=== PATIENT | female | born 1970 | race Caucasian/White ===

== ENCOUNTER 2019-03-02 12:12 | Emergency (ER) | payer MEDICARE, MEDICAID, SELFPAY ==
[2019-03-02 12:33] VITALS: BP 117/71; PULSE 80; RESP 18; TEMP 36.6; O2SAT 97; BMI 34.2
[2019-03-02 14:30] LABS: Basophils # 0.1 10^3/uL (0.0-0.1); Basophils % 0.8 %; Eosinophils # 0.1 10^3/uL (0.0-0.8); Hematocrit 42.7 % (37.0-47.0); Hemoglobin 14.5 g/dL (11.5-15.3); Lymphocytes # 2.1 10^3/uL (0.8-4.8); Lymphocytes % 33.1 %; Mean Corpuscular Hemoglobin 31.4 pg (28.0-34.0); Mean Corpuscular Volume 92.4 fL (81-99); Mean Platelet Volume 9.3 fL (7.4-10.4); Monocytes # 0.4 10^3/uL (0.2-0.9); Monocytes % 6.1 %; Neutrophils # 3.6 10^3/uL (1.8-7.7); Neutrophils % 58.5 %; Nucleated Red Blood Cells % 0 %; Platelet Count 279 10^3/cmm (130-400); Red Blood Count 4.62 10^6/uL (4.1-5.3); Red Cell Distribution Width 14.9 % (12.1-15.1); White Blood Count 6.2 10^3/uL (4.0-10.0)
[2019-03-02 14:48] LABS: Alanine Aminotransferase 29 U/L (0-33); Albumin Level 5.4 g/dL (3.5-5.2); Alkaline Phosphatase 79 IU/L (35-105); Anion Gap 17.9 (5-19); Aspartate Amino Transferase 22 U/L (0-32); Blood Urea Nitrogen 14 mg/dL (6-20); Calcium 10.1 mg/Dl (8.6-10.0); Carbon Dioxide 21 mmol/L (22-29); Chloride 104 mmol/L (98-107); Glomerular Filtration Rate 58.5 mL/min (90-130); Glucose 94 mg/dL (74-109); Lipase 26 U/L (13-60); Potassium 3.9 mmol/L (3.5-5.1); Sodium 139 mmol/L (136-145); Total Bilirubin 0.8 mg/dL (0.15-1.2); Total Protein 7.4 g/dL (6.6-8.7)
--- NOTE | 2019-03-02 18:19 | W.ED.GENADLT ---
HPI - General Adult General: Chief complaint: Abdominal Pain Stated complaint: Thinks has CDiff Time Seen by Provider: 03/02/19 18:08 History of Present Illness: Associated symptoms: Deny chest pain, dyspnea, headache(s), nausea, rash or vomiting Review of Systems Const: Denies: fever, chills or body aches Eyes: Denies: change in vision or blurry vision ENMT: Denies: throat pain or nasal congestion Card: Denies: chest pain or shortness of breath on exertion Resp: Denies: shortness of breath, productive cough or non-productive cough GI: Reports: abdominal pain, change in bowel habits and change in stool character (smells like c diff she has had before with her colostomy); Denies: nausea or vomiting Musc: Reports: neck pain, back pain and extremity pain Skin/Breast: Denies: rash Neuro: Denies: headache Psych: Denies: anxiety or depression Alcon/Lymph: Denies: easy bruising PFSH ED PFSH: Statuses (acute, chronic, etc) shown below reflect problem list status as previously entered and may not be historically accurate Social History Smoking and tobacco status: current every day smoker Physical Exam Const: COMMON NORMALS: no apparent distress, average body habitus and oriented x3 HENMT: COMMON NORMALS: normocephalic HEAD & SCALP: normal to inspection and normocephalic FACE & SINUS: normal facial exam Eye: COMMON NORMALS: conjunctivae normal GENERAL EYE: normal appearance of both eyes CONJUNCTIVA: Yes conjunctivae normal Neck/C-Spine: COMMON NORMALS: no JVD Chest: COMMONS NORMALS: inspection of chest normal Resp: COMMON NORMALS: normal respiratory effort and clear to auscultation bilaterally AUSCULTATION: clear to auscultation bilaterally Cardio: COMMON NORMALS: no JVD, regular rate and regular rhythm RATE: regular rate RHYTHM: regular rhythm GI: COMMON NORMALS: normal to inspection, nondistended, normoactive bowel sounds Back/Pelvis: THORACIC SPINE/UPPER BACK: Yes paraspinal muscle tenderness LUMBAR SPINE/LOWER BACK: Yes paraspinal muscle tenderness PELVIS: Yes tenderness over symphysis pubis Extremity: COMMON NORMALS: normal to inspection and full ROM Neuro: COMMON NORMALS: oriented x3 Course Vital Signs: Vital signs: Vital Signs Temperature 97.9 F 03/02/19 12:33 Pulse Rate 80 03/02/19 12:33 Respiratory Rate 18 03/02/19 12:33 Blood Pressure 117/71 03/02/19 12:33 Pulse Oximetry 97 03/02/19 12:33 [facility] - General Adult Lab Data: Labs: Lab Results 03/02/19 03/02/19 Range/Units 14:22 14:22 WBC 6.2 (4.0-10.0) 10^3/ uL RBC 4.62 (4.1-5.3) 10^6/u L Hgb 14.5 (11.5-15.3) g/dL Hct 42.7 (37.0-47.0) % MCV 92.4 (81-99) fL MCH 31.4 (28.0-34.0) pg MCHC 34.0 (30.0-36.0) g/dL RDW 14.9 (12.1-15.1) % Plt Count 279 (130-400) 10^3/c mm MPV 9.3 (7.4-10.4) fL Neut % (Auto) 58.5 % Lymph % (Auto) 33.1 % Hendricks % (Auto) 6.1 % Eos % (Auto) 1.0 % Baso % (Auto) 0.8 % Neut # (Auto) 3.6 (1.8-7.7) 10^3/u L Lymph # (Auto) 2.1 (0.8-4.8) 10^3/u L Hendricks # (Auto) 0.4 (0.2-0.9) 10^3/u L Eos # (Auto) 0.1 (0.0-0.8) 10^3/u L Baso # (Auto) 0.1 (0.0-0.1) 10^3/u L Nucleated RBC % (a uto) 0 % Nucleated RBCs # 0.0 /100WBC Sodium 139 (136-145) mmol/L Potassium 3.9 (3.5-5.1) mmol/L Chloride 104 (98-107) mmol/L Carbon Dioxide 21 L (22-29) mmol/L Anion Gap 17.9 (5-19) BUN 14 (6-20) mg/dL Creatinine 1.0 H (0.5-0.9) mg/dL GFR Calculation 58.5 L (90-130) mL/min Glucose 94 (74-109) mg/dL Calcium 10.1 H (8.6-10.0) mg/Dl Total Bilirubin 0.8 (0.15-1.2) mg/dL AST 22 (0-32) U/L ALT 29 (0-33) U/L Alkaline Phosphata se 79 (35-105) IU/L Total Protein 7.4 (6.6-8.7) g/dL Albumin 5.4 H (3.5-5.2) g/dL Globulin 2.0 (1.3-4.6) g/dL Lipase 26 (13-60) U/L Discharge Plan Discharge Patient Disposition: Home, Self-Care Clinical Impression: Diarrhea, Chronic back pain Condition: Stable Prescriptions: No Action Pending RF: 0 Referrals: Ayan Jay MD [Primary Care Provider] - Discharge Diet: Advance as tolerated Discharge Activity: Increase activity as tolerated Patient Instructions: Acute Diarrhea (ED) Activity Restrictions/Additional Instructions: follow up with PCP as directed in 1 week, lortab 5/325 #10 1 q 6 hours prn, and flagyl 500mg bid for 10 days Coding Level of Care Code ED Summer Law Associate for Vicente Tobin
[2019-03-02 19:01] VITALS: BP 109/61; PULSE 72; RESP 18; O2SAT 92
== END 2019-03-02 18:45 | disposition home or self-care (01) ==
PROVIDERS: Physician Assistant; Emergency Provider Nurse Practitioner Family; Family Provider Family Medicine; PCP Family Medicine
DX: R19.7 Diarrhea, unspecified (principal); G89.29 Other chronic pain; M54.9 Dorsalgia, unspecified; F17.210 Nicotine dependence, cigarettes, uncomplicated
CPT/HCPCS: 36415; 80053; 83690; 85025; 87493; 99282

== ENCOUNTER 2019-03-11 17:04 | Emergency (ER) | payer MEDICARE, MEDICAID, SELFPAY ==
[2019-03-11] VITALS (9 sets, daily range): BP systolic 104–112; BP diastolic 54–78; PULSE 80–92; RESP 17–22; TEMP 36.4; O2SAT 94–99; BMI 34.2
--- NOTE | 2019-03-11 18:47 | ED_ITS ---
HPI - Abdominal Pain General: Chief Complaint: Abdominal Pain Stated Complaint: puking Time Seen by Provider: 03/11/19 18:06 History of Present Illness: HPI narrative: Patient is a 49-year-old female comes into the ED with nausea, vomiting and diarrhea and abdominal pain starting a week ago. Denies a fever but does have chills. Patient does have a headache and states that her colonoscopy has had more output the last 24 hours then usual. Denies chest pain, shortness of breath, Numbness or tingling to the extremities, weakness to the extremities, upper respiratory symptoms, cough, dysuria, hematuria or blood in ostomy output. Patient was seen for abdominal pain that we go and was put on a prescription of Keflex and still has multiple doses left of Keflex course. Review of Systems General: Reports: 10 or more systems reviewed and unremarkable except in HPI and below PFSH ED PFSH: Statuses (acute, chronic, etc) shown below reflect problem list status as previously entered and may not be historically accurate Social History Smoking and tobacco status: current every day smoker Physical Exam Const: COMMON NORMALS: oriented x3 HENMT: COMMON NORMALS: normocephalic HEAD & SCALP: normocephalic MOUTH: moist mucous membranes abnormal (mild) Details: parched THROAT: posterior oropharynx normal and uvula midline Neck/C-Spine: COMMON NORMALS: supple GENERAL: Yes normal visual inspection Resp: COMMON NORMALS: normal respiratory effort, no retractions, no use of accessory muscles and clear to auscultation bilaterally AUSCULTATION: clear to auscultation bilaterally Cardio: COMMON NORMALS: regular rate, regular rhythm, S1 normal heart sound, S2 normal heart sound, no gallops, no clicks, no murmurs and peripheral pulses 2+ throughout RATE: regular rate RHYTHM: regular rhythm HEART SOUNDS: S1 normal and S2 normal PERIPHERAL PULSES: pulses 2+ throughout GI: COMMON NORMALS: normal to inspection, nondistended, normoactive bowel sounds, soft to palpation, non-tender and no masses INSPECTION: Yes ostomy present AUSCULTATION: Yes normoactive bowel sounds PALPATION: Yes soft and Yes tender (mild generalized throughout abdomen) : COMMON NORMALS: Yes no CVA tenderness BLADDER/KIDNEY EXAM: Yes no CVA tenderness Back/Pelvis: COMMON NORMALS: no CVA tenderness Neuro: COMMON NORMALS: oriented x3 GAIT: Yes normal gait Skin: COMMON NORMALS: no rashes or lesions noted GENERAL SKIN EXAM: no rashes or lesions noted Course ED course: CT scan of the abdomen and pelvis showed mild colitis. Patient's pain and nausea improved with pain meds, IV fluids and Zofran. Vital Signs: Vital signs: Vital Signs Temperature 97.5 F L 03/11/19 17:44 Pulse Rate 80 03/11/19 23:59 Respiratory Rate 17 03/11/19 23:00 Blood Pressure 108/54 03/11/19 23:59 Pulse Oximetry 94 03/11/19 23:59 MDM - Abdominal Pain Lab Data: Labs: Lab Results 03/11/19 03/11/19 Range/Units 19:04 19:04 WBC 10.5 H (4.0-10.0) 10^3/ uL RBC 4.85 (4.1-5.3) 10^6/u L Hgb 15.3 (11.5-15.3) g/dL Hct 44.8 (37.0-47.0) % MCV 92.4 (81-99) fL MCH 31.5 (28.0-34.0) pg MCHC 34.2 (30.0-36.0) g/dL RDW 14.6 (12.1-15.1) % Plt Count 232 (130-400) 10^3/c mm MPV 9.3 (7.4-10.4) fL Neut % (Auto) 89.0 % Lymph % (Auto) 4.4 % Gates % (Auto) 4.5 % Eos % (Auto) 1.2 % Baso % (Auto) 0.3 % Neut # (Auto) 9.3 H (1.8-7.7) 10^3/u L Lymph # (Auto) 0.5 L (0.8-4.8) 10^3/u L Gates # (Auto) 0.5 (0.2-0.9) 10^3/u L Eos # (Auto) 0.1 (0.0-0.8) 10^3/u L Baso # (Auto) 0.0 (0.0-0.1) 10^3/u L Nucleated RBC % (a uto) 0 % Nucleated RBCs # 0.0 /100WBC Sodium 135 L (136-145) mmol/L Potassium 4.3 (3.5-5.1) mmol/L Chloride 98 (98-107) mmol/L Carbon Dioxide 24 (22-29) mmol/L Anion Gap 17.3 (5-19) BUN 13 (6-20) mg/dL Creatinine 1.1 H (0.5-0.9) mg/dL GFR Calculation 52.4 L (90-130) mL/min Glucose 113 H (74-109) mg/dL Calcium 10.4 H (8.6-10.0) mg/Dl Total Bilirubin 0.9 (0.15-1.2) mg/dL AST 34 H (0-32) U/L ALT 37 H (0-33) U/L Alkaline Phosphata se 77 (35-105) IU/L Total Protein 7.5 (6.6-8.7) g/dL Albumin 4.8 (3.5-5.2) g/dL Globulin 2.7 (1.3-4.6) g/dL Discharge Plan Discharge Patient Disposition: Home, Self-Care Clinical Impression: Colitis Condition: Stable Prescriptions: New Zofran 4 mg tablet 4 mg PO DAILY Qty: 14 RF: 0 dicyclomine 20 mg tablet 20 mg PO QID 7 Days Qty: 28 RF: 0 No Action Pending RF: 0 Discharge Orders: Discharge Order (Routine); Ordered 03/11/19 Ordered By: Gustabo Salamanca Referrals: Ayan Jay MD [Primary Care Provider] - Discharge Diet: Advance as tolerated Discharge Activity: Increase activity as tolerated Activity Restrictions/Additional Instructions: Follow-up with her primary care doctor in 5-7 days for reevaluation. Take Tylenol as needed for fevers. Take the Prescribed Zofran as needed for nausea and the dicyclomine for abdominal pain and cramping. Drink plenty of fluids. Return to the ED if symptoms continue to worsen or he is showing signs of dehydration. Continue taking your previously prescribed antibiotic Keflex. Continue all home medications. Discharge Date/Time: 03/12/19 00:00 Coding Level of Care Code ED Promotional Advertising Assistant for Vicente Tobin
[2019-03-11 19:11] LABS: Basophils % 0.3 %; Eosinophils # 0.1 10^3/uL (0.0-0.8); Eosinophils % 1.2 %; Hematocrit 44.8 % (37.0-47.0); Hemoglobin 15.3 g/dL (11.5-15.3); Lymphocytes # 0.5 10^3/uL (0.8-4.8); Lymphocytes % 4.4 %; Mean Corpuscular HGB Conc 34.2 g/dL (30.0-36.0); Mean Corpuscular Hemoglobin 31.5 pg (28.0-34.0); Mean Corpuscular Volume 92.4 fL (81-99); Mean Platelet Volume 9.3 fL (7.4-10.4); Monocytes # 0.5 10^3/uL (0.2-0.9); Monocytes % 4.5 %; Neutrophils # 9.3 10^3/uL (1.8-7.7); Nucleated Red Blood Cells % 0 %; Platelet Count 232 10^3/cmm (130-400); Red Blood Count 4.85 10^6/uL (4.1-5.3); Red Cell Distribution Width 14.6 % (12.1-15.1); White Blood Count 10.5 10^3/uL (4.0-10.0)
[2019-03-11] MEDS: sodium chloride 0.9% 1,000 ML 999 ML IV ×2 (19:12→23:12)
[2019-03-11] MEDS: morphine 4 mg/mL SDV 1 mL IVP ×2 (19:12→19:44)
[2019-03-11] MEDS: ondansetron 2 mg/ML SDV 2 mL 4 MG IVP ×2 (19:12→20:28)
[2019-03-11 19:28] LABS: Alanine Aminotransferase 37 U/L (0-33); Albumin Level 4.8 g/dL (3.5-5.2); Alkaline Phosphatase 77 IU/L (35-105); Anion Gap 17.3 (5-19); Aspartate Amino Transferase 34 U/L (0-32); Blood Urea Nitrogen 13 mg/dL (6-20); Calcium 10.4 mg/Dl (8.6-10.0); Carbon Dioxide 24 mmol/L (22-29); Chloride 98 mmol/L (98-107); Globulin 2.7 g/dL (1.3-4.6); Glomerular Filtration Rate 52.4 mL/min (90-130); Glucose 113 mg/dL (74-109); Potassium 4.3 mmol/L (3.5-5.1); Sodium 135 mmol/L (136-145); Total Bilirubin 0.9 mg/dL (0.15-1.2); Total Protein 7.5 g/dL (6.6-8.7)
--- NOTE | 2019-03-11 20:32 | PC.NURSE ---
pt states'if i breath through my nose it's about am 8, if I breath through my mouth I want to cry.'
--- NOTE | 2019-03-11 20:34 | PC.NURSE ---
pt states she doesn't want anymore morphine.
--- NOTE | 2019-03-11 20:48 | CTR_ITS ---
PROCEDURE INFORMATION: Exam: CT Abdomen And Pelvis With Contrast Exam date and time: 03/11/2019 9:00 PM Age: 49 years old Clinical indication: Nausea and vomiting; Abdominal pain; Acute; Patient HX: HX colon CA; Additional info: Nausea, vomiting, abdominal pain TECHNIQUE: Imaging protocol: Computed tomography of the abdomen and pelvis with intravenous contrast. Total DLP: 1434.87 mGy-cm Radiation optimization: All CT scans at this facility use at least one of these dose optimization techniques: automated exposure control; mA and/or kV adjustment per patient size (includes targeted exams where dose is matched to clinical indication); or iterative reconstruction. Contrast material: VISI 300; Contrast volume: 95 ml; Contrast route: 20G; COMPARISON: CT abdomen pelvis w con* [id number] 11/18/2018 5:43 PM FINDINGS: Liver: Normal. No mass. Gallbladder and bile ducts: Normal. No calcified stones. No ductal dilation. Pancreas: Moderate fatty atrophy of the pancreas. Spleen: Normal. No splenomegaly. Adrenals: Normal. No mass. Kidneys and ureters: Normal. No hydronephrosis. Stomach and bowel: Distal colon resection with left lower quadrant ostomy. There are air-fluid levels in the distal colon suggesting mild nonspecific colitis versus other diarrheal illness. There are postoperative changes in lower midline small bowel loops. Appendix: No evidence of appendicitis. Intraperitoneal space: Unremarkable. No free air. No significant fluid collection. Vasculature: Unremarkable. No abdominal aortic aneurysm. Lymph nodes: Unremarkable. No enlarged lymph nodes. Bladder: Unremarkable as visualized. Reproductive: Unremarkable as visualized. Bones/joints: Unremarkable. No acute fracture. Soft tissues: Unremarkable. CT/CT abdomen pelvis w con* [id number] IMPRESSION: Distal colon resection with left lower quadrant ostomy. There are air-fluid levels in the distal colon suggesting mild nonspecific colitis versus other diarrheal illness. Radiation Dose CTDIVOL = (mGy): DLP = 1434.87 (mGy-cm)
[2019-03-11] MEDS: fentaNYL 50 mcg/mL INJ 2mL 25 MCG IVP (20:50)
[2019-03-11] MEDS: iodixanol 320 mg/mL 100mL Btl IV (21:09)
[2019-03-11] MEDS: acetaminophen 500 mg Tablet PO (23:51)
== END 2019-03-12 | disposition home or self-care (01) ==
PROVIDERS: Emergency Provider Physician Assistant; Family Provider Family Medicine; PCP Family Medicine
DX: K52.9 Noninfective gastroenteritis and colitis, unspecified (principal); F17.210 Nicotine dependence, cigarettes, uncomplicated
CPT/HCPCS: 36415; 74177; 80053; 85025; 96360; 96361; 96374; 96375; 99281; J2270; J2405; J3010; J7030; Q9967

== ENCOUNTER 2019-04-09 15:49 | Emergency (ER) | payer MEDICARE, MEDICAID, SELFPAY ==
[2019-04-09 15:54] VITALS: BP 141/91; PULSE 83; RESP 16; TEMP 36.7; O2SAT 98; BMI 34.2
--- NOTE | 2019-04-09 16:01 | W.ED.GENADLT ---
HPI - General Adult General: Chief complaint: General Medical Stated complaint: poss flu Time Seen by Provider: 04/09/19 16:01 Source: patient Mode of arrival: ambulatory Limitations: no limitations History of Present Illness: HPI narrative: Patient comes in with malaise x2 days with worsening respiratory symptoms starting last night. Patient reports chills but no significant fever. Patient appears mildly unwell. Patient appears in no pain. Associated symptoms: Reports malaise Review of Systems General: Reports: 10 or more systems reviewed and unremarkable except in HPI and below Const: Reports: chills, body aches and malaise PFSH ED PFSH: Statuses (acute, chronic, etc) shown below reflect problem list status as previously entered and may not be historically accurate Medical History (Updated 04/09/19 @ 16:15 by MELODY Villanueva) CKD (chronic kidney disease) (Acute) Immunosuppression (Acute) Osteoarthritis of knees, bilateral (Acute) Psoriasis (Acute) Psoriatic arthritis (Acute) Social History Smoking and tobacco status: current every day smoker Physical Exam Const: COMMON NORMALS: no apparent distress and oriented x3 GENERAL APPEARANCE: cooperative HENMT: COMMON NORMALS: normocephalic, external ears normal, EAC's normal and TM's normal bilaterally HEAD & SCALP: normal to inspection and normocephalic FACE & SINUS: normal facial exam NOSE: mucous membranes and turbinates abnormal erythematous and nasal discharge GENERAL EAR: hearing not grossly impaired EXTERNAL EAR: Yes external ears normal EXTERNAL AUDITORY CANAL: EAC's normal TYMPANIC MEMBRANE: TM's normal bilaterally MOUTH: oral and palatal mucosa normal THROAT: posterior oropharynx abnormal cobblestoning and erythema Eye: COMMON NORMALS: PERRL and EOMs intact bilaterally PUPIL: Yes PERRL Neck/C-Spine: COMMON NORMALS: full ROM and no lymphadenopathy Lymph: LYMPHATIC: no lymphedema noted Chest: COMMONS NORMALS: inspection of chest normal and palpation of chest normal Resp: COMMON NORMALS: normal respiratory effort and clear to auscultation bilaterally AUSCULTATION: clear to auscultation bilaterally Cardio: COMMON NORMALS: regular rate and regular rhythm RATE: regular rate RHYTHM: regular rhythm GI: COMMON NORMALS: normal to inspection, nondistended, normoactive bowel sounds and non-tender : COMMON NORMALS: Yes no CVA tenderness BLADDER/KIDNEY EXAM: Yes no CVA tenderness Back/Pelvis: COMMON NORMALS: no CVA tenderness and thoracic and lumbar spine normal to inspection Extremity: COMMON NORMALS: normal to inspection GENERAL: No edema Neuro: COMMON NORMALS: oriented x3, moves all extremities and no focal motor deficits Psych: COMMON NORMALS: mental status grossly normal and cooperative Skin: COMMON NORMALS: no rashes or lesions noted GENERAL SKIN EXAM: no rashes or lesions noted Course Vital Signs: Vital signs: Vital Signs Temperature 98.1 F 04/09/19 15:54 Pulse Rate 83 04/09/19 15:54 Respiratory Rate 16 04/09/19 15:54 Blood Pressure 141/91 04/09/19 15:54 Pulse Oximetry 98 04/09/19 15:54 MDM - General Adult MDM Narrative: Medical decision making narrative: Patient comes in today with malaise and exposure to the flu. Patient reports granddaughter had the flu around her and 2 days ago she started feeling poorly and last night she felt worse with rate with upper respiratory symptoms. Exam notes nasal drainage and posterior pharynx redness. Respirations are even lungs are clear to auscultation. Vital signs are stable. Differential diagnosis includes influenza, upper respiratory infection, viral syndrome. Reviewed exam with patient recommended treatment for the flu since she has exposure positively identified and is starting symptoms in the last 2448 hrs. Patient reports understanding of care plan and need for follow-up. Discharge Plan Discharge Patient Disposition: Home, Self-Care Clinical Impression: Influenza Condition: Stable Prescriptions: New oseltamivir 75 mg capsule 75 mg PO BID 5 Days Qty: 10 RF: 0 No Action Cosentyx Pen 150 mg/mL pen injector 150 mg SUBCUT .once monthly RF: 0 methotrexate sodium 25 mg/mL solution 25 mg IM .once weekly RF: 0 cyclobenzaprine 5 mg tablet 5 mg PO BID PRNRF: 0 folic acid 1 mg tablet 1 mg PO DAILY RF: 0 prednisone 5 mg tablet See Rx Instructions PO DAILY RF: 0 pregabalin [Lyrica] 200 mg capsule 200 mg PO TID RF: 0 Eliquis 5 mg tablet 5 mg PO BID RF: 0 diltiazem HCl [Cardizem] 30 mg tablet 30 mg PO DAILY RF: 0 sumatriptan succinate [Imitrex] 50 mg tablet 50 mg PO Q2H PRNRF: 0 nitroglycerin 0.3 mg tablet, sublingual 0.3 mg SUBLINGUAL Q5M PRNRF: 0 hydroxyzine HCl 25 mg tablet 25 mg PO DAILY PRNRF: 0 quetiapine [Seroquel] 100 mg tablet See Rx Instructions PO DAILY RF: 0 albuterol sulfate [ProAir HFA] 90 mcg/actuation HFA aerosol inhaler 1 inh INHALATION DAILY RF: 0 ropinirole 1 mg tablet 1 mg PO .at bedtime RF: 0 fluoxetine [Prozac] 40 mg capsule 40 mg PO DAILY RF: 0 Symbicort 160-4.5 mcg/actuation HFA aerosol inhaler 2 puff INHALATION BID RF: 0 (DME) insulin syringe-needle U-100 [TRUEplus Insulin] 1 mL 30 gauge x 5/16 syringe See Rx Instructions .ROUTE .MEDSUPPLY Qty: 10 RF: 0 Zofran 4 mg tablet 4 mg PO DAILY Qty: 14 RF: 0 Pending RF: 0 Discharge Orders: Discharge Order (Routine); Ordered 04/09/19 Ordered By: Bridger Shaver Referrals: Ayan Jay MD [Primary Care Provider] - Discharge Diet: Usual diet Discharge Activity: Increase activity as tolerated Patient Instructions: Influenza (ED) Activity Restrictions/Additional Instructions: Drink plenty of water Warm baths for comfort Medications as directed Follow-up with primary care as needed Return to ER for shortness of breath or uncontrolled fever Coding Level of Care Code ED Associate Professor Of Musicology for Vicente Tobin Exam Problem Focused
[2019-04-09 16:25] VITALS: BP 113/82; PULSE 90; RESP 20; O2SAT 98
== END 2019-04-09 16:22 | disposition home or self-care (01) ==
LOC: ER 17:56
PROVIDERS: Emergency Provider Nurse Practitioner Family; Family Provider Family Medicine; PCP Family Medicine
DX: J11.1 Influenza due to unidentified influenza virus with other respiratory manifestations (principal); Z79.01 Long term (current) use of anticoagulants; Z79.4 Long term (current) use of insulin; F17.210 Nicotine dependence, cigarettes, uncomplicated
CPT/HCPCS: 99281

== ENCOUNTER 2019-05-04 16:43 | Emergency (ER) | payer MEDICARE, MEDICAID, SELFPAY ==
[2019-05-04 16:51] VITALS: BP 105/66; PULSE 101; RESP 20; TEMP 36.9; O2SAT 99; BMI 31.4
--- NOTE | 2019-05-04 16:59 | W.ED.FALL ---
HPI - Fall General: Chief Complaint: Fall Stated Complaint: fall Time Seen by Provider: 05/04/19 16:59 Source: patient Mode of arrival: ambulatory Limitations: no limitations History of Present Illness: HPI Narrative: Patient is a 49-year-old female who presents to ED today with complaints of back pain. Patient states yesterday she was moving a mattress when the mattress somehow slipped causing her to fall backwards and strike her back on a propane heater/wall heater. This occurred yesterday. Patient has been ambulatory without difficulty. MD complaint: fall Onset (ago): day(s) Fall from: standing Fall witnessed: yes, by family Place fall occurred: home Loss of consciousness: None Prolonged down time: no Symptoms prior to fall: none Context: tripped/slipped Location of injury: back Associated symptoms-after fall: Reports neck pain; Denies abdominal pain, chest pain, headache(s) or lightheadedness Review of Systems Const: Denies: fever, chills, body aches, change in appetite, change in weight or fatigue Card: Denies: chest pain, palpitations, irregular heart rhythm, edema, lightheadedness, syncope or pre-syncope Resp: Denies: shortness of breath, productive cough, coughing up blood or chest congestion GI: Denies: abdominal pain, nausea or vomiting : Denies: flank pain, difficulty urinating, painful urination, urinary frequency or urinary urgency Musc: Reports: neck pain and back pain; Denies: extremity pain, extremity swelling, joint pain, joint swelling, redness, joint warmth or joint stiffness Skin/Breast: Denies: rash Neuro: Denies: headache, numbness in extremities, weakness in extremities or changes in sensation PFS ED PFSH: Medical History (Updated 05/04/19 @ 18:32 by GOOD Arevalo) CKD (chronic kidney disease) Immunosuppression Osteoarthritis of knees, bilateral Psoriasis Psoriatic arthritis Social History Smoking and tobacco status: current every day smoker Physical Exam Const: COMMON NORMALS: no apparent distress, average body habitus, oriented x3, no limitations, healthy appearing, alert and well nourished Neck/C-Spine: COMMON NORMALS: full ROM CERVICAL SPINE: Yes cervical spine tenderness C6 and C7 Back/Pelvis: THORACIC SPINE/UPPER BACK: Yes thoracic spinal tenderness T-spine tenderness location: T3, T4 and T5 LUMBAR SPINE/LOWER BACK: Yes normal to inspection, Yes lumbar ROM normal and Yes straight leg raise negative bilaterally PELVIS: Yes buttocks normal SACROILIAC JOINTS: Yes SI joints normal Extremity: COMMON NORMALS: normal to inspection and full ROM Neuro: COMMON NORMALS: oriented x3 SENSORIUM/ORIENTATION: Yes alert Skin: COMMON NORMALS: no rashes or lesions noted GENERAL SKIN EXAM: no rashes or lesions noted Course Vital Signs: Vital signs: Vital Signs Temperature 98.5 F 05/04/19 16:51 Pulse Rate 101 H 05/04/19 16:51 Respiratory Rate 20 H 05/04/19 16:51 Blood Pressure 105/66 05/04/19 16:51 Pulse Oximetry 96 05/04/19 17:09 MDM - Fall MDM Narrative: Medical decision making narrative: Patient's pain seems out of proportion to her examination her mechanism of injury. When asked patient does report a history of fibromyalgia. She nearly jumps off the table with even light palpation of her back and spine however rolls around on the table and changes position from her back to her side without difficulties. Her x-rays here are without any acute abnormalities. Patient was treated with IM Toradol and Norflex. She is already taking several medications including steroids and anti-inflammatories. Will write her for 6 Tylenol #3 and recommend she follows up with primary care. Discharge Plan Discharge Patient Disposition: Home, Self-Care Clinical Impression: Contusion of back Qualifiers: Encounter type: initial encounter Laterality: unspecified laterality Qualified Code(s): S20.229A - Contusion of unspecified back wall of thorax, initial encounter Condition: Stable Prescriptions: New Tylenol-Codeine #3 300-30 mg tablet 1 tab PO Q6H PRN (Reason: pain) Qty: 6 RF: 0 No Action Cosentyx Pen 150 mg/mL pen injector 150 mg SUBCUT .once monthly RF: 0 methotrexate sodium 25 mg/mL solution 25 mg IM .once weekly RF: 0 cyclobenzaprine 5 mg tablet 5 mg PO BID PRNRF: 0 folic acid 1 mg tablet 1 mg PO DAILY RF: 0 prednisone 5 mg tablet See Rx Instructions PO DAILY RF: 0 pregabalin [Lyrica] 200 mg capsule 200 mg PO TID RF: 0 Eliquis 5 mg tablet 5 mg PO BID RF: 0 diltiazem HCl [Cardizem] 30 mg tablet 30 mg PO DAILY RF: 0 sumatriptan succinate [Imitrex] 50 mg tablet 50 mg PO Q2H PRNRF: 0 nitroglycerin 0.3 mg tablet, sublingual 0.3 mg SUBLINGUAL Q5M PRNRF: 0 hydroxyzine HCl 25 mg tablet 25 mg PO DAILY PRNRF: 0 quetiapine [Seroquel] 100 mg tablet See Rx Instructions PO DAILY RF: 0 albuterol sulfate [ProAir HFA] 90 mcg/actuation HFA aerosol inhaler 1 inh INHALATION DAILY RF: 0 ropinirole 1 mg tablet 1 mg PO .at bedtime RF: 0 fluoxetine [Prozac] 40 mg capsule 40 mg PO DAILY RF: 0 Symbicort 160-4.5 mcg/actuation HFA aerosol inhaler 2 puff INHALATION BID RF: 0 (DME) insulin syringe-needle U-100 [TRUEplus Insulin] 1 mL 30 gauge x 5/16 syringe See Rx Instructions .ROUTE .MEDSUPPLY Qty: 10 RF: 0 Zofran 4 mg tablet 4 mg PO DAILY Qty: 14 RF: 0 Pending RF: 0 Discharge Orders: Discharge Order (Routine); Ordered 05/04/19 Ordered By: Steffanie Zhang Referrals: Ayan Jay MD [Primary Care Provider] - Discharge Diet: Usual diet Discharge Activity: Increase activity as tolerated Activity Restrictions/Additional Instructions: Follow up with primary care in one week for continued pain. 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
--- NOTE | 2019-05-04 17:07 | XR_ITS ---
WS: [id number] XR cervical spine 3V* 12572 REASON FOR EXAM: injury/pain FINDINGS: The disc spaces and vertebral bodies are normal. Normal alignment of the cervical spine is seen. The cervicothoracic junction was normal. The lamina, pedicles, spinous processes are all normal. The dominant toward process was normal. XR/XR cervical spine 3V* 15875 IMPRESSION: Normal cervical spine series.
--- NOTE | 2019-05-04 17:07 | XR_ITS ---
WS: [id number] XR thoracic spine 3V* 97625 REASON FOR EXAM: injury/pain FINDINGS: In the lateral projection the disc spaces were all normal. The vertebral bodies show no fractures or dislocation. The lamina, pedicles, spinous processes are all normal. XR/XR thoracic spine 3V* 43510 IMPRESSION: Negative thoracic spine series.
[2019-05-04 17:09] VITALS: O2SAT 96
[2019-05-04] MEDS: ketorolac 60 mg/2 mL INJ IM (17:21)
[2019-05-04] MEDS: orphenadrine 30 mg/mL Inj 2 mL 60 MG IM (17:50)
== END 2019-05-04 18:42 | disposition home or self-care (01) ==
PROVIDERS: Emergency Provider Physician Assistant; Family Provider Family Medicine; PCP Family Medicine
DX: S20.229A Contusion of unspecified back wall of thorax, initial encounter (principal); N18.9 Chronic kidney disease, unspecified; F17.210 Nicotine dependence, cigarettes, uncomplicated; M54.2 Cervicalgia; M17.0 Bilateral primary osteoarthritis of knee; L40.50 Arthropathic psoriasis, unspecified; Z79.899 Other long term (current) drug therapy; W01.198A Fall on same level from slipping, tripping and stumbling with subsequent striking against other object, initial encounter; X50.0XXA Overexertion from strenuous movement or load, initial encounter
CPT/HCPCS: 12345; 72040; 72072; 96372; 99281; 99283; J1885; J2360

== ENCOUNTER 2019-05-10 10:55 | Outpatient (CLI) | payer MEDICARE, MEDICAID, SELFPAY ==
[2019-05-10 12:55] LABS: Basophils # 0.1 10^3/uL (0.0-0.1); Basophils % 0.8 %; Eosinophils # 0.1 10^3/uL (0.0-0.8); Eosinophils % 0.6 %; Hematocrit 38.7 % (37.0-47.0); Hemoglobin 13.4 g/dL (11.5-15.3); Lymphocytes # 1.8 10^3/uL (0.8-4.8); Lymphocytes % 22.4 %; Mean Corpuscular HGB Conc 34.6 g/dL (30.0-36.0); Mean Corpuscular Hemoglobin 30.7 pg (28.0-34.0); Mean Corpuscular Volume 88.6 fL (81-99); Mean Platelet Volume 9.2 fL (7.4-10.4); Monocytes # 0.6 10^3/uL (0.2-0.9); Monocytes % 7.7 %; Neutrophils # 5.4 10^3/uL (1.8-7.7); Neutrophils % 67.9 %; Nucleated Red Blood Cells % 0 %; Platelet Count 326 10^3/cmm (130-400); Red Blood Count 4.37 10^6/uL (4.1-5.3); Red Cell Distribution Width 12.8 % (12.1-15.1); White Blood Count 7.9 10^3/uL (4.0-10.0)
[2019-05-10 13:44] LABS: Thyroid Stimulating Hormone 1.33 uIU/mL (0.27-4.20); Vitamin B12 873 pg/mL (232-1245)
[2019-05-10 13:55] LABS: Alanine Aminotransferase 17 U/L (0-33); Albumin Level 3.7 g/dL (3.5-5.2); Alkaline Phosphatase 68 IU/L (35-105); Anion Gap 19.1 (5-19); Aspartate Amino Transferase 19 U/L (0-32); Blood Urea Nitrogen 9 mg/dL (6-20); Calcium 9.6 mg/dL (8.5-10.5); Carbon Dioxide 21 mmol/L (22-29); Chloride 102 mmol/L (98-107); Globulin 3.9 g/dL (1.3-4.6); Glomerular Filtration Rate 75.6 mL/min (90-130); Glucose 104 mg/dL (65-115); Osmolality Calculated 284 mOsm/kg (285-295); Potassium 3.1 mmol/L (3.5-5.1); Sodium 139 mmol/L (136-145); Total Bilirubin 0.6 mg/dL (0.15-1.2); Total Protein 7.6 g/dL (6.6-8.7)
[2019-05-10 14:12] LABS: Erythrocyte Sedimentation Rate 40 mm/hr (0-15)
--- NOTE | 2019-05-14 11:42 | ONC FU_ITS ---
Dr. Abbasi Patient Follow-Up Note Patient: Maura Hermosillo Unit #: [id number]: [id number] Dicatated By: Tobin Abbasi M.D.Date of Visit:May 10, 2019 Onc Med Follow-up/Prog Note Chief Complaint: Rectal cancer/pulmonary emboli. History of Present Illness: This is a 49 year-old woman with a history of adenocarcinoma of the rectum, stage IIIB (T3, N1, M0). In March 2018 she was diagnosed with pulmonary emboli. Her rectal cancer was initially diagnosed in September of 2008. Her treatment included neoadjuvant chemotherapy followed by low anterior resection with type diverting colostomy in January 2009. She was given additional postoperative adjuvant chemotherapy with modified FOLFOX. She experienced multiple toxicities and after completing 3 biweekly cycles of treatment, and her chemotherapy was then changed to Xeloda. As of August 2009 she had completed 5 cycles of Xeloda. Treatment was stopped at that point when she developed a lower extremity deep vein thrombosis. She ultimately was able to undergo takedown of her colostomy. During followup she had ongoing problems with pain in the rectal/pelvic area and difficulty with bowel function, and ultimately she did opt to have the ostomy replaced. She was last seen her in June 2012. At that point there had been no evidence of recurrence of the rectal cancer. On 03/17/2018 she presented to the emergency room with chest pain and shortness of breath. CT pulmonary angiogram showed nonocclusive thrombus beginning in the right distal main pulmonary artery and extending into the right lobar and segmental branches. Bilateral venous Doppler studies showed no evidence for deep vein thrombosis. She was treated with apixaban, but she stopped after one month, apparently because her prescription was not refilled. On 11/18/2018 she resented to the emergency room again with chest pain and shortness of breath. At that time she also complained of abdominal pain, nausea/vomiting, and black tarry stools. Her symptoms were felt to be GI in origin, though her subsequent EGD showed no abnormal findings. Her repeat CT angiogram of the chest, though, did show a tiny nonocclusive pulmonary embolus in the right lower lobe pulmonary artery. There were no acute findings noted on her CT abdomen/pelvis. She was discharged home on apixaban 10 mg twice a day for 7 days followed by 5 mg twice a day together with aspirin 81 mg daily. A thrombophilia profile drawn prior to discharge was unrevealing. I had seen her for a follow-up visit on 12/26/2018. At that point she appeared stable on apixaban. I had recommended that she have a minimum of 6 months of anticoagulation. Her medical history is also significant for chronic pain, felt to be due to a combination of psoriatic arthritis, osteoarthritis, and fibromyalgia. Her other medical illnesses include hyperlipidemia, COPD, and obstructive sleep apnea. She had suspected mini stroke in 2011. She has a history of Clostridium difficile colitis and she has a history of hepatitis C, though she did not require treatment for it. She has a history of polysubstance abuse. She also has bipolar disorder and PTSD. She has a history of smoking for 45 years, previously as much as 3 to 3 1/2 packs of cigarettes daily. She had cut down to 1 to 1 1/2 packs per day. She is seen for a follow-up visit. She complains that she had an accident last week in which she fell backwards into a wall heater sustaining an injury to her upper left back area. She is still having significant pain from that injury, mainly in the upper back between the shoulder blades. Her other main complaint is that she has been having esophageal spasms. She has been on treatment with diltiazem and nitroglycerin. She also has a lot of acid reflux despite taking Protonix. She is still on anticoagulation with apixaban. She says her energy is crap, but she is doing light work. ECOG score is 1. Her appetite is poor. She has lost weight, and total about 40 pounds. By our scale she is down 27 pounds since her visit in November. She does not have fever. She reports having lots of sweating both during the daytime and at night. She has shortness of breath and she has cough productive of yellow to green mucus. She also has been having some pain in the upper chest. She is still smoking 1 pack of cigarettes daily. Her bowel function has been okay. She has some hesitancy with urination and she sometimes has urgency. She also has chronic lower back pain. Recently she has had headache, and she sometimes has dizziness when she is lying flat. She has numbness in her hands and feet. Medications: Cardizem CD 1 Capsule (of 120 mg) Capsule SR 24 HR Oral daily, Cyclobenzaprine HCl 1 (5 mg) Tablet Oral b.i.d. PRN, Erythromycin 1 Tablet (of 250 mg) Tablet, enteric coated Oral b.i.d., FLUoxetine HCl 1 Tablet (of 40 mg) Capsule Oral daily, Folic Acid 1 Tablet (of 1 mg) Oral daily, hydrOXYzine Pamoate 1 Capsule (of 50 mg) Oral b.i.d., Imitrex 1 Tablet (of 100 mg) Oral daily PRN, Lyrica 1 Capsule (of 100 mg) Oral t.i.d., Methotrexate Sodium (PF) 1 Each (of 1 g/40mL) Injection q on F, Nitroglycerin 1 Tablet (of 0.4 mg) Tablet, sublingual Sublingual daily PRN, Omeprazole 20 mg - Take 1 Capsule Delayed Release Oral daily, Pantoprazole Sodium 1 Tablet (of 40 mg) Tablet, enteric coated Oral b.i.d., PARoxetine HCl 10 mg - Take 1 Tablet Oral daily, QUEtiapine Fumarate 1 Tablet (of 200 ) Oral at bedtime, Requip 1 Tablet (of 4 mg) Oral daily Allergies: Cymbalta and Statins. Review of Systems: Constitutional - Her energy level is low. She takes care of her grandchildren at home. Appetite is poor. She has lost weight. No fever, chills, hot flashes. She has constant sweating during day and night. ECOG score is 1, ENMT - No sinus congestion/drainage. No mouth sores. She has a sore throat today. No difficulty swallowing, Hematologic/Lymphatic - She bruises easily, Respiratory - She is having shortness of breath. She has a cough that is productive of yellow sputum. She is a everyday smoker and she also vapes. No pleuritic pain or hemoptysis, Cardiovascular - She has some generalized chest pain. No palpitations, Gastrointestinal - No nausea or vomiting. She has esopheal spasms, and she has alot of heartburn even with the Protonix. No diarrhea or constipation. No blood in the stool or black stools, Genitourinary (F) - No dysuria or hematuria. No urinary frequency. No urgency or incontinence. She has some hesitancy, Musculoskeletal - Last week she had fallen backwards into a wall heater sustaining an injury to her upper left back. She has pain in the upper back between the shoulder blades and in the upper chest. She has chronic lower back pain, Integumentary - No skin complications, Neurologic - She has some headache. She has some dizziness when he lays down, described as a spinning. She has some numbness in bilateral hands and feet, Psychiatric - She has some anxiety and depression. No insomnia. Vital Signs: Performed on May 10, 2019 11:14 Height - 69.00 in Weight - 206 lbs (LOW) BSA - 2.09 sq.m BMI - 30.42 (HIGH) Temperature - 98.1 F (LOW) Pulse - 93 /min Respiration - 17 /min BP - 115/70 mm(hg) O2 Sat - 98 % Pain - 9 Physical Examination: Constitutional - She does not appear acutely ill, Eyes - Sclerae nonicteric. Conjunctivae clear, ENMT - No lesions noted in the oral cavity, Hematologic/Lymphatic - No cervical, clavicular, or axillary adenopathy, Respiratory - Lungs sound clear with some decrease in air movement bilaterally, Cardiovascular - Heart rhythm is regular. There is no murmur, gallop, or rub noted, Abdomen - Soft. Liver and spleen are not enlarged. There is no abdominal mass or ascites noted and there is no inguinal adenopathy, Extremities - No edema, Integumentary - There is a significant area of ecchymosis in the upper left back area. There is no skin eruption. There are no suspicious skin lesions noted, Neurologic - No focal neurologic deficits noted. Impression: 1. Patient with recurrent thromboembolism including an episode of lower extremity deep vein thrombosis in 2009 and an episode of significant pulmonary emboli in March 2018. She had only short-term anticoagulation for the latter, which I suspect was just due to noncompliance. She had evidence of a tiny pulmonary embolus on a repeat CT angiogram of the chest on 11/18/2018. She had then restarted anticoagulation with apixaban. 2. A thrombophilia profile was obtained during her hospitalization in October was unrevealing. 3. She has been having significant acid reflux symptoms and suspected esophageal spasm, though with no abnormal findings on EGD on 11/20/2018. 4. She has a history of stage IIIB rectal cancer, initially diagnosed in 2008 and treated with neoadjuvant chemoradiation followed by low anterior resection and postoperative adjuvant chemotherapy. She completed treatment in August 2009. Thus far there has been no evidence of recurrence. Her other medical illnesses include: 5. Chronic pain felt to be due to a combination of psoriatic arthritis, osteoarthritis, and fibromyalgia. 6. Hyperlipidemia. 7. COPD. 8. Obstructive sleep apnea. 9. She had suspected mini stroke . 10. She has a history of Clostridium difficile colitis. 11. She has known hepatitis C, for which she has not required treatment. 12. She has a history of polysubstance abuse. 13. Bipolar disorder and PTSD. During follow-up she has remained on anticoagulation with apixaban, thus far with no further thromboembolism, though recently she has reported increased shortness of breath and some pain in the upper chest. She continues to have significant issues with esophageal spasm and acid reflux. She has been losing weight, and she has chronic fatigue and chronic musculoskeletal pain. Plan: She continues anticoagulation with apixaban 5 mg twice daily. She will have repeat laboratory studies today, and as a precaution, she will be scheduled for repeat CT pulmonary angiogram. She will have further evaluation as indicated. Signed By: Tobin Abbasi M.D. <<Signature on File>>
== END 2019-05-10 10:56 | disposition home or self-care (01) ==
PROVIDERS: Family Provider Family Medicine; PCP Family Medicine; Visit Provider Internal Medicine Medical Oncology
DX: Z86.711 Personal history of pulmonary embolism (principal); Z86.718 Personal history of other venous thrombosis and embolism; Z85.048 Personal history of other malignant neoplasm of rectum, rectosigmoid junction, and anus; K21.9 Gastro-esophageal reflux disease without esophagitis; K22.4 Dyskinesia of esophagus; G89.29 Other chronic pain; L40.50 Arthropathic psoriasis, unspecified; M19.90 Unspecified osteoarthritis, unspecified site; R63.4 Abnormal weight loss; R53.82 Chronic fatigue, unspecified; M79.7 Fibromyalgia; E78.5 Hyperlipidemia, unspecified; J44.9 Chronic obstructive pulmonary disease, unspecified; G47.33 Obstructive sleep apnea (adult) (pediatric); B19.20 Unspecified viral hepatitis C without hepatic coma; F31.9 Bipolar disorder, unspecified; F43.10 Post-traumatic stress disorder, unspecified; Z79.01 Long term (current) use of anticoagulants; Z92.3 Personal history of irradiation; Z92.21 Personal history of antineoplastic chemotherapy; Z86.73 Personal history of transient ischemic attack (TIA), and cerebral infarction without residual deficits
CPT/HCPCS: 80053; 82378; 82607; 84443; 85025; 85651; 86141; 99214

== ENCOUNTER 2019-05-23 08:14 | Outpatient (CLI) | payer MEDICARE, MEDICAID, SELFPAY ==
--- NOTE | 2019-05-23 08:21 | CT_ITS ---
WS: [id number] CT CHEST ANGIOGRAPHY WITH REFORMATS HISTORY: SHORTNESS OF BREATH, PULMONARY EMBOLI TECHNIQUE: Contiguous axial images are obtained through the chest during arterial injection of intrav enous contrast. Images are reconstructed to evaluate the pulmonary arteries. MIP imaging also reviewe d. All CT scans at [facility] use at least one of these dose optimization techniques: aut omated exposure control; mA and/or kV adjustment per patient size (includes targeted exams where dose is matched to clinical indication); or iterative reconstruction. CONTRAST: Omnipaque 350; 95 mL IV. DLP: 711.89 mGycm COMPARISON: 11/19/2018 Again noted is the thin linear density in the proximal RIGHT main pulmonary artery extending to the p roximal segmental branches. This has been previously described since 03/17/2018. No new or additional filling defects in the pulmonary arteries. No RIGHT heart strain. Normal thoracic aorta and pulmonary artery size. No pneumonia or pulmonary nodules. There is mild interstitial thickening involving the distal airways which has progressed since 07/02/2010 and 11/19/2018 suggesting there may be acute proces s. No mediastinal or hilar adenopathy. No pericardial or pleural effusions. Hepatomegaly and hepatic steatosis. Liver is incompletely visualized but measures 18.8 cm on the scou t localizer. Incompletely visualized adrenal glands. No osteoblastic or osteolytic bone disease. CT/CT angio chest PE protcl [id number] IMPRESSION: 1. No acute pulmonary embolism. 2. Chronic linear nonocclusive embolic thrombus on the RIGHT similar since 03/01. 3. Mildly progressive distal interstitial thickening throughout both lungs sug gests superimposed mild pneumonitis or endobronchial inflammation. No consolida tion or pneumonia. 4. Hepatomegaly.
[2019-05-23] MEDS: iohexol 350 mg/mL 100 mL Btl IV (08:43)
== END 2019-05-23 08:15 | disposition home or self-care (01) ==
LOC: RADWPI 08:18
PROVIDERS: Family Provider Family Medicine; PCP Family Medicine; Visit Provider Internal Medicine Medical Oncology
DX: I26.99 Other pulmonary embolism without acute cor pulmonale (principal); R06.02 Shortness of breath; R16.0 Hepatomegaly, not elsewhere classified
CPT/HCPCS: 71275; Q9967

== ENCOUNTER → 2019-07-27 07:21 | Outpatient (BNVA) | payer MEDICARE, MEDICAID, SELFPAY | PROVIDERS: Family Provider Family Medicine; PCP Family Medicine; Visit Provider Psychiatry & Neurology Psychiatry | DX: F43.12 Post-traumatic stress disorder, chronic (principal); F33.0 Major depressive disorder, recurrent, mild; G25.81 Restless legs syndrome; F14.21 Cocaine dependence, in remission; F15.21 Other stimulant dependence, in remission; F10.21 Alcohol dependence, in remission; G47.33 Obstructive sleep apnea (adult) (pediatric); F17.200 Nicotine dependence, unspecified, uncomplicated | CPT/HCPCS: 99215 ==

== ENCOUNTER 2019-08-10 20:18 | Emergency (ER) | payer MEDICARE, MEDICAID, SELFPAY ==
[2019-08-10 20:28] VITALS: BP 134/76; PULSE 74; RESP 14; TEMP 37.1; O2SAT 99; BMI 29.2
--- NOTE | 2019-08-10 22:56 | W.ED.ABDPA2 ---
HPI - Abdominal Pain General: Chief Complaint: Abdominal Pain Stated Complaint: UPPER ABD PAIN; ALL THE WAY AROUND Time Seen by Provider: 08/10/19 22:57 History of Present Illness: HPI narrative: Maura is a nice 49-year-old female who comes in complaining of abdominal pain. She states for the past week it is been in the lower abdomen but today after eating some Ramen noodles she developed upper abdominal pain that was severe. Associated Symptoms: Denies chills, coffee ground emesis, constipation, GI cramping, diarrhea, dysuria, fever(s), heartburn, hematochezia, hematuria, hematemesis, melena, nausea, syncope and vomiting Review of Systems Const: Denies: fever(s), chills, body aches, fatigue, malaise or diaphoresis Eyes: Denies: change in vision, blurry vision, blind spots or photophobia ENMT: Denies: throat pain, odynophagia, hoarseness, swelling of lips/tongue, ear or mastoid pain, ear discharge, change in hearing or nasal discharge Card: Denies: chest pain, palpitations, irregular heart rhythm, edema, lightheadedness, syncope, pre-syncope, dyspnea on exertion or orthopnea Resp: Denies: dyspnea, productive cough, non-productive cough, wheezing, hemoptysis or chest congestion GI: Reports: abdominal pain; Denies: nausea, vomiting, hematemesis, coffee ground emesis, heartburn, diarrhea, constipation, GI cramping, hematochezia or melena : Denies: flank pain, dysuria, urinary frequency, urinary urgency or hematuria Musc: Denies: neck pain, back pain, extremity pain, extremity swelling, joint pain, joint swelling, joint redness, joint warmth or joint stiffness Skin/Breast: Denies: rash, pruritus, erythema, skin tenderness or jaundice Neuro: Denies: headache(s), numbness in extremities, weakness in extremities, sensory changes, lack of coordination, difficulty walking, dizziness, vertigo, confusion or Slurred speech present Alcon/Lymph: Denies: easy bruising, easy bleeding, petechiae, purpura or enlarged lymph nodes All/Imm: Denies: urticaria, throat swelling, tongue swelling, facial swelling or acute wheezing PFSH ED PFSH: Medical History (Updated 08/11/19 @ 00:41 by Cony Sampson) Alcohol dependence, in remission Chronic post-traumatic stress disorder CKD (chronic kidney disease) Cocaine dependence, in remission Colostomy in place Immunosuppression Obstructive sleep apnea Osteoarthritis of knees, bilateral Other stimulant dependence, in remission Psoriasis Psoriatic arthritis Restless leg syndrome Surgical History (Updated 05/31/19 @ 12:06 by Jeffrey Santos MD) H/O tubal ligation H/O: hysterectomy Family History Other Cancer Social History Smoking and tobacco status: current every day smoker cigarettes Packs smoked per day: 1 Years cigarettes smoked: 46 Quit status (tobacco): considering quitting Alcohol intake: never Lives independently: Yes Household members: children Current occupational status: disabled History of recent travel: No Current gender identity: Female Physical Exam Const: COMMON NORMALS: no acute distress, patient oriented x3, no limitations, healthy appearing and well nourished GENERAL APPEARANCE: cooperative, well kempt and well developed HENMT: COMMON NORMALS: normocephalic, atraumatic, external ears normal, EAC's normal and Normal external nose present HEAD & SCALP: normal to inspection, normocephalic and atraumatic FACE & SINUS: normal facial exam and face symmetric NOSE: Normal external nose present and Normal nares present EXTERNAL EAR: Yes external ears normal EXTERNAL AUDITORY CANAL: EAC's normal MOUTH: Normal oral and palatal mucosa present, lip normal and tongue normal Eye: COMMON NORMALS: Equal, round and reactive pupils present and conjunctivae normal GENERAL EYE: appearance normal, both eyes and all related structures ALIGNMENT: Yes alignment normal PERIORBITAL: periorbital findings normal EYELID: eyelids normal CONJUNCTIVA: Yes conjunctivae normal SCLERA: sclerae normal PUPIL: Yes Equal, round and reactive pupils present Neck/C-Spine: COMMON NORMALS: full ROM, no lymphadenopathy, supple, no meningeal signs and no JVD GENERAL: Yes normal visual inspection and Yes trachea midline Chest: COMMONS NORMALS: normal inspection of the chest and normal palpation of entire chest wall Resp: COMMON NORMALS: normal respiratory effort, No retractions and No use of accessory muscles EFFORT & INSPECTION: Yes able to speak in complete sentences and Yes symmetric chest movement AUSCULTATION: no crackles, no rales, no rhonchi and no wheezes Cardio: COMMON NORMALS: no JVD, regular rate, regular rhythm, S1 normal heart sound present and S2 normal heart sound present RATE: regular rate RHYTHM: regular rhythm HEART SOUNDS: S1 normal heart sound present, S2 normal heart sound present, no click, no gallops, no murmurs, no rubs and abnormal split S2 GI: COMMON NORMALS: Soft to palpation and No hepatosplenomegaly present PALPATION: Yes Soft to palpation, Yes Tenderness to palpation present (GI) (Upper abdominal area without rebound or guarding.), No Guarding due to palpation present (GI), No Rigid due to palpation, Yes No hepatosplenomegaly present, No Hernia present, No Palpable mass present and No Pulsatile mass present : COMMON NORMALS: Yes no CVA tenderness BLADDER/KIDNEY EXAM: Yes no CVA tenderness EXTERNAL FEMALE EXAM: No Hernia present Back/Pelvis: COMMON NORMALS: no CVA tenderness, thoracic and lumbar spine normal to inspection, no thoracic nor lumbar tenderness and thoraco-lumbar ROM normal Extremity: COMMON NORMALS: normal to inspection, full ROM, capillary refill normal, no joint enlargement, no clubbing, cyanosis or edema and no calf tenderness Neuro: COMMON NORMALS: patient oriented x3, CN's II-XII intact bilaterally, moves all extremities, no focal motor deficits and no sensory deficits noted MENINGEAL SIGNS: Yes no meningeal signs SPEECH: speech normal Psych: COMMON NORMALS: mental status grossly normal, Normal thought process present, cooperative, normal affect, speech normal and activity/motor behavior normal APPEARANCE: Yes well kempt SPEECH: Yes normal speech THOUGHT PROCESS: Normal thought process present Skin: COMMON NORMALS: no rashes or lesions noted, turgor normal, no jaundice, no petechiae and no mottling GENERAL SKIN EXAM: no rashes or lesions noted and turgor normal Course Vital Signs: Vital signs: Vital Signs Temperature 98.7 F 08/10/19 20:28 Pulse Rate 78 08/11/19 01:12 Respiratory Rate 18 08/11/19 01:12 Blood Pressure 98/64 08/11/19 01:12 Pulse Oximetry 96 08/11/19 01:12 MDM - Abdominal Pain MDM Narrative: Medical decision making narrative: Maura was a 49-year-old female who comes in complaining of right-sided abdominal pain primarily in the upper part of her abdomen. She did not have a fever but did have associated nausea and vomiting. Ultrasound of her gallbladder was unremarkable. I was concerned about the possibility of appendicitis and recommended a CT scan abdomen and pelvis but she refused. She instead wanted to go home and return if she got worse. I have informed her about the risks of a missed appendicitis including abdominal infection, abscess need for multiple surgeries risks of adhesions and bowel obstructions even but despite this she declined and wanted to be discharged. She did agree to return if her symptoms change or worsen. Lab Data: Attestation: I reviewed the patient's lab results. Labs: Lab Results 08/10/19 08/10/19 08/10/19 Range/Units 23:10 23:17 23:17 WBC 9.8 (4.0-10.0) 10^3/ uL RBC 4.33 (4.1-5.3) 10^6/u L Hgb 13.7 (11.5-15.3) g/dL Hct 40.0 (37.0-47.0) % MCV 92.4 (81-99) fL MCH 31.6 (28.0-34.0) pg MCHC 34.3 (30.0-36.0) g/dL RDW 13.8 (12.1-15.1) % Plt Count 286 (130-400) 10^3/c mm MPV 10.0 (7.4-10.4) fL Neut % (Auto) 73.3 % Lymph % (Auto) 20.2 % Mcduffie % (Auto) 5.0 % Eos % (Auto) 0.6 % Baso % (Auto) 0.6 % Neut # (Auto) 7.2 (1.8-7.7) 10^3/u L Lymph # (Auto) 2.0 (0.8-4.8) 10^3/u L Mcduffie # (Auto) 0.5 (0.2-0.9) 10^3/u L Eos # (Auto) 0.1 (0.0-0.8) 10^3/u L Baso # (Auto) 0.1 (0.0-0.1) 10^3/u L Nucleated RBC % (a uto) 0 % Nucleated RBCs # 0.0 /100WBC Sodium 142 (136-145) mmol/L Potassium 3.5 (3.5-5.1) mmol/L Chloride 103 (98-107) mmol/L Carbon Dioxide 23 (22-29) mmol/L Anion Gap 19.5 H (5-19) BUN 9 (6-20) mg/dL Creatinine 0.9 (0.5-0.9) mg/dL GFR Calculation 66.0 L (90-130) mL/min Glucose 138 H (65-115) mg/dL Calculated Osmolal ity 292 (285-295) mOsm/k g Calcium 10.0 (8.5-10.5) mg/dL Total Bilirubin 0.5 (0.15-1.2) mg/dL AST 20 (0-32) U/L ALT 15 (0-33) U/L Alkaline Phosphata se 65 (35-105) IU/L Troponin T Baselin e (0-10) ng/L Troponin T 120 Min arik (0-10) ng/L Delta Troponin T (0-10) ABS# Total Protein 7.1 (6.6-8.7) g/dL Albumin 4.7 (3.5-5.2) g/dL Globulin 2.4 (1.3-4.6) g/dL Lipase 17 (13-60) U/L Urine Color Yellow (Yellow) Urine Appearance Clear (CLEAR) Urine pH 6 (5-7) Ur Specific Gravit y 1.010 (1.005-1.030) Urine Protein Neg (Negative) Urine Glucose (UA) Norm (Normal) Urine Ketones Negative (Negative) Urine Blood Neg (Negative) Urine Nitrate Negative (Negative) Urine Bilirubin Neg (NEGATIVE) Urine Urobilinogen Norm (Negative) mg/dL Ur Leukocyte Queta ase Negative (Negative) Urine RBC 0-4 H (0-2) /hpf Urine WBC 0-4 H (0-5) /hpf Ur Squamous Epith Cells 0-4 H (0-5) Urine Bacteria Trace (NONE) 08/10/19 08/11/19 Range/Units 23:17 00:50 WBC (4.0-10.0) 10^3/ uL RBC (4.1-5.3) 10^6/u L Hgb (11.5-15.3) g/dL Hct (37.0-47.0) % MCV (81-99) fL MCH (28.0-34.0) pg MCHC (30.0-36.0) g/dL RDW (12.1-15.1) % Plt Count (130-400) 10^3/c mm MPV (7.4-10.4) fL Neut % (Auto) % Lymph % (Auto) % Mcduffie % (Auto) % Eos % (Auto) % Baso % (Auto) % Neut # (Auto) (1.8-7.7) 10^3/u L Lymph # (Auto) (0.8-4.8) 10^3/u L Mcduffie # (Auto) (0.2-0.9) 10^3/u L Eos # (Auto) (0.0-0.8) 10^3/u L Baso # (Auto) (0.0-0.1) 10^3/u L Nucleated RBC % (a uto) % Nucleated RBCs # /100WBC Sodium (136-145) mmol/L Potassium (3.5-5.1) mmol/L Chloride (98-107) mmol/L Carbon Dioxide (22-29) mmol/L Anion Gap (5-19) BUN (6-20) mg/dL Creatinine (0.5-0.9) mg/dL GFR Calculation (90-130) mL/min Glucose (65-115) mg/dL Calculated Osmolal ity (285-295) mOsm/k g Calcium (8.5-10.5) mg/dL Total Bilirubin (0.15-1.2) mg/dL AST (0-32) U/L ALT (0-33) U/L Alkaline Phosphata se (35-105) IU/L Troponin T Baselin e 6 (0-10) ng/L Troponin T 120 Min arik 7.05 (0-10) ng/L Delta Troponin T 1.05 (0-10) ABS# Total Protein (6.6-8.7) g/dL Albumin (3.5-5.2) g/dL Globulin (1.3-4.6) g/dL Lipase (13-60) U/L Urine Color (Yellow) Urine Appearance (CLEAR) Urine pH (5-7) Ur Specific Gravit y (1.005-1.030) Urine Protein (Negative) Urine Glucose (UA) (Normal) Urine Ketones (Negative) Urine Blood (Negative) Urine Nitrate (Negative) Urine Bilirubin (NEGATIVE) Urine Urobilinogen (Negative) mg/dL Ur Leukocyte Queta ase (Negative) Urine RBC (0-2) /hpf Urine WBC (0-5) /hpf Ur Squamous Epith Cells (0-5) Urine Bacteria (NONE) Imaging Data ^: US: My impression: Tech interpretation, see formal report -no acute findings. Liver and gallbladder normal. Pancreas not seen definitively. Common bile duct normal. Aorta and IVC within normal limits. Spleen normal. Left kidney appears negative. EKG Data ^: EKG 1: Attestation: I personally reviewed and interpreted this EKG as follows: EKG interpretation date: 08/11/19 EKG interpretation time: 00:25 Interpretation: Normal sinus rhythm at 71 beats a minute, incomplete right bundle branch block, nonspecific ST and T wave changes. Discharge Plan Discharge Patient Disposition: Left Against Medical Advice Clinical Impression: Abdominal pain Qualifiers: Abdominal location: generalized Qualified Code(s): R10.84 - Generalized abdominal pain Condition: Stable Prescriptions: No Action methotrexate sodium 25 mg/mL solution 25 mg IM .once weekly RF: 0 folic acid 1 mg tablet 1 mg PO DAILY RF: 0 Eliquis 5 mg tablet 5 mg PO BID RF: 0 diltiazem HCl [Cardizem] 30 mg tablet 30 mg PO DAILY RF: 0 sumatriptan succinate [Imitrex] 50 mg tablet 50 mg PO Q2H PRNRF: 0 nitroglycerin 0.3 mg tablet, sublingual 0.3 mg SUBLINGUAL Q5M PRNRF: 0 hydroxyzine HCl 25 mg tablet 25 mg PO DAILY PRNRF: 0 albuterol sulfate [ProAir HFA] 90 mcg/actuation HFA aerosol inhaler 1 inh INHALATION DAILY RF: 0 Symbicort 160-4.5 mcg/actuation HFA aerosol inhaler 2 puff INHALATION BID RF: 0 ropinirole 4 mg tablet 4 mg PO .qhs Qty: 30 RF: 5 quetiapine [Seroquel] 200 mg tablet 200 mg PO DAILY Qty: 30 RF: 5 fluoxetine 20 mg capsule 60 mg PO DAILY Qty: 90 RF: 5 (DME) insulin syringe-needle U-100 [TRUEplus Insulin] 1 mL 30 gauge x 5/16 syringe See Rx Instructions .ROUTE .MEDSUPPLY Qty: 100 RF: 2 Zofran 4 mg tablet 4 mg PO DAILY Qty: 14 RF: 0 Pending RF: 0 Discharge Orders: Discharge Order (Routine); Ordered 08/11/19 Ordered By: Cony Sampson Referrals: Ayan Jay MD [Primary Care Provider] - 1-3 days Discharge Diet: Advance as tolerated Discharge Activity: Increase activity as tolerated Patient Instructions: Abdominal Pain (ED) Activity Restrictions/Additional Instructions: Please return to the ER immediately for any of the signs or symptoms listed on your discharge instruction sheets, worsening/changing of your symptoms, you are not getting better as quickly as expected, or for ANY other cause or concerns. You have been offered further evaluation and care here including CT scan abdomen pelvis to rule out things such as bowel obstruction, appendicitis and other even life-threatening causes for your pain. You have refused this test and you put yourself at increased risk of severe abdominal infection and even by doing so. If you change your mind, your symptoms worsen, you develop a fever, you began to vomit, your colostomy gets to have decreased output or you simply change your mind you are more than welcome to return at any time for further evaluation and care. Discharge Date/Time: 08/11/19 01:20 Coding Level of Care Code ED Apron Operator for Vicente Fwd Exam Comprehensive
--- NOTE | 2019-08-10 23:09 | US_ITS ---
WS: [id number] Complete ABDOMINAL ULTRASOUND HISTORY: Abdominal Pain COMPARISON: 11/18/2018 Liver: 16.3 cm in length. Liver is top normal size. No mass or bile duct dilatation. Gallbladder: Normally distended with no gallstones, wall thickening or pericholecystic fluid. Gallbladder wall thickness: 0.1 cm. Pancreas: Pancreas is obscured by bowel gas. CBD: 0.5 cm. Right kidney: 10.3 cm x 5.1 cm x 4.3 cm. No mass, cortical thickening or hydronephrosis. Left kidney: 9.9 cm x 6.3 cm x 4.9 cm. No mass, cortical thickening or hydronephrosis. Spleen: Normal size and echogenicity. Abdominal aorta and IVC are within normal limits. No ascites. US/US abdomen complete* [id number] IMPRESSION: 1. Unremarkable complete abdominal ultrasound. 2. Normal gallbladder. 3. Pancreas poorly visualized.
[2019-08-10 23:22] VITALS: BP 98/62; PULSE 72; RESP 16; O2SAT 97
[2019-08-10] MEDS: ondansetron 2 mg/ML SDV 2 mL 4 MG IVP (23:27)
[2019-08-10] MEDS: sodium chloride 0.9% 1,000 ML 100 ML IV (23:27)
[2019-08-10 23:28] VITALS: RESP 18; O2SAT 99
[2019-08-10] MEDS: morphine 4 mg/mL SDV 1 mL IVP (23:28)
[2019-08-10 23:30] LABS: Basophils # 0.1 10^3/uL (0.0-0.1); Basophils % 0.6 %; Eosinophils # 0.1 10^3/uL (0.0-0.8); Eosinophils % 0.6 %; Hemoglobin 13.7 g/dL (11.5-15.3); Lymphocytes % 20.2 %; Mean Corpuscular HGB Conc 34.3 g/dL (30.0-36.0); Mean Corpuscular Hemoglobin 31.6 pg (28.0-34.0); Mean Corpuscular Volume 92.4 fL (81-99); Monocytes # 0.5 10^3/uL (0.2-0.9); Neutrophils # 7.2 10^3/uL (1.8-7.7); Neutrophils % 73.3 %; Nucleated Red Blood Cells % 0 %; Platelet Count 286 10^3/cmm (130-400); Red Blood Count 4.33 10^6/uL (4.1-5.3); Red Cell Distribution Width 13.8 % (12.1-15.1); White Blood Count 9.8 10^3/uL (4.0-10.0)
[2019-08-10 23:31] VITALS: BP 111/65; PULSE 75; RESP 16; O2SAT 96
[2019-08-10 23:36] LABS: Alanine Aminotransferase 15 U/L (0-33); Albumin Level 4.7 g/dL (3.5-5.2); Alkaline Phosphatase 65 IU/L (35-105); Anion Gap 19.5 (5-19); Aspartate Amino Transferase 20 U/L (0-32); Blood Urea Nitrogen 9 mg/dL (6-20); Carbon Dioxide 23 mmol/L (22-29); Chloride 103 mmol/L (98-107); Globulin 2.4 g/dL (1.3-4.6); Glucose 138 mg/dL (65-115); Lipase 17 U/L (13-60); Osmolality Calculated 292 mOsm/kg (285-295); Potassium 3.5 mmol/L (3.5-5.1); Sodium 142 mmol/L (136-145); Total Bilirubin 0.5 mg/dL (0.15-1.2); Total Protein 7.1 g/dL (6.6-8.7)
[2019-08-10 23:38] LABS: Troponin(5th) Baseline 6 ng/L (0-10)
[2019-08-11 00:01] VITALS: BP 122/69; PULSE 71; RESP 16; O2SAT 98
[2019-08-11 00:03] LABS: Urine Appearance Clear (CLEAR); Urine Color Yellow (Yellow); pH Urine 6 (5-7)
[2019-08-11 00:04] LABS: Bacteria Urine TRACE; Bilirubin Urine Neg (NEGATIVE); Blood Urine Neg (Negative); Glucose Urine UA Norm (Normal); Ketones Urine Negative (Negative); Leukocyte Esterase Urine Negative (Negative); Nitrate Urine Negative (Negative); Protein Urine Neg (Negative); RBC Urine 0-4 /hpf (0-2); Squamous Epithelial Cell Urine 0-4 (0-5); Urobilinogen Urine Norm (Negative); WBC Urine 0-4 /hpf (0-5)
[2019-08-11 00:37] VITALS: RESP 18; O2SAT 98
[2019-08-11] MEDS: morphine 4 mg/mL SDV 1 mL IVP (00:37)
[2019-08-11 01:12] VITALS: BP 98/64; PULSE 78; RESP 18; O2SAT 96
[2019-08-11 01:52] LABS: Troponin 5 2HR 7.05 ng/L (0-10); Troponin 5 2HR Delta 1.05 ABS# (0-10)
--- NOTE | 2019-08-11 04:56 | ECG_ITS ---
Measurements Intervals [place] Rate: 71 P: 74 IL: 180 QRS: 68 QRSD: 99 T: 65 QT: 440 QTc: 481 SINUS RHYTHM POSSIBLE RIGHT VENTRICULAR CONDUCTION DELAY [RSR (QR) IN V1/V2] Compared to ECG 11/18/2018 18:16:09 Sinus bradycardia no longer present Electronically Signed On 08-12-2019 15:15:[address] M.D. [email or web address]
== END 2019-08-11 01:20 | disposition left against medical advice (07) ==
PROVIDERS: Emergency Provider Emergency Medicine; Family Provider Family Medicine; PCP Family Medicine
DX: R10.84 Generalized abdominal pain (principal); Z53.21 Procedure and treatment not carried out due to patient leaving prior to being seen by health care provider; Z79.01 Long term (current) use of anticoagulants; F17.210 Nicotine dependence, cigarettes, uncomplicated
CPT/HCPCS: 12345; 36415; 76700; 80053; 81001; 83690; 84484; 85025; 93005; 96361; 96374; 96375; 96376; 99283; 99284; J2270; J2405; J7030

== ENCOUNTER → 2019-08-16 07:24 | Outpatient (BNVA) | payer MEDICARE, MEDICAID, SELFPAY | PROVIDERS: Family Provider Family Medicine; PCP Family Medicine; Visit Provider Psychiatry & Neurology Psychiatry | DX: F33.0 Major depressive disorder, recurrent, mild (principal); F43.12 Post-traumatic stress disorder, chronic; F10.21 Alcohol dependence, in remission; F15.21 Other stimulant dependence, in remission; F14.21 Cocaine dependence, in remission; G47.33 Obstructive sleep apnea (adult) (pediatric); G25.81 Restless legs syndrome | CPT/HCPCS: 99213 ==

== ENCOUNTER 2019-08-26 19:09 | Emergency (ER) | payer MEDICARE, MEDICAID, SELFPAY ==
[2019-08-26 19:19] VITALS: BP 105/62; PULSE 78; RESP 16; TEMP 36.7; O2SAT 97; BMI 29.3
[2019-08-26 21:08] VITALS: BP 114/53; PULSE 77; RESP 18; O2SAT 96
[2019-08-26] MEDS: doxycycline 100 mg Tablet PO (21:54)
[2019-08-26] MEDS: dexamethasone 4 mg Tablet 10 MG PO (21:54)
[2019-08-26 22:00] VITALS: BP 116/65; PULSE 80; RESP 16; O2SAT 98
--- NOTE | 2019-08-27 17:45 | ED_ITS ---
HPI - Skin/Abscess/Foreign Bdy General: Chief complaint: Skin/Abscess/Foreign Body Stated complaint: blisters Time Seen by Provider: 08/26/19 21:11 History of Present Illness: HPI narrative: 49-year-old lady with a history of colostomy. She is noticed pain, redness, and some drainage from the inferior portion of her umbilicus, near the edge of her wafer for her colostomy. It is making the bandage difficult to adhere. It is painful. She has not had fever. It appears to be spreading. MD complaint: rash Tetanus up to date: yes Severity: moderate Quality: burning Pain Consistency: constant Relieving factors: none Exacerbating factors: movement Associated symptoms: Deny fever(s), short of breath or vomiting Review of Systems Const: Denies: fever(s) Card: Denies: chest pain, palpitations or irregular heart rhythm Resp: Denies: dyspnea, productive cough, non-productive cough or wheezing GI: Denies: vomiting : Denies: dysuria or hematuria Musc: Denies: neck pain Skin/Breast: Reports: rash and erythema; Denies: pruritus Neuro: Denies: headache(s), dizziness or vertigo Psych: Denies: anxiety PFSH ED PFSH: Medical History (Updated 08/26/19 @ 21:50 by Cesar Miramontes DO) Alcohol dependence, in remission Chronic post-traumatic stress disorder CKD (chronic kidney disease) Cocaine dependence, in remission Colostomy in place Immunosuppression Obstructive sleep apnea Osteoarthritis of knees, bilateral Other stimulant dependence, in remission Psoriasis Psoriatic arthritis Restless leg syndrome Surgical History (Updated 05/31/19 @ 12:06 by Jeffrey Santos MD) H/O tubal ligation H/O: hysterectomy Family History Other Cancer Social History Smoking and tobacco status: current every day smoker cigarettes Packs smoked per day: 1 Years cigarettes smoked: 46 Quit status (tobacco): considering quitting Alcohol intake: never Lives independently: Yes Household members: children Current occupational status: disabled History of recent travel: No Current gender identity: Female Physical Exam Const: GENERAL APPEARANCE: well developed ORIENTATION/CONSCIOUSNESS: Yes oriented to person, Yes oriented to place and Yes oriented to time HENMT: COMMON NORMALS: normocephalic HEAD & SCALP: normocephalic FACE & SINUS: normal facial exam NOSE: No nasal discharge present MOUTH: tongue normal Eye: COMMON NORMALS: Equal, round and reactive pupils present, EOMs intact bilaterally and conjunctivae normal EYELID: eyelids normal CONJUNCTIVA: Yes conjunctivae normal PUPIL: Yes Equal, round and reactive pupils present Neck/C-Spine: COMMON NORMALS: full ROM GENERAL: No tracheal deviation CERVICAL SPINE: Yes normal cervical lordosis and No Cervical spine tenderness Chest: COMMONS NORMALS: normal inspection of the chest CHEST: No tenderness Resp: COMMON NORMALS: clear to auscultation bilaterally EFFORT & INSPECTION: No tachypneic, No respiratory distress, No retractions, No uses accessory muscles and No tracheal deviation AUSCULTATION: clear to auscultation bilaterally, no rhonchi, no wheezes and lung sounds not diminished Cardio: COMMON NORMALS: regular rate and regular rhythm RATE: regular rate RHYTHM: regular rhythm HEART SOUNDS: no murmurs PERIPHERAL PULSES: radial pulses present GI: INSPECTION: No abdominal distension AUSCULTATION: No Hyperactive bowel sounds present and No Hypoactive bowel sounds present PALPATION: No Guarding due to palpation present (GI) and No Rigid due to palpation PERCUSSION: no dullness to percussion and no tympanic to percussion Neuro: SENSORIUM/ORIENTATION: Yes oriented to person, Yes oriented to place and Yes oriented to time Psych: COMMON NORMALS: mental status grossly normal Skin: COMMON NORMALS: no rashes or lesions noted NARRATIVE SKIN EXAM: Small area of induration with some drainage at the inferior portion of the umbilicus and just inferior to that. There is no fluctuance no palpable drainable abscess. No streaking or lymphangitis signs. GENERAL SKIN EXAM: no rashes or lesions noted Course Vital Signs: Vital signs: Vital Signs Temperature 98.0 F 08/26/19 19:19 Pulse Rate 80 08/26/19 22:00 Respiratory Rate 16 08/26/19 22:00 Blood Pressure 116/65 08/26/19 22:00 Pulse Oximetry 98 08/26/19 22:00 MDM - Skin/Abscess/Foreign Bdy MDM Narrative: Medical decision making narrative: No palpable drainable abscess. She will be placed on antibiotics. She was told to use a paced as a barrier cream around the site where there is drainage to help her wafer seal. Discharge Plan Discharge Patient Disposition: Home, Self-Care Clinical Impression: Cellulitis Qualifiers: Site of cellulitis of trunk: abdominal wall Condition: Stable Prescriptions: New doxycycline hyclate 100 mg capsule 100 mg PO BID 14 Days Qty: 28 RF: 0 No Action methotrexate sodium 25 mg/mL solution 25 mg IM .once weekly RF: 0 folic acid 1 mg tablet 1 mg PO DAILY RF: 0 Eliquis 5 mg tablet 5 mg PO BID RF: 0 diltiazem HCl [Cardizem] 30 mg tablet 30 mg PO DAILY RF: 0 sumatriptan succinate [Imitrex] 50 mg tablet 50 mg PO Q2H PRNRF: 0 nitroglycerin 0.3 mg tablet, sublingual 0.3 mg SUBLINGUAL Q5M PRNRF: 0 hydroxyzine HCl 25 mg tablet 25 mg PO DAILY PRNRF: 0 albuterol sulfate [ProAir HFA] 90 mcg/actuation HFA aerosol inhaler 1 inh INHALATION DAILY RF: 0 Symbicort 160-4.5 mcg/actuation HFA aerosol inhaler 2 puff INHALATION BID RF: 0 ropinirole 4 mg tablet 4 mg PO .qhs Qty: 30 RF: 5 quetiapine [Seroquel] 200 mg tablet 200 mg PO DAILY Qty: 30 RF: 5 fluoxetine 20 mg capsule 60 mg PO DAILY Qty: 90 RF: 5 (DME) insulin syringe-needle U-100 [TRUEplus Insulin] 1 mL 30 gauge x 5/16 syringe See Rx Instructions .ROUTE .MEDSUPPLY Qty: 100 RF: 2 Zofran 4 mg tablet 4 mg PO DAILY Qty: 14 RF: 0 Pending RF: 0 Discharge Orders: Discharge Order (Routine); Ordered 08/26/19 Ordered By: Cesar Miramontes Referrals: Ayan Jay MD [Primary Care Provider] - 4-7 days Discharge Diet: Usual diet Discharge Activity: Resume usual activity Patient Instructions: Cellulitis (ED) Activity Restrictions/Additional Instructions: Return for spreading redness, drainage, tenderness despite 3 doses of antibiotics. Return for fever greater than 100. Paste may work better as a barrier in that area for your colostomy for the time being. We think this would work better than gauze. Discharge Date/Time: 08/26/19 22:01 Coding Level of Care Code ED [employer] Mill Operator for Vicente Tobin
== END 2019-08-26 22:01 | disposition home or self-care (01) ==
PROVIDERS: Emergency Provider Emergency Medicine; PCP Family Medicine
DX: L03.311 Cellulitis of abdominal wall (principal); Z79.01 Long term (current) use of anticoagulants; Z79.4 Long term (current) use of insulin; F17.210 Nicotine dependence, cigarettes, uncomplicated
CPT/HCPCS: 12345; 99281; 99283; J8540

== ENCOUNTER → 2019-09-08 09:34 | Outpatient (BNVA) | payer MEDICARE, MEDICAID, SELFPAY | PROVIDERS: PCP Family Medicine; Visit Provider Psychiatry & Neurology Psychiatry | DX: F43.12 Post-traumatic stress disorder, chronic (principal); F33.0 Major depressive disorder, recurrent, mild | CPT/HCPCS: 99212 ==

== ENCOUNTER 2019-09-14 09:38 | Outpatient (CLI) | payer MEDICARE, MEDICAID, SELFPAY ==
--- NOTE | 2019-09-14 09:53 | CT_ITS ---
WS: [id number] CT scan of the abdomen and pelvis with Oral and IV contrast. Additional two-dimensional coronal and s agittal reconstruction was performed. 09/14/2019 Clinical Data: ACUTE COLITIS Comparison: CT abdomen and pelvis, 03/11/2019. DLP: 1121.[address] scans at [facility] use at least one of these dose optimization techniques: automat ed exposure control; mA and/or kV adjustment per patient size (includes targeted exams where dose is matched to clinical indication); or iterative reconstruction. Findings: The lower lungs show no nodules, masses or effusions. The liver, gallbladder, spleen, adrenal glands and pancreas are normal. The kidneys show equal bilateral contrast excretion with no cyst or masses. The abdominal aorta is normal in size. No appendicitis or diverticulitis is seen. Oral contrast is in the stomach and small bowel and there is no bowel dilatation. No abscess, adenopathy, ascites, mass, obstruction or free air is seen. The p atient has had distal colon resection and there is a left lower quadrant osteotomy. No osteotomy abno rmalities are seen. There is fecal material within the colon. The bladder is unremarkable. No uterus is seen. No inguinal hernia is seen. The bones of the lower thorax, lumbar spine, pelvis, and hips are normal. CT/CT abdomen pelvis w con* [id number] Impression: 1. No change in left lower quadrant osteotomy. 2. Negative for acute intra-abdominal or pelvic abnormalities. 3. Resection of distal colon unchanged.
[2019-09-14] MEDS: iohexol 300 mg/mL 50 mL Btl PO (09:55)
[2019-09-14] MEDS: iohexol 300 mg/mL 100 mL Btl IV (11:25)
== END 2019-09-14 09:39 | disposition home or self-care (01) ==
LOC: RADWPI 09:44
PROVIDERS: Family Provider Family Medicine; PCP Family Medicine; Visit Provider Family Medicine
DX: K52.9 Noninfective gastroenteritis and colitis, unspecified (principal)
CPT/HCPCS: 74177; Q9967

== ENCOUNTER 2019-09-14 20:00 | Outpatient (CLI) | payer MEDICARE, MEDICAID, SELFPAY | END 2019-09-14 20:01 | disposition home or self-care (01) | LOC: SLEEP 09-15 09:52 | PROVIDERS: Family Provider Family Medicine; PCP Family Medicine; Visit Provider Psychiatry & Neurology Psychiatry | DX: G47.33 Obstructive sleep apnea (adult) (pediatric) (principal) | CPT/HCPCS: 95811 ==

== ENCOUNTER 2019-09-18 22:34 | Emergency (ER) | payer MEDICARE, MEDICAID, SELFPAY ==
[2019-09-18 22:39] VITALS: BP 126/53; PULSE 92; RESP 12; O2SAT 94; BMI 29.3
--- NOTE | 2019-09-18 22:42 | USCV_ITS ---
Maura Hermosillo Age: 49 Gender: F : 1970 Exam Date: 09/18/2019 23:04 Ordering Phys: Samuel Monteiro MD Technologist: Amrit Villarreal Exam Location: [facility] – [place] Indication: LT LEG PAIN AND EDEMA HISTORY: Lower extremity pain. PROCEDURES: Venous duplex imaging was performed in only the left lower extremity. The following venous structures were evaluated: common femoral vein, profunda vein, proximal portion of the greater saphenous vein, superficial femoral vein, and the popliteal vein. FINDINGS: Normal 2-D Doppler and augmentation and compressibility throughout the lower extremity venous structures. Additional imaging through the proximal calf veins also reveals no thrombus. Limited evaluation of the greater saphenous vein is patent with no thrombus. CONCLUSIONS No DVT left lower extremity. Dr. Ivette Myers DO (Electronically Signed) Final Date: 19 September 2019 08:03 S
--- NOTE | 2019-09-18 23:03 | ED_ITS ---
HPI - Extremity Problem General: Chief complaint: Extremity Problem,Nontraumatic Stated complaint: LEFT LEG PAIN Time Seen by Provider: 09/18/19 22:39 Source: patient and EMS Mode of arrival: EMS Limitations: no limitations History of Present Illness: HPI Narrative: 49-year-old female who states she noticed a contusion to her left thigh is unsure what it happened. States is qu ite tender to touch and was concerned she may have a blood clot. She denies any chest pain or shortness of breath. She states that her pain is a 2 out of 10. Denies any worsening or improving factors at this time. Complaint: extremity pain Associated symptoms: Deny chest pain, fever(s) or rash Review of Systems Const: Denies: fever(s), chills, body aches or change in appetite Eyes: Denies: blurry vision or eye discomfort ENMT: Denies: throat pain or dental pain Card: Denies: chest pain Resp: Denies: dyspnea GI: Denies: abdominal pain, nausea, vomiting or diarrhea : Denies: dysuria Musc: Denies: neck pain or back pain Skin/Breast: Denies: rash Neuro: Denies: headache(s) Psych: Denies: depression Alcon/Lymph: Denies: easy bruising All/Imm: Denies: urticaria PFSH ED PFSH: Medical History Alcohol dependence, in remission Chronic post-traumatic stress disorder CKD (chronic kidney disease) Cocaine dependence, in remission Colostomy in place Immunosuppression Obstructive sleep apnea Osteoarthritis of knees, bilateral Other stimulant dependence, in remission Psoriasis Psoriatic arthritis Restless leg syndrome Surgical History H/O tubal ligation H/O: hysterectomy Family History Other Cancer Social History Smoking and tobacco status: current every day smoker cigarettes Packs smoked per day: 1 Years cigarettes smoked: 46 Quit status (tobacco): considering quitting Alcohol intake: current Alcohol intake frequency: holidays/special occasions only Lives independently: Yes Household members: none Marital status: Legally Current occupational status: disabled History of recent travel: No Current gender identity: Female Physical Exam Const: COMMON NORMALS: no acute distress, patient oriented x3 and healthy appearing HENMT: COMMON NORMALS: normocephalic and atraumatic HEAD & SCALP: normocephalic and atraumatic Eye: COMMON NORMALS: Equal, round and reactive pupils present and EOMs intact bilaterally PUPIL: Yes Equal, round and reactive pupils present Neck/C-Spine: COMMON NORMALS: full ROM and supple Chest: COMMONS NORMALS: normal inspection of the chest and normal palpation of entire chest wall Resp: COMMON NORMALS: normal respiratory effort, No retractions, No use of accessory muscles and clear to auscultation bilaterally AUSCULTATION: clear to auscultation bilaterally Cardio: COMMON NORMALS: regular rate, regular rhythm and No murmurs present (Cardio) RATE: regular rate RHYTHM: regular rhythm GI: COMMON NORMALS: Normal to inspection, nondistended, normoactive bowel sounds present, Soft to palpation, non-tender and no masses PALPATION: Yes Soft to palpation Extremity: COMMON NORMALS: normal to inspection and full ROM NARRATIVE EXTREMITY EXAM: Contusion to left upper leg with tenderness Neuro: COMMON NORMALS: patient oriented x3, moves all extremities and no focal motor deficits Psych: COMMON NORMALS: mental status grossly normal, Normal thought process present and cooperative THOUGHT PROCESS: Normal thought process present Skin: COMMON NORMALS: no rashes or lesions noted and no wounds GENERAL SKIN EXAM: no rashes or lesions noted Course Vital Signs: Vital signs: Vital Signs Temperature 98.2 F 09/18/19 23:15 Pulse Rate 80 09/18/19 23:15 Respiratory Rate 16 09/18/19 23:15 Blood Pressure 116/70 09/18/19 23:15 Pulse Oximetry 99 09/18/19 23:15 MDM - Extremity (Nontraumatic) MDM Narrative: Medical decision making narrative: Maura presents here with varicose vein to left leg. Patient has no DVT. Patient is stable for discharge as of today warm compresses. She is return if worsening. Imaging Data^: US: Attestation: I personally reviewed and interpreted this imaging study as follows: My impression: no dvt, vericose veins Discharge Plan Discharge Patient Disposition: Home, Self-Care Clinical Impression: Varicose vein of leg Qualifiers: Varicose vein complication: unspecified Laterality: left Qualified Code(s): I83.92 - Asymptomatic varicose veins of left lower extremity Condition: Stable Prescriptions: No Action methotrexate sodium 25 mg/mL solution 25 mg IM .once weekly RF: 0 folic acid 1 mg tablet 1 mg PO DAILY RF: 0 Eliquis 5 mg tablet 5 mg PO BID RF: 0 diltiazem HCl [Cardizem] 30 mg tablet 30 mg PO DAILY RF: 0 sumatriptan succinate [Imitrex] 50 mg tablet 50 mg PO Q2H PRNRF: 0 nitroglycerin 0.3 mg tablet, sublingual 0.3 mg SUBLINGUAL Q5M PRNRF: 0 albuterol sulfate [ProAir HFA] 90 mcg/actuation HFA aerosol inhaler 1 inh INHALATION DAILY RF: 0 Anoro Ellipta 62.5-25 mcg/actuation blister with device 1 inh INHALATION Q24H 30 Days Qty: 60 RF: 3 ropinirole 4 mg tablet 4 mg PO .qhs Qty: 30 RF: 5 quetiapine [Seroquel] 200 mg tablet 200 mg PO DAILY Qty: 30 RF: 5 fluoxetine 20 mg capsule 60 mg PO DAILY Qty: 90 RF: 5 (DME) insulin syringe-needle U-100 [TRUEplus Insulin] 1 mL 30 gauge x 5/16 syringe See Rx Instructions .ROUTE .MEDSUPPLY Qty: 100 RF: 2 hydroxyzine HCl 25 mg tablet 25 mg PO DAILY PRN (Reason: anxiety) Qty: 30 RF: 2 Zofran 4 mg tablet 4 mg PO DAILY Qty: 14 RF: 0 Anoro Ellipta 62.5-25 mcg/actuation Blister With Device 1 inh INHALATION Q24H RF: 0 Discharge Orders: Discharge Order (Routine); Ordered 09/18/19 Ordered By: Samuel Monteiro Referrals: Ayan Jay MD [Primary Care Provider] - 1-3 days Discharge Diet: Advance as tolerated Discharge Activity: Resume usual activity Patient Instructions: Varicose Veins (ED) Coding Level of Care Code ED [employer] Marker for Germang Fwd Exam Comprehensive
[2019-09-18 23:15] VITALS: BP 116/70; PULSE 80; RESP 16; TEMP 36.8; O2SAT 99
== END 2019-09-18 23:26 | disposition home or self-care (01) ==
PROVIDERS: Emergency Provider Emergency Medicine; PCP Family Medicine
DX: I83.92 Asymptomatic varicose veins of left lower extremity (principal); Z79.01 Long term (current) use of anticoagulants; F17.210 Nicotine dependence, cigarettes, uncomplicated
CPT/HCPCS: 12345; 93971; 99281; 99282

== ENCOUNTER → 2019-09-22 09:53 | Outpatient (BNVA) | payer MEDICARE, MEDICAID, SELFPAY | PROVIDERS: Family Provider Family Medicine; PCP Family Medicine; Visit Provider Internal Medicine | DX: L40.50 Arthropathic psoriasis, unspecified (principal); R25.2 Cramp and spasm; F17.210 Nicotine dependence, cigarettes, uncomplicated | CPT/HCPCS: 36415; 80053; 83735; 84100; 84443; 85025; 85651; 86140; 99213 ==

== ENCOUNTER → 2019-10-11 07:47 | Outpatient (BNVA) | payer MEDICARE, MEDICAID, SELFPAY | PROVIDERS: Family Provider Family Medicine; PCP Family Medicine; Referring Provider Family Medicine; Visit Provider Specialist | DX: M79.604 Pain in right leg (principal); M79.605 Pain in left leg; G62.9 Polyneuropathy, unspecified | CPT/HCPCS: 95909 ==

== ENCOUNTER 2019-10-26 07:33 | Outpatient (CLI) | payer MEDICARE, MEDICAID, SELFPAY ==
--- NOTE | 2019-10-26 07:38 | MR_ITS ---
WS: [id number] MRI HEAD WITH CONTRAST TECHNIQUE: Sagittal T1, T2 axial, T2 axial FLAIR, axial susceptibility weighted imaging, axial diffus ion weighted images, and coronal T2 images were obtained. Pre and post-T1 axial and post T1 coronal i mages. ADC and FSPGR images. CLINICAL INFORMATION: MILD COGNITIVE IMPAIRMENT COMPARISON: CT 6 ,018 FINDINGS: No evidence of restricted diffusion to suggest acute ischemia. Ventricular system and basal cisterns are patent. No suspicious intracranial signal abnormalities. Normal maurer-white differentiation. Lisa l posterior fossa. Normal vascular flow voids at the skull base. No extra-axial fluid collections. Pa ranasal sinuses are well aerated. Mastoid air cells well aerated. Incidental slightly low-lying cereb ellar tonsils. Normal fourth ventricle. Temporal lobes and hippocampal formations are normal in appearance. No asymmetric hippocampal atrophy . Incidental right choroidal fissure cyst. No abnormal gadolinium enhancement. Normal optic chiasm an d pituitary infundibulum. Normal dural venous sinuses. Cavernous sinuses and Meckel's cave are normal . MR/MR head wo/w con [id number] IMPRESSION: 1. No evidence of restricted diffusion to suggest acute ischemia. 2. No suspicious intracranial signal abnormalities. 3. No abnormal gadolinium enhancement. 4. Normal optic chiasm and pituitary infundibulum. 5. No hemosiderin on the susceptibility weighted images. 6. Temporal lobes and hippocampal formations are normal in appearance.
== END 2019-10-26 07:34 | disposition home or self-care (01) ==
LOC: RADSHAW 07:37
PROVIDERS: PCP Family Medicine; Visit Provider Physician Assistant
DX: G31.84 Mild cognitive impairment of uncertain or unknown etiology (principal)
CPT/HCPCS: 70553; A9579

== ENCOUNTER → 2019-12-07 11:40 | Outpatient (BNVA) | payer MEDICARE, MEDICAID, SELFPAY | PROVIDERS: PCP Family Medicine; Referring Provider Internal Medicine; Visit Provider Specialist | DX: R25.1 Tremor, unspecified (principal); G62.9 Polyneuropathy, unspecified; L40.50 Arthropathic psoriasis, unspecified; R25.2 Cramp and spasm; Z79.899 Other long term (current) drug therapy; F15.21 Other stimulant dependence, in remission; F10.21 Alcohol dependence, in remission; F17.210 Nicotine dependence, cigarettes, uncomplicated | CPT/HCPCS: 99204 ==

== ENCOUNTER → 2019-12-11 10:43 | Outpatient (BNVA) | payer MEDICARE, MEDICAID, SELFPAY | PROVIDERS: PCP Family Medicine; Visit Provider Internal Medicine | DX: L40.50 Arthropathic psoriasis, unspecified (principal); M70.60 Trochanteric bursitis, unspecified hip; Z23 Encounter for immunization; G62.9 Polyneuropathy, unspecified; L40.8 Other psoriasis; F17.210 Nicotine dependence, cigarettes, uncomplicated; Y93.9 Activity, unspecified | CPT/HCPCS: 20610; 80053; 85025; 90471; 90686; 99214; J3301 ==

== ENCOUNTER → 2019-12-20 07:30 | Outpatient (BNVA) | payer MEDICARE, MEDICAID, SELFPAY | PROVIDERS: PCP Family Medicine; Visit Provider Psychiatry & Neurology Psychiatry | DX: F43.12 Post-traumatic stress disorder, chronic (principal); F33.0 Major depressive disorder, recurrent, mild; G47.33 Obstructive sleep apnea (adult) (pediatric); G25.81 Restless legs syndrome; F14.21 Cocaine dependence, in remission; F15.21 Other stimulant dependence, in remission; F10.21 Alcohol dependence, in remission; F17.200 Nicotine dependence, unspecified, uncomplicated | CPT/HCPCS: 99214 ==

== ENCOUNTER → 2019-12-26 09:22 | Outpatient (BNVA) | payer MEDICARE, MEDICAID, SELFPAY | PROVIDERS: PCP Family Medicine; Referring Provider Specialist; Visit Provider Anesthesiology Pain Medicine | DX: M54.9 Dorsalgia, unspecified (principal); M17.0 Bilateral primary osteoarthritis of knee; G62.9 Polyneuropathy, unspecified; G25.81 Restless legs syndrome; F10.21 Alcohol dependence, in remission; F15.21 Other stimulant dependence, in remission; F14.21 Cocaine dependence, in remission; F33.0 Major depressive disorder, recurrent, mild; F43.12 Post-traumatic stress disorder, chronic; F17.210 Nicotine dependence, cigarettes, uncomplicated; Z79.899 Other long term (current) drug therapy | CPT/HCPCS: 99205 ==

== ENCOUNTER → 2020-01-09 13:49 | Outpatient (BNVA) | payer MEDICARE, MEDICAID, SELFPAY | PROVIDERS: PCP Family Medicine; Visit Provider Internal Medicine | DX: M17.0 Bilateral primary osteoarthritis of knee (principal); Z79.899 Other long term (current) drug therapy; L40.50 Arthropathic psoriasis, unspecified; F17.210 Nicotine dependence, cigarettes, uncomplicated | CPT/HCPCS: 99213; 99214 ==

== ENCOUNTER 2020-01-19 12:38 | Emergency (ER) | payer MEDICARE, MEDICAID, SELFPAY ==
[2020-01-19 12:47] VITALS: BP 124/80; PULSE 85; RESP 18; TEMP 36.3; O2SAT 95; BMI 31.1
[2020-01-19] MEDS: tetanus-dipt-pertussis 0.5 mL SDV IM (14:37)
--- NOTE | 2020-01-19 14:54 | W.ED.WOUNDLC ---
HPI - Wound/Laceration General: Chief Complaint: Wound/Laceration Stated Complaint: L HAND INJURY Time Seen by Provider: 01/19/20 13:11 History of Present Illness: HPI narrative: 49-year-old female patient presents to the emergency room with left index finger laceration. She reports was peeling potatoes at the time the knife cut her finger. She reports a clean knife was used. Reports on Eliquis, lots of bleeding at time of the cut. Bleeding is now controlled. Onset (ago): minute(s) (30) Location: other (left index finger) Place: home Patient tetanus UTD: No Context: accidental Associated symptoms: Reports no associated symptoms; Denies chills, fever(s), nausea or vomiting Treatments prior to arrival: bandage Review of Systems General: Reports: 10 or more systems reviewed and unremarkable except in HPI and below Const: Denies: fever(s), chills or diaphoresis Eyes: Denies: blurry vision or eye redness ENMT: Denies: throat pain, dental pain or disequilibrium Card: Denies: chest pain, palpitations or irregular heart rhythm Resp: Denies: dyspnea, productive cough, non-productive cough or wheezing GI: Denies: abdominal pain, nausea or vomiting : Denies: difficulty voiding or dysuria Musc: Denies: back pain Skin/Breast: Reports: skin tenderness; Denies: rash or pruritus Neuro: Denies: headache(s), weakness in extremities or behavioral changes Psych: Denies: anxiety or depression Alcon/Lymph: Denies: easy bruising PFSH ED PFSH: Medical History Alcohol dependence, in remission Chronic post-traumatic stress disorder CKD (chronic kidney disease) Cocaine dependence, in remission Colostomy in place Immunosuppression Obstructive sleep apnea Osteoarthritis of knees, bilateral Other stimulant dependence, in remission Psoriasis Psoriatic arthritis Restless leg syndrome Spasms of the hands or feet Surgical History H/O tubal ligation H/O: hysterectomy Family History Other Cancer Social History Smoking and tobacco status: current every day smoker cigarettes Years cigarettes smoked: 46 [ Other cigarette details: Hx of 1PPD x 46 Years ] Quit status (tobacco): considering quitting Alcohol intake: current Alcohol intake frequency: holidays/special occasions only Lives independently: Yes Household members: none Marital status: Legally Current occupational status: disabled History of recent travel: No Current gender identity: Female Physical Exam Const: COMMON NORMALS: no acute distress, patient oriented x3, healthy appearing and alert GENERAL APPEARANCE: cooperative, comfortable and well hydrated HENMT: COMMON NORMALS: normocephalic, Normal external nose present and moist oral mucous membranes HEAD & SCALP: normocephalic NOSE: Normal external nose present Eye: COMMON NORMALS: Equal, round and reactive pupils present and EOMs intact bilaterally GENERAL EYE: appearance normal, both eyes and all related structures PUPIL: Yes Equal, round and reactive pupils present Neck/C-Spine: COMMON NORMALS: full ROM and no lymphadenopathy GENERAL: Yes normal visual inspection and Yes trachea midline CERVICAL SPINE: Yes cervical ROM normal Lymph: LYMPHATIC: no lymphadenopathy noted Chest: COMMONS NORMALS: normal inspection of the chest Resp: COMMON NORMALS: normal respiratory effort and clear to auscultation bilaterally AUSCULTATION: clear to auscultation bilaterally Cardio: COMMON NORMALS: regular rhythm, S1 normal heart sound present and S2 normal heart sound present RHYTHM: regular rhythm HEART SOUNDS: S1 normal heart sound present and S2 normal heart sound present GI: COMMON NORMALS: Soft to palpation and non-tender INSPECTION: Yes normal to inspection PALPATION: Yes Soft to palpation : COMMON NORMALS: Yes no CVA tenderness BLADDER/KIDNEY EXAM: Yes no CVA tenderness Back/Pelvis: COMMON NORMALS: no CVA tenderness and thoracic and lumbar spine normal to inspection Extremity: COMMON NORMALS: normal to inspection and capillary refill normal GENERAL: Yes normal exam except as noted LEFT UPPER EXTREMITY: Yes hand & digits (Index finger, radial side with 1 cm laceration, involves the nailbed.) Left hand and digits: Yes ROM (Distally intact, flexion extension) and Yes neurovascular exam (Distally intact) Neuro: COMMON NORMALS: patient oriented x3 and no focal motor deficits SENSORIUM/ORIENTATION: Yes alert Psych: COMMON NORMALS: mental status grossly normal, Normal thought process present and cooperative ACTIVITY/MOTOR BEHAVIOR: Yes appropriate eye contact THOUGHT PROCESS: Normal thought process present Skin: COMMON NORMALS: no rashes or lesions noted and turgor normal GENERAL SKIN EXAM: no rashes or lesions noted and turgor normal Procedures Laceration Laceration 1: Site: upper extremity (left index finger) Side (If applicable): left Size (cm): 1 Depth: simple, single layer Pre-repair: wound explored, irrigated extensively, deep structures intact and extensive debridement Skin layer closed with: nylon Size (cm): 5-0 Number of sutures: 2 Nerve Block Nerve Block 1: Time out performed: Yes Local Anesthetic: lidocaine 1% Amount of anesthesia used (mL): 10 Side: left Nerve Blocks: digital (Index finger) Procedure Successful: Yes Patient Tolerated Procedure: well Complications: none Course Vital Signs: Vital signs: Vital Signs Temperature 97.3 F L 01/19/20 12:47 Pulse Rate 85 01/19/20 12:47 Respiratory Rate 18 01/19/20 12:47 Blood Pressure 124/80 01/19/20 12:47 Pulse Oximetry 95 01/19/20 12:47 Discharge Plan Discharge Patient Disposition: Home Clinical Impression: Laceration, Need for Tdap vaccination, Laceration of nail bed of finger Condition: Stable Prescriptions: No Action Eliquis 5 mg tablet 5 mg PO BID RF: 0 diltiazem HCl [Cardizem] 30 mg tablet 30 mg PO DAILY RF: 0 sumatriptan succinate [Imitrex] 50 mg tablet 50 mg PO Q2H PRNRF: 0 nitroglycerin 0.3 mg tablet, sublingual 0.3 mg SUBLINGUAL Q5M PRNRF: 0 quetiapine [Seroquel] 300 mg tablet 300 mg PO .qhs Qty: 30 RF: 5 ropinirole 4 mg tablet 4 mg PO .qhs Qty: 30 RF: 5 fluoxetine 20 mg capsule 60 mg PO DAILY Qty: 90 RF: 5 (DME) insulin syringe-needle U-100 [TRUEplus Insulin] 1 mL 30 gauge x 5/16 syringe See Rx Instructions .ROUTE .MEDSUPPLY Qty: 100 RF: 2 hydroxyzine HCl 25 mg tablet 25 mg PO DAILY PRN (Reason: anxiety) Qty: 30 RF: 2 methotrexate sodium 25 mg/mL solution 25 mg IM .once weekly Qty: 10 RF: 0 Enbrel 50 mg/mL (1 mL) syringe 50 mg SUBCUT .qweek Qty: 4 RF: 5 (DME) DME: [facility] See Rx Instructions .ROUTE .MEDSUPPLY Qty: 1 RF: 0 folic acid 1 mg tablet 1 mg PO DAILY Qty: 30 RF: 0 umeclidinium-vilanterol [Anoro Ellipta] 62.5-25 mcg/actuation blister with device See Rx Instructions .ROUTE .COMPLEX Qty: 60 RF: 3 Discharge Orders: Discharge Order (Routine); Ordered 01/19/20 Ordered By: Dena Miles Referrals: Ayan Jay MD [Primary Care Provider] - Discharge Diet: Usual diet Discharge Activity: Limit activity as instructed Patient Instructions: Diphtheria/Acellular Pertussis/Tetanus Booster Vaccine (Tdap) (Injection), Suture Care (ED), Laceration (ED) Activity Restrictions/Additional Instructions: Return to the emergency department if you develop increased finger pain, redness, streaking from the site or malodorous drainage Sutures out in 7 days, may go to urgent care or primary care provider Avoid submersion of the finger in water until sutures are removed, may wash with soap and water and pat dry Keep covered for 24 hours then remove, may apply dressing as needed Coding Level of Care Code ED Zone Supervisor Firearms for Chg Fwd Exam Comprehensive
== END 2020-01-19 15:20 | disposition home or self-care (01) ==
PROVIDERS: Emergency Provider Nurse Practitioner Family; PCP Family Medicine
DX: S61.311A Laceration without foreign body of left index finger with damage to nail, initial encounter (principal); Z23 Encounter for immunization; Z79.01 Long term (current) use of anticoagulants; F17.210 Nicotine dependence, cigarettes, uncomplicated; W26.0XXA Contact with knife, initial encounter
CPT/HCPCS: 12001; 12345; 90471; 90715; 99281; 99282

== ENCOUNTER → 2020-01-23 09:52 | Outpatient (BNVA) | payer MEDICARE, MEDICAID, SELFPAY | PROVIDERS: PCP Family Medicine; Visit Provider Internal Medicine | DX: L40.50 Arthropathic psoriasis, unspecified (principal); M17.0 Bilateral primary osteoarthritis of knee; F17.210 Nicotine dependence, cigarettes, uncomplicated | CPT/HCPCS: 20610; 99214; J3301 ==

== ENCOUNTER → 2020-01-26 10:57 | Outpatient (BNVA) | payer MEDICARE, MEDICAID, SELFPAY | PROVIDERS: PCP Family Medicine; Visit Provider Internal Medicine Critical Care Medicine | DX: Z20.828 Contact with and (suspected) exposure to other viral communicable diseases (principal); Z01.812 Encounter for preprocedural laboratory examination | CPT/HCPCS: 87635 ==

== ENCOUNTER 2020-01-31 12:45 | Outpatient (CLI) | payer MEDICARE, MEDICAID, SELFPAY ==
--- NOTE | 2020-01-31 13:20 | PFTS_ITS ---
Date of Study:01/31/20 Date of Dictation: MECHANICS: Forced vital capacity (FVC) is normal. Forced expiratory volume in one second (FEV1) is normal. FEV1/FVC is normal. FLOW VOLUME LOOP: Normal. LUNG VOLUMES: Not measured. The patient could not perform plethysmography. DIFFUSING CAPACITY FOR CARBON MONOXIDE: Normal. INTERPRETATION: The pulmonary function tests are normal. Lung volumes are not measured. Gas exchange (DLCO) is normal. MTDD
== END 2020-01-31 12:46 | disposition home or self-care (01) ==
LOC: RT 12:47
PROVIDERS: PCP Family Medicine; Visit Provider Internal Medicine Critical Care Medicine
DX: J42 Unspecified chronic bronchitis (principal)
CPT/HCPCS: 94010; 94729

== ENCOUNTER → 2020-02-07 07:35 | Outpatient (BNVA) | payer MEDICARE, MEDICAID, SELFPAY | PROVIDERS: PCP Family Medicine; Visit Provider Psychiatry & Neurology Psychiatry | DX: F33.40 Major depressive disorder, recurrent, in remission, unspecified (principal); F43.12 Post-traumatic stress disorder, chronic; G47.33 Obstructive sleep apnea (adult) (pediatric); G25.81 Restless legs syndrome; F14.21 Cocaine dependence, in remission; F15.21 Other stimulant dependence, in remission; F10.21 Alcohol dependence, in remission | CPT/HCPCS: 99214 ==

== ENCOUNTER 2020-02-13 13:48 | Outpatient (CLI) | payer MEDICARE, MEDICAID, SELFPAY ==
--- NOTE | 2020-02-13 13:54 | USCV_ITS ---
Maura Hermosillo Age: 50 Gender: F : 1970 Exam Date: 02/13/2020 14:24 Ordering Phys: Jeffrey Santos MD Technologist: Deepa Delacruz Exam Location: [facility] [place] Indication: PULMONARY HTN BP: 74 / 45 HR: 72 Rhythm: Sinus Technical Quality: Adequate MEASUREMENTS (Male / Female) Normal Values 2D ECHO LV Diastolic Diameter PLAX 2.1 cm 4.2 - 5.9 / 3.9 - 5.3 cm LV Systolic Diameter PLAX 1.6 cm LV Chamber Size 2.4 cm IVS Diastolic Thickness 1.5 cm 0.6 - 1.0 / 0.6 - 0.9 cm IVS Systolic Thickness 1.9 cm LVPW Diastolic Thickness 1.9 cm 0.6 - 1.0 / 0.6 - 0.9 cm LVPW Systolic Thickness 1.9 cm RV Chamber Size 2.8 cm LVOT Diameter 2.0 cm LV Ejection Fraction 2D Teich 51.1 % LV Ejection Fraction MOD 2C 66.6 % LV Ejection Fraction 2C AL 66.3 % LA Diameter 2.7 cm LA Width 3.1 cm LA Height 4.3 cm RA Width 3.1 cm RA Height 4.3 cm Aorta at Sinotubular Diameter 2.3 cm M-MODE LV Diastolic Diameter MM 4.4 cm 4.2 - 5.9 / 3.9 - 5.3 cm LV Systolic Diameter MM 2.7 cm LV Ejection Fraction MM Teich 70.5 % IVS Diastolic Thickness MM 0.9 cm 0.6 - 1.0 / 0.6 - 0.9 cm IVS Systolic Thickness MM 1.3 cm LVPW Diastolic Thickness MM 1.2 cm 0.6 - 1.0 / 0.6 - 0.9 cm LVPW Systolic Thickness MM 1.7 cm Aortic Annulus Diameter 2.9 cm LA Ao Ratio MM 1.1 MV E Point Septal Separation 0.6 cm DOPPLER AV Peak Velocity 165.0 cm/s LVOT Peak Velocity 123.0 cm/s AV Area Cont Eq vti 2.4 cm squared AV Area Cont Eq pk 2.4 cm squared MV Area PHT 3.6 cm squared Mitral E to A Ratio 1.5 MV E' Velocity 75.0 cm/s Mitral E to MV E' Ratio 8.4 Mitral E to LV E' Lateral Ratio 8.5 Mitral E to LV E' Septal Ratio 8.2 TR Peak Velocity 247.5 cm/s TR Peak Gradient 24.5 mmHg TV Peak E Velocity 67.0 cm/s Right Atrial Pressure 3.0 mmHg Pulmonary Artery Systolic Pressu 27.5 mmHg PV Peak Velocity 109.0 cm/s RV Acceleration Time 0.2 s RV Ejection Time 0.4 s RV AcT/ET 0.6 FINDINGS Left Ventricle Normal left ventricular size and systolic function, EF 60 %. No regional wall motion abnormalities. Right Ventricle Normal right ventricular size and systolic function. Right Atrium The right atrium is normal in size. Left Atrium The left atrium is normal in size. Mitral Valve No gross abnormalities noted Aortic Valve No gross abnormalities noted . Tricuspid Valve No gross abnormalities noted . Pulmonic Valve No gross abnormalities noted Pericardium No pericardial effusion. Aorta Normal ascending aorta dimension. CONCLUSIONS Normal left ventricular size and systolic function, EF 60 %. No regional wall motion abnormalities. Normal cardiac chamber sizes. No significant stenotic or regurgitant lesions. Technically difficult study because of poor ultrasonic window Dr Tamar Lane MD FACC (Electronically Signed) Final Date: 13 February 2020 16:20 S
== END 2020-02-13 13:49 | disposition home or self-care (01) ==
LOC: RAD 13:50
PROVIDERS: PCP Family Medicine; Visit Provider Internal Medicine Critical Care Medicine
DX: I27.20 Pulmonary hypertension, unspecified (principal)
CPT/HCPCS: 93306

== ENCOUNTER 2020-02-16 07:14 | Outpatient (CLI) | payer MEDICARE, MEDICAID, SELFPAY ==
--- NOTE | 2020-02-16 07:21 | MM_ITS ---
WS: [id number] Bilateral screening digital mammogram, 02/16/2020 Clinical Data: SCREENING Comparison: 08/22/2013, 02/13/2013, 08/12/2013, 08/03/2012, 01/20/2010, 09/29/2004. Findings: The breast parenchymal pattern shows fibroglandular tissue No spiculated masses or clustered calcific ations are seen. There are no secondary signs of carcinoma. MM/[id number] Impression: 1. Negative bilateral mammogram unchanged. 2. Recommend annual screening mammograms. BIRADS: 1-Negative FOLLOW UP: 1 Year Follow-up The CAD fish checker was used.
== END 2020-02-16 07:15 | disposition home or self-care (01) ==
LOC: RADSHAW 07:17
PROVIDERS: PCP Family Medicine; Visit Provider Family Medicine
DX: Z12.31 Encounter for screening mammogram for malignant neoplasm of breast (principal)
CPT/HCPCS: 77067

== ENCOUNTER → 2020-03-05 09:00 | Outpatient (BNVA) | payer MEDICARE, MEDICAID, SELFPAY | PROVIDERS: PCP Family Medicine; Visit Provider Specialist | DX: G62.9 Polyneuropathy, unspecified (principal); R25.2 Cramp and spasm; F43.12 Post-traumatic stress disorder, chronic; D89.9 Disorder involving the immune mechanism, unspecified; Z85.038 Personal history of other malignant neoplasm of large intestine; Z93.3 Colostomy status; F17.210 Nicotine dependence, cigarettes, uncomplicated | CPT/HCPCS: 99214 ==

== ENCOUNTER → 2020-03-06 08:00 | Outpatient (BNVA) | payer MEDICARE, MEDICAID, SELFPAY | PROVIDERS: PCP Family Medicine; Visit Provider Psychiatry & Neurology Psychiatry | DX: F33.40 Major depressive disorder, recurrent, in remission, unspecified (principal); G47.33 Obstructive sleep apnea (adult) (pediatric); F10.21 Alcohol dependence, in remission; F15.21 Other stimulant dependence, in remission; F14.21 Cocaine dependence, in remission; G25.81 Restless legs syndrome; F43.12 Post-traumatic stress disorder, chronic | CPT/HCPCS: 99214 ==

== ENCOUNTER 2020-03-11 22:31 | Emergency (ER) | payer MEDICARE, MEDICAID, SELFPAY ==
[2020-03-11 22:32] VITALS: BP 125/70; PULSE 70; RESP 20; TEMP 36.4; O2SAT 96; BMI 31.0
--- NOTE | 2020-03-11 22:42 | XRR_ITS ---
PROCEDURE INFORMATION: Exam: XR Chest, 1 View Exam date and time: 03/11/2020 10:55 PM Age: 50 years old Clinical indication: Chest pain; Type not specified; Additional info: Cp TECHNIQUE: Imaging protocol: XR of the chest Views: Frontal portable upright view of the chest. COMPARISON: CR Chest 1 [place] [id number] 11/18/2018 1:18 PM FINDINGS: Tubes, catheters and devices: EKG leads are present overlying the chest. Lungs: The lungs are clear bilaterally. The pulmonary vasculature is normal. Pleural space: No pleural effusion. No pneumothorax. Heart/Mediastinum: The heart is normal in size and contour. Mediastinum: Stable. Vasculature: Moderate aortic arch atherosclerotic calcification without ectasia. Bones/joints: Stable. XR/XR chest 1V portable [id number] IMPRESSION: No acute cardiopulmonary abnormality identified.
--- NOTE | 2020-03-11 22:42 | ECG_ITS ---
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 Measurements Intervals Holly Rate: 66 P: 68 TX: 167 QRS: 54 QRSD: 98 T: 56 QT: 399 QTc: 421 Interpretive Statements SINUS RHYTHM POSSIBLE LEFT ATRIAL ENLARGEMENT [-0.1mV P WAVE IN V1/V2] POSSIBLE RIGHT VENTRICULAR CONDUCTION DELAY [RSR (QR) IN V1/V2] Compared to ECG 08/11/2019 00:25:36 No significant changes Electronically Signed On 03-12-2020 21:33:[address] M.D. [id number]
--- NOTE | 2020-03-11 22:47 | ED_ITS ---
HPI - Chest Pain General: Chief Complaint: Chest Pain Stated Complaint: CP Time Seen by Provider: 03/11/20 22:42 Source: patient and EMS Mode of arrival: EMS Limitations: no limitations History of Present Illness: HPI narrative: 50-year-old female states started having chest pain roughly 1 hour ago. States that sharp pain in the center of her chest is worse with palpation. She denies any shortness of breath or nausea. She denies any fevers. She states she had esophageal spasms and pain like this in the past with chest wall pain. MD complaint: chest pain Associated symptoms: Deny abdominal pain, dyspnea, fever(s), nausea or vomiting Review of Systems Const: Denies: fever(s), chills, body aches or change in appetite Eyes: Denies: blurry vision or eye discomfort ENMT: Denies: throat pain or dental pain Card: Reports: chest pain Resp: Denies: dyspnea GI: Denies: abdominal pain, nausea, vomiting or diarrhea : Denies: dysuria Musc: Denies: neck pain or back pain Skin/Breast: Denies: rash Neuro: Denies: headache(s) Psych: Denies: depression Alcon/Lymph: Denies: easy bruising All/Imm: Denies: urticaria PFSH ED PFSH: Medical History (Updated 03/12/20 @ 01:21 by Samuel Monteiro MD) Alcohol dependence, in remission Chronic post-traumatic stress disorder CKD (chronic kidney disease) Cocaine dependence, in remission Colostomy in place Immunosuppression Lumbar radiculitis Obstructive sleep apnea Osteoarthritis of knees, bilateral Other stimulant dependence, in remission Psoriasis Psoriatic arthritis Restless leg syndrome Spasms of the hands or feet Surgical History H/O tubal ligation H/O: hysterectomy Family History Other Cancer Social History Smoking and tobacco status: current every day smoker cigarettes Years cigarettes smoked: 46 [ Other cigarette details: Hx of 1PPD x 46 Years ] Quit status (tobacco): considering quitting Alcohol intake: current Alcohol intake frequency: holidays/special occasions only Lives independently: Yes Household members: none Marital status: Legally Current occupational status: disabled History of recent travel: No Current gender identity: Female Physical Exam Const: COMMON NORMALS: no acute distress, patient oriented x3 and healthy appearing HENMT: COMMON NORMALS: normocephalic and atraumatic HEAD & SCALP: normocephalic and atraumatic Eye: COMMON NORMALS: Equal, round and reactive pupils present and EOMs intact bilaterally PUPIL: Yes Equal, round and reactive pupils present Neck/C-Spine: COMMON NORMALS: full ROM and supple Chest: COMMONS NORMALS: normal inspection of the chest OTHER: point tender center of chest Resp: COMMON NORMALS: normal respiratory effort, No retractions, No use of accessory muscles and clear to auscultation bilaterally AUSCULTATION: clear to auscultation bilaterally Cardio: COMMON NORMALS: regular rate, regular rhythm and No murmurs present (Cardio) RATE: regular rate RHYTHM: regular rhythm GI: COMMON NORMALS: Normal to inspection, nondistended, normoactive bowel sounds present, Soft to palpation, non-tender and no masses PALPATION: Yes Soft to palpation Extremity: COMMON NORMALS: normal to inspection and full ROM Neuro: COMMON NORMALS: patient oriented x3, moves all extremities and no focal motor deficits Psych: COMMON NORMALS: mental status grossly normal, Normal thought process present and cooperative THOUGHT PROCESS: Normal thought process present Skin: COMMON NORMALS: no rashes or lesions noted and no wounds GENERAL SKIN EXAM: no rashes or lesions noted Course Vital Signs: Vital signs: Vital Signs Temperature 97.6 F 03/11/20 22:32 Pulse Rate 87 03/12/20 01:40 Respiratory Rate 18 03/12/20 01:40 Blood Pressure 145/78 03/12/20 01:40 Pulse Oximetry 99 03/12/20 01:40 MDM - Chest Pain MDM Narrative: Medical decision making narrative: Maura presents with chest pain is likely muscular in nature. She is point tender on exam and reproduces her pain. EKGs and troponins here are negative. She has no signs of acute coronary syndrome. She has no signs of pulmonary embolism. She is stable for discharge will prescribe her Tylenol with Zofran. She is to follow-up with her PCP and return if worsening. Lab Data: Labs: Lab Results 03/11/20 03/11/20 03/11/20 Range/Units 22:40 22:40 22:40 WBC 6.1 (4.0-10.0) 10^3/ uL RBC 4.08 L (4.1-5.3) 10^6/u L Hgb 13.7 (11.5-15.3) g/dL Hct 40.0 (37.0-47.0) % MCV 98.0 (81-99) fL MCH 33.6 (28.0-34.0) pg MCHC 34.3 (30.0-36.0) g/dL RDW 14.3 (12.1-15.1) % Plt Count 266 (130-400) 10^3/c mm MPV 9.7 (7.4-10.4) fL Neut % (Auto) 55.3 % Lymph % (Auto) 35.5 % Carlton % (Auto) 6.6 % Eos % (Auto) 1.5 % Baso % (Auto) 0.8 % Neut # (Auto) 3.34 (1.8-7.7) 10^3/u L Lymph # (Auto) 2.2 (0.8-4.8) 10^3/u L Carlton # (Auto) 0.4 (0.2-0.9) 10^3/u L Eos # (Auto) 0.1 (0.0-0.8) 10^3/u L Baso # (Auto) 0.1 (0.0-0.1) 10^3/u L Nucleated RBC % (a uto) 0 % Nucleated RBCs # 0.0 /100WBC Sodium 138 (136-145) mmol/L Potassium 3.7 (3.5-5.1) mmol/L Chloride 101 (98-107) mmol/L Carbon Dioxide 24 (22-29) mmol/L Anion Gap 16.7 (5-19) BUN 28 H (6-20) mg/dL Creatinine 1.5 H (0.5-0.9) mg/dL GFR Calculation 36.5 L (90-130) mL/min Glucose 108 (65-115) mg/dL Calculated Osmolal ity 292 (285-295) mOsm/k g Calcium 9.1 (8.5-10.5) mg/dL Total Bilirubin 0.7 (0.15-1.2) mg/dL AST 22 (0-32) U/L ALT 24 (0-33) U/L Alkaline Phosphata se 72 (35-105) IU/L Troponin T Baselin e 6 (0-10) ng/L Troponin T 120 Min [place] (0-10) ng/L Delta Troponin T (0-10) ABS# Total Protein 6.6 (6.6-8.7) g/dL Albumin 4.2 (3.5-5.2) g/dL Globulin 2.4 (1.3-4.6) g/dL Lipase 33 (13-60) U/L 03/12/20 Range/Units 00:49 WBC (4.0-10.0) 10^3/ uL RBC (4.1-5.3) 10^6/u L Hgb (11.5-15.3) g/dL Hct (37.0-47.0) % MCV (81-99) fL MCH (28.0-34.0) pg MCHC (30.0-36.0) g/dL RDW (12.1-15.1) % Plt Count (130-400) 10^3/c mm MPV (7.4-10.4) fL Neut % (Auto) % Lymph % (Auto) % Carlton % (Auto) % Eos % (Auto) % Baso % (Auto) % Neut # (Auto) (1.8-7.7) 10^3/u L Lymph # (Auto) (0.8-4.8) 10^3/u L Carlton # (Auto) (0.2-0.9) 10^3/u L Eos # (Auto) (0.0-0.8) 10^3/u L Baso # (Auto) (0.0-0.1) 10^3/u L Nucleated RBC % (a uto) % Nucleated RBCs # /100WBC Sodium (136-145) mmol/L Potassium (3.5-5.1) mmol/L Chloride (98-107) mmol/L Carbon Dioxide (22-29) mmol/L Anion Gap (5-19) BUN (6-20) mg/dL Creatinine (0.5-0.9) mg/dL GFR Calculation (90-130) mL/min Glucose (65-115) mg/dL Calculated Osmolal ity (285-295) mOsm/k g Calcium (8.5-10.5) mg/dL Total Bilirubin (0.15-1.2) mg/dL AST (0-32) U/L ALT (0-33) U/L Alkaline Phosphata se (35-105) IU/L Troponin T Baselin e (0-10) ng/L Troponin T 120 Min [place] 6.00 (0-10) ng/L Delta Troponin T 0 (0-10) ABS# Total Protein (6.6-8.7) g/dL Albumin (3.5-5.2) g/dL Globulin (1.3-4.6) g/dL Lipase (13-60) U/L Imaging Data^: CXR: Attestation: I personally reviewed and interpreted this imaging study as follows: My impression: no acute abnormality EKG Data^: EKG 1: Attestation: I personally reviewed and interpreted this EKG as follows: EKG interpretation date: 03/11/20 EKG interpretation time: 22:44 Interpretation: nsr hr [address] or t wave abnormalities qrs 98 qtc 413 EKG 2: Attestation: I personally reviewed and interpreted this EKG as follows: EKG interpretation date: 03/12/20 EKG interpretation time: 00:49 Interpretation: nsr hr [address] or t wave abnormalities qrs 97 qtc 431 Discharge Plan Discharge Patient Disposition: Home Clinical Impression: Chest wall pain Condition: Stable Prescriptions: New ondansetron 4 mg tablet,disintegrating 4 mg PO Q6H PRN (Reason: nausea and vomiting) Qty: 14 RF: 0 Naprosyn 500 mg tablet 500 mg PO BID PRN (Reason: pain) Qty: 20 RF: 0 No Action Eliquis 5 mg tablet 5 mg PO BID RF: 0 diltiazem HCl [Cardizem] 30 mg tablet 30 mg PO DAILY RF: 0 sumatriptan succinate [Imitrex] 50 mg tablet 50 mg PO Q2H PRNRF: 0 nitroglycerin 0.3 mg tablet, sublingual 0.3 mg SUBLINGUAL Q5M PRNRF: 0 hydroxyzine HCl 25 mg tablet 25 mg PO DAILY PRN (Reason: anxiety) Qty: 30 RF: 2 ropinirole 4 mg tablet 4 mg PO .qhs Qty: 30 RF: 5 quetiapine 400 mg tablet 400 mg PO .qhs Qty: 30 RF: 5 (DME) insulin syringe-needle U-100 [TRUEplus Insulin] 1 mL 30 gauge x 5/16 syringe See Rx Instructions .ROUTE .MEDSUPPLY Qty: 100 RF: 2 methotrexate sodium 25 mg/mL solution 25 mg IM .once weekly Qty: 10 RF: 0 Enbrel 50 mg/mL (1 mL) syringe 50 mg SUBCUT .qweek Qty: 4 RF: 5 (DME) DME: [facility] See Rx Instructions .ROUTE .MEDSUPPLY Qty: 1 RF: 0 folic acid 1 mg tablet 1 mg PO DAILY Qty: 30 RF: 0 umeclidinium-vilanterol [Anoro Ellipta] 62.5-25 mcg/actuation blister with device See Rx Instructions .ROUTE .COMPLEX Qty: 60 RF: 3 fluoxetine 20 mg capsule 60 mg PO DAILY Qty: 90 RF: 5 Discharge Orders: Discharge ED (Routine); Ordered 03/12/20 Ordered By: Samuel Monteiro Referrals: Ayan Jay MD [Primary Care Provider] - 1-3 days Discharge Diet: Advance as tolerated Discharge Activity: Resume usual activity Patient Instructions: Chest Pain (ED) Coding Level of Care Code ED Director Of Distribution for Germang Fwd Exam Comprehensive
[2020-03-11 22:50] LABS: Basophils # 0.1 10^3/uL (0.0-0.1); Basophils % 0.8 %; Eosinophils # 0.1 10^3/uL (0.0-0.8); Eosinophils % 1.5 %; Hemoglobin 13.7 g/dL (11.5-15.3); Lymphocytes # 2.2 10^3/uL (0.8-4.8); Lymphocytes % 35.5 %; Mean Corpuscular HGB Conc 34.3 g/dL (30.0-36.0); Mean Corpuscular Hemoglobin 33.6 pg (28.0-34.0); Mean Platelet Volume 9.7 fL (7.4-10.4); Monocytes # 0.4 10^3/uL (0.2-0.9); Monocytes % 6.6 %; Neutrophils # 3.34 10^3/uL (1.8-7.7); Neutrophils % 55.3 %; Nucleated Red Blood Cells % 0 %; Platelet Count 266 10^3/cmm (130-400); Red Blood Count 4.08 10^6/uL (4.1-5.3); Red Cell Distribution Width 14.3 % (12.1-15.1); White Blood Count 6.1 10^3/uL (4.0-10.0)
[2020-03-11] MEDS: ondansetron 2 mg/ML SDV 2 mL 4 MG IVP (22:52)
[2020-03-11] MEDS: morphine 4 mg/mL SDV 1 mL IVP (22:52)
[2020-03-11 23:12] LABS: Alanine Aminotransferase 24 U/L (0-33); Albumin Level 4.2 g/dL (3.5-5.2); Alkaline Phosphatase 72 IU/L (35-105); Anion Gap 16.7 (5-19); Aspartate Amino Transferase 22 U/L (0-32); Blood Urea Nitrogen 28 mg/dL (6-20); Calcium 9.1 mg/dL (8.5-10.5); Carbon Dioxide 24 mmol/L (22-29); Chloride 101 mmol/L (98-107); Globulin 2.4 g/dL (1.3-4.6); Glomerular Filtration Rate 36.5 mL/min (90-130); Glucose 108 mg/dL (65-115); Lipase 33 U/L (13-60); Osmolality Calculated 292 mOsm/kg (285-295); Potassium 3.7 mmol/L (3.5-5.1); Sodium 138 mmol/L (136-145); Total Bilirubin 0.7 mg/dL (0.15-1.2); Total Protein 6.6 g/dL (6.6-8.7)
[2020-03-11 23:15] LABS: Troponin(5th) Baseline 6 ng/L (0-10)
[2020-03-12] MEDS: diphenhydrAMINE 50 mg/mL SDV 1mL IVP (00:09)
[2020-03-12] MEDS: metoclopramide 5 mg/mL SDV 2 mL 10 MG IVP (00:09)
--- NOTE | 2020-03-12 00:42 | ECG_ITS ---
[facility] Test Date: 2020-03-12 Pat Name: Maura Hermosillo Department: Room: Gender: Female [employer]vey[employer]ger: : 1970 Requested By: Samuel Monteiro Order Number: [id number] Tres MD: Tamar Lane M.D. Measurements Intervals [place] Rate: 66 P: 68 [place]: 174 QRS: 49 QRSD: 97 T: 57 QT: 418 QTc: 438 Interpretive Statements SINUS RHYTHM POSSIBLE RIGHT VENTRICULAR CONDUCTION DELAY [RSR (QR) IN V1/V2] Compared to ECG 03/11/2020 22:44:12 No significant changes Electronically Signed On 03-12-2020 21:42:32 STORE CASHIER [address] Tamar Lane M.D. [id number]
[2020-03-12 01:15] LABS: Troponin 5 2HR Delta 0 ABS# (0-10)
[2020-03-12 01:40] VITALS: BP 145/78; PULSE 87; RESP 18; O2SAT 99
== END 2020-03-12 01:42 | disposition home or self-care (01) ==
PROVIDERS: Emergency Provider Emergency Medicine; PCP Family Medicine
DX: R07.89 Other chest pain (principal); Z79.01 Long term (current) use of anticoagulants; F17.210 Nicotine dependence, cigarettes, uncomplicated
CPT/HCPCS: 12345; 71045; 80053; 83690; 84484; 85025; 93005; 96374; 96375; 99282; 99284; J1200; J2270; J2405; J2765

== ENCOUNTER 2020-04-02 07:34 | Outpatient (CLI) | payer MEDICARE, MEDICAID, SELFPAY ==
--- NOTE | 2020-04-02 08:00 | MR_ITS ---
WS: [id number] MRI LUMBAR SPINE NONCONTRAST HISTORY: G62.9 - Polyneuropathy, unspecified COMPARISON: 03/10/2012 TECHNIQUE: Sagittal and axial multisequence imaging is submitted. Mild LEFT curvature lumbar spine. Posterior alignment is normal. No fractures or marrow edema. Very mild disc desiccation without loss of height. Conus terminates normally at L1. L1-L2: Normal. L2-L3: Normal. L3-L4: Normal. L4-L5: Very minimal disc bulging with mild ligamentum flavum hypertrophy. No stenosis or protrusions. L5-S1: Moderate asymmetric osteophytic ridging and annular disc bulging. Disc extends greatest into t he LEFT foramen and extraforaminal. Similar to the prior examination. Mild narrowing of the subarticu lar recess and LEFT foramen. Annular fissures are noted within the LEFT foramen. Similar appearance t o the prior examination without progression of stenosis or disc protrusion. Small RIGHT extrarenal pelvis. MR/MR lumbar spine wo con* [id number] IMPRESSION: 1. Mild LEFT subarticular recess and LEFT foraminal stenosis at L5-S1. Associa gab annular fissures in the LEFT foramen but no significant progression of dise ase. Similar to the prior study of 03/10/2012. 2. No additional disc protrusions or significant stenosis.
--- NOTE | 2020-04-02 08:45 | MR_ITS ---
WS: [id number] MRI THORACIC SPINE noncontrast. HISTORY: G62.9 - Polyneuropathy, unspecified COMPARISON: None available. TECHNIQUE: Multiplanar sequences are performed in sagittal and axial planes. Normal thoracic alignment. Very minimal disc desiccation throughout the thoracic spine. No fractures. No marrow edema or retropulsion of vertebral bodies. Signal within the cord is normal. There is no c ord atrophy or enlargement. No syrinx. Conus tapers near L1. T1-2: Normal. T2-3: Normal. T3-4: Normal. T4-5: Normal. T5-6: Normal. T6-7: Normal. T7-8: Normal. T8-9: Normal. T9-10: Normal. T10-11: Normal. T11-12: Normal. MR/MR thoracic spin wo con* [id number] IMPRESSION: 1. Very minimal degenerative spondylitic changes in the thoracic spine. 2. No disc protrusions or stenosis. Normal appearance of the thoracic cord.
== END 2020-04-02 07:35 | disposition home or self-care (01) ==
LOC: RADSHAW 07:35
PROVIDERS: PCP Family Medicine; Visit Provider Specialist
DX: G62.9 Polyneuropathy, unspecified (principal); M48.07 Spinal stenosis, lumbosacral region
CPT/HCPCS: 72146; 72148

== ENCOUNTER → 2020-04-11 07:24 | Outpatient (BNVA) | payer MEDICARE, MEDICAID, SELFPAY | PROVIDERS: PCP Family Medicine; Visit Provider Psychiatry & Neurology Psychiatry | DX: F33.40 Major depressive disorder, recurrent, in remission, unspecified (principal); G47.33 Obstructive sleep apnea (adult) (pediatric); G25.81 Restless legs syndrome; F43.12 Post-traumatic stress disorder, chronic; F10.21 Alcohol dependence, in remission; F15.21 Other stimulant dependence, in remission; F14.21 Cocaine dependence, in remission | CPT/HCPCS: 99214 ==

== ENCOUNTER 2020-05-21 18:34 | Inpatient (IN) | payer MEDICARE, MEDICAID, SELFPAY ==
[2020-05-21] VITALS (7 sets, daily range): BP systolic 112–152; BP diastolic 57–93; PULSE 72–83; RESP 16–23; TEMP 36.7–37; O2SAT 91–97; BMI 34.7
[2020-05-21 19:02] LABS: Basophils # 0.1 10^3/uL (0.0-0.1); Basophils % 1.1 %; Eosinophils # 0.1 10^3/uL (0.0-0.8); Eosinophils % 1.2 %; Hematocrit 48.7 % (37.0-47.0); Hemoglobin 16.2 g/dL (11.5-15.3); Lymphocytes # 2.4 10^3/uL (0.8-4.8); Lymphocytes % 23.3 %; Mean Corpuscular HGB Conc 33.3 g/dL (30.0-36.0); Mean Corpuscular Hemoglobin 33.1 pg (28.0-34.0); Mean Corpuscular Volume 99.4 fL (81-99); Monocytes # 0.8 10^3/uL (0.2-0.9); Monocytes % 7.5 %; Neutrophils % 66.2 %; Nucleated Red Blood Cells % 0 %; Platelet Count 292 10^3/cmm (130-400); Red Cell Distribution Width 13.5 % (12.1-15.1); White Blood Count 10.4 10^3/uL (4.0-10.0)
[2020-05-21] MEDS: ondansetron 2 mg/ML SDV 2 mL 4 MG IVP ×2 (19:14→23:36)
[2020-05-21] MEDS: morphine 4 mg/mL SDV 1 mL 2 MG IVP ×2 (19:16→22:47)
[2020-05-21] MEDS: sodium chloride 0.9% 1,000 ML 999 ML IV (19:16)
--- NOTE | 2020-05-21 19:24 | PC.PHAR ---
pt states she has a nurse who sets up her medications but states she knows what she takes-pt state her nurse had set up her eliquis for tid this week but pt states she knew it was wrong so she has only been taking bid-pt states she takes enbrel on wed last filled on 04/30/20 and methotrexate injection on fridays last ext med shows filled on 03/19/20-pt states she hasnt taken them this week states she was told not to take for 2 weeks after finishing her antibiotics-pt states she is still using the anoro inhaler ext med history shows last filled on 02/29/20-pt states she is still taking folic acid ext med history shows last filled on 02/28/21
[2020-05-21 19:48] LABS: Add Urine Microscopic? NO
[2020-05-21 19:53] LABS: Bilirubin Urine Neg (Negative); Blood Urine Neg (Negative); Glucose Urine UA Norm (Normal); Ketones Urine Negative (Negative); Leukocyte Esterase Urine Negative (Negative); Nitrate Urine Negative (Negative); Protein Urine Neg (Negative); Urine Appearance Clear (CLEAR); Urine Color Yellow (Yellow); Urobilinogen Urine Norm (Negative); pH Urine 6.5 (5-7)
--- NOTE | 2020-05-21 20:15 | CTR_ITS ---
PROCEDURE INFORMATION: Exam: CT Abdomen And Pelvis With Contrast Exam date and time: 05/21/2020 8:19 PM Age: 50 years old Clinical indication: Abdominal pain; Localized; Prior surgery; Surgery type: Csection. Colostomy. ; Patient HX: Right sided abd pain with nausea. ; Additional info: Right abd pain TECHNIQUE: Imaging protocol: Computed tomography of the abdomen and pelvis with contrast. Sagittal and coronal reformatted images were created and reviewed. Radiation optimization: All CT scans at this facility use at least one of these dose optimization techniques: automated exposure control; mA and/or kV adjustment per patient size (includes targeted exams where dose is matched to clinical indication); or iterative reconstruction. Contrast material: OMNI 300; Contrast volume: 95 ml; Contrast route: INTRAVENOUS (IV); COMPARISON: CT abdomen pelvis w con* [id number] 09/14/2019 11:23 AM RADIATION DOSE METRICS: Total DLP (mGy-cm): 1768.14 FINDINGS: Lungs: Dependent atelectasis in the left lung. Pleural spaces: No pleural effusion. Heart: Visualized portions of the heart are unremarkable. Liver: The liver is unremarkable. Gallbladder and bile ducts: The gallbladder is unremarkable. No biliary ductal dilatation. Pancreas: Stable mild atrophy of the pancreatic parenchyma. No pancreatic ductal dilatation. Spleen: The spleen is unremarkable. Adrenal glands: The right and left adrenal glands are unremarkable. Kidneys and ureters: Interval development of moderate right hydronephrosis and proximal hydroureter. The right ureter is compressed between the iliac vessels and a dilated bowel loop at the level of the pelvic inlet. The left kidney is unremarkable. The left ureter is unremarkable. Stomach and bowel: Stable changes consistent with a previous sigmoidectomy and colostomy in the left mid abdomen. Stable postsurgical changes in the small bowel in the central abdomen. Mildly dilated small bowel loops with air-fluid levels in the right lower quadrant. Small bowel loops measure up to 3.9 cm in diameter (series 2, image 64). No bowel wall thickening. No pneumatosis. Ingested contents in the stomach. Appendix: Appendix not definitely visualized. No inflammatory changes in the pericecal region however. Intraperitoneal space: No free intraperitoneal air. No ascites. No loculated fluid collections to suggest an abscess. Vasculature: Mild atherosclerotic changes in the visualized arteries. No evidence for aortic aneurysm or aortic dissection. Lymph nodes: No lymphadenopathy. Urinary bladder: Unremarkable as visualized. Reproductive: Stable changes consistent with a previous hysterectomy. The ovaries are not definitely visualized, patient may have had a prior bilateral oophorectomy. No adnexal masses. Bones/joints: Mild degenerative changes at both the right and left hips. Multilevel degenerative changes of varying severity in the visualized spine. Bone island in the S1 segment of the sacrum is unchanged. Soft tissues: No acute abnormality in the extra-abdominal soft tissues. CT/CT abdomen pelvis w con* [id number] IMPRESSION: 1. Mildly dilated loops of small bowel in the right lower quadrant suspicious for a focal small bowel adynamic ileus versus partial obstruction. 2. Interval development of moderate right hydronephrosis and proximal hydroureter. The right ureter is compressed between the iliac vessels and a dilated bowel loop at the level of the pelvic inlet. 3. Stable changes consistent with a previous hysterectomy. 4. The ovaries are not definitely visualized, patient may have had a prior bilateral oophorectomy. No adnexal masses. Recommend clinical correlation. 5. Incidental/nonacute findings are listed in the report. Radiation Dose CTDIVOL = (mGy): DLP = 1768.14 (mGy-cm)
--- NOTE | 2020-05-21 20:17 | ED_ITS ---
HPI - Abdominal Pain General: Chief Complaint: Abdominal Pain Stated Complaint: ABD PAIN SEVERE UPPER/LOWER R QUAD Time Seen by Provider: 05/21/20 18:37 History of Present Illness: HPI narrative: The patient is a 50-year-old female who comes to the ER complaining of right-sided abdominal pain which has gotten worse throughout the day. Also nausea and vomiting at home. Denies diarrhea MD elicited complaint: abdominal pain Location: RUQ and RLQ Severity: moderate Quality: sharp Migration to: no migration Exacerbating factors: nothing Relieving factors: nothing Associated Symptoms: Reports nausea and vomiting Review of Systems General: Reports: 10 or more systems reviewed and unremarkable except in HPI and below Const: Denies: fatigue Eyes: Denies: change in vision, blurry vision or eye redness ENMT: Denies: throat pain, swelling of lips/tongue, ear or mastoid pain or nasal congestion Card: Denies: chest pain, palpitations, irregular heart rhythm, edema, dyspnea on exertion or orthopnea Resp: Denies: dyspnea, productive cough or non-productive cough GI: Reports: abdominal pain, nausea and vomiting : Denies: flank pain, difficulty voiding, urinary frequency or urinary urgency Musc: Denies: neck pain, back pain, extremity pain, joint pain, joint redness, limited range of motion or muscle weakness Skin/Breast: Denies: rash, pruritus, erythema, skin pain or skin tenderness Neuro: Denies: headache(s), numbness in extremities, weakness in extremities, sensory changes, difficulty walking, dizziness, confusion or Slurred speech present Psych: Denies: anxiety or depression Endo: Denies: polyuria All/Imm: Denies: urticaria, throat swelling or tongue swelling PFSH ED PFSH: Medical History Alcohol dependence, in remission Chronic post-traumatic stress disorder CKD (chronic kidney disease) Cocaine dependence, in remission Colostomy in place Immunosuppression Lumbar radiculitis Obstructive sleep apnea Osteoarthritis of knees, bilateral Other stimulant dependence, in remission Psoriasis Psoriatic arthritis Restless leg syndrome Spasms of the hands or feet Surgical History H/O tubal ligation H/O: hysterectomy Family History Other Cancer Social History Smoking and tobacco status: current every day smoker cigarettes Years cigarettes smoked: 46 [ Other cigarette details: Hx of 1PPD x 46 Years ] Quit status (tobacco): considering quitting Smoking risk assessment/counseling performed?: Yes Alcohol intake: current Alcohol intake frequency: holidays/special occasions only Counseling given: No Counseling given: No Lives independently: Yes Household members: none Marital status: Legally Current occupational status: disabled History of recent travel: No Current gender identity: Female Physical Exam Const: COMMON NORMALS: no acute distress, average body habitus, patient oriented x3, no limitations, healthy appearing, alert and well nourished GENERAL APPEARANCE: cooperative, comfortable, well kempt and well developed ORIENTATION/CONSCIOUSNESS: Yes awake, Yes oriented to person, Yes oriented to place and Yes oriented to time HENMT: COMMON NORMALS: normocephalic, external ears normal and Normal external nose present HEAD & SCALP: normal to inspection and normocephalic NOSE: Normal external nose present EXTERNAL EAR: Yes external ears normal MOUTH: Normal oral and palatal mucosa present THROAT: posterior oropharynx normal Eye: COMMON NORMALS: Equal, round and reactive pupils present and EOMs intact bilaterally GENERAL EYE: appearance normal, both eyes and all related structures PUPIL: Yes Equal, round and reactive pupils present Neck/C-Spine: COMMON NORMALS: full ROM, no lymphadenopathy, no meningeal signs and no JVD GENERAL: Yes normal visual inspection Lymph: LYMPHATIC: no lymphadenopathy noted Chest: COMMONS NORMALS: normal inspection of the chest and normal palpation of entire chest wall Resp: COMMON NORMALS: normal respiratory effort, No retractions, No use of accessory muscles, clear to auscultation bilaterally and percussion normal EFFORT & INSPECTION: Yes able to speak in complete sentences AUSCULTATION: clear to auscultation bilaterally PERCUSSION: percussion normal Cardio: COMMON NORMALS: no JVD, regular rate, regular rhythm, S1 normal heart sound present, S2 normal heart sound present and Peripheral pulses 2+ throughout RATE: regular rate RHYTHM: regular rhythm HEART SOUNDS: S1 normal heart sound present and S2 normal heart sound present PERIPHERAL PULSES: Peripheral pulses 2+ throughout GI: COMMON NORMALS: Normal to inspection, nondistended, normoactive bowel sounds present, Soft to palpation and no masses INSPECTION: Yes normal to inspection PALPATION: Yes Soft to palpation and Yes Tenderness to palpation present (GI) (Epigastric pain as well) Details: RLQ and RUQ : COMMON NORMALS: Yes no CVA tenderness BLADDER/KIDNEY EXAM: Yes no CVA tenderness Back/Pelvis: COMMON NORMALS: no CVA tenderness, thoracic and lumbar spine normal to inspection, no thoracic nor lumbar tenderness and thoraco-lumbar ROM normal Extremity: COMMON NORMALS: normal to inspection, full ROM, capillary refill normal, no joint enlargement and no pedal edema GENERAL: Yes normal exam except as noted Neuro: COMMON NORMALS: patient oriented x3, CN's II-XII intact bilaterally, moves all extremities, no focal motor deficits, no sensory deficits noted and gait normal SENSORIUM/ORIENTATION: Yes alert, Yes oriented to person, Yes oriented to place and Yes oriented to time MENINGEAL SIGNS: Yes no meningeal signs Psych: COMMON NORMALS: mental status grossly normal, Normal thought process present, cooperative, normal affect and speech normal APPEARANCE: Yes well kempt ATTITUDE: Yes calm SPEECH: Yes normal speech THOUGHT PROCESS: Normal thought process present Skin: COMMON NORMALS: no rashes or lesions noted GENERAL SKIN EXAM: no rashes or lesions noted Course Vital Signs: Vital signs: Vital Signs Temperature 98.1 F 05/21/20 18:37 Pulse Rate 73 05/21/20 20:56 Respiratory Rate 19 H 05/21/20 20:56 Blood Pressure 114/57 05/21/20 20:56 Pulse Oximetry 96 05/21/20 20:56 MDM - Abdominal Pain MDM Narrative: Medical decision making narrative: Patient came in with moderate to severe right-sided belly pain which is atypical for her. CT shows a focal adynamic ileus versus partial small bowel obstruction. Also it shows right hydronephrosis and hydroureter blocked at the pelvic brim by a dilated bowel loop in the iliac vessels. Made her n.p.o. She has not vomited here. She was given Zofran and pain control. She has a mildly elevated lactate at 2.8 and a mild leukocytosis as well. Discussed with Dr. Flores who accepts for a dmission. Lab Data: Labs: Lab Results 05/21/20 05/21/20 05/21/20 Range/Units 18:20 18:20 18:20 WBC 10.4 H (4.0-10.0) 10^3/ uL RBC 4.90 (4.1-5.3) 10^6/u L Hgb 16.2 H (11.5-15.3) g/dL Hct 48.7 H (37.0-47.0) % MCV 99.4 H (81-99) fL MCH 33.1 (28.0-34.0) pg MCHC 33.3 (30.0-36.0) g/dL RDW 13.5 (12.1-15.1) % Plt Count 292 (130-400) 10^3/c mm MPV 10.0 (7.4-10.4) fL Neut % (Auto) 66.2 % Lymph % (Auto) 23.3 % [place] % (Auto) 7.5 % Eos % (Auto) 1.2 % Baso % (Auto) 1.1 % Neut # (Auto) 6.90 (1.8-7.7) 10^3/u L Lymph # (Auto) 2.4 (0.8-4.8) 10^3/u L [place] # (Auto) 0.8 (0.2-0.9) 10^3/u L Eos # (Auto) 0.1 (0.0-0.8) 10^3/u L Baso # (Auto) 0.1 (0.0-0.1) 10^3/u L Nucleated RBC % (a uto) 0 % Nucleated RBCs # 0.0 /100WBC Sodium 138 (136-145) mmol/L Potassium 4.5 (3.5-5.1) mmol/L Chloride 98 (98-107) mmol/L Carbon Dioxide 23 (22-29) mmol/L Anion Gap 21.5 H (5-19) BUN 18 (6-20) mg/dL Creatinine 1.0 H (0.5-0.9) mg/dL GFR Calculation 58.2 L (90-130) mL/min Glucose 88 (65-115) mg/dL Calculated Osmolal ity 287 (285-295) mOsm/k g Lactate (0.5-2.2) mmol/L Calcium 10.0 (8.5-10.5) mg/dL Total Bilirubin 0.5 (0.15-1.2) mg/dL AST 42 H (0-32) U/L ALT 52 H (0-33) U/L Alkaline Phosphata se 81 (35-105) IU/L Total Protein 8.0 (6.6-8.7) g/dL Albumin 4.6 (3.5-5.2) g/dL Globulin 3.4 (1.3-4.6) g/dL Lipase 28 (13-60) U/L Urine Color (Yellow) Urine Appearance (CLEAR) Urine pH (5-7) Ur Specific Gravit y (1.005-1.030) Urine Protein (Negative) Urine Glucose (UA) (Normal) Urine Ketones (Negative) Urine Blood (Negative) Urine Nitrate (Negative) Urine Bilirubin (Negative) Urine Urobilinogen (Negative) mg/dL Ur Leukocyte Queta ase (Negative) Ethyl Alcohol < 10 (0-10) mg/dL 05/21/20 05/21/20 Range/Units 19:38 19:38 WBC (4.0-10.0) 10^3/ uL RBC (4.1-5.3) 10^6/u L Hgb (11.5-15.3) g/dL Hct (37.0-47.0) % MCV (81-99) fL MCH (28.0-34.0) pg MCHC (30.0-36.0) g/dL RDW (12.1-15.1) % Plt Count (130-400) 10^3/c mm MPV (7.4-10.4) fL Neut % (Auto) % Lymph % (Auto) % [place] % (Auto) % Eos % (Auto) % Baso % (Auto) % Neut # (Auto) (1.8-7.7) 10^3/u L Lymph # (Auto) (0.8-4.8) 10^3/u L [place] # (Auto) (0.2-0.9) 10^3/u L Eos # (Auto) (0.0-0.8) 10^3/u L Baso # (Auto) (0.0-0.1) 10^3/u L Nucleated RBC % (a uto) % Nucleated RBCs # /100WBC Sodium (136-145) mmol/L Potassium (3.5-5.1) mmol/L Chloride (98-107) mmol/L Carbon Dioxide (22-29) mmol/L Anion Gap (5-19) BUN (6-20) mg/dL Creatinine (0.5-0.9) mg/dL GFR Calculation (90-130) mL/min Glucose (65-115) mg/dL Calculated Osmolal ity (285-295) mOsm/k g Lactate 2.8 H (0.5-2.2) mmol/L Calcium (8.5-10.5) mg/dL Total Bilirubin (0.15-1.2) mg/dL AST (0-32) U/L ALT (0-33) U/L Alkaline Phosphata se (35-105) IU/L Total Protein (6.6-8.7) g/dL Albumin (3.5-5.2) g/dL Globulin (1.3-4.6) g/dL Lipase (13-60) U/L Urine Color Yellow (Yellow) Urine Appearance Clear (CLEAR) Urine pH 6.5 (5-7) Ur Specific Gravit y 1.010 (1.005-1.030) Urine Protein Neg (Negative) Urine Glucose (UA) Norm (Normal) Urine Ketones Negative (Negative) Urine Blood Neg (Negative) Urine Nitrate Negative (Negative) Urine Bilirubin Neg (Negative) Urine Urobilinogen Norm (Negative) mg/dL Ur Leukocyte Queta ase Negative (Negative) Ethyl Alcohol (0-10) mg/dL Discharge Plan Discharge Patient Disposition: Placed in Observation Clinical Impression: Abdominal pain Coding Level of Care Code ED Electric Melt Operator for Vicente Fwd Exam Comprehensive
[2020-05-21 20:27] LABS: Lactate (Lactic Acid level) 2.8 mmol/L (0.5-2.2)
[2020-05-21 21:16] LABS: Anion Gap 21.5 (5-19); Blood Urea Nitrogen 18 mg/dL (6-20); Carbon Dioxide 23 mmol/L (22-29); Chloride 98 mmol/L (98-107); Glomerular Filtration Rate 58.2 mL/min (90-130); Potassium 4.5 mmol/L (3.5-5.1); Sodium 138 mmol/L (136-145)
[2020-05-21 21:17] LABS: Alanine Aminotransferase 52 U/L (0-33); Albumin Level 4.6 g/dL (3.5-5.2); Alkaline Phosphatase 81 IU/L (35-105); Aspartate Amino Transferase 42 U/L (0-32); Globulin 3.4 g/dL (1.3-4.6); Glucose 88 mg/dL (65-115); Lipase 28 U/L (13-60); Osmolality Calculated 287 mOsm/kg (285-295); Total Bilirubin 0.5 mg/dL (0.15-1.2)
[2020-05-21] MEDS: iohexol 300 mg/mL 100 mL Btl IV (21:28)
[2020-05-21 21:33] LABS: Alcohol Level < 10 mg/dL (0-10)
[2020-05-21] MEDS: HYDROmorphone 1 mg/mL INJ 1 mL 0.5 MG IVP (22:48)
[2020-05-22] VITALS (11 sets, daily range): BP systolic 98–152; BP diastolic 56–93; PULSE 59–85; RESP 16–20; TEMP 36.1–36.6; O2SAT 18–95
--- NOTE | 2020-05-22 00:18 | P.HP_ITS ---
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 This has been progressively worsening for the past few days. Associated with nausea, vomiting and poor appetite. She stated she has been having bowel movement frequently throughout the day. Denied fever, chills, chest pain or shortness of breath. Upon arrival to ER her initial laboratory work up showed a WBC of 10.4, hemoglobin 16.2, hematocrit of 40.7 and platelet count 292. Sodium 138, potassium 4.5, chloride 98, bicarb 20, BUN 18 and creatinine 1.0. AST of 42, ALT of 52 and lactic acid of 2.8. Patient's initial vital signs showed a blood pressure 143/73, heart rate 79, respiratory rate 23 and a temperature of 98.1?. Imaging studies included a CT abd/pelvis which showed mildly dilated loops of small bowel in the right lower quadrant suspicious for a focal small bowel adynamic ileus vs partial small bowel obstruction. Additionally noted to have moderate right hydronephrosis and proximal right hydrometer which appeared to be compressed b/w iliac vessels and dilated loops of bowel at the level of the pelvic inlet. While in ER a NG tube was placed to LIS and patient was given multiple dose of IV pain medications. Review of Systems General: Reports: 10 or more systems reviewed and unremarkable except in HPI and below Medications/Allergies Home Medications Medication Instructions Recorded Confirmed Last Taken Type apixaban 5 mg tablet 5 mg PO BID 04/04/19 05/21/20 05/21/20 13:00 History took both doses toda sumatriptan succinate 50 mg tablet 50 mg PO PRN 04/04/19 05/21/20 Unknown History insulin syringe-needle U-100 1 mL #100 each 08/10/19 05/21/20 Unknown Rx 30 gauge x 5/16 walker #1 each 12/14/19 05/21/20 Unknown Rx folic acid 1 mg tablet 1 mg PO DAILY #30 tab 12/28/19 05/21/20 Unknown Rx umeclidinium 62.5 mcg-vilanterol See Rx Instructions .ROUTE 01/01/20 05/21/20 Unknown Rx 25 mcg/actuation powdr for .COMPLEX #60 each inhalation hydroxyzine HCl 25 mg tablet 25 mg PO DAILY PRN #30 tab 04/11/20 05/21/20 05/21/20 Rx amoxicillin 875 mg-potassium 1 tab PO BID 5 Days #10 tab 05/14/20 05/21/20 05/19/20 Rx clavulanate 125 mg tablet pt states finished Vitamin B-12 1 tab PO DAILY 05/21/20 05/21/20 Unknown History etanercept [Enbrel] 50 mg SUBCUT Q7D 05/21/20 05/21/20 Unknown History fluoxetine See Rx Instructions .ROUTE .COMPLEX 05/21/20 05/21/20 05/21/20 13:00 History methotrexate sodium 25 mg IM Q7D 05/21/20 05/21/20 Unknown History nitroglycerin 0.4 mg SUBLINGUAL Q5M PRN 05/21/20 05/21/20 Unknown History pantoprazole [Protonix] 40 mg PO BID 05/21/20 05/21/20 05/21/20 07:00 History pregabalin [Lyrica] 100 mg PO TID 05/21/20 05/21/20 05/21/20 13:00 History quetiapine 400 mg PO BEDTIME 05/21/20 05/21/20 Unknown History ropinirole 4 mg PO BEDTIME 05/21/20 05/21/20 Unknown History Allergies Allergy/AdvReac Type Severity Reaction Status Date / Time coconut oil Allergy Severe anaphylaxis Verified 05/21/20 18:44 mushroom Allergy Severe trouble Verified 05/21/20 18:44 breathing duloxetine [From Cymbalta] Allergy dizziness,v Verified 05/21/20 18:44 omiting atorvastatin AdvReac does not Verified 05/21/20 18:44 want to take it PFSH Acute PFSH: Medical History Alcohol dependence, in remission Chronic post-traumatic stress disorder CKD (chronic kidney disease) Cocaine dependence, in remission Colostomy in place Immunosuppression Lumbar radiculitis Obstructive sleep apnea Osteoarthritis of knees, bilateral Other stimulant dependence, in remission Psoriasis Psoriatic arthritis Restless leg syndrome Spasms of the hands or feet Surgical History H/O tubal ligation H/O: hysterectomy Family History Other Cancer Social History Smoking and tobacco status: current every day smoker cigarettes Years cigarettes smoked: 46 [ Other cigarette details: Hx of 1PPD x 46 Years ] Quit status (tobacco): considering quitting Smoking risk assessment/counseling performed?: Yes Alcohol intake: current Alcohol intake frequency: holidays/special occasions only Counseling given: No Counseling given: No Lives independently: Yes Household members: none Marital status: Legally Current occupational status: disabled History of recent travel: No Current gender identity: Female Vitals/I&O/Wt Last Vital Signs Temp 98.1 F 05/21/20 18:37 Pulse 83 05/21/20 23:34 Resp 19 H 05/21/20 23:34 BP 152/93 05/21/20 23:34 Pulse Ox 91 05/21/20 23:34 05/21/20 05/21/20 05/22/20 14:59 22:59 06:59 Intake Total 1000 / 1000 Balance 1000 / 1000 Weight last 48 hrs Weight 103.419 kg Physical Exam Narrative: EXAM NARRATIVE: General : Alert, awake oriented x 3, mild distress due to abd pain HEENT: EOMI, grossly unremarkable Chest : Non-labored respiration CVS : NSR ABD: Tenderness to palpation on right side - colostomy in place Ext: No edema Data : 05/21/20 18:20 05/21/20 18:20 A&P Assessment and plan (1) Abdominal pain: Status: Acute (2) Peripheral neuropathy: Status: Acute (3) Obstructive sleep apnea: Status: Acute (4) Restless leg syndrome: Status: Acute (5) Psoriatic arthritis: Status: Acute (6) Immunosuppression: Status: Acute (7) Pulmonary embolism: Status: Acute (8) Chronic post-traumatic stress disorder: Status: Acute Abdominal Pain due to suspected Partial SBO - CT abd/pelvis - Mildly dilated SB loops in RLQ - S/p NG placement in ER - to LIS - NPO - NS at 75 cc/hr - Consult surgery in am - Pain control Right moderate hydrouretronephrosis due to above - Can consider renal US once above resolved - Can also consider urology consult - Monitor u/o Hx of Colon Cancer s/p colectomy/colostomy - In remission - hx of stage 3 - GS consulted Hx of Recurrent Pulmonary embolism - On Eliquis prior to arrival - Given possible need for surgical intervention - Started on Heparin got - If no surgical intervention planned can resume eliquis Obstructive sleep apnea - On CPAP QHS Psoriatic arthritis on immunosuppression - On Enbrel / Mtx Polyneuropathy w/ demyelinating features GI prophylaxis - Pepcid 20 mg IV BID DVT prophylaxis - Heparin drip Additional Medical Problems - Alcoholism / Hx of Cocaine dependence - Chronic kidney disease stage 2-3 - Restless leg syndrome Attestations Medical Necessity Statement*: Will require over 2 midnight stay in hospital for eval and treatment for possible sbo Time Spent in Patient Care: Greater than 35 minutes (>than 50% of time spent in counselling and/or direct pt care on unit) . Coding Level of Care Code Acute Centrifugal Separator for Chg Fwd Diagnoses Abdominal pain R10.9 Peripheral neuropathy G62.9 Obstructive sleep apnea G47.33 Restless leg syndrome G25.81 Psoriatic arthritis L40.50 Immunosuppression D89.9 Pulmonary embolism I26.99 Chronic post-traumatic stress disorder F43.12
[2020-05-22] MEDS: famotidine 20 mg/2 mL INJ IVP ×2 (00:54→11:55)
[2020-05-22] MEDS: sodium chloride 0.9% 500 ML 75 ML IV ×2 (00:54→07:32)
[2020-05-22] MEDS: morphine 4 mg/mL SDV 1 mL 2 MG IVP ×5 (03:33→20:42)
[2020-05-22] MEDS: phenol oral Spray 177 mL 3 SPRAY MUCOUS MEM ×3 (03:39→16:08)
[2020-05-22] MEDS: heparin 5,000 unit/mL INJ 1 mL IV (04:44)
[2020-05-22 05:47] LABS: Basophils # 0.1 10^3/uL (0.0-0.1); Basophils % 1.1 %; Eosinophils # 0.1 10^3/uL (0.0-0.8); Eosinophils % 1.2 %; Hematocrit 39.7 % (37.0-47.0); Hemoglobin 13.1 g/dL (11.5-15.3); Lymphocytes # 2.5 10^3/uL (0.8-4.8); Lymphocytes % 38.9 %; Mean Corpuscular Hemoglobin 32.8 pg (28.0-34.0); Mean Corpuscular Volume 99.5 fL (81-99); Mean Platelet Volume 10.3 fL (7.4-10.4); Monocytes # 0.8 10^3/uL (0.2-0.9); Monocytes % 11.6 %; Neutrophils # 3.01 10^3/uL (1.8-7.7); Neutrophils % 46.7 %; Nucleated Red Blood Cells % 0 %; Platelet Count 246 10^3/cmm (130-400); Red Blood Count 3.99 10^6/uL (4.1-5.3); Red Cell Distribution Width 13.6 % (12.1-15.1); White Blood Count 6.5 10^3/uL (4.0-10.0)
[2020-05-22 06:04] LABS: Alanine Aminotransferase 34 U/L (0-33); Albumin Level 3.7 g/dL (3.5-5.2); Alkaline Phosphatase 61 IU/L (35-105); Anion Gap 14.1 (5-19); Aspartate Amino Transferase 28 U/L (0-32); Blood Urea Nitrogen 17 mg/dL (6-20); Calcium 8.6 mg/dL (8.5-10.5); Carbon Dioxide 26 mmol/L (22-29); Chloride 106 mmol/L (98-107); Globulin 2.7 g/dL (1.3-4.6); Glomerular Filtration Rate 75.3 mL/min (90-130); Glucose 96 mg/dL (65-115); Osmolality Calculated 295 mOsm/kg (285-295); Potassium 4.1 mmol/L (3.5-5.1); Sodium 142 mmol/L (136-145); Total Bilirubin 0.3 mg/dL (0.15-1.2); Total Protein 6.4 g/dL (6.6-8.7)
[2020-05-22 06:04] LABS: Lactic Sepsis W/Reflex 1.8 mmol/L (0.5-2.2)
[2020-05-22 06:56] LABS: Slide Review Slide Review Perform
--- NOTE | 2020-05-22 07:45 | PC.NURSE ---
Patient is refusing SCD's because she has restless leg syndrome and states that the squeezing will just make it worse.
--- NOTE | 2020-05-22 07:51 | XR_ITS ---
WS: [id number] Exam: XR chest 1V portable [id number] Date/Time of Exam: 05/22/2020 7:51 AM Reason For Exam: NG tube placement Comparison 03/11/2020. The NG tube is been placed. The tip ends just above the GE junction. The tube should be advanced anot her 8 to 10 cm for optimal position. The lungs are clear and fully expanded. Normal cardiomediastinal structures and regional bony elements. XR/XR chest 1V portable [id number] IMPRESSION: 1. NG tube in place ending just above the expected region of the gastroesophage al junction. The tube should be advanced another 8 to 10 cm for optimal positio n. 2. The chest is otherwise normal.
--- NOTE | 2020-05-22 10:17 | PC.NURSE ---
Addendum entered by SN El 05/22/20 10:32: Taped securely to nose w/ 2 strips of clear tape. Original Note: 1000- Per HANS Keller request to advance NG tube 8-10cm, removed tape and advanced pts. NG tube 8cm and observed return. Placement noted with red marker. Pt. tolerated fair, experienced pain w/ manipulation of NG tube/removal of tape. Frequent encouragement for relaxation given during advancement. Stayed w/ pt 5 min post advancement, pt. appeared calm. Informed HANS Keller process was completed. [employer] instructor at bedside during advancement.
[2020-05-22 12:09] LABS: Partial Thromboplastin Time 203.1 SECONDS (23.9-36.7)
--- NOTE | 2020-05-22 12:11 | PC.NURSE ---
Dr. Fitzgerald notified of critical ptt of 203.1, he gave verbal orders to stop heparin gtt for 2 hours and recheck ptt in 2 hours. Then call him with the results.
--- NOTE | 2020-05-22 12:16 | PC.NURSE ---
Heparin drip was stopped at this time because PTT was 203.1. Doctor ordered to stop it and then redraw in 2 hours. Patient is A&Ox3. Resting comfortably in bed at this time.
--- NOTE | 2020-05-22 13:58 | PM.PN ---
Subjective Subjective: Interval history: Patient reports abdominal pain, distention. Currently denies vomiting. No fever or chills. Denies chest pain, shortness of breath, cough, palpitations Medications: Reviewed: Yes Medication Review Details: Generic Name Dose Route Start Last Admin Trade Name Freq PRN Reason Stop Dose Admin Famotidine 20 mg 05/21/20 23:45 05/22/20 11:55 Famotidine 20 Mg /2 Ml Inj IVP 20 mg Q12H YAHIR Administration Heparin Sodium (Be ef Lung) 0 unit 05/22/20 03:01 05/22/20 04:44 Heparin 5,000 Un it/Ml Inj 1 Ml IV 5,500 unit PRN PRN Administration Heparin weight-ba se protocol Protocol Sodium Chloride 500 mls @ 75 mls/ hr 05/22/20 00:15 05/22/20 07:32 Sodium Chloride 0.9% IV 75 mls/hr .Q6H40M YAHIR Administration Morphine Sulfate 2 mg 05/21/20 23:57 05/22/20 11:54 Morphine 4 Mg/Ml Sdv 1 Ml IVP 2 mg Q4H PRN Administration SEVERE PAIN Phenol 3 spray 05/22/20 02:53 05/22/20 07:39 Phenol Oral Spra y 177 Ml MUCOUS MEM 3 spray Q2H PRN Administration SORE THROAT Vitals/I&O/Wt Last Vital Signs Temp 97.0 F L 05/22/20 10:35 Pulse 65 05/22/20 10:35 Resp 16 05/22/20 11:54 BP 105/61 05/22/20 10:35 Pulse Ox 95 05/22/20 11:54 05/21/20 05/22/20 05/22/20 22:59 06:59 14:59 Intake Total 1000 / 1000 497.5 / 497.5 Balance 1000 / 1000 497.5 / 497.5 Weight last 48 hrs Weight 103.419 kg Physical Exam Narrative: EXAM NARRATIVE: Awake alert oriented. No acute distress. Mood and affect are appropriate. Responses are adequate. Skin is warm and dry. Moist mucous membranes. Neck supple. No JVD Eyes PERRL, extraocular muscles are intact Lungs are clear to auscultation bilaterally. No wheezes or crackles. No respiratory distress Heart S1, S2, regular Abdomen is distended, tender to touch, bowel sounds are present. No rebound or guarding. NG tube. No significant output currently. Left lower quadrant colostomy bag. Extremities no calf tenderness or peripheral cyanosis. Data : 05/22/20 05:30 05/22/20 05:30 A&P Assessment and plan (1) Abdominal pain: Status: Acute (2) Peripheral neuropathy: Status: Acute (3) Obstructive sleep apnea: Status: Acute (4) Restless leg syndrome: Status: Acute (5) Psoriatic arthritis: Status: Acute (6) Immunosuppression: Status: Acute (7) Pulmonary embolism: Status: Acute (8) Chronic post-traumatic stress disorder: Status: Acute Abdominal Pain due to suspected Partial SBO - CT abd/pelvis - Mildly dilated SB loops in RLQ - S/p NG placement in ER - to LIS - NPO - NS at 75 cc/hr - Consult surgery in am - Pain control Right moderate hydrouretronephrosis due to above - Can consider renal US once above resolved - Can also consider urology consult - Monitor u/o Hx of Colon Cancer s/p colectomy/colostomy - In remission - hx of stage 3 - GS consulted Hx of Recurrent Pulmonary embolism - On Eliquis prior to arrival - Given possible need for surgical intervention - Started on Heparin got - If no surgical intervention planned can resume eliquis Obstructive sleep apnea - On CPAP QHS Psoriatic arthritis on immunosuppression - On Enbrel / Mtx Polyneuropathy w/ demyelinating features GI prophylaxis - Pepcid 20 mg IV BID DVT prophylaxis - Heparin drip Additional Medical Problems - Alcoholism / Hx of Cocaine dependence - Chronic kidney disease stage 2-3 - Restless leg syndrome [place] Small bowel obstruction versus ileus. Has history of colon cancer and colon resection. NPO. IV fluids. NG tube. Pain management as needed. Surgical consult. Appreciate Dr. Connelly's input. Hydronephrosis and hydroureter probably due to #1. Associated acute kidney injury. Currently improved renal function. Continue monitoring. Acute kidney injury on top of chronic kidney disease stage II-III probably secondary to obstructive uropathy and dehydration secondary to #1. Improved renal function with IV fluids. Continue monitoring. Avoid nephrotoxic medications. History of PE. Home Eliquis is on hold. Currently on heparin drip. Remote history of EtOH. No evidence of withdrawals. The plan of care was discussed with the patient. She verbalized understanding and agreement. Attestations Medical Necessity Statement*: Patient has small bowel obstruction. Requires IV fluids and close monitoring. Coding Level of Care Code Acute Check Services Clerk for Chg Fwd Diagnoses Abdominal pain R10.9 Peripheral neuropathy G62.9 Obstructive sleep apnea G47.33 Restless leg syndrome G25.81 Psoriatic arthritis L40.50 Immunosuppression D89.9 Pulmonary embolism I26.99 Chronic post-traumatic stress disorder F43.12
[2020-05-22] MEDS: sodium chloride 0.9% 1,000 ML 75 ML IV (14:16)
[2020-05-22 15:33] LABS: Partial Thromboplastin Time 57.8 SECONDS (23.9-36.7)
[2020-05-22] MEDS: Fleet Enema 133 mL Enema XX (15:52)
--- NOTE | 2020-05-22 15:55 | PC.NURSE ---
Fleets enema given per Dr's orders. A small amount of formed round brown stool flushed from stoma. Patient tolerated well.
--- NOTE | 2020-05-22 16:21 | PC.NURSE ---
PTT was drawn at 1419 and the result still says pending. Lab called spoke to Roma who states she will check on it.
--- NOTE | 2020-05-22 16:31 | PC.NURSE ---
Per verbal order from Dr. Fitzgerald restart Heparin dosing at 20 mls an hour and then recheck PTT in 6 hours and use the results to adjust the protocol from that PTT and continue with the protocol.
[2020-05-22] MEDS: heparin drip 25,000 UNIT/500 ML PREMIX 20 UNIT IV (16:48)
--- NOTE | 2020-05-22 19:16 | PC.NURSE ---
Report to Natalya MAXWELL at this time.
--- NOTE | 2020-05-22 19:26 | PC.NURSE ---
Dr. Connelly at bedside at this time.
--- NOTE | 2020-05-22 19:44 | PM.CONSULT ---
Providers/Reason For Consult Consulting Physican/Specialty*: Maurilio Fitzgerald Reason for Consult*: Small bowel obstruction Attending Physician: Maurilio Fitzgerald Primary Care Provider: Ayan Jay MD History of Present Illness History of Present Illness Maura Hermosillo is a 50 year old female who had undergone APR for rectal cancer 12 years ago. Patient significant history of alcohol and drug abuse in the past. Patient states that she developed generalized abdominal pain mainly localized to the right side. Patient also had nausea, vomiting and states that her ostomy has been functioning. She was admitted to the hospital early this morning after CT scan had shown findings suggestive of ileus versus partial bowel obstruction. Since admission patient has an NG tube in place, still continues to have right lower quadrant pain. No significant output from the ostomy. Patient says that she has never had hospitalization for bowel obstruction in the past. Review of Systems General: Reports: 10 or more systems reviewed and unremarkable except in HPI and below Meds/Allergies Home Medications and Allergies Home Medications Medication Instructions Recorded Confirmed Last Taken Type apixaban 5 mg tablet 5 mg PO BID 04/04/19 05/21/20 05/21/20 13:00 History took both doses toda sumatriptan succinate 50 mg tablet 50 mg PO PRN 04/04/19 05/21/20 Unknown History insulin syringe-needle U-100 1 mL #100 each 08/10/19 05/21/20 Unknown Rx 30 gauge x 5/16 walker #1 each 12/14/19 05/21/20 Unknown Rx folic acid 1 mg tablet 1 mg PO DAILY #30 tab 12/28/19 05/21/20 Unknown Rx umeclidinium 62.5 mcg-vilanterol See Rx Instructions .ROUTE 01/01/20 05/21/20 Unknown Rx 25 mcg/actuation powdr for .COMPLEX #60 each inhalation hydroxyzine HCl 25 mg tablet 25 mg PO DAILY PRN #30 tab 04/11/20 05/21/20 05/21/20 Rx amoxicillin 875 mg-potassium 1 tab PO BID 5 Days #10 tab 05/14/20 05/21/20 05/19/20 Rx clavulanate 125 mg tablet pt states finished Vitamin B-12 1 tab PO DAILY 05/21/20 05/21/20 Unknown History etanercept [Enbrel] 50 mg SUBCUT Q7D 05/21/20 05/21/20 Unknown History fluoxetine See Rx Instructions .ROUTE .COMPLEX 05/21/20 05/21/20 05/21/20 13:00 History methotrexate sodium 25 mg IM Q7D 05/21/20 05/21/20 Unknown History nitroglycerin 0.4 mg SUBLINGUAL Q5M PRN 05/21/20 05/21/20 Unknown History pantoprazole [Protonix] 40 mg PO BID 05/21/20 05/21/20 05/21/20 07:00 History pregabalin [Lyrica] 100 mg PO TID 05/21/20 05/21/20 05/21/20 13:00 History quetiapine 400 mg PO BEDTIME 05/21/20 05/21/20 Unknown History ropinirole 4 mg PO BEDTIME 05/21/20 05/21/20 Unknown History Allergies Allergy/AdvReac Type Severity Reaction Status Date / Time coconut oil Allergy Severe anaphylaxis Verified 05/21/20 18:44 mushroom Allergy Severe trouble Verified 05/21/20 18:44 breathing duloxetine [From Cymbalta] Allergy dizziness,v Verified 05/21/20 18:44 omiting atorvastatin AdvReac does not Verified 05/21/20 18:44 want to take it Current Medications Current Medications Generic Name Dose Route Start Last Admin Trade Name Freq PRN Reason Stop Dose Admin Famotidine 20 mg 05/21/20 23:45 05/22/20 11:55 Famotidine 20 Mg/2 Ml Inj IVP 20 mg Q12H YAHIR Administration Heparin Sodium (Beef Lung) 0 unit 05/22/20 03:01 05/22/20 04:44 Heparin 5,000 Unit/Ml Inj 1 Ml IV 5,500 unit PRN PRN Administration Heparin weight-base protocol Protocol Heparin Sodium/Sodium Chloride 25,000 unit in 500 mls @ 0 mls/hr 05/22/20 03:15 05/22/20 16:48 Heparin Drip IV 9.67 unit/kg/hr .Q0M YAHIR 20 mls/hr Administration Protocol Per Protocol Sodium Chloride 1,000 mls @ 75 mls/hr 05/22/20 14:15 05/22/20 14:16 Sodium Chloride 0.9% IV 75 mls/hr .[id number] YAHIR Administration Morphine Sulfate 2 mg 05/21/20 23:57 05/22/20 16:05 Morphine 4 Mg/Ml Sdv 1 Ml IVP 2 mg Q4H PRN Administration SEVERE PAIN Phenol 3 spray 05/22/20 02:53 05/22/20 16:08 Phenol Oral Bailey 177 Ml MUCOUS MEM 3 spray Q2H PRN Administration SORE THROAT PFSH Acute PFSH: Medical History Alcohol dependence, in remission Chronic post-traumatic stress disorder CKD (chronic kidney disease) Cocaine dependence, in remission Lumbar radiculitis Obstructive sleep apnea Osteoarthritis of knees, bilateral Other stimulant dependence, in remission Psoriasis Psoriatic arthritis Rectal cancer Restless leg syndrome Surgical History Colostomy in place H/O tubal ligation H/O: hysterectomy History of resection of rectum Family History Other Cancer Social History Smoking and tobacco status: current every day smoker cigarettes Years cigarettes smoked: 46 [ Other cigarette details: Hx of 1PPD x 46 Years ] Quit status (tobacco): considering quitting Smoking risk assessment/counseling performed?: Yes Alcohol intake: current Alcohol intake frequency: holidays/special occasions only Counseling given: No Counseling given: No Lives independently: Yes Household members: none Marital status: Legally Current occupational status: disabled History of recent travel: No Current gender identity: Female Vitals/I&O/Wt Last Vital Signs Temp 98 F 05/22/20 19:42 Pulse 59 L 05/22/20 19:42 Resp 18 05/22/20 19:42 BP 98/58 05/22/20 19:42 Pulse Ox 90 05/22/20 19:42 05/22/20 05/22/20 05/22/20 06:59 14:59 22:59 Intake Total 997.5 / 997.5 0 / 997.5 Balance 997.5 / 997.5 0 / 997.5 Weight last 48 hrs Weight 228 lb Physical Exam Narrative: EXAM NARRATIVE: HEENT: Normocephalic Eye: Sclera /conjunctiva normal Abdomen: Soft to palpation, mildly tender right lower quadrant, ostomy left lower quadrant no significant flatus Neurological: Oriented to place person and time Skin: Intact, no lesions appreciated on gross exam A&P Assessment and plan (1) Abdominal pain: 50-year-old female status post abdominal resection for rectal cancer with colostomy who now presents with abdominal pain, nausea and vomiting with CT scan findings consistent with partial small bowel obstruction/ileus. I reviewed the CT abdomen pelvis performed yesterday which showed dilated small bowel loops measuring up to 3.9 cm. Patient also with a large amount of feces within the colon. Continue NG tube to 100 suction Abdomen series in the morning Fleets enema and soapsuds enema today Depending on abdominal x-ray tomorrow we will try some magnesium citrate if possible. Discussed with the patient that her bowel obstruction is most likely secondary to constipation/adhesions which are usually managed conservatively with bowel rest and NG tube. If there is no improvement in the next 72 to 96 hours then we will need to repeat the CT scan and consider surgical options. 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
[2020-05-22 23:13] LABS: Partial Thromboplastin Time 55.7 SECONDS (23.9-36.7)
[2020-05-23] VITALS (8 sets, daily range): BP systolic 100–113; BP diastolic 65–74; PULSE 54–63; RESP 16–30; TEMP 36.1–37.1; O2SAT 90–96
[2020-05-23] MEDS: famotidine 20 mg/2 mL INJ IVP ×2 (00:11→13:52)
--- NOTE | 2020-05-23 00:39 | PC.NURSE ---
21:30 Soap suds enema administered, approximately 400 ml in with approximately 200 ml retained. Patient tolerated procedure well.
[2020-05-23] MEDS: morphine 4 mg/mL SDV 1 mL 2 MG IVP ×2 (00:58→06:36)
--- NOTE | 2020-05-23 06:00 | XR_ITS ---
WS: [id number] Exam: XR abdomen min 2V [id number] Date/Time of Exam: 05/23/2020 6:00 AM Reason For Exam: sbo No bowel obstruction or free air. Numerous surgical clips in the left abdomen. A colostomy stoma and bag superimpose the left lower quadrant of the abdomen and left pelvis. Visualized organ margins are intact. Bony structures appear normal. XR/XR abdomen min 2V [id number] IMPRESSION: 1. No acute abdominal process. 2. Postoperative changes in the left lower abdomen with the colostomy.
[2020-05-23 06:15] LABS: Basophils # 0.1 10^3/uL (0.0-0.1); Basophils % 0.9 %; Eosinophils # 0.2 10^3/uL (0.0-0.8); Eosinophils % 2.3 %; Hematocrit 39.9 % (37.0-47.0); Hemoglobin 13.2 g/dL (11.5-15.3); Lymphocytes # 1.9 10^3/uL (0.8-4.8); Lymphocytes % 29.1 %; Mean Corpuscular HGB Conc 33.1 g/dL (30.0-36.0); Mean Corpuscular Hemoglobin 32.8 pg (28.0-34.0); Mean Corpuscular Volume 99.3 fL (81-99); Mean Platelet Volume 10.1 fL (7.4-10.4); Monocytes # 0.5 10^3/uL (0.2-0.9); Monocytes % 7.2 %; Neutrophils # 3.87 10^3/uL (1.8-7.7); Neutrophils % 60.2 %; Nucleated Red Blood Cells % 0 %; Platelet Count 209 10^3/cmm (130-400); Red Blood Count 4.02 10^6/uL (4.1-5.3); Red Cell Distribution Width 13.2 % (12.1-15.1); White Blood Count 6.4 10^3/uL (4.0-10.0)
[2020-05-23 06:29] LABS: Partial Thromboplastin Time 59.4 SECONDS (23.9-36.7)
[2020-05-23] MEDS: heparin drip 25,000 UNIT/500 ML PREMIX 20 UNIT IV (06:30)
[2020-05-23 06:38] LABS: Albumin Level 3.6 g/dL (3.5-5.2); Anion Gap 12.9 (5-19); Blood Urea Nitrogen 11 mg/dL (6-20); Calcium 8.1 mg/dL (8.5-10.5); Carbon Dioxide 26 mmol/L (22-29); Chloride 105 mmol/L (98-107); Glomerular Filtration Rate 87.9 mL/min (90-130); Glucose 85 mg/dL (65-115); Phosphorus 3.6 mg/dL (2.5-4.5); Potassium 3.9 mmol/L (3.5-5.1); Sodium 140 mmol/L (136-145)
[2020-05-23] MEDS: sodium chloride 0.9% 1,000 ML 75 ML IV (06:41)
--- NOTE | 2020-05-23 09:00 | PC.NURSE ---
Patient pulled her NG tube out this morning around 6:[address] Connelly round at this time and states that it is oaky to leave her NG tube out at this time. Patient to be started on a clear liquid diet.
--- NOTE | 2020-05-23 10:34 | P.PN_ITS ---
Subjective Subjective: Interval history: Patient has been doing well, pulled the NG tube, no significant output from the ostomy, no nausea or vomiting, still has mild right lower quadrant pain Vitals/I&O/Wt Last Vital Signs Temp 97.8 F 05/23/20 07:48 Pulse 59 L 05/23/20 07:48 Resp 16 05/23/20 07:48 BP 109/65 05/23/20 07:48 Pulse Ox 93 05/23/20 07:48 05/22/20 05/23/20 05/23/20 22:59 06:59 14:59 Intake Total 0 / 2271.5 1274 / 2271.5 Balance 0 / 2271.5 1274 / 2271.5 Weight last 48 hrs Weight 228 lb Physical Exam Narrative: EXAM NARRATIVE: Abdomen: Soft, nondistended, tender right lower quadrant, no guarding or rigidity Data : 05/23/20 05:51 05/23/20 05:51 A&P Assessment and plan (1) Abdominal pain: 50-year-old female admitted with abdominal pain and findings concerning for small bowel obstruction. Abdominal series today shows resolution of the dilated air-fluid levels. Patient appears to have large amount of stool throughout the colon. No evidence of peritonitis. 2 bottles of magnesium citrate Milk of molasses enema through the ostomy Start clear liquid diet Lactulose 15 cc p.o. twice daily Ambulate ad william. 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
--- NOTE | 2020-05-23 11:00 | PC.CHAP ---
Pastoral Care Encounter/Spiritual Assessment Type of Contact [] Declined student affairs vice president visit [] Patient/Family/Request visit [] Outpatient visit [] Follow-up visit [] Physician referral [] Code/Alert [x] Routine visit [] Staff referral [] Actively dying [] Patient sleeping [] Family support [] [] Out of room [] Palliative care [] [x] Receiving care in room [] Pre-surgical visit [] Trauma [] Long length of stay [] ICU visit [] Other: short term Relational/Emotional Strength [x] Patient feels connected with others/family/visitors/staff [] Distress [] Loneliness/isolation [] Abandonment Spirituality of Patient [x] Person of Jaqueline [] Attends Temple of their Jaqueline [x] Believes in Prayer [] Reads Bible or Sikh materials [] There are Spiritual issues to be addressed Stain Sprayer Interventions [x] Prayer [x] Active listening [x] Non-anxious presence [x] Spiritual/emotional support [] Crisis/trauma care [x] Spiritual counseling [] Bereavement support [] Provided bereavement packet [] Provided Bible/devotional materials [] Provided toy/stuffed animal, coloring book to patient or family member [] Provided Communion [] Anointing/[place] [] Salvation [x] Completed spiritual assessment [] Other: Impact on Illness or Injury [] Angry [x] Fearful [] Anxious [] Often cries [] Exhaustion [] Unable to work [] Unable to attend episcopalian [] Unable to walk/stand [] Unable to read [] Unable to drive [] Unable to eat/drink [] Unable to sleep [] Unable to be with family [] Patient intubated [] Other: Summary serve pain no bowl movement, going home to family Time spent with patient 10 mins
[2020-05-23] MEDS: lactulose oral liq 20 gm/30 mL UDC PO (11:16)
[2020-05-23] MEDS: magnesium citrate Btl 296 mL PO (11:16)
[2020-05-23] MEDS: ondansetron 2 mg/ML SDV 2 mL 4 MG IVP (11:26)
--- NOTE | 2020-05-23 11:55 | P.PN_ITS ---
Subjective Subjective: Interval history: Patient has been doing well, pulled the NG tube, no significant output from the ostomy, no nausea or vomiting, still has mild right lower quadrant pain. Denies fever or chills. No nausea or vomiting. No chest pain, shortness of breath, cough, palpitations. Medications: Reviewed: Yes Medication Review Details: Generic Name Dose Route Start Last Admin Trade Name Freq PRN Reason Stop Dose Admin Famotidine 20 mg 05/21/20 23:45 05/23/20 00:11 Famotidine 20 Mg /2 Ml Inj IVP 20 mg Q12H YAHIR Administration Heparin Sodium (Be ef Lung) 0 unit 05/22/20 03:01 05/22/20 04:44 Heparin 5,000 Un it/Ml Inj 1 Ml IV 5,500 unit PRN PRN Administration Heparin weight-ba se protocol Protocol Heparin Sodium/Sod ium Chloride 25,000 unit in 50 0 mls @ 0 mls/hr 05/22/20 03:15 05/23/20 06:30 Heparin Drip IV 9.67 unit/kg/hr .Q0M YAHIR 20 mls/hr Administration Protocol Per Protocol Sodium Chloride 1,000 mls @ 75 ml s/hr 05/22/20 14:15 05/23/20 06:41 Sodium Chloride 0.9% IV 75 mls/hr .[id number] YAHIR Administration Lactulose 20 gm 05/23/20 10:45 05/23/20 11:16 Lactulose Oral L iq 20 Gm/30 Ml Udc PO 20 gm Q12H YAHIR Administration Morphine Sulfate 2 mg 05/21/20 23:57 05/23/20 06:36 Morphine 4 Mg/Ml Sdv 1 Ml IVP 2 mg Q4H PRN Administration SEVERE PAIN Ondansetron HCl 4 mg 05/21/20 23:57 05/23/20 11:26 Ondansetron 2 Mg /Ml Sdv 2 Ml IVP 4 mg Q8H PRN Administration vomiting, or N/V if npo Phenol 3 spray 05/22/20 02:53 05/22/20 16:08 Phenol Oral Spra y 177 Ml MUCOUS MEM 3 spray Q2H PRN Administration SORE THROAT Vitals/I&O/Wt Last Vital Signs Temp 97.2 F L 05/23/20 11:12 Pulse 54 L 05/23/20 11:12 Resp 17 05/23/20 11:12 BP 112/74 05/23/20 11:12 Pulse Ox 95 05/23/20 11:12 05/22/20 05/23/20 05/23/20 22:59 06:59 14:59 Intake Total 0 / 997.5 1274 / 2271.5 Balance 0 / 997.5 1274 / 2271.5 Weight last 48 hrs Weight 103.419 kg Physical Exam Narrative: EXAM NARRATIVE: Awake alert oriented. No acute distress. Mood and affect are appropriate. Responses are adequate. Skin is warm and dry. Moist mucous membranes. Neck supple. No JVD Eyes PERRL, extraocular muscles are intact Lungs are clear to auscultation bilaterally. No wheezes or crackles. No respiratory distress Heart S1, S2, regular Abdomen is distended, tender to touch, bowel sounds are present. No rebound or guarding. Extremities no calf tenderness or peripheral cyanosis. Data : 05/23/20 05:51 05/23/20 05:51 A&P Assessment and plan (1) Abdominal pain: Status: Acute (2) Peripheral neuropathy: Status: Acute (3) Obstructive sleep apnea: Status: Acute (4) Restless leg syndrome: Status: Acute (5) Psoriatic arthritis: Status: Acute (6) Immunosuppression: Status: Acute (7) Pulmonary embolism: Status: Acute (8) Chronic post-traumatic stress disorder: Status: Acute Abdominal Pain due to suspected Partial SBO - CT abd/pelvis - Mildly dilated SB loops in RLQ - S/p NG placement in ER - to LIS - NPO - NS at 75 cc/hr - Consult surgery in am - Pain control Right moderate hydrouretronephrosis due to above - Can consider renal US once above resolved - Can also consider urology consult - Monitor u/o Hx of Colon Cancer s/p colectomy/colostomy - In remission - hx of stage 3 - GS consulted Hx of Recurrent Pulmonary embolism - On Eliquis prior to arrival - Given possible need for surgical intervention - Started on Heparin got - If no surgical intervention planned can resume eliquis Obstructive sleep apnea - On CPAP QHS Psoriatic arthritis on immunosuppression - On Enbrel / Mtx Polyneuropathy w/ demyelinating features GI prophylaxis - Pepcid 20 mg IV BID DVT prophylaxis - Heparin drip Additional Medical Problems - Alcoholism / Hx of Cocaine dependence - Chronic kidney disease stage 2-3 - Restless leg syndrome [place] Small bowel obstruction/Ileus. Associated constipation. Has history of colon cancer and colon resection. Pain management as needed. NG tube is discontinued, starting p.o. intake per Dr. Connelly. Will receive an MRI. Ambulation is encouraged. Appreciate Dr. Connelly's input. Hydronephrosis and hydroureter probably due to #1. Associated acute kidney injury. Currently improved renal function. Continue monitoring. Outpatient eval. Fluoroscopy will be provided. Acute kidney injury on top of chronic kidney disease stage II-III probably secondary to obstructive uropathy and dehydration secondary to #1. Improved renal function with IV fluids. Continue monitoring. Avoid nephrotoxic medicati ons. History of PE. We will resume her home Eliquis this evening. We will stop heparin drip prior to that. Remote history of EtOH. No evidence of withdrawals. The plan of care was discussed with the patient. She verbalized understanding and agreement. Discussed with multidisciplinary team. Discussed with Dr. Connelly. 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
--- NOTE | 2020-05-23 12:35 | PC.NURSE ---
Dr. Edward Fitzgerald gave a verbal order to stop Heparin drip at 7:00 pm then give Eliquis at 2100.
[2020-05-23 12:39] LABS: Partial Thromboplastin Time 50.3 SECONDS (23.9-36.7)
--- NOTE | 2020-05-23 13:25 | PC.NURSE ---
DR. mahan from Edward Fitzgerald do not bolus patient with Heparin just increase rate.
--- NOTE | 2020-05-23 13:30 | PC.NURSE ---
Patient had a large amount of stool out at this time. 500 mls of liquid stool and about 100 mls of formed stool. Patient states at this time that the pain is gone and she is ready to go home. Patient refused Milk and Molasses enema and refused second dose of Mag Citrate stating, It was the coffee I drank. If you guys would have just given me coffee I would have went on my own it does it every time. He is going to let me go home now right? Explained to patient that I am not sure if she will be able to go home today or tomorrow. Patient states, I should get to go home today. ?I do not have any more pain so it is all gone. Updated patient that we will have to wait for Dr. Connelly to decide.
--- NOTE | 2020-05-23 15:30 | PC.NURSE ---
Patient requesting leave at this time. Dr. Connelly and Dr. Fitzgerald both notified.
--- NOTE | 2020-05-23 15:30 | PC.NURSE ---
Dr. Connelly requests that patient stay and do another bottle of Mag Citrate and discharge in the morning. Patient still wants to go home and states, I will go home against medical advice if I need to and I will not hold any of you guys responsible. Encouraged patient to stay be she insists on going home. Dr. Connelly stated it is up to Dr. Fitzgerald as he is the primary. Dr. Fitzgerald notified again that patient is wanting to leave.
--- NOTE | 2020-05-23 15:45 | PC.NURSE ---
Dr. Fitzgerald at bedside to speak with patient. Dr. Fitzgerald encouraged patient to stay until tomorrow morning. Patient insists on going home. Dr. Fitzgerald states he will release patient but that she need to start her Eliquis tonight and she needs to follow up with Dr. Shi regarding some swelling of her kidneys. Patient verbalized understanding and states that she will.
--- NOTE | 2020-05-23 16:03 | PM.DCS ---
Discharge Providers Date of Admission: 05/22/20 06:23 Date of Discharge: May 23, 2020 Attending Provider at Admission: Rosario Flores Attending Provider at Discharge: Maurilio Fitzgerald Primary Care Provider: Ayan Jay MD Diagnoses at Discharge Discharge Diagnosis (1) Abdominal pain: Status: Acute (2) Peripheral neuropathy: Status: Acute (3) Obstructive sleep apnea: Status: Acute (4) Restless leg syndrome: Status: Acute (5) Psoriatic arthritis: Status: Acute (6) Immunosuppression: Status: Acute (7) Pulmonary embolism: Status: Acute (8) Chronic post-traumatic stress disorder: Status: Acute Reason for Visit Reason for Visit: ABD PAIN SEVERE UPPER/LOWER R QUAD Hospital Course Hospital Course The patient was admitted for small bowel obstruction/Ileus. Associated constipation. Has history of colon cancer and colon resection. Currently resolved. The patient is adamant to go home. Does not want to remain in the hospital for 1 more day of observation. Denies any active complaints. Appreciate Dr. Connelly's input. Hydronephrosis and hydroureter probably due to #1. Associated acute kidney injury. Renal function normalized. Outpatient eval. referral is provided to see Dr. James. I also gave her a copy of the CT report for her records and to remind her. She promised to follow-up with Dr. James. Acute kidney injury on top of chronic kidney disease stage II-III probably secondary to obstructive uropathy and dehydration secondary to #1. Resolved. Avoid nephrotoxic medications. History of PE. She will resume Eliquis tonight. Her discontinuing heparin drip. Remote history of EtOH. No evidence of withdrawals. The plan of care was discussed with the patient. She verbalized understanding and agreement. Discharge Data Data Completed and Pending: Completed Studies During Hospitalization Category Date Time Status CT abdomen pelvis w con* [id number] Stat Cat Scan 05/21/20 20:15 Completed XR abdomen min 2V [id number] Routine Exams 05/23/20 06:00 Completed XR chest 1V deana ble [id number] Routine Exams 05/22/20 07:51 Completed Pending at discharge Category Date Time Status Magnesium AM LABS Lab 05/24/20 04:00 Ordered Platelet Count Q2 D Lab 05/24/20 04:00 Ordered Platelet Count Q2 D Lab 05/26/20 04:00 Ordered Renal Function Pa nelly AM LABS Lab 05/24/20 04:00 Ordered Labs from last 24 hours 05/23/20 05/23/20 05/23/20 12:09 05:51 05:51 WBC RBC Hgb Hct MCV MCH MCHC RDW Plt Count MPV Neut % (Auto) Lymph % (Auto) [place] % (Auto) Eos % (Auto) Baso % (Auto) Neut # (Auto) Lymph # (Auto) [place] # (Auto) Eos # (Auto) Baso # (Auto) Nucleated RBC % (a uto) Nucleated RBCs # APTT 50.3 H 59.4 H Sodium 140 Potassium 3.9 Chloride 105 Carbon Dioxide 26 Anion Gap 12.9 BUN 11 Creatinine 0.7 GFR Calculation 87.9 L Glucose 85 Calcium 8.1 L Phosphorus 3.6 Magnesium Albumin 3.6 05/23/20 05/23/20 05/22/20 05:51 05:51 22:55 WBC 6.4 RBC 4.02 L Hgb 13.2 Hct 39.9 MCV 99.3 H MCH 32.8 MCHC 33.1 RDW 13.2 Plt Count 209 MPV 10.1 Neut % (Auto) 60.2 Lymph % (Auto) 29.1 [place] % (Auto) 7.2 Eos % (Auto) 2.3 Baso % (Auto) 0.9 Neut # (Auto) 3.87 Lymph # (Auto) 1.9 [place] # (Auto) 0.5 Eos # (Auto) 0.2 Baso # (Auto) 0.1 Nucleated RBC % (a uto) 0 Nucleated RBCs # 0.0 APTT 55.7 H Sodium Potassium Chloride Carbon Dioxide Anion Gap BUN Creatinine GFR Calculation Glucose Calcium Phosphorus Magnesium 2.0 Albumin 05/22/20 14:19 WBC RBC Hgb Hct MCV MCH MCHC RDW Plt Count MPV Neut % (Auto) Lymph % (Auto) [place] % (Auto) Eos % (Auto) Baso % (Auto) Neut # (Auto) Lymph # (Auto) [place] # (Auto) Eos # (Auto) Baso # (Auto) Nucleated RBC % (a uto) Nucleated RBCs # APTT 57.8 H D Sodium Potassium Chloride Carbon Dioxide Anion Gap BUN Creatinine GFR Calculation Glucose Calcium Phosphorus Magnesium Albumin Vitals: Last Vital Signs Temp 97.0 F L 05/23/20 15:16 Pulse 63 05/23/20 15:16 Resp 17 05/23/20 15:16 BP 104/70 05/23/20 15:16 Pulse Ox 96 05/23/20 15:16 Discharge Plan Discharge Patient Disposition: Home Condition: Stable Prescriptions: New lactulose 20 gram/30 mL Solution 20 g PO Q12H 10 Days Qty: 600 RF: 0 Continued amoxicillin-pot clavulanate [Augmentin] 875-125 mg tablet 1 tab PO BID 5 Days Qty: 10 RF: 0 Eliquis 5 mg tablet 5 mg PO BID RF: 0 sumatriptan succinate [Imitrex] 50 mg tablet 50 mg PO PRN RF: 0 hydroxyzine HCl 25 mg tablet 25 mg PO DAILY PRN (Reason: anxiety) Qty: 30 RF: 2 (DME) insulin syringe-needle U-100 [TRUEplus Insulin] 1 mL 30 gauge x 5/16 syringe See Rx Instructions .ROUTE .MEDSUPPLY Qty: 100 RF: 2 (DME) DME: Walker Unit See Rx Instructions .ROUTE .MEDSUPPLY Qty: 1 RF: 0 folic acid 1 mg tablet 1 mg PO DAILY Qty: 30 RF: 0 umeclidinium-vilanterol [Anoro Ellipta] 62.5-25 mcg/actuation blister with device See Rx Instructions .ROUTE .COMPLEX Qty: 60 RF: 3 Protonix 40 mg Tablet,Delayed Release (Dr/Ec) 40 mg PO BID RF: 0 nitroglycerin 0.4 mg Tablet, Sublingual 0.4 mg SUBLINGUAL Q5M PRN (Reason: Chest Pain) RF: 0 Lyrica 100 mg Capsule 100 mg PO TID RF: 0 Vitamin B-12 1 tab PO DAILY RF: 0 methotrexate sodium 25 mg/mL solution 25 mg IM Q7D RF: 0 fluoxetine 20 mg capsule See Rx Instructions .ROUTE .COMPLEX RF: 0 ropinirole 4 mg tablet 4 mg PO BEDTIME RF: 0 Enbrel 50 mg/mL (1 mL) syringe 50 mg SUBCUT Q7D RF: 0 quetiapine 400 mg tablet 400 mg PO BEDTIME RF: 0 Discharge Orders: Discharge Order (Routine); Ordered 05/23/20 Ordered By: Maurilio Fitzgerald Other Ambulatory Orders: Basic Metabolic Panel (Routine) Timeframe: 1 Week Facility: [facility] - Location: Lab - Main Lab Ordered By: Maurilio Fitzgerald Referrals: Andrey James MD [Physician] - (he hydronephrosis) Ayan Jay MD [Primary Care Provider] - 7-10 days Discharge Diet: Usual diet Discharge Activity: Resume usual activity Patient Instructions: Hydronephrosis (DC), Bowel Obstruction (DC) Activity Restrictions/Additional Instructions: Please come back to emergency room if you develop any new abdominal pain, constipation, blood in the stool, nausea or vomiting, fever or chills, problems with urination or back pain, fever or chills or any other new complaints. Please follow-up with kidney specialist. Referral is provided. Discharge Attestations Time Spent in Discharge Care*: greater than 30 min Quality Metrics Clinical Quality Measures During this hospital stay, did patient experience: None Coding Level of Care Code Acute Chg FW DC note Diagnoses Abdominal pain R10.9 Peripheral neuropathy G62.9 Obstructive sleep apnea G47.33 Restless leg syndrome G25.81 Psoriatic arthritis L40.50 Immunosuppression D89.9 Pulmonary embolism I26.99 Chronic post-traumatic stress disorder F43.12
--- NOTE | 2020-05-23 16:31 | PC.NURSE ---
Patient IV's removed and patient tolerated well. Reviewed patient discharge with patient at this time. Patient verbalized understanding of calling Dr. James's office and to follow up with her primary care Dr. Jay in 7 to 10 days. Patient verbalized understanding of prescriptions at [facility] to apple picker to continue with eliminating her bowels. Patient is A&Ox3. Respirations even and non-labored on room air. Patient wheel chaired to private car.
== END 2020-05-23 16:30 | disposition home or self-care (01) | DRG 389 ==
LOC: ER 22:31 → MEDSURG 22:59
PROVIDERS: Admitting Provider Hospitalist; Emergency Provider Family Medicine; PCP Family Medicine; Visit Provider Internal Medicine
DX: K56.600 Partial intestinal obstruction, unspecified as to cause (principal); N13.1 Hydronephrosis with ureteral stricture, not elsewhere classified; N17.9 Acute kidney failure, unspecified; K56.7 Ileus, unspecified; F10.21 Alcohol dependence, in remission; F14.11 Cocaine abuse, in remission; G25.81 Restless legs syndrome; N18.30 Chronic kidney disease, stage 3 unspecified; Z86.711 Personal history of pulmonary embolism; Z79.01 Long term (current) use of anticoagulants; G47.33 Obstructive sleep apnea (adult) (pediatric); L40.50 Arthropathic psoriasis, unspecified; Z79.899 Other long term (current) drug therapy; Z85.038 Personal history of other malignant neoplasm of large intestine; Z93.3 Colostomy status; F43.12 Post-traumatic stress disorder, chronic; M17.0 Bilateral primary osteoarthritis of knee; F17.210 Nicotine dependence, cigarettes, uncomplicated; K59.00 Constipation, unspecified; E86.0 Dehydration
CPT/HCPCS: 36415; 71045; 74019; 74177; 80053; 80069; 80307; 81003; 83605; 83690; 83735; 85025; 85730; 99291; G0378; J1170; J1644; J2270; J2405; J3490; J7030; J7040; Q9967

== ENCOUNTER → 2020-06-03 08:21 | Outpatient (BNVA) | payer MEDICARE, MEDICAID, SELFPAY | PROVIDERS: PCP Family Medicine; Visit Provider Urology | DX: N13.30 Unspecified hydronephrosis (principal); N17.9 Acute kidney failure, unspecified | CPT/HCPCS: 81003 ==

== ENCOUNTER 2020-06-06 09:50 | Outpatient (CLI) | payer MEDICARE, MEDICAID, SELFPAY ==
--- NOTE | 2020-06-06 09:58 | US_ITS ---
WS: [id number] ULTRASOUND RENAL TECHNIQUE: Ultrasound examination of both kidneys. CLINICAL INFORMATION: ACUTE KIDNEY INJURY COMPARISON: None. FINDINGS: RIGHT: Right kidney is normal in size and appearance. Echogenicity: Normal. Cortical thickness: 1.7 cm; Normal. Hydronephrosis: None. Perinephric fluid: None. Right kidney measures: 11.3 cm x 5.6 cm x 4.2 cm. LEFT: Left kidney is normal in size and appearance. Echogenicity: Normal. Cortical thickness: 1.1 cm; Normal. Hydronephrosis: None. Perinephric fluid: None. Left kidney measures: 10.2 cm x 5.1 cm x 4.2 cm. Normal visualized aorta. Normal bladder. US/US renal BI* [id number] IMPRESSION: 1. No hydronephrosis in either kidney. 2. Normal bladder
== END 2020-06-06 09:51 | disposition home or self-care (01) ==
PROVIDERS: PCP Family Medicine; Visit Provider Urology
DX: N17.9 Acute kidney failure, unspecified (principal)
CPT/HCPCS: 76770; 81003

== ENCOUNTER → 2020-06-14 07:54 | Outpatient (BNVA) | payer MEDICARE, MEDICAID, SELFPAY | PROVIDERS: PCP Family Medicine; Visit Provider Psychiatry & Neurology Psychiatry | DX: F33.40 Major depressive disorder, recurrent, in remission, unspecified (principal); F41.9 Anxiety disorder, unspecified; F14.21 Cocaine dependence, in remission; F10.21 Alcohol dependence, in remission; F15.21 Other stimulant dependence, in remission; G25.81 Restless legs syndrome | CPT/HCPCS: 99214 ==

== ENCOUNTER → 2020-07-05 07:27 | Outpatient (BNVA) | payer MEDICARE, MEDICAID, SELFPAY | PROVIDERS: PCP Family Medicine; Visit Provider Psychiatry & Neurology Psychiatry | DX: F33.40 Major depressive disorder, recurrent, in remission, unspecified (principal); F10.21 Alcohol dependence, in remission; F15.21 Other stimulant dependence, in remission; F14.21 Cocaine dependence, in remission; F17.200 Nicotine dependence, unspecified, uncomplicated; F41.9 Anxiety disorder, unspecified; G25.81 Restless legs syndrome; G47.33 Obstructive sleep apnea (adult) (pediatric) | CPT/HCPCS: 99214 ==

== ENCOUNTER → 2020-07-18 14:25 | Outpatient (BNVA) | payer MEDICARE, MEDICAID, SELFPAY | PROVIDERS: PCP Family Medicine; Visit Provider Internal Medicine | DX: L40.9 Psoriasis, unspecified (principal); M79.673 Pain in unspecified foot; N17.9 Acute kidney failure, unspecified; Z79.899 Other long term (current) drug therapy; F17.210 Nicotine dependence, cigarettes, uncomplicated | CPT/HCPCS: 99214 ==

== ENCOUNTER 2020-07-18 15:27 | Outpatient (CLI) | payer MEDICARE, MEDICAID, SELFPAY ==
--- NOTE | 2020-07-18 15:38 | XR_ITS ---
WS: [id number] Right ankle, 2 views, 07/18/2020 Clinical Data: N17.9 - Acute kidney failure, unspecified Comparison: None. Findings: No fractures or dislocations are seen. The ankle mortise is normal. The talus and calcaneus are unrem arkable. No soft tissue swelling over the medial or lateral malleolus is seen. There is an Achilles spur and a plantar spur. XR/XR ankle RT 2V [id number] Impression: Negative right ankle.
--- NOTE | 2020-07-18 15:38 | XR_ITS ---
WS: [id number] Right foot, 2 views, 07/18/2020 Clinical Data: M25.50 - Pain in unspecified joint Comparison: Right foot, 12/21/2017. Findings: No fractures or dislocations are seen. No bone destruction or erosion is noted. The joint spaces and soft tissues are normal. No periarticular demineralization or calcifications are seen. XR/XR foot RT 2V [id number] Impression: Negative right foot.
== END 2020-07-18 15:28 | disposition home or self-care (01) ==
PROVIDERS: PCP Family Medicine; Visit Provider Internal Medicine
DX: M25.50 Pain in unspecified joint (principal); N17.9 Acute kidney failure, unspecified
CPT/HCPCS: 73600; 73620; 99213

== ENCOUNTER → 2020-07-26 08:01 | Outpatient (BNVA) | payer MEDICARE, MEDICAID, SELFPAY | PROVIDERS: PCP Family Medicine; Visit Provider Psychiatry & Neurology Psychiatry | DX: F33.0 Major depressive disorder, recurrent, mild (principal); G47.33 Obstructive sleep apnea (adult) (pediatric); G25.81 Restless legs syndrome; F14.21 Cocaine dependence, in remission; F15.21 Other stimulant dependence, in remission; F10.21 Alcohol dependence, in remission | CPT/HCPCS: 99214 ==

== ENCOUNTER 2020-07-30 08:14 | Emergency (ER) | payer MEDICARE, MEDICAID, SELFPAY ==
[2020-07-30 08:15] VITALS: BP 138/73; PULSE 74; RESP 19; O2SAT 96; BMI 34.9
--- NOTE | 2020-07-30 08:30 | ED_ITS ---
Documented by User: GOOD Choudhury 07/31/20 13:25 HPI - Abdominal Pain General: Chief Complaint: Abdominal Pain Stated Complaint: ABD PAIN Time Seen by Provider: 07/30/20 08:16 History of Present Illness: HPI narrative: Patient is a 50-year-old female comes to the ED with abdominal pain. Patient has a past medical history of colon cancer and has a colostomy bag. Patient says she is also had a total hysterectomy. Patient says abdominal pain started yesterday morning. Last night pain got worse and she also had nausea and vomiting as well. she had multiple episodes of emesis last night. abdominal pain is in the right lower quadrant and she describes the pain as a dull ache with episodes of sharp pain that is a 10 out of 10. Colostomy has had normal output and no acute change. Denies any fever or chills. Associated Symptoms: Reports nausea and vomiting; Denies chills, constipation, diarrhea, dysuria, fever(s), hematochezia and he maturia Review of Systems Const: Denies: fever(s), chills or fatigue Eyes: Denies: change in vision or eye discomfort ENMT: Denies: throat pain, odynophagia, nasal discharge or nasal congestion Card: Denies: chest pain, palpitations, edema, swelling of feet/ankles, dyspnea on exertion or orthopnea Resp: Denies: dyspnea, productive cough or non-productive cough GI: Reports: abdominal pain, nausea and vomiting; Denies: diarrhea, constipation or hematochezia : Denies: flank pain, dysuria or hematuria Musc: Denies: neck pain, back pain or extremity swelling Skin/Breast: Denies: rash or new lesions Neuro: Denies: headache(s), numbness in extremities or weakness in extremities PFSH ED PFSH: Medical History Alcohol dependence, in remission Chronic post-traumatic stress disorder CKD (chronic kidney disease) Cocaine dependence, in remission Hydronephrosis of right kidney Immunosuppression Lumbar radiculitis Obstructive sleep apnea Osteoarthritis of knees, bilateral Other stimulant dependence, in remission Peripheral neuropathy Psoriasis Psoriatic arthritis Pulmonary embolism Rectal cancer Restless leg syndrome Surgical History Colostomy in place H/O tubal ligation H/O: hysterectomy History of resection of rectum Family History Other Cancer Social History Smoking and tobacco status: current every day smoker cigarettes Years cigarettes smoked: 46 [ Other cigarette details: Hx of 1PPD x 46 Years ] Quit status (tobacco): considering quitting Smoking risk assessment/counseling performed?: Yes Alcohol intake: current Alcohol intake frequency: holidays/special occasions only Counseling given: No Counseling given: No Lives independently: Yes Household members: none Marital status: Legally Current occupational status: disabled History of recent travel: No Current gender identity: Female Physical Exam Const: COMMON NORMALS: patient oriented x3 and alert GENERAL APPEARANCE: cooperative; not comfortable (Uncomfortable due to pain) NUTRITIONAL APPEARANCE: overweight HENMT: COMMON NORMALS: normocephalic HEAD & SCALP: normocephalic MOUTH: Normal oral and palatal mucosa present THROAT: posterior oropharynx normal and uvula midline Neck/C-Spine: COMMON NORMALS: supple GENERAL: Yes normal visual inspection Resp: COMMON NORMALS: normal respiratory effort, No retractions, No use of accessory muscles and clear to auscultation bilaterally AUSCULTATION: clear to auscultation bilaterally Cardio: COMMON NORMALS: regular rate, regular rhythm, S1 normal heart sound present, S2 normal heart sound present, No gallops present (Cardio), No clicks present (Cardio), No murmurs present (Cardio) and Peripheral pulses 2+ throughout RATE: regular rate RHYTHM: regular rhythm HEART SOUNDS: S1 normal heart sound present and S2 normal heart sound present PERIPHERAL PULSES: Peripheral pulses 2+ throughout GI: COMMON NORMALS: Normal to inspection, nondistended, normoactive bowel sounds present, Soft to palpation and no masses INSPECTION: Yes GI ostomy present (Colostomy present.) PALPATION: Yes Soft to palpation and Yes Tenderness to palpation present (GI) Details: RLQ (Positive McBurney's point) : COMMON NORMALS: Yes no CVA tenderness BLADDER/KIDNEY EXAM: Yes no CVA tenderness Back/Pelvis: COMMON NORMALS: no CVA tenderness Extremity: GENERAL: Yes normal exam except as noted Neuro: COMMON NORMALS: patient oriented x3 SENSORIUM/ORIENTATION: Yes alert GAIT: Yes Normal gait present Skin: GENERAL SKIN EXAM: dry skin Course Reevaluation(s): Reevaluation #1: Patient's symptoms were controlled with IV fluids, Reglan and morphine. Vital Signs: Vital signs: Vital Signs Pulse Rate 84 07/30/20 12:34 Respiratory Rate 20 H 07/30/20 12:34 Blood Pressure 109/54 07/30/20 12:34 Pulse Oximetry 97 07/30/20 12:34 MDM - Abdominal Pain MDM Narrative: Medical decision making narrative: Patient is a 50-year-old female comes to the ED with abdominal pain, nausea vomiting. Patient has a past medical history of colon cancer and has a colostomy bag. Patient says her colostomy bag has been having normal output. In the ED patient appears to be in no acute distress but does have some mild abdominal pain. She had some tenderness to the right lower quadrant of her abdomen. Patient's vitals are stable. White blood cell count 12.1 but the rest of CBC, UA and CMP were unremarkable. Lipase normal. CT of abdomen pelvis showed no real acute change from her last CT back in May 21, 2020. Findings were suspicious for adynamic ileus. Patient was given about 2 L of IV fluids, Zofran and morphine and her symptoms were controlled. I spoke with Dr. Aguilar about patient case and he recommended patient be discharged with close follow-up with PCP. Patient was diagnosed with an adynamic ileus and discharged home with a written prescription for hydrocodone 5/325 8 tablets and some Reglan. Patient was told to do clear liquid diet then slowly advance as tolerated. Follow-up with PCP in 5 days for reevaluation. Return to ED precautions given. Patient understood agree with plan. Lab Data: Attestation: I reviewed the patient's lab results. Labs: Lab Results 07/30/20 07/30/20 07/30/20 Range/Units 08:39 08:39 10:55 WBC Cancelled 12.1 H Corrected WBC Cancelled RBC Cancelled 4.15 Hgb Cancelled 13.4 Hct Cancelled 40.6 MCV Cancelled 97.8 MCH Cancelled 32.3 MCHC Cancelled 33.0 RDW Cancelled 14.0 Plt Count Cancelled 251 MPV Cancelled 10.1 Gran % Cancelled Neut % (Auto) Cancelled 79.5 Lymph % (Auto) Cancelled 14.4 [place] % (Auto) Cancelled 4.7 Eos % (Auto) Cancelled 0.2 Baso % (Auto) Cancelled 0.5 Neut # (Auto) Cancelled 9.64 H Lymph # (Auto) Cancelled 1.8 [place] # (Auto) Cancelled 0.6 Eos # (Auto) Cancelled 0.0 Baso # (Auto) Cancelled 0.1 Absolute Gran (aut o) Cancelled Nucleated RBC % (a uto) Cancelled 0 Nucleated RBCs # Cancelled 0.0 Sodium 140 (136-145) mmol/L Potassium 4.3 (3.5-5.1) mmol/L Chloride 100 (98-107) mmol/L Carbon Dioxide 21 L (22-29) mmol/L Anion Gap 23.3 H (5-19) BUN 15 (6-20) mg/dL Creatinine 0.8 (0.5-0.9) mg/dL GFR Calculation 75.3 L (90-130) mL/min Glucose 107 (65-115) mg/dL Calculated Osmolal ity 291 (285-295) mOsm/k g Calcium 9.3 (8.5-10.5) mg/dL Total Bilirubin 0.7 (0.15-1.2) mg/dL AST 31 (0-32) U/L ALT 60 H (0-33) U/L Alkaline Phosphata se 82 (35-105) IU/L Total Protein 6.7 (6.6-8.7) g/dL Albumin 4.3 (3.5-5.2) g/dL Globulin 2.4 (1.3-4.6) g/dL Lipase 13 (13-60) U/L Urine Color (Yellow) Urine Appearance (CLEAR) Urine pH (5-7) Ur Specific Gravit y (1.005-1.030) Urine Protein (Negative) Urine Glucose (UA) (Normal) Urine Ketones (Negative) Urine Blood (Negative) Urine Nitrate (Negative) Urine Bilirubin (Negative) Urine Urobilinogen (Negative) mg/dL Ur Leukocyte Queta ase (Negative) Urine RBC (0-2) /hpf Urine WBC (0-5) /hpf Ur Squamous Epith Cells (0-5) /hpf Amorphous Sediment Urine Bacteria (NONE) /hpf 07/30/20 Range/Units 11:07 WBC Corrected WBC RBC Hgb Hct MCV MCH MCHC RDW Plt Count MPV Gran % Neut % (Auto) Lymph % (Auto) [place] % (Auto) Eos % (Auto) Baso % (Auto) Neut # (Auto) Lymph # (Auto) [place] # (Auto) Eos # (Auto) Baso # (Auto) Absolute Gran (aut o) Nucleated RBC % (a uto) Nucleated RBCs # Sodium (136-145) mmol/L Potassium (3.5-5.1) mmol/L Chloride (98-107) mmol/L Carbon Dioxide (22-29) mmol/L Anion Gap (5-19) BUN (6-20) mg/dL Creatinine (0.5-0.9) mg/dL GFR Calculation (90-130) mL/min Glucose (65-115) mg/dL Calculated Osmolal ity (285-295) mOsm/k g Calcium (8.5-10.5) mg/dL Total Bilirubin (0.15-1.2) mg/dL AST (0-32) U/L ALT (0-33) U/L Alkaline Phosphata se (35-105) IU/L Total Protein (6.6-8.7) g/dL Albumin (3.5-5.2) g/dL Globulin (1.3-4.6) g/dL Lipase (13-60) U/L Urine Color Yellow (Yellow) Urine Appearance Clear (CLEAR) Urine pH 5 (5-7) Ur Specific Gravit y 1.015 (1.005-1.030) Urine Protein Neg (Negative) Urine Glucose (UA) Norm (Normal) Urine Ketones Negative (Negative) Urine Blood Neg (Negative) Urine Nitrate Negative (Negative) Urine Bilirubin Neg (Negative) Urine Urobilinogen Norm (Negative) mg/dL Ur Leukocyte Queta ase Negative (Negative) Urine RBC None (0-2) /hpf Urine WBC None (0-5) /hpf Ur Squamous Epith Cells 0-4 H (0-5) /hpf Amorphous Sediment Not Reportable Urine Bacteria Trace (NONE) /hpf Imaging Data ^: CT Abd/Pel: Attestation: I personally reviewed and interpreted this imaging study as follows: Radiologist's impression: [address] [address] [address] Scan Report Signed Patient: Maura Hermosillo Unit #: [id number] : 1970 ct#:[id number] Age/Sex: 50 / F ADM Date: 07/30/20 Loc: ER Room/Bed: Attending Dr: Ordering Provider/Ordering MD: Gustabo Salamanca Date of Service: 07/30/20 Procedure(s): CT abdomen pelvis w con* [id number] Accession Number(s): [id number] Report Number: [id number] WS: [id number] CT ABDOMEN PELVIS TECHNIQUE: Contrast-enhanced CT of the abdomen and pelvis with coronal and sagittal reformatted images. CLINICAL INFORMATION: RLQ tenderness with n/v COMPARISON: May 21, 2020 and September 14, 2019 DLP: 1996.[address] scans at [facility] use at least one of these dose optimization techniques: automated exposure control; mA and/or kV adjustment per patient size (includes targeted exams where dose is matched to clinical indication); or iterative reconstruction. FINDINGS: Prior postoperative changes distal colon resection with anastomosis. Left lower quadrant colostomy is unchanged. Dilated loops of fluid-filled small bowel similar in appearance to May 21, 2020. Fluid-filled small bowel is most prominent in the right abdomen right lower quadrant and pelvis. Postoperative changes hysterectomy. Urine distended bladder. Diffuse fatty infiltration liver. Portal vein and splenic vein are patent. Normal gallbladder. Normal GE junction. Normal spleen. Adrenal glands are normal. Normal renal parenchymal enhancement. Fatty atrophy of the pancreas. Moderate right hydronephrosis unchanged from previous. Normal renal parenchymal enhancement. Normal caliber abdominal aorta. CT/CT abdomen pelvis w con* [id number] IMPRESSION: 1. Slightly dilated loops of fluid-filled small bowel unchanged since May 22, 2019. Dilated loops more prominent in the right lower quadrant and pelvis. 2. Findings Suspicious for adynamic ileus versus partial obstruction. 3. Prior postoperative changes distal colon resection with anastomosis. Stable Left lower quadrant ostomy. No obstruction at the ostomy site. 4. Moderate right hydronephrosis is unchanged. 5. Diffuse fatty infiltration of the liver. 6. Urine distended bladder. 7. Previous hysterectomy. 8. No other change from previous. Dictated By: Jose Barlow MD Signed By: Jose Barlow MD Signed Date/Time: 07/30/20 1006 DD/ 0954 Discharge Plan Discharge Patient Disposition: Home Clinical Impression: Adynamic ileus Condition: Stable Prescriptions: New Reglan 10 mg tablet 10 mg PO Q6H PRN (Reason: nausea and vomiting) Qty: 20 RF: 0 No Action diclofenac sodium [Voltaren] 1 % gel 2 g topical QID Qty: 100 RF: 0 Enbrel 50 mg/mL (1 mL) syringe 50 mg SUBCUT Q7D 30 Days Qty: 5 RF: 5 Eliquis 5 mg tablet 5 mg PO BID RF: 0 sumatriptan succinate [Imitrex] 50 mg tablet 50 mg PO PRN RF: 0 fluoxetine 40 mg capsule 80 mg PO QAM Qty: 60 RF: 5 ropinirole 4 mg tablet 4 mg PO BEDTIME Qty: 30 RF: 5 quetiapine 200 mg tablet 200 mg PO DAILY Qty: 30 RF: 5 buspirone 15 mg tablet 15 mg PO BID Qty: 60 RF: 0 (DME) insulin syringe-needle U-100 [TRUEplus Insulin] 1 mL 30 gauge x 5/16 syringe See Rx Instructions .ROUTE .MEDSUPPLY Qty: 100 RF: 2 umeclidinium-vilanterol [Anoro Ellipta] 62.5-25 mcg/actuation blister with device See Rx Instructions .ROUTE .COMPLEX Qty: 60 RF: 3 folic acid 1 mg tablet 1 mg PO DAILY Qty: 30 RF: 1 pantoprazole [Protonix] 40 mg Tablet,Delayed Release (Dr/Ec) 40 mg PO BID RF: 0 nitroglycerin 0.4 mg Tablet, Sublingual 0.4 mg SUBLINGUAL Q5M PRN (Reason: Chest Pain) RF: 0 pregabalin [Lyrica] 100 mg Capsule 100 mg PO TID RF: 0 Vitamin B-12 1 tab PO DAILY RF: 0 methotrexate sodium 25 mg/mL solution 25 mg IM Q7D RF: 0 cyanocobalamin (vitamin B-12) 1,000 mcg/mL solution 1,000 mcg IM Q30D RF: 0 quetiapine 300 mg tablet 300 mg PO BEDTIME RF: 0 Discharge Orders: Discharge ED (Routine); Ordered 07/30/20 Ordered By: Gustabo Salamanca Referrals: Ayan Jay MD [Primary Care Provider] - Discharge Diet: Advance as tolerated and Clear Liquid Patient Instructions: Ileus (ED), Opioid Safety Activity Restrictions/Additional Instructions: Follow-up with your PCP in 5 days for reevaluation. Start with clear liquid diet for the next 24 to 48 hours then slowly advance as tolerated. Take medications as prescribed. Return to the ER or your medical provider if condition worsens. Please read and understand discharge instructions. Thank you for choosing [facility] for your healthcare needs today. Please realize this is an emergency room and that we are providing you with a medical screening exam and this may not be complete and all inclusive of all the testing and or work up that you may need to determine your ailment or severity of your illness. It is very important that you follow up as instructed or that you return to the Emergency Department should you have concerns or if your condition changes or worsens in any way. Coding Level of Care Code ED Elevator Troubleshooter for Chg Fwd Exam Comprehensive Documented by User: Marv Aguilar DO 07/31/20 14:05 HPI - Abdominal Pain General: Chief Complaint: Abdominal Pain Stated Complaint: ABD PAIN Time Seen by Provider: 07/30/20 08:16 [facility] ED PFSH: Medical History Alcohol dependence, in remission Chronic post-traumatic stress disorder CKD (chronic kidney disease) Cocaine dependence, in remission Hydronephrosis of right kidney Immunosuppression Lumbar radiculitis Obstructive sleep apnea Osteoarthritis of knees, bilateral Other stimulant dependence, in remission Peripheral neuropathy Psoriasis Psoriatic arthritis Pulmonary embolism Rectal cancer Restless leg syndrome Surgical History Colostomy in place H/O tubal ligation H/O: hysterectomy History of resection of rectum Family History Other Cancer Social History Smoking and tobacco status: current every day smoker cigarettes Years ci garettes smoked: 46 [ Other cigarette details: Hx of 1PPD x 46 Years ] Quit status (tobacco): considering quitting Smoking risk assessment/counseling performed?: Yes Alcohol intake: current Alcohol intake frequency: holidays/special occasions only Counseling given: No Counseling given: No Lives independently: Yes Household members: none Marital status: Legally Current occupational status: disabled History of recent travel: No Current gender identity: Female Course Vital Signs: Vital signs: Vital Signs Pulse Rate 84 07/30/20 12:34 Respiratory Rate 20 H 07/30/20 12:34 Blood Pressure 109/54 07/30/20 12:34 Pulse Oximetry 97 07/30/20 12:34 MDM - Abdominal Pain MDM Narrative: Medical decision making narrative: Case reviewed with GOOD Choudhury agree with assessment and plan Lab Data: Labs: Lab Results 07/30/20 07/30/20 07/30/20 Range/Units 08:39 08:39 10:55 WBC Cancelled 12.1 H Corrected WBC Cancelled RBC Cancelled 4.15 Hgb Cancelled 13.4 Hct Cancelled 40.6 MCV Cancelled 97.8 MCH Cancelled 32.3 MCHC Cancelled 33.0 RDW Cancelled 14.0 Plt Count Cancelled 251 MPV Cancelled 10.1 Gran % Cancelled Neut % (Auto) Cancelled 79.5 Lymph % (Auto) Cancelled 14.4 [place] % (Auto) Cancelled 4.7 Eos % (Auto) Cancelled 0.2 Baso % (Auto) Cancelled 0.5 Neut # (Auto) Cancelled 9.64 H Lymph # (Auto) Cancelled 1.8 [place] # (Auto) Cancelled 0.6 Eos # (Auto) Cancelled 0.0 Baso # (Auto) Cancelled 0.1 Absolute Gran (aut o) Cancelled Nucleated RBC % (a uto) Cancelled 0 Nucleated RBCs # Cancelled 0.0 Sodium 140 (136-145) mmol/L Potassium 4.3 (3.5-5.1) mmol/L Chloride 100 (98-107) mmol/L Carbon Dioxide 21 L (22-29) mmol/L Anion Gap 23.3 H (5-19) BUN 15 (6-20) mg/dL Creatinine 0.8 (0.5-0.9) mg/dL GFR Calculation 75.3 L (90-130) mL/min Glucose 107 (65-115) mg/dL Calculated Osmolal ity 291 (285-295) mOsm/k g Calcium 9.3 (8.5-10.5) mg/dL Total Bilirubin 0.7 (0.15-1.2) mg/dL AST 31 (0-32) U/L ALT 60 H (0-33) U/L Alkaline Phosphata se 82 (35-105) IU/L Total Protein 6.7 (6.6-8.7) g/dL Albumin 4.3 (3.5-5.2) g/dL Globulin 2.4 (1.3-4.6) g/dL Lipase 13 (13-60) U/L Urine Color (Yellow) Urine Appearance (CLEAR) Urine pH (5-7) Ur Specific Gravit y (1.005-1.030) Urine Protein (Negative) Urine Glucose (UA) (Normal) Urine Ketones (Negative) Urine Blood (Negative) Urine Nitrate (Negative) Urine Bilirubin (Negative) Urine Urobilinogen (Negative) mg/dL Ur Leukocyte Queta ase (Negative) Urine RBC (0-2) /hpf Urine WBC (0-5) /hpf Ur Squamous Epith Cells (0-5) /hpf Amorphous Sediment Urine Bacteria (NONE) /hpf 07/30/20 Range/Units 11:07 WBC Corrected WBC RBC Hgb Hct MCV MCH MCHC RDW Plt Count MPV Gran % Neut % (Auto) Lymph % (Auto) [place] % (Auto) Eos % (Auto) Baso % (Auto) Neut # (Auto) Lymph # (Auto) [place] # (Auto) Eos # (Auto) Baso # (Auto) Absolute Gran (aut o) Nucleated RBC % (a uto) Nucleated RBCs # Sodium (136-145) mmol/L Potassium (3.5-5.1) mmol/L Chloride (98-107) mmol/L Carbon Dioxide (22-29) mmol/L Anion Gap (5-19) BUN (6-20) mg/dL Creatinine (0.5-0.9) mg/dL GFR Calculation (90-130) mL/min Glucose (65-115) mg/dL Calculated Osmolal ity (285-295) mOsm/k g Calcium (8.5-10.5) mg/dL Total Bilirubin (0.15-1.2) mg/dL AST (0-32) U/L ALT (0-33) U/L Alkaline Phosphata se (35-105) IU/L Total Protein (6.6-8.7) g/dL Albumin (3.5-5.2) g/dL Globulin (1.3-4.6) g/dL Lipase (13-60) U/L Urine Color Yellow (Yellow) Urine Appearance Clear (CLEAR) Urine pH 5 (5-7) Ur Specific Gravit y 1.015 (1.005-1.030) Urine Protein Neg (Negative) Urine Glucose (UA) Norm (Normal) Urine Ketones Negative (Negative) Urine Blood Neg (Negative) Urine Nitrate Negative (Negative) Urine Bilirubin Neg (Negative) Urine Urobilinogen Norm (Negative) mg/dL Ur Leukocyte Queta ase Negative (Negative) Urine RBC None (0-2) /hpf Urine WBC None (0-5) /hpf Ur Squamous Epith Cells 0-4 H (0-5) /hpf Amorphous Sediment Not Reportable Urine Bacteria Trace (NONE) /hpf Discharge Plan Discharge Patient Disposition: Home Clinical Impression: Adynamic ileus Condition: Stable Prescriptions: New Reglan 10 mg tablet 10 mg PO Q6H PRN (Reason: nausea and vomiting) Qty: 20 RF: 0 No Action diclofenac sodium [Voltaren] 1 % gel 2 g topical QID Qty: 100 RF: 0 Enbrel 50 mg/mL (1 mL) syringe 50 mg SUBCUT Q7D 30 Days Qty: 5 RF: 5 Eliquis 5 mg tablet 5 mg PO BID RF: 0 sumatriptan succinate [Imitrex] 50 mg tablet 50 mg PO PRN RF: 0 fluoxetine 40 mg capsule 80 mg PO QAM Qty: 60 RF: 5 ropinirole 4 mg tablet 4 mg PO BEDTIME Qty: 30 RF: 5 quetiapine 200 mg tablet 200 mg PO DAILY Qty: 30 RF: 5 buspirone 15 mg tablet 15 mg PO BID Qty: 60 RF: 0 (DME) insulin syringe-needle U-100 [TRUEplus Insulin] 1 mL 30 gauge x 5/16 syringe See Rx Instructions .ROUTE .MEDSUPPLY Qty: 100 RF: 2 umeclidinium-vilanterol [Anoro Ellipta] 62.5-25 mcg/actuation blister with device See Rx Instructions .ROUTE .COMPLEX Qty: 60 RF: 3 folic acid 1 mg tablet 1 mg PO DAILY Qty: 30 RF: 1 pantoprazole [Protonix] 40 mg Tablet,Delayed Release (Dr/Ec) 40 mg PO BID RF: 0 nitroglycerin 0.4 mg Tablet, Sublingual 0.4 mg SUBLINGUAL Q5M PRN (Reason: Chest Pain) RF: 0 pregabalin [Lyrica] 100 mg Capsule 100 mg PO TID RF: 0 Vitamin B-12 1 tab PO DAILY RF: 0 methotrexate sodium 25 mg/mL solution 25 mg IM Q7D RF: 0 cyanocobalamin (vitamin B-12) 1,000 mcg/mL solution 1,000 mcg IM Q30D RF: 0 quetiapine 300 mg tablet 300 mg PO BEDTIME RF: 0 Discharge Orders: Discharge ED (Routine); Ordered 07/30/20 Ordered By: Gustabo Salamanca Referrals: Ayan Jay MD [Primary Care Provider] - Discharge Diet: Advance as tolerated and Clear Liquid Patient Instructions: Ileus (ED), Opioid Safety Activity Restrictions/Additional Instructions: Follow-up with your PCP in 5 days for reevaluation. Start with clear liquid diet for the next 24 to 48 hours then slowly advance as tolerated. Take medications as prescribed. Return to the ER or your medical provider if condition worsens. Please read and understand discharge instructions. Thank you for choosing [facility] for your healthcare needs today. Please realize this is an emergency room and that we are providing you with a medical screening exam and this may not be complete and all inclusive of all the testing and or work up that you may need to determine your ailment or severity of your illness. It is very important that you follow up as instructed or that you return to the Emergency Department should you have concerns or if your condition changes or worsens in any way. Coding Level of Care Code ED Elevator Troubleshooter for Vicente Fwd Exam Comprehensive
--- NOTE | 2020-07-30 08:36 | CT_ITS ---
WS: [id number] CT ABDOMEN PELVIS TECHNIQUE: Contrast-enhanced CT of the abdomen and pelvis with coronal and sagittal reformatted image s. CLINICAL INFORMATION: RLQ tenderness with n/v COMPARISON: May 21, 2020 and September 14, 2019 DLP: 1996.[address] scans at [facility] use at least one of these dose optimization techniques: automat ed exposure control; mA and/or kV adjustment per patient size (includes targeted exams where dose is matched to clinical indication); or iterative reconstruction. FINDINGS: Prior postoperative changes distal colon resection with anastomosis. Left lower quadrant colostomy is unchanged. Dilated loops of fluid-filled small bowel similar in appearance to May 21, 2020. Fluid- filled small bowel is most prominent in the right abdomen right lower quadrant and pelvis. Postoperat esther changes hysterectomy. Urine distended bladder. Diffuse fatty infiltration liver. Portal vein and splenic vein are patent. Normal gallbladder. Normal GE junction. Normal spleen. Adrenal glands are normal. Normal renal parenchymal enhancement. Fatty a trophy of the pancreas. Moderate right hydronephrosis unchanged from previous. Normal renal parenchym al enhancement. Normal caliber abdominal aorta. CT/CT abdomen pelvis w con* [id number] IMPRESSION: 1. Slightly dilated loops of fluid-filled small bowel unchanged since April. Dilated loops more prominent in the right lower quadrant and pelvis. 2. Findings Suspicious for adynamic ileus versus partial obstruction. 3. Prior postoperative changes distal colon resection with anastomosis. Stable Left lower quadrant ostomy. No obstruction at the ostomy site. 4. Moderate right hydronephrosis is unchanged. 5. Diffuse fatty infiltration of the liver. 6. Urine distended bladder. 7. Previous hysterectomy. 8. No other change from previous.
[2020-07-30 08:43] VITALS: RESP 22; O2SAT 96
[2020-07-30] MEDS: morphine 4 mg/mL SDV 1 mL IVP (08:43)
[2020-07-30] MEDS: ondansetron 2 mg/ML SDV 2 mL 4 MG IVP (08:43)
[2020-07-30] MEDS: sodium chloride 0.9% 1,000 ML 999 ML IV ×2 (08:45→11:34)
[2020-07-30 09:10] VITALS: RESP 22
[2020-07-30] MEDS: morphine 4 mg/mL SDV 1 mL 2 MG IVP (09:10)
[2020-07-30 09:22] LABS: Alanine Aminotransferase 60 U/L (0-33); Albumin Level 4.3 g/dL (3.5-5.2); Alkaline Phosphatase 82 IU/L (35-105); Aspartate Amino Transferase 31 U/L (0-32); Blood Urea Nitrogen 15 mg/dL (6-20); Calcium 9.3 mg/dL (8.5-10.5); Carbon Dioxide 21 mmol/L (22-29); Chloride 100 mmol/L (98-107); Globulin 2.4 g/dL (1.3-4.6); Glomerular Filtration Rate 75.3 mL/min (90-130); Glucose 107 mg/dL (65-115); Lipase 13 U/L (13-60); Osmolality Calculated 291 mOsm/kg (285-295); Sodium 140 mmol/L (136-145); Total Bilirubin 0.7 mg/dL (0.15-1.2); Total Protein 6.7 g/dL (6.6-8.7)
[2020-07-30] MEDS: iohexol 350 mg/mL 100 mL Btl IV (09:22)
[2020-07-30 09:23] LABS: Anion Gap 23.3 (5-19); Potassium 4.3 mmol/L (3.5-5.1)
[2020-07-30] MEDS: metoclopramide 5 mg/mL SDV 2 mL 10 MG IVP (09:42)
[2020-07-30 09:44] VITALS: BP 117/81; PULSE 82; RESP 20; O2SAT 95
[2020-07-30 11:12] LABS: Basophils # 0.1 10^3/uL (0.0-0.1); Basophils % 0.5 %; Eosinophils % 0.2 %; Hematocrit 40.6 % (37.0-47.0); Hemoglobin 13.4 g/dL (11.5-15.3); Lymphocytes # 1.8 10^3/uL (0.8-4.8); Lymphocytes % 14.4 %; Mean Corpuscular Hemoglobin 32.3 pg (28.0-34.0); Mean Corpuscular Volume 97.8 fL (81-99); Mean Platelet Volume 10.1 fL (7.4-10.4); Monocytes # 0.6 10^3/uL (0.2-0.9); Monocytes % 4.7 %; Neutrophils # 9.64 10^3/uL (1.8-7.7); Neutrophils % 79.5 %; Nucleated Red Blood Cells % 0 %; Platelet Count 251 10^3/cmm (130-400); Red Blood Count 4.15 10^6/uL (4.1-5.3); White Blood Count 12.1 10^3/uL (4.0-10.0)
[2020-07-30 11:31] LABS: Bilirubin Urine Neg (Negative); Blood Urine Neg (Negative); Glucose Urine UA Norm (Normal); Ketones Urine Negative (Negative); Leukocyte Esterase Urine Negative (Negative); Nitrate Urine Negative (Negative); Protein Urine Neg (Negative); Specific Gravity, Urine 1.015 (1.005-1.030); Urine Appearance Clear (CLEAR); Urine Color Yellow (Yellow); Urobilinogen Urine Norm (Negative); pH Urine 5 (5-7)
[2020-07-30 11:34] VITALS: RESP 18
[2020-07-30] MEDS: HYDROmorphone 1 mg/mL INJ 1 mL IVP (11:34)
[2020-07-30 11:36] LABS: Bacteria Urine TRACE /hpf; Squamous Epithelial Cell Urine 0-4 /hpf (0-5)
[2020-07-30 11:37] LABS: Add Urine Culture? No
[2020-07-30 12:34] VITALS: BP 109/54; PULSE 84; RESP 20; O2SAT 97
== END 2020-07-30 12:35 | disposition home or self-care (01) ==
PROVIDERS: Emergency Provider Physician Assistant; PCP Family Medicine
DX: K56.0 Paralytic ileus (principal); Z79.01 Long term (current) use of anticoagulants; Z79.4 Long term (current) use of insulin; Z85.048 Personal history of other malignant neoplasm of rectum, rectosigmoid junction, and anus; F17.210 Nicotine dependence, cigarettes, uncomplicated
CPT/HCPCS: 36415; 74177; 80053; 81001; 83690; 85025; 96361; 96374; 96375; 99284; J1170; J2270; J2405; J2765; J7030; Q9967

== ENCOUNTER 2020-08-05 12:10 | Emergency (ER) | payer MEDICARE, MEDICAID, SELFPAY ==
[2020-08-05 12:24] VITALS: BP 124/64; PULSE 77; RESP 18; TEMP 36.4; O2SAT 95; BMI 34.2
--- NOTE | 2020-08-05 14:00 | CT_ITS ---
WS: [id number] CT ABDOMEN AND PELVIS WITH CONTRAST HISTORY: Abdominal pain, possible obstruction. TECHNIQUE: Imaging performed of the abdomen and pelvis with IV contrast. Single phase imaging of the abdomen. Coronal and sagittal reformats are submitted. All CT scans at [facility] use at least one of these dose optimization techniques: automated exposure control; mA and/or kV adjustment per patient size (includes targeted exams where dose is matched to clinical indication); or iterativ e reconstruction. IV CONTRAST: Omnipaque 300; 95 mL IV. Oral contrast: No DLP: 1805.23 mGy.cm COMPARISON: 07/30/2020 Lower thorax: Mild scattered groundglass attenuation in the periphery of the lower lung hdz. Probably due to pneumonitis. Heart is normal size. No hiatal hernia. Liver/biliary system: Mild enlarged liver with steatosis. No bile duct dilatation. Gallbladder: Normal. No gallstones or wall thickening. No pericholecystic fluid. Pancreas: Normal size pancreas and pancreatic duct. No adjacent inflammation. Spleen: Normal size spleen. No mass or infarct. Adrenal glands: Normal. Right kidney: Normal. Left kidney: Normal. Aorta: Mild atherosclerosis with no aneurysm. Lymphadenopathy: None. Free fluid: None. GI tract: Presacral soft tissue thickening at the site of the prior surgery and stable over several p rior examinations. Surgical anastomosis in the distal colon is unchanged. LEFT lower quadrant ileosto my site. A distal anastomotic site in the mid small bowel. No obstruction. There is less fluid disten tion of the small bowel as compared to the prior examinations. Abdominal wall: LEFT lower quadrant ostomy site. Pelvis: Sacral soft tissue thickening with dystrophic calcifications and surgical clips. Unchanged ov er multiple prior examinations. Urinary bladder is not distended. Prior hysterectomy. Bones: Unremarkable. CT/CT abdomen pelvis w con* [id number] IMPRESSION: 1. No acute abdominal or pelvic abnormalities. 2. Previously described mild ileus has resolved. 3. LEFT lower quadrant ileostomy site in the presacral soft tissue thickening and surgical anastomotic sites are stable. 4. No ascites or adenopathy.
[2020-08-05] MEDS: morphine 4 mg/mL SDV 1 mL IVP ×2 (14:08→16:18)
[2020-08-05] MEDS: sodium chloride 0.9% 1,000 ML 999 ML IV (14:08)
[2020-08-05] MEDS: ondansetron 2 mg/ML SDV 2 mL 4 MG IVP (14:08)
[2020-08-05 14:19] LABS: Add Urine Microscopic? YES; Bilirubin Urine 1+ (Negative); Blood Urine Neg (Negative); Glucose Urine UA Norm (Normal); Ketones Urine Negative (Negative); Leukocyte Esterase Urine Negative (Negative); Nitrate Urine Negative (Negative); Protein Urine Neg (Negative); Urine Appearance Hazy (CLEAR); Urine Color Orange (Yellow); Urobilinogen Urine 1 mg/dL (Negative); pH Urine 5 (5-7)
[2020-08-05] MEDS: iohexol 300 mg/mL 100 mL Btl IV (14:23)
[2020-08-05 14:28] LABS: Add Urine Culture? No; Bacteria Urine TRACE /hpf; Mucus Urine 3+ /hpf; RBC Urine 0-4 /hpf (0-2); Squamous Epithelial Cell Urine 0-4 /hpf (0-5); Transitional Epi Cells Urine 0-4 /hpf
--- NOTE | 2020-08-05 14:34 | ED_ITS ---
HPI - Abdominal Pain General: Chief Complaint: Abdominal Pain Stated Complaint: sent by Dr.Mills emmanuel blockage Time Seen by Provider: 08/05/20 14:00 History of Present Illness: HPI narrative: 50-year-old female presents to the emergency room with complaint of abdominal pain. She states she was here last week a day and had abdominal pain CT showed an adynamic ileus but no acute obstruction. She was discharged home said since then she has not had any vomit ing she has had 1 bowel movement and not able to eat because of abdominal discomfort. She denies any dysuria urgency or frequency denies any chest pain or shortness of breath no fever. She is on apixaban has had small amounts of streaked blood in her colostomy bag she still is getting good gas output from her colostomy bag its inflated at the time of the exam. She is not had any large amounts of bleeding from the colostomy. MD elicited complaint: abdominal pain Onset (ago): week(s) Pain Consistency: constant Location: Diffuse Severity: moderate Quality: cramping Radiation: none Migration to: no migration Exacerbating factors: eating Relieving factors: rest Associated Symptoms: Reports anorexia, bloating, change in bowel habits and GI cramping; Denies belching, change in stool character, chills, coffee ground emesis, constipation, diarrhea, dyspepsia, dysuria, excessive flatus, fever(s), heartburn, hematochezia, hematuria, hematemesis, fecal incontinence, loose stools, melena, nausea, poor appetite, syncope and vomiting Review of Systems Const: Denies: fever(s) or chills ENMT: Denies: throat pain, ear or mastoid pain, nasal discharge or nasal congestion Card: Denies: syncope Resp: Denies: dyspnea, productive cough or non-productive cough GI: Reports: bloating, GI cramping and change in bowel habits; Denies: nausea, vomiting, hematemesis, coffee ground emesis, heartburn, diarrhea, constipation, belching, excessive flatus, fecal incontinence, change in stool character, hematochezia or melena : Denies: dysuria or hematuria Skin/Breast: Denies: rash or pruritus PFSH ED PFSH: Medical History Alcohol dependence, in remission Chronic post-traumatic stress disorder CKD (chronic kidney disease) Cocaine dependence, in remission Hydronephrosis of right kidney Immunosuppression Lumbar radiculitis Obstructive sleep apnea Osteoarthritis of knees, bilateral Other stimulant dependence, in remission Peripheral neuropathy Psoriasis Psoriatic arthritis Pulmonary embolism Rectal cancer Restless leg syndrome Surgical History Colostomy in place H/O tubal ligation H/O: hysterectomy History of resection of rectum Family History Other Cancer Social History Smoking and tobacco status: current every day smoker cigarettes Years cigarettes smoked: 46 [ Other cigarette details: Hx of 1PPD x 46 Years ] Quit status (tobacco): considering quitting Smoking risk assessment/counseling performed?: Yes Alcohol intake: current Alcohol intake frequency: holidays/special occasions only Counseling given: No Counseling given: No Lives independently: Yes Household members: none Marital status: Legally Current occupational status: disabled History of recent travel: No Current gender identity: Female Physical Exam Const: COMMON NORMALS: no acute distress GENERAL APPEARANCE: cooperative and comfortable ORIENTATION/CONSCIOUSNESS: Yes awake, Yes oriented to person, Yes oriented to place and Yes oriented to time HENMT: COMMON NORMALS: normocephalic, atraumatic, hearing grossly normal bilaterally and external ears normal HEAD & SCALP: normocephalic and atraumatic EXTERNAL EAR: Yes external ears normal Neck/C-Spine: COMMON NORMALS: no JVD Resp: COMMON NORMALS: normal respiratory effort, No retractions, No use of accessory muscles and clear to auscultation bilaterally AUSCULTATION: clear to auscultation bilaterally Cardio: COMMON NORMALS: no JVD, regular rate, regular rhythm and No murmurs present (Cardio) RATE: regular rate RHYTHM: regular rhythm GI: COMMON NORMALS: Soft to palpation and No hepatosplenomegaly present AUSCULTATION: Yes normoactive bowel sounds PALPATION: Yes Soft to palpation, No Tenderness to palpation present (GI), No Guarding due to palpation present (GI) and Yes No hepatosplenomegaly present Extremity: COMMON NORMALS: normal to inspection, capillary refill normal, no clubbing, cyanosis or edema, no calf tenderness and no pedal edema Neuro: SENSORIUM/ORIENTATION: Yes oriented to person, Yes oriented to place and Yes oriented to time Skin: COMMON NORMALS: no rashes or lesions noted GENERAL SKIN EXAM: no rashes or lesions noted Course Vital Signs: Vital signs: Vital Signs Temperature 97.6 F 08/05/20 16:27 Pulse Rate 77 08/05/20 12:24 Respiratory Rate 18 08/05/20 16:27 Blood Pressure 124/64 08/05/20 12:24 Pulse Oximetry 95 08/05/20 16:27 MDM - Abdominal Pain MDM Narrative: Medical decision making narrative: CT is negative. Will d ischarge home I called and discussed with Dr. Jay he will manage from this point. Reviewed the CT with him as well. Will supplement potassium here. Magnesium ordered Dr. Jay will manage magnesium and potassium and calcium replacements as needed through his office. Encourage patient to follow-up with him. Lab Data: Labs: Lab Results 08/05/20 08/05/20 08/05/20 Range/Units 14:05 14:20 14:20 WBC 6.0 (4.0-10.0) 10^3/ uL RBC 4.17 (4.1-5.3) 10^6/u L Hgb 13.6 (11.5-15.3) g/dL Hct 39.6 (37.0-47.0) % MCV 95.0 (81-99) fL MCH 32.6 (28.0-34.0) pg MCHC 34.3 (30.0-36.0) g/dL RDW 14.9 (12.1-15.1) % Plt Count 337 (130-400) 10^3/c mm MPV 10.2 (7.4-10.4) fL Neut % (Auto) 53.6 % Lymph % (Auto) 32.6 % [place] % (Auto) 9.7 % Eos % (Auto) 2.8 % Baso % (Auto) 1.0 % Neut # (Auto) 3.21 (1.8-7.7) 10^3/u L Lymph # (Auto) 2.0 (0.8-4.8) 10^3/u L [place] # (Auto) 0.6 (0.2-0.9) 10^3/u L Eos # (Auto) 0.2 (0.0-0.8) 10^3/u L Baso # (Auto) 0.1 (0.0-0.1) 10^3/u L Nucleated RBC % (a uto) 0 % Nucleated RBCs # 0.0 /100WBC Sodium (136-145) mmol/L Potassium (3.5-5.1) mmol/L Chloride (98-107) mmol/L Carbon Dioxide (22-29) mmol/L Anion Gap (5-19) BUN (6-20) mg/dL Creatinine (0.5-0.9) mg/dL GFR Calculation (90-130) mL/min Glucose (65-115) mg/dL Calculated Osmolal ity (285-295) mOsm/k g Lactic Acid 1.4 (0.5-2.2) mmol/L Calcium (8.5-10.5) mg/dL Magnesium (1.7-2.3) mg/dL Total Bilirubin (0.15-1.2) mg/dL AST (0-32) U/L ALT (0-33) U/L Alkaline Phosphata se (35-105) IU/L Total Protein (6.6-8.7) g/dL Albumin (3.5-5.2) g/dL Globulin (1.3-4.6) g/dL Lipase (13-60) U/L Urine Color [facility] (Yellow) Urine Appearance Hazy A (CLEAR) Urine pH 5 (5-7) Ur Specific Gravit y 1.020 (1.005-1.030) Urine Protein Neg (Negative) Urine Glucose (UA) Norm (Normal) Urine Ketones Negative (Negative) Urine Blood Neg (Negative) Urine Nitrate Negative (Negative) Urine Bilirubin 1+ H (Negative) Urine Urobilinogen 1 H (Negative) mg/dL Ur Leukocyte Queta ase Negative (Negative) Urine RBC 0-4 H (0-2) /hpf Urine WBC None (0-5) /hpf Ur Squamous Epith Cells 0-4 H (0-5) /hpf Ur Transition Epit h Cell 0-4 /hpf Amorphous Sediment Not Reportable Urine Bacteria Trace (NONE) /hpf Urine Mucus 3+ /hpf 08/05/20 08/05/20 Range/Units 14:20 14:20 WBC (4.0-10.0) 10^3/ uL RBC (4.1-5.3) 10^6/u L Hgb (11.5-15.3) g/dL Hct (37.0-47.0) % MCV (81-99) fL MCH (28.0-34.0) pg MCHC (30.0-36.0) g/dL RDW (12.1-15.1) % Plt Count (130-400) 10^3/c mm MPV (7.4-10.4) fL Neut % (Auto) % Lymph % (Auto) % [place] % (Auto) % Eos % (Auto) % Baso % (Auto) % Neut # (Auto) (1.8-7.7) 10^3/u L Lymph # (Auto) (0.8-4.8) 10^3/u L [place] # (Auto) (0.2-0.9) 10^3/u L Eos # (Auto) (0.0-0.8) 10^3/u L Baso # (Auto) (0.0-0.1) 10^3/u L Nucleated RBC % (a uto) % Nucleated RBCs # /100WBC Sodium 143 (136-145) mmol/L Potassium 3.3 L (3.5-5.1) mmol/L Chloride 105 (98-107) mmol/L Carbon Dioxide 26 (22-29) mmol/L Anion Gap 15.3 (5-19) BUN 9 (6-20) mg/dL Creatinine 0.8 (0.5-0.9) mg/dL GFR Calculation 75.3 L (90-130) mL/min Glucose 91 (65-115) mg/dL Calculated Osmolal ity 294 (285-295) mOsm/k g Lactic Acid (0.5-2.2) mmol/L Calcium 8.0 L (8.5-10.5) mg/dL Magnesium 1.9 (1.7-2.3) mg/dL Total Bilirubin 0.5 (0.15-1.2) mg/dL AST 45 H (0-32) U/L ALT 40 H (0-33) U/L Alkaline Phosphata se 73 (35-105) IU/L Total Protein 7.1 (6.6-8.7) g/dL Albumin 4.1 (3.5-5.2) g/dL Globulin 3.0 (1.3-4.6) g/dL Lipase 18 (13-60) U/L Urine Color (Yellow) Urine Appearance (CLEAR) Urine pH (5-7) Ur Specific Gravit y (1.005-1.030) Urine Protein (Negative) Urine Glucose (UA) (Normal) Urine Ketones (Negative) Urine Blood (Negative) Urine Nitrate (Negative) Urine Bilirubin (Negative) Urine Urobilinogen (Negative) mg/dL Ur Leukocyte Queta ase (Negative) Urine RBC (0-2) /hpf Urine WBC (0-5) /hpf Ur Squamous Epith Cells (0-5) /hpf Ur Transition Epit h Cell /hpf Amorphous Sediment Urine Bacteria (NONE) /hpf Urine Mucus /hpf Discharge Plan Discharge Patient Disposition: Home Clinical Impression: Abdominal pain Condition: Stable Prescriptions: No Action diclofenac sodium [Voltaren] 1 % gel 2 g topical QID Qty: 100 RF: 0 Enbrel 50 mg/mL (1 mL) syringe 50 mg SUBCUT Q7D 30 Days Qty: 5 RF: 5 Eliquis 5 mg tablet 5 mg PO BID@799,1999 RF: 0 sumatriptan succinate [Imitrex] 50 mg tablet 50 mg PO PRN RF: 0 ropinirole 4 mg tablet 4 mg PO BEDTIME Qty: 30 RF: 5 quetiapine 200 mg tablet 200 mg PO DAILY Qty: 30 RF: 5 (DME) insulin syringe-needle U-100 [TRUEplus Insulin] 1 mL 30 gauge x 5/16 syringe See Rx Instructions .ROUTE .MEDSUPPLY Qty: 100 RF: 2 umeclidinium-vilanterol [Anoro Ellipta] 62.5-25 mcg/actuation blister with device See Rx Instructions .ROUTE .COMPLEX Qty: 60 RF: 3 pantoprazole [Protonix] 40 mg Tablet,Delayed Release (Dr/Ec) 40 mg PO BID@799,1999 RF: 0 nitroglycerin 0.4 mg Tablet, Sublingual 0.4 mg SUBLINGUAL Q5M PRN (Reason: Chest Pain) RF: 0 pregabalin [Lyrica] 100 mg Capsule 100 mg PO TID@08,12,20 RF: 0 Vitamin B-12 1 tab PO DAILY@0800 RF: 0 methotrexate sodium 25 mg/mL solution 25 mg IM Q7D RF: 0 cyanocobalamin (vitamin B-12) 1,000 mcg/mL solution 1,000 mcg IM Q30D RF: 0 quetiapine 300 mg tablet 300 mg PO BEDTIME RF: 0 metoclopramide HCl [Reglan] 10 mg tablet 10 mg PO Q6H PRN (Reason: nausea and vomiting) Qty: 20 RF: 0 fluoxetine 20 mg capsule 60 mg PO DAILY@0800 RF: 0 quetiapine 400 mg tablet 400 mg PO BEDTIME@1999 RF: 0 folic acid 1 mg tablet 1 mg PO DAILY@0800 RF: 0 buspirone 15 mg tablet 15 mg PO BID@00,1999 RF: 0 Discharge Orders: Discharge ED (Routine); Ordered 08/05/20 Ordered By: Marv Aguilar Referrals: Ayan Jay MD [Primary Care Provider] - Discharge Diet: Usual diet Discharge Activity: Increase activity as tolerated Patient Instructions: Opioid Safety Coding Level of Care Code ED Supervisor [place] for Vicente Fwd Exam Comprehensive
[2020-08-05 15:00] LABS: Alanine Aminotransferase 40 U/L (0-33); Albumin Level 4.1 g/dL (3.5-5.2); Alkaline Phosphatase 73 IU/L (35-105); Anion Gap 15.3 (5-19); Aspartate Amino Transferase 45 U/L (0-32); Blood Urea Nitrogen 9 mg/dL (6-20); Carbon Dioxide 26 mmol/L (22-29); Chloride 105 mmol/L (98-107); Glomerular Filtration Rate 75.3 mL/min (90-130); Glucose 91 mg/dL (65-115); Lactic Sepsis W/Reflex 1.4 mmol/L (0.5-2.2); Lipase 18 U/L (13-60); Osmolality Calculated 294 mOsm/kg (285-295); Potassium 3.3 mmol/L (3.5-5.1); Sodium 143 mmol/L (136-145); Total Bilirubin 0.5 mg/dL (0.15-1.2); Total Protein 7.1 g/dL (6.6-8.7)
[2020-08-05 15:20] LABS: Basophils # 0.1 10^3/uL (0.0-0.1); Eosinophils # 0.2 10^3/uL (0.0-0.8); Eosinophils % 2.8 %; Hematocrit 39.6 % (37.0-47.0); Hemoglobin 13.6 g/dL (11.5-15.3); Lymphocytes % 32.6 %; Mean Corpuscular HGB Conc 34.3 g/dL (30.0-36.0); Mean Corpuscular Hemoglobin 32.6 pg (28.0-34.0); Mean Platelet Volume 10.2 fL (7.4-10.4); Monocytes # 0.6 10^3/uL (0.2-0.9); Monocytes % 9.7 %; Neutrophils # 3.21 10^3/uL (1.8-7.7); Neutrophils % 53.6 %; Nucleated Red Blood Cells % 0 %; Platelet Count 337 10^3/cmm (130-400); Red Blood Count 4.17 10^6/uL (4.1-5.3); Red Cell Distribution Width 14.9 % (12.1-15.1)
[2020-08-05] MEDS: potassium chloride oral liq 20 mEq/15 mL UDC 40 MEQ PO (16:18)
[2020-08-05 16:27] VITALS: RESP 18; TEMP 36.4; O2SAT 95
[2020-08-05 16:44] LABS: Magnesium 1.9 mg/dL (1.7-2.3)
== END 2020-08-05 16:27 | disposition home or self-care (01) ==
PROVIDERS: Emergency Provider Family Medicine; PCP Family Medicine
DX: R10.9 Unspecified abdominal pain (principal); Z79.01 Long term (current) use of anticoagulants; Z79.4 Long term (current) use of insulin; Z85.048 Personal history of other malignant neoplasm of rectum, rectosigmoid junction, and anus; F17.210 Nicotine dependence, cigarettes, uncomplicated
CPT/HCPCS: 74177; 80053; 81001; 83605; 83690; 83735; 85025; 96361; 96374; 96375; 96376; 99284; J2270; J2405; J7030; Q9967

== ENCOUNTER → 2020-08-23 07:26 | Outpatient (BNVA) | payer MEDICARE, MEDICAID, SELFPAY | PROVIDERS: PCP Family Medicine; Visit Provider Psychiatry & Neurology Psychiatry | DX: F33.42 Major depressive disorder, recurrent, in full remission (principal); G47.33 Obstructive sleep apnea (adult) (pediatric); G25.81 Restless legs syndrome; F10.21 Alcohol dependence, in remission; F15.21 Other stimulant dependence, in remission; F14.21 Cocaine dependence, in remission; F17.200 Nicotine dependence, unspecified, uncomplicated | CPT/HCPCS: 99214 ==

== ENCOUNTER 2020-09-28 15:03 | Emergency (ER) | payer MEDICARE, MEDICAID, SELFPAY ==
[2020-09-28 15:31] VITALS: BP 151/86; PULSE 96; RESP 19; TEMP 36.8; O2SAT 95; BMI 35.7
--- NOTE | 2020-09-28 16:03 | XRR_ITS ---
PROCEDURE INFORMATION: Exam: XR Left Ankle Exam date and time: 09/28/2020 4:03 PM Age: 50 years old Clinical indication: Pain; Ankle; Left; Additional info: Injury/pain TECHNIQUE: Imaging protocol: XR Left ankle. Views: 3 or more views. COMPARISON: No relevant prior studies available. FINDINGS: Bones/joints: Normal. Soft tissues: Normal. XR/XR ankle LT min 3V* [id number] IMPRESSION: No acute findings.
--- NOTE | 2020-09-28 16:03 | XRR_ITS ---
PROCEDURE INFORMATION: Exam: XR Left Foot Exam date and time: 09/28/2020 4:03 PM Age: 50 years old Clinical indication: Pain; Foot; Left; Additional info: Pain/injury TECHNIQUE: Imaging protocol: XR Left foot. Views: 3 or more views. COMPARISON: No relevant prior studies available. FINDINGS: Bones/joints: Normal. Soft tissues: Normal. XR/XR foot LT min 3V* [id number] IMPRESSION: No acute findings.
--- NOTE | 2020-09-28 16:04 | ED_ITS ---
HPI - Extremity Problem General: Chief complaint: Extremity Injury, Lower Stated complaint: L ankle pain Time Seen by Provider: 09/28/20 15:52 Source: patient Mode of arrival: ambulatory Limitations: no limitations History of Present Illness: HPI Narrative: Patient is a 50-year-old female who presents to ED today for evaluation of her left ankle and foot pain and bruising that she noticed yesterday. She has not had any known injury or trauma but states that is painful with weightbearing. She has not noticed significant swelling. She has no calf pain. No redness, warmth, or signs of infection. MD Complaint: extremity pain and joint pain Onset (ago): day(s) Pain Consistency: constant Location: left and lower extremity Radiation: none Relieving factors: nothing Exacerbating factors: range of motion, weight bearing, walking and palpation Associated symptoms: Reports no associated symptoms; Deny chest pain or fever(s) Review of Systems Const: Denies: fever(s), chills, body aches, fatigue or malaise Card: Denies: chest pain Resp: Denies: dyspnea GI: Denies: abdominal pain Musc: Reports: extremity pain (L foot) and joint pain (L ankle) Neuro: Denies: numbness in extremities or sensory changes PFSH ED PFSH: Medical History Alcohol dependence, in remission Chronic post-traumatic stress disorder CKD (chronic kidney disease) Cocaine dependence, in remission Hydronephrosis of right kidney Immunosuppression Lumbar radiculitis Obstructive sleep apnea Osteoarthritis of knees, bilateral Other stimulant dependence, in remission Peripheral neuropathy Psoriasis Psoriatic arthritis Pulmonary embolism Rectal cancer Restless leg syndrome Surgical History Colostomy in place H/O tubal ligation H/O: hysterectomy History of resection of rectum Family History Other Cancer Social History (Updated 09/09/20 @ 14:15 by Candice Cha LPN) Smoking and tobacco status: former smoker Quit status (tobacco): has quit using tobacco Year quit tobacco: 2020 Former quit date comment: Hx of 1PPD x 46 Years Smoking risk assessment/counseling performed?: No Alcohol intake: current Alcohol intake frequency: holidays/special occasions only Counseling given: No Counseling given: No Lives independently: Yes Household members: none Marital status: Legally Current occupational status: disabled History of recent travel: No Current gender identity: Female Physical Exam 2 Const: COMMON NORMALS: no acute distress, patient oriented x3, no limitations and alert Extremity: GENERAL: Yes normal exam except as noted OTHER: mild ecchymosis to L anterior ankle joint and medial foot; no swelling; NV intact; no calf pain or swelling; no redness/warmth/infection present; TTP with palpation and ROM Neuro: COMMON NORMALS: patient oriented x3, moves all extremities, no focal motor deficits, no sensory deficits noted and gait normal SENSORIUM/ORIENTATION: Yes alert Skin: NARRATIVE SKIN EXAM: see extremity assessment for pertinent skin findings Course Vital Signs: Vital signs: Vital Signs Temperature 98.2 F 09/28/20 15:31 Pulse Rate 96 09/28/20 15:31 Respiratory Rate 19 H 09/28/20 15:31 Blood Pressure 151/86 09/28/20 15:31 Pulse Oximetry 95 09/28/20 15:31 Discharge Plan Discharge Patient Disposition: Home Clinical Impression: Left ankle sprain Qualifiers: Encounter type: initial encounter Involved ligament of ankle: unspecified ligament Qualified Code(s): S93.402A - Sprain of unspecified ligament of left ankle, initial encounter Condition: Stable Prescriptions: No Action diclofenac sodium [Voltaren] 1 % gel 2 g topical QID Qty: 100 RF: 0 Enbrel 50 mg/mL (1 mL) syringe 50 mg SUBCUT Q7D 30 Days Qty: 5 RF: 5 Eliquis 5 mg tablet 5 mg PO BID@0800,2000 RF: 0 sumatriptan succinate [Imitrex] 50 mg tablet 50 mg PO PRN RF: 0 quetiapine 200 mg tablet 200 mg PO DAILY Qty: 30 RF: 5 buspirone 15 mg tablet 15 mg PO BID Qty: 60 RF: 5 ropinirole 4 mg tablet 4 mg PO BEDTIME Qty: 30 RF: 5 (DME) insulin syringe-needle U-100 [TRUEplus Insulin] 1 mL 30 gauge x 5/16 syringe See Rx Instructions .ROUTE .MEDSUPPLY Qty: 100 RF: 2 umeclidinium-vilanterol [Anoro Ellipta] 62.5-25 mcg/actuation blister with device See Rx Instructions .ROUTE .COMPLEX Qty: 60 RF: 3 methotrexate sodium 25 mg/mL solution 25 mg IM DAILY 5 Days Qty: 10 RF: 2 methotrexate sodium 25 mg/mL solution 25 mg SUBCUT Q7D RF: 0 potassium chloride [Klor-Con M20] 20 mEq tablet,ER particles/crystals 20 meq PO DAILY Qty: 7 RF: 0 folic acid 1 mg tablet 1 mg PO DAILY@0800 Qty: 30 RF: 5 fluoxetine 40 mg capsule 80 mg PO DAILY Qty: 60 RF: 5 pantoprazole [Protonix] 40 mg Tablet,Delayed Release (Dr/Ec) 40 mg PO BID@0800,2000 RF: 0 nitroglycerin 0.4 mg Tablet, Sublingual 0.4 mg SUBLINGUAL Q5M PRN (Reason: Chest Pain) RF: 0 pregabalin [Lyrica] 100 mg Capsule 100 mg PO TID@08,12,20 RF: 0 Vitamin B-12 1 tab PO DAILY@0800 RF: 0 cyanocobalamin (vitamin B-12) 1,000 mcg/mL solution 1,000 mcg IM Q30D RF: 0 quetiapine 300 mg tablet 300 mg PO BEDTIME RF: 0 metoclopramide HCl [Reglan] 10 mg tablet 10 mg PO Q6H PRN (Reason: nausea and vomiting) Qty: 20 RF: 0 Discharge Orders: Discharge ED (Routine); Ordered 09/28/20 Ordered By: Steffanie Zhang Referrals: Ayan Jay MD [Primary Care Provider] - Patient Instructions: Ankle Sprain (ED) Coding Level of Care Code ED Traffic Chief for Chg Fwd Exam Expanded Problem Focused
[2020-09-28 16:53] VITALS: RESP 19; TEMP 36.8; O2SAT 95
== END 2020-09-28 16:53 | disposition home or self-care (01) ==
PROVIDERS: Emergency Provider Physician Assistant; PCP Family Medicine
DX: S93.402A Sprain of unspecified ligament of left ankle, initial encounter (principal); N18.9 Chronic kidney disease, unspecified; Z87.891 Personal history of nicotine dependence; X58.XXXA Exposure to other specified factors, initial encounter
CPT/HCPCS: 73610; 73630; 99282

== ENCOUNTER → 2020-10-09 12:45 | Outpatient (BNVA) | payer MEDICARE, MEDICAID, SELFPAY | PROVIDERS: PCP Family Medicine; Visit Provider Internal Medicine | DX: L40.9 Psoriasis, unspecified (principal); M17.0 Bilateral primary osteoarthritis of knee; Z51.81 Encounter for therapeutic drug level monitoring; Z79.899 Other long term (current) drug therapy | CPT/HCPCS: 36415; 80053; 85025; 85651; 86140 ==

== ENCOUNTER → 2020-10-17 09:37 | Outpatient (BNVA) | payer MEDICARE, MEDICAID, SELFPAY | PROVIDERS: PCP Family Medicine; Visit Provider Internal Medicine | DX: L40.9 Psoriasis, unspecified (principal); M48.00 Spinal stenosis, site unspecified; Z79.899 Other long term (current) drug therapy; M79.672 Pain in left foot; Z87.891 Personal history of nicotine dependence | CPT/HCPCS: 99214 ==

== ENCOUNTER → 2020-10-24 07:24 | Outpatient (BNVA) | payer MEDICARE, MEDICAID, SELFPAY | PROVIDERS: PCP Family Medicine; Visit Provider Psychiatry & Neurology Psychiatry | DX: F33.42 Major depressive disorder, recurrent, in full remission (principal); G25.81 Restless legs syndrome; G47.33 Obstructive sleep apnea (adult) (pediatric) | CPT/HCPCS: 99214 ==

== ENCOUNTER → 2020-10-31 09:19 | Outpatient (BNVA) | payer MEDICARE, MEDICAID, SELFPAY | PROVIDERS: PCP Family Medicine; Visit Provider Psychiatry & Neurology Psychiatry | DX: F33.42 Major depressive disorder, recurrent, in full remission (principal); F17.200 Nicotine dependence, unspecified, uncomplicated; G47.33 Obstructive sleep apnea (adult) (pediatric); F14.21 Cocaine dependence, in remission; G25.81 Restless legs syndrome; E89.41 Symptomatic postprocedural ovarian failure; F15.21 Other stimulant dependence, in remission; F10.21 Alcohol dependence, in remission; R25.2 Cramp and spasm | CPT/HCPCS: 99214 ==

== ENCOUNTER → 2020-11-05 13:25 | Outpatient (BNVA) | payer MEDICARE, MEDICAID, SELFPAY | PROVIDERS: PCP Family Medicine; Referring Provider Internal Medicine; Visit Provider Orthopaedic Surgery | DX: M48.00 Spinal stenosis, site unspecified (principal) | CPT/HCPCS: 72072; 72110 ==

== ENCOUNTER → 2020-11-26 07:14 | Outpatient (BNVA) | payer MEDICARE, MEDICAID, OTHER, SELFPAY | PROVIDERS: PCP Family Medicine; Visit Provider Psychiatry & Neurology Psychiatry | DX: F33.42 Major depressive disorder, recurrent, in full remission (principal); E89.41 Symptomatic postprocedural ovarian failure; G47.33 Obstructive sleep apnea (adult) (pediatric); G25.81 Restless legs syndrome; F14.21 Cocaine dependence, in remission; F17.200 Nicotine dependence, unspecified, uncomplicated; F10.21 Alcohol dependence, in remission; F15.21 Other stimulant dependence, in remission | CPT/HCPCS: 99214 ==

== ENCOUNTER 2021-01-15 12:03 | Outpatient (CLI) | payer MEDICARE, SELFPAY ==
[2021-01-15 12:45] LABS: Basophils % 0.6 %; Eosinophils % 0.6 %; Hematocrit 42.3 % (37.0-47.0); Hemoglobin 14.1 g/dL (11.5-15.3); Lymphocytes # 1.4 10^3/uL (0.8-4.8); Lymphocytes % 43.6 %; Mean Corpuscular HGB Conc 33.3 g/dL (30.0-36.0); Mean Corpuscular Hemoglobin 31.5 pg (28.0-34.0); Mean Corpuscular Volume 94.4 fl (81-99); Mean Platelet Volume 10.4 fL (7.4-10.4); Monocytes # 0.2 10^3/uL (0.2-0.9); Monocytes % 6.4 %; Neutrophils % 48.8 %; Nucleated Red Blood Cells % 0 %; Platelet Count 198 10^3/cmm (130-400); Red Blood Count 4.48 10^6/uL (4.1-5.3); Red Cell Distribution Width 13.3 % (12.1-15.1); White Blood Count 3.3 10^3/uL (4.0-10.0)
[2021-01-15 13:29] LABS: Alanine Aminotransferase 29 U/L (0-33); Albumin Level 4.2 g/dL (3.5-5.2); Alkaline Phosphatase 67 IU/L (35-105); Anion Gap 16.5 (5-19); Aspartate Amino Transferase 32 U/L (0-32); Blood Urea Nitrogen 12 mg/dL (6-20); C Reactive Protein 8.4 mg/L (0.0-4.9); Calcium 8.3 mg/dL (8.5-10.5); Carbon Dioxide 25 mmol/L (22-29); Chloride 101 mmol/L (98-107); Globulin 2.7 g/dL (1.3-4.6); Glomerular Filtration Rate 75.3 mL/min (90-130); Glucose 131 mg/dL (65-115); Osmolality Calculated 290 mOsm/kg (285-295); Potassium 3.5 mmol/L (3.5-5.1); Sodium 139 mmol/L (136-145); Total Bilirubin 0.4 mg/dL (0.15-1.2); Total Protein 6.9 g/dL (6.6-8.7)
[2021-01-17 14:03] LABS: Erythrocyte Sedimentation Rate 19 mm/hr (0-15)
== END 2021-01-15 12:04 | disposition home or self-care (01) ==
LOC: LAB 12:07
PROVIDERS: PCP Family Medicine; Visit Provider Internal Medicine
DX: L40.9 Psoriasis, unspecified (principal); M17.0 Bilateral primary osteoarthritis of knee; Z51.81 Encounter for therapeutic drug level monitoring; Z79.899 Other long term (current) drug therapy
CPT/HCPCS: 36415; 80053; 85025; 85651; 86140

== ENCOUNTER → 2021-01-16 09:26 | Outpatient (BNVA) | payer MEDICARE, SELFPAY | PROVIDERS: PCP Family Medicine; Visit Provider Internal Medicine | DX: L40.9 Psoriasis, unspecified (principal); M79.673 Pain in unspecified foot; M54.50 Low back pain, unspecified; D72.819 Decreased white blood cell count, unspecified; Z79.899 Other long term (current) drug therapy; F17.200 Nicotine dependence, unspecified, uncomplicated | CPT/HCPCS: 99214 ==

== ENCOUNTER 2021-01-17 10:19 | Outpatient (CLI) | payer MEDICARE, MEDICAID, SELFPAY ==
--- NOTE | 2021-01-17 10:33 | XR_ITS ---
WS: [id number] Exam: XR ankle RT 2V [id number] Date/Time of Exam: 01/17/2021 10:37 AM Reason For Exam: M54.50 - Low back pain, unspecified Findings: Multiple views of the ankle reveal no fracture or displacements of bone. No soft tissue swelling is present. There are no periosteal reactions noted. The talus and calcaneus are in adequate position. The joint space is smooth and equidistant. XR/XR ankle RT 2V [id number] IMPRESSION: Negative right ankle.
--- NOTE | 2021-01-17 10:33 | XR_ITS ---
WS: [id number] Exam: XR knee RT 1-2V [id number] Date/Time of Exam: 01/17/2021 10:37 AM Reason For Exam: M54.50 - Low back pain, unspecified Comparison 01/12/2020. No fracture or dislocation noted. Articular relationships are intact. No joint effusion. XR/XR knee RT 1-2V [id number] Impression: Normal right knee Kellgren-Raad Classification: 0
--- NOTE | 2021-01-17 10:33 | XR_ITS ---
WS: [id number] Exam: XR ankle LT 2V [id number] Date/Time of Exam: 01/17/2021 10:37 AM Reason For Exam: M54.50 - Low back pain, unspecified Findings: Multiple views of the ankle reveal no fracture or displacements of bone. No soft tissue swelling is present. There are no periosteal reactions noted. The talus and calcaneus are in adequate position. The joint space is smooth and equidistant. XR/XR ankle LT 2V [id number] IMPRESSION: Negative left ankle.
--- NOTE | 2021-01-17 10:33 | XR_ITS ---
WS: [id number] Exam: XR knee LT 1-2V [id number] Date/Time of Exam: 01/17/2021 10:37 AM Reason For Exam: M54.50 - Low back pain, unspecified Comparison 01/12/2020. No fracture or dislocation noted. Articular relationships are intact. No joint effusion. XR/XR knee LT 1-2V [id number] Impression: Normal left knee Kellgren-Raad Classification: 0
== END 2021-01-17 10:20 | disposition home or self-care (01) ==
LOC: RAD 10:25
PROVIDERS: PCP Family Medicine; Visit Provider Internal Medicine
DX: M54.50 Low back pain, unspecified (principal); M79.673 Pain in unspecified foot; R25.2 Cramp and spasm; Z79.899 Other long term (current) drug therapy; Z01.812 Encounter for preprocedural laboratory examination; Z20.822 Contact with and (suspected) exposure to COVID-19
CPT/HCPCS: 73560; 73600; 87635

== ENCOUNTER 2021-01-22 15:42 | Emergency (ER) | payer MEDICARE, MEDICAID, SELFPAY ==
[2021-01-22 15:50] VITALS: BP 131/57; PULSE 85; RESP 19; O2SAT 95; BMI 36.5
--- NOTE | 2021-01-22 19:02 | XRR_ITS ---
PROCEDURE INFORMATION: Exam: XR Left Knee Exam date and time: 01/22/2021 7:02 PM Age: 50 years old Clinical indication: Pain; Knee; Left; Additional info: Knee pain TECHNIQUE: Imaging protocol: XR Left knee. Views: 1 or 2 views. COMPARISON: No relevant prior studies available. FINDINGS: Bones/joints: Normal. Soft tissues: Normal. XR/XR knee LT 1-2V [id number] IMPRESSION: No acute findings. Radiation Dose CTDIVOL = (mGy): DLP = (mGy-cm)
--- NOTE | 2021-01-22 19:02 | XRR_ITS ---
PROCEDURE INFORMATION: Exam: XR Right Knee Exam date and time: 01/22/2021 7:02 PM Age: 50 years old Clinical indication: Pain; Knee; Right; Additional info: Knee pain TECHNIQUE: Imaging protocol: XR Right knee. Views: 1 or 2 views. COMPARISON: No relevant prior studies available. FINDINGS: Bones/joints: Normal. Soft tissues: Normal. XR/XR knee RT 1-2V [id number] IMPRESSION: No acute findings. Radiation Dose CTDIVOL = (mGy): DLP = (mGy-cm)
--- NOTE | 2021-01-22 19:02 | CTR_ITS ---
PROCEDURE INFORMATION: Exam: CT Lumbar Spine With Contrast Exam date and time: 01/22/2021 7:02 PM Age: 50 years old Clinical indication: Patient HX: Low back pain with radiation down both legs. ; Additional info: Eval for infection TECHNIQUE: Imaging protocol: Computed tomography images of the lumbar spine with intravenous contrast. Radiation optimization: All CT scans at this facility use at least one of these dose optimization techniques: automated exposure control; mA and/or kV adjustment per patient size (includes targeted exams where dose is matched to clinical indication); or iterative reconstruction. Contrast material: OMNI 350; Contrast volume: 95 ml; Contrast route: INTRAVENOUS (IV); COMPARISON: MR lumbar spine wo con* [id number] 04/02/2020 8:38 AM RADIATION DOSE METRICS: Total DLP (mGy-cm): 2437.22 FINDINGS: Vertebrae: S1 vertebral body sclerotic nonaggressive bony lesion. L1-L2: No significant disc protrusion. No severe spinal canal stenosis. No significant neural foraminal narrowing. L2-L3: No significant disc protrusion. No severe spinal canal stenosis. No significant neural foraminal narrowing. L3-L4: No significant disc protrusion. No severe spinal canal stenosis. No significant neural foraminal narrowing. L4-L5: No significant disc protrusion. No severe spinal canal stenosis. No significant neural foraminal narrowing. L5-S1: L5/S1 broad-based disc bulge with mild spinal canal and bilateral foraminal narrowing. Soft tissues: Unremarkable. CT/CT lumbar spine w con [id number] IMPRESSION: L5/S1 broad-based disc bulge with mild spinal canal and bilateral foraminal narrowing. Radiation Dose CTDIVOL = (mGy): DLP = 2437.22 (mGy-cm)
[2021-01-22 19:20] VITALS: RESP 18
[2021-01-22] MEDS: morphine 4 mg/mL SDV 1 mL IVP (19:20)
[2021-01-22 19:50] LABS: Basophils % 0.3 %; Hematocrit 41.3 % (37.0-47.0); Hemoglobin 14.2 g/dL (11.5-15.3); Lymphocytes # 1.4 10^3/uL (0.8-4.8); Lymphocytes % 36.8 %; Mean Corpuscular HGB Conc 34.4 g/dL (30.0-36.0); Mean Corpuscular Hemoglobin 31.6 pg (28.0-34.0); Mean Platelet Volume 10.6 fL (7.4-10.4); Monocytes # 0.3 10^3/uL (0.2-0.9); Monocytes % 8.2 %; Neutrophils # 2.05 10^3/uL (1.8-7.7); Neutrophils % 53.9 %; Nucleated Red Blood Cells % 0 %; Platelet Count 138 10^3/cmm (130-400); Red Blood Count 4.49 10^6/uL (4.1-5.3); Red Cell Distribution Width 13.8 % (12.1-15.1); White Blood Count 3.8 10^3/uL (4.0-10.0)
[2021-01-22 20:06] LABS: Lactate (Lactic Acid level) 0.9 mmol/L (0.5-2.2)
[2021-01-22 20:13] VITALS: RESP 16
[2021-01-22] MEDS: iohexol 300 mg/mL 100 mL Btl IV (20:47)
[2021-01-22 21:10] LABS: Alanine Aminotransferase 33 U/L (0-33); Albumin Level 3.8 g/dL (3.5-5.2); Alkaline Phosphatase 90 IU/L (35-105); Anion Gap 19.7 (5-19); Aspartate Amino Transferase 39 U/L (0-32); Blood Urea Nitrogen 7 mg/dL (6-20); Carbon Dioxide 17 mmol/L (22-29); Chloride 101 mmol/L (98-107); Globulin 2.8 g/dL (1.3-4.6); Glomerular Filtration Rate 87.9 mL/min (90-130); Glucose 90 mg/dL (65-115); Lipase 43 U/L (13-60); Osmolality Calculated 276 mOsm/kg (285-295); Potassium 3.7 mmol/L (3.5-5.1); Sodium 134 mmol/L (136-145); Total Bilirubin 0.5 mg/dL (0.15-1.2); Total Protein 6.6 g/dL (6.6-8.7)
--- NOTE | 2021-01-22 21:24 | ED_ITS ---
HPI - General Adult General: Chief complaint: Back Pain/Injury Stated complaint: COVID +/ BACK AND LEG PAIN Time Seen by Provider: 01/22/21 15:45 History of Present Illness: HPI narrative: Patient is a 50-year-old female with a history of spinal stenosis with neurogenic claudication presenting to the emergency room with acute worsening of lower back pain. Patient has been diagnosed with Covid 5 days ago and is due for back surgery however, because of Covid Covid status, patient is not a candidate at the present time for elective outpatient surgery. Patient presents emergency room for worsening back pain. Patient says any trauma, focal weakness in the lower extremity, bladder or bowel problem, saddle anesthesia. Patient was asleep when this pain is gotten worse. Patient denies any rolling or trauma. Patient also reports bilateral knee pain. Denies any history of IV drug use, immunocompromise, diabetes, other issues. Onset: earlier today Duration: ongoing Location:home Severity:moderate Review of Systems Narrative: Constitutional: No fever, no chills. HEENT: No vision changes CV: No chest pain, no palpitations PULM: no cough, no dyspnea. GI: No abdominal pain, no N/V/D. : No dysuria MSKEL: No muscle pain SKIN: No new rashes, no lesions. NEURO: No headache, no focal weakness. HEME: No visible bruises PSYCH: Normal mood BACK: +back pain lumbar midline PFSH ED PFSH: Medical History (Updated 01/22/21 @ 22:13 by Jayden Shipman MD) Alcohol dependence, in remission Chronic post-traumatic stress disorder CKD (chronic kidney disease) Hydronephrosis of right kidney Immunosuppression Lumbar radiculitis Lumbar spondylosis Obstructive sleep apnea Osteoarthritis of knees, bilateral Other stimulant dependence, in remission Peripheral neuropathy Psoriasis Psoriatic arthritis Psychiatric care Psychiatric care Pulmonary embolism Rectal cancer Restless leg syndrome Surgical History Colostomy in place H/O tubal ligation H/O: hysterectomy History of resection of rectum Family History Other Cancer Social History Smoking and tobacco status: current every day smoker Quit status (tobacco): has quit using tobacco Year quit tobacco: 2020 Former quit date comment: Hx of 1PPD x 46 Years Smoking risk assessment/counseling performed?: No Alcohol intake: current Alcohol intake frequency: holidays/special occasions only Counseling given: No Counseling given: No Lives independently: Yes Household members: none Marital status: Legally Current occupational status: disabled History of recent travel: No Current gender identity: Female Physical Exam Narrative: EXAM NARRATIVE: Head: Atraumatic Eyes: PERRL, conjunctiva without injection ENT: Mucous membrane moist NECK: Supple, ROM intact LUNGS: LCTAB, no crackles/rhonchi CV: RRR ABDOMEN: Soft, nontender in all quadrants EXTREMITY: Normal ROM extremity, strength 5 out of 5 in all extremity, sensation intact in the lower extremity. SKIN: No rash or erythema NEURO: Awake and alert, no focal motor deficits PSYCH: Normal mood and affect BACK: + moderate midline upper lumbar tenderness to palpation any obvious step- off, deformity, or erythema/induration/fluctuance. : No saddle numbness Course Vital Signs: Vital signs: Vital Signs Pulse Rate 85 01/22/21 15:50 Respiratory Rate 16 01/22/21 22:17 Blood Pressure 131/57 01/22/21 15:50 Pulse Oximetry 98 01/22/21 22:17 MDM - General Adult MDM Narrative: Medical decision making narrative: Patient is a 50-year-old female with a history of spinal stenosis presented to emergency room with acute worsening of lower back pain. On exam, patient has mild tenderness to palpation at the level of L1/L2. Patient is not immunocompromise. At the present time, does not exhibit any signs of spinal cord compression as patient has perfect strength sensation of the lower extremity. Work-up today showed white count of 3.8. CT of the lumbar spine showed L5-S1 disc bulge. Initially patient has postvoid residual 190. Then, patient was able to successfully void again. Postvoid residual after the first void was 18. At the present time, I do not have any suspicion for epidural abscess or acute cord compression given no new neuro findings and normal post void. Bilateral knee x- rays negative for any acute findings. Patient has been able to ambulate without any difficulty. Rx tylenol, menthol, lidocaine patch PRN pain Patient is aware that she needs to follow-up with an orthopedic provider for further evaluation of her back pain. I have given patient strict return precaution for any signs of bladder or bowel incontinence of weakness in the lower extremity, change in sensation, saddle anesthesia, or any signs of cord compression. Lab Data: Labs: Lab Results 01/22/21 01/22/21 01/22/21 19:25 19:25 19:25 WBC 3.8 10^3/uL L 10^ 3/uL (4.0-10.0) RBC 4.49 10^6/uL 10^6 /uL (4.1-5.3) Hgb 14.2 g/dL g/dL (11.5-15.3) Hct 41.3 % % (37.0-47.0) MCV 92.0 fl fl (81-99) MCH 31.6 pg pg (28.0-34.0) MCHC 34.4 g/dL g/dL (30.0-36.0) RDW 13.8 % % (12.1-15.1) Plt Count 138 10^3/cmm 10^3 /cmm (130-400) MPV 10.6 fL H fL (7.4-10.4) Neut % (Auto) 53.9 % % Lymph % (Auto) 36.8 % % [place] % (Auto) 8.2 % % Eos % (Auto) 0.0 % % Baso % (Auto) 0.3 % % Neut # (Auto) 2.05 10^3/uL 10^3 /uL (1.8-7.7) Lymph # (Auto) 1.4 10^3/uL 10^3/ uL (0.8-4.8) [place] # (Auto) 0.3 10^3/uL 10^3/ uL (0.2-0.9) Eos # (Auto) 0.0 10^3/uL 10^3/ uL (0.0-0.8) Baso # (Auto) 0.0 10^3/uL 10^3/ uL (0.0-0.1) Nucleated RBC % (a uto) 0 % % Nucleated RBCs # 0.0 /100WBC /100W BC Sodium Cancelled Potassium Cancelled Chloride Cancelled Carbon Dioxide Cancelled Anion Gap Cancelled BUN Cancelled Creatinine Cancelled GFR Calculation Cancelled Glucose Cancelled Calculated Osmolal ity Cancelled Lactate 0.9 mmol/L mmol/L (0.5-2.2) Calcium Cancelled Total Bilirubin Cancelled AST Cancelled ALT Cancelled Alkaline Phosphata se Cancelled Total Protein Cancelled Albumin Cancelled Globulin Cancelled Lipase Cancelled Urine Color Urine Appearance Urine pH Ur Specific Gravit y Urine Protein Urine Glucose (UA) Urine Ketones Urine Blood Urine Nitrate Urine Bilirubin Urine Urobilinogen Ur Leukocyte Queta ase 01/22/21 01/22/21 20:24 21:26 WBC RBC Hgb Hct MCV MCH MCHC RDW Plt Count MPV Neut % (Auto) Lymph % (Auto) [place] % (Auto) Eos % (Auto) Baso % (Auto) Neut # (Auto) Lymph # (Auto) [place] # (Auto) Eos # (Auto) Baso # (Auto) Nucleated RBC % (a uto) Nucleated RBCs # Sodium 134 mmol/L L mmol /L (136-145) Potassium 3.7 mmol/L mmol/L (3.5-5.1) Chloride 101 mmol/L mmol/L (98-107) Carbon Dioxide 17 mmol/L L mmol/ L (22-29) Anion Gap 19.7 H (5-19) BUN 7 mg/dL mg/dL (6-20) Creatinine 0.7 mg/dL mg/dL (0.5-0.9) GFR Calculation 87.9 mL/min L mL/ min (90-130) Glucose 90 mg/dL mg/dL (65-115) Calculated Osmolal ity 276 mOsm/kg L mOs m/kg (285-295) Lactate Calcium 8.0 mg/dL L mg/dL (8.5-10.5) Total Bilirubin 0.5 mg/dL mg/dL (0.15-1.2) AST 39 U/L H U/L (0-32) ALT 33 U/L U/L (0-33) Alkaline Phosphata se 90 IU/L IU/L (35-105) Total Protein 6.6 g/dL g/dL (6.6-8.7) Albumin 3.8 g/dL g/dL (3.5-5.2) Globulin 2.8 g/dL g/dL (1.3-4.6) Lipase 43 U/L U/L (13-60) Urine Color Yellow (Yellow) Urine Appearance Clear (CLEAR) Urine pH 5 (5-7) Ur Specific Gravit y 1.010 (1.005-1.030) Urine Protein Neg (Negative) Urine Glucose (UA) Norm (Normal) Urine Ketones Negative (Negative) Urine Blood Neg (Negative) Urine Nitrate Negative (Negative) Urine Bilirubin Neg (Negative) Urine Urobilinogen Norm mg/dL mg/dL (Negative) Ur Leukocyte Queta ase Negative (Negative) Imaging Data^: Other Imaging: Radiologist's impression: [facility] [id number] Scan ReportSigned Patient: Maura Hermosillo #: [id number]: [id number]#:[id number]/Sex: 50 / FADM Date: 01/22/21Loc: ERRoom/Bed:Attending Dr: Ordering Provider/Ordering MD: Jayden Shipman MD Date of Service: 01/22/21 Procedure(s): CT lumbar spine w con [id number] Accession Number(s): [id number] Report Number: [id number] PROCEDURE INFORMATION: Exam: CT Lumbar Spine With Contrast Exam date and time: 01/22/2021 7:02 PM Age: 50 years old Clinical indication: Patient HX: Low back pain with radiation down both legs. ; Additional info: Eval for infection TECHNIQUE: Imaging protocol: Computed tomography images of the lumbar spine with intravenous contrast. Radiation optimization: All CT scans at this facility use at least one of these dose optimization techniques: automated exposure control; mA and/or kV adjustment per patient size (includes targeted exams where dose is matched to clinical indication); or iterative reconstruction. Contrast material: OMNI 350; Contrast volume: 95 ml; Contrast route: INTRAVENOUS (IV); COMPARISON: MR lumbar spine wo con* [id number] 04/02/2020 8:38 AM RADIATION DOSE METRICS: Total DLP (mGy-cm): 2437.22 FINDINGS: Vertebrae: S1 vertebral body sclerotic nonaggressive bony lesion. L1-L2: No significant disc protrusion. No severe spinal canal stenosis. No significant neural foraminal narrowing. L2-L3: No significant disc protrusion. No severe spinal canal stenosis. No significant neural foraminal narrowing. L3-L4: No significant disc protrusion. No severe spinal canal stenosis. No significant neural foraminal narrowing. L4-L5: No significant disc protrusion. No severe spinal canal stenosis. No significant neural foraminal narrowing. L5-S1: L5/S1 broad-based disc bulge with mild spinal canal and bilateral foraminal narrowing. Soft tissues: Unremarkable. CT/CT lumbar spine w con [id number] IMPRESSION: L5/S1 broad-based disc bulge with mild spinal canal and bilateral foraminal narrowing. Radiation Dose CTDIVOL = (mGy): DLP = 2437.22 (mGy-cm) Dictated By:Michael Eisenberg MDSigned By:Michael Eisenberg MDSigned Date/Time:01/22/21D/ 01 Discharge Plan Discharge Patient Disposition: Home Clinical Impression: Herniated disc, Back pain Condition: Stable Prescriptions: New acetaminophen 500 mg tablet 500 mg PO Q6H PRN (Reason: pain) 5 Days Qty: 20 RF: 0 orphenadrine citrate 100 mg tablet extended release 100 mg PO BID PRN (Reason: pain) 10 Days Qty: 20 RF: 0 Biofreeze (menthol) 5 % gel 1 ea topical BID PRN (Reason: pain) 10 Days Qty: 1 RF: 0 lidocaine 5 % adhesive patch,medicated 1 patch topical DAILY PRN (Reason: pain) 10 Days Qty: 10 RF: 0 No Action diclofenac sodium 1 % gel 2 g topical QID Qty: 100 RF: 2 Orencia 125 mg/mL syringe 125 mg SUBCUT .qweek Qty: 4 RF: 3 paroxetine HCl [Paxil] 20 mg tablet 20 mg PO DAILY Qty: 30 RF: 5 quetiapine 200 mg tablet 200 mg PO DAILY Qty: 30 RF: 5 quetiapine 300 mg tablet 300 mg PO BEDTIME Qty: 30 RF: 5 triamcinolone acetonide 0.1 % cream 1 applic topical DAILY Qty: 80 RF: 0 Eliquis 5 mg tablet 5 mg PO BID@0800,2000 RF: 0 buspirone 15 mg tablet 15 mg PO BID Qty: 60 RF: 5 ropinirole 4 mg tablet 4 mg PO BEDTIME Qty: 30 RF: 5 methotrexate sodium 25 mg/mL solution 25 mg SUBCUT Q7D RF: 0 folic acid 1 mg tablet 1 mg PO DAILY@0800 Qty: 30 RF: 5 albuterol sulfate 90 mcg/actuation HFA aerosol inhaler 1 inh inhalation QID PRN (Reason: shortness of breath or wheezing) Qty: 8.5 RF: 3 Anoro Ellipta 62.5-25 mcg/actuation blister with device See Rx Instructions .ROUTE .COMPLEX Qty: 60 RF: 3 (DME) insulin syringe-needle U-100 [TRUEplus Insulin] 1 mL 30 gauge x 5/16 syringe See Rx Instructions .ROUTE .MEDSUPPLY Qty: 100 RF: 2 pantoprazole [Protonix] 40 mg Tablet,Delayed Release (Dr/Ec) 40 mg PO BID@0800,2000 RF: 0 nitroglycerin 0.4 mg Tablet, Sublingual 0.4 mg SUBLINGUAL Q5M PRN (Reason: Chest Pain) RF: 0 pregabalin [Lyrica] 100 mg Capsule 100 mg PO TID@08,12,20 RF: 0 cyanocobalamin (vitamin B-12) 1,000 mcg/mL solution 1,000 mcg IM Q30D RF: 0 metoclopramide HCl [Reglan] 10 mg tablet 10 mg PO Q6H PRN (Reason: nausea and vomiting) Qty: 20 RF: 0 Discharge Orders: Discharge ED (Routine); Ordered 01/22/21 Ordered By: Jayden Shipman Referrals: Ayan Jay MD [Primary Care Provider] - Discharge Diet: Advance as tolerated Discharge Activity: Resume usual activity Patient Instructions: Back Pain (ED) Activity Restrictions/Additional Instructions: Please come back to the emergency room you have worsening back pain, fever/chills, difficulty moving her legs, changes in sensation in the lower extremity, inability control your bladder or bowel, or any new concerning complaints. 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
[2021-01-22 21:38] LABS: Add Urine Microscopic? NO; Charge for UA Resulting for Rev
[2021-01-22 21:48] LABS: Bilirubin Urine Neg (Negative); Blood Urine Neg (Negative); Glucose Urine UA Norm (Normal); Ketones Urine Negative (Negative); Leukocyte Esterase Urine Negative (Negative); Nitrate Urine Negative (Negative); Protein Urine Neg (Negative); Urine Appearance Clear (CLEAR); Urine Color Yellow (Yellow); Urobilinogen Urine Norm (Negative); pH Urine 5 (5-7)
--- NOTE | 2021-01-22 22:10 | PC.NURSE ---
Pt revoided after previous scan and left with residual of 19mL
[2021-01-22 22:17] VITALS: RESP 16; O2SAT 98
[2021-01-22] MEDS: morphine 4 mg/mL SDV 1 mL 2 MG IVP (22:17)
[2021-01-22 22:25] VITALS: BP 106/76; PULSE 82; RESP 14; O2SAT 94
== END 2021-01-22 22:23 | disposition home or self-care (01) ==
PROVIDERS: Emergency Provider Emergency Medicine; PCP Family Medicine
DX: M51.27 Other intervertebral disc displacement, lumbosacral region (principal); F17.210 Nicotine dependence, cigarettes, uncomplicated; Z79.01 Long term (current) use of anticoagulants; Z79.4 Long term (current) use of insulin
CPT/HCPCS: 51798; 72132; 73560; 80053; 81003; 83605; 83690; 85025; 96374; 96376; 99284; J2270; Q9967

== ENCOUNTER → 2021-02-04 08:16 | Outpatient (BNVA) | payer MEDICARE, MEDICAID, SELFPAY | PROVIDERS: PCP Family Medicine; Visit Provider Psychiatry & Neurology Psychiatry | DX: F33.42 Major depressive disorder, recurrent, in full remission (principal); E89.41 Symptomatic postprocedural ovarian failure; G47.33 Obstructive sleep apnea (adult) (pediatric); G25.81 Restless legs syndrome; F14.21 Cocaine dependence, in remission; F17.200 Nicotine dependence, unspecified, uncomplicated; F10.21 Alcohol dependence, in remission; F15.21 Other stimulant dependence, in remission | CPT/HCPCS: 99213 ==

== ENCOUNTER 2021-02-10 05:33 | Day surgery (SDC) | payer MEDICARE, MEDICAID, SELFPAY ==
[2021-01-15 10:14] VITALS: BMI 35.6
--- NOTE | 2021-01-15 15:48 | P.ANESASSM_ITS ---
Pre-Anesthetic Assessment Pre-Anesthetic Assessment: Height/Weight: Height 1.75 m Weight 108.862 kg Proposed Procedure: Operation Date: 01/22/21 12:10 Proposed Procedures p Lumbar Spine Decompression L4/5 06457 M48.062(Not Applicable) - Daniel Kaur DO Was Beta Bernadette taken within 24 hours: N/A Was Clonidine taken within 24 hours: N/A Social: Social History: Tobacco and No alcohol Comment: History of multisu bstance abuse Exam: Pre-Anes Outpt Exam: alert, oriented x 3 and regular rate & rhythm Airway: Submandibular: WNL Cervical ROM: WNL MP: 2 Pulmonary: Pulmonary: COPD and Sleep apnea CV/HEM: CV/HEM: DVT (PE anticoagulated) : : Chronic renal Insufficiency GI: GI: GERD Metabolic: Metabolic: Morbid obesity Musc/skel: Musc/skel: Lower Back Pain, OA/DJD and RA Neuropsych: Neuropsych: Anxiety, Depression and Neuropathy Anesthetic Plan: ASA status: 3 Anesthesia: General Risk of > 500 ml blood loss (7ml/kg in children): No PFSH Anesthesia PFSH: Medical History (Updated 11/26/20 @ 09:16 by Bandar Munoz DO) Alcohol dependence, in remission Chronic post-traumatic stress disorder CKD (chronic kidney disease) Hydronephrosis of right kidney Immunosuppression Lumbar radiculitis Lumbar spondylosis Obstructive sleep apnea Osteoarthritis of knees, bilateral Other stimulant dependence, in remission Peripheral neuropathy Psoriasis Psoriatic arthritis Psychiatric care Psychiatric care Pulmonary embolism Rectal cancer Restless leg syndrome Surgical History Colostomy in place H/O tubal ligation H/O: hysterectomy History of resection of rectum Family History Other Cancer Social History Smoking and tobacco status: former smoker Quit status (tobacco): has quit using tobacco Year quit tobacco: 2020 Former quit date comment: Hx of 1PPD x 46 Years Smoking risk assessment/counseling performed?: No Alcohol intake: current Alcohol intake frequency: holidays/special occasions only Counseling given: No Counseling given: No Lives independently: Yes Household members: none Marital status: Legally Current occupational status: disabled History of recent travel: No Current gender identity: Female Data Anesthesia Cardiac Studies: No Data to Display
[2021-02-10] VITALS (10 sets, daily range): BP systolic 94–125; BP diastolic 52–75; PULSE 79–90; RESP 15–20; TEMP 36.3–36.4; O2SAT 93–98
--- NOTE | 2021-02-10 | XR_ITS ---
WS: [id number] INTRAOPERATIVE TECHNIQUE: 4 Spot fluoroscopic images for intraoperative purposes. FLUOROSCOPY TIME: 13.0 seconds CLINICAL INFORMATION: spinal stenosis COMPARISON: None. FINDINGS: Localization marker projected over the L5 vertebral body dorsally XR/XR lumbar spine 2-3V* [id number] IMPRESSION: Images obtained for intraoperative purposes.
--- NOTE | 2021-02-10 | SCC_ITS ---
Procedure Done: 1. bilateral L5/S1 laminectomy with partial facetectomies 15.4 seconds of fluoroscopic guidance, for a cumulative dose of 8.32 mGy, was provided to Dr. Kaur by the radiology department. C-arm images of the lumbar spine were saved for the patient's permanent record. [facility]
[2021-02-10] MEDS: sodium chloride 0.9% 1,000 ML 30 ML IV (06:16)
--- NOTE | 2021-02-10 06:52 | P.ANESUD_ITS ---
Pre-Anesthetic Update Pre-Anesthetic Assessment: Date of Surgery/Procedure: 02/10/21 Preop Ambreen gnosis: Lumbar radiculopathy Proposed Procedure: Operation Date: 02/10/21 07:00 Proposed Procedures p Lumbar Spine Decompression L4/5 S1 27761 M48.062(Not Applicable) - Daniel Kaur, DO Any changes to Pre-Anesthetic Assessment?: No Last Intake: Intake Last Liquid Date 02/09/21 Last Liquid Time 19:00 Last Solid Date 02/09/21 Last Solid Time 19:00 Vitals: Temperature 97.4 F L 02/10/21 05:56 Temperature Source Temporal Artery S can 02/10/21 05:56 Pulse Rate 86 02/10/21 05:56 Pulse Rhythm 02/10/21 05:56 Pulse Strength 3+ Normal 02/10/21 05:56 Respiratory Rate 18 02/10/21 05:56 Blood Pressure 125/71 02/10/21 05:56 Blood Pressure Diane n 89 02/10/21 05:56 Pulse Oximetry 94 02/10/21 05:56 Oxygen Delivery Me thod 02/10/21 05:56 Exam: Pre-Anes Outpt Exam: alert, oriented x 3, clear to auscultation bilaterally and regular rate & rhythm Cardiac Studies: No Data to Display
--- NOTE | 2021-02-10 06:54 | PM.HP ---
Providers/Chief Complaint Primary Care Provider: Ayan Jay MD Chief Complaint: Spinal stenosis History of Present Illness Maura Hermosillo is a 51 year old female evaluation of back pain with no known injury. 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 She describes low back pain with everything from the waist down being numb. She has tried epidural injections with no relief. She does not feel physical therapy would be beneficial due to the amount of pain she is in. Chief Complaint: low back pain Onset: 40 years - worse over the last 7 years Duration: years Characteristics: ache,numbness, tingling, Severity: 11/08 Location: low back Radiating symptoms: numbness to bilat lower extremities Aggravating factors: everything Alleviating factors: heat with minimal relief Neuro deficits: denies weakness, incontinence of bowel/bladder, saddle anesthesia. Prior tx: Dr. Perry- epidural steroid injection with relief lasting less than one day. She does not think she could do physical therapy due to pain. Review of Systems Narrative: General ROS: negative for weight changes, fever ENT ROS: negative for nasal congestion, drainage or bleeding, sore throat, dysphagia or ear pain Eyes: PERRL Hematological and Lymphatic ROS: negative for swollen glands or abnormal bleeding Endocrine ROS: negative for polyuria/polydpsia or new changes in weight Respiratory ROS: negative for cough, shortness of breath, or wheezing Cardiovascular ROS: negative for chest pain or dyspnea on exertion Gastrointestinal ROS: negative for reflux, abdominal pain, change in bowel habits, or black or bloody stools Musculoskeletal ROS: negative for back pain, neck pain, or joint pain or swelling except for current problem Neurological ROS: negative for TIA or stoke symptoms Skin: no rashes Medications/Allergies Home Medications Medication Instructions Recorded Confirmed Last Taken Type apixaban 5 mg tablet 5 mg PO BID@0800,199904/04/19 02/10/21 02/07/21 History nitroglycerin 0.4 mg SUBLINGUAL Q5M PRN 05/21/20 02/03/21 Unknown History pantoprazole [Protonix] 40 mg PO BID@0800,199905/21/20 02/10/21 02/10/21 History pregabalin [Lyrica] 100 mg PO TID@,05/21/20 02/10/2121 History cyanocobalamin (vitamin B-12) 1,000 mcg IM Q30D 07/30/20 02/10/21 02/09/21 History metoclopramide HCl [Reglan] 10 mg PO Q6H PRN #20 tab 07/30/20 02/10/21 02/09/21 Rx folic acid 1 mg tablet 1 mg PO DAILY@0800 #30 tab 08/13/20 02/10/21 02/09/21 Rx methotrexate sodium 25 mg/mL 25 mg SUBCUT Q7D 08/13/20 02/10/21 Unknown History injection solution albuterol sulfate 90 mcg/actuation 1 inh INHALATION QID PRN #8.5 g 10/10/20 02/10/21 Unknown Rx aerosol inhaler umeclidinium 62.5 mcg-vilanterol See Rx Instructions .ROUTE 10/10/20 02/10/21 02/10/21 Rx 25 mcg/actuation powdr for .COMPLEX #60 ea inhalation abatacept 125 mg/mL subcutaneous 125 mg SUBCUT .qweek #4 ml 10/17/20 02/03/21 Unknown Rx syringe diclofenac sodium 1 % topical gel 2 g TOPICAL QID #100 g 10/17/20 02/10/21 02/09/21 Rx insulin syringe-needle U-100 1 mL #100 each 01/14/21 02/03/21 Unknown Rx 30 gauge x 07/14 triamcinolone acetonide 0.1 % 1 applic TOPICAL DAILY #80 g 01/16/21 02/10/21 02/09/21 Rx topical cream buspirone 15 mg tablet 15 mg PO BID #60 tab 02/04/21 02/10/21 02/09/21 Rx paroxetine HCl 20 mg tablet 20 mg PO DAILY #30 tab 02/04/21 02/10/21 02/09/21 Rx quetiapine 200 mg tablet 200 mg PO DAILY #30 tab 02/04/21 02/10/21 02/09/21 Rx quetiapine 300 mg tablet 300 mg PO BEDTIME #30 tab 02/04/21 02/10/21 02/09/21 Rx ropinirole 4 mg tablet 4 mg PO BEDTIME #30 tab 02/04/21 02/10/21 02/09/21 Rx Allergies Allergy/AdvReac Type Severity Reaction Status Date / Time coconut oil Allergy Severe anaphylaxis Verified 02/03/21 15:09 mushroom Allergy Severe trouble Verified 02/03/21 15:09 breathing duloxetine [From Cymbalta] Allergy Intermediate dizziness,v Verified 02/03/21 15:09 omiting atorvastatin AdvReac Intermediate does not Verified 02/03/21 15:09 want to take it PFSH Acute PFSH: Medical History (Updated 02/10/21 @ 06:59 by Daniel Kaur DO) Alcohol dependence, in remission Chronic post-traumatic stress disorder CKD (chronic kidney disease) Hydronephrosis of right kidney Immunosuppression Lumbar radiculitis Lumbar spondylosis Obstructive sleep apnea Osteoarthritis of knees, bilateral Other stimulant dependence, in remission Peripheral neuropathy Psoriasis Psoriatic arthritis Psychiatric care Psychiatric care Pulmonary embolism Rectal cancer Restless leg syndrome Surgical History Colostomy in place H/O tubal ligation H/O: hysterectomy History of resection of rectum Family History Other Cancer Social History Smoking and tobacco status: current every day smoker Quit status (tobacco): has quit using tobacco Year quit tobacco: 2020 Former quit date comment: Hx of 1PPD x 46 Years Smoking risk assessment/counseling performed?: No Alcohol intake: current Alcohol intake frequency: holidays/special occasions only Counseling given: No Counseling given: No Lives independently: Yes Household members: none Marital status: Legally Current occupational status: disabled History of recent travel: No Current gender identity: Female Vitals/I&O/Wt Last Vital Signs Temp 97.4 F L 02/10/21 05:56 Pulse 86 02/10/21 05:56 Resp 18 02/10/21 05:56 BP 125/71 02/10/21 05:56 Pulse Ox 94 02/10/21 05:56 Physical Exam Narrative: EXAM NARRATIVE: CONSTITUTIONAL: The patient is a normal appearing [] in no apparent distress. GENERAL: Patient in no acute distress. CARDIAC: Regular rate and rhythm. CHEST: Normal inspiratory effort, normal respiratory rate. ABDOMEN: Soft and nontender. SKIN: Clear, warm and intact. NEURO?PSYCH: The patient is alert and oriented to person, place and time. Sensorv /SILT Motor StrengthShoulder abduction C5 5/5Wrist extension C6 5/5Elbow extension C7 5/5Hand Subpoena Server C8 5/5Finger abduction T15/5 Radial/ Ulnar/ Median n intact LowerSensory (SILT)Motor StrengthHin flexion L2/3Ant/inner thigh 5/5Hip adduction L2/3 5/5Knee extension L4 Lat thigh, 5/5Toe dorsiflexion L5 5/5Ankle dorsiflexion L5/ H63Iwrmfxk flexion S1 5/5 DTRBleeps 2+Triceps 2+Brachioradialis 2+Patellar 2+Achilles 2+ MUSCULOSKELETAL: [] UPPEREXTREMITIES: The patient had full active ROM in fingers, wrist, elbow, and shoulder. The patient demonstrated ability to fully flex/extend/abduct/adduct fingers, make ok sign, cross 2nd/3rd digits, extend 1st digit fully.. Radial pulse 2+, CR<2 seconds. LOWER EXTREMITIES: Pt has full, active ROM of toes, ankle, knee, and hip. Dorsalis pedis/posterior tibialis pulses 2+, CR<2 seconds. SPINE: Skin warm, dry, intact. 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
--- NOTE | 2021-02-10 07:49 | PM.OP ---
Operative Report Date of procedure: February 10, 2021 Pre-op Diagnosis: lumbar stenosis with neurogenic claudication Post-op diagnosis: same Procedure Done: 1. bilateral L5/S1 laminectomy with partial facetectomies Surgeon: Daniel Kaur Operator Receptionist: Rubin Salcedo Operator Receptionist: The surgical first assistant, Rubin Salcedo, SMITH was needed for his expertise under the microscope. He was important and necessary throughout the procedure to complete in a safe and timely manner. He assisted with patient positioning prepping and draping tissue retraction suctioning of the operative field protection of the dural sac and tissue closure Anesthesia: General Estimated blood loss (mL): 10 Condition: stable Disposition: PACU Procedure: 1. bilateral L5/S1 laminectomy with partial facetectomies Patient is brought to the operative suite. After undergoing anesthesia they are placed in the prone position. All areas of impingement are well padded. Patient is then prepped and draped in the normal sterile fashion. A skin incision is made over the L5/S1 level. This is confirmed under c-arm guidance. A series of dilators are passed and the tubular retractor is docked on the L5 lamina. A bovie is used to clear the soft tissue off the lamina and the L 5/S1 facet joint. A high speed donna is then used to perform the laminectomy and take down the medial aspect of the L 5/S1 facet joint. A kerrison rongeure was then used to take down the remaining lamina and smooth the edged of the laminectomy up to the point where the ligamentum flavum attaches. Attention was then brought to the medial aspect of the facet joint. The remaining medial aspect of the superior and inferior aspect of the facet joint were taken down with the kerrison from the pedicle of L5 to S1. The facet joint had significant hypertrophy. Attention was then brought to the Ligamentum Flavum. The ligament was taken down from the lamina of L5 to S1 and out medially to the remaining facet joint. The ligament was thick. The dura was then exposed. The dura was in good repair. The L5 nerve was then traced with a curette out the L5/S1 foramen and found to be adequately decompressed. The S1 nerve was traced with a curette around the S1 pedicle. The lateral recess was opened with a kerrison helping to further decompress the S1 nerve. The tubular retractor was then tilted to the contralateral side. The bovie was used to take down the soft tissue on the spinous process. The high speed donna was used to take down the spinous process and then the contralateral lamina of L5. The kerrison rongeur was used to take down the remaining lamina to the point where the ligamentum flavum attached and the ligamentum flavum was taken down from L5 to S1. The kerrison rongeur was then used to reach across and take down the medial aspect of the contralateral L5/S1 facet joint.The currete was used to trace the contralateral L5 nerve out the L5/S1 foramen to make sure it was decompressed adequatesly and the S1 was traced around the S1 pedicle. The lateral recess was opened further with the kerrison to ensure the S1 is adequately decompressed. Wound is then irrigated copiously with saline and surgiflo is used to stop any bleeding. The tubular retractor is removed and the wound is closed with vicryl and monocryl suture. Glue is then used to protect the wound. A sterile dressing is then placed. Patient was then placed in the supine position and transferred to the PACU in stable condition.
[2021-02-10] MEDS: vancomycin 1,000 MG SDV 1000 MG XX (07:50)
[2021-02-10] MEDS: HYDROmorphone 1 mg/mL INJ 1 mL 0.5 MG IVP (09:03)
[2021-02-10] MEDS: HYDROcodone-acetaminophen 5-325 mg Tablet 1 TAB PO (09:21)
--- NOTE | 2021-02-10 14:56 | ANE.PACU2 ---
Inpatient post-anesthesia follow up: Airway intact: Yes Vital signs: Temperature 97.6 F Pulse Rate 80 Respiratory Rate 18 Blood Pressure 94/55 Pulse Oximetry 93 Oxygen Delivery Me thod Room Air Oxygen Flow Rate 6 Fraction of Inspir ed Oxygen Hydration adequate: Yes Nausea and vomiting: No Pain level: 3 Mental status: Baseline
== END 2021-02-10 09:55 | disposition home or self-care (01) ==
PROVIDERS: PCP Family Medicine; Visit Provider Orthopaedic Surgery
PROC: (CPT 63005; principal; 2021-02-10 07:00)
DX: M48.062 Spinal stenosis, lumbar region with neurogenic claudication (principal); N18.9 Chronic kidney disease, unspecified; G47.33 Obstructive sleep apnea (adult) (pediatric); M17.0 Bilateral primary osteoarthritis of knee; F17.210 Nicotine dependence, cigarettes, uncomplicated; J44.9 Chronic obstructive pulmonary disease, unspecified; Z86.718 Personal history of other venous thrombosis and embolism; Z86.711 Personal history of pulmonary embolism
CPT/HCPCS: 63047; 72100; 76000; 96374; J0690; J1100; J1170; J1200; J2250; J2370; J2405; J2704; J2710; J3010; J3370; J3490; J7030

== ENCOUNTER → 2021-02-13 07:19 | Outpatient (BNVA) | payer MEDICARE, MEDICAID, SELFPAY | PROVIDERS: PCP Family Medicine; Visit Provider Psychiatry & Neurology Psychiatry | DX: F33.42 Major depressive disorder, recurrent, in full remission (principal); G47.33 Obstructive sleep apnea (adult) (pediatric); G25.81 Restless legs syndrome; E89.41 Symptomatic postprocedural ovarian failure; F14.21 Cocaine dependence, in remission; F17.200 Nicotine dependence, unspecified, uncomplicated; F10.21 Alcohol dependence, in remission; F15.21 Other stimulant dependence, in remission | CPT/HCPCS: 99214 ==

== ENCOUNTER 2021-02-28 10:34 | Outpatient (CLI) | payer MEDICARE, MEDICAID, SELFPAY ==
--- NOTE | 2021-02-28 | USCV_ITS ---
Maura Hermosillo Age: 51 Gender: F : 1970 Exam Date: 02/28/2021 11:01 Ordering Phys: Ayan Jay MD Technologist: Celine Ramirez Exam Location: [facility] [place] Indication: PAIN WHEN FLEXES RT FOOT. HISTORY: Pain in Rt leg when rt foot flexed PROCEDURES: Venous duplex imaging was performed in only the right lower extremity. The following venous structures were evaluated: common femoral vein, profunda vein, proximal portion of the greater saphenous vein, superficial femoral vein, and the popliteal vein and Rt. SSV. In addition, the posterior tibial and peroneal trunk were evaluated. Serial compression, augmentation maneuvers, and spectral Doppler flow evaluation were performed. FINDINGS: Normal 2-D Doppler and augmentation and compressibility throughout the lower extremity venous structures. Additional imaging through the proximal calf veins also reveals no thrombus. Limited evaluation of the greater saphenous vein is patent with no thrombus.. CONCLUSIONS No evidence of right lower extremity DVT. Enlarged lymph node right groin likely reactive Jose Barlow MD (Electronically Signed) Final Date: 28 February 2021 11:45 S
--- NOTE | 2021-02-28 10:52 | XR_ITS ---
WS: [id number] HIP WITH PELVIS LEFT TECHNIQUE: 3 views of the left hip with pelvis CLINICAL INFORMATION: R LEG PAIN/LOW BACK PAIN COMPARISON: None. FINDINGS: Moderate arthritis left hip. Normal femoral head and neck. No acute fractures. Visualized left pubic rami appear intact. Surgical changes in the pelvis partially visualized. XR/XR hip LT 2-3V wo/w pel* [id number] IMPRESSION: No acute left hip fractures. Tonnis classification:
--- NOTE | 2021-02-28 10:52 | XR_ITS ---
WS: [id number] LUMBAR SPINE TECHNIQUE: 3 views of the lumbar spine CLINICAL INFORMATION: R LEG PAIN/LOW BACK PAIN COMPARISON: None. FINDINGS: Five [id number] lumbar vertebral bodies. Mild lumbar curve convex left. Surgical clips in the le ft midabdomen and left lower quadrant. Disc space narrowing worse L4-5 and L5-S1. Mild facet arthropa thy L5-S1. Pelvic phleboliths. XR/XR lumbar spine 2-3V* [id number] IMPRESSION: 1. Mild lumbar curve convex left. Mild spondylitic changes. 2. Disc space narrowing worse L4-L5 and L5-S1. 3. Mild facet arthropathy L5-S1.
--- NOTE | 2021-02-28 10:52 | XR_ITS ---
WS: [id number] SACRUM TECHNIQUE: 3 views of the sacrum and coccyx CLINICAL INFORMATION: R LEG PAIN/LOW BACK PAIN COMPARISON: None. FINDINGS: Osteopenia. Pelvic phleboliths. Sutures within the pelvis. Osteopenia. Coccyx and sacrococcygeal junc tion appear normal. Degenerative arthritis sacroiliac joints lower lumbar spine. Pelvic phleboliths. Normal visualized pubic rami. XR/XR sacrum coccyx min 2V [id number] IMPRESSION: 1. Osteopenia. 2. Coccyx and sacrococcygeal junction appear normal. No acute fractures.
== END 2021-02-28 10:35 | disposition home or self-care (01) ==
LOC: RAD 10:39
PROVIDERS: PCP Family Medicine; Visit Provider Family Medicine
DX: M25.552 Pain in left hip (principal); M79.604 Pain in right leg; M54.50 Low back pain, unspecified; M85.88 Other specified disorders of bone density and structure, other site; M47.817 Spondylosis without myelopathy or radiculopathy, lumbosacral region
CPT/HCPCS: 72100; 72220; 73502; 93971

== ENCOUNTER 2021-07-07 18:12 | Emergency (ER) | payer MEDICARE, MEDICAID, SELFPAY ==
[2021-07-07 18:30] VITALS: BP 140/87; PULSE 86; RESP 16; TEMP 36.7; O2SAT 96; BMI 33.4
[2021-07-07 18:36] VITALS: BP 137/93; PULSE 83; RESP 28; TEMP 36.6; O2SAT 96
--- NOTE | 2021-07-07 18:45 | CTR_ITS ---
PROCEDURE INFORMATION: Exam: CT Chest With Contrast; Diagnostic Exam date and time: 07/07/2021 8:28 PM Age: 51 years old Clinical indication: Pain; Left-sided; Patient HX: Anterior upper chest palpable mass per patient TECHNIQUE: Imaging protocol: Diagnostic computed tomography of the chest with contrast. Radiation optimization: All CT scans at this facility use at least one of these dose optimization techniques: automated exposure control; mA and/or kV adjustment per patient size (includes targeted exams where dose is matched to clinical indication); or iterative reconstruction. Contrast material: OMNI 300; Contrast volume: 50 ml; Contrast route: INTRAVENOUS (IV); COMPARISON: 1. CT angio chest PE protcl [id number] 05/23/2019 8:36 AM 2. CR XR chest 1V portable [id number] 05/22/2020 8:15 AM RADIATION DOSE METRICS: Total DLP (mGy-cm): 849.48 FINDINGS: Lungs: There is an area of consolidation right middle lobe new compared with 05/22/2020 worrisome for pneumonia. There are some areas of linear platelike atelectasis in the lingula and right lower lobe and left lower lobe. Pleural spaces: Unremarkable. No pneumothorax. No pleural effusion. Heart: Unremarkable. No cardiomegaly. No pericardial effusion. Lymph nodes: There are small paratracheal lymph nodes but no adenopathy in the chest. Vasculature: There is no thoracic aortic aneurysm or dissection. Bones/joints: Unremarkable. No acute fracture. Soft tissues: There is some abnormal soft tissue density upper-outer quadrant right breast new compared with the previous study. This is not fully imaged on this examination. Please correlate with physical examination findings. Further imaging or valuation suggested as indicated by the patient's clinical history and physical examination findings. CT/CT chest w con* [id number] IMPRESSION: 1. Right middle lobe consolidation worrisome for pneumonia. 2. Soft tissue abnormality in the right breast. Please correlate with clinical and physical exam findings.
--- NOTE | 2021-07-07 18:45 | ECG_ITS ---
[facility] Test Date: 2021-07-07 Pat Name: Maura Hermosillo Department: Room: Gender: Female Credit Charge Authorizer: : 1970 Requested By: Samuel Monteiro Order Number: [id number] Tres MD: Tamar Lane M.D. Measurements Intervals [place] Rate: 82 P: 67 IA: 162 QRS: 59 QRSD: 98 T: 61 QT: 369 QTc: 431 Interpretive Statements SINUS RHYTHM POSSIBLE RIGHT VENTRICULAR CONDUCTION DELAY [RSR (QR) IN V1/V2] NONSPECIFIC T-WAVE ABNORMALITY Compared to ECG 03/12/2020 00:49:19 T-wave abnormality now present Electronically Signed On 07-07-2021 21:38:[address] M.D. [email or web address] [facility] mature adult care [email or web address], LLCakron children[facility].[email or web address]/OM/[id number]
--- NOTE | 2021-07-07 18:50 | W.ED.NECK ---
HPI - Neck Pain/Injury General: Chief Complaint: Neck Pain/Injury Stated Complaint: Swollen Under Neck Time Seen by Provider: 07/07/21 18:39 Source: patient Mode of arrival: ambulatory Limitations: no limitations History of Present Illness: 51-year-old female has history of chronic neck pain states that she has been having some swelling actually to her anterior upper chest she does have she states a mass that she can palpate that is been there for the last 4 to 5 days and is very tender to touch she does have some shooting pain to her left arm denies any difficulty swallowing or breathing denies any shortness of breath Associated symptoms: Denies headache(s) or nausea Review of Systems Const: Denies: fever(s), chills, body aches or change in appetite Eyes: Denies: blurry vision or eye discomfort ENMT: Denies: throat pain or dental pain Card: Reports: chest pain Resp: Denies: dyspnea GI: Denies: abdominal pain, nausea, vomiting or diarrhea : Denies: dysuria Musc: Denies: neck pain or back pain Skin/Breast: Denies: rash Neuro: Denies: headache(s) Psych: Denies: depression Alcon/Lymph: Denies: easy bruising All/Imm: Denies: urticaria PFSH ED PFSH: Medical History Alcohol dependence, in remission Chronic post-traumatic stress disorder CKD (chronic kidney disease) Hydronephrosis of right kidney Immunosuppression Lumbar radiculitis Lumbar spondylosis Obstructive sleep apnea Osteoarthritis of knees, bilateral Other stimulant dependence, in remission Peripheral neuropathy Psoriasis Psoriatic arthritis Psychiatric care Psychiatric care Pulmonary embolism Rectal cancer Restless leg syndrome Surgical History Colostomy in place H/O tubal ligation H/O: hysterectomy History of resection of rectum Family History Other Cancer Social History Smoking and tobacco status: current every day smoker Quit status (tobacco): has quit using tobacco Year quit tobacco: 2020 Former quit date comment: Hx of 1PPD x 46 Years Smoking risk assessment/counseling performed?: No Alcohol intake: current Alcohol intake frequency: holidays/special occasions only Counseling given: No Counseling given: No Lives independently: Yes Household members: none Marital status: Legally Current occupational status: disabled History of recent travel: No Current gender identity: Female Physical Exam Const: COMMON NORMALS: no acute distress, patient oriented x3 and healthy appearing HENMT: COMMON NORMALS: normocephalic and atraumatic HEAD & SCALP: normocephalic and atraumatic Eye: COMMON NORMALS: Equal, round and reactive pupils present and EOMs intact bilaterally PUPIL: Yes Equal, round and reactive pupils present Neck/C-Spine: COMMON NORMALS: full ROM and supple Chest: COMMONS NORMALS: normal inspection of the chest OTHER: Tenderness to upper chest right in her sternal notch she does have some swelling there as well and tenderness Resp: COMMON NORMALS: normal respiratory effort, No retractions, No use of accessory muscles and clear to auscultation bilaterally AUSCULTATION: clear to auscultation bilaterally Cardio: COMMON NORMALS: regular rate, regular rhythm and No murmurs present (Cardio) RATE: regular rate RHYTHM: regular rhythm GI: COMMON NORMALS: Normal to inspection, nondistended, normoactive bowel sounds present, Soft to palpation, non-tender and no masses PALPATION: Yes Soft to palpation Extremity: COMMON NORMALS: normal to inspection and full ROM Neuro: COMMON NORMALS: patient oriented x3, moves all extremities and no focal motor deficits Psych: COMMON NORMALS: mental status grossly normal, Normal thought process present and cooperative THOUGHT PROCESS: Normal thought process present Skin: COMMON NORMALS: no rashes or lesions noted and no wounds GENERAL SKIN EXAM: no rashes or lesions noted Course Vital Signs: Vital signs: Vital Signs Temperature 98 F 07/07/21 22:11 Pulse Rate 87 07/07/21 22:11 Respiratory Rate 22 H 07/07/21 22:11 Blood Pressure 117/86 07/07/21 22:11 Pulse Oximetry 92 07/07/21 22:11 MDM - Neck Pain/Injury Medical Decision Making Patient presents here with chest pain likely from a pneumonia. Patient states she feels improved here and would like to go home we will treat the pneumonia initially at home with doxycycline she is to follow-up with PCP in 4 days for repeat x-ray I informed her if her symptoms worsen at all she is to return to the ER she understands agrees to plan she has no signs of acute coronary syndrome her pain is likely from her pneumonia or also chest wall pain and she was point tender on exam no abscess is noted Lab Data : 07/07/21 19:34 07/07/21 19:[address] 07/07/21 18:45 IMPRESSION: 1. Right middle lobe consolidation worrisome for pneumonia. 2. Soft tissue abnormality in the right breast. Please correlate with clinical and physical exam findings. Laboratory Results WBC 12.5 10^3/uL (4.0-10.0) H 07/07/21 19:34 RBC 3.43 10^6/uL (4.1-5.3) L 07/07/21 19:34 Hgb 10.7 g/dL (11.5-15.3) L 07/07/21 19:34 Hct 31.3 % (37.0-47.0) L 07/07/21 19:34 MCV 91.3 fl (81-99) 07/07/21 19:34 MCH 31.2 pg (28.0-34.0) 07/07/21 19:34 MCHC 34.2 g/dL (30.0-36.0) 07/07/21 19:34 RDW 13.6 % (12.1-15.1) 07/07/21 19:34 Plt Count 400 10^3/cmm (130-400) 07/07/21 19:34 MPV 9.6 fL (7.4-10.4) 07/07/21 19:34 Neut % (Auto) 80.0 % 07/07/21 19:34 Lymph % (Auto) 12.7 % 07/07/21 19:34 Sampson % (Auto) 5.5 % 07/07/21 19:34 Eos % (Auto) 0.3 % 07/07/21 19:34 Baso % (Auto) 0.2 % 07/07/21 19:34 Neut # (Auto) 9.99 10^3/uL (1.8-7.7) H 07/07/21 19:34 Lymph # (Auto) 1.6 10^3/uL (0.8-4.8) 07/07/21 19:34 Sampson # (Auto) 0.7 10^3/uL (0.2-0.9) 07/07/21 19:34 Eos # (Auto) 0.0 10^3/uL (0.0-0.8) 07/07/21 19:34 Baso # (Auto) 0.0 10^3/uL (0.0-0.1) 07/07/21 19:34 Nucleated RBC % (auto) 0 % 07/07/21 19:34 Nucleated RBCs # 0.0 /100WBC 07/07/21 19:34 Sodium 134 mmol/L (136-145) L 07/07/21 19:34 Potassium 3.0 mmol/L (3.5-5.1) L 07/07/21 19:34 Chloride 94 mmol/L (98-107) L 07/07/21 19:34 Carbon Dioxide 27 mmol/L (22-29) 07/07/21 19:34 Anion Gap 16.0 (5-19) 07/07/21 19:34 BUN 6 mg/dL (6-20) 07/07/21 19:34 Creatinine 0.6 mg/dL (0.5-0.9) 07/07/21 19:34 GFR Calculation 104.6 mL/min (90-130) 07/07/21 19:34 Glucose 99 mg/dL (65-115) 07/07/21 19:34 Calculated Osmolality 276 mOsm/kg (285-295) L 07/07/21 19:34 Calcium 9.0 mg/dL (8.5-10.5) 07/07/21 19:34 Total Bilirubin 0.6 mg/dL (0.15-1.2) 07/07/21 19:34 AST 36 U/L (0-32) H 07/07/21 19:34 ALT 47 U/L (0-33) H 07/07/21 19:34 Alkaline Phosphatase 139 IU/L (35-105) H 07/07/21 19:34 Total Protein 7.5 g/dL (6.6-8.7) 07/07/21 19:34 Albumin 3.0 g/dL (3.5-5.2) L 07/07/21 19:34 Globulin 4.5 g/dL (1.3-4.6) 07/07/21 19:34 EKG Data EKG 1: I personally reviewed and interpreted this EKG as follows: EKG interpretation date: 07/07/21 EKG interpretation time: 19:50 Interpretation: nsr hr [address] or t wave abnormalities qrs 98 qtc 407 Discharge Plan Discharge Patient Disposition: Home Clinical Impression: Pneumonia Qualifiers: Aspiration pneumonia type: unspecified Laterality: right Lung location: middle lobe of lung Condition: Stable Prescriptions: New hydrocodone-acetaminophen 5-325 mg tablet 1 tab PO Q6H PRN (Reason: pain) Qty: 14 0RF doxycycline hyclate 100 mg tablet 100 mg PO BID 10 Days Qty: 20 0RF No Action Orencia 125 mg/mL syringe 125 mg SUBCUT .qweek Qty: 4 3RF Eliquis 5 mg tablet 5 mg PO BID@0800,2000 0RF buspirone 15 mg tablet 15 mg PO BID Qty: 60 5RF paroxetine HCl [Paxil] 20 mg tablet 20 mg PO DAILY Qty: 30 5RF quetiapine 300 mg tablet 300 mg PO BEDTIME Qty: 30 5RF Rx Instructions: Take with 200mg dose for total dose of 500mg. quetiapine 200 mg tablet 200 mg PO DAILY Qty: 30 5RF Rx Instructions: Take with 300mg dose for total daily dose of 500mg. ropinirole 4 mg tablet 4 mg PO BEDTIME Qty: 30 5RF Rx Instructions: take 2 hours before bed methotrexate sodium 25 mg/mL solution 25 mg SUBCUT Q7D 0RF Rx Instructions: on fridays albuterol sulfate 90 mcg/actuation HFA aerosol inhaler 1 inh inhalation QID PRN (Reason: shortness of breath or wheezing) Qty: 8.5 3RF Anoro Ellipta 62.5-25 mcg/actuation blister with device See Rx Instructions .ROUTE .COMPLEX Qty: 60 3RF Dose Instruction: INHALE 1 PUFF BY MOUTH EVERY 24 HOURS Rx Instructions: INHALE 1 PUFF BY MOUTH EVERY 24 HOURS (DME) insulin syringe-needle U-100 [TRUEplus Insulin] 1 mL 30 gauge x 5/16 syringe See Rx Instructions .ROUTE .MEDSUPPLY Qty: 100 2RF Rx Instructions: As directed diclofenac sodium 1 % gel 2 g topical QID Qty: 100 2RF Rx Instructions: apply to single elbow, wrist or hand; for hand includes palm/fingers/back of hand pantoprazole [Protonix] 40 mg Tablet,Delayed Release (Dr/Ec) 40 mg PO BID@0800,2000 0RF nitroglycerin 0.4 mg Tablet, Sublingual 0.4 mg SUBLINGUAL Q5M PRN (Reason: Chest Pain) 0RF pregabalin [Lyrica] 100 mg Capsule 100 mg PO TID@08,12,20 0RF Discharge Orders: Discharge ED (Routine); Ordered 07/07/21 Ordered By: Samuel Monteiro Referrals: Ayan Jay MD [Primary Care Provider] - Discharge Diet: Advance as tolerated Discharge Activity: Resume usual activity Patient Instructions: Pneumonia (ED) Coding Level of Care Code ED Community Support Specialist for Chg Fwd Exam Comprehensive
[2021-07-07 19:40] LABS: Basophils % 0.2 %; Eosinophils % 0.3 %; Hematocrit 31.3 % (37.0-47.0); Hemoglobin 10.7 g/dL (11.5-15.3); Lymphocytes # 1.6 10^3/uL (0.8-4.8); Lymphocytes % 12.7 %; Mean Corpuscular HGB Conc 34.2 g/dL (30.0-36.0); Mean Corpuscular Hemoglobin 31.2 pg (28.0-34.0); Mean Corpuscular Volume 91.3 fl (81-99); Mean Platelet Volume 9.6 fL (7.4-10.4); Monocytes # 0.7 10^3/uL (0.2-0.9); Monocytes % 5.5 %; Neutrophils # 9.99 10^3/uL (1.8-7.7); Nucleated Red Blood Cells % 0 %; Platelet Count 400 10^3/cmm (130-400); Red Blood Count 3.43 10^6/uL (4.1-5.3); Red Cell Distribution Width 13.6 % (12.1-15.1); White Blood Count 12.5 10^3/uL (4.0-10.0)
[2021-07-07] MEDS: HYDROmorphone 1 mg/mL INJ 1 mL IVP ×2 (19:42→21:11)
[2021-07-07] MEDS: ondansetron 2 mg/ML SDV 2 mL 4 MG IVP (19:43)
[2021-07-07 20:08] LABS: Alanine Aminotransferase 47 U/L (0-33); Alkaline Phosphatase 139 IU/L (35-105); Aspartate Amino Transferase 36 U/L (0-32); Blood Urea Nitrogen 6 mg/dL (6-20); Carbon Dioxide 27 mmol/L (22-29); Chloride 94 mmol/L (98-107); Globulin 4.5 g/dL (1.3-4.6); Glomerular Filtration Rate 104.6 mL/min (90-130); Glucose 99 mg/dL (65-115); Osmolality Calculated 276 mOsm/kg (285-295); Sodium 134 mmol/L (136-145); Total Bilirubin 0.6 mg/dL (0.15-1.2); Total Protein 7.5 g/dL (6.6-8.7)
[2021-07-07] MEDS: iohexol 300 mg/mL 100 mL Btl IV (20:27)
[2021-07-07 20:36] VITALS: BP 127/51; PULSE 88; RESP 20; O2SAT 92
[2021-07-07 21:11] VITALS: RESP 22; O2SAT 94
[2021-07-07] MEDS: doxycycline 100 mg Tablet PO (21:56)
[2021-07-07] MEDS: HYDROcodone-acetaminophen 5-325 mg Tablet 1 TAB PO (21:56)
[2021-07-07 22:00] VITALS: BP 117/86; PULSE 87; RESP 22; O2SAT 92
[2021-07-07 22:11] VITALS: BP 117/86; PULSE 87; RESP 22; TEMP 36.6; O2SAT 92
== END 2021-07-07 22:12 | disposition home or self-care (01) ==
PROVIDERS: Emergency Provider Emergency Medicine; PCP Family Medicine
DX: J18.9 Pneumonia, unspecified organism (principal); F17.210 Nicotine dependence, cigarettes, uncomplicated; Z79.01 Long term (current) use of anticoagulants; Z79.51 Long term (current) use of inhaled steroids; Z79.4 Long term (current) use of insulin
CPT/HCPCS: 71260; 80053; 85025; 93005; 96374; 96375; 96376; 99284; J1170; J2405; Q9967

== ENCOUNTER 2021-07-10 15:03 | Emergency (ER) | payer MEDICARE, MEDICAID, SELFPAY ==
--- NOTE | 2021-07-10 15:48 | XRR_ITS ---
PROCEDURE INFORMATION: Exam: XR Chest Exam date and time: 07/10/2021 4:51 PM Age: 51 years old Clinical indication: Chest wall pain; Additional info: Chest pain TECHNIQUE: Imaging protocol: XR of the chest. Views: 1 view. COMPARISON: CT chest w con* [id number] 07/07/2021 8:28 PM FINDINGS: Lungs: Right mid lung subsegmental airspace opacification, decreased compared to prior CT scan may reflect a resolving pneumonia, continued follow-up to ensure resolution advised. Pleural spaces: Unremarkable. No pleural effusion. No pneumothorax. Heart/Mediastinum: Unremarkable. No cardiomegaly. Bones/joints: Unremarkable. XR/XR chest 1V portable [id number] IMPRESSION: Right mid lung subsegmental airspace opacification, decreased compared to prior CT scan may reflect a resolving pneumonia, continued follow-up to ensure resolution advised.
[2021-07-10 16:14] LABS: Basophils % 0.6 %; Eosinophils # 0.1 10^3/uL (0.0-0.8); Eosinophils % 1.1 %; Hematocrit 34.8 % (37.0-47.0); Hemoglobin 11.8 g/dL (11.5-15.3); Lymphocytes # 1.4 10^3/uL (0.8-4.8); Lymphocytes % 20.1 %; Mean Corpuscular HGB Conc 33.9 g/dL (30.0-36.0); Mean Corpuscular Hemoglobin 31.1 pg (28.0-34.0); Mean Corpuscular Volume 91.8 fl (81-99); Mean Platelet Volume 9.2 fL (7.4-10.4); Monocytes # 0.3 10^3/uL (0.2-0.9); Monocytes % 4.7 %; Neutrophils # 5.05 10^3/uL (1.8-7.7); Neutrophils % 72.6 %; Nucleated Red Blood Cells % 0 %; Platelet Count 422 10^3/cmm (130-400); Red Blood Count 3.79 10^6/uL (4.1-5.3); Red Cell Distribution Width 14.1 % (12.1-15.1)
[2021-07-10 16:32] VITALS: BP 116/74; PULSE 90; RESP 20; TEMP 37.9; O2SAT 95; BMI 33.4
[2021-07-10 16:51] LABS: Alanine Aminotransferase 32 U/L (0-33); Albumin Level 2.9 g/dL (3.5-5.2); Alkaline Phosphatase 123 IU/L (35-105); Anion Gap 15.4 (5-19); Aspartate Amino Transferase 25 U/L (0-32); Blood Urea Nitrogen 9 mg/dL (6-20); Calcium 9.3 mg/dL (8.5-10.5); Carbon Dioxide 26 mmol/L (22-29); Chloride 97 mmol/L (98-107); Globulin 4.7 g/dL (1.3-4.6); Glomerular Filtration Rate 104.6 mL/min (90-130); Glucose 91 mg/dL (65-115); Osmolality Calculated 278 mOsm/kg (285-295); Potassium 3.4 mmol/L (3.5-5.1); Sodium 135 mmol/L (136-145); Total Bilirubin 0.4 mg/dL (0.15-1.2); Total Protein 7.6 g/dL (6.6-8.7)
[2021-07-10 16:58] LABS: Procalcitonin 0.14 ng/mL (0-0.5)
[2021-07-10 18:49] VITALS: BP 127/72; PULSE 84; RESP 15; TEMP 37.6; O2SAT 92
--- NOTE | 2021-07-10 19:42 | W.ED.GENADLT ---
HPI - General Adult General: Chief complaint: General Medical Stated complaint: Says her Pneumonia isnt getting any better Time Seen by Provider: 07/10/21 18:20 Source: patient Mode of arrival: ambulatory Limitations: no limitations History of Present Illness: This patient returns because she is having left-sided chest pain. She was here 3 days ago because of chest pain and was determined to be low risk for ACS at that time. She was treated empirically for what appeared to be pneumonia. She states that she still having left-sided chest pain. She states she feels swollen in that left side of her chest as well. She states it is worse with palpation movement or deep breaths. She denies any history of coronary artery disease, thromboembolic disease, trauma falls lifting injury etc. States has been taking her doxycycline previously prescribed. No one else is ill at home. Location: chest Severity: moderate Quality: sharp Pain Consistency: intermittent Associated symptoms: Reports chest pain and rash (Chronic plaque psoriasis); Deny dyspnea, headache(s), nausea, palpitations, syncope or vomiting Review of Systems Const: Denies: chills, body aches or change in appetite Eyes: Denies: change in vision ENMT: Denies: throat pain, odynophagia, change in hearing or nasal discharge Card: Reports: chest pain; Denies: palpitations, irregular heart rhythm, edema, swelling of feet/ankles, lightheadedness, syncope or pre-syncope Resp: Reports: non-productive cough; Denies: dyspnea, wheezing or stridor GI: Denies: abdominal pain, nausea or vomiting : Denies: flank pain, difficulty voiding, dysuria or urinary frequency Musc: Denies: neck pain, back pain, extremity pain or extremity swelling Skin/Breast: Reports: rash (Chronic plaque psoriasis) Neuro: Denies: headache(s), numbness in extremities, weakness in extremities, sensory changes or lack of coordination Psych: Reports: anxiety; Denies: mood swings Endo: Denies: polyuria, polydipsia or tired all the time Alcon/Lymph: Reports: easy bruising; Denies: easy bleeding PFS ED PFSH: Medical History Alcohol dependence, in remission Chronic post-traumatic stress disorder CKD (chronic kidney disease) Hydronephrosis of right kidney Immunosuppression Lumbar radiculitis Lumbar spondylosis Obstructive sleep apnea Osteoarthritis of knees, bilateral Other stimulant dependence, in remission Peripheral neuropathy Psoriasis Psoriatic arthritis Psychiatric care Psychiatric care Pulmonary embolism Rectal cancer Restless leg syndrome Surgical History Colostomy in place H/O tubal ligation H/O: hysterectomy History of resection of rectum Family History Other Cancer Social History Smoking and tobacco status: current every day smoker Quit status (tobacco): has quit using tobacco Year quit tobacco: 2020 Former quit date comment: Hx of 1PPD x 46 Years Smoking risk assessment/counseling performed?: No Alcohol intake: current Alcohol intake frequency: holidays/special occasions only Counseling given: No Counseling given: No Lives independently: Yes Household members: none Marital status: Legally Current occupational status: disabled History of recent travel: No Current gender identity: Female Physical Exam Narrative: EXAM NARRATIVE: She makes good eye contact. She appears to be uncomfortable. Const: COMMON NORMALS: patient oriented x3, no limitations and alert NUTRITIONAL APPEARANCE: overweight HENMT: COMMON NORMALS: normocephalic, atraumatic, Normal nasal mucous membranes and turbinates present and moist oral mucous membranes HEAD & SCALP: normocephalic and atraumatic NOSE: Normal nasal mucous membranes and turbinates present Eye: COMMON NORMALS: Equal, round and reactive pupils present, EOMs intact bilaterally, conjunctivae normal and no scleral icterus CONJUNCTIVA: Yes conjunctivae normal PUPIL: Yes Equal, round and reactive pupils present Neck/C-Spine: COMMON NORMALS: full ROM, no lymphadenopathy, no JVD and No carotid bruits Lymph: LYMPHATIC: no lymphadenopathy noted Chest: OTHER: Inspection of the chest reveals no rash ecchymosis erythema etc. Palpation reveals tenderness in the soft tissue of the left anterior chest. She also has tenderness extends into the left upper chest. Abduction of the left arm increases her symptoms. There is no axillary lymphadenopathy noted. Resp: COMMON NORMALS: normal respiratory effort, No retractions, No use of accessory muscles and clear to auscultation bilaterally AUSCULTATION: clear to auscultation bilaterally Cardio: COMMON NORMALS: no JVD, regular rate, regular rhythm, No murmurs present (Cardio) and Peripheral pulses 2+ throughout RATE: regular rate RHYTHM: regular rhythm PERIPHERAL PULSES: Peripheral pulses 2+ throughout GI: COMMON NORMALS: Normal to inspection, nondistended, normoactive bowel sounds present and Soft to palpation INSPECTION: Yes central obesity PALPATION: Yes Soft to palpation : COMMON NORMALS: Yes no CVA tenderness BLADDER/KIDNEY EXAM: Yes no CVA tenderness Back/Pelvis: COMMON NORMALS: no CVA tenderness, thoracic and lumbar spine normal to inspection, no thoracic nor lumbar tenderness and thoraco-lumbar ROM normal Extremity: COMMON NORMALS: normal to inspection, full ROM, capillary refill normal, no joint enlargement, no calf tenderness and no pedal edema Neuro: COMMON NORMALS: patient oriented x3, moves all extremities, no focal motor deficits and no sensory deficits noted SENSORIUM/ORIENTATION: Yes alert SPEECH: speech normal Psych: COMMON NORMALS: mental status grossly normal, Normal thought process present and cooperative THOUGHT PROCESS: Normal thought process present Skin: COMMON NORMALS: turgor normal NARRATIVE SKIN EXAM: She has multiple areas of salmon-colored plaques and a pasted on appearance to the skin of her extensor surfaces of her hands as well as scattered and smaller collections on her extensor surfaces of her elbows as well as her knees. GENERAL SKIN EXAM: turgor normal Course Reevaluation(s): Reevaluation #1: Patient is subjectively improved. Her vital signs are all in the normal range. She is afebrile, not hypoxic, not tachycardic etc. Normal blood pressure. No other new or focal findings on reexamination. Time: 21:44 Vital Signs: Vital signs: Vital Signs Temperature 98.7 F 07/10/21 20:26 Pulse Rate 77 07/10/21 20:26 Respiratory Rate 16 07/10/21 20:26 Blood Pressure 125/66 07/10/21 20:26 Pulse Oximetry 91 07/10/21 20:26 [facility] - General Adult Medical Decision Making Patient clinically stable and improved. She had return to the emergency department because she felt like she was getting worse however her chest x-ray is improving, her white count is remaining in the normal range and the rest of her laboratories are reassuring. She did have a slightly elevated temperature but still below normal febrile range on upon arrival. She has now clinically improved. I think at this point I have no indication or reason to change her therapy she has been on doxycycline now for 3 days and I think we should continue that and follow her course. I will add a 5-day course of prednisone to help with some of her musculoskeletal symptoms and inflammation. We also discussed return precautions such as increasing fever, increasing cough or other concerns at any time. The patient's past history may or may not be playing a component in her poor tolerance of what likely represents pleuritic pain from her infection. Her clinical exam reproduces her symptoms with palpation of the left anterior chest wall as well. She is currently on her DOAC and other medications making her risk of other issues such as a thromboembolic event etc. extremely unlikely. Medical Records I reviewed the patient's medical records. Lab Data I reviewed the patient's lab results. : 07/10/21 16:07 07/10/21 16:07 Radiology Impressions Chest X-Ray 07/10/21 15:48 IMPRESSION: Right mid lung subsegmental airspace opacification, decreased compared to prior CT scan may reflect a resolving pneumonia, continued follow-up to ensure resolution advised. Laboratory Results WBC 7.0 10^3/uL (4.0-10.0) 07/10/21 16:07 RBC 3.79 10^6/uL (4.1-5.3) L 07/10/21 16:07 Hgb 11.8 g/dL (11.5-15.3) 07/10/21 16:07 Hct 34.8 % (37.0-47.0) L 07/10/21 16:07 MCV 91.8 fl (81-99) 07/10/21 16:07 MCH 31.1 pg (28.0-34.0) 07/10/21 16:07 MCHC 33.9 g/dL (30.0-36.0) 07/10/21 16:07 RDW 14.1 % (12.1-15.1) 07/10/21 16:07 Plt Count 422 10^3/cmm (130-400) H 07/10/21 16:07 MPV 9.2 fL (7.4-10.4) 07/10/21 16:07 Neut % (Auto) 72.6 % 07/10/21 16:07 Lymph % (Auto) 20.1 % 07/10/21 16:07 Nicholas % (Auto) 4.7 % 07/10/21 16:07 Eos % (Auto) 1.1 % 07/10/21 16:07 Baso % (Auto) 0.6 % 07/10/21 16:07 Neut # (Auto) 5.05 10^3/uL (1.8-7.7) 07/10/21 16:07 Lymph # (Auto) 1.4 10^3/uL (0.8-4.8) 07/10/21 16:07 Nicholas # (Auto) 0.3 10^3/uL (0.2-0.9) 07/10/21 16:07 Eos # (Auto) 0.1 10^3/uL (0.0-0.8) 07/10/21 16:07 Baso # (Auto) 0.0 10^3/uL (0.0-0.1) 07/10/21 16:07 Nucleated RBC % (auto) 0 % 07/10/21 16:07 Nucleated RBCs # 0.0 /100WBC 07/10/21 16:07 Sodium 135 mmol/L (136-145) L 07/10/21 16:07 Potassium 3.4 mmol/L (3.5-5.1) L 07/10/21 16:07 Chloride 97 mmol/L (98-107) L 07/10/21 16:07 Carbon Dioxide 26 mmol/L (22-29) 07/10/21 16:07 Anion Gap 15.4 (5-19) 07/10/21 16:07 BUN 9 mg/dL (6-20) 07/10/21 16:07 Creatinine 0.6 mg/dL (0.5-0.9) 07/10/21 16:07 GFR Calculation 104.6 mL/min (90-130) 07/10/21 16:07 Glucose 91 mg/dL (65-115) 07/10/21 16:07 Calculated Osmolality 278 mOsm/kg (285-295) L 07/10/21 16:07 Calcium 9.3 mg/dL (8.5-10.5) 07/10/21 16:07 Total Bilirubin 0.4 mg/dL (0.15-1.2) 07/10/21 16:07 AST 25 U/L (0-32) 07/10/21 16:07 ALT 32 U/L (0-33) 07/10/21 16:07 Alkaline Phosphatase 123 IU/L (35-105) H 07/10/21 16:07 Total Protein 7.6 g/dL (6.6-8.7) 07/10/21 16:07 Albumin 2.9 g/dL (3.5-5.2) L 07/10/21 16:07 Globulin 4.7 g/dL (1.3-4.6) H 07/10/21 16:07 Procalcitonin 0.14 ng/mL (0-0.5) 07/10/21 16:07 EKG Data EKG 1: I personally reviewed and interpreted this EKG as follows: EKG interpretation time: 20:12 Interpretation: Contemporaneous EKG interpretation reveals a ventricular rate of 85 bpm. In sinus rhythm. She has evidence of possible left atrial enlargement and precordial lead II. She does have normal ME interval QTc interval as well as QRS duration. No acute ST-T wave changes noted. Normal axis. Computer generated interpretation: Chest X-Ray 07/10/21 15:48 IMPRESSION: Right mid lung subsegmental airspace opacification, decreased compared to prior CT scan may reflect a resolving pneumonia, continued follow-up to ensure resolution advised. Discharge Plan Discharge Patient Disposition: Home Clinical Impression: Pneumonia, Chest wall pain Condition: Stable Prescriptions: New prednisone 20 mg tablet 20 mg PO BID 5 Days Qty: 10 0RF No Action Orencia 125 mg/mL syringe 125 mg SUBCUT .qweek Qty: 4 3RF Eliquis 5 mg tablet 5 mg PO BID@0800,2000 0RF buspirone 15 mg tablet 15 mg PO BID Qty: 60 5RF paroxetine HCl [Paxil] 20 mg tablet 20 mg PO DAILY Qty: 30 5RF quetiapine 300 mg tablet 300 mg PO BEDTIME Qty: 30 5RF Rx Instructions: Take with 200mg dose for total dose of 500mg. quetiapine 200 mg tablet 200 mg PO DAILY Qty: 30 5RF Rx Instructions: Take with 300mg dose for total daily dose of 500mg. ropinirole 4 mg tablet 4 mg PO BEDTIME Qty: 30 5RF Rx Instructions: take 2 hours before bed methotrexate sodium 25 mg/mL solution 25 mg SUBCUT Q7D 0RF Rx Instructions: on fridays albuterol sulfate 90 mcg/actuation HFA aerosol inhaler 1 inh inhalation QID PRN (Reason: shortness of breath or wheezing) Qty: 8.5 3RF Anoro Ellipta 62.5-25 mcg/actuation blister with device See Rx Instructions .ROUTE .COMPLEX Qty: 60 3RF Dose Instruction: INHALE 1 PUFF BY MOUTH EVERY 24 HOURS Rx Instructions: INHALE 1 PUFF BY MOUTH EVERY 24 HOURS (DME) insulin syringe-needle U-100 [TRUEplus Insulin] 1 mL 30 gauge x 5/16 syringe See Rx Instructions .ROUTE .MEDSUPPLY Qty: 100 2RF Rx Instructions: As directed diclofenac sodium 1 % gel 2 g topical QID Qty: 100 2RF Rx Instructions: apply to single elbow, wrist or hand; for hand includes palm/fingers/back of hand pantoprazole [Protonix] 40 mg Tablet,Delayed Release (Dr/Ec) 40 mg PO BID@0800,2000 0RF nitroglycerin 0.4 mg Tablet, Sublingual 0.4 mg SUBLINGUAL Q5M PRN (Reason: Chest Pain) 0RF pregabalin [Lyrica] 100 mg Capsule 100 mg PO TID@08,12,20 0RF hydrocodone-acetaminophen 5-325 mg tablet 1 tab PO Q6H PRN (Reason: pain) Qty: 14 0RF doxycycline hyclate 100 mg tablet 100 mg PO BID 10 Days Qty: 20 0RF Discharge Orders: Discharge ED (Routine); Ordered 07/10/21 Ordered By: Yony Hernandez Referrals: Ayan Jay MD [Primary Care Provider] - Discharge Diet: Usual diet Discharge Activity: Resume usual activity Patient Instructions: Opioid Safety Activity Restrictions/Additional Instructions: Continue the doxycycline previously prescribed until that medication is completely gone. Take the prednisone for the next 5 days. You may continue to use acetaminophen to help with any additional pain. If you develop worsening pain, fevers, or other concerns that you are not improving return to this or the nearest emergency department. Coding Level of Care Code ED Structural Steel Worker for Vicente Tobin Exam Comprehensive
--- NOTE | 2021-07-10 19:49 | ECG_ITS ---
[facility] Test Date: 2021-07-10 Pat Name: Maura Hermosillo Department: Room: Gender: Female Reheater: : 1970 Requested By: Yony Hernandez Order Number: [id number] Joshua MD: Tamar Lane M.D. Measurements Intervals [place] Rate: 85 P: 70 SC: 166 QRS: 52 QRSD: 98 T: 60 QT: 391 QTc: 466 Interpretive Statements SINUS RHYTHM POSSIBLE LEFT ATRIAL ENLARGEMENT [-0.1mV P-WAVE IN V1/V2] POSSIBLE RIGHT VENTRICULAR CONDUCTION DELAY [RSR (QR) IN V1/V2] Compared to ECG 07/07/2021 19:50:06 T-wave abnormality no longer present Electronically Signed On 07-11-2021 0:23:[address] M.D. [id number]
[2021-07-10] MEDS: ketorolac 30 mg/mL INJ 15 MG IVP (20:19)
[2021-07-10 20:26] VITALS: BP 125/66; PULSE 77; RESP 16; TEMP 37.1; O2SAT 91
[2021-07-10 22:06] LABS: Troponin T (5th) Once 6 ng/L (0-10)
[2021-07-10 22:08] VITALS: BP 101/57; PULSE 79; RESP 17; TEMP 37.2; O2SAT 98
== END 2021-07-10 22:09 | disposition home or self-care (01) ==
PROVIDERS: Physician Assistant; Emergency Provider Emergency Medicine; PCP Family Medicine
DX: J18.9 Pneumonia, unspecified organism (principal); R07.89 Other chest pain; F17.200 Nicotine dependence, unspecified, uncomplicated; Z86.711 Personal history of pulmonary embolism; Z79.01 Long term (current) use of anticoagulants
CPT/HCPCS: 36415; 71045; 80053; 84145; 84484; 85025; 93005; 96374; 99284; J1885

== ENCOUNTER → 2021-08-27 13:58 | Outpatient (BNVA) | payer MEDICARE, MEDICAID, SELFPAY | PROVIDERS: PCP Family Medicine; Visit Provider Internal Medicine | DX: L40.9 Psoriasis, unspecified (principal); Z79.899 Other long term (current) drug therapy | CPT/HCPCS: 80053; 85025; 99214 ==

== ENCOUNTER 2021-11-26 13:05 | Emergency (ER) | payer MEDICARE, MEDICAID, SELFPAY ==
[2021-11-26 13:37] VITALS: BP 102/71; PULSE 97; RESP 16; TEMP 36.8; O2SAT 98; BMI 27.3
--- NOTE | 2021-11-26 13:53 | ED_ITS ---
HPI - General Adult General: Chief complaint: General Medical Stated complaint: throat/mouth pain Time Seen by Provider: 11/26/21 13:48 History of Present Illness: 51-year-old female comes in today with sores to the mouth. Patient has a history of psoriasis, substance use disorder, chronic pain due to osteoarthritis. Patient reports that she started having sores in her mouth over the last 2 to 3 days. Review of the history patient does take medication for her psoriasis including injections and also uses inhalers. Associated symptoms: Deny chest pain, dyspnea or rash Review of Systems General: Reports: 10 or more systems reviewed and unremarkable except in HPI and below Const: Denies: fever(s) ENMT: Reports: mouth pain and oral sores Card: Denies: chest pain Resp: Denies: dyspnea GI: Denies: abdominal pain Musc: Denies: neck pain Skin/Breast: Denies: rash PFSH ED PFSH: Medical History Alcohol dependence, in remission Chronic post-traumatic stress disorder CKD (chronic kidney disease) Hydronephrosis of right kidney Immunosuppression Lumbar radiculitis Lumbar spondylosis Obstructive sleep apnea Osteoarthritis of knees, bilateral Other stimulant dependence, in remission Peripheral neuropathy Psoriasis Psoriatic arthritis Psychiatric care Psychiatric care Pulmonary embolism Rectal cancer Restless leg syndrome Surgical History Colostomy in place H/O tubal ligation H/O: hysterectomy History of resection of rectum Family History Other Cancer Social History Smoking and tobacco status: current every day smoker Quit status (tobacco): has quit using tobacco Year quit tobacco: 2020 Former quit date comment: Hx of 1PPD x 46 Years Smoking risk assessment/counseling performed?: No Alcohol intake: current Alcohol intake frequency: holidays/special occasions only Counseling given: No Counseling given: No Lives independently: Yes Household members: none Marital status: Legally Current occupational status: disabled History of recent travel: No Current gender identity: Female Physical Exam Const: COMMON NORMALS: alert HENMT: HEAD & SCALP: normal to inspection MOUTH: moist mucous membranes abnormal (Patchy white areas of the buccal cavity and pharynx) Details: cracked Neck/C-Spine: COMMON NORMALS: full ROM Resp: COMMON NORMALS: normal respiratory effort and clear to auscultation bilaterally AUSCULTATION: clear to auscultation bilaterally Cardio: COMMON NORMALS: regular rate and regular rhythm RATE: regular rate RHYTHM: regular rhythm GI: COMMON NORMALS: non-tender Extremity: COMMON NORMALS: normal to inspection Neuro: SENSORIUM/ORIENTATION: Yes alert Skin: COMMON NORMALS: turgor normal GENERAL SKIN EXAM: turgor normal Course Vital Signs: Vital signs: Vital Signs Temperature 98.2 F 11/26/21 13:37 Pulse Rate 97 11/26/21 13:37 Respiratory Rate 16 11/26/21 13:37 Blood Pressure 102/71 11/26/21 13:37 Pulse Oximetry 98 11/26/21 13:37 Oxygen Delivery Me thod 11/26/21 13:37 MDM - General Adult Medical Decision Making Patient comes in today with mouth soreness. On exam patient has patchy areas of white exudate to the buccal mucosa, upper palate, posterior thumb, and pharynx. Differential diagnosis includes aphthous stomatitis, candidiasis, adverse drug reaction. Exam points to candidiasis. We will treat with nystatin and viscous lidocaine. Encourage patient to drink plenty of fluids and avoid spicy and acidic foods. Discharge Plan Discharge Patient Disposition: Home Clinical Impression: Candidiasis of mouth Condition: Stable Prescriptions: New nystatin 100,000 unit/mL suspension 4 ml PO 5XD 7 Days Qty: 140 0RF Rx Instructions: swish and spit Lidocaine Viscous 2 % solution 5 ml mucous membrane Q3H PRN (Reason: pain) Qty: 100 0RF No Action Eliquis 5 mg tablet 5 mg PO BID@0800,2000 buspirone 15 mg tablet 15 mg PO BID Qty: 60 5RF paroxetine HCl [Paxil] 20 mg tablet 20 mg PO DAILY Qty: 30 5RF quetiapine 300 mg tablet 300 mg PO BEDTIME Qty: 30 5RF Rx Instructions: Take with 200mg dose for total dose of 500mg. quetiapine 200 mg tablet 200 mg PO DAILY Qty: 30 5RF Rx Instructions: Take with 300mg dose for total daily dose of 500mg. ropinirole 4 mg tablet 4 mg PO BEDTIME Qty: 30 5RF Rx Instructions: take 2 hours before bed hydrocodone-acetaminophen 5-325 mg tablet 1 tab PO Q4H PRN (Reason: pain) 7 Days Qty: 28 0RF valacyclovir 500 mg tablet 500 mg PO BID 5 Days Qty: 10 0RF ibuprofen 600 mg tablet 600 mg PO Q8H PRN (Reason: pain) Qty: 30 0RF methotrexate sodium 25 mg/mL solution 25 mg SUBCUT Q7D Qty: 10 2RF Rx Instructions: on fridays folic acid 1 mg tablet 1 mg PO DAILY Qty: 90 2RF Orencia 125 mg/mL syringe 125 mg SUBCUT .qweek Qty: 4 3RF prednisone 5 mg tablet See Rx Instructions PO DAILY Qty: 60 0RF Rx Instructions: 20mg po qday x 5 days, then 15mg po qday x 5 days, then 10mg po qday x 5 days, then 5mg po qday PO daily; hydroxyzine HCl 25 mg tablet 25 mg PO TID PRN (Reason: itching) Qty: 60 0RF albuterol sulfate 90 mcg/actuation HFA aerosol inhaler 1 inh inhalation QID PRN (Reason: shortness of breath or wheezing) Qty: 8.5 3RF Anoro Ellipta 62.5-25 mcg/actuation blister with device See Rx Instructions .ROUTE .COMPLEX Qty: 60 3RF Dose Instruction: INHALE 1 PUFF BY MOUTH EVERY 24 HOURS Rx Instructions: INHALE 1 PUFF BY MOUTH EVERY 24 HOURS diclofenac sodium 1 % gel 2 g topical QID Qty: 100 2RF Rx Instructions: apply to single elbow, wrist or hand; for hand includes palm/fingers/back of hand (DME) insulin syringe-needle U-100 [TRUEplus Insulin] 1 mL 30 gauge x 5/16 syringe See Rx Instructions .ROUTE .MEDSUPPLY Qty: 100 2RF Rx Instructions: As directed pantoprazole [Protonix] 40 mg Tablet,Delayed Release (Dr/Ec) 40 mg PO BID@0800,2000 nitroglycerin 0.4 mg Tablet, Sublingual 0.4 mg SUBLINGUAL Q5M PRN (Reason: Chest Pain) pregabalin [Lyrica] 100 mg Capsule 100 mg PO TID@08,12,20 hydrocodone-acetaminophen 5-325 mg tablet 1 tab PO Q6H PRN (Reason: pain) Qty: 14 0RF Discharge Orders: Discharge ED (Routine); Ordered 11/26/21 Ordered By: Bridger Shaver Referrals: Ayan Jay MD [Primary Care Provider] - Discharge Diet: Advance as tolerated Patient Instructions: Oral Candidiasis (ED) Activity Restrictions/Additional Instructions: Use medication as directed. It is important to use nystatin swish and cover the whole entire part of your mouth before swallowing. Use lidocaine every 3 hours as needed for discomfort of the mouth. Make sure you rinse your mouth thoroughly after the use of inhalers. Drink plenty of water. For the next 2 to 3 days eat a soft diet avoiding spicy foods, acidic foods, or crunchy foods. Follow-up with primary care. Return to ER for new concerns. Coding Level of Care Code ED Mixing Tank Operator for Vicente Tobin
[2021-11-26] MEDS: lidocaine 2% viscous 15 mL UDC MUCOUS MEM (14:06)
[2021-11-26] MEDS: ketorolac 30 mg/mL INJ IM (14:06)
[2021-11-26] MEDS: nystatin 100,000 unit/mL UDC 5 mL 400000 UNIT PO (14:30)
== END 2021-11-26 14:34 | disposition home or self-care (01) ==
PROVIDERS: Emergency Provider Nurse Practitioner Family; PCP Family Medicine
DX: B37.0 Candidal stomatitis (principal); Z79.01 Long term (current) use of anticoagulants; Z79.4 Long term (current) use of insulin; F17.210 Nicotine dependence, cigarettes, uncomplicated; Z85.048 Personal history of other malignant neoplasm of rectum, rectosigmoid junction, and anus
CPT/HCPCS: 96372; 99284; J1885

== ENCOUNTER 2022-05-11 12:10 | Outpatient (CLI) | payer MEDICARE, MEDICAID, SELFPAY ==
--- NOTE | 2022-05-11 12:31 | CT_ITS ---
WS: [id number] LDCT LUNG CANCER SCREENING TECHNIQUE: Noncontrast CT of the chest with coronal and sagittal reformatted images. CLINICAL INFORMATION: NICOTINE DEPENDENCE, CIGARETTES COMPARISON: CT chest July 07, 2021 DLP: 78.91 mGy.cm DIvol: Mean CTDIvol: 1.60 (mGy) All CT scans at [facility] use at least one of these dose optimization techniques: automat ed exposure control; mA and/or kV adjustment per patient size (includes targeted exams where dose is matched to clinical indication); or iterative reconstruction. FINDINGS: Previously described RIGHT middle lobe pneumonia has resolved. Improved aeration of the RIGHT middle lobe today. Subsegmental atelectasis RIGHT lower lobe. Normal caliber thoracic aorta. Aortic calcific ation. No mediastinal or hilar lymphadenopathy. No axillary lymphadenopathy. Adrenal glands are normal. Normal GE junction. CT/CT lung screening [id number] IMPRESSION: LUNG-RADS: 1-Negative FOLLOW UP: 12 Month: Continue annual screening with LDCT
== END 2022-05-11 12:11 | disposition home or self-care (01) ==
LOC: RAD 12:13
PROVIDERS: PCP Family Medicine; Visit Provider Family Medicine
DX: Z12.2 Encounter for screening for malignant neoplasm of respiratory organs (principal); F17.210 Nicotine dependence, cigarettes, uncomplicated
CPT/HCPCS: 71271

== ENCOUNTER 2022-05-26 15:38 | Outpatient (CLI) | payer MEDICARE, MEDICAID, SELFPAY ==
--- NOTE | 2022-05-26 16:17 | XRR_ITS ---
PROCEDURE INFORMATION: Exam: XR Right Hand Exam date and time: 05/26/2022 4:18 PM Age: 52 years old Clinical indication: Pain; Hand; Right; Additional info: Right cmc pain TECHNIQUE: Imaging protocol: Radiologic exam of the right hand. Views: 1 or 2 views. COMPARISON: No relevant prior studies available. FINDINGS: Bones/joints: Mild degenerative changes 1st carpometacarpal joint. Remaining joint surfaces are preserved. Alignment is maintained. No fracture or underlying osseous lesion. Soft tissues: Unremarkable. XR/XR hand RT 2V [id number] IMPRESSION: Mild degenerative changes 1st CMC joint otherwise negative study.
--- NOTE | 2022-05-26 16:17 | XRR_ITS ---
PROCEDURE INFORMATION: Exam: XR Right Wrist Exam date and time: 05/26/2022 4:18 PM Age: 52 years old Clinical indication: Wrist; Right; Patient HX: RT hand and lower arm pain, no known trauma; Additional info: Right wrist pain TECHNIQUE: Imaging protocol: Radiologic exam of the right wrist. Views: 1 or 2 views. COMPARISON: No relevant prior studies available. FINDINGS: Bones/joints: There are mild degenerative changes 1st CMC joint with mild joint space narrowing and subchondral sclerosis. Remaining joint surfaces are preserved. There are a few scattered small carpal bone cysts along the proximal distal carpal role often either degenerative or developmental in nature. No fracture or malalignment. Soft tissues: Unremarkable. XR/XR wrist RT 2V [id number] IMPRESSION: Mild degenerative changes otherwise unremarkable exam.
--- NOTE | 2022-05-26 16:17 | XRR_ITS ---
PROCEDURE INFORMATION: Exam: XR Right Forearm Exam date and time: 05/26/2022 4:18 PM Age: 52 years old Clinical indication: Pain; Lower or forearm; Right; Patient HX: HX of colon cancer; Additional info: Right forearm pain, no known injury TECHNIQUE: Imaging protocol: Radiologic exam of the right forearm. Views: 2 views. COMPARISON: No relevant prior studies available. FINDINGS: Bones/joints: Normal. No fracture, deformity or underlying osseous lesion detected. Soft tissues: Normal. XR/XR forearm RT 2V [id number] IMPRESSION: Normal right forearm.
== END 2022-05-26 15:39 | disposition home or self-care (01) ==
LOC: RAD 15:44
PROVIDERS: PCP Family Medicine; Visit Provider Family Medicine
DX: M25.531 Pain in right wrist (principal)
CPT/HCPCS: 73090; 73100; 73120

== ENCOUNTER → 2022-06-04 07:48 | Outpatient (BNVA) | payer MEDICARE, MEDICAID, SELFPAY | PROVIDERS: PCP Family Medicine; Visit Provider Orthopaedic Surgery | DX: M48.062 Spinal stenosis, lumbar region with neurogenic claudication (principal); M47.816 Spondylosis without myelopathy or radiculopathy, lumbar region | CPT/HCPCS: 72110; 99214 ==

== ENCOUNTER → 2022-06-09 11:02 | Outpatient (BNVA) | payer MEDICARE, MEDICAID, SELFPAY | PROVIDERS: PCP Family Medicine; Visit Provider Internal Medicine | DX: L40.9 Psoriasis, unspecified (principal); Z51.81 Encounter for therapeutic drug level monitoring; Z79.899 Other long term (current) drug therapy | CPT/HCPCS: 80053; 85025; 85651; 86140; 99213 ==

== ENCOUNTER → 2022-06-12 08:28 | Outpatient (BNVA) | payer MEDICARE, MEDICAID, SELFPAY | PROVIDERS: PCP Family Medicine; Visit Provider Internal Medicine | DX: M25.50 Pain in unspecified joint (principal); L40.9 Psoriasis, unspecified | CPT/HCPCS: 20600; 99213; J1030 ==

== ENCOUNTER 2022-06-19 18:37 | Emergency (ER) | payer MEDICARE, MEDICAID, SELFPAY ==
[2022-06-19 18:38] VITALS: BP 114/76; PULSE 82; RESP 14; TEMP 36.5; O2SAT 95
--- NOTE | 2022-06-19 20:05 | XRR_ITS ---
PROCEDURE INFORMATION: Exam: XR Right Hand Exam date and time: 06/19/2022 8:19 PM Age: 52 years old Clinical indication: Pain; Hand; Right; Additional info: Injury TECHNIQUE: Imaging protocol: Radiologic exam of the right hand. Views: 3 or more views. COMPARISON: CR XR hand RT 2V [id number] 05/26/2022 4:18 PM FINDINGS: Bones/joints: No radiographic evidence of acute fracture or dislocation. Alignment anatomic. Mild degenerative changes. Soft tissues: Grossly unremarkable. XR/XR hand RT min 3V* [id number] IMPRESSION: No acute radiographic findings.
--- NOTE | 2022-06-19 20:52 | W.ED.EXTPRO ---
HPI - Extremity Problem General: Chief complaint: Extremity Injury, Upper Stated complaint: Right hand injury Time Seen by Provider: 06/19/22 19:27 Source: patient Mode of arrival: ambulatory Limitations: no limitations History of Present Illness: Patient presents to the emergency department today for evaluation treatment of right lateral wrist pain. Patient reports that today she was attempting to spanish moss picker her cat. She states when she was scooting it across the floor the cat jumped up which startled her causing her to throw her arms up into the ear. She states that when she did, she believes she may have overstretched her wrist and has been having lateral wrist pain ever since. She exhibits significant pain and discomfort with any movement of the wrist and thumb. Incidentally, patient does see her light truck driver who gives her injections in this area with her most recent injection on 06/12. She had no issues with pain after the injection until today's injury. Review of Systems General: Reports: 10 or more systems reviewed and unremarkable except in HPI and below PFSH ED PFSH: Medical History Chronic post-traumatic stress disorder CKD (chronic kidney disease) Hydronephrosis of right kidney Immunosuppression Lumbar radiculitis Lumbar spondylosis Obstructive sleep apnea Osteoarthritis of knees, bilateral Peripheral neuropathy Psoriasis Psoriatic arthritis Psychiatric care Psychiatric care Pulmonary embolism Rectal cancer Cancer free for 14 years. Restless leg syndrome Surgical History Colostomy in place H/O tubal ligation H/O: hysterectomy Due to fibroids. History of resection of rectum Family History Other Cancer Social History Smoking and tobacco status: current every day smoker Quit status (tobacco): has quit using tobacco Year quit tobacco: 2020 Former quit date comment: Hx of 1PPD x 46 Years Smoking risk assessment/counseling performed?: No Alcohol intake: current Alcohol intake frequency: holidays/special occasions only Counseling given: No Substance/Drug Use: never Counseling given: No Lives independently: Yes Household members: none Marital status: Legally Current occupational status: disabled Do you think of yourself as: Straight/Heterosexual Current gender identity: Female Physical Exam Const: COMMON NORMALS: no acute distress, patient oriented x3 and alert HENMT: COMMON NORMALS: normocephalic, atraumatic and hearing grossly normal bilaterally HEAD & SCALP: normocephalic and atraumatic Eye: COMMON NORMALS: Equal, round and reactive pupils present, EOMs intact bilaterally and conjunctivae normal CONJUNCTIVA: Yes conjunctivae normal PUPIL: Yes Equal, round and reactive pupils present Neck/C-Spine: COMMON NORMALS: full ROM and no JVD Lymph: LYMPHATIC: no lymphadenopathy noted Resp: COMMON NORMALS: normal respiratory effort, No retractions and No use of accessory muscles Cardio: COMMON NORMALS: no JVD and regular rate RATE: regular rate Extremity: NARRATIVE EXTREMITY EXAM: Patient is nontender to palpation in her muscles of the forearm. Nontender at the elbow. Patient nontender along the medial portion of the wrist but profusely tender to any palpation of the lateral side of the wrist and, patient is unable to perform Alis test at all due to her discomfort with any mobility of stretching the lateral side of the wrist or, moving her thumb. Patient's thumb with good cap refill, pink tip, and warmth to touch. No signs of acute swelling or erythema at the injection site. Neuro: COMMON NORMALS: patient oriented x3 SENSORIUM/ORIENTATION: Yes alert Psych: COMMON NORMALS: mental status grossly normal, Normal thought process present, cooperative and normal affect THOUGHT PROCESS: Normal thought process present Skin: COMMON NORMALS: no rashes or lesions noted and turgor normal GENERAL SKIN EXAM: no rashes or lesions noted and turgor normal Course Vital Signs: Vital signs: Vital Signs Temperature 97.7 F 06/19/22 18:38 Pulse Rate 82 06/19/22 18:38 Respiratory Rate 14 06/19/22 18:38 Blood Pressure 114/76 06/19/22 18:38 Pulse Oximetry 95 06/19/22 18:38 Oxygen Delivery Me thod Room Air 06/19/22 18:38 MDM - Extremity (Nontraumatic) Medical Decision Making Patient presents today for sudden and acute tenderness along the lateral side of her wrist. It is somewhat traumatic though she did not impacted on anything, may have hyper extended it. Patient is failing her de Quervain tests and would expect she has injured or overstretched her de Quervain's tendon. Discussed this with the patient immobilization of this area for comfort. Also recommended some anti-inflammatory medications but, patient is currently anticoagulated and will have to avoid oral NSAID. I have prescribed topical Voltaren gel and a short course of some steroids. I also recommend a follow-up appointment with orthopedics/hands to continue evaluation of this injury to assure she returns back to baseline. Differential Diagnosis Likely cellulitis (Injection site infection, joint infection, tendinitis, arthritis) Lab Data Radiology Impressions Hand X-Ray 06/19/22 20:05 IMPRESSION: No acute radiographic findings. Discharge Plan Discharge Patient Disposition: Home Clinical Impression: De Quervain's tenosynovitis Condition: Stable Prescriptions: New Voltaren Arthritis Pain 1 % gel 2 g topical QID Qty: 100 0RF Rx Instructions: apply to single elbow, wrist or hand; for hand includes palm/fingers/back of hand prednisone 20 mg tablet 20 mg PO DAILY 5 Days Qty: 5 0RF No Action Eliquis 5 mg tablet 5 mg PO BID@0800,1999 ibuprofen 600 mg tablet 600 mg PO Q8H PRN (Reason: pain) Qty: 30 0RF gabapentin 600 mg tablet 600 mg PO DAILY Qty: 30 5RF ropinirole 4 mg tablet 4 mg PO BEDTIME Qty: 30 5RF Rx Instructions: take 2 hours before bed quetiapine 200 mg tablet 200 mg PO DAILY Qty: 30 5RF paroxetine HCl [Paxil] 30 mg tablet 30 mg PO DAILY Qty: 30 5RF buspirone 15 mg tablet 15 mg PO BID Qty: 60 5RF methotrexate sodium 25 mg/mL solution 25 mg SUBCUT Q7D Qty: 10 2RF Rx Instructions: on fridays folic acid 1 mg tablet 1 mg PO DAILY Qty: 90 2RF Orencia 125 mg/mL syringe 125 mg SUBCUT .qweek Qty: 4 3RF diclofenac sodium 1 % gel 2 g topical QID Qty: 100 2RF Rx Instructions: apply to single elbow, wrist or hand; for hand includes palm/fingers/back of hand pantoprazole [Protonix] 40 mg tablet,delayed release (DR/EC) 40 mg PO BID@0800,2000 Qty: 60 1RF prednisone 20 mg tablet 20 mg PO DAILY Qty: 10 0RF Rx Instructions: Take in the AM with food albuterol sulfate 90 mcg/actuation HFA aerosol inhaler 1 inh inhalation QID PRN (Reason: shortness of breath or wheezing) Qty: 8.5 0RF Anoro Ellipta 62.5-25 mcg/actuation blister with device See Rx Instructions .ROUTE .COMPLEX Qty: 60 0RF Dose Instruction: INHALE 1 PUFF BY MOUTH EVERY 24 HOURS Rx Instructions: INHALE 1 PUFF BY MOUTH EVERY 24 HOURS (DME) insulin syringe-needle U-100 [TRUEplus Insulin] 1 mL 30 gauge x 5/16 syringe See Rx Instructions .ROUTE .MEDSUPPLY Qty: 100 2RF Rx Instructions: As directed nitroglycerin 0.4 mg Tablet, Sublingual 0.4 mg SUBLINGUAL Q5M PRN (Reason: Chest Pain) Lidocaine Viscous 2 % solution 5 ml mucous membrane Q3H PRN (Reason: pain) Qty: 100 0RF Discharge Orders: Discharge ED (Routine); Ordered 06/19/22 Ordered By: Alisha Roque Referrals: Svitlana Bustamante DO [Primary Care Provider] - Discharge Diet: Usual diet Discharge Activity: Limit activity as instructed Patient Instructions: De Quervain Disease (ED) Activity Restrictions/Additional Instructions: X-ray today shows no signs of any air or fluid in the joint where you received your injection. I do not think we have to worry about concerns for infection or involvement from your joint injection. However, given the mechanism of injury and the location of your pain I do think you have overstretched your de Quervain's tendon. As we discussed, this is the connective tissue from your thumb up in your forearm which runs along the side of your wrist. This can become inflamed and extremely tender and sore with movement. We are putting you into a special brace which I would like you to wear at all times-except for bathing, for the next few days. I am also giving you some medication to both apply and take orally to help with inflammation. You can apply ice to the area of tenderness for 15 to 20 minutes, multiple times throughout the day to help with discomfort as well. We have requested a follow-up appointment with orthopedics to make sure your symptoms are improving. Coding Level of Care Code ED Marketing Database Consultant for Vicente Tobin
[2022-06-19] MEDS: predniSONE 20 mg Tablet 40 MG PO (21:05)
--- NOTE | 2022-06-22 07:48 | PC.OT ---
PATIENT D/C BEFORE EVALUATION COULD BE COMPLETED.
--- NOTE | 2022-06-22 09:35 | DCPLANNER ---
Addendum entered by Mariam Jaime 07/14/22 14:45: Patient had an appointment scheduled with ortho - patient did attend appointment. Addendum entered by Mariam Jaime 06/26/22 10:06: Patient has a follow up appointment scheduled for Thursday, July 07, 2022 at 9:[address] Jasmine at ortho. Addendum entered by Mariam Jaime 06/22/22 14:57: regional property manager received the following message from the ortho clinic regarding follow up appointment: attempt made to contact patient - left vm and mailed letter to call our clinic to schedule w/ dr jasmine Original Note: regional property manager had message to schedule a follow up appointment for patient with ortho. regional property manager sent patients information to the front office staff at ortho. Patients information will be printed and reviewed. Clinic will call patient with appointment information.
== END 2022-06-19 21:21 | disposition home or self-care (01) ==
PROVIDERS: Emergency Provider Physician Assistant; PCP Family Medicine
DX: M65.4 Radial styloid tenosynovitis [de Quervain] (principal); Z79.01 Long term (current) use of anticoagulants; Z79.4 Long term (current) use of insulin; F17.210 Nicotine dependence, cigarettes, uncomplicated; N18.9 Chronic kidney disease, unspecified; Z85.048 Personal history of other malignant neoplasm of rectum, rectosigmoid junction, and anus
CPT/HCPCS: 73130; 99283; J7512

== ENCOUNTER → 2022-07-02 14:29 | Outpatient (BNVA) | payer MEDICARE, MEDICAID, SELFPAY | PROVIDERS: PCP Family Medicine; Visit Provider Physician Assistant | DX: M54.50 Low back pain, unspecified (principal); M48.062 Spinal stenosis, lumbar region with neurogenic claudication | CPT/HCPCS: 99213 ==

== ENCOUNTER → 2022-07-07 09:08 | Outpatient (BNVA) | payer MEDICARE, MEDICAID, SELFPAY | PROVIDERS: PCP Family Medicine; Visit Provider Orthopaedic Surgery | DX: M65.4 Radial styloid tenosynovitis [de Quervain] (principal) | CPT/HCPCS: 99203 ==

== ENCOUNTER 2022-07-10 09:15 | Outpatient (CLI) | payer MEDICARE, MEDICAID, SELFPAY ==
--- NOTE | 2022-07-10 11:00 | MR_ITS ---
WS: [id number] MRI LUMBAR SPINE NONCONTRAST HISTORY: pain, right-sided leg pain and back pain. COMPARISON: 04/02/2020 TECHNIQUE: Sagittal and axial multisequence imaging is submitted. Normal lumbar alignment with no compression fractures or marrow edema. Minimal disc desiccation and narrowing at L5-S1. Conus terminates normally at L1. L1-L2: Normal. L2-L3: Very mild annular disc bulging. L3-L4: Very mild annular disc bulging and ligamentum flavum hypertrophy. No stenosis. L4-L5: Diffuse annular disc bulging with mild ligamentum flavum and facet arthritis. Mild progression of disc bulging since the prior study. Shallow central protrusion. No nerve root encroachment or con tact. L5-S1: Asymmetric disc bulging has progressed since the prior study. Disc is asymmetric bulging to th e LEFT. There is mild encroachment into the LEFT subarticular recess. Moderate LEFT foraminal stenosi s. Stenosis has slightly progressed since the prior study. There is also a very small annular fissure in the RIGHT foramen. Paravertebral soft tissues are normal. MR/MR lumbar spine wo con* [id number] IMPRESSION: 1. Asymmetric disc bulging at L5-S1 encroaching into the LEFT subarticular rec ess and foramina. Moderate LEFT foraminal stenosis. Mild progression since the prior study. 2. Mild annular disc bulging and facet arthritis at L4-5. Mild progression of the disc bulging since 04/02/2020. No significant stenosis.
== END 2022-07-10 09:16 | disposition home or self-care (01) ==
LOC: RAD 09:19
PROVIDERS: PCP Family Medicine; Visit Provider Physician Assistant
DX: M48.062 Spinal stenosis, lumbar region with neurogenic claudication (principal); M79.604 Pain in right leg; M51.27 Other intervertebral disc displacement, lumbosacral region; M47.816 Spondylosis without myelopathy or radiculopathy, lumbar region
CPT/HCPCS: 72148; 99213

== ENCOUNTER 2022-07-16 06:42 | Day surgery (SDC) | payer MEDICARE, MEDICAID, SELFPAY ==
[2022-07-16] VITALS (12 sets, daily range): BP systolic 100–125; BP diastolic 59–78; PULSE 75–95; RESP 10–20; TEMP 36.1–37.2; O2SAT 90–99
--- NOTE | 2022-07-16 07:30 | P.ANESASSM_ITS ---
Pre-Anesthetic Assessment Height/Weight: Height 1.75 m Weight 82.554 kg Temp Pulse Resp BP Pulse Ox O2 Del Method 98.9 F 95 20 H 100/69 96 Room Air 07/16/22 07:02 07/16/22 07:02 07/16/22 07:02 07/16/22 07:02 07/16/22 07:02 07/16/22 07:05 Preop Diagnosis: De Quervain's tenosynovitis right wrist Operation Date: 07/16/22 08:15 Proposed Procedures p right de quervain's release/ 59576,M65.4(Right) - Dong Yang MD Familial anesthetic complications: None Was Beta Bernadette taken within 24 hours: N/A Was Clonidine taken within 24 hours: N/A Last intake: Intake Last Liquid Date 07/15/22 Last Liquid Time 18:00 Last Solid Date 07/15/22 Last Solid Time 19:30 Social Tobacco history of ETOH and methamphetamine use - denies any recent use Exam alert, oriented x 3, clear to auscultation bilaterally and regular rate & rhythm Airway Mallampati: Class II Dentition: other (very poor dentition) Pulmonary Chronic Obstructive Pulmonary Disease and Sleep Apnea hx PE Anesthetic Plan ASA status: 3 Anesthesia: MAC Risk of > 500 ml blood loss (7ml/kg in children): No Medications/Allergies Home Medications Medication Instructions Recorded Confirmed Last Taken Type apixaban 5 mg tablet (Eliquis) 5 mg PO BID@0800,199904/04/19 07/15/22 07/01/22 History diclofenac sodium 1 % topical gel 2 g topical QID #100 grams 06/23/21 07/15/22 07/15/22 Rx abatacept 125 mg/mL subcutaneous 125 mg SUBCUT .qweek #4 mL 08/27/21 07/15/22 07/01/22 Rx syringe (Orencia) folic acid 1 mg tablet 1 mg PO DAILY #90 tabs 08/27/21 07/15/22 07/15/22 Rx methotrexate sodium 25 mg/mL 25 mg SUBCUT Q7D #10 mL 08/27/21 07/15/22 07/10/22 Rx injection solution buspirone 15 mg tablet 15 mg PO BID #60 tabs 03/18/22 07/15/22 07/15/22 Rx gabapentin 600 mg tablet 600 mg PO DAILY #30 tabs 03/18/22 07/15/22 07/15/22 Rx paroxetine HCl 30 mg tablet (Paxil) 30 mg PO DAILY #30 tabs 03/18/22 07/15/22 07/15/22 Rx quetiapine 200 mg tablet 200 mg PO DAILY #30 tabs 03/18/22 07/15/22 07/14/22 Rx ropinirole 4 mg tablet 4 mg PO BEDTIME #30 tabs 03/18/22 07/15/22 07/14/22 Rx insulin syringe-needle U-100 1 mL #100 ea 06/15/22 07/14/22 Unknown Rx 30 gauge x 07/14 (TRUEplus Insulin) pantoprazole 40 mg tablet,delayed See Rx Instructions .Route 07/13/22 07/15/22 07/15/22 Rx release .COMPLEX #60 tabs albuterol sulfate 90 mcg/actuation 1 inh inhalation QID PRN shortness 07/14/22 07/15/22 07/15/22 Rx aerosol inhaler of breath or wheezing #8.5 grams umeclidinium 62.5 mcg-vilanterol See Rx Instructions .Route 07/14/22 07/15/22 07/15/22 Rx 25 mcg/actuation powdr for .COMPLEX #60 ea inhalation (Anoro Ellipta) Allergies Allergy/AdvReac Type Severity Reaction Status Date / Time coconut oil Allergy Severe anaphylaxis Verified 07/15/22 15:57 mushroom Allergy Severe trouble Verified 07/15/22 15:57 breathing duloxetine [From Cymbalta] Allergy Intermediate dizziness,v Verified 07/15/22 15:57 omiting atorvastatin AdvReac Intermediate does not Verified 07/15/22 15:57 want to take it [facility] Anesthesia Medical History Chronic post-traumatic stress disorder CKD (chronic kidney disease) Hydronephrosis of right kidney Immunosuppression Lumbar radiculitis Lumbar spondylosis Obstructive sleep apnea Osteoarthritis of knees, bilateral Peripheral neuropathy Psoriasis Psoriatic arthritis Psychiatric care Psychiatric care Pulmonary embolism Rectal cancer Cancer free for 14 years. Restless leg syndrome Surgical History Colostomy in place H/O tubal ligation H/O: hysterectomy Due to fibroids. History of resection of rectum Family History Other Cancer Social History Smoking and tobacco status: current every day smoker Quit status (tobacco): has quit using tobacco Year quit tobacco: 2020 Former quit date comment: Hx of 1PPD x 46 Years Smoking risk assessment/counseling performed?: No Alcohol intake: current Alcohol intake frequency: holidays/special occasions only Counseling given: No Substance/Drug Use: never Counseling given: No Lives independently: Yes Household members: none Marital status: Legally Current occupational status: disabled Do you think of yourself as: Straight/Heterosexual Current gender identity: Female Data Anesthesia Cardiac Studies: Echocardiogram Ultrasound 02/13/20
[2022-07-16] MEDS: sodium chloride 0.9% 1,000 ML 30 ML IV (07:38)
[2022-07-16] MEDS: fentaNYL 50 mcg/mL INJ 2mL IVP ×2 (07:47→09:53)
[2022-07-16 07:56] LABS: Anion Gap 17.6 (5-19); Blood Urea Nitrogen 13 mg/dL (6-20); Calcium 8.9 mg/dL (8.5-10.5); Carbon Dioxide 23 mmol/L (22-29); Chloride 101 mmol/L (98-107); Glomerular Filtration Rate 74.7 mL/min (90-130); Glucose 104 mg/dL (65-115); Osmolality Calculated 286 mOsm/kg (285-295); Potassium 3.6 mmol/L (3.5-5.1); Sodium 138 mmol/L (136-145)
--- NOTE | 2022-07-16 08:31 | W.PM.OPSUD ---
Surgery/Procedure H&P Update DATE OF PROCEDURE: July 16, 2022 DATE H&P PERFORMED: 07/07/22 H&P UPDATE INFORMATION: I have reviewed H&P completed within last 30 days PREOP DIAGNOSIS: De Quervain's tenosynovitis right wrist PLANNED PROCEDURE: Operation Date: 07/16/22 08:15 Proposed Procedures p right de quervain's release/ 29169,M65.4(Right) - Dong Yang MD
[2022-07-16] MEDS: ceFAZolin 2,000 MG in sodium chloride 0.9% (plus) 50 ML 100 MG IV (08:47)
--- NOTE | 2022-07-16 09:48 | PM.OP ---
Operative Report Date of procedure: July 16, 2022 Pre-op diagnosis: Preop Diagnosis De Quervain's tenosynovitis right wrist Post-op diagnosis: same Procedure done: Release first extensor compartment right wrist Pathology: none sent Surgeon: Dong Yang Anesthesia: General Estimated blood loss (mL): 2 Complications: None Findings: The patient had 2 branches of the extensor pollicis brevis in a separate compartment from the larger abductor pollicis longus at the first extensor compartment of the wrist. No masses or space-occupying lesions were identified. No visible tendon degeneration or tearing was identified. Condition: stable Brief History: 52-year-old female with progressive right wrist pain for the past 6 weeks. She failed conservative measures including injections and bracing and is here for first extensor compartment release Procedure: The patient was taken to the operating room and a Fady block was provided by anesthesia. They were prepped and draped in the usual fashion a timeout was performed. Her skin was tested to ensure adequacy of the block. A centimeter and half in the transverse incision was made radially over the tip of the radial styloid. Dissection was carried down bluntly through the deep tissues revealing the first extensor compartment of the wrist. A large well-developed abductor pollicis longus tendon were identified distally. Dissection was then accomplished along the extensor sheath proximally with scissors over a distance of approximately 10 mm until the tendons were freed of any constrictions. Tendons were retracted with a blunt retractor revealing a small second additional compartments containing 2 small extensor pollicis brevis tendon. This tendon was a similarly freed from its sheath with blunt scissors. The wound was irrigated with saline. Bulky compressive dressing was applied about the thumb using 4 x 4 fluffs, cast padding, and a 2 inch Thai wrap. The patient was taken to recovery room in stable condition.
[2022-07-16] MEDS: HYDROcodone-acetaminophen 5-325 mg Tablet 1 TAB PO (10:26)
--- NOTE | 2022-07-16 17:24 | ANE.PACU2 ---
Inpatient post-anesthesia follow up: Airway intact: Yes Vital signs: Temperature 97.2 F Pulse Rate 92 Respiratory Rate 20 Blood Pressure 108/72 Pulse Oximetry 95 Oxygen Delivery Me thod Room Air Oxygen Flow Rate 6 Fraction of Inspir ed Oxygen Hydration adequate: Yes Nausea and vomiting: No Pain level: 1 Mental status: Baseline
== END 2022-07-16 10:55 | disposition home or self-care (01) ==
PROVIDERS: Anesthesiology; PCP Family Medicine; Visit Provider Orthopaedic Surgery
PROC: (CPT 25000; principal; 2022-07-16 08:15)
DX: M65.4 Radial styloid tenosynovitis [de Quervain] (principal); J44.9 Chronic obstructive pulmonary disease, unspecified; G47.30 Sleep apnea, unspecified; Z79.01 Long term (current) use of anticoagulants; Z87.891 Personal history of nicotine dependence
CPT/HCPCS: 25000 ×2; 80048; J0690; J1100; J2250; J2370; J2405; J2704; J3010; J3490; J7030

== ENCOUNTER 2022-07-23 21:52 | Emergency (ER) | payer MEDICARE, MEDICAID, SELFPAY ==
[2022-07-23 21:56] VITALS: BP 126/76; PULSE 101; RESP 16; TEMP 36.4; O2SAT 99
--- NOTE | 2022-07-23 22:39 | ED_ITS ---
HPI - Wound/Laceration General: Chief Complaint: Wound/Laceration Stated Complaint: Surgery Incision Burning Time Seen by Provider: 07/23/22 21:59 Source: patient Mode of arrival: ambulatory Limitations: no limitations History of Present Illness: 52-year-old female who had a de Quervain's wean release 2 weeks ago states she been having pain over the site she is ran out of her hydrocodone states pain sharp in nature rates it a 6 out of 10 worse with palpation movement denies any fever denies any redness denies any drainage. Associated symptoms: Denies chills, fever(s), nausea or vomiting Review of Systems Const: Denies: fever(s), chills, body aches or change in appetite ENMT: Denies: throat pain or dental pain Card: Denies: chest pain Resp: Denies: dyspnea GI: Denies: abdominal pain, nausea, vomiting or diarrhea Musc: Reports: extremity pain; Denies: neck pain or back pain Neuro: Denies: headache(s) PFSH ED PFSH: Medical History Chronic post-traumatic stress disorder CKD (chronic kidney disease) Hydronephrosis of right kidney Immunosuppression Lumbar radiculitis Lumbar spondylosis Obstructive sleep apnea Osteoarthritis of knees, bilateral Peripheral neuropathy Psoriasis Psoriatic arthritis Psychiatric care Psychiatric care Pulmonary embolism Rectal cancer Cancer free for 14 years. Restless leg syndrome Surgical History Colostomy in place H/O tubal ligation H/O: hysterectomy Due to fibroids. History of resection of rectum Family History Other Cancer Social History Smoking and tobacco status: current every day smoker Quit status (tobacco): has quit using tobacco Year quit tobacco: 2020 Former quit date comment: Hx of 1PPD x 46 Years Smoking risk assessment/counseling performed?: No Alcohol intake: current Alcohol intake frequency: holidays/special occasions only Counseling given: No Substance/Drug Use: never Counseling given: No Lives independently: Yes Household members: none Marital status: Legally Current occupational status: disabled Do you think of yourself as: Straight/Heterosexual Current gender identity: Female Physical Exam Const: COMMON NORMALS: no acute distress, patient oriented x3 and healthy appearing HENMT: COMMON NORMALS: normocephalic and atraumatic HEAD & SCALP: normocephalic and atraumatic Eye: COMMON NORMALS: conjunctivae normal CONJUNCTIVA: Yes conjunctivae normal Neck/C-Spine: COMMON NORMALS: full ROM and supple Chest: COMMONS NORMALS: normal inspection of the chest Resp: COMMON NORMALS: normal respiratory effort Cardio: COMMON NORMALS: regular rate, regular rhythm and No murmurs present (Cardio) RATE: regular rate RHYTHM: regular rhythm GI: INSPECTION: Yes normal to inspection Extremity: NARRATIVE EXTREMITY EXAM: Sutures in place from her decor vein surgery on her wrist wound is clean dry and intact no erythema no drainage distal pulses sensation intact she does have some tenderness over the wound Neuro: COMMON NORMALS: patient oriented x3, moves all extremities and no focal motor deficits Psych: COMMON NORMALS: mental status grossly normal, Normal thought process present and cooperative THOUGHT PROCESS: Normal thought process present Skin: COMMON NORMALS: no rashes or lesions noted and no wounds GENERAL SKIN EXAM: no rashes or lesions noted Course Vital Signs: Vital signs: Vital Signs Temperature 97.6 F 07/23/22 21:56 Pulse Rate 101 H 07/23/22 21:56 Respiratory Rate 18 07/23/22 22:46 Blood Pressure 126/76 07/23/22 21:56 Pulse Oximetry 98 07/23/22 22:46 Oxygen Delivery Me thod Room Air 07/23/22 21:56 MDM - Wound/Laceration Medical Decision Making Patient presents here with right wrist pain is postop from her decor vein surgery her incisions well clean dry intact no signs of cellulitis distal pulses intact sensations intact her pain here is improved with morphine she is ran out of her hydrocodone and I told her I can give her 1 prescription for hydrocodone but she is to follow-up with her surgeon. Medical Records I reviewed the patient's medical records. Discharge Plan Discharge Patient Disposition: Home Clinical Impression: Post-op pain Condition: Stable Prescriptions: New hydrocodone-acetaminophen 5-325 mg tablet 1 tab PO Q6H PRN (Reason: pain) Qty: 14 0RF No Action Eliquis 5 mg tablet 5 mg PO BID@0800,2000 gabapentin 600 mg tablet 600 mg PO DAILY Qty: 30 5RF ropinirole 4 mg tablet 4 mg PO BEDTIME Qty: 30 5RF Rx Instructions: take 2 hours before bed quetiapine 200 mg tablet 200 mg PO DAILY Qty: 30 5RF paroxetine HCl [Paxil] 30 mg tablet 30 mg PO DAILY Qty: 30 5RF buspirone 15 mg tablet 15 mg PO BID Qty: 60 5RF albuterol sulfate 90 mcg/actuation HFA aerosol inhaler 1 inh inhalation QID PRN (Reason: shortness of breath or wheezing) Qty: 8.5 5RF Anoro Ellipta 62.5-25 mcg/actuation blister with device See Rx Instructions .ROUTE .COMPLEX Qty: 60 5RF Dose Instruction: INHALE 1 PUFF BY MOUTH EVERY 24 HOURS Rx Instructions: INHALE 1 PUFF BY MOUTH EVERY 24 HOURS methotrexate sodium 25 mg/mL solution 25 mg SUBCUT Q7D Qty: 10 2RF Rx Instructions: on fridays folic acid 1 mg tablet 1 mg PO DAILY Qty: 90 2RF Orencia 125 mg/mL syringe 125 mg SUBCUT .qweek Qty: 4 3RF diclofenac sodium 1 % gel 2 g topical QID Qty: 100 2RF Rx Instructions: apply to single elbow, wrist or hand; for hand includes palm/fingers/back of hand (DME) insulin syringe-needle U-100 [TRUEplus Insulin] 1 mL 30 gauge x 5/16 syringe See Rx Instructions .ROUTE .MEDSUPPLY Qty: 100 2RF Rx Instructions: As directed pantoprazole 40 mg tablet,delayed release (DR/EC) See Rx Instructions .ROUTE .COMPLEX Qty: 60 1RF Dose Instruction: TAKE ONE TABLET BY MOUTH TWICE DAILY * 8am and 8pm * Rx Instructions: TAKE ONE TABLET BY MOUTH TWICE DAILY * 8am and 8pm * hydrocodone-acetaminophen 5-325 mg tablet 1 tab PO Q4H Qty: 30 0RF Discharge Orders: Discharge ED (Routine); Ordered 07/23/22 Ordered By: Samuel Monteiro Referrals: Svitlana Bustamante DO [Primary Care Provider] - Dong Yang MD [Physician] - 1-3 days Discharge Diet: Advance as tolerated Discharge Activity: Resume usual activity Patient Instructions: Opioid Safety, Post Operative Pain Coding Level of Care Code ED Security Intelligence Analyst for Chg Mahad
[2022-07-23 22:46] VITALS: RESP 18; O2SAT 98
[2022-07-23] MEDS: morphine 4 mg/mL SDV 1 mL IM (22:46)
[2022-07-23] MEDS: ondansetron 2 mg/ML SDV 2 mL 4 MG IM (22:47)
== END 2022-07-23 23:22 | disposition home or self-care (01) ==
PROVIDERS: Emergency Provider Emergency Medicine; PCP Family Medicine
DX: G89.18 Other acute postprocedural pain (principal); Z79.01 Long term (current) use of anticoagulants; Z79.4 Long term (current) use of insulin; F17.210 Nicotine dependence, cigarettes, uncomplicated; N18.9 Chronic kidney disease, unspecified; Z85.048 Personal history of other malignant neoplasm of rectum, rectosigmoid junction, and anus
CPT/HCPCS: 96372; 99284; J2270; J2405

== ENCOUNTER → 2022-07-30 09:45 | Outpatient (BNVA) | payer MEDICARE, MEDICAID, SELFPAY | PROVIDERS: PCP Family Medicine; Visit Provider Nurse Practitioner Family | DX: Z98.890 Other specified postprocedural states (principal) | CPT/HCPCS: 99024 ==

== ENCOUNTER → 2022-08-06 10:15 | Outpatient (BNVA) | payer MEDICARE, MEDICAID, SELFPAY | PROVIDERS: PCP Family Medicine; Visit Provider Physician Assistant | DX: M54.17 Radiculopathy, lumbosacral region (principal) | CPT/HCPCS: 99213 ==

== ENCOUNTER 2022-08-07 15:06 | Emergency (ER) | payer MEDICARE, MEDICAID, SELFPAY ==
[2022-08-07 15:12] VITALS: BP 97/74; PULSE 97; RESP 18; TEMP 36.6; O2SAT 99; BMI 27.3
--- NOTE | 2022-08-07 15:34 | ED_ITS ---
HPI - Anxiety General: Chief Complaint: Anxiety Stated Complaint: MHE Time Seen by Provider: 08/07/22 15:20 History of Present Illness: Patient is a 52-year-old female comes to the ED with SI and anxiety. Patient says over the past week she has been having increased anxiety and stress. Patient says her daughter is called under increased stress because she is not letting her see her grandkids. Patient endorses having suicidal thoughts and says she would like to go to sleep and not wake up. Denies any plan. She has been having trouble sleeping at night. She endorses having some auditory and visual hallucinations when she is lying in bed at night and cannot fall asleep. Denies any current alcohol or drug abuse. Associated symptoms: Deny chest pain, chills, fever(s), headache(s), nausea, palpitations or vomiting Review of Systems Const: Denies: fever(s), chills or fatigue Eyes: Denies: change in vision or eye discomfort ENMT: Denies: throat pain, odynophagia, nasal discharge or nasal congestion Card: Denies: chest pain, palpitations, edema, swelling of feet/ankles, dyspnea on exertion or orthopnea Resp: Denies: dyspnea, productive cough or non-productive cough GI: Denies: abdominal pain, nausea, vomiting, diarrhea, constipation or hematochezia : Denies: flank pain, dysuria or hematuria Musc: Denies: neck pain, back pain or extremity swelling Skin/Breast: Denies: rash or new lesions Neuro: Denies: headache(s), numbness in extremities or weakness in extremities Psych: Reports: anxiety, sleeping less, visual hallucinations, auditory hallucinations and suicidal ideation; Denies: homicidal ideation [facility] ED PFSH: Medical History (Updated 08/07/22 @ 20:26 by GOOD Choudhury) Chronic post-traumatic stress disorder CKD (chronic kidney disease) DDD (degenerative disc disease), lumbar Hydronephrosis of right kidney Immunosuppression Lumbar radiculitis Lumbar spondylosis Obstructive sleep apnea Osteoarthritis of knees, bilateral Peripheral neuropathy Psoriasis Psoriatic arthritis Psychiatric care Psychiatric care Pulmonary embolism Rectal cancer Cancer free for 14 years. Restless leg syndrome Surgical History Colostomy in place H/O tubal ligation H/O: hysterectomy Due to fibroids. History of resection of rectum Family History Other Cancer Social History Smoking and tobacco status: current every day smoker Quit status (tobacco): has quit using tobacco Year quit tobacco: 2020 Former quit date comment: Hx of 1PPD x 46 Years Smoking risk assessment/counseling performed?: No Alcohol intake: current Alcohol intake frequency: holidays/special occasions only Counseling given: No Substance/Drug Use: never Counseling given: No Lives independently: Yes Household members: none Marital status: Legally Current occupational status: disabled Do you think of yourself as: Straight/Heterosexual Current gender identity: Female Physical Exam Const: COMMON NORMALS: patient oriented x3 HENMT: COMMON NORMALS: normocephalic HEAD & SCALP: normocephalic MOUTH: Normal oral and palatal mucosa present THROAT: posterior oropharynx normal and uvula midline Neck/C-Spine: COMMON NORMALS: supple GENERAL: Yes normal visual inspection Resp: COMMON NORMALS: normal respiratory effort, No retractions, No use of accessory muscles and clear to auscultation bilaterally AUSCULTATION: clear to auscultation bilaterally Cardio: COMMON NORMALS: regular rate, regular rhythm, S1 normal heart sound present, S2 normal heart sound present, No gallops present (Cardio), No clicks present (Cardio), No murmurs present (Cardio) and Peripheral pulses 2+ throughout RATE: regular rate RHYTHM: regular rhythm HEART SOUNDS: S1 normal heart sound present and S2 normal heart sound present PERIPHERAL PULSES: Peripheral pulses 2+ throughout GI: COMMON NORMALS: Normal to inspection, nondistended, normoactive bowel sounds present, Soft to palpation, non-tender and no masses PALPATION: Yes Soft to palpation : COMMON NORMALS: Yes no CVA tenderness BLADDER/KIDNEY EXAM: Yes no CVA tenderness Back/Pelvis: COMMON NORMALS: no CVA tenderness Extremity: COMMON NORMALS: normal to inspection Neuro: COMMON NORMALS: patient oriented x3 GAIT: Yes Normal gait present Psych: COMMON NORMALS: mental status grossly normal, Normal thought process present and speech normal APPEARANCE: Yes grossly normal ATTITUDE: Yes calm ACTIVITY/MOTOR BEHAVIOR: Yes appropriate eye contact SPEECH: Yes normal speech MOOD & AFFECT: Yes sad and Yes tearful THOUGHT PROCESS: Normal thought process present THOUGHT CONTENT: Yes Suicidality present Skin: GENERAL SKIN EXAM: dry skin Course ED course: I contacted Tobin who is a friend that she is currently living at his house. I spoke with him in regards to patient's mental health, to see how she has been doing for the past week. Tobin said that patient has not made any suicidal comments to him. He states that she had some ups and downs in her mood over the past couple weeks due to recent family issues. He does not have any concerns for her being suicidal at this time and he states that he can keep a close eye on patient if she does discharge home. Vital Signs: Vital signs: Vital Signs Temperature 98 F 08/07/22 15:12 Pulse Rate 82 08/07/22 17:14 Respiratory Rate 18 08/07/22 17:14 Blood Pressure 116/67 08/07/22 17:14 Pulse Oximetry 100 08/07/22 17:14 Oxygen Delivery Me thod Room Air 08/07/22 15:12 MDM - Anxiety Medical Decision Making Patient is a 52-year-old female comes to the ED with SI and anxiety. Patient made a comment that she would like to go to sleep and not wake up. Denies any current plan for suicide. I contacted Dr. Muller until about patient case and he said the stress unit is currently full and she will need to be transferred. I talked with patient about transferring and she was very emotional and upset and did not want to be transferred and states that she is not really suicidal and was just coming here because she has been very stressed and was hoping to get help before she gets any worse. She was adamant about not wanting to be transferred. I contacted Dr. Borden and told about patient case and he wanted me to contact people she is living with to get a feel for how she has been doing and then give him a call back and he will then do a televisit on patient. I contacted Tobin who is a friend that she is currently living at his house. I spoke with him in regards to patient's mental health, to see how she has been doing for the past week. Tobin said that patient has not made any suicidal comments to him. He states that she had some ups and downs in her mood over the past couple weeks due to recent family issues. He does not have any concerns for her being suicidal at this time and he states that he can keep a close eye on patient if she does discharge home. Dr. Borden performed a televisit on patient and he recommended patient is safe for discharge home. Patient diagnosed with stress at home and anxiety and was discharged. Told to follow-up with PCP in the next week for reevaluation. Return to ED precautions given. Patient understood and agreed with plan. Lab Data I reviewed the patient's lab results. 08/07/22 17:00 08/07/22 17:00 Laboratory Results WBC 7.6 10^3/uL (4.0-10.0) 08/07/22 17:00 RBC 4.10 10^6/uL (4.1-5.3) 08/07/22 17:00 Hgb 13.0 g/dL (11.5-15.3) 08/07/22 17:00 Hct 39.4 % (37.0-47.0) 08/07/22 17:00 MCV 96.1 fl (81-99) 08/07/22 17:00 MCH 31.7 pg (28.0-34.0) 08/07/22 17:00 MCHC 33.0 g/dL (30.0-36.0) 08/07/22 17:00 RDW 12.6 % (12.1-15.1) 08/07/22 17:00 Plt Count 191 10^3/cmm (130-400) 08/07/22 17:00 MPV 9.1 fL (7.4-10.4) 08/07/22 17:00 Neut % (Auto) 81.0 % 08/07/22 17:00 Lymph % (Auto) 12.2 % 08/07/22 17:00 [place] % (Auto) 4.8 % 08/07/22 17:00 Eos % (Auto) 1.0 % 08/07/22 17:00 Baso % (Auto) 0.5 % 08/07/22 17:00 Neut # (Auto) 6.17 10^3/uL (1.8-7.7) 08/07/22 17:00 Lymph # (Auto) 0.9 10^3/uL (0.8-4.8) 08/07/22 17:00 [place] # (Auto) 0.4 10^3/uL (0.2-0.9) 08/07/22 17:00 Eos # (Auto) 0.1 10^3/uL (0.0-0.8) 08/07/22 17:00 Baso # (Auto) 0.0 10^3/uL (0.0-0.1) 08/07/22 17:00 Nucleated RBC % (auto) 0 % 08/07/22 17:00 Nucleated RBCs # 0.0 /100WBC 08/07/22 17:00 Sodium 136 mmol/L (136-145) 08/07/22 17:00 Potassium 4.2 mmol/L (3.5-5.1) 08/07/22 17:00 Chloride 100 mmol/L (98-107) 08/07/22 17:00 Carbon Dioxide 24 mmol/L (22-29) 08/07/22 17:00 Anion Gap 16.2 (5-19) 08/07/22 17:00 BUN 18 mg/dL (6-20) 08/07/22 17:00 Creatinine 0.7 mg/dL (0.5-0.9) 08/07/22 17:00 GFR Calculation 87.2 mL/min (90-130) L 08/07/22 17:00 Glucose 91 mg/dL (65-115) 08/07/22 17:00 Calculated Osmolality 283 mOsm/kg (285-295) L 08/07/22 17:00 Calcium 9.0 mg/dL (8.5-10.5) 08/07/22 17:00 Total Bilirubin 0.4 mg/dL (0.15-1.2) 08/07/22 17:00 AST 15 U/L (0-32) 08/07/22 17:00 ALT 14 U/L (0-33) 08/07/22 17:00 Alkaline Phosphatase 76 U/L (35-105) 08/07/22 17:00 Total Protein 6.4 g/dL (6.6-8.7) L 08/07/22 17:00 Albumin 3.7 g/dL (3.5-5.2) 08/07/22 17:00 Globulin 2.7 g/dL (1.3-4.6) 08/07/22 17:00 Urine Color Yellow (Yellow) 08/07/22 17:33 Urine Appearance Clear (CLEAR) 08/07/22 17:33 Urine pH 6 (5-7) 08/07/22 17:33 Ur Specific [place] 1.010 (1.005-1.030) 08/07/22 17:33 Urine Protein Neg (Negative) 08/07/22 17:33 Urine Glucose (UA) Norm (Normal) 08/07/22 17:33 Urine Ketones Negative (Negative) 08/07/22 17:33 Urine Blood Neg (Negative) 08/07/22 17:33 Urine Nitrate Negative (Negative) 08/07/22 17:33 Urine Bilirubin Neg (Negative) 08/07/22 17:33 Urine Urobilinogen Norm mg/dL (Negative) 08/07/22 17:33 Ur Leukocyte Esterase Trace (Negative) H 08/07/22 17:33 Urine RBC 0-4 /hpf (0-2) H 08/07/22 17:33 Urine WBC 0-4 /hpf (0-5) H 08/07/22 17:33 Ur Squamous Epith Cells 0-4 /hpf (0-5) H 08/07/22 17:33 Amorphous Sediment Not Reportable 08/07/22 17:33 Urine Bacteria Trace /hpf (NONE) 08/07/22 17:33 Salicylates 1.6 mg/dL (3-10) L 08/07/22 17:00 Urine Opiates Screen Negative ng/mL (Negative) 08/07/22 17:33 Acetaminophen < 5.0 ug/mL (10-30) L 08/07/22 17:00 Ur Barbiturates Screen Negative ng/mL (Negative) 08/07/22 17:33 Ur Phencyclidine Scrn Negative ng/mL (Negative) 08/07/22 17:33 Ur Amphetamines Screen Positive ng/mL (Negative) H 08/07/22 17:33 U Benzodiazepines Scrn Negative ng/mL (Negative) 08/07/22 17:33 Urine Cocaine Screen Negative ng/mL (Negative) 08/07/22 17:33 U Marijuana (THC) Screen Negative ng/mL (Negative) 08/07/22 17:33 Ethyl Alcohol < 10 mg/dL (0-10) 08/07/22 17:00 Discharge Plan Discharge Patient Disposition: Home Clinical Impression: Stress at home, Anxiety Condition: Stable Prescriptions: No Action Eliquis 5 mg tablet 5 mg PO BID Rx Instructions: pt states medication on hold- pt states not had in a month-[facility] states last filled 01/13/22 30d/s rx expried mar 2022 ropinirole 4 mg tablet 4 mg PO BEDTIME Qty: 30 5RF Rx Instructions: take two hours before bed paroxetine HCl [Paxil] 30 mg tablet 30 mg PO DAILY Qty: 30 5RF buspirone 15 mg tablet 15 mg PO BID Qty: 60 5RF albuterol sulfate 90 mcg/actuation HFA aerosol inhaler 1 inh inhalation QID PRN (Reason: shortness of breath or wheezing) Qty: 8.5 5RF methotrexate sodium 25 mg/mL solution 25 mg SUBCUT Q7D Qty: 10 2RF Rx Instructions: on fridays folic acid 1 mg tablet 1 mg PO DAILY Qty: 90 2RF (DME) insulin syringe-needle U-100 [TRUEplus Insulin] 1 mL 30 gauge x 5/16 syringe See Rx Instructions .ROUTE .MEDSUPPLY Qty: 100 2RF Rx Instructions: As directed hydrocodone-acetaminophen 5-325 mg tablet 1 tab PO Q6H PRN (Reason: pain) Qty: 14 0RF quetiapine 300 mg tablet 300 mg PO BEDTIME Rx Instructions: take with 200mg gabapentin 600 mg tablet 600 mg PO BEDTIME quetiapine 200 mg tablet 200 mg PO BEDTIME Rx Instructions: take with 300mg pantoprazole 40 mg tablet,delayed release (DR/EC) 40 mg PO BID diclofenac sodium 1 % gel 2 g topical QID PRN (Reason: Pain) Rx Instructions: apply to single elbow, wrist or hand; for hand includes palm/fingers/back of hand Anoro Ellipta 62.5-25 mcg/actuation blister with device 1 inh inhalation DAILY Orencia 125 mg/mL syringe 125 mg SUBCUT Q7D Rx Instructions: on wednesday Discharge Orders: Discharge ED (Routine); Ordered 08/07/22 Ordered By: Gustabo Salamanca Referrals: Svitlana Bustamante DO [Primary Care Provider] - Discharge Diet: Regular Discharge Activity: Increase activity as tolerated Activity Restrictions/Additional Instructions: Follow-up with medical provider as directed in the next 5 to 7 days for reevaluation. Continue taking all home medications as previously prescribed. Return to the ER or your medical provider if condition worsens. Please read and understand discharge instructions. Thank you for choosing [facility] for your healthcare needs today. Please realize this is an emergency room and that we are providing you with a medical screening exam and this may not be complete and all inclusive of all the testing and or work up that you may need to determine your ailment or severity of your illness. It is very important that you follow up as instructed or that you return to the Emergency Department should you have concerns or if your condition changes or worsens in any way. Coding Level of Care Code ED Quick Technician for Vicente Tobin
--- NOTE | 2022-08-07 16:51 | PC.PHAR ---
pt states she takes care of her own medications-pt states she leonardo had her eliquis 5mg bid in a month pt states it was put on hold [facility] states last filled 01/13/22 30d/s states rx mar 2022 no refills-pt states she leonardo had her buspar 15mg bid filled 06/09/22 30d/s,folic acid 1mg daily filled 08/27/21 90d/s,pantoprazole 40mg bid filled 06/22/22 30d/s,paxil 30mg daily filled 06/22/22 30d/s,or ropinirole 4mg hs filled 06/09/22 30d/s states not had for 2 weeks-pt states not had her orencia 125mg q7d for a month rx last filled 04/22/22 28d/s and methotrexate 25mg q7d for about 3 weeks rx filled 04/22/22-pt states she took her last norco 5/325mg on 08/07/22 ext shows last filled 07/24/22 4d/s-
[2022-08-07 17:14] VITALS: BP 116/67; PULSE 82; RESP 18; O2SAT 100
[2022-08-07 17:17] LABS: Basophils % 0.5 %; Eosinophils # 0.1 10^3/uL (0.0-0.8); Hematocrit 39.4 % (37.0-47.0); Lymphocytes # 0.9 10^3/uL (0.8-4.8); Lymphocytes % 12.2 %; Mean Corpuscular Hemoglobin 31.7 pg (28.0-34.0); Mean Corpuscular Volume 96.1 fl (81-99); Mean Platelet Volume 9.1 fL (7.4-10.4); Monocytes # 0.4 10^3/uL (0.2-0.9); Monocytes % 4.8 %; Neutrophils # 6.17 10^3/uL (1.8-7.7); Nucleated Red Blood Cells % 0 %; Platelet Count 191 10^3/cmm (130-400); Red Cell Distribution Width 12.6 % (12.1-15.1); White Blood Count 7.6 10^3/uL (4.0-10.0)
[2022-08-07 17:37] LABS: Alanine Aminotransferase 14 U/L (0-33); Albumin Level 3.7 g/dL (3.5-5.2); Alkaline Phosphatase 76 U/L (35-105); Anion Gap 16.2 (5-19); Aspartate Amino Transferase 15 U/L (0-32); Blood Urea Nitrogen 18 mg/dL (6-20); Carbon Dioxide 24 mmol/L (22-29); Chloride 100 mmol/L (98-107); Creatinine Clr Calc Pharmacy 102.9764; Globulin 2.7 g/dL (1.3-4.6); Glomerular Filtration Rate 87.2 mL/min (90-130); Glucose 91 mg/dL (65-115); Osmolality Calculated 283 mOsm/kg (285-295); Potassium 4.2 mmol/L (3.5-5.1); Salicylate 1.6 mg/dL (3-10); Sodium 136 mmol/L (136-145); Total Bilirubin 0.4 mg/dL (0.15-1.2); Total Protein 6.4 g/dL (6.6-8.7)
[2022-08-07 17:43] LABS: Acetaminophen < 5.0 ug/mL (10-30); Alcohol Level < 10 mg/dL (0-10)
[2022-08-07 17:59] LABS: Amphetamines Screen Urine Positive (Negative); Barbiturates Screen Urine Negative (Negative); Benzodiazepines Screen Urine Negative (Negative); Cocaine Screen Urine Negative (Negative); Opiate Screen Urine Negative (Negative); PCP Screen Urine Negative (Negative); THC Screen Urine Negative (Negative)
[2022-08-07 18:34] LABS: Add Urine Microscopic? YES; Bilirubin Urine Neg (Negative); Blood Urine Neg (Negative); Glucose Urine UA Norm (Normal); Ketones Urine Negative (Negative); Leukocyte Esterase Urine Trace (Negative); Nitrate Urine Negative (Negative); Protein Urine Neg (Negative); Urine Appearance Clear (CLEAR); Urine Color Yellow (Yellow); Urobilinogen Urine Norm (Negative); pH Urine 6 (5-7)
[2022-08-07 18:35] LABS: Bacteria Urine TRACE /hpf; RBC Urine 0-4 /hpf (0-2); Squamous Epithelial Cell Urine 0-4 /hpf (0-5); WBC Urine 0-4 /hpf (0-5)
== END 2022-08-07 20:31 | disposition home or self-care (01) ==
PROVIDERS: Emergency Provider Physician Assistant; PCP Family Medicine
DX: F41.9 Anxiety disorder, unspecified (principal); F43.9 Reaction to severe stress, unspecified; Z79.4 Long term (current) use of insulin; F17.210 Nicotine dependence, cigarettes, uncomplicated; N18.9 Chronic kidney disease, unspecified; Z85.048 Personal history of other malignant neoplasm of rectum, rectosigmoid junction, and anus
CPT/HCPCS: 36415; 80053; 80306; 80307; 81001; 85025; 99283

== ENCOUNTER → 2022-08-14 11:34 | Outpatient (BNVA) | payer MEDICARE, OTHER, SELFPAY | PROVIDERS: PCP Family Medicine; Visit Provider Psychiatry & Neurology Psychiatry | DX: F33.1 Major depressive disorder, recurrent, moderate (principal); G25.81 Restless legs syndrome; G47.33 Obstructive sleep apnea (adult) (pediatric); F10.91 Alcohol use, unspecified, in remission; F15.21 Other stimulant dependence, in remission; F14.21 Cocaine dependence, in remission; F17.200 Nicotine dependence, unspecified, uncomplicated; Z79.899 Other long term (current) drug therapy | CPT/HCPCS: 80061; 83036 ==

== ENCOUNTER → 2022-08-25 13:54 | Outpatient (BNVA) | payer MEDICARE, MEDICAID, SELFPAY | PROVIDERS: PCP Family Medicine; Visit Provider Internal Medicine Pulmonary Disease | DX: J41.1 Mucopurulent chronic bronchitis (principal); F17.200 Nicotine dependence, unspecified, uncomplicated; G47.33 Obstructive sleep apnea (adult) (pediatric); Z86.711 Personal history of pulmonary embolism; Z79.01 Long term (current) use of anticoagulants | CPT/HCPCS: 99214 ==

== ENCOUNTER → 2022-09-03 08:41 | Outpatient (BNVA) | payer MEDICARE, MEDICAID, SELFPAY | PROVIDERS: PCP Family Medicine; Visit Provider Physician Assistant | DX: M47.818 Spondylosis without myelopathy or radiculopathy, sacral and sacrococcygeal region (principal); M47.816 Spondylosis without myelopathy or radiculopathy, lumbar region; M51.37 Other intervertebral disc degeneration, lumbosacral region | CPT/HCPCS: 99213 ==

== ENCOUNTER 2022-09-08 14:17 | Outpatient (CLI) | payer MEDICARE, MEDICAID, SELFPAY ==
[2022-09-11 12:04] LABS: Quantiferon Mitogen >10.00 IU/mL; Quantiferon Nil 0.04 IU/mL; Quantiferon Plus TB1 0.02 IU/mL; Quantiferon Plus TB2 0.02 IU/mL; Quantiferon TB Gold NEGATIVE (NEGATIVE)
== END 2022-09-08 14:18 | disposition home or self-care (01) ==
LOC: LAB 14:21
PROVIDERS: PCP Family Medicine; Visit Provider Internal Medicine
DX: M47.818 Spondylosis without myelopathy or radiculopathy, sacral and sacrococcygeal region (principal)
CPT/HCPCS: 36415; 86480

== ENCOUNTER → 2022-09-17 13:45 | Outpatient (BNVA) | payer MEDICARE, MEDICAID, SELFPAY | PROVIDERS: PCP Family Medicine; Visit Provider Internal Medicine Pulmonary Disease | DX: G47.33 Obstructive sleep apnea (adult) (pediatric) (principal); J41.1 Mucopurulent chronic bronchitis; F17.210 Nicotine dependence, cigarettes, uncomplicated; Z86.711 Personal history of pulmonary embolism; Z79.01 Long term (current) use of anticoagulants | CPT/HCPCS: 99214 ==

== ENCOUNTER 2022-09-30 17:10 | Emergency (ER) | payer MEDICARE, MEDICAID, SELFPAY ==
[2022-09-30 17:13] VITALS: BP 110/66; PULSE 81; RESP 16; TEMP 36.6; O2SAT 100
--- NOTE | 2022-09-30 17:47 | XRR_ITS ---
PROCEDURE INFORMATION: Exam: XR Chest Exam date and time: 09/30/2022 5:55 PM Age: 52 years old Clinical indication: Pain; Chest pressure; Prior surgery; Surgery date: 6+ months; Surgery type: Breast reduction; Additional info: Cp TECHNIQUE: Imaging protocol: Radiologic exam of the chest. Views: 1 view. COMPARISON: CT lung screening [id number] 05/11/2022 and prior chest x-rays 07/10/2021 and 05/22/2020 FINDINGS: Lungs: There is a tiny nodule in the right lateral lung base which is indeterminate. It was not apparent on the prior CT or chest x-rays. No consolidation. Pleural spaces: Unremarkable. No pleural effusion. No pneumothorax. Heart/Mediastinum: Unremarkable. No cardiomegaly. Bones/joints: Unremarkable. XR/XR chest 1V portable [id number] IMPRESSION: There is a tiny nodule in the right lateral lung base which is indeterminate. It was not apparent on the prior CT or chest x-rays. Otherwise unremarkable chest x-ray.
[2022-09-30 18:38] LABS: Basophils # 0.1 10^3/uL (0.0-0.1); Basophils % 0.7 %; Eosinophils # 0.1 10^3/uL (0.0-0.8); Eosinophils % 1.5 %; Hematocrit 40.3 % (37.0-47.0); Hemoglobin 13.8 g/dL (11.5-15.3); Lymphocytes # 2.7 10^3/uL (0.8-4.8); Lymphocytes % 39.7 %; Mean Corpuscular HGB Conc 34.2 g/dL (30.0-36.0); Mean Corpuscular Hemoglobin 32.4 pg (28.0-34.0); Mean Corpuscular Volume 94.6 fl (81-99); Mean Platelet Volume 8.9 fL (7.4-10.4); Monocytes # 0.3 10^3/uL (0.2-0.9); Monocytes % 4.8 %; Neutrophils # 3.56 10^3/uL (1.8-7.7); Nucleated Red Blood Cells % 0 %; Platelet Count 266 10^3/cmm (130-400); Red Blood Count 4.26 10^6/uL (4.1-5.3); Red Cell Distribution Width 13.2 % (12.1-15.1); White Blood Count 6.7 10^3/uL (4.0-10.0)
[2022-09-30 18:50] LABS: INR 0.91 (0.8-1.2)
[2022-09-30 19:03] LABS: Troponin(5th) Baseline 6 ng/L (0-10)
[2022-09-30 19:09] LABS: Alanine Aminotransferase 17 U/L (0-33); Albumin Level 4.2 g/dL (3.5-5.2); Alkaline Phosphatase 70 U/L (35-105); Anion Gap 17.3 (5-19); Aspartate Amino Transferase 16 U/L (0-32); Blood Urea Nitrogen 17 mg/dL (6-20); Calcium 9.8 mg/dL (8.5-10.5); Carbon Dioxide 24 mmol/L (22-29); Chloride 102 mmol/L (98-107); Globulin 2.5 g/dL (1.3-4.6); Glomerular Filtration Rate 87.2 mL/min (90-130); Glucose 111 mg/dL (65-115); NT Pro B Type Natriuretic Pept 36 pg/mL (0-125); Osmolality Calculated 290 mOsm/kg (285-295); Potassium 4.3 mmol/L (3.5-5.1); Sodium 139 mmol/L (136-145); Total Bilirubin 0.3 mg/dL (0.15-1.2); Total Protein 6.7 g/dL (6.6-8.7)
[2022-09-30 19:17] VITALS: BP 112/61; PULSE 85; RESP 18; O2SAT 100
--- NOTE | 2022-09-30 19:19 | ECG_ITS ---
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 Measurements Intervals [place] Rate: 87 P: 82 [place]: 156 QRS: 66 QRSD: 86 T: 70 QT: 361 QTc: 436 Interpretive Statements SINUS RHYTHM POSSIBLE LEFT ATRIAL ENLARGEMENT [-0.1mV P-WAVE IN V1/V2] POSSIBLE RIGHT VENTRICULAR CONDUCTION DELAY [RSR (QR) IN V1/V2] INTERPRETATION BASED ON A DEFAULT AGE OF 40 YEARS Compared to ECG 07/10/2021 20:00:55 No significant changes Electronically Signed On 09-30-2022 23:27:[address] M.D. [email or web address]
--- NOTE | 2022-09-30 19:19 | ECG_ITS ---
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 Measurements Intervals [place] Rate: 87 P: 82 DC: 156 QRS: 66 QRSD: 86 T: 70 QT: 361 QTc: 436 Interpretive Statements SINUS RHYTHM POSSIBLE LEFT ATRIAL ENLARGEMENT [-0.1mV P-WAVE IN V1/V2] POSSIBLE RIGHT VENTRICULAR CONDUCTION DELAY [RSR (QR) IN V1/V2] INTERPRETATION BASED ON A DEFAULT AGE OF 40 YEARS Compared to ECG 07/10/2021 20:00:55 No significant changes Electronically Signed On 09-30-2022 23:37:[address] M.D. [email or web address]
[2022-09-30 21:16] LABS: Troponin 5 2HR Delta 0 ABS# (0-10)
[2022-09-30 21:42] VITALS: BP 91/60; PULSE 83; RESP 18; TEMP 36.6; O2SAT 99
--- NOTE | 2022-09-30 22:25 | CTR_ITS ---
PROCEDURE INFORMATION: Exam: CTA Chest With Contrast Exam date and time: 09/30/2022 11:27 PM Age: 52 years old Clinical indication: Angina and shortness of breath; Patient HX: HX of pe; Additional info: SOB, cp, HX of pe TECHNIQUE: Imaging protocol: Computed tomographic angiography of the chest with contrast. Exam focused on the arteries. 3D rendering (Not supervised by radiologist): MIP and/or 3D reconstructed images were created by the technologist. Radiation optimization: All CT scans at this facility use at least one of these dose optimization techniques: automated exposure control; mA and/or kV adjustment per patient size (includes targeted exams where dose is matched to clinical indication); or iterative reconstruction. Contrast material: OMNI 350; Contrast volume: 100 ml; Contrast route: INTRAVENOUS (IV); REPORTING DATA: Count of CT and Cardiac NM exams in prior 12 months: This patient has received [address] and 0 known cardiac nuclear medicine studies in the 12 months prior to the current study. COMPARISON: 1. CT angio chest PE protcl [id number] 05/23/2019 8:36 AM 2. CTA thoracic/abdomen/pelvis aorta 11/19/2018 118 AM RADIATION DOSE METRICS: Total DLP (mGy-cm): 401.09 FINDINGS: Limitations: Streak and motion artifacts limit evaluation. Pulmonary arteries: No filling defects in the pulmonary arteries to suggest acute pulmonary emboli. Chronic linear nonocclusive embolic thrombus of the right branch pulmonary artery and right lower lobe pulmonary artery, similar to prior examinations dating back to 2019. Aorta: There is no thoracic aortic aneurysm. Lungs: There are mild bilateral dependent atelectatic changes of the lower lobes. Central peribronchial thickening as seen in bronchitis/pneumonitis (series 7, images 27 - 29; series 8, image 40). Pleural spaces: Unremarkable. No pneumothorax. No pleural effusion. Heart: The heart is normal in size. There are no pericardial fluid collections. Lymph nodes: No enlarged mediastinal or hilar lymph nodes are seen. Bones/joints: No acute fracture is seen. Soft tissues: Unremarkable. Other findings: No acute findings in the upper abdomen. CT/CT angio chest PE protcl [id number] IMPRESSION: 1. No evidence of acute pulmonary embolus. There is chronic string like nonocclusive embolic thrombus of the right branch pulmonary artery and right lower lobe pulmonary artery similar to the comparison examinations. 2. Central peribronchial thickening as seen in bronchitis/pneumonitis (series 7, images 27 - 29; series 8, image 40). 3. Dependent atelectatic changes of bilateral lower lobes.
[2022-09-30 22:26] VITALS: BP 113/78; PULSE 86; RESP 16; O2SAT 96
--- NOTE | 2022-09-30 22:30 | ED_ITS ---
HPI - SOB/Dyspnea General: Chief Complaint: Shortness of Breath/Dyspnea Stated Complaint: sore throat cheast pain sob Time Seen by Provider: 09/30/22 22:11 History of Present Illness: HPI Narrative: Patient is a 52-year-old female who comes to the ED with chest pain and shortness of breath. Patient has a history of PE and CKD. Patient is on Eliquis. 3 days ago she started having shortness of breath. When she takes a deep breath she has sharp pain in her chest. Today patient stated she started developing chest pain at rest. She rates the chest pain currently a 9 out of 10. Chest pain is located in the middle of her chest and radiates to her back. Endorses fatigue. Denies any fevers, vomiting, abdominal pain, cough, sore throat, bladder or bowel symptoms. Associated symptoms: Reports chest pain; Deny abdominal pain, fever(s), nausea, orthopnea, palpitations or vomiting Review of Systems Const: Reports: fatigue; Denies: fever(s) or chills Eyes: Denies: change in vision or eye discomfort ENMT: Denies: throat pain, odynophagia, nasal discharge or nasal congestion Card: Reports: chest pain; Denies: palpitations, edema, swelling of feet/ankles, dyspnea on exertion or orthopnea Resp: Reports: dyspnea, non-productive cough (Chronic cough) and pain on inspiration; Denies: productive cough GI: Denies: abdominal pain, nausea, vomiting, diarrhea, constipation or hematochezia : Denies: flank pain, dysuria or hematuria Musc: Denies: neck pain, back pain or extremity swelling Skin/Breast: Denies: rash or new lesions Neuro: Denies: headache(s), numbness in extremities or weakness in extremities PFS ED PFSH: Medical History Chronic post-traumatic stress disorder CKD (chronic kidney disease) DDD (degenerative disc disease), lumbar Hydronephrosis of right kidney Immunosuppression Lumbar radiculitis Lumbar spondylosis Obstructive sleep apnea Osteoarthritis of knees, bilateral Peripheral neuropathy Psoriasis Psoriatic arthritis Psychiatric care Psychiatric care Pulmonary embolism Rectal cancer Cancer free for 14 years. Restless leg syndrome Surgical History Colostomy in place H/O tubal ligation H/O: hysterectomy Due to fibroids. History of resection of rectum Family History Other Cancer Social History Smoking and tobacco status: current every day smoker cigarettes Packs smoked per day: 3 Years cigarettes smoked: 41 [ Other cigarette details: Pt reports smoking at age 3] Smoking risk assessment/counseling performed?: No Alcohol intake: current Alcohol intake frequency: holidays/special occasions only Counseling given: No Substance/Drug Use: never Counseling given: No Lives independently: Yes Household members: none Marital status: Legally Current occupational status: disabled Do you think of yourself as: Straight/Heterosexual Current gender identity: Female Physical Exam Const: COMMON NORMALS: patient oriented x3 and alert HENMT: COMMON NORMALS: normocephalic HEAD & SCALP: normocephalic MOUTH: Normal oral and palatal mucosa present THROAT: posterior oropharynx normal and uvula midline Neck/C-Spine: COMMON NORMALS: supple GENERAL: Yes normal visual inspection Resp: COMMON NORMALS: normal respiratory effort, No retractions, No use of accessory muscles and clear to auscultation bilaterally AUSCULTATION: clear to auscultation bilaterally Cardio: COMMON NORMALS: regular rate, regular rhythm, S1 normal heart sound present, S2 normal heart sound present, No gallops present (Cardio), No clicks present (Cardio), No murmurs present (Cardio) and Peripheral pulses 2+ throughout RATE: regular rate RHYTHM: regular rhythm HEART SOUNDS: S1 normal heart sound present and S2 normal heart sound present PERIPHERAL PULSES: Peripheral pulses 2+ throughout GI: COMMON NORMALS: Normal to inspection, nondistended, normoactive bowel sounds present, Soft to palpation, non-tender and no masses PALPATION: Yes Soft to palpation : COMMON NORMALS: Yes no CVA tenderness BLADDER/KIDNEY EXAM: Yes no CVA tenderness Back/Pelvis: COMMON NORMALS: no CVA tenderness Extremity: COMMON NORMALS: normal to inspection Neuro: COMMON NORMALS: patient oriented x3 SENSORIUM/ORIENTATION: Yes alert GAIT: Yes Normal gait present Skin: GENERAL SKIN EXAM: dry skin Course Vital Signs: Vital signs: Vital Signs Temperature 97.9 F 09/30/22 21:42 Pulse Rate 67 08/03/23 00:23 Respiratory Rate 18 10/01/22 00:23 Blood Pressure 102/64 10/01/22 00:00 Pulse Oximetry 98 10/01/22 00:23 Oxygen Delivery Me thod Room Air 10/01/22 00:23 MDM - SOB/Dyspnea Medical Decision Making Patient is a 52-year-old female who comes to the ED with chest pain and shortness of breath. Patient has a history of PE and CKD. Patient is on Eliquis. 3 days ago she started having shortness of breath. When she takes a deep breath she has sharp pain in her chest. Today patient stated she started developing chest pain at rest. She rates the chest pain currently a 9 out of 10. Chest pain is located in the middle of her chest and radiates to her back. Endorses fatigue. Denies any fevers, vomiting, abdominal pain, cough, sore throat, bladder or bowel symptoms. Vitals are stable. Patient appears nontoxic in no acute distress or pain. Rest of exam is benign. CBC and CMP are unremarkable. Baseline troponin 6 and 2-hour troponin is 6 as well with a 0 delta. EKG shows a normal sinus rhythm with no ST segment elevation or depression seen in a rate of 67 bpm. Chest x-ray shows tiny nodule right lateral lung base which is indeterminate but otherwise unremarkable chest x-ray. CTA of chest was performed given patient's history of PEs and symptoms. CTA of chest shows no evidence of acute PE but does note some central peribronchial thickening which is suggestive of bronchitis. Influenza and COVID were both negative. Patient was given DuoNeb breathing treatment here in the ED and morphine for pain. She was stable for discharge home and diagnosed with bronchitis and atypical chest pain. given a dose of doxycycline and Solu- Medrol here in the ED. She was sent home with a prescription for Medrol Dosepak and doxycycline. Follow-up with PCP within the next week for reevaluation. Return to ED precautions given. Patient understood and agreed with plan. Lab Data I reviewed the patient's lab results. 09/30/22 18:28 09/30/22 18:28 Labs/Radiology: Radiology Impressions Chest X-Ray 09/30/22 17:47 IMPRESSION: There is a tiny nodule in the right lateral lung base which is indeterminate. It was not apparent on the prior CT or chest x-rays. Otherwise unremarkable chest x-ray. Chest CTA 09/30/22 22:25 IMPRESSION: 1. No evidence of acute pulmonary embolus. There is chronic string like nonocclusive embolic thrombus of the right branch pulmonary artery and right lower lobe pulmonary artery similar to the comparison examinations. 2. Central peribronchial thickening as seen in bronchitis/pneumonitis (series 7, images 27 - 29; series 8, image 40). 3. Dependent atelectatic changes of bilateral lower lobes. Laboratory Results WBC 6.7 10^3/uL (4.0-10.0) 09/30/22 18: RBC 4.26 10^6/uL (4.1-5.3) 09/30/22 18: Hgb 13.8 g/dL (11.5-15.3) 09/30/22 18: Hct 40.3 % (37.0-47.0) 09/30/22 18: MCV 94.6 fl (81-99) 09/30/22 18: MCH 32.4 pg (28.0-34.0) 09/30/22 18: MCHC 34.2 g/dL (30.0-36.0) 09/30/22 18: RDW 13.2 % (12.1-15.1) 09/30/22 18: Plt Count 266 10^3/cmm (130-400) 09/30/22 18: MPV 8.9 fL (7.4-10.4) 09/30/22 18: Neut % (Auto) 53.0 % 09/30/22 18: Lymph % (Auto) 39.7 % 09/30/22 18: Mcminn % (Auto) 4.8 % 09/30/22 18: Eos % (Auto) 1.5 % 09/30/22 18: Baso % (Auto) 0.7 % 09/30/22 18: Neut # (Auto) 3.56 10^3/uL (1.8-7.7) 09/30/22 18: Lymph # (Auto) 2.7 10^3/uL (0.8-4.8) 09/30/22 18: Mcminn # (Auto) 0.3 10^3/uL (0.2-0.9) 09/30/22 18:28 Eos # (Auto) 0.1 10^3/uL (0.0-0.8) 09/30/22 18: Baso # (Auto) 0.1 10^3/uL (0.0-0.1) 09/30/22 18: Nucleated RBC % (auto) 0 % 09/30/22 18: Nucleated RBCs # 0.0 /100WBC 09/30/22 18: PT 12.50 SECONDS (12.1-14.9) 09/30/22 18: INR 0.91 (0.8-1.2) 09/30/22 18: Sodium 139 mmol/L (136-145) 09/30/22 18: Potassium 4.3 mmol/L (3.5-5.1) 09/30/22 18: Chloride 102 mmol/L (98-107) 09/30/22 18: Carbon Dioxide 24 mmol/L (22-29) 09/30/22 18: Anion Gap 17.3 (5-19) 09/30/22 18: BUN 17 mg/dL (6-20) 09/30/22 18: Creatinine 0.7 mg/dL (0.5-0.9) 09/30/22 18: GFR Calculation 87.2 mL/min (90-130) L 09/30/22 18: Glucose 111 mg/dL (65-115) 09/30/22 18: Calculated Osmolality 290 mOsm/kg (285-295) 09/30/22 18: Calcium 9.8 mg/dL (8.5-10.5) 09/30/22 18: Total Bilirubin 0.3 mg/dL (0.15-1.2) 09/30/22 18: AST 16 U/L (0-32) 09/30/22 18: ALT 17 U/L (0-33) 09/30/22 18: Alkaline Phosphatase 70 U/L (35-105) 09/30/22 18:28 Troponin T Baseline 6 ng/L (0-10) 09/30/22 18: Troponin T 120 Minute 6.00 ng/L (0-10) 09/30/22 20:29 Delta Troponin T 0 ABS# (0-10) 09/30/22 20:29 Troponin T Hi Sens 6Hr 6.00 ng/L (0-10) 10/01/22 00:05 Troponin T Hi Sens 6Hr Delta 0 ng/L (0-12) 10/01/22 00:05 NT-Pro-B Natriuret Pep 36 pg/mL (0-125) 09/30/22 18:28 Total Protein 6.7 g/dL (6.6-8.7) 09/30/22 18:28 Albumin 4.2 g/dL (3.5-5.2) 09/30/22 18:28 Globulin 2.5 g/dL (1.3-4.6) 09/30/22 18:28 Influenza Type A Ag negative (Negative) 09/30/22 22:40 Influenza Type B Ag negative (Negative) 09/30/22 22:40 SARS-CoV-2 Ag (Rapid) negative (Negative) 09/30/22 22:40 EKG Data EKG 1: EKG Interpretation Date: 09/30/22 Interpretation: Sinus rhythm, no ST segment elevation or depression seen. 67 bpm. Discharge Plan Discharge Patient Disposition: Home Clinical Impression: Bronchitis, Atypical chest pain Condition: Stable Prescriptions: New doxycycline hyclate 100 mg capsule 100 mg PO BID 10 Days Qty: 20 0RF methylprednisolone 4 mg tablets,dose pack See Rx Instructions .ROUTE .COMPLEX Qty: 21 0RF Rx Instructions: orally per package directions No Action albuterol sulfate 90 mcg/actuation HFA aerosol inhaler 1 inh inhalation QID PRN (Reason: shortness of breath or wheezing) Qty: 8.5 5RF methotrexate sodium 25 mg/mL solution 25 mg SUBCUT Q7D Qty: 10 2RF Rx Instructions: on fridays folic acid 1 mg tablet 1 mg PO DAILY Qty: 90 2RF buspirone 15 mg tablet 15 mg PO BID Qty: 60 5RF quetiapine 300 mg tablet 300 mg PO BEDTIME Qty: 30 5RF Rx Instructions: take with 200mg ropinirole 4 mg tablet 4 mg PO BEDTIME Qty: 30 5RF Rx Instructions: take two hours before bed gabapentin 600 mg tablet 600 mg PO BEDTIME Qty: 30 5RF paroxetine HCl [Paxil] 40 mg tablet 40 mg PO DAILY Qty: 30 4RF tramadol 100 mg tablet 100 mg PO BID PRN (Reason: pain) Qty: 60 0RF Rx Instructions: Must last 30 days (DME) insulin syringe-needle U-100 [TRUEplus Insulin] 1 mL 30 gauge x 5/16 syringe See Rx Instructions .ROUTE .MEDSUPPLY Qty: 100 2RF Rx Instructions: As directed Orencia 125 mg/mL syringe 125 mg SUBCUT Q7D Qty: 4 3RF Rx Instructions: on wednesday Eliquis 5 mg tablet 5 mg PO BID Qty: 180 0RF quetiapine 200 mg tablet See Rx Instructions .ROUTE .COMPLEX Qty: 30 5RF Dose Instruction: TAKE ONE TABLET BY MOUTH DAILY Rx Instructions: TAKE ONE TABLET BY MOUTH DAILY pantoprazole 40 mg tablet,delayed release (DR/EC) 40 mg PO BID diclofenac sodium 1 % gel 2 g topical QID PRN (Reason: Pain) Rx Instructions: apply to single elbow, wrist or hand; for hand includes palm/fingers/back of hand Anoro Ellipta 62.5-25 mcg/actuation blister with device 1 inh inhalation DAILY Discharge Orders: Discharge ED (Routine); Ordered 10/01/22 Ordered By: Gustabo Salamanca Referrals: Svitlana Bustamante DO [Primary Care Provider] - Discharge Diet: Regular Discharge Activity: Increase activity as tolerated Patient Instructions: Bronchitis (Acute) - Adult Activity Restrictions/Additional Instructions: 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 Take medications as prescribed. Return to the ER or your medical provider if condition worsens. Please read and understand discharge instructions. Thank you for choosing [facility] for your healthcare needs today. Please realize this is an emergency room and that we are providing you with a medical screening exam and this may not be complete and all inclusive of all the testing and or work up that you may need to determine your ailment or severity of your illness. It is very important that you follow up as instructed or that you return to the Emergency Department should you have concerns or if your condition changes or worsens in any way. Coding Level of Care Code ED Offline Cutter for Vicente Tobin
[2022-09-30] MEDS: ondansetron 2 mg/ML SDV 2 mL 4 MG IVP (22:37)
[2022-09-30] MEDS: morphine 4 mg/mL SDV 1 mL IVP (22:38)
[2022-09-30 22:41] VITALS: BP 104/76; PULSE 73; RESP 16; O2SAT 97
[2022-09-30 23:08] LABS: Influenza A by IFA negative (Negative); Influenza B by IFA negative (Negative)
[2022-09-30 23:09] LABS: SARS Covid-2 Antigen negative (Negative)
[2022-09-30] MEDS: iohexol 350 mg/mL 500 mL Btl (per mL) IV (23:40)
--- NOTE | 2022-09-30 23:47 | ECG_ITS ---
[facility] Test Date: 2022-09-30 Pat Name: Maura Hermosillo Department: Room: Gender: Female Bone Drier: : 1970 Requested By: Samuel Monteiro Order Number: [id number] Tres MD: Tamar Lane M.D. Measurements Intervals [place] Rate: 67 P: 57 MA: 146 QRS: 61 QRSD: 88 T: 65 QT: 404 QTc: 429 Interpretive Statements SINUS RHYTHM Compared to ECG 09/30/2022 19:19:37 No significant changes Electronically Signed On 09-30-2022 23:38:[address] M.D. [id number]
[2022-10-01] VITALS: BP 102/64; PULSE 69; RESP 16; O2SAT 100
[2022-10-01] MEDS: ipratropium-albuterol 3 mL Neb 6 ML INHALATION (00:21)
[2022-10-01 00:22] VITALS: PULSE 69; RESP 18; O2SAT 98
[2022-10-01 00:23] VITALS: PULSE 67; RESP 18; O2SAT 98
[2022-10-01 00:55] LABS: Troponin 5 6HR Delta 0 ng/L (0-12)
[2022-10-01] MEDS: doxycycline 100 mg Tablet PO (01:46)
== END 2022-10-01 01:56 | disposition home or self-care (01) ==
PROVIDERS: Emergency Medicine; Emergency Provider Physician Assistant; PCP Family Medicine
DX: J40 Bronchitis, not specified as acute or chronic (principal); R07.89 Other chest pain; N18.9 Chronic kidney disease, unspecified; F17.210 Nicotine dependence, cigarettes, uncomplicated; Z79.01 Long term (current) use of anticoagulants; Z79.899 Other long term (current) drug therapy; Z86.711 Personal history of pulmonary embolism
CPT/HCPCS: 36415; 71045; 71275; 80053; 83880; 84484; 85025; 85610; 87426; 87804; 93005; 94640; 96374; 96375; 99285; J2270; J2405; J2930; Q9967

== ENCOUNTER 2022-11-13 19:42 | Emergency (ER) | payer MEDICARE, MEDICAID, SELFPAY ==
[2022-11-13 19:47] VITALS: BP 124/61; PULSE 86; RESP 18; TEMP 36.6; O2SAT 92; BMI 29.2
--- NOTE | 2022-11-13 20:50 | CTR_ITS ---
PROCEDURE INFORMATION: Exam: CT Abdomen And Pelvis Without Contrast Exam date and time: 11/13/2022 9:30 PM Age: 52 years old Clinical indication: Abdominal pain; Prior surgery; Surgery date: 6+ months; Surgery type: Colostomy. Rectal resection. Hysterectomy. Patient HX: C/O left flank pain. History of rectal cancer. ; Additional info: Left flank/abd pain TECHNIQUE: Imaging protocol: Computed tomography of the abdomen and pelvis without contrast. Radiation optimization: All CT scans at this facility use at least one of these dose optimization techniques: automated exposure control; mA and/or kV adjustment per patient size (includes targeted exams where dose is matched to clinical indication); or iterative reconstruction. REPORTING DATA: Count of CT and Cardiac NM exams in prior 12 months: This patient has received 2 known CTs and 0 known cardiac nuclear medicine studies in the 12 months prior to the current study. COMPARISON: CT abdomen pelvis w con* [id number] 08/05/2020 2:18 PM RADIATION DOSE METRICS: Total DLP (mGy-cm): 735.43 FINDINGS: Liver: Normal. No mass. Gallbladder and bile ducts: Normal. No calcified stones. No ductal dilation. Pancreas: Normal. No ductal dilation. Spleen: Normal. No splenomegaly. Adrenal glands: Normal. No mass. Kidneys and ureters: Normal. No hydronephrosis. Stomach and bowel: Left-sided ostomy. Appendix: No evidence of appendicitis. Intraperitoneal space: Unremarkable. No free air. No significant fluid collection. Vasculature: Unremarkable. No abdominal aortic aneurysm. Lymph nodes: Unremarkable. No enlarged lymph nodes. Urinary bladder: Unremarkable as visualized. Reproductive: Unremarkable as visualized. Bones/joints: Unremarkable. No acute fracture. Soft tissues: Unremarkable. CT/CT kidney stone [id number] IMPRESSION: Left-sided ostomy.
--- NOTE | 2022-11-13 20:52 | W.ED.FEMALGU ---
HPI - Female Genitourinary General: Chief complaint: Urogenital-Female Stated complaint: Left lower abdomen into left flank burning type pain with nausea and difficulty urinate Time Seen by Provider: 11/13/22 19:54 Source: patient Mode of arrival: ambulatory Limitations: no limitations History of Present Illness: Patient is a 52-year-old female with history of colostomy presents with 2-day onset of a burning, very sensitive type pain to touch in her left lower abdomen that radiates around to her left lower back. It only stays on the left side. She has had some nausea with no vomiting. She has a colostomy with no bloody stool output. She states she has had some difficulty urinating without dysuria or hematuria, states difficulty starting her stream she is not noticed any rash or lesions that are new to the area. Does have some skin breakdown around her colostomy. She states she did have shingles in the left lower back at one time. No fall or traumatic injury. Nothing seems to make the pain better, touching and movement makes the pain worse. Associated symptoms: Reports abdominal pain and nausea; Deny headache(s) Review of Systems Const: Denies: fever(s) or chills Card: Denies: chest pain Resp: Denies: dyspnea or productive cough GI: Reports: abdominal pain and nausea; Denies: vomiting or change in stool character : Reports: flank pain, difficulty voiding and urinary hesitancy; Denies: dysuria or urinary incontinence Skin/Breast: Denies: rash (Chronic psoriasis unchanged) Neuro: Denies: headache(s), numbness in extremities or weakness in extremities [facility] PFSH: Medical History Chronic post-traumatic stress disorder CKD (chronic kidney disease) DDD (degenerative disc disease), lumbar Hydronephrosis of right kidney Immunosuppression Lumbar radiculitis Lumbar spondylosis Obstructive sleep apnea Osteoarthritis of knees, bilateral Peripheral neuropathy Psoriasis Psoriatic arthritis Psychiatric care Psychiatric care Pulmonary embolism Rectal cancer Cancer free for 14 years. Restless leg syndrome Surgical History Colostomy in place H/O tubal ligation H/O: hysterectomy Due to fibroids. History of resection of rectum Family History Other Cancer Social History Smoking and tobacco status: current every day smoker cigarettes Packs smoked per day: 3 Years cigarettes smoked: 41 [ Other cigarette details: Pt reports smoking at age 3] Smoking risk assessment/counseling performed?: No Alcohol intake: current Alcohol intake frequency: holidays/special occasions only Counseling given: No Substance/Drug Use: never Counseling given: No Lives independently: Yes Household members: none Marital status: Legally Current occupational status: disabled Do you think of yourself as: Straight/Heterosexual Current gender identity: Female Physical Exam Const: COMMON NORMALS: patient oriented x3 and alert GENERAL APPEARANCE: cooperative; not comfortable and not ill appearing Neck/C-Spine: COMMON NORMALS: no meningeal signs Resp: COMMON NORMALS: normal respiratory effort and clear to auscultation bilaterally AUSCULTATION: clear to auscultation bilaterally Cardio: COMMON NORMALS: regular rate and regular rhythm RATE: regular rate RHYTHM: regular rhythm GI: COMMON NORMALS: Soft to palpation and No hepatosplenomegaly present PALPATION: Yes Soft to palpation, Yes Tenderness to palpation present (GI) Details: LLQ, Yes No hepatosplenomegaly present and Yes Other GI palpation findings present (Colostomy bag left lower abdomen) Back/Pelvis: LUMBAR SPINE/LOWER BACK: Yes normal to inspection, Yes lumbar ROM normal and No lumbar spinal tenderness Extremity: COMMON NORMALS: normal to inspection and full ROM Neuro: COMMON NORMALS: patient oriented x3 SENSORIUM/ORIENTATION: Yes alert MENINGEAL SIGNS: Yes no meningeal signs Skin: RASHES: rashes noted (Scattered psoriasis rash, no shingles) Procedures Stool Hemoccult Procedural Steps Taken: stool placed in appropriate test area, developer placed on stool and control areas and controls appropriately positive and negative Hemoccult result: negative Course Vital Signs: Vital signs: Vital Signs Temperature 97.8 F 11/13/22 19:47 Pulse Rate 68 11/13/22 22:36 Respiratory Rate 16 11/13/22 22:36 Blood Pressure 111/60 11/13/22 22:36 Pulse Oximetry 99 11/13/22 22:36 Oxygen Delivery Me thod Room Air 11/13/22 19:47 MDM - Female Medical Decision Making Patient with 2-day onset of tenderness to the skin of her left lower abdomen and left lower back without notable rash at this time. Pain is reproducible to very light touch and she describes as burning. We will proceed with labs, CT scan and urinalysis. Advised patient if tests are unremarkable then could be developing shingles rash which would be more consistent with her history and exam. Patient was treated for her pain with 2 doses of IV morphine and given IV Zofran. CBC, CMP, lipase, urinalysis and CT of the abdomen pelvis are all unremarkable. At this time advised will go ahead and give her prescription for acyclovir to begin if she develops a shingles rash and will give her a short course of pain medicine and return precautions given. She verbalized understanding agrees with plan of care. She is stable for discharge home do not feel she would benefit from further emergent treatment or hospitalization Differential Diagnosis Likely abdominal pain, calculus of kidney, diverticulitis and gastroenteritis Medical Records I reviewed the patient's medical records. Lab Data I reviewed the patient's lab results. 11/13/22 21:03 11/13/22 21:03 Radiology Impressions Abdomen/Pelvis CT 11/13/22 20:50 IMPRESSION: Left-sided ostomy. Laboratory Results WBC 5.99 10^3/uL (3.29-11.43) 11/13/22 21: RBC 3.96 10^6/uL (3.85-5.65) 11/13/22 21:03 Hgb 12.70 g/dL (11.27-16.99) 11/13/22 21:03 Hct 36.8 % (36-47) 11/13/22 21:03 MCV 92.9 fl (85-98) 11/13/22 21:03 MCH 32.1 pg (27-33) 11/13/22 21: MCHC 34.5 g/dL (30-55) 11/13/22 21:03 RDW 12.9 % (12.1-15.1) 11/13/22 21:03 Plt Count 273 10^3/cmm (157-399) 11/13/22 21:03 MPV 9.8 fL (7.4-10.4) 11/13/22 21:03 Neut % (Auto) 55.8 % 11/13/22 21:03 Lymph % (Auto) 35.9 % 11/13/22 21:03 [place] % (Auto) 6.3 % 11/13/22 21:03 Eos % (Auto) 1.3 % 11/13/22 21:03 Baso % (Auto) 0.5 % 11/13/22 21:03 Neut # (Auto) 3.34 10^3/uL (1.8-7.7) 11/13/22 21:03 Lymph # (Auto) 2.2 10^3/uL (0.8-4.8) 11/13/22 21:03 [place] # (Auto) 0.4 10^3/uL (0.2-0.9) 11/13/22 21:03 Eos # (Auto) 0.1 10^3/uL (0.0-0.8) 11/13/22 21:03 Baso # (Auto) 0.0 10^3/uL (0.0-0.1) 11/13/22 21:03 Nucleated RBC % (auto) 0 % 11/13/22 21:03 Nucleated RBCs # 0.0 /100WBC 11/13/22 21:03 Sodium 139 mmol/L (136-145) 11/13/22 21:03 Potassium 4.7 mmol/L (3.5-5.1) 11/13/22 21:03 Chloride 103 mmol/L (98-107) 11/13/22 21:03 Carbon Dioxide 27 mmol/L (22-29) 11/13/22 21:03 Anion Gap 13.7 (5-19) 11/13/22 21:03 BUN 10 mg/dL (6-20) 11/13/22 21:03 Creatinine 0.7 mg/dL (0.5-0.9) 11/13/22 21:03 GFR Calculation 87.2 mL/min (90-130) L 11/13/22 21:03 Glucose 86 mg/dL (65-115) 11/13/22 21:03 Calculated Osmolality 286 mOsm/kg (285-295) 11/13/22 21:03 Calcium 9.6 mg/dL (8.5-10.5) 11/13/22 21:03 Total Bilirubin 0.4 mg/dL (0.15-1.2) 11/13/22 21:03 AST 21 U/L (0-32) 11/13/22 21:03 ALT 13 U/L (0-33) 11/13/22 21:03 Alkaline Phosphatase 65 U/L (35-105) 11/13/22 21:03 Total Protein 6.9 g/dL (6.6-8.7) 11/13/22 21:03 Albumin 4.2 g/dL (3.5-5.2) 11/13/22 21:03 Globulin 2.7 g/dL (1.3-4.6) 11/13/22 21:03 Lipase 23 U/L (13-60) 11/13/22 21:03 Urine Color Yellow (Yellow) 11/13/22 21:03 Urine Appearance Clear (CLEAR) 11/13/22 21:03 Urine pH 5 (5-7) 11/13/22 21:03 Ur Specific Runge 1.015 (1.005-1.030) 11/13/22 21:03 Urine Protein Neg (Negative) 11/13/22 21:03 Urine Glucose (UA) Norm (Normal) 11/13/22 21:03 Urine Ketones Negative (Negative) 11/13/22 21:03 Urine Blood Neg (Negative) 11/13/22 21:03 Urine Nitrate Negative (Negative) 11/13/22 21:03 Urine Bilirubin Neg (Negative) 11/13/22 21:03 Urine Urobilinogen Neg mg/dL (Negative) 11/13/22 21:03 Ur Leukocyte Esterase Negative (Negative) 11/13/22 21:03 Urine RBC 0-4 /hpf (0-2) H 11/13/22 21:03 Urine WBC Rare /hpf (0-5) 11/13/22 21:03 Ur Squamous Epith Cells Rare /hpf (0-5) 11/13/22 21:03 Amorphous Sediment Not Reportable 11/13/22 21:03 Urine Bacteria None /hpf (NONE) 11/13/22 21:03 All radiology interpretation(s) finalized by discharge Discharge Plan Discharge Patient Disposition: Home Clinical Impression: Left-sided abdominal pain of unknown etiology Condition: Stable Prescriptions: New hydrocodone-acetaminophen 5-325 mg tablet 1 - 2 tab PO Q6H PRN (Reason: pain) Qty: 20 0RF acyclovir 800 mg tablet 800 mg PO TID 7 Days Qty: 21 0RF No Action albuterol sulfate 90 mcg/actuation HFA aerosol inhaler 1 inh inhalation QID PRN (Reason: shortness of breath or wheezing) Qty: 8.5 5RF methotrexate sodium 25 mg/mL solution 25 mg SUBCUT Q7D Qty: 10 2RF Rx Instructions: on fridays folic acid 1 mg tablet 1 mg PO DAILY Qty: 90 2RF buspirone 15 mg tablet 15 mg PO BID Qty: 60 5RF quetiapine 300 mg tablet 300 mg PO BEDTIME Qty: 30 5RF Rx Instructions: take with 200mg ropinirole 4 mg tablet 4 mg PO BEDTIME Qty: 30 5RF Rx Instructions: take two hours before bed gabapentin 600 mg tablet 600 mg PO BEDTIME Qty: 30 5RF paroxetine HCl [Paxil] 40 mg tablet 40 mg PO DAILY Qty: 30 4RF (DME) insulin syringe-needle U-100 [TRUEplus Insulin] 1 mL 30 gauge x 5/16 syringe See Rx Instructions .ROUTE .MEDSUPPLY Qty: 100 2RF Rx Instructions: As directed Orencia 125 mg/mL syringe 125 mg SUBCUT Q7D Qty: 4 3RF Rx Instructions: on wednesday Eliquis 5 mg tablet 5 mg PO BID Qty: 180 0RF quetiapine 200 mg tablet See Rx Instructions .ROUTE .COMPLEX Qty: 30 5RF Dose Instruction: TAKE ONE TABLET BY MOUTH DAILY Rx Instructions: TAKE ONE TABLET BY MOUTH DAILY (DME) Colostomy appliances and supplies See Rx Instructions .Route .MEDSUPPLY Qty: 100 0RF Rx Instructions: As directed methylprednisolone 4 mg tablets,dose pack See Rx Instructions .ROUTE .COMPLEX Qty: 21 0RF Rx Instructions: orally per package directions pantoprazole 40 mg tablet,delayed release (DR/EC) 40 mg PO BID diclofenac sodium 1 % gel 2 g topical QID PRN (Reason: Pain) Rx Instructions: apply to single elbow, wrist or hand; for hand includes palm/fingers/back of hand Anoro Ellipta 62.5-25 mcg/actuation blister with device 1 inh inhalation DAILY Discharge Orders: Discharge ED (Routine); Ordered 11/13/22 Ordered By: Vero Hernandez Referrals: Svitlana Bustamante DO [Primary Care Provider] - 11/16/22 Discharge Diet: Regular Discharge Activity: Resume usual activity Patient Instructions: Shingles (ED), Abdominal Pain (ED), Opioid Safety, Pain Management Activity Restrictions/Additional Instructions: Take prescribed pain medicine as needed If you develop a rash to the painful area,begin the Acyclovir 3x/day for 1 week Get rechecked for new or worsening symptoms Print Language: Yoruba Coding Level of Care Code ED Meal Grinder Tender for Vicente Tobin
[2022-11-13] MEDS: ondansetron 2 mg/ML SDV 2 mL 4 MG IVP (21:12)
[2022-11-13] MEDS: morphine 4 mg/mL SDV 1 mL IVP ×2 (21:14→22:20)
[2022-11-13] MEDS: ketorolac 30 mg/mL INJ IVP (21:17)
[2022-11-13 21:27] LABS: Basophils % 0.5 %; Eosinophils # 0.1 10^3/uL (0.0-0.8); Eosinophils % 1.3 %; Hematocrit 36.8 % (36-47); Lymphocytes # 2.2 10^3/uL (0.8-4.8); Lymphocytes % 35.9 %; Mean Corpuscular HGB Conc 34.5 g/dL (30-55); Mean Corpuscular Hemoglobin 32.1 pg (27-33); Mean Corpuscular Volume 92.9 fl (85-98); Mean Platelet Volume 9.8 fL (7.4-10.4); Monocytes # 0.4 10^3/uL (0.2-0.9); Monocytes % 6.3 %; Neutrophils # 3.34 10^3/uL (1.8-7.7); Neutrophils % 55.8 %; Nucleated Red Blood Cells % 0 %; Platelet Count 273 10^3/cmm (157-399); Red Blood Count 3.96 10^6/uL (3.85-5.65); Red Cell Distribution Width 12.9 % (12.1-15.1); White Blood Count 5.99 10^3/uL (3.29-11.43)
[2022-11-13 21:36] LABS: Bilirubin Urine Neg (Negative); Blood Urine Neg (Negative); Glucose Urine UA Norm (Normal); Ketones Urine Negative (Negative); Leukocyte Esterase Urine Negative (Negative); Nitrate Urine Negative (Negative); Protein Urine Neg (Negative); Specific Gravity, Urine 1.015 (1.005-1.030); Urine Appearance Clear (CLEAR); Urine Color Yellow (Yellow); Urobilinogen Urine Neg (Negative); pH Urine 5 (5-7)
[2022-11-13 21:43] LABS: Add Urine Culture? No; RBC Urine 0-4 /hpf (0-2); Squamous Epithelial Cell Urine RARE /hpf (0-5); WBC Urine RARE /hpf (0-5)
[2022-11-13 21:47] LABS: Albumin Level 4.2 g/dL (3.5-5.2); Alkaline Phosphatase 65 U/L (35-105); Blood Urea Nitrogen 10 mg/dL (6-20); Calcium 9.6 mg/dL (8.5-10.5); Carbon Dioxide 27 mmol/L (22-29); Chloride 103 mmol/L (98-107); Globulin 2.7 g/dL (1.3-4.6); Glomerular Filtration Rate 87.2 mL/min (90-130); Glucose 86 mg/dL (65-115); Lipase 23 U/L (13-60); Osmolality Calculated 286 mOsm/kg (285-295); Sodium 139 mmol/L (136-145); Total Bilirubin 0.4 mg/dL (0.15-1.2); Total Protein 6.9 g/dL (6.6-8.7)
[2022-11-13 21:48] LABS: Anion Gap 13.7 (5-19); Potassium 4.7 mmol/L (3.5-5.1)
[2022-11-13 21:49] LABS: Alanine Aminotransferase 13 U/L (0-33); Aspartate Amino Transferase 21 U/L (0-32)
[2022-11-13 22:36] VITALS: BP 111/60; PULSE 68; RESP 16; O2SAT 99
== END 2022-11-13 22:34 | disposition home or self-care (01) ==
PROVIDERS: Emergency Provider Nurse Practitioner Family; PCP Family Medicine
DX: R10.9 Unspecified abdominal pain (principal); Z79.01 Long term (current) use of anticoagulants; Z79.4 Long term (current) use of insulin; F17.210 Nicotine dependence, cigarettes, uncomplicated; N18.9 Chronic kidney disease, unspecified; Z85.048 Personal history of other malignant neoplasm of rectum, rectosigmoid junction, and anus; Z93.3 Colostomy status
CPT/HCPCS: 74176; 80053; 81001; 83690; 85025; 96374; 96375; 96376; 99285; J1885; J2270; J2405

== ENCOUNTER 2022-11-17 09:00 | Outpatient (CLI) | payer MEDICARE, MEDICAID, SELFPAY ==
--- NOTE | 2022-11-17 09:05 | MM_ITS ---
WS: [id number] BILATERAL 3D TOMOSYNTHESIS DIGITAL SCREENING MAMMOGRAPHY WITH CAD CLINICAL INFORMATION: Z00.00 - Encounter for general adult medical examination ... HISTORY: Screening mammogram. No current complaints. COMPARISON: 2020 TECHNIQUE: Bilateral CC and MLO views. FINDINGS: Scattered fibroglandular densities bilaterally. Ovoid asymmetric density anterior RIGHT breast best s een on the MLO view. Recommend spot compression views and ultrasound if persistent. LEFT breast is un remarkable. Punctate calcification RIGHT breast. IMPRESSION: MM/[place] [id number] BI-RADS: 0-Incomplete: Need additional imaging evaluation FOLLOW UP: Need Additional Imaging Recommend RIGHT breast diagnostic mammography and ultrasound if persistent.
== END 2022-11-17 09:01 | disposition home or self-care (01) ==
LOC: MOBLMAM 09:05
PROVIDERS: PCP Family Medicine; Visit Provider Family Medicine
DX: Z12.31 Encounter for screening mammogram for malignant neoplasm of breast (principal); Z00.00 Encounter for general adult medical examination without abnormal findings
CPT/HCPCS: 77063; 77067

== ENCOUNTER → 2022-12-03 08:40 | Outpatient (BNVA) | payer MEDICARE, MEDICAID, SELFPAY | PROVIDERS: PCP Family Medicine; Visit Provider Physician Assistant | DX: M47.816 Spondylosis without myelopathy or radiculopathy, lumbar region (principal); M47.818 Spondylosis without myelopathy or radiculopathy, sacral and sacrococcygeal region | CPT/HCPCS: 99213 ==

== ENCOUNTER 2022-12-07 07:41 | Outpatient (CLI) | payer MEDICARE, MEDICAID, SELFPAY ==
[2022-12-07 07:55] VITALS: BMI 28.0
--- NOTE | 2022-12-07 08:22 | ECG_ITS ---
[facility] Test Date: 2022-12-07 Pat Name: Mauar Hermosillo Department: Room: Gender: Female Congressional Assistant: Daphnie Mcgraw : 1970 Requested By: Svitlana Bustamante Order Number: [id number] Tres MD: Ruslan Cool M.D. Interpretive Statements NAME OF STUDY: LEXISCAN SESTAMIBI STRESS TEST INDICATION: [Atypical CP, ] Procedure: At the baseline, the blood pressure was 118/84 mmHg with a heart rate of 69 bpm. The electrocardiogram showed normal sinus rhythm, normal axis with normal ST and T's. The Lexiscan was infused over a period of 20 seconds. A total of 0.4 mg of Lexiscan was infused. The stress phase was continued for a total of 5 minutes. Heart rate was at the end of stress phase was 86 bpm and a blood pressure of 103/66 mmHg. The EKG at the peak infusion revealed normal sinus rhythm with no significant ST-T wave changes. Sestamibi was injected 20 seconds after the Lexiscan infusion. Blood pressure at the end of recovery phase was 116/66 mmHg with a heart rate of 82 bpm. Conclusion: 1. Normal EKG response to Lexiscan infusion 2. No Lexiscan induced chest pain or cardiac arrhythmia. 3. Normal blood pressure and heart rate response. 4. Sestamibi/sestamibi perfusion scan pending; see separate report. Electronically Signed On 12-15-2022 11:14:28 CDT by Ruslan Cool M.D. [id number]
--- NOTE | 2022-12-07 08:23 | NMCV_ITS ---
NM momo perf SPECT r/s* [id number] Maura Hermosillo Age: 52 Gender: F : 1970 Exam Date: 12/07/2022 08:23 Ordering Phys: Svitlana Bustamante DO Technologist: LORE Brandon Exam Location: [facility] Indications: CHEST PAIN STRESS TEST Please see separate stress test report in [facility] for full findings IMAGE PROTOCOL Rest/Stress 1 Lexiscan Day Radiopharmaceutical Dose (mCi) Administration Site Administered by Rest: Tc-99m 11.0 IV LORE Mclaughlin Sestamibi Stress:Tc-99m 32.7 IV LORE Mclaughlin Sestamibi Rest: 07-Dec-2022 60 Discovery 630 Stress: 07-Dec-2022 30 Discovery 630 0.4mg Lexiscan. Images obtained in supine and prone position. SPECT RESULTS Technical Quality: Excellent Raw Data Analysis: Normal Image Corrections: No attenuation or motion correction applied Summed Stress Score: 0 Summed Rest Score: 0 Summed Difference Score: 0 PERFUSION FINDINGS SPECT images demonstrate homogeneous tracer distribution throughout the myocardium. FUNCTIONAL RESULTS (calculated via Gated SPECT) Stress Image LV EF (%): 87 Stress EDV (mL):61 TID: 0.86 Stress ESV (mL):8 FUNCTIONAL FINDINGS: There is normal left ventricular systolic function. IMPRESSIONS 1. Normal myocardial perfusion imaging with no evidence of ischemia 2. LV systolic function is normal Ruslan Cool MD (Electronically Signed) Final Date: 07 December 2022 11:25 S
[2022-12-07] MEDS: regadenoson 0.4 Mg/5 ml Syringe IVP (09:57)
[2022-12-07 10:09] VITALS: BP 116/79; PULSE 82
== END 2022-12-07 07:42 | disposition home or self-care (01) ==
LOC: CDL 07:41
PROVIDERS: PCP Family Medicine; Visit Provider Family Medicine
DX: R07.89 Other chest pain (principal)
CPT/HCPCS: 36415; 78452; 93017; 96374; A9500; J2785

== ENCOUNTER 2022-12-17 12:48 | Outpatient (CLI) | payer MEDICARE, MEDICAID, SELFPAY ==
--- NOTE | 2022-12-17 13:21 | MM_ITS ---
WS: [id number] RIGHT 3D TOMOSYNTHESIS DIGITAL MAMMOGRAPHY WITH CAD CLINICAL INFORMATION: abnormal mammogram HISTORY: Additional views COMPARISON: 11/17/2022 TECHNIQUE: 3 views of the right breast were obtained. FINDINGS: Scattered fibroglandular densities of the right breast. Previously described ovoid density anterior R IGHT breast resolves on the spot compression views. No other suspicious abnormalities. Recommend retu rn to annual screening mammography. IMPRESSION: MM/[place] [id number] BI-RADS: 2-Benign FOLLOW UP: 1 Year Follow-up Recommend return to annual screening mammography.
== END 2022-12-17 12:49 | disposition home or self-care (01) ==
LOC: RAD 12:49
PROVIDERS: PCP Family Medicine; Visit Provider Family Medicine
DX: R92.8 Other abnormal and inconclusive findings on diagnostic imaging of breast (principal)
CPT/HCPCS: 77061; G0279

== ENCOUNTER → 2023-03-18 09:24 | Outpatient (BNVA) | payer MEDICARE, MEDICAID, SELFPAY | PROVIDERS: PCP Family Medicine; Referring Provider Physician Assistant; Visit Provider Anesthesiology Pain Medicine | DX: M48.062 Spinal stenosis, lumbar region with neurogenic claudication (principal); M54.17 Radiculopathy, lumbosacral region; F10.91 Alcohol use, unspecified, in remission; M51.37 Other intervertebral disc degeneration, lumbosacral region; M47.816 Spondylosis without myelopathy or radiculopathy, lumbar region; F15.21 Other stimulant dependence, in remission; F14.21 Cocaine dependence, in remission | CPT/HCPCS: 99204 ==

== ENCOUNTER → 2023-04-28 13:25 | Outpatient (BNVA) | payer MEDICARE, MEDICAID, SELFPAY | PROVIDERS: PCP Family Medicine; Visit Provider Anesthesiology Pain Medicine | DX: M54.16 Radiculopathy, lumbar region (principal); M48.062 Spinal stenosis, lumbar region with neurogenic claudication | CPT/HCPCS: 64483; 64484; J1100; J3490 ==

== ENCOUNTER → 2023-05-17 13:09 | Outpatient (BNVA) | payer MEDICARE, MEDICAID, SELFPAY | PROVIDERS: PCP Family Medicine; Visit Provider Anesthesiology Pain Medicine | DX: M54.16 Radiculopathy, lumbar region (principal); M48.062 Spinal stenosis, lumbar region with neurogenic claudication | CPT/HCPCS: 64483; 64484; J1100; J3490 ==

== ENCOUNTER 2023-05-30 17:29 | Emergency (ER) | payer MEDICARE, MEDICAID, SELFPAY ==
[2023-05-30 17:31] VITALS: BP 124/87; PULSE 92; TEMP 36.8; O2SAT 91; BMI 28.0
--- NOTE | 2023-05-30 17:48 | CTR_ITS ---
PROCEDURE INFORMATION: Exam: CT Chest With Contrast; Diagnostic Exam date and time: 05/30/2023 6:23 PM Age: 53 years old Clinical indication: Abdominal pain; Generalized; Chest pressure; Prior surgery; Surgery date: 6+ months; Surgery type: Hyster, colostomy, colon resection; Patient HX: Rectal cancer; Additional info: Hypoxia, abd pain TECHNIQUE: Imaging protocol: Diagnostic computed tomography of the chest with contrast. Radiation optimization: All CT scans at this facility use at least one of these dose optimization techniques: automated exposure control; mA and/or kV adjustment per patient size (includes targeted exams where dose is matched to clinical indication); or iterative reconstruction. Contrast material: OMNI 350; Contrast volume: 100 ml; Contrast route: INTRAVENOUS (IV); COMPARISON: CT angio chest PE protcl [id number] 09/30/2022 11:27 PM RADIATION DOSE METRICS: Total DLP (mGy-cm): 1118.24 FINDINGS: Lungs: Patchy consolidations and ground-glass opacities throughout the left upper lobe and to a lesser extent the left lower lobe. Findings can be seen the setting multifocal multi lobar pneumonia. There is a new 13 mm pulmonary nodule in the left upper lobe (series 4, image 30). Pleural spaces: Unremarkable. No pneumothorax. No pleural effusion. Heart: Unremarkable. No cardiomegaly. No pericardial effusion. Lymph nodes: Unremarkable. No enlarged lymph nodes. Vasculature: Unremarkable. No aortic aneurysm. Bones/joints: Unremarkable. No acute fracture. Soft tissues: Unremarkable. then CT Chest at 18-24 months. (Reference: Vish) References: Edwardoholeobardo H, et al. Guidelines for Management of Incidental Pulmonary Nodules Detected on CT Images: From the Fleischner Society 2017. Radiology. 2017;284(1):228-243. PROCEDURE INFORMATION: Exam: CT Abdomen And Pelvis With Contrast Exam date and time: 05/30/2023 6:23 PM Age: 53 years old Clinical indication: Abdominal pain; Generalized; Chest pressure; Prior surgery; Surgery date: 6+ months; Surgery type: Hyster, colostomy, colon resection; Patient HX: Rectal cancer; Additional info: Hypoxia, abd pain TECHNIQUE: Imaging protocol: Computed tomography of the abdomen and pelvis with contrast. Radiation optimization: All CT scans at this facility use at least one of these dose optimization techniques: automated exposure control; mA and/or kV adjustment per patient size (includes targeted exams where dose is matched to clinical indication); or iterative reconstruction. Contrast material: OMNI 350; Contrast volume: 100 ml; Contrast route: INTRAVENOUS (IV); COMPARISON: CT kidney stone [id number] 11/13/2022 9:30 PM RADIATION DOSE METRICS: Total DLP (mGy-cm): 1118.24 FINDINGS: Liver: Normal. No mass. Gallbladder and bile ducts: Normal. No calcified stones. No ductal dilation. Pancreas: Normal. No ductal dilation. Spleen: Normal. No splenomegaly. Adrenal glands: Normal. No mass. Kidneys and ureters: See Urinary bladder finding. Stomach and bowel: Unremarkable. No obstruction. No mucosal thickening. Appendix: No evidence of appendicitis. Intraperitoneal space: Unremarkable. No free air. No significant fluid collection. Vasculature: Unremarkable. No abdominal aortic aneurysm. Lymph nodes: Unremarkable. No enlarged lymph nodes. Urinary bladder: The bladder is markedly distended measuring to 22.4 x 10.8 x 16.6 cm in size. There is bilateral severe hydroureter and hydronephrosis. Findings are concerning for bladder outlet obstruction. Reproductive: Unremarkable as visualized. Bones/joints: Unremarkable. No acute fracture. Soft tissues: Unremarkable. CT/CT chest abdpel w/*[id number] IMPRESSION: 1. Patchy consolidations and ground-glass opacities throughout the left upper lobe and to a lesser extent the left lower lobe. Findings can be seen the setting multifocal multi lobar pneumonia. 2. There is a new 13 mm pulmonary nodule in the left upper lobe (series 4, image 30). For patients at low risk (minimal or absent history of smoking and of other known risk factors), recommend CT Chest at 3-6 months, then consider CT Chest at 18-24 months. For patients at high risk (history of smoking or of other known risk factors), recommend CT Chest at 3-6 months, IMPRESSION: The bladder is markedly distended measuring to 22.4 x 10.8 x 16.6 cm in size. There is bilateral severe hydroureter and hydronephrosis. Findings are concerning for bladder outlet obstruction. The patient may benefit from placement of a Quevedo catheter.
--- NOTE | 2023-05-30 17:57 | ED_ITS ---
HPI - Abdominal Pain 2 General: Chief Complaint: Abdominal Pain Stated Complaint: ABD PAIN Time Seen by Provider: 05/30/23 17:37 History of Present Illness: Patient presents to the ER by EMS with complaints of lower abdominal pain and hypoxia requiring oxygen. Patient states that her lower abdomen has been having pain since at least last night has been getting worse. Patient has a colostomy she says her output is regular. Patient is very restless and tearful at this time. Patient does not normally wear oxygen but she does have a history of COPD and EMS arrived at her house they said that her oxygen was in the 80s. Review of Systems 2 General: Reports: 10 or more systems reviewed and unremarkable except in HPI and below PFSH ED 2 PFSH: Medical History DDD (degenerative disc disease), lumbar Psychiatric care Psychiatric care Lumbar spondylosis Hydronephrosis of right kidney Rectal cancer Cancer free for 14 years. Lumbar radiculitis Peripheral neuropathy Obstructive sleep apnea Restless leg syndrome Chronic post-traumatic stress disorder Pulmonary embolism CKD (chronic kidney disease) Osteoarthritis of knees, bilateral Immunosuppression Psoriasis Psoriatic arthritis Surgical History History of resection of rectum H/O: hysterectomy Due to fibroids. H/O tubal ligation Colostomy in place Family History Other Cancer Social History Smoking and tobacco/nicotine status: current every day tobacco/nicotine user cigarettes Packs smoked per day: 3 Years cigarettes smoked: 41 [ Other cigarette details: Pt reports smoking at age 3] Alcohol intake: current Alcohol intake frequency: holidays/special occasions only Substance/Drug Use: never Lives independently: Yes Household members: none Marital status: Legally Current occupational status: disabled Do you think of yourself as: Straight/Heterosexual Current gender identity: Female Physical Exam 2 Const: COMMON NORMALS: no acute distress, average body habitus, patient oriented x3, no limitations, healthy appearing, alert and well nourished HENMT: COMMON NORMALS: normocephalic, atraumatic, hearing grossly normal bilaterally, external ears normal, Normal external nose present and moist oral mucous membranes HEAD & SCALP: normocephalic and atraumatic NOSE: Normal external nose present EXTERNAL EAR: Yes external ears normal Neck/C-Spine: COMMON NORMALS: no JVD Chest: COMMONS NORMALS: normal inspection of the chest and normal palpation of entire chest wall Resp: COMMON NORMALS: normal respiratory effort, No retractions, No use of accessory muscles and clear to auscultation bilaterally AUSCULTATION: clear to auscultation bilaterally Cardio: COMMON NORMALS: no JVD, regular rate, regular rhythm, S1 normal heart sound present, S2 normal heart sound present, No gallops present (Cardio), No clicks present (Cardio), No murmurs present (Cardio) and No rub (Cardio) R ATE: regular rate RHYTHM: regular rhythm HEART SOUNDS: S1 normal heart sound present and S2 normal heart sound present GI: COMMON NORMALS: Normal to inspection, nondistended, normoactive bowel sounds present, Soft to palpation, No hepatosplenomegaly present and no masses; negative for non-tender (Mildly tender to palpate bilateral lower quadrants) PALPATION: Yes Soft to palpation and Yes No hepatosplenomegaly present Neuro: COMMON NORMALS: patient oriented x3 SENSORIUM/ORIENTATION: Yes alert Course 2 Vital Signs: Vital signs: Vital Signs Temperature 98.2 F 05/30/23 17:31 Pulse Rate 92 05/30/23 21:19 Respiratory Rate 18 05/30/23 21:19 Blood Pressure 139/88 05/30/23 21:19 Pulse Oximetry 100 05/30/23 21:19 Oxygen Delivery Me thod Room Air 05/30/23 21:19 Oxygen Flow Rate 4 05/30/23 19:33 MDM - Abdominal Pain Medical Decision Making Quevedo placed and clamped off after 2600 mL and then later it was released and another 1200 mL came out for a total of 3800 mL. Lab work was obtained which revealed a white count of 19, BUN/creatinine of 43 and 1.9, lactic acid 2.4, AST and ALT of 86 and 48, CRP of 322 procalcitonin 47, CT of the abdomen chest and pelvis showed patchy multifocal multilobar pneumonia, and a markedly distended bladder measuring 22.4 x 10.8 x 16.6 cm and severe hydroureter and hydronephrosis concerning for bladder outlet obstruction. Patient was influenza and COVID-negative, urine drug screen negative, patient was given Zosyn, Toradol, Itmann for pain, patient be transferred to Dr. Raciel Gonzalez, ED. Differential Diagnosis Likely abdominal pain; Unlikely acute appendicitis, calculus of kidney, constipation, diverticulitis, endometriosis, gastroenteritis, pancreatitis or small bowel obstruction Medical Records I reviewed the patient's medical records. Lab Data I reviewed the patient's lab results. 05/30/23 18:00 05/30/23 18:00 Labs/Radiology: Radiology Impressions Chest/Abdomen/Pelvis CT 05/30/23 17:48 IMPRESSION: 1. Patchy consolidations and ground-glass opacities throughout the left upper lobe and to a lesser extent the left lower lobe. Findings can be seen the setting multifocal multi lobar pneumonia. 2. There is a new 13 mm pulmonary nodule in the left upper lobe (series 4, image 30). For patients at low risk (minimal or absent history of smoking and of other known risk factors), recommend CT Chest at 3-6 months, then consider CT Chest at 18-24 months. For patients at high risk (history of smoking or of other known risk factors), recommend CT Chest at 3-6 months, IMPRESSION: The bladder is markedly distended measuring to 22.4 x 10.8 x 16.6 cm in size. There is bilateral severe hydroureter and hydronephrosis. Findings are concerning for bladder outlet obstruction. The patient may benefit from placement of a Quevedo catheter. Laboratory Results WBC 19.84 10^3/uL (3.29-11.43) H 05/30/23 18:00 RBC 4.21 10^6/uL (3.85-5.65) 05/30/23 18:00 Hgb 13.30 g/dL (11.27-16.99) 05/30/23 18:00 Hct 38.7 % (36-47) 05/30/23 18:00 MCV 91.9 fl (85-98) 05/30/23 18:00 MCH 31.6 pg (27-33) 05/30/23 18:00 MCHC 34.4 g/dL (30-55) 05/30/23 18:00 RDW 13.7 % (12.1-15.1) 05/30/23 18:00 Plt Count 179 10^3/cmm (157-399) 05/30/23 18:00 MPV 9.2 fL (7.4-10.4) 05/30/23 18:00 Neut % (Auto) 89.8 % 05/30/23 18:00 Lymph % (Auto) 4.1 % 05/30/23 18:00 [place] % (Auto) 2.9 % 05/30/23 18:00 Eos % (Auto) 0.6 % 05/30/23 18:00 Baso % (Auto) 0.3 % 05/30/23 18:00 Neut # (Auto) 17.84 10^3/uL (1.8-7.7) H 05/30/23 18:00 Lymph # (Auto) 0.8 10^3/uL (0.8-4.8) 05/30/23 18:00 [place] # (Auto) 0.6 10^3/uL (0.2-0.9) 05/30/23 18:00 Eos # (Auto) 0.1 10^3/uL (0.0-0.8) 05/30/23 18:00 Baso # (Auto) 0.1 10^3/uL (0.0-0.1) 05/30/23 18:00 Nucleated RBC % (auto) 0 % 05/30/23 18:00 Nucleated RBCs # 0.0 /100WBC 05/30/23 18:00 PT 13.80 SECONDS (12.1-14.9) 05/30/23 18:00 INR 1.02 (0.8-1.2) 05/30/23 18:00 Sodium 136 mmol/L (136-145) 05/30/23 18:00 Potassium 4.9 mmol/L (3.5-5.1) 05/30/23 18:00 Chloride 96 mmol/L (98-107) L 05/30/23 18:00 Carbon Dioxide 25 mmol/L (22-29) 05/30/23 18:00 Anion Gap 19.9 (5-19) H 05/30/23 18:00 BUN 43 mg/dL (6-20) H 05/30/23 18:00 Creatinine 1.9 mg/dL (0.5-0.9) H 05/30/23 18:00 GFR Calculation 27.4 mL/min (90-130) L 05/30/23 18:00 Glucose 136 mg/dL (65-115) H 05/30/23 18:00 Calculated Osmolality 295 mOsm/kg (285-295) 05/30/23 18:00 Lactic Acid 2.4 mmol/L (0.5-2.2) H 05/30/23 20:09 Calcium 9.2 mg/dL (8.5-10.5) 05/30/23 18:00 Magnesium 2.2 mg/dL (1.7-2.3) 05/30/23 18:00 Total Bilirubin 1.1 mg/dL (0.15-1.2) 05/30/23 18:00 AST 86 U/L (0-32) H 05/30/23 18:00 ALT 48 U/L (0-33) H 05/30/23 18:00 Alkaline Phosphatase 88 U/L (35-105) 05/30/23 18:00 C-Reactive Protein 322.1 mg/L (0.0-4.9) H 05/30/23 18:00 Total Protein 7.5 g/dL (6.6-8.7) 05/30/23 18:00 Albumin 4.0 g/dL (3.5-5.2) 05/30/23 18:00 Globulin 3.5 g/dL (1.3-4.6) 05/30/23 18:00 Lipase 11 U/L (13-60) L 05/30/23 18:00 Procalcitonin 47.06 ng/mL (0-0.5) H 05/30/23 20:09 Urine Color Yellow (Yellow) 05/30/23 19:21 Urine Appearance Hazy (CLEAR) A 05/30/23 19:21 Urine pH 6 (5-7) 05/30/23 19:21 Ur Specific [place] 1.025 (1.005-1.030) 05/30/23 19:21 Urine Protein Neg (Negative) 05/30/23 19:21 Urine Glucose (UA) Norm (Normal) 05/30/23 19:21 Urine Ketones Negative (Negative) 05/30/23 19:21 Urine Blood 3+ (Negative) H 05/30/23 19:21 Urine Nitrate Negative (Negative) 05/30/23 19:21 Urine Bilirubin Neg (Negative) 05/30/23 19:21 Urine Urobilinogen Neg mg/dL (Negative) 05/30/23 19:21 Ur Leukocyte Esterase Negative (Negative) 05/30/23 19:21 Urine RBC 15-25 /hpf (0-2) H 05/30/23 19:21 Urine WBC 0-4 /hpf (0-5) H 05/30/23 19:21 Ur Squamous Epith Cells 0-4 /hpf (0-5) H 05/30/23 19:21 Amorphous Sediment Trace /hpf 05/30/23 19:21 Urine Bacteria 1+ /hpf (NONE) H 05/30/23 19:21 Hyaline Casts 5-10 /lpf H 05/30/23 19:21 Coarse Granular Casts 0-4 /lpf H 05/30/23 19:21 Urine Mucus Trace /hpf 05/30/23 19:21 Urine Opiates Screen Negative ng/mL (Negative) 05/30/23 19:21 Ur Barbiturates Screen Negative ng/mL (Negative) 05/30/23 19:21 Ur Phencyclidine Scrn Negative ng/mL (Negative) 05/30/23 19:21 Ur Amphetamines Screen Negative ng/mL (Negative) 05/30/23 19:21 U Benzodiazepines Scrn Negative ng/mL (Negative) 05/30/23 19:21 Urine Cocaine Screen Negative ng/mL (Negative) 05/30/23 19:21 U Marijuana (THC) Screen Negative ng/mL (Negative) 05/30/23 19:21 Influenza Type A Ag negative (Negative) 05/30/23 20:22 Influenza Type B Ag negative (Negative) 05/30/23 20:22 SARS-CoV-2 Ag (Rapid) negative (Negative) 05/30/23 20:22 All radiology interpretation(s) finalized by discharge Discharge Plan Discharge Patient Disposition: Xfer Short-Term Hosp Clinical Impression: Acute urinary retention, Acute kidney injury, Multifocal pneumonia Condition: Stable Prescriptions: No Action albuterol sulfate 90 mcg/actuation HFA aerosol inhaler 1 inh inhalation QID PRN (Reason: shortness of breath or wheezing) Qty: 8.5 5RF folic acid 1 mg tablet 1 mg PO DAILY Qty: 90 2RF buspirone 15 mg tablet 15 mg PO BID Qty: 60 5RF quetiapine 300 mg tablet 300 mg PO BEDTIME Qty: 30 5RF Rx Instructions: take with 200mg ropinirole 4 mg tablet 4 mg PO BEDTIME Qty: 30 5RF Rx Instructions: take two hours before bed gabapentin 600 mg tablet 600 mg PO BEDTIME Qty: 30 5RF paroxetine HCl [Paxil] 40 mg tablet 40 mg PO DAILY Qty: 30 4RF (DME) insulin syringe-needle U-100 [TRUEplus Insulin] 1 mL 30 gauge x 5/16 syringe See Rx Instructions .ROUTE .MEDSUPPLY Qty: 100 2RF Rx Instructions: As directed Eliquis 5 mg tablet 5 mg PO BID Qty: 180 0RF quetiapine 200 mg tablet See Rx Instructions .ROUTE .COMPLEX Qty: 30 5RF Dose Instruction: TAKE ONE TABLET BY MOUTH DAILY Rx Instructions: TAKE ONE TABLET BY MOUTH DAILY (DME) Colostomy appliances and supplies See Rx Instructions .Route .MEDSUPPLY Qty: 100 0RF Rx Instructions: As directed methotrexate sodium 25 mg/mL solution 25 mg SUBCUT Q7D Qty: 10 2RF Rx Instructions: on fridays Orencia 125 mg/mL syringe 125 mg SUBCUT Q7D Qty: 4 3RF Rx Instructions: on wednesday pantoprazole 40 mg tablet,delayed release (DR/EC) 40 mg PO BID Coding Level of Care Code ED Relief Operator for Vicente Tobin
[2023-05-30] MEDS: ketorolac 30 mg/mL INJ IVP (18:04)
[2023-05-30 18:07] LABS: Basophils # 0.1 10^3/uL (0.0-0.1); Basophils % 0.3 %; Eosinophils # 0.1 10^3/uL (0.0-0.8); Eosinophils % 0.6 %; Hematocrit 38.7 % (36-47); Lymphocytes # 0.8 10^3/uL (0.8-4.8); Lymphocytes % 4.1 %; Mean Corpuscular HGB Conc 34.4 g/dL (30-55); Mean Corpuscular Hemoglobin 31.6 pg (27-33); Mean Corpuscular Volume 91.9 fl (85-98); Mean Platelet Volume 9.2 fL (7.4-10.4); Monocytes # 0.6 10^3/uL (0.2-0.9); Monocytes % 2.9 %; Neutrophils # 17.84 10^3/uL (1.8-7.7); Neutrophils % 89.8 %; Nucleated Red Blood Cells % 0 %; Platelet Count 179 10^3/cmm (157-399); Red Blood Count 4.21 10^6/uL (3.85-5.65); Red Cell Distribution Width 13.7 % (12.1-15.1); White Blood Count 19.84 10^3/uL (3.29-11.43)
[2023-05-30 18:19] LABS: INR 1.02 (0.8-1.2)
[2023-05-30 18:24] LABS: Alanine Aminotransferase 48 U/L (0-33); Alkaline Phosphatase 88 U/L (35-105); Anion Gap 19.9 (5-19); Aspartate Amino Transferase 86 U/L (0-32); Blood Urea Nitrogen 43 mg/dL (6-20); C Reactive Protein 322.1 mg/L (0.0-4.9); Calcium 9.2 mg/dL (8.5-10.5); Carbon Dioxide 25 mmol/L (22-29); Chloride 96 mmol/L (98-107); Creatinine Clr Calc Pharmacy 39.1846; Globulin 3.5 g/dL (1.3-4.6); Glomerular Filtration Rate 27.4 mL/min (90-130); Glucose 136 mg/dL (65-115); Lipase 11 U/L (13-60); Magnesium 2.2 mg/dL (1.7-2.3); Osmolality Calculated 295 mOsm/kg (285-295); Potassium 4.9 mmol/L (3.5-5.1); Sodium 136 mmol/L (136-145); Total Bilirubin 1.1 mg/dL (0.15-1.2); Total Protein 7.5 g/dL (6.6-8.7)
[2023-05-30] MEDS: iohexol 350 mg/mL 500 mL Btl (per mL) IV (18:27)
[2023-05-30] MEDS: sodium chloride 0.9% 1,000 ML 999 ML IV (18:46)
[2023-05-30 19:33] VITALS: BP 117/86; PULSE 93; RESP 22; O2SAT 95
[2023-05-30 19:41] LABS: Amphetamines Screen Urine Negative (Negative); Barbiturates Screen Urine Negative (Negative); Benzodiazepines Screen Urine Negative (Negative); Cocaine Screen Urine Negative (Negative); Opiate Screen Urine Negative (Negative); PCP Screen Urine Negative (Negative); THC Screen Urine Negative (Negative)
[2023-05-30 19:43] LABS: Add Urine Microscopic? YES; Bilirubin Urine Neg (Negative); Blood Urine 3+ (Negative); Glucose Urine UA Norm (Normal); Ketones Urine Negative (Negative); Leukocyte Esterase Urine Negative (Negative); Nitrate Urine Negative (Negative); Protein Urine Neg (Negative); Specific Gravity, Urine 1.025 (1.005-1.030); Urine Appearance Hazy (CLEAR); Urine Color Yellow (Yellow); Urobilinogen Urine Neg (Negative); pH Urine 6 (5-7)
[2023-05-30 19:44] LABS: Add Urine Culture? Yes; Amorphous Sediment Urine TRACE /hpf; Bacteria Urine 1+ /hpf; Coarse Granular Casts Urine 0-4 /lpf; Mucus Urine TRACE /hpf; RBC Urine 15-25 /hpf (0-2); Squamous Epithelial Cell Urine 0-4 /hpf (0-5); WBC Urine 0-4 /hpf (0-5)
[2023-05-30] MEDS: piperacillin-tazobactam 3.375 GM in sodium chloride 0.9% (plus) 50 ML IV (20:19)
[2023-05-30 20:37] LABS: Lactic Sepsis W/Reflex 2.4 mmol/L (0.5-2.2)
[2023-05-30] MEDS: HYDROcodone-acetaminophen 5-325 mg Tablet 1 TAB PO (20:41)
[2023-05-30 20:44] LABS: Procalcitonin 47.06 ng/mL (0-0.5)
[2023-05-30 20:50] LABS: Influenza A by IFA negative (Negative); Influenza B by IFA negative (Negative); SARS Covid-2 Antigen negative (Negative)
[2023-05-30 21:19] VITALS: BP 139/88; PULSE 92; RESP 18; O2SAT 100
[2023-05-30 22:02] LABS: Reflex Lactate Order REFLEX LACTIC ORDERD
[2023-05-30 22:39] VITALS: BP 124/82; PULSE 98; RESP 20; O2SAT 99
[2023-05-30 22:54] LABS: Lactic Acid level (Lactate) 1.9 mmol/L (0.5-2.2)
[2023-05-30] MEDS: oxyCODONE-APAP 5-325 mg Tablet 2 TAB PO (23:02)
== END 2023-05-31 00:09 | disposition short-term general hospital (02) ==
PROVIDERS: Emergency Provider Emergency Medicine
DX: R33.9 Retention of urine, unspecified (principal); N17.9 Acute kidney failure, unspecified; J18.8 Other pneumonia, unspecified organism; Z79.01 Long term (current) use of anticoagulants; Z11.52 Encounter for screening for COVID-19; F17.210 Nicotine dependence, cigarettes, uncomplicated; Z85.048 Personal history of other malignant neoplasm of rectum, rectosigmoid junction, and anus; N18.9 Chronic kidney disease, unspecified
CPT/HCPCS: 36415; 51702; 71260; 74177; 80053; 80306; 81001; 83605; 83690; 83735; 84145; 85025; 85610; 86140; 87040; 87086; 87426; 87804; 96365; 96366; 96375; 99285; J1885; J2543; J7030; Q9967

== ENCOUNTER 2023-06-03 13:45 | Emergency (ER) | payer MEDICARE, MEDICAID, SELFPAY ==
[2023-06-03 14:14] VITALS: BP 115/74; PULSE 95; RESP 16; TEMP 36.7; O2SAT 95; BMI 28.0
[2023-06-03 14:17] VITALS: BP 150/93; PULSE 73; O2SAT 94
--- NOTE | 2023-06-03 14:34 | ED_ITS ---
HPI - Female Genitourinary 2 General: Chief complaint: Urogenital-Female Stated complaint: cath problems Time Seen by Provider: 06/03/23 14:21 Source: patient Mode of arrival: ambulatory History of Present Illness: 53-year-old female who presents to the e mergency room with complaints of irritation from the catheter. Patient was seen on 05/30/2023 and transferred to [facility] for a bladder outlet obstruction. Patient has a colostomy due to rectal resection. She was discharged home from [facility] with the catheter in place. She is uncomfortable and is asking to have it removed. She was uncertain as to why the catheter was left in place. She has a follow-up appointment on June 10 with urology. She denies any fever sweats chills or flank pain. Reviewing the previous ER record it appears she had a bladder outlet obstruction has a very enlarged bladder and an acute kidney injury and was transferred to [facility] for urology. MD elicited complaint: dysuria Onset (ago): hour(s) Associated symptoms: Deny abdominal pain Review of Systems 2 Const: Denies: fever(s) or chills Card: Denies: chest pain Resp: Denies: dyspnea GI: Denies: abdominal pain : Denies: dysuria, urinary frequency or urinary urgency Musc: Denies: neck pain or back pain Skin/Breast: Denies: rash PFSH ED 2 PFSH: Medical History DDD (degenerative disc disease), lumbar Psychiatric care Psychiatric care Lumbar spondylosis Hydronephrosis of right kidney Rectal cancer Cancer free for 14 years. Lumbar radiculitis Peripheral neuropathy Obstructive sleep apnea Restless leg syndrome Chronic post-traumatic stress disorder Pulmonary embolism CKD (chronic kidney disease) Osteoarthritis of knees, bilateral Immunosuppression Psoriasis Psoriatic arthritis Surgical History History of resection of rectum H/O: hysterectomy Due to fibroids. H/O tubal ligation Colostomy in place Family History Other Cancer Social History Smoking and tobacco/nicotine status: current every day tobacco/nicotine user cigarettes Packs smoked per day: 3 Years cigarettes smoked: 41 [ Other cigarette details: Pt reports smoking at age 3] Alcohol intake: current Alcohol intake frequency: holidays/special occasions only Substance/Drug Use: never Lives independently: Yes Household members: none Marital status: Legally Current occupational status: disabled Do you think of yourself as: Straight/Heterosexual Current gender identity: Female Physical Exam 2 Const: COMMON NORMALS: no acute distress GENERAL APPEARANCE: cooperative and comfortable ORIENTATION/CONSCIOUSNESS: Yes awake, Yes oriented to person, Yes oriented to place and Yes oriented to time HENMT: COMMON NORMALS: normocephalic, atraumatic and hearing grossly normal bilaterally HEAD & SCALP: normocephalic and atraumatic Resp: COMMON NORMALS: normal respiratory effort, No retractions, No use of accessory muscles and clear to auscultation bilaterally AUSCULTATION: clear to auscultation bilaterally Cardio: COMMON NORMALS: regular rate, regular rhythm and No murmurs present (Cardio) RATE: regular rate RHYTHM: regular rhythm GI: COMMON NORMALS: Soft to palpation and No hepatosplenomegaly present A USCULTATION: Yes normoactive bowel sounds PALPATION: Yes Soft to palpation, No Tenderness to palpation present (GI), No Guarding due to palpation present (GI) and Yes No hepatosplenomegaly present Extremity: COMMON NORMALS: normal to inspection, capillary refill normal, no clubbing, cyanosis or edema, no calf tenderness and no pedal edema Neuro: SENSORIUM/ORIENTATION: Yes oriented to person, Yes oriented to place and Yes oriented to time Skin: COMMON NORMALS: no rashes or lesions noted GENERAL SKIN EXAM: no rashes or lesions noted Course 2 Vital Signs: Vital signs: Vital Signs Temperature 98.1 F 06/03/23 14:14 Pulse Rate 84 06/03/23 15:31 Respiratory Rate 16 06/03/23 14:14 Blood Pressure 130/80 06/03/23 15:31 Pulse Oximetry 92 06/03/23 15:31 Oxygen Delivery Me thod Room Air 06/03/23 15:00 MDM - Female Medical Decision Making Old records reviewed from [facility]. The Quevedo was left in place because of a bladder outlet obstruction. She had an acute kidney injury at the time. Her renal function has normalized now. Suspect she may be having some bladder spasm. Additionally she has a regular Quevedo bag in place. Will replace it with a leg bag. Will also give her Pyridium to use as needed to see if that helps cut down on the discomfort recommend she follow-up with urology as previously scheduled. Medical Records I reviewed the patient's medical records. Lab Data I reviewed the patient's lab results. 06/03/23 14:35 06/03/23 14:35 Laboratory Results WBC 7.01 10^3/uL (3.29-11.43) 06/03/23 14:35 RBC 4.22 10^6/uL (3.85-5.65) 06/03/23 14:35 Hgb 13.10 g/dL (11.27-16.99) 06/03/23 14:35 Hct 37.7 % (36-47) 06/03/23 14:35 MCV 89.3 fl (85-98) 06/03/23 14:35 MCH 31.0 pg (27-33) 06/03/23 14:35 MCHC 34.7 g/dL (30-55) 06/03/23 14:35 RDW 12.7 % (12.1-15.1) 06/03/23 14:35 Plt Count 251 10^3/cmm (157-399) 06/03/23 14:35 MPV 9.1 fL (7.4-10.4) 06/03/23 14:35 Neut % (Auto) 63.1 % 06/03/23 14:35 Lymph % (Auto) 21.8 % 06/03/23 14:35 [place] % (Auto) 8.0 % 06/03/23 14:35 Eos % (Auto) 2.9 % 06/03/23 14:35 Baso % (Auto) 0.9 % 06/03/23 14:35 Neut # (Auto) 4.43 10^3/uL (1.8-7.7) 06/03/23 14:35 Lymph # (Auto) 1.5 10^3/uL (0.8-4.8) 06/03/23 14:35 [place] # (Auto) 0.6 10^3/uL (0.2-0.9) 06/03/23 14:35 Eos # (Auto) 0.2 10^3/uL (0.0-0.8) 06/03/23 14:35 Baso # (Auto) 0.1 10^3/uL (0.0-0.1) 06/03/23 14:35 Nucleated RBC % (auto) 0 % 06/03/23 14:35 Nucleated RBCs # 0.0 /100WBC 06/03/23 14:35 Sodium 138 mmol/L (136-145) 06/03/23 14:35 Potassium 3.7 mmol/L (3.5-5.1) 06/03/23 14:35 Chloride 101 mmol/L (98-107) 06/03/23 14:35 Carbon Dioxide 20 mmol/L (22-29) L 06/03/23 14:35 Anion Gap 20.7 (5-19) H 06/03/23 14:35 BUN 15 mg/dL (6-20) 06/03/23 14:35 Creatinine 0.8 mg/dL (0.5-0.9) 06/03/23 14:35 GFR Calculation 74.5 mL/min (90-130) L 06/03/23 14:35 Glucose 143 mg/dL (65-115) H 06/03/23 14:35 Calculated Osmolality 289 mOsm/kg (285-295) 06/03/23 14:35 Calcium 9.4 mg/dL (8.5-10.5) 06/03/23 14:35 Total Bilirubin 0.7 mg/dL (0.15-1.2) 06/03/23 14:35 AST 19 U/L (0-32) 06/03/23 14:35 ALT 23 U/L (0-33) 06/03/23 14:35 Alkaline Phosphatase 108 U/L (35-105) H 06/03/23 14:35 Total Protein 8.0 g/dL (6.6-8.7) 06/03/23 14:35 Albumin 3.9 g/dL (3.5-5.2) 06/03/23 14:35 Globulin 4.1 g/dL (1.3-4.6) 06/03/23 14:35 Urine Color Dark yellow (Yellow) 06/03/23 14:43 Urine Appearance Sl hazy (CLEAR) A 06/03/23 14:43 Urine pH 5 (5-7) 06/03/23 14:43 Ur Specific [place] 1.025 (1.005-1.030) 06/03/23 14:43 Urine Protein 3+ (Negative) H 06/03/23 14:43 Urine Glucose (UA) Norm (Normal) 06/03/23 14:43 Urine Ketones 1+ (Negative) H 06/03/23 14:43 Urine Blood 2+ (Negative) H 06/03/23 14:43 Urine Nitrate Negative (Negative) 06/03/23 14:43 Urine Bilirubin 1+ (Negative) H 06/03/23 14:43 Urine Urobilinogen Norm mg/dL (Negative) 06/03/23 14:43 Ur Leukocyte Esterase Trace (Negative) H 06/03/23 14:43 Urine RBC 5-10 /hpf (0-2) H 06/03/23 14:43 Urine WBC 0-4 /hpf (0-5) H 06/03/23 14:43 Ur Squamous Epith Cells 0-4 /hpf (0-5) H 06/03/23 14:43 Ur Transition Epith Cell 0-4 /hpf 06/03/23 14:43 Amorphous Sediment Not Reportable 06/03/23 14:43 Urine Bacteria 1+ /hpf (NONE) H 06/03/23 14:43 Hyaline Casts 0-4 /lpf H 06/03/23 14:43 Urine Mucus 2+ /hpf 06/03/23 14:43 No radiology studies performed this visit Discharge Plan Discharge Patient Disposition: Home Clinical Impression: Bladder outlet obstruction Condition: Stable Prescriptions: New Pyridium 200 mg tablet 200 mg PO TID PRN (Reason: pain) Qty: 20 0RF No Action albuterol sulfate 90 mcg/actuation HFA aerosol inhaler 1 inh inhalation QID PRN (Reason: shortness of breath or wheezing) Qty: 8.5 5RF folic acid 1 mg tablet 1 mg PO DAILY Qty: 90 2RF buspirone 15 mg tablet 15 mg PO BID Qty: 60 5RF quetiapine 300 mg tablet 300 mg PO BEDTIME Qty: 30 5RF Rx Instructions: take with 200mg ropinirole 4 mg tablet 4 mg PO BEDTIME Qty: 30 5RF Rx Instructions: take two hours before bed gabapentin 600 mg tablet 600 mg PO BEDTIME Qty: 30 5RF paroxetine HCl [Paxil] 40 mg tablet 40 mg PO DAILY Qty: 30 4RF (DME) insulin syringe-needle U-100 [TRUEplus Insulin] 1 mL 30 gauge x 5/16 syringe See Rx Instructions .ROUTE .MEDSUPPLY Qty: 100 2RF Rx Instructions: As directed Eliquis 5 mg tablet 5 mg PO BID Qty: 180 0RF quetiapine 200 mg tablet See Rx Instructions .ROUTE .COMPLEX Qty: 30 5RF Dose Instruction: TAKE ONE TABLET BY MOUTH DAILY Rx Instructions: TAKE ONE TABLET BY MOUTH DAILY (DME) Colostomy appliances and supplies See Rx Instructions .Route .MEDSUPPLY Qty: 100 0RF Rx Instructions: As directed methotrexate sodium 25 mg/mL solution 25 mg SUBCUT Q7D Qty: 10 2RF Rx Instructions: on fridays Orencia 125 mg/mL syringe See Rx Instructions .ROUTE .COMPLEX Qty: 4 1RF Dose Instruction: inject 125mg SUBCUTANEOUSLY ONCE a week Rx Instructions: inject 125mg SUBCUTANEOUSLY ONCE a week pantoprazole 40 mg tablet,delayed release (DR/EC) 40 mg PO BID Discharge Orders: Discharge ED (Routine); Ordered 06/03/23 Ordered By: Marv Aguilar Patient Instructions: Opioid Safety, Pain Management Activity Restrictions/Additional Instructions: Thank you for choosing [facility] for your healthcare needs today. Please realize this is an emergency room and that we are providing you with a medical screening exam and this may not be complete and all inclusive of all the testing and or work up that you may need to determine your ailment or severity of your illness. It is very important that you follow up as instructed or that you return to the Emergency Department should you have concerns or if your condition changes or worsens in any way. Reviewed your records from [facility]. Recommend you leave the Quevedo in place until you see the urologist. You had a bladder outlet obstruction at the time recommend that you keep this in place until you see urology. Coding Level of Care Code ED Software Developer Consultant for Vicente Tobin
[2023-06-03 14:42] LABS: Basophils # 0.1 10^3/uL (0.0-0.1); Basophils % 0.9 %; Eosinophils # 0.2 10^3/uL (0.0-0.8); Eosinophils % 2.9 %; Hematocrit 37.7 % (36-47); Lymphocytes # 1.5 10^3/uL (0.8-4.8); Lymphocytes % 21.8 %; Mean Corpuscular HGB Conc 34.7 g/dL (30-55); Mean Corpuscular Volume 89.3 fl (85-98); Mean Platelet Volume 9.1 fL (7.4-10.4); Monocytes # 0.6 10^3/uL (0.2-0.9); Neutrophils # 4.43 10^3/uL (1.8-7.7); Neutrophils % 63.1 %; Nucleated Red Blood Cells % 0 %; Platelet Count 251 10^3/cmm (157-399); Red Blood Count 4.22 10^6/uL (3.85-5.65); Red Cell Distribution Width 12.7 % (12.1-15.1); White Blood Count 7.01 10^3/uL (3.29-11.43)
[2023-06-03 15:00] VITALS: BP 110/67; O2SAT 94
[2023-06-03 15:03] LABS: Bilirubin Urine 1+ (Negative); Blood Urine 2+ (Negative); Glucose Urine UA Norm (Normal); Ketones Urine 1+ (Negative); Nitrate Urine Negative (Negative); Protein Urine 3+ (Negative); Specific Gravity, Urine 1.025 (1.005-1.030); Urine Appearance SL Hazy (CLEAR); Urine Color Dark Yellow (Yellow); Urobilinogen Urine Norm (Negative); pH Urine 5 (5-7)
[2023-06-03 15:04] LABS: Add Urine Microscopic? YES; Leukocyte Esterase Urine Trace (Negative)
[2023-06-03 15:05] LABS: Alanine Aminotransferase 23 U/L (0-33); Albumin Level 3.9 g/dL (3.5-5.2); Alkaline Phosphatase 108 U/L (35-105); Anion Gap 20.7 (5-19); Aspartate Amino Transferase 19 U/L (0-32); Blood Urea Nitrogen 15 mg/dL (6-20); Calcium 9.4 mg/dL (8.5-10.5); Carbon Dioxide 20 mmol/L (22-29); Chloride 101 mmol/L (98-107); Creatinine Clr Calc Pharmacy 93.0635; Globulin 4.1 g/dL (1.3-4.6); Glomerular Filtration Rate 74.5 mL/min (90-130); Glucose 143 mg/dL (65-115); Osmolality Calculated 289 mOsm/kg (285-295); Potassium 3.7 mmol/L (3.5-5.1); Sodium 138 mmol/L (136-145); Total Bilirubin 0.7 mg/dL (0.15-1.2)
[2023-06-03 15:08] LABS: Bacteria Urine 1+ /hpf; Mucus Urine 2+ /hpf; Squamous Epithelial Cell Urine 0-4 /hpf (0-5); Transitional Epi Cells Urine 0-4 /hpf; WBC Urine 0-4 /hpf (0-5)
[2023-06-03 15:09] LABS: Add Urine Culture? No; Hyaline Casts Urine 0-4 /lpf
[2023-06-03 15:31] VITALS: BP 130/80; PULSE 84; O2SAT 92
== END 2023-06-03 15:33 | disposition home or self-care (01) ==
PROVIDERS: Emergency Provider Family Medicine
DX: N32.0 Bladder-neck obstruction (principal); Z79.01 Long term (current) use of anticoagulants; F17.210 Nicotine dependence, cigarettes, uncomplicated; Z85.048 Personal history of other malignant neoplasm of rectum, rectosigmoid junction, and anus; N18.9 Chronic kidney disease, unspecified; Z93.3 Colostomy status
CPT/HCPCS: 36415; 80053; 81001; 85025; 99283

== ENCOUNTER 2023-06-08 00:25 | Emergency (ER) | payer MEDICARE, MEDICAID, SELFPAY ==
[2023-06-08 00:27] VITALS: BP 118/90; PULSE 104; RESP 20; TEMP 36.7; O2SAT 93; BMI 28.8
--- NOTE | 2023-06-08 00:32 | ED_ITS ---
HPI - Abdominal Pain 2 General: Chief Complaint: Urogenital-Female Stated Complaint: ABD PAIN Time Seen by Provider: 06/08/23 00:31 History of Present Illness: 53-year-old female presents emergency de partment via EMS personnel with complaints of catheter issues. The patient has been recently seen in the emergency department and also at [facility] and had a urinary catheter placed. She states she accidentally tripped on her urinary catheter causing her to have significant pain. The patient does appear to be very hyper reactive and hyper motile upon arrival. EMS personnel state they did provide her 75 mcg of fentanyl as well as 4 mg of Zofran prior to arrival here in the emergency department. Patient states she has noted blood in her urinary catheter and drainage bag since placement of her catheter. She does complain of 3 out of 10 lower abdominal pain that she states is a dull cramping type pain. PFSH ED 2 PFSH: Medical History DDD (degenerative disc disease), lumbar Psychiatric care Psychiatric care Lumbar spondylosis Hydronephrosis of right kidney Rectal cancer Cancer free for 14 years. Lumbar radiculitis Peripheral neuropathy Obstructive sleep apnea Restless leg syndrome Chronic post-traumatic stress disorder Pulmonary embolism CKD (chronic kidney disease) Osteoarthritis of knees, bilateral Immunosuppression Psoriasis Psoriatic arthritis Surgical History History of resection of rectum H/O: hysterectomy Due to fibroids. H/O tubal ligation Colostomy in place Family History Other Cancer Social History Smoking and tobacco/nicotine status: current every day tobacco/nicotine user cigarettes Packs smoked per day: 0.5 Years cigarettes smoked: 41 [ Other cigarette details: Pt reports smoking at age 3] Alcohol intake: current Alcohol intake frequency: holidays/special occasions only Substance/Drug Use: never Lives independently: Yes Household members: none Marital status: Legally Current occupational status: disabled Do you think of yourself as: Straight/Heterosexual Current gender identity: Female Course 2 Vital Signs: Vital signs: Vital Signs Temperature 98.1 F 06/08/23 00:27 Pulse Rate 91 06/08/23 05:10 Respiratory Rate 16 06/08/23 05:10 Blood Pressure 118/90 06/08/23 05:10 Pulse Oximetry 99 06/08/23 05:10 Oxygen Delivery Me thod Room Air 06/08/23 03:30 MDM - Abdominal Pain Lab Data I reviewed the patient's lab results. 06/08/23 00:31 06/08/23 00:31 Labs/Radiology: Radiology Impressions Abdomen/Pelvis CT 06/08/23 02:21 IMPRESSION: 1. Mild bladder wall thickening. 2. Unremarkable kidneys. Laboratory Results WBC 10.10 10^3/uL (3.29-11.43) 06/08/23 00:31 RBC 4.24 10^6/uL (3.85-5.65) 06/08/23 00:31 Hgb 13.20 g/dL (11.27-16.99) 06/08/23 00:31 Hct 37.2 % (36-47) 06/08/23 00:31 MCV 87.7 fl (85-98) 06/08/23 00:31 MCH 31.1 pg (27-33) 06/08/23 00:31 MCHC 35.5 g/dL (30-55) 06/08/23 00:31 RDW 12.5 % (12.1-15.1) 06/08/23 00:31 Plt Count 409 10^3/cmm (157-399) H 06/08/23 00:31 MPV 8.8 fL (7.4-10.4) 06/08/23 00:31 Neut % (Auto) 70.7 % 06/08/23 00:31 Lymph % (Auto) 20.0 % 06/08/23 00:31 Walsh % (Auto) 5.7 % 06/08/23 00:31 Eos % (Auto) 1.0 % 06/08/23 00:31 Baso % (Auto) 1.2 % 06/08/23 00:31 Neut # (Auto) 7.14 10^3/uL (1.8-7.7) 06/08/23 00:31 Lymph # (Auto) 2.0 10^3/uL (0.8-4.8) 06/08/23 00:31 Walsh # (Auto) 0.6 10^3/uL (0.2-0.9) 06/08/23 00:31 Eos # (Auto) 0.1 10^3/uL (0.0-0.8) 06/08/23 00:31 Baso # (Auto) 0.1 10^3/uL (0.0-0.1) 06/08/23 00:31 Nucleated RBC % (auto) 0 % 06/08/23 00: Nucleated RBCs # 0.0 /100WBC 06/08/23 00:31 Sodium 135 mmol/L (136-145) L 06/08/23 00:31 Potassium 3.8 mmol/L (3.5-5.1) 06/08/23 00:31 Chloride 100 mmol/L (98-107) 06/08/23 00:31 Carbon Dioxide 16 mmol/L (22-29) L 06/08/23 00:31 Anion Gap 22.8 (5-19) H 06/08/23 00:31 BUN 17 mg/dL (6-20) 06/08/23 00:31 Creatinine 1.3 mg/dL (0.5-0.9) H 06/08/23 00:31 GFR Calculation 42.5 mL/min (90-130) L 06/08/23 00:31 Glucose 98 mg/dL (65-115) 06/08/23 00:31 Calculated Osmolality 282 mOsm/kg (285-295) L 06/08/23 00:31 Calcium 9.5 mg/dL (8.5-10.5) 06/08/23 00:31 Total Bilirubin 0.9 mg/dL (0.15-1.2) 06/08/23 00:31 AST 18 U/L (0-32) 06/08/23 00:31 ALT 15 U/L (0-33) 06/08/23 00:31 Alkaline Phosphatase 83 U/L (35-105) 06/08/23 00:31 Total Protein 7.7 g/dL (6.6-8.7) 06/08/23 00:31 Albumin 4.1 g/dL (3.5-5.2) 06/08/23 00:31 Globulin 3.6 g/dL (1.3-4.6) 06/08/23 00: Lipase 19 U/L (13-60) 06/08/23 00:31 HCG, Qual Negative (Negative) 06/08/23 01:12 Urine Color Red (Yellow) A 06/08/23 01:19 Urine Appearance Cloudy (CLEAR) A 06/08/23 01:19 Urine pH 5 (5-7) 06/08/23 01:19 Ur Specific [place] 1.025 (1.005-1.030) 06/08/23 01:19 Urine Protein 3+ (Negative) H 06/08/23 01:19 Urine Glucose (UA) Norm (Normal) 06/08/23 01:19 Urine Ketones 1+ (Negative) H 06/08/23 01:19 Urine Blood 3+ (Negative) H 06/08/23 01:19 Urine Nitrate Negative (Negative) 06/08/23 01:19 Urine Bilirubin Neg (Negative) 06/08/23 01:19 Urine Urobilinogen Neg mg/dL (Negative) 06/08/23 01:19 Ur Leukocyte Esterase Trace (Negative) H 06/08/23 01:19 Urine RBC 80-100 /hpf (0-2) H 06/08/23 01:19 Urine WBC 10-15 /hpf (0-5) H 06/08/23 01:19 Ur Squamous Epith Cells None /hpf (0-5) 06/08/23 01:19 Amorphous Sediment 1+ /hpf 06/08/23 01:19 Urine Bacteria 1+ /hpf (NONE) H 06/08/23 01:19 Urine Mucus 2+ /hpf 06/08/23 01:19 Urine Opiates Screen Negative ng/mL (Negative) 06/08/23 01:19 Ur Barbiturates Screen Negative ng/mL (Negative) 06/08/23 01:19 Ur Phencyclidine Scrn Negative ng/mL (Negative) 06/08/23 01:19 Ur Amphetamines Screen Positive ng/mL (Negative) H 06/08/23 01:19 U Benzodiazepines Scrn Negative ng/mL (Negative) 06/08/23 01:19 Urine Cocaine Screen Negative ng/mL (Negative) 06/08/23 01:19 U Marijuana (THC) Screen Negative ng/mL (Negative) 06/08/23 01:19 Discharge Plan Discharge Patient Disposition: Home Clinical Impression: Hematuria, Abdominal pain Condition: Stable Prescriptions: No Action albuterol sulfate 90 mcg/actuation HFA aerosol inhaler 1 inh inhalation QID PRN (Reason: shortness of breath or wheezing) Qty: 8.5 5RF Trelegy Ellipta 100-62.5-25 mcg blister with device 1 inh inhalation DAILY Qty: 60 3RF folic acid 1 mg tablet 1 mg PO DAILY Qty: 90 2RF buspirone 15 mg tablet 15 mg PO BID Qty: 60 5RF quetiapine 300 mg tablet 300 mg PO BEDTIME Qty: 30 5RF Rx Instructions: take with 200mg ropinirole 4 mg tablet 4 mg PO BEDTIME Qty: 30 5RF Rx Instructions: take two hours before bed gabapentin 600 mg tablet 600 mg PO BEDTIME Qty: 30 5RF paroxetine HCl [Paxil] 40 mg tablet 40 mg PO DAILY Qty: 30 4RF (DME) insulin syringe-needle U-100 [TRUEplus Insulin] 1 mL 30 gauge x 5/16 syringe See Rx Instructions .ROUTE .MEDSUPPLY Qty: 100 2RF Rx Instructions: As directed Eliquis 5 mg tablet 5 mg PO BID Qty: 180 0RF quetiapine 200 mg tablet See Rx Instructions .ROUTE .COMPLEX Qty: 30 5RF Dose Instruction: TAKE ONE TABLET BY MOUTH DAILY Rx Instructions: TAKE ONE TABLET BY MOUTH DAILY (DME) Colostomy appliances and supplies See Rx Instructions .Route .MEDSUPPLY Qty: 100 0RF Rx Instructions: As directed methotrexate sodium 25 mg/mL solution 25 mg SUBCUT Q7D Qty: 10 2RF Rx Instructions: on fridays Orencia 125 mg/mL syringe See Rx Instructions .ROUTE .COMPLEX Qty: 4 1RF Dose Instruction: inject 125mg SUBCUTANEOUSLY ONCE a week Rx Instructions: inject 125mg SUBCUTANEOUSLY ONCE a week pantoprazole 40 mg tablet,delayed release (DR/EC) 40 mg PO BID Pyridium 200 mg tablet 200 mg PO TID PRN (Reason: pain) Qty: 20 0RF Discharge Orders: Discharge ED (Routine); Ordered 06/08/23 Ordered By: Musa Wagner Discharge Diet: Usual diet Discharge Activity: Resume usual activity Patient Instructions: Abdominal Pain (ED), Opioid Safety, Pain Management Activity Restrictions/Additional Instructions: Activity Restrictions/Additional Instructions: Thank you for choosing [facility] for your healthcare needs today. Please realize that you were seen in the Emergency Department and that we are providing you with an emergency medical screening exam and this may not be a complete and all inclusive of all the testing and or medical work-up that you may need to determine your ailment or severity of your illness. It is very important that you follow-up as instructed with your Primary care provider or Specialist for additional evaluation and to discuss your medical treatment plan. Coding Level of Care Code ED Personal Service Workers for Vicente Tobin
[2023-06-08 00:38] LABS: Basophils # 0.1 10^3/uL (0.0-0.1); Basophils % 1.2 %; Eosinophils # 0.1 10^3/uL (0.0-0.8); Hematocrit 37.2 % (36-47); Mean Corpuscular HGB Conc 35.5 g/dL (30-55); Mean Corpuscular Hemoglobin 31.1 pg (27-33); Mean Corpuscular Volume 87.7 fl (85-98); Mean Platelet Volume 8.8 fL (7.4-10.4); Monocytes # 0.6 10^3/uL (0.2-0.9); Monocytes % 5.7 %; Neutrophils # 7.14 10^3/uL (1.8-7.7); Neutrophils % 70.7 %; Nucleated Red Blood Cells % 0 %; Platelet Count 409 10^3/cmm (157-399); Red Blood Count 4.24 10^6/uL (3.85-5.65); Red Cell Distribution Width 12.5 % (12.1-15.1)
[2023-06-08 00:58] LABS: Alanine Aminotransferase 15 U/L (0-33); Albumin Level 4.1 g/dL (3.5-5.2); Alkaline Phosphatase 83 U/L (35-105); Anion Gap 22.8 (5-19); Aspartate Amino Transferase 18 U/L (0-32); Blood Urea Nitrogen 17 mg/dL (6-20); Calcium 9.5 mg/dL (8.5-10.5); Carbon Dioxide 16 mmol/L (22-29); Chloride 100 mmol/L (98-107); Creatinine Clr Calc Pharmacy 56.2046; Globulin 3.6 g/dL (1.3-4.6); Glomerular Filtration Rate 42.5 mL/min (90-130); Glucose 98 mg/dL (65-115); Lipase 19 U/L (13-60); Osmolality Calculated 282 mOsm/kg (285-295); Potassium 3.8 mmol/L (3.5-5.1); Sodium 135 mmol/L (136-145); Total Bilirubin 0.9 mg/dL (0.15-1.2); Total Protein 7.7 g/dL (6.6-8.7)
[2023-06-08 01:29] LABS: HCG Qualitative Urine. Negative (Negative)
[2023-06-08 01:38] LABS: Add Urine Microscopic? YES; Bilirubin Urine Neg (Negative); Blood Urine 3+ (Negative); Glucose Urine UA Norm (Normal); Ketones Urine 1+ (Negative); Leukocyte Esterase Urine Trace (Negative); Nitrate Urine Negative (Negative); Protein Urine 3+ (Negative); RBC Urine 80-100 /hpf (0-2); Specific Gravity, Urine 1.025 (1.005-1.030); Urine Appearance Cloudy (CLEAR); Urine Color Red (Yellow); Urobilinogen Urine Neg (Negative); pH Urine 5 (5-7)
[2023-06-08 01:39] LABS: Add Urine Culture? Yes; Amorphous Sediment Urine 1+ /hpf; Bacteria Urine 1+ /hpf; Mucus Urine 2+ /hpf
[2023-06-08 01:40] LABS: Amphetamines Screen Urine Positive (Negative); Barbiturates Screen Urine Negative (Negative); Benzodiazepines Screen Urine Negative (Negative); Cocaine Screen Urine Negative (Negative); Opiate Screen Urine Negative (Negative); PCP Screen Urine Negative (Negative); THC Screen Urine Negative (Negative)
[2023-06-08] MEDS: sodium chloride 0.9% 1,000 ML 999 ML IV (02:02)
--- NOTE | 2023-06-08 02:03 | W.ED.FEMALGU ---
Documented by User: GOOD Garcia 06/08/23 03:03 HPI - Female Genitourinary General: Chief complaint: Urogenital-Female Stated complaint: ABD PAIN Time Seen by Provider: 06/08/23 00:31 Source: patient and EMS Mode of arrival: EMS Limitations: no limitations History of Present Illness: Patient presents emergency department today brought by EMS for evaluation treatment of complaints of catheter issues. Patient reports irritation with her indwelling Quevedo catheter and comes in because she saw blood in her Quevedo bag. Patient has been seen and evaluated several different times both here and at [place] regarding issues with bladder outlet obstruction for which she currently has the indwelling catheter. She has an appointment with urology on 06/10. Patient also has colostomy. She reports she has had stool output yesterday in the colostomy-very minimal today as she states she has not eaten anything. Patient reports good output in her Quevedo as well however, is now complaining of suprapubic pain from her Quevedo catheter. Patient received 4 of Zofran and 75 of fentanyl from EMS on the way in. Review of Systems General: Reports: 10 or more systems reviewed and unremarkable except in HPI and below PFSH ED PFSH: Medical History DDD (degenerative disc disease), lumbar Psychiatric care Psychiatric care Lumbar spondylosis Hydronephrosis of right kidney Rectal cancer Cancer free for 14 years. Lumbar radiculitis Peripheral neuropathy Obstructive sleep apnea Restless leg syndrome Chronic post-traumatic stress disorder Pulmonary embolism CKD (chronic kidney disease) Osteoarthritis of knees, bilateral Immunosuppression Psoriasis Psoriatic arthritis Surgical History History of resection of rectum H/O: hysterectomy Due to fibroids. H/O tubal ligation Colostomy in place Family History Other Cancer Social History Smoking and tobacco/nicotine status: current every day tobacco/nicotine user cigarettes Packs smoked per day: 3 Years cigarettes smoked: 41 [ Other cigarette details: Pt reports smoking at age 3] Alcohol intake: current Alcohol intake frequency: holidays/special occasions only Substance/Drug Use: never Lives independently: Yes Household members: none Marital status: Legally Current occupational status: disabled Do you think of yourself as: Straight/Heterosexual Current gender identity: Female Physical Exam Const: COMMON NORMALS: patient oriented x3 and alert OTHER: Patient is extremely agitated-constantly moving around in the bed HENMT: COMMON NORMALS: hearing grossly normal bilaterally and moist oral mucous membranes Neck/C-Spine: COMMON NORMALS: full ROM Lymph: LYMPHATIC: no lymphadenopathy noted Resp: COMMON NORMALS: normal respiratory effort, No retractions and No use of accessory muscles Cardio: RATE: tachycardic GI: OTHER: Difficult to auscultate bowel sounds due to patient movement. Patient has an empty colostomy bag just below the umbilical region. abdomen is soft on palpation. There are well healed surgical incision sites noted. : OTHER: Brief visualization of the vulvovaginal region revealed no signs of any obvious abnormalities Extremity: COMMON NORMALS: normal to inspection, full ROM and capillary refill normal NARRATIVE EXTREMITY EXAM: Patient is constantly kicking and moving around in the bed. Neuro: COMMON NORMALS: patient oriented x3 SENSORIUM/ORIENTATION: Yes alert Psych: COMMON NORMALS: mental status grossly normal, cooperative, normal affect, speech normal and activity/motor behavior normal SPEECH: Yes normal speech Skin: OTHER: Patient with significant psoriasis rash noted on her extremities. Course Vital Signs: Vital signs: Vital Signs Temperature 98.1 F 06/08/23 00:27 Pulse Rate 91 06/08/23 05:10 Respiratory Rate 16 06/08/23 05:10 Blood Pressure 118/90 06/08/23 05:10 Pulse Oximetry 99 06/08/23 05:10 Oxygen Delivery Me thod Room Air 06/08/23 03:30 MDM - Female Medical Decision Making Patient presented via EMS for complaints of suprapubic/catheter pain and hematuria. Chart review shows patient had an issue with bladder outlet obstruction which is why she received a Quevedo in the first place. It is also believes she has already seen urology at [place] though it appears she has another follow-up appointment with urology on the 12th of this month. Patient was extremely agitated upon her arrival here to the emergency department. She had received 75 of fentanyl but was asking for more pain medication. Nursing was able to obtain a urine specimen from a clean Quevedo bag and patient tested positive for methamphetamines. Patient was provided IV Tylenol in addition to the fentanyl she has already received for her pain. Urinalysis shows 1+ bacteria, trace leukocytes, 10-15 white blood cells and no nitrites. She does have a decrease in her GFR and fluids have been administered. I spoke with Dr. Wagner who agrees, we will hold off on any further narcotic pain medications for this patient but would recommend a CT scan to evaluate for potential Pyelo at this time. Transfer of care to Dr Wagner at 0300. Differential Diagnosis Likely abdominal pain; Unlikely acute appendicitis, calculus of kidney, diverticulitis or small bowel obstruction Lab Data 06/08/23 00:31 06/08/23 00:31 Radiology Impressions Abdomen/Pelvis CT 06/08/23 02:21 IMPRESSION: 1. Mild bladder wall thickening. 2. Unremarkable kidneys. Laboratory Results WBC 10.10 10^3/uL (3.29-11.43) 06/08/23 00:31 RBC 4.24 10^6/uL (3.85-5.65) 06/08/23 00:31 Hgb 13.20 g/dL (11.27-16.99) 06/08/23 00:31 Hct 37.2 % (36-47) 06/08/23 00:31 MCV 87.7 fl (85-98) 06/08/23 00:31 MCH 31.1 pg (27-33) 06/08/23 00:31 MCHC 35.5 g/dL (30-55) 06/08/23 00:31 RDW 12.5 % (12.1-15.1) 06/08/23 00:31 Plt Count 409 10^3/cmm (157-399) H 06/08/23 00:31 MPV 8.8 fL (7.4-10.4) 06/08/23 00:31 Neut % (Auto) 70.7 % 06/08/23 00:31 Lymph % (Auto) 20.0 % 06/08/23 00:31 [place] % (Auto) 5.7 % 06/08/23 00:31 Eos % (Auto) 1.0 % 06/08/23 00:31 Baso % (Auto) 1.2 % 06/08/23 00:31 Neut # (Auto) 7.14 10^3/uL (1.8-7.7) 06/08/23 00:31 Lymph # (Auto) 2.0 10^3/uL (0.8-4.8) 06/08/23 00:31 [place] # (Auto) 0.6 10^3/uL (0.2-0.9) 06/08/23 00:31 Eos # (Auto) 0.1 10^3/uL (0.0-0.8) 06/08/23 00:31 Baso # (Auto) 0.1 10^3/uL (0.0-0.1) 06/08/23 00:31 Nucleated RBC % (auto) 0 % 06/08/23 00: Nucleated RBCs # 0.0 /100WBC 06/08/23 00:31 Sodium 135 mmol/L (136-145) L 06/08/23 00:31 Potassium 3.8 mmol/L (3.5-5.1) 06/08/23 00: Chloride 100 mmol/L (98-107) 06/08/23 00:31 Carbon Dioxide 16 mmol/L (22-29) L 06/08/23 00:31 Anion Gap 22.8 (5-19) H 06/08/23 00:31 BUN 17 mg/dL (6-20) 06/08/23 00:31 Creatinine 1.3 mg/dL (0.5-0.9) H 06/08/23 00:31 GFR Calculation 42.5 mL/min (90-130) L 06/08/23 00:31 Glucose 98 mg/dL (65-115) 06/08/23 00:31 Calculated Osmolality 282 mOsm/kg (285-295) L 06/08/23 00:31 Calcium 9.5 mg/dL (8.5-10.5) 06/08/23 00:31 Total Bilirubin 0.9 mg/dL (0.15-1.2) 06/08/23 00:31 AST 18 U/L (0-32) 06/08/23 00:31 ALT 15 U/L (0-33) 06/08/23 00:31 Alkaline Phosphatase 83 U/L (35-105) 06/08/23 00:31 Total Protein 7.7 g/dL (6.6-8.7) 06/08/23 00:31 Albumin 4.1 g/dL (3.5-5.2) 06/08/23 00:31 Globulin 3.6 g/dL (1.3-4.6) 06/08/23 00:31 Lipase 19 U/L (13-60) 06/08/23 00:31 HCG, Qual Negative (Negative) 06/08/23 01:12 Urine Color Red (Yellow) A 06/08/23 01:19 Urine Appearance Cloudy (CLEAR) A 06/08/23 01:19 Urine pH 5 (5-7) 06/08/23 01:19 Ur Specific Bo[place]us 1.025 (1.005-1.030) 06/08/23 01:19 Urine Protein 3+ (Negative) H 06/08/23 01:19 Urine Glucose (UA) Norm (Normal) 06/08/23 01:19 Urine Ketones 1+ (Negative) H 06/08/23 01:19 Urine Blood 3+ (Negative) H 06/08/23 01:19 Urine Nitrate Negative (Negative) 06/08/23 01:19 Urine Bilirubin Neg (Negative) 06/08/23 01:19 Urine Urobilinogen Neg mg/dL (Negative) 06/08/23 01:19 Ur Leukocyte Esterase Trace (Negative) H 06/08/23 01:19 Urine RBC 80-100 /hpf (0-2) H 06/08/23 01:19 Urine WBC 10-15 /hpf (0-5) H 06/08/23 01:19 Ur Squamous Epith Cells None /hpf (0-5) 06/08/23 01:19 Amorphous Sediment 1+ /hpf 06/08/23 01:19 Urine Bacteria 1+ /hpf (NONE) H 06/08/23 01:19 Urine Mucus 2+ /hpf 06/08/23 01:19 Urine Opiates Screen Negative ng/mL (Negative) 06/08/23 01:19 Ur Barbiturates Screen Negative ng/mL (Negative) 06/08/23 01:19 Ur Phencyclidine Scrn Negative ng/mL (Negative) 06/08/23 01:19 Ur Amphetamines Screen Positive ng/mL (Negative) H 06/08/23 01:19 U Benzodiazepines Scrn Negative ng/mL (Negative) 06/08/23 01:19 Urine Cocaine Screen Negative ng/mL (Negative) 06/08/23 01:19 U Marijuana (THC) Screen Negative ng/mL (Negative) 06/08/23 01:19 All radiology interpretation(s) finalized by discharge Discharge Plan Discharge Patient Disposition: Home Clinical Impression: Hematuria Qualifiers: Hematuria type: gross Qualified Code(s): R31.0 - Gross hematuria Abdominal pain Qualifiers: Abdominal location: generalized Qualified Code(s): R10.84 - Generalized abdominal pain Condition: Stable Prescriptions: No Action albuterol sulfate 90 mcg/actuation HFA aerosol inhaler 1 inh inhalation QID PRN (Reason: shortness of breath or wheezing) Qty: 8.5 5RF folic acid 1 mg tablet 1 mg PO DAILY Qty: 90 2RF buspirone 15 mg tablet 15 mg PO BID Qty: 60 5RF quetiapine 300 mg tablet 300 mg PO BEDTIME Qty: 30 5RF Rx Instructions: take with 200mg ropinirole 4 mg tablet 4 mg PO BEDTIME Qty: 30 5RF Rx Instructions: take two hours before bed gabapentin 600 mg tablet 600 mg PO BEDTIME Qty: 30 5RF paroxetine HCl [Paxil] 40 mg tablet 40 mg PO DAILY Qty: 30 4RF (DME) insulin syringe-needle U-100 [TRUEplus Insulin] 1 mL 30 gauge x 5/16 syringe See Rx Instructions .ROUTE .MEDSUPPLY Qty: 100 2RF Rx Instructions: As directed Eliquis 5 mg tablet 5 mg PO BID Qty: 180 0RF quetiapine 200 mg tablet See Rx Instructions .ROUTE .COMPLEX Qty: 30 5RF Dose Instruction: TAKE ONE TABLET BY MOUTH DAILY Rx Instructions: TAKE ONE TABLET BY MOUTH DAILY (DME) Colostomy appliances and supplies See Rx Instructions .Route .MEDSUPPLY Qty: 100 0RF Rx Instructions: As directed methotrexate sodium 25 mg/mL solution 25 mg SUBCUT Q7D Qty: 10 2RF Rx Instructions: on fridays Orencia 125 mg/mL syringe See Rx Instructions .ROUTE .COMPLEX Qty: 4 1RF Dose Instruction: inject 125mg SUBCUTANEOUSLY ONCE a week Rx Instructions: inject 125mg SUBCUTANEOUSLY ONCE a week pantoprazole 40 mg tablet,delayed release (DR/EC) 40 mg PO BID Pyridium 200 mg tablet 200 mg PO TID PRN (Reason: pain) Qty: 20 0RF Discharge Orders: Discharge ED (Routine); Ordered 06/08/23 Ordered By: Musa Wagner Discharge Diet: Usual diet Discharge Activity: Resume usual activity Patient Instructions: Abdominal Pain (ED), Opioid Safety, Pain Management Activity Restrictions/Additional Instructions: Activity Restrictions/Additional Instructions: Thank you for choosing [facility] for your healthcare needs today. Please realize that you were seen in the Emergency Department and that we are providing you with an emergency medical screening exam and this may not be a complete and all inclusive of all the testing and or medical work-up that you may need to determine your ailment or severity of your illness. It is very important that you follow-up as instructed with your Primary care provider or Specialist for additional evaluation and to discuss your medical treatment plan. Coding Level of Care Code ED Finisher [employer] for Chg Fwd Documented by User: Musa Wagner MD 06/09/23 18:43 HPI - Female Genitourinary General: Chief complaint: Urogenital-Female Stated complaint: ABD PAIN Time Seen by Provider: 06/08/23 00:31 Review of Systems : Reports: flank pain, hematuria and other (Indwelling Quevedo catheter in place) [facility] ED PFSH: Medical History DDD (degenerative disc disease), lumbar Psychiatric care Psychiatric care Lumbar spondylosis Hydronephrosis of right kidney Rectal cancer Cancer free for 14 years. Lumbar radiculitis Peripheral neuropathy Obstructive sleep apnea Restless leg syndrome Chronic post-traumatic stress disorder Pulmonary embolism CKD (chronic kidney disease) Osteoarthritis of knees, bilateral Immunosuppression Psoriasis Psoriatic arthritis Surgical History History of resection of rectum H/O: hysterectomy Due to fibroids. H/O tubal ligation Colostomy in place Family History Other Cancer Social History (Reviewed 06/08/23 @ 02:05 by ORTEGA Garcia Smoking and tobacco/nicotine status: current every day tobacco/nicotine user cigarettes Packs smoked per day: 3 Years cigarettes smoked: 41 [ Other cigarette details: Pt reports smoking at age 3] Alcohol intake: current Alcohol intake frequency: holidays/special occasions only Substance/Drug Use: never Lives independently: Yes Household members: none Marital status: Legally Current occupational status: disabled Do you think of yourself as: Straight/Heterosexual Current gender identity: Female Course Vital Signs: Vital signs: Vital Signs Temperature 98.1 F 06/08/23 00:27 Pulse Rate 91 06/08/23 05:10 Respiratory Rate 16 06/08/23 05:10 Blood Pressure 118/90 06/08/23 05:10 Pulse Oximetry 99 06/08/23 05:10 Oxygen Delivery Me thod Room Air 06/08/23 03:30 MDM - Female Medical Decision Making Patient presented via EMS for complaints of suprapubic/catheter pain and hematuria. Chart review shows patient had an issue with bladder outlet obstruction which is why she received a Quevedo in the first place. It is also believes she has already seen urology at [place] though it appears she has another follow-up appointment with urology on the 12th of this month. Patient was extremely agitated upon her arrival here to the emergency department. She had received 75 of fentanyl but was asking for more pain medication. Nursing was able to obtain a urine specimen from a clean Quevedo bag and patient tested positive for methamphetamines. Patient was provided IV Tylenol in addition to the fentanyl she has already received for her pain. Urinalysis shows 1+ bacteria, trace leukocytes, 10-15 white blood cells and no nitrites. She does have a decrease in her GFR and fluids have been administered. I spoke with Dr. Wagner who agrees, we will hold off on any further narcotic pain medications for this patient but would recommend a CT scan to evaluate for potential Pyelo at this time. Transfer of care to Dr Wagner at 0300. Attending physician attestation I assumed care of the patient from the midlevel provider and we discussed the patient's history of present illness, physical exam findings, pertinent labs, pertinent radiographic exams and plan of care with the midlevel provider. I did personally have a [id number] evaluation and discussion with the patient regarding the plan of care and the need for further evaluation as previously advised. Medical Records I reviewed the patient's medical records. Lab Data I reviewed the patient's lab results. 06/08/23 00:31 06/08/23 00:31 Radiology Impressions Abdomen/Pelvis CT 06/08/23 02:21 IMPRESSION: 1. Mild bladder wall thickening. 2. Unremarkable kidneys. Laboratory Results WBC 10.10 10^3/uL (3.29-11.43) 06/08/23 00:31 RBC 4.24 10^6/uL (3.85-5.65) 06/08/23 00:31 Hgb 13.20 g/dL (11.27-16.99) 06/08/23 00:31 Hct 37.2 % (36-47) 06/08/23 00: MCV 87.7 fl (85-98) 06/08/23 00: MCH 31.1 pg (27-33) 06/08/23 00: MCHC 35.5 g/dL (30-55) 06/08/23 00: RDW 12.5 % (12.1-15.1) 06/08/23 00:31 Plt Count 409 10^3/cmm (157-399) H 06/08/23 00:31 MPV 8.8 fL (7.4-10.4) 06/08/23 00:31 Neut % (Auto) 70.7 % 06/08/23 00: Lymph % (Auto) 20.0 % 06/08/23 00:31 [place] % (Auto) 5.7 % 06/08/23 00:31 Eos % (Auto) 1.0 % 06/08/23 00:31 Baso % (Auto) 1.2 % 06/08/23 00:31 Neut # (Auto) 7.14 10^3/uL (1.8-7.7) 06/08/23 00:31 Lymph # (Auto) 2.0 10^3/uL (0.8-4.8) 06/08/23 00:31 [place] # (Auto) 0.6 10^3/uL (0.2-0.9) 06/08/23 00:31 Eos # (Auto) 0.1 10^3/uL (0.0-0.8) 06/08/23 00:31 Baso # (Auto) 0.1 10^3/uL (0.0-0.1) 06/08/23 00:31 Nucleated RBC % (auto) 0 % 06/08/23 00:31 Nucleated RBCs # 0.0 /100WBC 06/08/23 00:31 Sodium 135 mmol/L (136-145) L 06/08/23 00:31 Potassium 3.8 mmol/L (3.5-5.1) 06/08/23 00:31 Chloride 100 mmol/L (98-107) 06/08/23 00:31 Carbon Dioxide 16 mmol/L (22-29) L 06/08/23 00:31 Anion Gap 22.8 (5-19) H 06/08/23 00:31 BUN 17 mg/dL (6-20) 06/08/23 00:31 Creatinine 1.3 mg/dL (0.5-0.9) H 06/08/23 00:31 GFR Calculation 42.5 mL/min (90-130) L 06/08/23 00:31 Glucose 98 mg/dL (65-115) 06/08/23 00:31 Calculated Osmolality 282 mOsm/kg (285-295) L 06/08/23 00:31 Calcium 9.5 mg/dL (8.5-10.5) 06/08/23 00:31 Total Bilirubin 0.9 mg/dL (0.15-1.2) 06/08/23 00:31 AST 18 U/L (0-32) 06/08/23 00:31 ALT 15 U/L (0-33) 06/08/23 00:31 Alkaline Phosphatase 83 U/L (35-105) 06/08/23 00:31 Total Protein 7.7 g/dL (6.6-8.7) 06/08/23 00:31 Albumin 4.1 g/dL (3.5-5.2) 06/08/23 00:31 Globulin 3.6 g/dL (1.3-4.6) 06/08/23 00:31 Lipase 19 U/L (13-60) 06/08/23 00:31 HCG, Qual Negative (Negative) 06/08/23 01:12 Urine Color Red (Yellow) A 06/08/23 01:19 Urine Appearance Cloudy (CLEAR) A 06/08/23 01:19 Urine pH 5 (5-7) 06/08/23 01:19 Ur Specific [place] 1.025 (1.005-1.030) 06/08/23 01:19 Urine Protein 3+ (Negative) H 06/08/23 01:19 Urine Glucose (UA) Norm (Normal) 06/08/23 01:19 Urine Ketones 1+ (Negative) H 06/08/23 01:19 Urine Blood 3+ (Negative) H 06/08/23 01:19 Urine Nitrate Negative (Negative) 06/08/23 01:19 Urine Bilirubin Neg (Negative) 06/08/23 01:19 Urine Urobilinogen Neg mg/dL (Negative) 06/08/23 01:19 Ur Leukocyte Esterase Trace (Negative) H 06/08/23 01:19 Urine RBC 80-100 /hpf (0-2) H 06/08/23 01:19 Urine WBC 10-15 /hpf (0-5) H 06/08/23 01:19 Ur Squamous Epith Cells None /hpf (0-5) 06/08/23 01:19 Amorphous Sediment 1+ /hpf 06/08/23 01:19 Urine Bacteria 1+ /hpf (NONE) H 06/08/23 01:19 Urine Mucus 2+ /hpf 06/08/23 01:19 Urine Opiates Screen Negative ng/mL (Negative) 06/08/23 01:19 Ur Barbiturates Screen Negative ng/mL (Negative) 06/08/23 01:19 Ur Phencyclidine Scrn Negative ng/mL (Negative) 06/08/23 01:19 Ur Amphetamines Screen Positive ng/mL (Negative) H 06/08/23 01:19 U Benzodiazepines Scrn Negative ng/mL (Negative) 06/08/23 01:19 Urine Cocaine Screen Negative ng/mL (Negative) 06/08/23 01:19 U Marijuana (THC) Screen Negative ng/mL (Negative) 06/08/23 01:19 Discharge Plan Discharge Patient Disposition: Home Clinical Impression: Hematuria Qualifiers: Hematuria type: gross Qualified Code(s): R31.0 - Gross hematuria Abdominal pain Qualifiers: Abdominal location: generalized Qualified Code(s): R10.84 - Generalized abdominal pain Condition: Stable Prescriptions: No Action albuterol sulfate 90 mcg/actuation HFA aerosol inhaler 1 inh inhalation QID PRN (Reason: shortness of breath or wheezing) Qty: 8.5 5RF folic acid 1 mg tablet 1 mg PO DAILY Qty: 90 2RF buspirone 15 mg tablet 15 mg PO BID Qty: 60 5RF quetiapine 300 mg tablet 300 mg PO BEDTIME Qty: 30 5RF Rx Instructions: take with 200mg ropinirole 4 mg tablet 4 mg PO BEDTIME Qty: 30 5RF Rx Instructions: take two hours before bed gabapentin 600 mg tablet 600 mg PO BEDTIME Qty: 30 5RF paroxetine HCl [Paxil] 40 mg tablet 40 mg PO DAILY Qty: 30 4RF (DME) insulin syringe-needle U-100 [TRUEplus Insulin] 1 mL 30 gauge x 5/16 syringe See Rx Instructions .ROUTE .MEDSUPPLY Qty: 100 2RF Rx Instructions: As directed Eliquis 5 mg tablet 5 mg PO BID Qty: 180 0RF quetiapine 200 mg tablet See Rx Instructions .ROUTE .COMPLEX Qty: 30 5RF Dose Instruction: TAKE ONE TABLET BY MOUTH DAILY Rx Instructions: TAKE ONE TABLET BY MOUTH DAILY (DME) Colostomy appliances and supplies See Rx Instructions .Route .MEDSUPPLY Qty: 100 0RF Rx Instructions: As directed methotrexate sodium 25 mg/mL solution 25 mg SUBCUT Q7D Qty: 10 2RF Rx Instructions: on fridays Orencia 125 mg/mL syringe See Rx Instructions .ROUTE .COMPLEX Qty: 4 1RF Dose Instruction: inject 125mg SUBCUTANEOUSLY ONCE a week Rx Instructions: inject 125mg SUBCUTANEOUSLY ONCE a week pantoprazole 40 mg tablet,delayed release (DR/EC) 40 mg PO BID Pyridium 200 mg tablet 200 mg PO TID PRN (Reason: pain) Qty: 20 0RF Discharge Orders: Discharge ED (Routine); Ordered 06/08/23 Ordered By: Musa Wagner Discharge Diet: Usual diet Discharge Activity: Resume usual activity Patient Instructions: Abdominal Pain (ED), Opioid Safety, Pain Management Activity Restrictions/Additional Instructions: Activity Restrictions/Additional Instructions: Thank you for choosing [facility] for your healthcare needs today. Please realize that you were seen in the Emergency Department and that we are providing you with an emergency medical screening exam and this may not be a complete and all inclusive of all the testing and or medical work-up that you may need to determine your ailment or severity of your illness. It is very important that you follow-up as instructed with your Primary care provider or Specialist for additional evaluation and to discuss your medical treatment plan. Coding Level of Care Code ED Finisher [employer] for Vicente Tobin
[2023-06-08] MEDS: acetaminophen 1,000 MG/100 ML PIGGYBACK 400 MG IV (02:17)
--- NOTE | 2023-06-08 02:21 | CTR_ITS ---
PROCEDURE INFORMATION: Exam: CT Abdomen And Pelvis With Contrast Exam date and time: 06/08/2023 2:41 AM Age: 53 years old Clinical indication: Abdominal pain; Localized; Prior surgery; Surgery date: 6+ months; Surgery type: Colostomy. Rectal resection. Hysterectomy. Tubal. Patient HX: C/O lower abd and pelvic pain. Hematuria. History of rectal cancer. Amato in place. ; Additional info: Eval pyelo, indwelling amato, mild UTI on ua but abd pain TECHNIQUE: Imaging protocol: Computed tomography of the abdomen and pelvis with contrast. Radiation optimization: All CT scans at this facility use at least one of these dose optimization techniques: automated exposure control; mA and/or kV adjustment per patient size (includes targeted exams where dose is matched to clinical indication); or iterative reconstruction. Contrast material: OMNI 350; Contrast volume: 100 ml; Contrast route: INTRAVENOUS (IV); COMPARISON: CT chest abdpel w/*[id number] 05/30/2023 6:23 PM RADIATION DOSE METRICS: Total DLP (mGy-cm): 633.43 FINDINGS: Liver: Normal. No mass. Gallbladder and bile ducts: Normal. No calcified stones. No ductal dilation. Pancreas: Normal. No ductal dilation. Spleen: Normal. No splenomegaly. Adrenal glands: Normal. No mass. Kidneys and ureters: Normal. No hydronephrosis. Stomach and bowel: Rectosigmoid colon surgical resection changes are noted. Left lower quadrant colostomy is unremarkable appearance. Negative for inflammatory bowel thickening. Negative for bowel obstruction. Negative for bowel perforation. Negative for pneumatosis intestinalis. Appendix: No evidence of appendicitis. Intraperitoneal space: Unremarkable. No free air. No significant fluid collection. Vasculature: Unremarkable. No abdominal aortic aneurysm. Lymph nodes: Unremarkable. No enlarged lymph nodes. Urinary bladder: Amato catheter in the bladder. Bladder decompressed. Question bladder wall thickening but this is difficult to assess given the nondistention. Reproductive: Unremarkable as visualized. Bones/joints: Unremarkable. No acute fracture. Soft tissues: Unremarkable. CT/CT abdomen pelvis w con* [id number] IMPRESSION: 1. Mild bladder wall thickening. 2. Unremarkable kidneys.
[2023-06-08 02:33] VITALS: PULSE 91; RESP 18; O2SAT 93
[2023-06-08] MEDS: iohexol 350 mg/mL 500 mL Btl (per mL) IV (02:51)
[2023-06-08 03:03] VITALS: PULSE 88; RESP 16; O2SAT 96
[2023-06-08 03:30] VITALS: RESP 15; O2SAT 92
[2023-06-08 05:10] VITALS: BP 118/90; PULSE 91; RESP 16; O2SAT 99
== END 2023-06-08 05:14 | disposition home or self-care (01) ==
PROVIDERS: Emergency Provider Internal Medicine
DX: R10.84 Generalized abdominal pain (principal); R31.0 Gross hematuria; F17.210 Nicotine dependence, cigarettes, uncomplicated; Z85.048 Personal history of other malignant neoplasm of rectum, rectosigmoid junction, and anus; N18.9 Chronic kidney disease, unspecified; Z93.3 Colostomy status
CPT/HCPCS: 51798; 74177; 80053; 80306; 81001; 81025; 83690; 85025; 87086; 96365; 99285; J0131; J7030; Q9967

== ENCOUNTER 2023-06-25 09:56 | Outpatient (CLI) | payer OTHER, MEDICAID, SELFPAY ==
--- NOTE | 2023-06-25 10:06 | US_ITS ---
WS: [id number] RENAL ULTRASOUND HISTORY: HYDRONEPHROSIS COMPARISON: CT 06/08/2023, prior ultrasound 06/06/2020 TECHNIQUE: 2-D and color Doppler imaging of the kidney submitted. Right kidney: 9.5 cm x 4.7 cm x 4.2 cm. Cortex: 1.0 cm Normal size kidney. There is mild hydronephrosis. Mild dilatation of the renal pelvis and calyces. Hy dronephrosis was not present on 06/06/2020. Left kidney: 9.8 cm x 4.9 cm x 3.6 cm. Cortex: 1.2 cm Normal echogenicity with no hydronephrosis or mass. Aorta: Normal. Urinary Bladder: Normal distention. IMPRESSION: 1. Mild RIGHT hydronephrosis. Hydronephrosis has significantly improved since the CT of 05/30/2023. M ild dilatation of the renal pelvis was also present on the study of 06/08/2023. 2. Negative LEFT kidney.
== END 2023-06-25 09:57 | disposition home or self-care (01) ==
LOC: RAD 09:56
PROVIDERS: PCP Family Medicine; Visit Provider Nurse Practitioner Family
DX: N13.30 Unspecified hydronephrosis (principal)
CPT/HCPCS: 76770

== ENCOUNTER 2023-07-09 07:34 | Outpatient (CLI) | payer MEDICARE, MEDICAID, SELFPAY ==
--- NOTE | 2023-07-09 08:00 | CT_ITS ---
WS: [id number] CT chest w con* [id number] HISTORY: new pulm nodule TECHNIQUE: Axial imaging performed through the thorax. Coronal and sagittal reformats are submitted. All CT scans at [facility] use at least one of these dose optimization techniques: automated exposure control; mA and/or kV adjustment per patient size (includes targeted exams where dose is mat ched to clinical indication); or iterative reconstruction. CONTRAST: Omnipaque 350; 100 mL IV. DLP: 391.65 mGy.cm COMPARISON: Chest CT 05/30/2023 Lungs and central airway: Hyperexpanded lungs from emphysema. Significant interval improvement in the recently described LEFT upper lobe consolidations and groundglass attenuation. The opacifications in cluding the nodules have nearly completely resolved. The there is mild persistent groundglass attenua tion. No pneumonia, no mass. No endobronchial lesions. Pleura: Normal. No pleural effusion. Heart and pericardium: Normal size heart with no pericardial effusion. Mediastinum and john: No mediastinum or hilar adenopathy. Vessels: Normal size aortic and pulmonary artery. No coronary artery calcifications. Chest wall and lower neck: No soft tissue masses. Upper abdomen: Small hiatal hernia. Mild hepatic steatosis. No adrenal mass. Osseous structures: No destructive process. CT/CT chest w con* [id number] IMPRESSION: 1. Near complete resolution of the previously described pulmonary opacificatio ns and nodules in the LEFT upper lobe since 05/30/2023. Minimal residual groundg lass attenuation. 2. No adenopathy. 3. No pleural effusions. 4. Mild emphysema.
[2023-07-09] MEDS: iohexol 300 mg/mL 100 mL Btl IV (08:30)
== END 2023-07-09 07:35 | disposition home or self-care (01) ==
LOC: RAD 07:37
PROVIDERS: PCP Family Medicine; Visit Provider Family Medicine
DX: R91.1 Solitary pulmonary nodule (principal); J43.9 Emphysema, unspecified
CPT/HCPCS: 71260; Q9967

== ENCOUNTER 2023-09-05 19:46 | Inpatient (IN) | payer MEDICARE, MEDICAID, SELFPAY ==
[2023-09-05 19:48] VITALS: BP 119/85; PULSE 63; RESP 16; TEMP 36.8; O2SAT 97; BMI 27.2
[2023-09-05 19:53] VITALS: BP 119/85; PULSE 65; RESP 17; O2SAT 95
--- NOTE | 2023-09-05 20:10 | CTR_ITS ---
PROCEDURE INFORMATION: Exam: CT Abdomen And Pelvis Without Contrast Exam date and time: 09/05/2023 8:34 PM Age: 53 years old Clinical indication: Abdominal pain; Right; Prior surgery; Surgery date: 6+ months; Surgery type: Colostomy. Bowel anastamosis. Patient HX: C/O RT flank pain. History of colon cancer. ; Additional info: R sided abd flank pain TECHNIQUE: Imaging protocol: Computed tomography of the abdomen and pelvis without contrast. Radiation optimization: All CT scans at this facility use at least one of these dose optimization techniques: automated exposure control; mA and/or kV adjustment per patient size (includes targeted exams where dose is matched to clinical indication); or iterative reconstruction. COMPARISON: CT abdomen pelvis w con* [id number] 06/08/2023 2:41 AM RADIATION DOSE METRICS: Total DLP (mGy-cm): 625.07 FINDINGS: Lungs: Clear basilar lung parenchyma. Pleural spaces: No pleural fluid. Heart: Normal heart size. Liver: Normal configuration. Homogeneous parenchyma. Gallbladder and biliary ducts: No regional inflammation. No calcified stones. No ductal dilation. Pancreas: Normal. No ductal dilation. Spleen: Normal. No splenomegaly. Adrenal glands: Normal configuration. Kidneys and ureters: No evidence of renal obstruction. No significant renal contour deformity. Stomach and bowel: Stomach is distended with fluid and ingested material. Mild dilation of proximal small bowel with increasing diameter distally. Distal small bowel feces. Transition point appears to be in the right lower quadrant with relative decompression the distal small bowel. Patent small bowel suture lines. Contrast noted in Mervin's pouch. Left lateral end colostomy. The retained rectum demonstrates mural thickening with heterogeneous perirectal edema. Appendix: Appendix is not visualized as a discrete structure but there is no inflammation at the cecal base. Intraperitoneal space: Trace free fluid in the peritoneal cavity. No free air. Vasculature: Normal caliber arterial structures. Lymph nodes: No enlarged lymph nodes. Urinary bladder: Unremarkable as visualized. Reproductive: Prior hysterectomy. No evidence of vaginal cuff or adnexal mass. Bones/joints: Sacrum is demineralized. Mild lumbar levoscoliosis. Adequate spinal canal. No destructive bony lesions are seen. Soft tissues: Unremarkable. CT/CT kidney stone [id number] IMPRESSION: 1. Exam demonstrates features of distal small bowel obstruction with transition point in the right lower quadrant, likely relating to adhesions. There is low volume free fluid in the peritoneal cavity but no free air. No bowel wall pneumatosis or portal venous gas. 2. There is segmental demineralization of the sacrum and perirectal soft tissue thickening which may reflect prior radiotherapy. 3. No evidence of urolithiasis.
[2023-09-05 20:12] LABS: Basophils # 0.1 10^3/uL (0.0-0.1); Basophils % 0.7 %; Eosinophils % 0.4 %; Hematocrit 41.8 % (36-47); Lymphocytes # 1.5 10^3/uL (0.8-4.8); Lymphocytes % 15.8 %; Mean Corpuscular HGB Conc 34.7 g/dL (30-55); Mean Corpuscular Volume 89.5 fl (85-98); Mean Platelet Volume 9.3 fL (7.4-10.4); Monocytes # 0.4 10^3/uL (0.2-0.9); Monocytes % 4.1 %; Neutrophils # 7.45 10^3/uL (1.8-7.7); Neutrophils % 78.8 %; Nucleated Red Blood Cells % 0 %; Platelet Count 320 10^3/cmm (157-399); Red Blood Count 4.67 10^6/uL (3.85-5.65); Red Cell Distribution Width 12.8 % (12.1-15.1); White Blood Count 9.46 10^3/uL (3.29-11.43)
[2023-09-05] MEDS: ketorolac 30 mg/mL INJ IVP (20:26)
[2023-09-05] MEDS: ondansetron 2 mg/ML SDV 2 mL 4 MG IVP ×2 (20:27→23:11)
[2023-09-05 20:29] VITALS: PULSE 55; RESP 18; O2SAT 99
[2023-09-05] MEDS: morphine 4 mg/mL SDV 1 mL IVP ×2 (20:29→23:13)
[2023-09-05 20:35] LABS: Alanine Aminotransferase 11 U/L (0-33); Albumin Level 4.1 g/dL (3.5-5.2); Alkaline Phosphatase 69 U/L (35-105); Aspartate Amino Transferase 15 U/L (0-32); Blood Urea Nitrogen 10 mg/dL (6-20); Calcium 9.2 mg/dL (8.5-10.5); Carbon Dioxide 22 mmol/L (22-29); Chloride 100 mmol/L (98-107); Creatinine Clr Calc Pharmacy 101.5187; Glomerular Filtration Rate 86.9 mL/min (90-130); Glucose 113 mg/dL (65-115); Lipase 13 U/L (13-60); Osmolality Calculated 282 mOsm/kg (285-295); Sodium 136 mmol/L (136-145); Total Bilirubin 0.6 mg/dL (0.15-1.2); Total Protein 7.1 g/dL (6.6-8.7)
[2023-09-05 21:25] LABS: Add Urine Microscopic? NO; Charge for UA Resulting for Rev
[2023-09-05 21:27] LABS: Bilirubin Urine Neg (Negative); Blood Urine Neg (Negative); Glucose Urine UA Norm (Normal); Ketones Urine Negative (Negative); Leukocyte Esterase Urine Negative (Negative); Nitrate Urine Negative (Negative); Protein Urine Neg (Negative); Specific Gravity, Urine 1.015 (1.005-1.030); Urine Appearance Clear (CLEAR); Urine Color Yellow (Yellow); Urobilinogen Urine Neg (Negative); pH Urine 6 (5-7)
--- NOTE | 2023-09-05 22:22 | ED_ITS ---
HPI - Abdominal Pain 2 General: Chief Complaint: Abdominal Pain Stated Complaint: ABD PAIN Time Seen by Provider: 09/05/23 19:49 History of Present Illness: 53-year-old female with a history of rec tosigmoid colon cancer with colostomy. She presents with right-sided abdominal pain starting earlier today with several episodes of vomiting. No fever. No chills. No diarrhea. No blood in the stool. PFSH ED 2 PFSH: Medical History Loss of hair DDD (degenerative disc disease), lumbar Psychiatric care Psychiatric care Lumbar spondylosis Hydronephrosis of right kidney Rectal cancer Cancer free for 14 years. Lumbar radiculitis Peripheral neuropathy Obstructive sleep apnea Restless leg syndrome Chronic post-traumatic stress disorder Pulmonary embolism CKD (chronic kidney disease) Osteoarthritis of knees, bilateral Immunosuppression Psoriasis Psoriatic arthritis Surgical History History of resection of rectum H/O: hysterectomy Due to fibroids. H/O tubal ligation Colostomy in place Family History Other Cancer Social History Smoking and tobacco/nicotine status: current every day tobacco/nicotine user cigarettes Packs smoked per day: 0.5 Years cigarettes smoked: 41 [ Other cigarette details: Pt reports smoking at age 3] Alcohol intake: current Alcohol intake frequency: holidays/special occasions only Substance/Drug Use: never Lives independently: Yes Household members: none Marital status: Legally Current occupational status: disabled Do you think of yourself as: Straight/Heterosexual Current gender identity: Female Physical Exam 2 Const: GENERAL APPEARANCE: cooperative and ill appearing; not frail appearing HENMT: COMMON NORMALS: normocephalic, atraumatic and Normal external nose present HEAD & SCALP: normocephalic and atraumatic FACE & SINUS: normal facial exam and face symmetric NOSE: Normal external nose present Eye: COMMON NORMALS: Equal, round and reactive pupils present and EOMs intact bilaterally PUPIL: Yes Equal, round and reactive pupils present Neck/C-Spine: GENERAL: Yes trachea midline Chest: CHEST: Yes Symmetrical chest wall rise Resp: COMMON NORMALS: normal respiratory effort, No retractions, No use of accessory muscles and clear to auscultation bilaterally AUSCULTATION: clear to auscultation bilaterally Cardio: COMMON NORMALS: regular rate and regular rhythm RATE: regular rate RHYTHM: regular rhythm GI: COMMON NORMALS: Normal to inspection, nondistended, normoactive bowel sounds present PALPATION: Yes Tenderness to palpation present (GI) Details: RLQ and Yes Guarding due to palpation present (GI) Extremity: COMMON NORMALS: no pedal edema Neuro: THERON COMA SCALE: document GCS findings [place] coma scale eye opening: Spontaneous [place] coma scale verbal response: Orientated [place] coma scale motor response: Obey commands Theron coma scale total score: 15 S ENSORY EXAM: Yes extremities (intact) Psych: COMMON NORMALS: speech normal SPEECH: Yes normal speech Skin: COMMON NORMALS: no rashes or lesions noted GENERAL SKIN EXAM: no rashes or lesions noted Course 2 Vital Signs: Vital signs: Vital Signs Temperature 97.9 F 09/06/23 00:00 Pulse Rate 56 L 09/06/23 00:00 Respiratory Rate 16 09/06/23 00:00 Blood Pressure 135/71 09/06/23 00:00 Pulse Oximetry 96 09/06/23 00:00 Oxygen Delivery Me thod Room Air 09/06/23 00:00 MDM - Abdominal Pain Medical Decision Making CBC is normal. BMP is normal. She is afebrile. Vitals are stable. She has features of a distal small bowel obstruction likely related to adhesions with a transition point in the right lower quadrant on CT scan. Consulted with surgery. He is willing to consult. She will be admitted to medicine. Recommendations are for NG tube and fluid with n.p.o. status. These have been completed. Lab Data 09/05/23 20:05 09/05/23 20:05 Labs/Radiology: Radiology Impressions Abdomen/Pelvis CT 09/05/23 20:10 IMPRESSION: 1. Exam demonstrates features of distal small bowel obstruction with transition point in the right lower quadrant, likely relating to adhesions. There is low volume free fluid in the peritoneal cavity but no free air. No bowel wall pneumatosis or portal venous gas. 2. There is segmental demineralization of the sacrum and perirectal soft tissue thickening which may reflect prior radiotherapy. 3. No evidence of urolithiasis. ADDENDUM: 09/05/23 [id number] THIS REPORT CONTAINS FINDINGS THAT MAY BE CRITICAL TO PATIENT CARE. The findings were verbally communicated via telephone conference with AFRICA DELANEY at 9:54 PM CDT on 09/05/2023. The findings were acknowledged and understood. Chest X-Ray 09/05/23 23:07 IMPRESSION: No acute cardiopulmonary abnormality. Enteral tube is in satisfactory post Laboratory Results WBC 9.46 10^3/uL (3.29-11.43) 09/05/23 20:05 RBC 4.67 10^6/uL (3.85-5.65) 09/05/23 20:05 Hgb 14.50 g/dL (11.27-16.99) 09/05/23 20:05 Hct 41.8 % (36-47) 09/05/23 20:05 MCV 89.5 fl (85-98) 09/05/23 20:05 MCH 31.0 pg (27-33) 09/05/23 20:05 MCHC 34.7 g/dL (30-55) 09/05/23 20:05 RDW 12.8 % (12.1-15.1) 09/05/23 20:05 Plt Count 320 10^3/cmm (157-399) 09/05/23 20:05 MPV 9.3 fL (7.4-10.4) 09/05/23 20:05 Neut % (Auto) 78.8 % 09/05/23 20:05 Lymph % (Auto) 15.8 % 09/05/23 20:05 [place] % (Auto) 4.1 % 09/05/23 20:05 Eos % (Auto) 0.4 % 09/05/23 20:05 Baso % (Auto) 0.7 % 09/05/23 20:05 Neut # (Auto) 7.45 10^3/uL (1.8-7.7) 09/05/23 20:05 Lymph # (Auto) 1.5 10^3/uL (0.8-4.8) 09/05/23 20:05 [place] # (Auto) 0.4 10^3/uL (0.2-0.9) 09/05/23 20:05 Eos # (Auto) 0.0 10^3/uL (0.0-0.8) 09/05/23 20:05 Baso # (Auto) 0.1 10^3/uL (0.0-0.1) 09/05/23 20:05 Nucleated RBC % (auto) 0 % 09/05/23 20:05 Nucleated RBCs # 0.0 /100WBC 09/05/23 20:05 Sodium 136 mmol/L (136-145) 09/05/23 20:05 Potassium 4.0 mmol/L (3.5-5.1) 09/05/23 20:05 Chloride 100 mmol/L (98-107) 09/05/23 20:05 Carbon Dioxide 22 mmol/L (22-29) 09/05/23 20:05 Anion Gap 18.0 (5-19) 09/05/23 20:05 BUN 10 mg/dL (6-20) 09/05/23 20:05 Creatinine 0.7 mg/dL (0.5-0.9) 09/05/23 20:05 GFR Calculation 86.9 mL/min (90-130) L 09/05/23 20:05 Glucose 113 mg/dL (65-115) 09/05/23 20:05 Calculated Osmolality 282 mOsm/kg (285-295) L 09/05/23 20:05 Calcium 9.2 mg/dL (8.5-10.5) 09/05/23 20:05 Total Bilirubin 0.6 mg/dL (0.15-1.2) 09/05/23 20:05 AST 15 U/L (0-32) 09/05/23 20:05 ALT 11 U/L (0-33) 09/05/23 20:05 Alkaline Phosphatase 69 U/L (35-105) 09/05/23 20:05 C-Reactive Protein 3.0 mg/L (0.0-4.9) 09/05/23 20:05 Total Protein 7.1 g/dL (6.6-8.7) 09/05/23 20:05 Albumin 4.1 g/dL (3.5-5.2) 09/05/23 20:05 Globulin 3.0 g/dL (1.3-4.6) 09/05/23 20:05 Lipase 13 U/L (13-60) 09/05/23 20:05 Urine Color Yellow (Yellow) 09/05/23 21:13 Urine Appearance Clear (CLEAR) 09/05/23 21:13 Urine pH 6 (5-7) 09/05/23 21:13 Ur Specific [place] 1.015 (1.005-1.030) 09/05/23 21:13 Urine Protein Neg (Negative) 09/05/23 21:13 Urine Glucose (UA) Norm (Normal) 09/05/23 21:13 Urine Ketones Negative (Negative) 09/05/23 21:13 Urine Blood Neg (Negative) 09/05/23 21:13 Urine Nitrate Negative (Negative) 09/05/23 21:13 Urine Bilirubin Neg (Negative) 09/05/23 21:13 Urine Urobilinogen Neg mg/dL (Negative) 09/05/23 21:13 Ur Leukocyte Esterase Negative (Negative) 09/05/23 21:13 All radiology interpretation(s) finalized by discharge Discharge Plan Discharge Patient Disposition: Admitted As Inpatient Admit Provider: Matilda Chawla Clinical Impression: Small bowel obstruction Condition: Stable Coding Level of Care Code ED It Audit Manager for Vicente Tobin
--- NOTE | 2023-09-05 22:22 | P.CONIM_ITS ---
Providers/Reason For Consult 2 Consulting Physician/Specialty*: General surgery Reason for Consult*: Small bowel obstruction Primary Care Provider: Brii Borden NP History of Present Illness History of Present Illness Maura Hermosillo is a 53 year old female with history of distal colon resection with end colostomy for rectal cancer about 7 to 10 years ago. She presents to the emergency department with right lower quadrant abdominal pain, nausea and vomit for the last 24 hours. Ostomy has been productive of gas and stool today. She has a previous history of a small bowel obstruction that was treated with conservative measures about [address] scan done in the emergency department show evidence of small bowel obstruction likely due to adhesions located in the right lower quadrant. No concerning features, no free air or perforation noted. Review of Systems 2 General: Reports: 10 or more systems reviewed and unremarkable except in HPI and below Medications/Allergies Home Medications Medication Instructions Recorded Confirmed Last Taken Type folic acid 1 mg tablet 1 mg PO DAILY #90 tabs 08/27/21 08/30/23 2 Weeks Ago Rx ~07/24/22 insulin syringe-needle U-100 1 mL #100 ea 06/15/22 08/30/23 Unknown Rx 30 gauge x 5/16 (TRUEplus Insulin) pantoprazole 40 mg tablet,delayed 40 mg PO BID 08/07/22 08/30/23 2 Weeks Ago History release ~07/24/22 buspirone 15 mg tablet 15 mg PO BID #60 tabs 08/14/22 08/30/23 Unknown Rx gabapentin 600 mg tablet 600 mg PO BEDTIME #30 tabs 08/14/22 08/30/23 Unknown Rx quetiapine 300 mg tablet 300 mg PO BEDTIME #30 tabs 08/14/22 08/30/23 Unknown Rx ropinirole 4 mg tablet 4 mg PO BEDTIME #30 tabs 08/14/22 08/30/23 Unknown Rx apixaban 5 mg tablet (Eliquis) 5 mg PO BID #180 tabs 08/21/22 08/30/23 Unknown Rx paroxetine HCl 40 mg tablet (Paxil) 40 mg PO DAILY #30 tabs 08/26/22 08/30/23 Unknown Rx quetiapine 200 mg tablet See Rx Instructions .Route 09/12/22 08/30/23 Unknown Rx .COMPLEX #30 tabs Colostomy appliances and supplies #100 ea 11/12/22 08/30/23 Unknown Rx albuterol sulfate 90 mcg/actuation 1 inh inhalation QID PRN shortness 01/12/23 08/30/23 Unknown Rx aerosol inhaler of breath or wheezing #8.5 grams methotrexate sodium 25 mg/mL 25 mg SUBCUT Q7D #10 mL 03/17/23 08/30/23 Unknown Rx injection solution abatacept 125 mg/mL subcutaneous See Rx Instructions .Route 06/02/23 08/30/23 Unknown Rx syringe (Orencia) .COMPLEX #4 mL phenazopyridine 200 mg tablet 200 mg PO TID PRN pain #20 tabs 06/03/23 08/30/23 Unknown Rx (Pyridium) fluticasone fur. 100 mcg-umeclid 1 inh inhalation DAILY #60 ea 06/15/23 08/30/23 Unknown Rx 62.5 mcg-vilant 25 mcg inhalat.powder (Trelegy Ellipta) syringe with needle 1 mL 25 gauge #50 ea 07/01/23 08/30/23 Unknown Rx x 5/8 (Monoject TB Safety Syringe) Allergies Allergy/AdvReac Type Severity Reaction Status Date / Time coconut oil Allergy Severe anaphylaxis Verified 09/05/23 19:51 mushroom Allergy Severe trouble Verified 09/05/23 19:51 breathing duloxetine [From Cymbalta] Allergy Intermediate dizziness,v Verified 09/05/23 19:51 omiting atorvastatin AdvReac Intermediate does not Verified 09/05/23 19:51 want to take it PFSH Acute 2 PFSH: Medical History Loss of hair DDD (degenerative disc disease), lumbar Psychiatric care Psychiatric care Lumbar spondylosis Hydronephrosis of right kidney Rectal cancer Cancer free for 14 years. Lumbar radiculitis Peripheral neuropathy Obstructive sleep apnea Restless leg syndrome Chronic post-traumatic stress disorder Pulmonary embolism CKD (chronic kidney disease) Osteoarthritis of knees, bilateral Immunosuppression Psoriasis Psoriatic arthritis Surgical History History of resection of rectum H/O: hysterectomy Due to fibroids. H/O tubal ligation Colostomy in place Family History Other Cancer Social History Smoking and tobacco/nicotine status: current every day tobacco/nicotine user cigarettes Packs smoked per day: 0.5 Years cigarettes smoked: 41 [ Other cigarette details: Pt reports smoking at age 3] Alcohol intake: current Alcohol intake frequency: holidays/special occasions only Substance/Drug Use: never Lives independently: Yes Household members: none Marital status: Legally Current occupational status: disabled Do you think of yourself as: Straight/Heterosexual Current gender identity: Female Vitals/I&O/Wt Last Vital Signs Temp 98.2 F 09/05/23 19:48 Pulse 55 L 09/05/23 20:29 Resp 18 09/05/23 20:29 BP 119/85 09/05/23 19:53 Pulse Ox 99 09/05/23 20:29 O2 Del Method Room Air 09/05/23 20:29 Weight last 48 hrs Weight 179 lb Physical Exam 2 Narrative: General : Patient is well developed , no acute distress, oriented x3 Head : Normal cephalic, a-traumatic. Nose : Mucous membranes are without erythema. Lungs : Equal chest rise bilaterally, no use of accessory muscles, trachea is midline. CV : Rate and rhythm are normal. Abdomen : Soft, minimally distended, minimally tender in the right lower quadrant, ostomy bag with stool noticed. Extremities : No edema. Upper extremities are normal bilaterally. Back : non-tender to palpation, no CVA tenderness. Data 09/05/23 20:05 09/05/23 20:05 A&P Assessment and plan (1) Colostomy in place: (2) Small bowel obstruction: Plan After a complete history physical examination and review of all available clinical data the following is my assessment. This is a patient with complex surgical history who presents with small bowel obstruction likely due to adhesions. Clinical presentation has no concerning features at the moment, no elevation in the white count, normal CRP, no concerning imaging features and abdominal exam that is pretty benign. With this findings I consider that it would be prudent to proceed with conservative management of her small bowel obstruction as a DC of small bowel obstruction often resolves with nonoperative management. We will proceed with NG tube decompression for the next 24 to 48 hours, after this we will proceed with a Gastrografin trial, if Gastrografin trial is negative we might to decide on surgical intervention. I discussed with the patient and Informed her that in the case of need for surgical intervention she is a very high risk for surgical complications and even mortality due to history of complex surgery. She shows understanding and is agreeable with our proposed treatment. Patient will be admitted to the hospitalist team and will follow-up as a corporate health consultant. -N.p.o. - insert NG tube in place to low intermittent wall suction -IV fluids -After 48 hours of decompression we will proceed with a contrast study. Coding Level of Care Code [address] Z93.3 Small bowel obstruction K56.609
[2023-09-05 22:44] VITALS: BP 115/57; PULSE 66; RESP 15; O2SAT 95
--- NOTE | 2023-09-05 22:50 | P.HP_ITS ---
Providers/Chief Complaint 2 Primary Care Provider: Brii Borden NP Chief Complaint: ABD PAIN History of Present Illness Maura Hermosillo is a 53 year old female With past medical history of rectal cancer, PE, restless leg syndrome, EDGARD, psoriatic arthritis, degenerative disc disease, resection of rectum with diverting colostomy presented to the hospital today for complaint of severe nausea vomiting for the last 2 days and interval development of abdominal pain since this morning. She is also been experiencing diarrhea which is watery. She states she has been having loose stools daily 2-3 times a day however today has only emptied her colostomy bag once. She is unable to tell me for sure if this amount of stool burden is normal for her or not. She says she is having abdominal pain as we speak and is uncomfortable. NG tube draining oral secretions and water which she had earlier in the ER. NG tube was to low intermittent suction at this time. She says she had rectal cancer 15 years ago and thereafter had a resection done. As per her she is cancer free at this time. She has never had a bowel obstruction before she states. ER course on arrival vital stable labs normal. CT abdomen pelvis done which shows features of distal small bowel obstruction with transition point in right lower quadrant likely related to adhesions. There is low volume free fluid in the peritoneal cavity but no free air no bowel wall pneumatosis or portal venous gas. There is segmental demineralization of the sacrum and perirectal soft tissue thickening which may reflect prior radiotherapy. No evidence of urolithiasis. General surgery was consulted who would like to manage conservatively at this time. NG tube placement recommended for next 24 to 48 hours thereafter will proceed with Gastrografin trial. If there is negative further management regarding surgical intervention will be decided upon Medications/Allergies Home Medications Medication Instructions Recorded Confirmed Last Taken Type folic acid 1 mg tablet 1 mg PO DAILY #90 tabs 08/27/21 09/05/23 2 Weeks Ago Rx ~07/24/22 insulin syringe-needle U-100 1 mL #100 ea 06/15/22 09/05/23 Unknown Rx 30 gauge x 07/14 (TRUEplus Insulin) buspirone 15 mg tablet 15 mg PO BID #60 tabs 08/14/22 09/05/23 Unknown Rx gabapentin 600 mg tablet 600 mg PO BEDTIME #30 tabs 08/14/22 09/05/23 Unknown Rx quetiapine 300 mg tablet 300 mg PO BEDTIME #30 tabs 08/14/22 09/05/23 Unknown Rx ropinirole 4 mg tablet 4 mg PO BEDTIME #30 tabs 08/14/22 09/05/23 Unknown Rx paroxetine HCl 40 mg tablet (Paxil) 40 mg PO DAILY #30 tabs 08/26/22 09/05/23 Unknown Rx quetiapine 200 mg tablet See Rx Instructions .Route 09/12/22 09/05/23 Unknown Rx .COMPLEX #30 tabs Colostomy appliances and supplies #100 ea 11/12/22 09/05/23 Unknown Rx albuterol sulfate 90 mcg/actuation 1 inh inhalation QID PRN shortness 01/12/23 09/05/23 Unknown Rx aerosol inhaler of breath or wheezing #8.5 grams methotrexate sodium 25 mg/mL 25 mg SUBCUT Q7D #10 mL 03/17/23 09/05/23 Unknown Rx injection solution abatacept 125 mg/mL subcutaneous See Rx Instructions .Route 06/02/23 09/05/23 Unknown Rx syringe (Orencia) .COMPLEX #4 mL fluticasone fur. 100 mcg-umeclid 1 inh inhalation DAILY #60 ea 06/15/23 09/05/23 Unknown Rx 62.5 mcg-vilant 25 mcg inhalat.powder (Trelegy Ellipta) syringe with needle 1 mL 25 gauge #50 ea 07/01/23 09/05/23 Unknown Rx x 5/8 (Monoject TB Safety Syringe) Allergies Allergy/AdvReac Type Severity Reaction Status Date / Time coconut oil Allergy Severe anaphylaxis Verified 09/05/23 19:51 mushroom Allergy Severe trouble Verified 09/05/23 19:51 breathing duloxetine [From Cymbalta] Allergy Intermediate dizziness,v Verified 09/05/23 19:51 omiting atorvastatin AdvReac Intermediate does not Verified 09/05/23 19:51 want to take it PFSH Acute 2 PFSH: Medical History Loss of hair DDD (degenerative disc disease), lumbar Psychiatric care Psychiatric care Lumbar spondylosis Hydronephrosis of right kidney Rectal cancer Cancer free for 14 years. Lumbar radiculitis Peripheral neuropathy Obstructive sleep apnea Restless leg syndrome Chronic post-traumatic stress disorder Pulmonary embolism CKD (chronic kidney disease) Osteoarthritis of knees, bilateral Immunosuppression Psoriasis Psoriatic arthritis Surgical History History of resection of rectum H/O: hysterectomy Due to fibroids. H/O tubal ligation Colostomy in place Family History Other Cancer Social History Smoking and tobacco/nicotine status: current every day tobacco/nicotine user cigarettes Packs smoked per day: 0.5 Years cigarettes smoked: 41 [ Other cigarette details: Pt reports smoking at age 3] Alcohol intake: current Alcohol intake frequency: holidays/special occasions only Substance/Drug Use: never Lives independently: Yes Household members: none Marital status: Legally Current occupational status: disabled Do you think of yourself as: Straight/Heterosexual Current gender identity: Female Vitals/I&O/Wt Last Vital Signs Temp 98.2 F 09/05/23 19:48 Pulse 66 09/05/23 22:44 Resp 15 09/05/23 22:44 BP 115/57 09/05/23 22:44 Pulse Ox 95 09/05/23 22:44 O2 Del Method Room Air 09/05/23 22:44 Weight last 48 hrs Weight 81.193 kg Physical Exam 2 Narrative: General: Alert oriented x3, patient seen laying in bed in mild to moderate distress secondary to abdominal pain. She says she is exhausted as has been sick for the last 2 days. HEENT: Normocephalic, atraumatic, EOMI, breathing room air, NG tube in place. Cardio: Regular rate rhythm, normal S1-S2 Respiratory: Good bilateral air entry, no wheezes no rhonchi appreciated GI: Abdomen soft, mild distention present, mild tenderness in right lower quadrant. Stool in ostomy bag, gas also present. Bowel sounds + Extremities: Within normal limits. Data 09/05/23 20:05 09/05/23 20:05 A&P Assessment and plan (1) High risk medication use: (2) Colostomy in place: (3) Small bowel obstruction: (4) Obstructive sleep apnea: (5) Nausea & vomiting: Plan #Small bowel obstruction #History of colon cancer status post rectal resection and colostomy #History of psoriatic arthritis #Obstructive sleep apnea #History of CKD, PE, immunosuppression ? Conservative management at this time. ? Continue NGT placement continue low intermittent wall suction ? Placed on normal saline 125 cc/h ? Morphine IV for pain. Will give one-time Dilaudid at this time. If uncontrolled may switch to Dilaudid, morphine. ? General surgery consulted. Plan to get Gastrografin study in 24 to 48 hours. ? Decision for surgery will be made at that point. ? Check input output every 4 hours ?? Check PT/INR, CBC, BMP, mag in AM. ? Check lactic acid ? Will need to to confirm home medications. Full code DVT prophylaxis: Heparin SQ twice daily Attestations 2 Medical Necessity Statement*: Greater than 2 midnight stay for management of small bowel obstruction. Diagnoses High risk medication use Z79.[address] Z93.3 Small bowel obstruction K56.609 Obstructive sleep apnea G47.33 Nausea & vomiting R11.2
[2023-09-05] MEDS: cetacaine Spray 5 gm Can 5 SPRAY (23:03)
--- NOTE | 2023-09-05 23:07 | XRR_ITS ---
PROCEDURE INFORMATION: Exam: XR Chest Exam date and time: 09/05/2023 11:14 PM Age: 53 years old Clinical indication: Device placement; Ng tube; Prior surgery; Surgery date: 6+ months; Surgery type: Colostomy; Patient HX: Check S/P ng placement; Additional info: Ng tube placement TECHNIQUE: Imaging protocol: Radiologic exam of the chest. Views: 1 view. COMPARISON: CT chest w con* [id number] 07/09/2023 8:28 AM FINDINGS: Tubes, catheters and devices: Enteral tube has been inserted in satisfactory. Lungs: Clear, symmetrically inflated lungs. Pleural spaces: No pleural effusion. No pneumothorax. Heart/Mediastinum: Cardiac silhouette is normal in size for technique. Bones/joints: Age appropriate. XR/XR chest 1V portable [id number] IMPRESSION: No acute cardiopulmonary abnormality. Enteral tube is in satisfactory post
[2023-09-05 23:13] VITALS: RESP 20; O2SAT 93
[2023-09-06] VITALS (11 sets, daily range): BP systolic 103–135; BP diastolic 53–77; PULSE 56–73; RESP 16–24; TEMP 36.4–37.1; O2SAT 94–98
[2023-09-06] MEDS: sodium chloride 0.9% 1,000 ML 100 ML IV (00:27)
[2023-09-06] MEDS: HYDROmorphone 1 mg/mL INJ 1 mL 0.25 MG IVP (00:37)
[2023-09-06] MEDS: sodium chloride 0.9% 1,000 ML 125 ML IV ×3 (02:13→20:48)
[2023-09-06] MEDS: morphine 4 mg/mL SDV 1 mL 2 MG IVP ×4 (02:50→23:47)
[2023-09-06 03:19] LABS: Lactic Sepsis W/Reflex 1.4 mmol/L (0.5-2.2)
[2023-09-06 03:24] LABS: Magnesium 2.1 mg/dL (1.7-2.3); Procalcitonin 0.06 ng/mL (0-0.5)
[2023-09-06] MEDS: pantoprazole 40 mg SDV IVP (05:31)
[2023-09-06] MEDS: phenol oral Spray 177 mL 3 SPRAY MUCOUS MEM (05:37)
--- NOTE | 2023-09-06 07:22 | P.PN_ITS ---
Subjective 2 Subjective: Patient evaluated at the bedside this morning. There has been minimal output from the NG tube. Continues to complain of some abdominal pain in the right lower quadrant, ostomy is productive of gas and stool. Vitals/I&O/Wt Last Vital Signs Temp 98.2 F 09/06/23 04:00 Pulse 60 09/06/23 04:00 Resp 16 09/06/23 04:00 BP 118/71 09/06/23 04:00 Pulse Ox 95 09/06/23 04:00 O2 Del Method Room Air 09/06/23 04:00 Weight last 48 hrs Weight 183 lb 8 oz Weight 185 lb 7 oz Weight 179 lb Physical Exam 2 GI: OTHER: Abdomen is soft, nondistended, there is chest localized tenderness in the right lower quadrant, ostomy productive of gas and stool. Data 09/05/23 20:05 09/05/23 20:05 A&P Assessment and plan (1) Colostomy in place: (2) Small bowel obstruction: Plan I have evaluated the patient this morning, NG tube output has been minimal, her abdominal examination is pretty benign other than some pain in the right lower quadrant. Ostomy has gas and stool in it. This indicates is likely a partial small bowel obstruction. I consider that he is important to continue with decompression at least for 24 hours and then I can think about proceeding with a Gastrografin trial. I will start the patient on some antibiotics to prevent bacterial translocation from low intestinal transit. At the moment there is no indication for immediate surgical intervention. I will continue to follow-up with the patient on a twice daily basis. Patient should be ambulating is much as possible to stimulate intestinal transit. Attestations 2 Medical Necessity Statement*: Per medical team Coding Level of Care Code Acute Code for Chg Fwd Diagnoses Colostomy in place Z93.3 Small bowel obstruction K56.609
[2023-09-06] MEDS: piperacillin-tazobactam 3.375 GM in sodium chloride 0.9% (plus) 50 ML IV ×3 (07:35→22:24)
[2023-09-06] MEDS: ondansetron 2 mg/ML SDV 2 mL 4 MG IVP (07:41)
[2023-09-06] MEDS: heparin 5,000 unit/mL INJ 1 mL 5000 UNIT SUBCUT ×2 (11:06→22:24)
[2023-09-06 13:27] LABS: Basophils # 0.1 10^3/uL (0.0-0.1); Basophils % 0.6 %; Eosinophils # 0.1 10^3/uL (0.0-0.8); Eosinophils % 1.2 %; Hematocrit 40.2 % (36-47); Lymphocytes # 2.5 10^3/uL (0.8-4.8); Lymphocytes % 29.1 %; Mean Corpuscular HGB Conc 32.8 g/dL (30-55); Mean Corpuscular Hemoglobin 30.9 pg (27-33); Mean Corpuscular Volume 94.1 fl (85-98); Monocytes # 0.5 10^3/uL (0.2-0.9); Monocytes % 5.8 %; Neutrophils % 63.1 %; Nucleated Red Blood Cells % 0 %; Platelet Count 302 10^3/cmm (157-399); Red Blood Count 4.27 10^6/uL (3.85-5.65); Red Cell Distribution Width 13.1 % (12.1-15.1); White Blood Count 8.41 10^3/uL (3.29-11.43)
[2023-09-06 13:39] LABS: Procalcitonin 0.06 ng/mL (0-0.5); Thyroid Stimulating Hormone 2.05 uIU/mL (0.27-4.20)
[2023-09-06 13:54] LABS: Estmated Average Glucose 100; Hemoglobin A1C 5.1 % (4.0-6.0)
--- NOTE | 2023-09-06 14:08 | XR_ITS ---
WS: [id number] Portable AP upright chest, 09/06/2023 Clinical Data: NG tube placement Comparison: Portable chest, 09/05/2023 Findings: The nasogastric tube was placed into the esophagus and ends in the body of the stomach. XR/XR chest 1V portable [id number] Impression: Satisfactory insertion of nasogastric tube.
--- NOTE | 2023-09-06 14:39 | P.PN_ITS ---
Subjective 2 Subjective: Admitted overnight. On examination laying comfortably in bed, NG tube in place. Patient complaining of mild soreness at the back of the throat. States nausea is improving. No episodes of vomiting. Later in the day patient patient did have dislodged G-tube which was replaced Vitals/I&O/Wt Last Vital Signs Temp 97.5 F L 09/06/23 08:00 Pulse 72 09/06/23 08:00 Resp 20 H 09/06/23 11:10 BP 105/53 09/06/23 08:00 Pulse Ox 98 09/06/23 08:00 O2 Del Method Room Air 09/06/23 08:00 09/05/23 09/06/23 09/06/23 22:59 06:59 14:59 Intake Total 1050 / 1050 Balance 1050 / 1050 Weight last 48 hrs Weight 83.234 kg Weight 84.113 kg Weight 81.193 kg Physical Exam 2 Narrative: General: Alert oriented x3, anxious, emotional, NG tube in place HEENT: Normocephalic, atraumatic, EOMI, breathing room air,. Cardio: Regular rate rhythm, normal S1-S2 Respiratory: Good bilateral air entry, no wheezes no rhonchi appreciated GI: Abdomen soft, mild distention present, mild tenderness in right lower quadrant. Stool in ostomy bag, gas also present. Bowel sounds + Extremities: Within normal limits. Data 09/06/23 02:48 09/05/23 20:05 A&P Assessment and plan (1) Small bowel obstruction: (2) Nausea & vomiting: (3) Colostomy in place: (4) Obstructive sleep apnea: (5) High risk medication use: (6) Psychiatric care: (7) Nicotine dependence, cigarettes, with unspecified nicotine-induced disorders: (8) Psoriasis: Plan #Small bowel obstruction #History of colon cancer status post rectal resection and colostomy #History of psoriatic arthritis on immunosuppressive therapy #Obstructive sleep apnea Appreciate surgical recommendations. Plan for conservative treatment for now. NG tube management as per surgical team. IV fluids with normal saline at 75 cc/h. Zofran as needed, Protonix daily. Patient does have history of being on immunosuppressive therapy for psoriasis. Continue with Zosyn to prevent translocation of GI bacteria. For now no concerns for infection. History of psychiatric care: On multiple medication as an outpatient including paroxetine, Seroquel, BuSpar. Currently on hold because of n.p.o. status. Monitor electrolytes. Out of bed. Early ambulation. N.p.o. Heparin 5000 every 12 hourly for DVT prophylaxis Protonix OPD prophylaxis : Heparin SQ twice daily Attestations 2 Medical Necessity Statement*: Requires further hospitalization for management of small bowel obstruction in a patient with history of colon cancer s/p rectal resection and colostomy in place Diagnoses Small bowel obstruction K56.609 Nausea & vomiting R11.[address] Z93[address]3 Obstructive sleep apnea G47.33 High risk medication use Z79.899 Psychiatric care Nicotine dependence, cigarettes, with unspecified nicotine-induced disorders F17.219 Psoriasis L40.9
[2023-09-06] MEDS: LORazepam 2 mg/mL INJ 1 mL 0.5 MG IVP (15:09)
--- NOTE | 2023-09-06 15:09 | PC.SOCIAL ---
IMM updated IMM initialed and dated, copy given to patient and placed in chart.
[2023-09-06 16:44] LABS: Alanine Aminotransferase 9 U/L (0-33); Albumin Level 3.5 g/dL (3.5-5.2); Alkaline Phosphatase 60 U/L (35-105); Anion Gap 13.8 (5-19); Aspartate Amino Transferase 12 U/L (0-32); Blood Urea Nitrogen 11 mg/dL (6-20); Calcium 8.4 mg/dL (8.5-10.5); Carbon Dioxide 24 mmol/L (22-29); Chloride 106 mmol/L (98-107); Globulin 2.5 g/dL (1.3-4.6); Glomerular Filtration Rate 86.9 mL/min (90-130); Glucose 92 mg/dL (65-115); Iron 54 ug/dL (37-145); Osmolality Calculated 289 mOsm/kg (285-295); Percent Saturation 19.7 % (20-50); Potassium 3.8 mmol/L (3.5-5.1); Sodium 140 mmol/L (136-145); Total Bilirubin 0.5 mg/dL (0.15-1.2); Total Iron Binding Capacity 274 mcg/dl; Unsaturated Iron Binding 220 ug/dL (112-347)
[2023-09-06 16:49] LABS: Vitamin B12 166 pg/mL (232-1245)
[2023-09-06] MEDS: cyanocobalamin 1,000 mcg/mL SDV 1000 MCG IM (19:08)
[2023-09-07] VITALS (8 sets, daily range): BP systolic 101–133; BP diastolic 62–82; PULSE 57–65; RESP 15–20; TEMP 36.4–36.8; O2SAT 91–98; BMI 28.7
[2023-09-07 05:43] LABS: Basophils % 0.7 %; Eosinophils # 0.2 10^3/uL (0.0-0.8); Hematocrit 35.4 % (36-47); Lymphocytes # 1.7 10^3/uL (0.8-4.8); Mean Corpuscular HGB Conc 33.6 g/dL (30-55); Mean Corpuscular Volume 92.2 fl (85-98); Mean Platelet Volume 9.7 fL (7.4-10.4); Monocytes # 0.4 10^3/uL (0.2-0.9); Monocytes % 6.2 %; Neutrophils # 3.65 10^3/uL (1.8-7.7); Neutrophils % 60.8 %; Nucleated Red Blood Cells % 0 %; Platelet Count 223 10^3/cmm (157-399); Red Blood Count 3.84 10^6/uL (3.85-5.65); Red Cell Distribution Width 12.8 % (12.1-15.1)
[2023-09-07] MEDS: pantoprazole 40 mg SDV IVP (05:52)
[2023-09-07 06:01] LABS: Alanine Aminotransferase 7 U/L (0-33); Albumin Level 3.3 g/dL (3.5-5.2); Alkaline Phosphatase 63 U/L (35-105); Anion Gap 14.5 (5-19); Aspartate Amino Transferase 11 U/L (0-32); Blood Urea Nitrogen 9 mg/dL (6-20); Calcium 8.2 mg/dL (8.5-10.5); Carbon Dioxide 24 mmol/L (22-29); Chloride 105 mmol/L (98-107); Creatinine Clr Calc Pharmacy 104.1358; Globulin 2.5 g/dL (1.3-4.6); Glomerular Filtration Rate 86.9 mL/min (90-130); Glucose 83 mg/dL (65-115); Magnesium 1.9 mg/dL (1.7-2.3); Osmolality Calculated 288 mOsm/kg (285-295); Potassium 3.5 mmol/L (3.5-5.1); Sodium 140 mmol/L (136-145); Total Bilirubin 0.5 mg/dL (0.15-1.2); Total Protein 5.8 g/dL (6.6-8.7)
[2023-09-07 06:04] LABS: Chol HDL Ratio 3.96 mg/dL (0.0-4.40); Cholesterol 190 mg/dL (0-200); HDL Cholesterol 48 mg/dL (60-100); LDL Cholesterol Calculated 101 mg/dL (50-129); Lactate (Lactic Acid level) 0.9 mmol/L (0.5-2.2); Triglycerides 207 mg/dL (0-150); VLDL Cholestrol Calculation 41 mg/dL (0-30)
[2023-09-07] MEDS: piperacillin-tazobactam 3.375 GM in sodium chloride 0.9% (plus) 50 ML IV ×2 (06:19→16:58)
[2023-09-07 06:29] LABS: Folate Level 18.8 ng/mL (4.8-37.3)
[2023-09-07] MEDS: morphine 4 mg/mL SDV 1 mL 2 MG IVP ×2 (08:43→13:12)
[2023-09-07] MEDS: heparin 5,000 unit/mL INJ 1 mL 5000 UNIT SUBCUT ×2 (08:48→20:17)
[2023-09-07] MEDS: cyanocobalamin 1,000 mcg/mL SDV 1000 MCG IM (08:48)
[2023-09-07] MEDS: sodium chloride 0.9% 1,000 ML 125 ML IV (10:54)
--- NOTE | 2023-09-07 11:35 | P.PN_ITS ---
Subjective 2 Subjective: Patient is hospital day 2 with SBO, has a history of ostomy after low anterior resection for colon cancer She is doing better still complains some pain in the right lower quadrant, NG output has been minimal and ostomy is quite productive of gas she has been repaired multiple times during the day. Vitals/I&O/Wt Last Vital Signs Temp 97.5 F L 09/07/23 07:44 Pulse 63 09/07/23 07:44 Resp 16 09/07/23 08:43 BP 115/67 09/07/23 07:44 Pulse Ox 95 09/07/23 07:44 O2 Del Method Room Air 09/07/23 07:44 09/06/23 09/07/23 09/07/23 22:59 06:59 14:59 Intake Total 1050 / 2100 1050 / 3150 50 / 50 Output Total 100 / 100 Balance 1050 / 2100 950 / 3050 50 / 50 Weight last 48 hrs Weight 189 lb 1 oz Weight 183 lb 8 oz Weight 185 lb 7 oz Weight 179 lb Physical Exam 2 GI: OTHER: Abdominal exam is overall benign, abdomen soft nontender except on the right lower quadrant and ostomy is productive of gas in the stool. Data 09/07/23 04:47 09/07/23 04:47 Micro: Microbiology 09/05/23 21:13 Bacterial Antigens - Final Urine Kidney A&P Assessment and plan (1) Colostomy in place: (2) Small bowel obstruction: Plan Patient appears to have a partial small bowel obstruction as her clinical picture shows evidence of good passage of gas through the area of obstruction as evidenced by constant production of gas in the ostomy, lactate level has been normal white count is normal and there is no other concerning features for the possibility of bowel ischemia. At this point I will proceed with a Gastrografin trial, 120 mL of Gastrografin diluted in 66 mL of water were administered through the NG tube at 11 AM. We will obtain an abdomen x-ray at 4 PM and another 1 tomorrow morning. Depending on the results of these studies we will decide on the need for additional intervention. I have instructed patient to ambulate as much as possible to stimulate GI motility. She agrees. Attestations 2 Medical Necessity Statement*: Per medical team Coding Level of Care Code Acute Code for Chg Fwd Diagnoses Colostomy in place Z93.3 Small bowel obstruction K56.609
--- NOTE | 2023-09-07 12:31 | P.PN_ITS ---
Subjective 2 Subjective: No acute events overnight. Today morning patient seen with NG tube in place. Patient is significantly emotional and complaining of pain in the back of her throat and her abdomen. Complaining of nausea but no more vomiting. Ostomy containing gas but no bowel movement. Vitals/I&O/Wt Last Vital Signs Temp 97.9 F 09/07/23 11:15 Pulse 57 L 09/07/23 11:15 Resp 17 09/07/23 11:15 BP 117/74 09/07/23 11:15 Pulse Ox 96 09/07/23 11:15 O2 Del Method Room Air 09/07/23 11:15 09/06/23 09/07/23 09/07/23 22:59 06:59 14:59 Intake Total 1050 / 2100 1050 / 3150 50 / 50 Output Total 100 / 100 Balance 1050 / 2100 950 / 3050 50 / 50 Weight last 48 hrs Weight 85.757 kg Weight 83.234 kg Weight 84.113 kg Weight 81.193 kg Physical Exam 2 Narrative: General: Alert oriented x3, anxious, emotional, NG tube in place HEENT: Normocephalic, atraumatic, EOMI, breathing room air. Cardio: Regular rate rhythm, normal S1-S2 Respiratory: Good bilateral air entry, no wheezes no rhonchi appreciated GI: Abdomen soft, mild distention present, mild tenderness in right lower quadrant. gas in ostomy. Bowel sounds + Extremities: Within normal limits. Data 09/07/23 04:47 09/07/23 04:47 Micro: Microbiology 09/05/23 21:13 Bacterial Antigens - Final Urine Kidney A&P Assessment and plan (1) Small bowel obstruction: (2) Nausea & vomiting: (3) Colostomy in place: (4) Obstructive sleep apnea: (5) High risk medication use: (6) Psychiatric care: (7) Nicotine dependence, cigarettes, with unspecified nicotine-induced disorders: (8) Psoriasis: Plan #Small bowel obstruction #History of colon cancer status post rectal resection and colostomy #History of psoriatic arthritis on immunosuppressive therapy #Obstructive sleep apnea Appreciate surgical recommendations. Plan for conservative treatment for now. NG tube management as per surgical team. Gastrografin study today. IV fluids with normal saline at 75 cc/h. Zofran as needed, Protonix daily. Patient does have history of being on immunosuppressive therapy for psoriasis. Continue with Zosyn to prevent translocation of GI bacteria. For now no concerns for infection. History of psychiatric care: On multiple medication as an outpatient including paroxetine, Seroquel, BuSpar. Currently on hold because of n.p.o. status. Continue with Ativan 0.5 IV every 8 hours as needed. Monitor electrolytes. Out of bed. Early ambulation. Vitamin B12 deficiency: Continue with daily vitamin B12 IM shots. Will Transition to oral vitamin B12 supplementation on discharge. N.p.o. Heparin 5000 every 12 hourly for DVT prophylaxis Protonix OPD prophylaxis Attestations 2 Medical Necessity Statement*: Requires further hospitalization for management of persistent small bowel obstruction in a patient with history of colon cancer post rectal resection and colostomy Diagnoses Small bowel obstruction K56.609 Nausea & vomiting R11.[address] Z93[address]3 Obstructive sleep apnea G47.33 High risk medication use Z79.899 Psychiatric care Nicotine dependence, cigarettes, with unspecified nicotine-induced disorders F17.219 Psoriasis L40.9
[2023-09-07] MEDS: LORazepam 2 mg/mL INJ 1 mL 0.5 MG IVP (15:25)
--- NOTE | 2023-09-07 16:30 | XRR_ITS ---
PROCEDURE INFORMATION: Exam: XR Abdomen Exam date and time: 09/07/2023 4:09 PM Age: 53 years old Clinical indication: Condition or disease; Other: Small bowel gastrografin trial; Prior surgery; Surgery date: 1-6 months; Surgery type: Colostomy, bowel anastamosis TECHNIQUE: Imaging protocol: Radiologic exam of the abdomen. Views: Frontal supine view of the abdomen. 1 View. COMPARISON: CT kidney stone [id number] 09/05/2023 8:34 PM FINDINGS: Tubes, catheters and devices: Nasogastric tube extends to the mid stomach. Gastrointestinal tract: Residual contrast material is present in the colon. No dilated bowel evident. Left lower quadrant colostomy. No organomegaly or significant pathologic calcification. Vasculature: Pelvic calcifications most likely represent phleboliths. Bones/joints: Unremarkable. XR/XR abdomen 1V* [id number] IMPRESSION: No acute pathology. NG tube in place.
--- NOTE | 2023-09-07 17:02 | PM.MISC ---
Miscellaneous Note Purpose of Documentation: Update on patient care Note: Gastrografin trial was done today, after this patient had had very good output from the ostomy. In addition x-ray of the abdomen was done this afternoon, is not read per the radiologist yet but my personal interpretation of the imaging is that the contrast is now in the colon and there is no evidence of bowel dilation. If this interpretation is verifyed by final radiologic GI report we will proceed with NG removal and advancement of diet to clear liquid diet. Patient will also require schedule MiraLAX in order to prevent further episodes of bowel obstruction and she will be slowly advanced to GI soft diet, she should be discharged from the hospital on low residue diet.
--- NOTE | 2023-09-07 19:28 | PC.NURSE ---
at approx. 1315 pt requested pain medication, pt received her ordered dose. she also stated her colostomy was getting full and she needed to go into the bathroom to empty it. her roommate was using the bathroom at this time. she asked for the bedside commode, this nurse moved it to her bedside. this nurse asked if she needed assistance with it and she refused. she did request colostomy supplies as her supplies were at home. this nurse returned with supplies and again asked pt if she needed any assistance, pt refused. at approx. 1415 this nurse went back into the room to check on pt after told she was having problems with her colostomy bag. this nurse enters room and pt is upset that no one in her family was answering her calls for them to bring her colostomy supplies to her. she the stated her friend was going to bring them to her. i asked her what she would like to cover her stoma with until they arrived with her supplies. pt stated her bag was still on her stoma. this nurse offered chucks to her in case it started to leak, pt accepted. this nurse also offered her prn ativan, pt declined at this time. she also declined a new gown until after her colostomy bag had been changed.
--- NOTE | 2023-09-07 19:35 | PC.NURSE ---
NG tube removed per physician orders.
[2023-09-07] MEDS: quetiapine 300 mg Tablet DOBHOFF (20:17)
[2023-09-07] MEDS: gabapentin 300 mg Capsule 600 MG PO (20:17)
[2023-09-07] MEDS: ropinirole 2 mg Tablet 4 MG PO (20:17)
[2023-09-08] VITALS: BP 101/61; PULSE 70; RESP 18; TEMP 36.9; O2SAT 93
[2023-09-08] MEDS: sodium chloride 0.9% 1,000 ML 125 ML IV ×2 (00:20→08:23)
[2023-09-08] MEDS: piperacillin-tazobactam 3.375 GM in sodium chloride 0.9% (plus) 50 ML IV ×2 (00:25→08:22)
[2023-09-08 04:00] VITALS: BP 100/60; PULSE 71; RESP 18; TEMP 36.6; O2SAT 94
[2023-09-08 04:40] VITALS: BMI 28.7
[2023-09-08 05:02] LABS: Eosinophils # 0.2 10^3/uL (0.0-0.8); Eosinophils % 4.5 %; Hematocrit 34.3 % (36-47); Lymphocytes # 1.6 10^3/uL (0.8-4.8); Lymphocytes % 38.8 %; Mean Corpuscular HGB Conc 34.7 g/dL (30-55); Mean Corpuscular Hemoglobin 31.2 pg (27-33); Mean Platelet Volume 9.7 fL (7.4-10.4); Monocytes # 0.2 10^3/uL (0.2-0.9); Neutrophils # 1.97 10^3/uL (1.8-7.7); Neutrophils % 49.4 %; Nucleated Red Blood Cells % 0 %; Platelet Count 211 10^3/cmm (157-399); Red Blood Count 3.81 10^6/uL (3.85-5.65); Red Cell Distribution Width 12.4 % (12.1-15.1); White Blood Count 3.99 10^3/uL (3.29-11.43)
[2023-09-08] MEDS: pantoprazole 40 mg SDV IVP (05:09)
[2023-09-08 05:24] LABS: Alanine Aminotransferase < 5 U/L (0-33); Albumin Level 3.4 g/dL (3.5-5.2); Alkaline Phosphatase 59 U/L (35-105); Anion Gap 15.6 (5-19); Aspartate Amino Transferase 11 U/L (0-32); Blood Urea Nitrogen 5 mg/dL (6-20); Calcium 8.3 mg/dL (8.5-10.5); Carbon Dioxide 23 mmol/L (22-29); Chloride 106 mmol/L (98-107); Creatinine Clr Calc Pharmacy 104.1358; Globulin 2.5 g/dL (1.3-4.6); Glomerular Filtration Rate 86.9 mL/min (90-130); Glucose 101 mg/dL (65-115); Osmolality Calculated 289 mOsm/kg (285-295); Potassium 3.6 mmol/L (3.5-5.1); Sodium 141 mmol/L (136-145); Total Bilirubin 0.4 mg/dL (0.15-1.2); Total Protein 5.9 g/dL (6.6-8.7)
[2023-09-08 05:29] LABS: Magnesium 1.9 mg/dL (1.7-2.3)
--- NOTE | 2023-09-08 07:56 | P.PN_ITS ---
Subjective 2 Subjective: Is a 53-year-old female who is in follow-up for small bowel obstruction in the setting of possible additions from previous intra-abdominal surgery. Gastrografin trial was done yesterday, Gastrografin trial results were positive stool was noted in the back and contrast at 4 hours was completely in the colon. No evidence of SBO on follow-up imaging. Patient doing okay abdominal pain has significantly improved no nausea no vomit. Vitals/I&O/Wt Last Vital Signs Temp 97.9 F 09/08/23 04:00 Pulse 71 09/08/23 04:00 Resp 18 09/08/23 04:00 BP 100/60 09/08/23 04:00 Pulse Ox 94 09/08/23 04:00 O2 Del Method Room Air 09/08/23 04:00 09/07/23 09/08/23 09/08/23 22:59 06:59 14:59 Intake Total 1290 / 1340 170 / 1510 1000 / 1000 Output Total 1200 / 1200 Balance 90 / 140 170 / 310 1000 / 1000 Weight last 48 hrs Weight 189 lb 1 oz Weight 189 lb 1 oz Physical Exam 2 Narrative: General : Patient is well developed , no acute distress, oriented x3 Head : Normal cephalic, a-traumatic. Nose : Mucous membranes are without erythema. Lungs : Equal chest rise bilaterally, no use of accessory muscles, trachea is midline. CV : Rate and rhythm are normal. Abdomen : Soft, ND, NT, no g/r/m, ostomy productive of gas and stool Extremities : No edema. Upper extremities are normal bilaterally. Back : non-tender to palpation, no CVA tenderness. Data 09/08/23 04:24 09/08/23 04:24 Micro: Microbiology 09/05/23 21:13 Bacterial Antigens - Final Urine Kidney A&P Assessment and plan (1) Colostomy in place: (2) Small bowel obstruction: Plan Patient is small bowel obstruction has resolved, as evidenced by patient clinical progression and imaging findings. Vital signs are normal, laboratory workup is normal. Patient is cleared from the general surgery standpoint to be advanced to low residue diet, once tolerated she can be discharged to continue low residue diet at home and she should receive once a day MiraLAX 17 g in the long-term to prevent further episodes of SBO. Patient shows understanding agrees with this assessment. Attestations 2 Medical Necessity Statement*: Per medical team Coding Level of Care Code Acute Code for Chg Fwd Diagnoses Colostomy in place Z93.3 Small bowel obstruction K56.609
[2023-09-08 08:00] VITALS: BP 115/75; PULSE 64; RESP 18; TEMP 36.5; O2SAT 96
[2023-09-08] MEDS: BuSPIRONE 10 mg Tablet 15 MG PO (08:21)
[2023-09-08] MEDS: PARoxetine 20 mg Tablet 40 MG PO (08:21)
[2023-09-08] MEDS: heparin 5,000 unit/mL INJ 1 mL 5000 UNIT SUBCUT (08:21)
[2023-09-08] MEDS: polyethylene glycol 3350 Pkt 17 gm PO (08:22)
[2023-09-08] MEDS: cyanocobalamin 1,000 mcg/mL SDV 1000 MCG IM (08:22)
[2023-09-08 11:47] VITALS: BP 126/81; PULSE 64; RESP 18; TEMP 36.4; O2SAT 95
--- NOTE | 2023-09-08 14:19 | PM.DCS ---
Discharge Providers Date of Admission: 09/05/23 22:23 Date of Discharge: September 08, 2023 Attending Provider at Admission: Matilda Chawla MD Attending Provider at Discharge: Shekhar Packer MD Consults: Surgery: Dr. Genao Primary Care Provider: Brii Borden NP Diagnoses at Discharge Discharge Diagnosis (1) Colostomy in place: Status: Acute (2) Small bowel obstruction: Status: Acute Reason for Visit Reason for Visit: ABD PAIN Brief History: History as per HPI: Maura Hermosillo is a 53 year old female With past medical history of rectal cancer, PE, restless leg syndrome, EDGARD, psoriatic arthritis, degenerative disc disease, resection of rectum with diverting colostomy presented to the hospital today for complaint of severe nausea vomiting for the last 2 days and interval development of abdominal pain since this morning. She is also been experiencing diarrhea which is watery. She states she has been having loose stools daily 2-3 times a day however today has only emptied her colostomy bag once. She is unable to tell me for sure if this amount of stool burden is normal for her or not. She says she is having abdominal pain as we speak and is uncomfortable. NG tube draining oral secretions and water which she had earlier in the ER. NG tube was to low intermittent suction at this time. She says she had rectal cancer 15 years ago and thereafter had a resection done. As per her she is cancer free at this time. She has never had a bowel obstruction before she states. Hospital Course Hospital Course Patient was admitted to the hospital further evaluation and management. Surgery was consulted from the ER. She underwent CT abdomen pelvis on admission which ruled out any perforation bowel consistent with small bowel obstruction. She was treated conservatively with NG tube placement, IV hydration. Eventually patient started to have flatus in the ostomy bag. She underwent Gastrografin study on 09/06 which showed resolution of small bowel obstruction. She was treated with laxative. Patient has tolerated mechanical soft diet well and has been discharged in hemodynamically stable condition on daily laxative, multiple small meals. She is advised to continue taking mechanical soft diet for next few days and then advance gradually to regular diet. During hospitalization she was also found to be deficient for vitamin B12 for which she will continue to take oral vitamin B12 daily. Physical Exam Narrative: General: Alert oriented x3, no acute distress HEENT: Normocephalic, atraumatic, EOMI, breathing room air. Cardio: Regular rate rhythm, normal S1-S2 Respiratory: Good bilateral air entry, no wheezes no rhonchi appreciated GI: Abdomen soft, nontender, gas in ostomy. Bowel sounds + Extremities: Within normal limits. Discharge Data Studies Completed and Pending Completed Studies During Hospitalization Category Date Time Status CT kidney stone [id number] Stat Cat Scan 09/05/23 20:10 Completed CXRP [XR chest 1V portable [id number]] Stat Exams 09/05/23 23:07 Completed CXRP [XR chest 1V portable [id number]] Stat Exams 09/06/23 14:08 Completed XR abdomen 1V* [id number] Routine Exams 09/07/23 16:30 Completed Pending at discharge Category Date Time Status MAG [Magnesium] AM LABS Lab 09/09/23 04:00 Ordered Radiology Impressions Abdomen/Pelvis CT 09/05/23 20:10 IMPRESSION: 1. Exam demonstrates features of distal small bowel obstruction with transition point in the right lower quadrant, likely relating to adhesions. There is low volume free fluid in the peritoneal cavity but no free air. No bowel wall pneumatosis or portal venous gas. 2. There is segmental demineralization of the sacrum and perirectal soft tissue thickening which may reflect prior radiotherapy. 3. No evidence of urolithiasis. ADDENDUM: 09/05/23 [id number] THIS REPORT CONTAINS FINDINGS THAT MAY BE CRITICAL TO PATIENT CARE. The findings were verbally communicated via telephone conference with AFRICA DELANEY at 9:54 PM CDT on 09/05/2023. The findings were acknowledged and understood. Chest X-Ray 09/06/23 14:08 Impression: Satisfactory insertion of nasogastric tube. Abdomen X-Ray 09/07/23 16:30 IMPRESSION: No acute pathology. NG tube in place. Laboratory Results WBC 3.99 10^3/uL (3.29-11.43) 09/08/23 04:24 RBC 3.81 10^6/uL (3.85-5.65) L 09/08/23 04:24 Hgb 11.90 g/dL (11.27-16.99) 09/08/23 04:24 Hct 34.3 % (36-47) L 09/08/23 04:24 MCV 90.0 fl (85-98) 09/08/23 04:24 MCH 31.2 pg (27-33) 09/08/23 04:24 MCHC 34.7 g/dL (30-55) 09/08/23 04:24 RDW 12.4 % (12.1-15.1) 09/08/23 04:24 Plt Count 211 10^3/cmm (157-399) 09/08/23 04:24 MPV 9.7 fL (7.4-10.4) 09/08/23 04:24 Neut % (Auto) 49.4 % 09/08/23 04:24 Lymph % (Auto) 38.8 % 09/08/23 04:24 [place] % (Auto) 6.0 % 09/08/23 04:24 Eos % (Auto) 4.5 % 09/08/23 04:24 Baso % (Auto) 1.0 % 09/08/23 04:24 Neut # (Auto) 1.97 10^3/uL (1.8-7.7) 09/08/23 04:24 Lymph # (Auto) 1.6 10^3/uL (0.8-4.8) 09/08/23 04:24 [place] # (Auto) 0.2 10^3/uL (0.2-0.9) 09/08/23 04:24 Eos # (Auto) 0.2 10^3/uL (0.0-0.8) 09/08/23 04:24 Baso # (Auto) 0.0 10^3/uL (0.0-0.1) 09/08/23 04:24 Nucleated RBC % (auto) 0 % 09/08/23 04:24 Nucleated RBCs # 0.0 /100WBC 09/08/23 04:24 Sodium 141 mmol/L (136-145) 09/08/23 04:24 Potassium 3.6 mmol/L (3.5-5.1) 09/08/23 04:24 Chloride 106 mmol/L (98-107) 09/08/23 04:24 Carbon Dioxide 23 mmol/L (22-29) 09/08/23 04:24 Anion Gap 15.6 (5-19) 09/08/23 04:24 BUN 5 mg/dL (6-20) L 09/08/23 04:24 Creatinine 0.7 mg/dL (0.5-0.9) 09/08/23 04:24 GFR Calculation 86.9 mL/min (90-130) L 09/08/23 04:24 Glucose 101 mg/dL (65-115) 09/08/23 04:24 Estimat Average Glucose 100 09/06/23 02:48 Hemoglobin A1c 5.1 % (4.0-6.0) 09/06/23 02:48 Calculated Osmolality 289 mOsm/kg (285-295) 09/08/23 04:24 Lactic Acid 1.4 mmol/L (0.5-2.2) 09/06/23 02:49 Lactate 0.9 mmol/L (0.5-2.2) 09/07/23 04:47 Calcium 8.3 mg/dL (8.5-10.5) L 09/08/23 04:24 Magnesium 1.9 mg/dL (1.7-2.3) 09/08/23 04:24 Iron 54 ug/dL (37-145) 09/06/23 15:28 TIBC 274 mcg/dl 09/06/23 15:28 % Saturation 19.7 % (20-50) L 09/06/23 15:28 Unsat Iron Binding 220 ug/dL (112-347) 09/06/23 15:28 Total Bilirubin 0.4 mg/dL (0.15-1.2) 09/08/23 04:24 AST 11 U/L (0-32) 09/08/23 04:24 ALT < 5 U/L (0-33) 09/08/23 04:24 Alkaline Phosphatase 59 U/L (35-105) 09/08/23 04:24 C-Reactive Protein 3.0 mg/L (0.0-4.9) 09/05/23 20:05 Total Protein 5.9 g/dL (6.6-8.7) L 09/08/23 04:24 Albumin 3.4 g/dL (3.5-5.2) L 09/08/23 04:24 Globulin 2.5 g/dL (1.3-4.6) 09/08/23 04:24 Triglycerides 207 mg/dL (0-150) H 09/07/23 04:47 Cholesterol 190 mg/dL (0-200) 09/07/23 04:47 LDL Cholesterol, Calc 101 mg/dL (50-129) 09/07/23 04:47 Total VLDL Cholesterol 41 mg/dL (0-30) H 09/07/23 04:47 HDL Cholesterol 48 mg/dL (60-100) L 09/07/23 04:47 Cholesterol/HDL Ratio 3.96 mg/dL (0.0-4.40) 09/07/23 04:47 Lipase 13 U/L (13-60) 09/05/23 20:05 Vitamin B12 166 pg/mL (232-1245) L 09/06/23 15:28 Folate 18.8 ng/mL (4.8-37.3) 09/07/23 04:47 Procalcitonin 0.06 ng/mL (0-0.5) 09/06/23 02:49 TSH 2.05 uIU/mL (0.27-4.20) 09/06/23 02:48 Urine Color Yellow (Yellow) 09/05/23 21:13 Urine Appearance Clear (CLEAR) 09/05/23 21:13 Urine pH 6 (5-7) 09/05/23 21:13 Ur Specific [place] 1.015 (1.005-1.030) 09/05/23 21:13 Urine Protein Neg (Negative) 09/05/23 21:13 Urine Glucose (UA) Norm (Normal) 09/05/23 21:13 Urine Ketones Negative (Negative) 09/05/23 21:13 Urine Blood Neg (Negative) 09/05/23 21:13 Urine Nitrate Negative (Negative) 09/05/23 21:13 Urine Bilirubin Neg (Negative) 09/05/23 21:13 Urine Urobilinogen Neg mg/dL (Negative) 09/05/23 21:13 Ur Leukocyte Esterase Negative (Negative) 09/05/23 21:13 Vitals Last Vital Signs Temp 97.6 F 09/08/23 11:47 Pulse 64 09/08/23 11:47 Resp 18 09/08/23 11:47 BP 126/81 09/08/23 11:47 Pulse Ox 95 09/08/23 11:47 O2 Del Method Room Air 09/08/23 11:47 Discharge Plan Discharge Patient Disposition: Home Condition: Stable Prescriptions: New polyethylene glycol 3350 17 gram Powder In Packet 17 g PO DAILY Qty: 100 0RF cyanocobalamin (vitamin B-12) 5,000 mcg capsule 5,000 mcg PO DAILY Qty: 30 0RF Continued albuterol sulfate 90 mcg/actuation HFA aerosol inhaler 1 inh inhalation QID PRN (Reason: shortness of breath or wheezing) Qty: 8.5 5RF Trelegy Ellipta 100-62.5-25 mcg blister with device 1 inh inhalation DAILY Qty: 60 3RF folic acid 1 mg tablet 1 mg PO DAILY Qty: 90 2RF buspirone 15 mg tablet 15 mg PO BID Qty: 60 5RF quetiapine 300 mg tablet 300 mg PO BEDTIME Qty: 30 5RF Rx Instructions: take with 200mg ropinirole 4 mg tablet 4 mg PO BEDTIME Qty: 30 5RF Rx Instructions: take two hours before bed gabapentin 600 mg tablet 600 mg PO BEDTIME Qty: 30 5RF paroxetine HCl [Paxil] 40 mg tablet 40 mg PO DAILY Qty: 30 4RF (DME) insulin syringe-needle U-100 [TRUEplus Insulin] 1 mL 30 gauge x 5/16 syringe See Rx Instructions .ROUTE .MEDSUPPLY Qty: 100 2RF Rx Instructions: As directed quetiapine 200 mg tablet See Rx Instructions .ROUTE .COMPLEX Qty: 30 5RF Dose Instruction: TAKE ONE TABLET BY MOUTH DAILY Rx Instructions: TAKE ONE TABLET BY MOUTH DAILY (DME) Colostomy appliances and supplies See Rx Instructions .Route .MEDSUPPLY Qty: 100 0RF Rx Instructions: As directed methotrexate sodium 25 mg/mL solution 25 mg SUBCUT Q7D Qty: 10 2RF Rx Instructions: on fridays Orencia 125 mg/mL syringe See Rx Instructions .ROUTE .COMPLEX Qty: 4 1RF Dose Instruction: inject 125mg SUBCUTANEOUSLY ONCE a week Rx Instructions: inject 125mg SUBCUTANEOUSLY ONCE a week (DME) Monoject TB Safety Syringe 1 mL 25 gauge x 5/8 syringe See Rx Instructions .ROUTE .MEDSUPPLY Qty: 50 1RF Rx Instructions: As directed Discharge Orders: Discharge Order (Routine); Ordered 09/08/23 Ordered By: Shekhar Packer Referrals: Brii Borden NP [Primary Care Provider] - 09/13/23 10:00 am Discharge Diet: Advance as tolerated and Soft Mechanical Discharge Activity: Resume usual activity and Increase activity as tolerated Patient Instructions: Opioid Safety Activity Restrictions/Additional Instructions: Continue mechanical soft diet for the next few days and then advance to regular diet. Take MiraLAX daily. Discharge Attestations Time Spent in Discharge Care*: greater than 30 min Specific Discharge Activities: educating patient, discussing with pcp/other providers, discussing with geriatric case manager/social workers/dc planners, documenting/other paperwork and evaluating patient/reviewing data Status at Discharge: Cognitive status at discharge: cognitively intact, Behavioral status at discharge: can be uncooperative, Functional status at discharge: uses cane/walker, Overall status at discharge: patient is progressing back to baseline Quality Metrics Clinical Quality Measures [ No reported AMI, CVA or VTE this stay] Coding Level of Care Code 99438 Total time (in minutes) for Discharge: [address] Z93.3 Small bowel obstruction K56.609
--- NOTE | 2023-09-08 15:15 | PC.SOCIAL ---
IMM updated IMM dated and initialed, copy given to patient and copy placed in chart.
== END 2023-09-08 15:34 | disposition home or self-care (01) | DRG 389 ==
LOC: ER 22:33 → MEDSURG 23:16
PROVIDERS: Surgery; Admitting Provider Internal Medicine; Emergency Provider Emergency Medicine; Visit Provider Student in an Organized Health Care Education/Training Program
DX: K56.50 Intestinal adhesions [bands], unspecified as to partial versus complete obstruction (principal); D84.821 Immunodeficiency due to drugs; Z93.3 Colostomy status; Z79.01 Long term (current) use of anticoagulants; F17.210 Nicotine dependence, cigarettes, uncomplicated; E53.8 Deficiency of other specified B group vitamins; Z85.048 Personal history of other malignant neoplasm of rectum, rectosigmoid junction, and anus; Z86.711 Personal history of pulmonary embolism; L40.50 Arthropathic psoriasis, unspecified; Z79.631 Long term (current) use of antimetabolite agent; G25.81 Restless legs syndrome; M51.16 Intervertebral disc disorders with radiculopathy, lumbar region; G62.9 Polyneuropathy, unspecified; F43.12 Post-traumatic stress disorder, chronic; N18.9 Chronic kidney disease, unspecified
CPT/HCPCS: 36415; 71045; 74018; 74176; 80053; 80061; 81003; 82607; 82746; 83036; 83540; 83550; 83605; 83690; 83735; 84145; 84443; 85025; 86140; 86403; 96372; 96374; 96375; 96376; 99285; C9113; J1170; J1644; J1885; J2060; J2270; J2405; J2543; J3420; J7030

== ENCOUNTER 2023-09-27 16:03 | Inpatient (IN) | payer MEDICARE, MEDICAID, SELFPAY ==
[2023-09-27] VITALS (11 sets, daily range): BP systolic 112–138; BP diastolic 66–82; PULSE 65–73; RESP 16–20; TEMP 36.6–36.7; O2SAT 91–98; BMI 27.5; BMI 31.5
--- NOTE | 2023-09-27 16:07 | CTR_ITS ---
PROCEDURE INFORMATION: Exam: CT Abdomen And Pelvis With Contrast Exam date and time: 09/27/2023 4:33 PM Age: 53 years old Clinical indication: Abdominal pain; Prior surgery; Surgery date: 6+ months; Surgery type: Colostomy, hyst, rectum; Additional info: Abd pain TECHNIQUE: Imaging protocol: Computed tomography of the abdomen and pelvis with contrast. Radiation optimization: All CT scans at this facility use at least one of these dose optimization techniques: automated exposure control; mA and/or kV adjustment per patient size (includes targeted exams where dose is matched to clinical indication); or iterative reconstruction. Contrast material: OMNI 350; Contrast volume: 100 ml; Contrast route: INTRAVENOUS (IV); COMPARISON: 1. CT kidney stone [id number] 09/05/2023 8:[address] abdomen pelvis w con* [id number] 06/08/2023 2:41 AM RADIATION DOSE METRICS: Total DLP (mGy-cm): 791 FINDINGS: Lungs: Lung bases are clear. Liver: There is no focal abnormality within the liver. Gallbladder and biliary ducts: The gallbladder is normal. There is no common bile duct dilation. Pancreas: The pancreas is normal. Spleen: The spleen is normal. Adrenal glands: The adrenal glands are normal. Kidneys and ureters: The left kidney is normal. There is moderate right hydronephrosis. There is dilatation of the right ureter down to the level of the right mid pelvis where it is crossed by some dilated small bowel loops. There is no evidence of renal or ureteral calcifications. Stomach and bowel: Resection rectosigmoid colon again identified. There is no evidence of colitis/diverticulitis. There is colostomy in the left lower quadrant of the abdomen unchanged. There are moderately dilated fluid-filled bowel loops in the mid abdomen. Distal ileum is nondilated. These findings are consistent with small bowel obstruction. There is a moderate fluid-filled distension of the stomach. Appendix: Not identified Intraperitoneal space: Unremarkable. No free air. No significant fluid collection. Vasculature: Unremarkable. No abdominal aortic aneurysm. Lymph nodes: Unremarkable. No enlarged lymph nodes. Urinary bladder: Unremarkable as visualized. Reproductive: There has been a hysterectomy. Bones/joints: There is scoliosis of the lumbar spine concave to the right. The lumbar spine demonstrates moderate degenerative changes at multiple levels. There is no evidence of acute fracture. Soft tissues: Unremarkable. CT/CT abdomen pelvis w con* [id number] IMPRESSION: 1. Small bowel obstruction 2. Right hydronephrosis and hydroureter of uncertain etiology.
--- NOTE | 2023-09-27 16:08 | ED_ITS ---
HPI - Abdominal Pain 2 General: Chief Complaint: Abdominal Pain Stated Complaint: abd pain n/v Time Seen by Provider: 09/27/23 16:05 Source: patient and EMS Mode of arrival: EMS Limitations: no limitations History of Present Illness: 53-year-old female states she been havin g abdominal pain and vomiting throughout the day. States she had a history of small bowel obstructions and this feels the same. States she has not had a bowel movement or passing gas states her pain is diffuse in nature rates it an 8 out of 10. She denies any worse improved factors Associated Symptoms: Reports nausea and vomiting; Denies chills, diarrhea and fever(s) Review of Systems 2 Const: Denies: fever(s), chills, body aches or change in appetite ENMT: Denies: throat pain or dental pain Card: Denies: chest pain Resp: Denies: dyspnea GI: Reports: abdominal pain, nausea and vomiting; Denies: diarrhea Musc: Denies: neck pain or back pain Skin/Breast: Denies: rash Neuro: Denies: headache(s) PFSH ED 2 PFSH: Medical History (Updated 09/27/23 @ 17:43 by Samuel Rojas MD) B12 deficiency Cocaine use disorder, severe, in sustained remission Acute kidney injury Loss of hair DDD (degenerative disc disease), lumbar Lumbar spondylosis Hydronephrosis of right kidney Rectal cancer Cancer free for 14 years. Lumbar radiculitis Peripheral neuropathy Obstructive sleep apnea Restless leg syndrome Chronic post-traumatic stress disorder Pulmonary embolism CKD (chronic kidney disease) Osteoarthritis of knees, bilateral Immunosuppression Psoriasis Psoriatic arthritis Surgical History History of resection of rectum H/O: hysterectomy Due to fibroids. H/O tubal ligation Colostomy in place Family History Other Cancer Social History Smoking and tobacco/nicotine status: current every day tobacco/nicotine user cigarettes Packs smoked per day: 0.5 Years cigarettes smoked: 41 [ Other cigarette details: Pt reports smoking at age 3] Alcohol intake: current Alcohol intake frequency: holidays/special occasions only Substance/Drug Use: never Lives independently: Yes Household members: none Marital status: Legally Current occupational status: disabled Do you think of yourself as: Straight/Heterosexual Current gender identity: Female Physical Exam 2 Const: COMMON NORMALS: no acute distress, patient oriented x3 and healthy appearing HENMT: COMMON NORMALS: normocephalic and atraumatic HEAD & SCALP: n ormocephalic and atraumatic Neck/C-Spine: COMMON NORMALS: full ROM and supple Chest: COMMONS NORMALS: normal inspection of the chest and normal palpation of entire chest wall Resp: COMMON NORMALS: normal respiratory effort, No retractions, No use of accessory muscles and clear to auscultation bilaterally AUSCULTATION: clear to auscultation bilaterally Cardio: COMMON NORMALS: regular rate, regular rhythm and No murmurs present (Cardio) RATE: regular rate RHYTHM: regular rhythm GI: OTHER: Diffuse tenderness with distention Extremity: COMMON NORMALS: normal to inspection and full ROM Neuro: COMMON NORMALS: patient oriented x3, moves all extremities and no focal motor deficits Psych: COMMON NORMALS: mental status grossly normal, Normal thought process present and cooperative THOUGHT PROCESS: Normal thought process present Skin: COMMON NORMALS: no rashes or lesions noted and no wounds GENERAL SKIN EXAM: no rashes or lesions noted Course 2 Vital Signs: Vital signs: Vital Signs Temperature 98.0 F 09/27/23 16:07 Pulse Rate 65 09/27/23 16:26 Respiratory Rate 18 09/27/23 17:30 Blood Pressure 132/79 09/27/23 16:26 Pulse Oximetry 97 09/27/23 16:26 Oxygen Delivery Me thod Room Air 09/27/23 16:26 MDM - Abdominal Pain Medical Decision Making Patient presents here with small bowel obstruction we will place an NG tube here in the ER did speak to hospitalist, surgery will admit at this time. Medical Records I reviewed the patient's medical records. Lab Data I reviewed the patient's lab results. 09/27/23 16:15 09/27/23 16:15 Labs/Radiology: Radiology Impressions Abdomen/Pelvis CT 09/27/23 16:07 IMPRESSION: 1. Small bowel obstruction 2. Right hydronephrosis and hydroureter of uncertain etiology. ADDENDUM: 09/27/23 0666 Addendum: THIS REPORT CONTAINS FINDINGS THAT MAY BE CRITICAL TO PATIENT CARE. The findings were verbally communicated via telephone conference with SAMUEL ROJAS at 5:17 PM CDT on 09/27/2023. The findings were acknowledged and understood. Laboratory Results WBC 9.67 10^3/uL (3.29-11.43) 09/27/23 16:15 RBC 4.72 10^6/uL (3.85-5.65) 09/27/23 16:15 Hgb 14.80 g/dL (11.27-16.99) 09/27/23 16:15 Hct 42.2 % (36-47) 09/27/23 16:15 MCV 89.4 fl (85-98) 09/27/23 16:15 MCH 31.4 pg (27-33) 09/27/23 16:15 MCHC 35.1 g/dL (30-55) 09/27/23 16:15 RDW 12.8 % (12.1-15.1) 09/27/23 16:15 Plt Count 342 10^3/cmm (157-399) 09/27/23 16:15 MPV 9.1 fL (7.4-10.4) 09/27/23 16:15 Neut % (Auto) 66.5 % 09/27/23 16:15 Lymph % (Auto) 26.7 % 09/27/23 16:15 [place] % (Auto) 4.7 % 09/27/23 16:15 Eos % (Auto) 1.3 % 09/27/23 16:15 Baso % (Auto) 0.4 % 09/27/23 16:15 Neut # (Auto) 6.43 10^3/uL (1.8-7.7) 09/27/23 16:15 Lymph # (Auto) 2.6 10^3/uL (0.8-4.8) 09/27/23 16:15 [place] # (Auto) 0.5 10^3/uL (0.2-0.9) 09/27/23 16:15 Eos # (Auto) 0.1 10^3/uL (0.0-0.8) 09/27/23 16:15 Baso # (Auto) 0.0 10^3/uL (0.0-0.1) 09/27/23 16:15 Nucleated RBC % (auto) 0 % 09/27/23 16:15 Nucleated RBCs # 0.0 /100WBC 09/27/23 16:15 Sodium 139 mmol/L (136-145) 09/27/23 16:15 Potassium 4.3 mmol/L (3.5-5.1) 09/27/23 16:15 Chloride 101 mmol/L (98-107) 09/27/23 16:15 Carbon Dioxide 23 mmol/L (22-29) 09/27/23 16:15 Anion Gap 19.3 (5-19) H 09/27/23 16:15 BUN 13 mg/dL (6-20) 09/27/23 16:15 Creatinine 0.8 mg/dL (0.5-0.9) 09/27/23 16:15 GFR Calculation 74.5 mL/min (90-130) L 09/27/23 16:15 Glucose 98 mg/dL (65-115) 09/27/23 16:15 Calculated Osmolality 288 mOsm/kg (285-295) 09/27/23 16:15 Lactic Acid 2.3 mmol/L (0.5-2.2) H 09/27/23 16:15 Calcium 9.5 mg/dL (8.5-10.5) 09/27/23 16:15 Total Bilirubin 0.8 mg/dL (0.15-1.2) 09/27/23 16:15 AST 18 U/L (0-32) 09/27/23 16:15 ALT 13 U/L (0-33) 09/27/23 16:15 Alkaline Phosphatase 72 U/L (35-105) 09/27/23 16:15 Total Protein 8.1 g/dL (6.6-8.7) 09/27/23 16:15 Albumin 4.6 g/dL (3.5-5.2) 09/27/23 16:15 Globulin 3.5 g/dL (1.3-4.6) 09/27/23 16:15 Lipase 151 U/L (13-60) H 09/27/23 16:15 All radiology interpretation(s) finalized by discharge Discharge Plan Discharge Patient Disposition: Admitted As Inpatient Clinical Impression: Small bowel obstruction Condition: Stable Prescriptions: No Action albuterol sulfate 90 mcg/actuation HFA aerosol inhaler 1 inh inhalation QID PRN (Reason: shortness of breath or wheezing) Qty: 8.5 5RF Trelegy Ellipta 100-62.5-25 mcg blister with device 1 inh inhalation DAILY Qty: 60 3RF folic acid 1 mg tablet 1 mg PO DAILY Qty: 90 2RF buspirone 15 mg tablet 15 mg PO BID Qty: 60 5RF quetiapine 300 mg tablet 300 mg PO BEDTIME Qty: 30 5RF Rx Instructions: take with 200mg ropinirole 4 mg tablet 4 mg PO BEDTIME Qty: 30 5RF Rx Instructions: take two hours before bed gabapentin 600 mg tablet 600 mg PO BEDTIME Qty: 30 5RF paroxetine HCl [Paxil] 40 mg tablet 40 mg PO DAILY Qty: 30 4RF (DME) insulin syringe-needle U-100 [TRUEplus Insulin] 1 mL 30 gauge x 5/16 syringe See Rx Instructions .ROUTE .MEDSUPPLY Qty: 100 2RF Rx Instructions: As directed quetiapine 200 mg tablet See Rx Instructions .ROUTE .COMPLEX Qty: 30 5RF Dose Instruction: TAKE ONE TABLET BY MOUTH DAILY Rx Instructions: TAKE ONE TABLET BY MOUTH DAILY ([facility] [place]) Colostomy appliances and supplies See Rx Instructions .Route .MEDSUPPLY Qty: 100 0RF Rx Instructions: As directed methotrexate sodium 25 mg/mL solution 25 mg SUBCUT Q7D Qty: 10 2RF Rx Instructions: on fridays Orencia 125 mg/mL syringe See Rx Instructions .ROUTE .COMPLEX Qty: 4 1RF Dose Instruction: inject 125mg SUBCUTANEOUSLY ONCE a week Rx Instructions: inject 125mg SUBCUTANEOUSLY ONCE a week (DME) Monoject TB Safety Syringe 1 mL 25 gauge x 5/8 syringe See Rx Instructions .ROUTE .MEDSUPPLY Qty: 50 1RF Rx Instructions: As directed polyethylene glycol 3350 17 gram Powder In Packet 17 g PO DAILY Qty: 100 0RF cyanocobalamin (vitamin B-12) 5,000 mcg capsule 5,000 mcg PO DAILY Qty: 30 0RF Referrals: Brii Borden NP [Primary Care Provider] - Coding Level of Care Code ED Paedodontist for Germang Mahad
[2023-09-27] MEDS: ondansetron 2 mg/ML SDV 2 mL 4 MG IVP ×2 (16:20→21:53)
[2023-09-27] MEDS: metoclopramide 5 mg/mL SDV 2 mL 10 MG IVP (16:21)
[2023-09-27] MEDS: diphenhydrAMINE 50 mg/mL SDV 1mL IVP (16:22)
[2023-09-27] MEDS: sodium chloride 0.9% 1,000 ML 999 ML IV ×3 (16:24→20:59)
[2023-09-27 16:27] LABS: Basophils % 0.4 %; Eosinophils # 0.1 10^3/uL (0.0-0.8); Eosinophils % 1.3 %; Hematocrit 42.2 % (36-47); Lymphocytes # 2.6 10^3/uL (0.8-4.8); Lymphocytes % 26.7 %; Mean Corpuscular HGB Conc 35.1 g/dL (30-55); Mean Corpuscular Hemoglobin 31.4 pg (27-33); Mean Corpuscular Volume 89.4 fl (85-98); Mean Platelet Volume 9.1 fL (7.4-10.4); Monocytes # 0.5 10^3/uL (0.2-0.9); Monocytes % 4.7 %; Neutrophils # 6.43 10^3/uL (1.8-7.7); Neutrophils % 66.5 %; Nucleated Red Blood Cells % 0 %; Platelet Count 342 10^3/cmm (157-399); Red Blood Count 4.72 10^6/uL (3.85-5.65); Red Cell Distribution Width 12.8 % (12.1-15.1); White Blood Count 9.67 10^3/uL (3.29-11.43)
[2023-09-27] MEDS: iohexol 350 mg/mL 500 mL Btl (per mL) IV (16:40)
[2023-09-27 16:47] LABS: Lactic Sepsis W/Reflex 2.3 mmol/L (0.5-2.2)
[2023-09-27 16:48] LABS: Alanine Aminotransferase 13 U/L (0-33); Albumin Level 4.6 g/dL (3.5-5.2); Alkaline Phosphatase 72 U/L (35-105); Anion Gap 19.3 (5-19); Aspartate Amino Transferase 18 U/L (0-32); Blood Urea Nitrogen 13 mg/dL (6-20); Calcium 9.5 mg/dL (8.5-10.5); Carbon Dioxide 23 mmol/L (22-29); Chloride 101 mmol/L (98-107); Creatinine Clr Calc Pharmacy 89.2839; Globulin 3.5 g/dL (1.3-4.6); Glomerular Filtration Rate 74.5 mL/min (90-130); Glucose 98 mg/dL (65-115); Lipase 151 U/L (13-60); Osmolality Calculated 288 mOsm/kg (285-295); Potassium 4.3 mmol/L (3.5-5.1); Sodium 139 mmol/L (136-145); Total Bilirubin 0.8 mg/dL (0.15-1.2); Total Protein 8.1 g/dL (6.6-8.7)
[2023-09-27] MEDS: morphine 4 mg/mL SDV 1 mL IVP (17:30)
[2023-09-27] MEDS: LORazepam 2 mg/mL INJ 1 mL 1 MG IVP (17:32)
--- NOTE | 2023-09-27 18:10 | XRR_ITS ---
PROCEDURE INFORMATION: Exam: XR Chest Exam date and time: 09/27/2023 6:13 PM Age: 53 years old Clinical indication: Device placement; Ng tube TECHNIQUE: Imaging protocol: Radiologic exam of the chest. Views: 1 view. COMPARISON: CR XR chest 1V portable [id number] 09/06/2023 2:27 PM FINDINGS: Tubes, catheters and devices: There is a nasogastric tube in place with its tip in the stomach. NG tube tip is in the stomach. Lungs: Visualized portions of the lungs are clear. Pleural spaces: Unremarkable. No pleural effusion. No pneumothorax. Heart/Mediastinum: Heart is within normal limits of size. Bones/joints: Unremarkable. XR/XR chest 1V portable [id number] IMPRESSION: No acute infiltrate
[2023-09-27 18:12] LABS: Reflex Lactate Order REFLEX LACTIC ORDERD
--- NOTE | 2023-09-27 18:52 | P.HP_ITS ---
Providers/Chief Complaint 2 Primary Care Provider: Brii Borden NP Chief Complaint: abd pain n/v History of Present Illness Maura Hermosillo is a 53 year old female With past medical history of rectal cancer, PE, restless leg syndrome, EDGARD, psoriatic arthritis, degenerative disc disease, resection of rectum with diverting colostomy presented to the hospital today for complaint of recurrent nausea vomiting. Patient is stating that she normally empties her colostomy bag 3-4 times a day, today she has only emptied once, she ate her breakfast then started experiencing nausea with vomiting she has had 5 episodes in total, no fever. In the ER she has been diagnosed with SBO with constipation. Lactic acid was hide related to dehydration. There is chronic hydronephrosis as well creatinine is normal no leukocytosis or fever. Patient lives alone. Patient recently had similar presentation when she was discharged home after conservative management. She was given stool softeners as well for her constipation Review of Systems 2 Const: Denies: fever(s) Eyes: Denies: change in vision ENMT: Denies: throat pain Card: Denies: chest pain Resp: Denies: dyspnea GI: Reports: abdominal pain, nausea and vomiting : Denies: flank pain Musc: Denies: neck pain Medications/Allergies Home Medications Medication Instructions Recorded Confirmed Last Taken Type folic acid 1 mg tablet 1 mg PO DAILY #90 tabs 08/27/21 09/13/23 2 Weeks Ago Rx ~07/24/22 insulin syringe-needle U-100 1 mL #100 ea 06/15/22 09/13/23 Unknown Rx 30 gauge x 5/16 (TRUEplus Insulin) buspirone 15 mg tablet 15 mg PO BID #60 tabs 08/14/22 09/13/23 Unknown Rx gabapentin 600 mg tablet 600 mg PO BEDTIME #30 tabs 08/14/22 09/13/23 Unknown Rx quetiapine 300 mg tablet 300 mg PO BEDTIME #30 tabs 08/14/22 09/13/23 Unknown Rx ropinirole 4 mg tablet 4 mg PO BEDTIME #30 tabs 08/14/22 09/13/23 Unknown Rx paroxetine HCl 40 mg tablet (Paxil) 40 mg PO DAILY #30 tabs 08/26/22 09/13/23 Unknown Rx quetiapine 200 mg tablet See Rx Instructions .Route 09/12/22 09/13/23 Unknown Rx .COMPLEX #30 tabs Colostomy appliances and supplies #100 ea 11/12/22 09/13/23 Unknown Rx albuterol sulfate 90 mcg/actuation 1 inh inhalation QID PRN shortness 01/12/23 09/13/23 Unknown Rx aerosol inhaler of breath or wheezing #8.5 grams methotrexate sodium 25 mg/mL 25 mg SUBCUT Q7D #10 mL 03/17/23 09/13/23 Unknown Rx injection solution abatacept 125 mg/mL subcutaneous See Rx Instructions .Route 06/02/23 09/13/23 Unknown Rx syringe (Orencia) .COMPLEX #4 mL fluticasone fur. 100 mcg-umeclid 1 inh inhalation DAILY #60 ea 06/15/23 09/13/23 Unknown Rx 62.5 mcg-vilant 25 mcg inhalat.powder (Trelegy Ellipta) syringe with needle 1 mL 25 gauge #50 ea 07/01/23 09/13/23 Unknown Rx x 5/8 (Monoject TB Safety Syringe) cyanocobalamin (vitamin B-12) 5,000 mcg PO DAILY #30 caps 09/08/23 09/13/23 Unknown Rx 5,000 mcg capsule polyethylene glycol 3350 17 gram 17 g PO DAILY #100 ea 09/08/23 09/13/23 Unknown Rx oral powder packet Allergies Allergy/AdvReac Type Severity Reaction Status Date / Time coconut oil Allergy Severe anaphylaxis Verified 09/13/23 09:40 mushroom Allergy Severe trouble Verified 09/13/23 09:40 breathing duloxetine [From Cymbalta] Allergy Intermediate dizziness,v Verified 09/13/23 09:40 omiting atorvastatin AdvReac Intermediate does not Verified 09/13/23 09:40 want to take it PFSH Acute 2 PFSH: Medical History B12 deficiency Cocaine use disorder, severe, in sustained remission Acute kidney injury Loss of hair DDD (degenerative disc disease), lumbar Lumbar spondylosis Hydronephrosis of right kidney Rectal cancer Cancer free for 14 years. Lumbar radiculitis Peripheral neuropathy Obstructive sleep apnea Restless leg syndrome Chronic post-traumatic stress disorder Pulmonary embolism CKD (chronic kidney disease) Osteoarthritis of knees, bilateral Immunosuppression Psoriasis Psoriatic arthritis Surgical History History of resection of rectum H/O: hysterectomy Due to fibroids. H/O tubal ligation Colostomy in place Family History Other Cancer Social History Smoking and tobacco/nicotine status: current every day tobacco/nicotine user cigarettes Packs smoked per day: 0.5 Years cigarettes smoked: 41 [ Other cigarette details: Pt reports smoking at age 3] Alcohol intake: current Alcohol intake frequency: holidays/special occasions only Substance/Drug Use: never Lives independently: Yes Household members: none Marital status: Legally Current occupational status: disabled Do you think of yourself as: Straight/Heterosexual Current gender identity: Female Vitals/I&O/Wt Last Vital Signs Temp 98.0 F 09/27/23 16:07 Pulse 73 09/27/23 18:31 Resp 18 09/27/23 17:30 BP 118/73 09/27/23 18:31 Pulse Ox 96 09/27/23 18:31 O2 Del Method Room Air 09/27/23 18:31 09/27/23 09/27/23 09/27/23 06:59 14:59 22:59 Intake Total 1000 / 1000 Balance 1000 / 1000 Weight last 48 hrs Weight 82.1 kg Physical Exam 2 Narrative: Clinically patient is dehydrated Distended nontender abdomen Colostomy bag in place which is empty Lower extremity has chronic ulcers no acute exacerbation No signs of edema Clinically patient is dehydrated Dry mucous membrane NG tube in place S1, S2 Hemodynamically stable on room air Data 09/27/23 16:15 09/27/23 16:15 A&P Assessment and plan (1) Small bowel obstruction: (2) Nausea & vomiting: (3) Colostomy in place: (4) Hydronephrosis of right kidney: (5) Obstructive sleep apnea: (6) Psoriasis: Plan Recurrent SBO Conservative management NG tube placed NG to low intermittent suction Start IV fluids Opioids along IV fluids N.p.o. Dr. Sheppard consulted Hold off on methotrexate which patient takes for psoriasis Hold all p.o. medications Clinically patient extremely dehydrated we will start PPN in the morning Will consult dietitian Full code N.p.o. DVT prophylaxis: Lovenox Chronic right-sided hydronephrosis no fever, creatinine normal, monitor for now Attestations 2 Medical Necessity Statement*: Anticipating more than 2 midnights Diagnoses Small bowel obstruction K56.609 Nausea & vomiting R11.[address] Z93.3 Hydronephrosis of right kidney N13.30 Obstructive sleep apnea G47.33 Psoriasis L40.9
[2023-09-27 19:36] LABS: Add Urine Microscopic? NO; Charge for UA Resulting for Rev
[2023-09-27 19:38] LABS: Bilirubin Urine Neg (Negative); Blood Urine Neg (Negative); Glucose Urine UA Norm (Normal); Ketones Urine Negative (Negative); Leukocyte Esterase Urine Negative (Negative); Nitrate Urine Negative (Negative); Protein Urine Neg (Negative); Specific Gravity, Urine 1.005 (1.005-1.030); Urine Appearance Clear (CLEAR); Urine Color Yellow (Yellow); Urobilinogen Urine Norm (Negative); pH Urine 5 (5-7)
[2023-09-27] MEDS: HYDROmorphone 1 mg/mL INJ 1 mL IVP (19:40)
[2023-09-27 20:31] LABS: Amphetamines Screen Urine Negative (Negative); Barbiturates Screen Urine Negative (Negative); Benzodiazepines Screen Urine Negative (Negative); Cocaine Screen Urine Negative (Negative); Opiate Screen Urine Positive (Negative); PCP Screen Urine Negative (Negative); THC Screen Urine Negative (Negative)
[2023-09-27] MEDS: enoxaparin 40 mg/0.4 mL Syringe SUBCUT (20:56)
[2023-09-27] MEDS: HYDROmorphone 1 mg/mL INJ 1 mL 0.4 MG IVP (20:58)
[2023-09-27] MEDS: dextrose 5%-sod chloride 0.9% 1,000 ML 75 ML IV (22:17)
[2023-09-28 04:00] VITALS: BP 122/74; PULSE 68; RESP 17; TEMP 36.8; O2SAT 94
[2023-09-28 04:13] VITALS: RESP 18
[2023-09-28] MEDS: HYDROmorphone 1 mg/mL INJ 1 mL 0.4 MG IVP ×2 (04:13→09:45)
[2023-09-28 04:57] LABS: Basophils % 0.4 %; Eosinophils % 0.1 %; Hematocrit 36.8 % (36-47); Lymphocytes # 1.2 10^3/uL (0.8-4.8); Lymphocytes % 13.6 %; Mean Corpuscular HGB Conc 33.7 g/dL (30-55); Mean Corpuscular Hemoglobin 31.3 pg (27-33); Mean Corpuscular Volume 92.9 fl (85-98); Mean Platelet Volume 9.3 fL (7.4-10.4); Monocytes # 0.3 10^3/uL (0.2-0.9); Monocytes % 2.9 %; Neutrophils # 7.05 10^3/uL (1.8-7.7); Neutrophils % 82.5 %; Nucleated Red Blood Cells % 0 %; Platelet Count 269 10^3/cmm (157-399); Red Blood Count 3.96 10^6/uL (3.85-5.65); White Blood Count 8.54 10^3/uL (3.29-11.43)
[2023-09-28 05:15] LABS: Anion Gap 18.4 (5-19); Blood Urea Nitrogen 11 mg/dL (6-20); Carbon Dioxide 18 mmol/L (22-29); Chloride 111 mmol/L (98-107); Creatinine Clr Calc Pharmacy 102.0388; Glomerular Filtration Rate 86.9 mL/min (90-130); Glucose 126 mg/dL (65-115); Magnesium 2.1 mg/dL (1.7-2.3); Osmolality Calculated 297 mOsm/kg (285-295); Potassium 4.4 mmol/L (3.5-5.1); Sodium 143 mmol/L (136-145)
[2023-09-28 07:14] VITALS: BP 101/65; PULSE 64; RESP 16; TEMP 36.2; O2SAT 91
[2023-09-28 07:15] VITALS: PULSE 64; RESP 16; O2SAT 91
[2023-09-28] MEDS: pantoprazole 40 mg SDV IVP (08:35)
--- NOTE | 2023-09-28 09:15 | PC.CHAP ---
Pastoral Care Encounter/Spiritual Assessment Type of Contact [] Declined laboratory helper visit [] Patient/Family/Request visit [] Outpatient visit [] Follow-up visit [] Physician referral [] Code/Alert [x] Routine visit [] Staff referral [] Actively dying [] Patient sleeping [] Family support [] [] Out of room [] Palliative care [] [] Receiving care in room [] Pre-surgical visit [] Trauma [] Long length of stay [] ICU visit [] Other: Relational/Emotional Strength [x] Patient feels connected with others/family/visitors/staff [] Distress [] Loneliness/isolation [] Abandonment Spirituality of Patient [x] Person of Jaqueline [] Attends [employer] of their Jaqueline [x] Believes in Prayer [] Reads Bible or Alevism materials [] There are Spiritual issues to be addressed Supervisor [employer] Interventions [x] Prayer [x] Active listening [] Non-anxious presence [x] Spiritual/emotional support [] Crisis/trauma care [] Spiritual counseling [] Bereavement support [] Provided bereavement packet [] Provided Bible/devotional materials [] Provided toy/stuffed animal, coloring book to patient or family member [] Provided Communion [] Anointing/[place] [] Salvation [x] Completed spiritual assessment [] Other: Impact on Illness or Injury [] Angry [] Fearful [] Anxious [] Often cries [] Exhaustion [] Unable to work [] Unable to attend anglican [] Unable to walk/stand [] Unable to read [] Unable to drive [] Unable to eat/drink [] Unable to sleep [] Unable to be with family [] Patient intubated [] Other: Summary Time spent with patient 5 min
[2023-09-28 09:45] VITALS: RESP 18
--- NOTE | 2023-09-28 11:10 | P.PN_ITS ---
Subjective 2 Subjective: Patient currently not complaining excruciating pain No passage of flatus or bowel movement through colostomy bag NG to low intermittent suction noted 400 mL brown-colored fluid Dr. Sheppard to see the patient today, patient is hemodynamically stable with normal CBC and BMP other than mild acidosis Starting PPN today Vitals/I&O/Wt Last Vital Signs Temp 97.1 F L 09/28/23 07:14 Pulse 64 09/28/23 07:15 Resp 18 09/28/23 09:45 BP 101/65 09/28/23 07:14 Pulse Ox 91 09/28/23 07:15 O2 Del Method Room Air 09/28/23 07:15 09/27/23 09/28/23 09/28/23 22:59 06:59 14:59 Intake Total 3100 / 3100 Output Total 1075 / 1075 Balance 3100 / 3100 -1075 / 2024 Weight last 48 hrs Weight 82.1 kg Weight 94.007 kg Weight 82.1 kg Physical Exam 2 Narrative: Awake and alert Signs of dehydration present NG to low intermittent suction Pleasant cooperative Abdomen soft Bowel sounds sluggish Empty colostomy bag Pleasant cooperative Hemodynamic stable Data 09/28/23 04:23 09/28/23 04:23 A&P Assessment and plan (1) B12 deficiency: (2) Nausea & vomiting: (3) Small bowel obstruction: (4) Hydronephrosis of right kidney: (5) Psoriasis: (6) Obstructive sleep apnea: Plan SBO Conservative management 400 mL content in the NG container Low intermittent suction with NG tube Continue IV fluids CBC BMP unremarkable Hemodynamically stable Bowel sounds sluggish Patient has not eaten well in last 2 weeks, I will start PPN Full code N.p.o. DVT prophylaxis: SCDs Will follow-up with Dr. Sheppard to see if there is any indication for surgical intervention at this point considering second admission for SBO Attestations 2 Medical Necessity Statement*: Continue medical management Diagnoses B12 deficiency E53.8 Nausea & vomiting R11.2 Small bowel obstruction K56.609 Hydronephrosis of right kidney N13.30 Psoriasis L40.9 Obstructive sleep apnea G47.33
[2023-09-28] MEDS: dextrose 5%-sod chloride 0.9% 1,000 ML 75 ML IV (11:37)
[2023-09-28 11:56] VITALS: BP 108/66; PULSE 66; RESP 16; TEMP 36.3; O2SAT 92
[2023-09-28] MEDS: acetaminophen 500 mg Tablet PO (15:05)
--- NOTE | 2023-09-28 16:39 | PC.NURSE ---
pt leaving [facility]. educ on all risks of leaving [facility], up to and including . educ pt on benefits of remaining ip and continuing treatment for her sm bowel obstruction. pt still insisted on leaving. removed ng tube and iv. pt signed ama release. dr. granda notified and aware of pts decision.
--- NOTE | 2023-09-28 20:23 | PM.DCS ---
Discharge Providers Date of Admission: 09/27/23 19:53 Date of Discharge: September 28, 2023 Attending Provider at Admission: Isaias Pierce MD Attending Provider at Discharge: Isaias Pierce MD Primary Care Provider: Brii Borden NP Diagnoses at Discharge Discharge Diagnosis (1) B12 deficiency: Status: Acute (2) Nausea & vomiting: Status: Acute (3) Small bowel obstruction: Status: Acute (4) Hydronephrosis of right kidney: Status: Resolved (5) Psoriasis: Status: Acute (6) Obstructive sleep apnea: Status: Acute Reason for Visit Reason for Visit: abd pain n/v Hospital Course Hospital Course Patient was getting treated conservatively for small bowel obstruction with NG tube to low intermittent suction, she was doing well hemodynamically stable with positive bowel sounds, patient decided to leave AMA she was well aware that she carries risk of worsening of bowel obstruction including perforation, septic shock and , she has a capacity to make decision, Discharge Data Studies Completed and Pending Completed Studies During Hospitalization Category Date Time Status CT abdomen pelvis w con* [id number] Stat Cat Scan 09/27/23 16:07 Completed XR chest 1V portable [id number] Stat Exams 09/27/23 18:10 Completed Radiology Impressions Abdomen/Pelvis CT 09/27/23 16:07 IMPRESSION: 1. Small bowel obstruction 2. Right hydronephrosis and hydroureter of uncertain etiology. ADDENDUM: 09/27/23 1719 Addendum: THIS REPORT CONTAINS FINDINGS THAT MAY BE CRITICAL TO PATIENT CARE. The findings were verbally communicated via telephone conference with KARLOS ROJAS at 5:17 PM CDT on 09/27/2023. The findings were acknowledged and understood. Chest X-Ray 09/27/23 18:10 IMPRESSION: No acute infiltrate Laboratory Results WBC 8.54 10^3/uL (3.29-11.43) 09/28/23 04:23 RBC 3.96 10^6/uL (3.85-5.65) 09/28/23 04:23 Hgb 12.40 g/dL (11.27-16.99) 09/28/23 04:23 Hct 36.8 % (36-47) 09/28/23 04:23 MCV 92.9 fl (85-98) 09/28/23 04:23 MCH 31.3 pg (27-33) 09/28/23 04:23 MCHC 33.7 g/dL (30-55) 09/28/23 04:23 RDW 13.0 % (12.1-15.1) 09/28/23 04:23 Plt Count 269 10^3/cmm (157-399) 09/28/23 04:23 MPV 9.3 fL (7.4-10.4) 09/28/23 04:23 Neut % (Auto) 82.5 % 09/28/23 04:23 Lymph % (Auto) 13.6 % 09/28/23 04:23 [place] % (Auto) 2.9 % 09/28/23 04:23 Eos % (Auto) 0.1 % 09/28/23 04:23 Baso % (Auto) 0.4 % 09/28/23 04:23 Neut # (Auto) 7.05 10^3/uL (1.8-7.7) 09/28/23 04:23 Lymph # (Auto) 1.2 10^3/uL (0.8-4.8) 09/28/23 04:23 [place] # (Auto) 0.3 10^3/uL (0.2-0.9) 09/28/23 04:23 Eos # (Auto) 0.0 10^3/uL (0.0-0.8) 09/28/23 04:23 Baso # (Auto) 0.0 10^3/uL (0.0-0.1) 09/28/23 04:23 Nucleated RBC % (auto) 0 % 09/28/23 04:23 Nucleated RBCs # 0.0 /100WBC 09/28/23 04:23 Sodium 143 mmol/L (136-145) 09/28/23 04:23 Potassium 4.4 mmol/L (3.5-5.1) 09/28/23 04:23 Chloride 111 mmol/L (98-107) H 09/28/23 04:23 Carbon Dioxide 18 mmol/L (22-29) L 09/28/23 04:23 Anion Gap 18.4 (5-19) 09/28/23 04:23 BUN 11 mg/dL (6-20) 09/28/23 04:23 Creatinine 0.7 mg/dL (0.5-0.9) 09/28/23 04:23 GFR Calculation 86.9 mL/min (90-130) L 09/28/23 04:23 Glucose 126 mg/dL (65-115) H 09/28/23 04:23 Calculated Osmolality 297 mOsm/kg (285-295) H 09/28/23 04:23 Lactic Acid 2.3 mmol/L (0.5-2.2) H 09/27/23 16:15 Lactic Acid (Sepsis) 4.0 mmol/L (0.5-2.2) H 09/27/23 19:07 Calcium 8.0 mg/dL (8.5-10.5) L 09/28/23 04:23 Magnesium 2.1 mg/dL (1.7-2.3) 09/28/23 04:23 Total Bilirubin 0.8 mg/dL (0.15-1.2) 09/27/23 16:15 AST 18 U/L (0-32) 09/27/23 16:15 ALT 13 U/L (0-33) 09/27/23 16:15 Alkaline Phosphatase 72 U/L (35-105) 09/27/23 16:15 Total Protein 8.1 g/dL (6.6-8.7) 09/27/23 16:15 Albumin 4.6 g/dL (3.5-5.2) 09/27/23 16:15 Globulin 3.5 g/dL (1.3-4.6) 09/27/23 16:15 Lipase 151 U/L (13-60) H 09/27/23 16:15 Urine Color Yellow (Yellow) 09/27/23 19:27 Urine Appearance Clear (CLEAR) 09/27/23 19:27 Urine pH 5 (5-7) 09/27/23 19:27 Ur Specific Casey 1.005 (1.005-1.030) 09/27/23 19:27 Urine Protein Neg (Negative) 09/27/23 19:27 Urine Glucose (UA) Norm (Normal) 09/27/23 19:27 Urine Ketones Negative (Negative) 09/27/23 19:27 Urine Blood Neg (Negative) 09/27/23 19:27 Urine Nitrate Negative (Negative) 09/27/23 19:27 Urine Bilirubin Neg (Negative) 09/27/23 19:27 Urine Urobilinogen Norm mg/dL (Negative) 09/27/23 19:27 Ur Leukocyte Esterase Negative (Negative) 09/27/23 19:27 Urine Opiates Screen Positive ng/mL (Negative) H 09/27/23 19:27 Ur Barbiturates Screen Negative ng/mL (Negative) 09/27/23 19:27 Ur Phencyclidine Scrn Negative ng/mL (Negative) 09/27/23 19:27 Ur Amphetamines Screen Negative ng/mL (Negative) 09/27/23 19:27 U Benzodiazepines Scrn Negative ng/mL (Negative) 09/27/23 19:27 Urine Cocaine Screen Negative ng/mL (Negative) 09/27/23 19:27 U Marijuana (THC) Screen Negative ng/mL (Negative) 09/27/23 19:27 Vitals Last Vital Signs Temp 97.3 F L 09/28/23 11:56 Pulse 66 09/28/23 11:56 Resp 16 09/28/23 11:56 BP 108/66 09/28/23 11:56 Pulse Ox 92 09/28/23 11:56 O2 Del Method Room Air 09/28/23 11:56 Discharge Plan Discharge Patient Disposition: Left Against Medical Advice Condition: Stable Prescriptions: No Action albuterol sulfate 90 mcg/actuation HFA aerosol inhaler 1 inh inhalation QID PRN (Reason: shortness of breath or wheezing) Qty: 8.5 5RF Trelegy Ellipta 100-62.5-25 mcg blister with device 1 inh inhalation DAILY Qty: 60 3RF folic acid 1 mg tablet 1 mg PO DAILY Qty: 90 2RF Patient Comments: pt states she is not taking this at the moment buspirone 15 mg tablet 15 mg PO BID Qty: 60 5RF quetiapine 300 mg tablet 300 mg PO BEDTIME Qty: 30 5RF Rx Instructions: take with 200mg ropinirole 4 mg tablet 4 mg PO BEDTIME Qty: 30 5RF Rx Instructions: take two hours before bed gabapentin 600 mg tablet 600 mg PO BEDTIME Qty: 30 5RF paroxetine HCl [Paxil] 40 mg tablet 40 mg PO DAILY Qty: 30 4RF (DME) insulin syringe-needle U-100 [TRUEplus Insulin] 1 mL 30 gauge x 5/16 syringe See Rx Instructions .ROUTE .MEDSUPPLY Qty: 100 2RF Rx Instructions: As directed quetiapine 200 mg tablet See Rx Instructions .ROUTE .COMPLEX Qty: 30 5RF Dose Instruction: TAKE ONE TABLET BY MOUTH DAILY Rx Instructions: TAKE ONE TABLET BY MOUTH DAILY (DME) Colostomy appliances and supplies See Rx Instructions .Route .MEDSUPPLY Qty: 100 0RF Rx Instructions: As directed methotrexate sodium 25 mg/mL solution 25 mg SUBCUT Q7D Qty: 10 2RF Patient Comments: pt states she is not currently taking this medication Rx Instructions: on fridays Orencia 125 mg/mL syringe See Rx Instructions .ROUTE .COMPLEX Qty: 4 1RF Dose Instruction: inject 125mg SUBCUTANEOUSLY ONCE a week Rx Instructions: inject 125mg SUBCUTANEOUSLY ONCE a week (DME) Monoject TB Safety Syringe 1 mL 25 gauge x 5/8 syringe See Rx Instructions .ROUTE .MEDSUPPLY Qty: 50 1RF Rx Instructions: As directed polyethylene glycol 3350 17 gram Powder In Packet 17 g PO DAILY Qty: 100 0RF cyanocobalamin (vitamin B-12) 5,000 mcg capsule 5,000 mcg PO DAILY Qty: 30 0RF Referrals: Brii Borden, LEATHER TANNER [Primary Care Provider] - Discharge Attestations Time Spent in Discharge Care*: other Status at Discharge: Cognitive status at discharge: cognitively intact, Behavioral status at discharge: can be uncooperative, Quality Metrics Clinical Quality Measures [ No reported AMI, CVA or VTE this stay] Coding Level of Care Code Acute Code for Chg Fwd Diagnoses B12 deficiency E53.8 Nausea & vomiting R11.2 Small bowel obstruction K56.609 Hydronephrosis of right kidney N13.30 Psoriasis L40.9 Obstructive sleep apnea G47.33
== END 2023-09-28 16:25 | disposition left against medical advice (07) | DRG 389 ==
LOC: ER 19:44 → MEDSURG 19:53
PROVIDERS: Admitting Provider Internal Medicine; Emergency Provider Emergency Medicine; Visit Provider Internal Medicine
DX: K56.609 Unspecified intestinal obstruction, unspecified as to partial versus complete obstruction (principal); N13.30 Unspecified hydronephrosis; Z93.3 Colostomy status; Z85.048 Personal history of other malignant neoplasm of rectum, rectosigmoid junction, and anus; E86.0 Dehydration; E53.8 Deficiency of other specified B group vitamins; N18.9 Chronic kidney disease, unspecified; M51.36 Other intervertebral disc degeneration, lumbar region; L40.50 Arthropathic psoriasis, unspecified; Z79.631 Long term (current) use of antimetabolite agent; F17.210 Nicotine dependence, cigarettes, uncomplicated; Z86.711 Personal history of pulmonary embolism
CPT/HCPCS: 36415; 71045; 74177; 80048; 80053; 80306; 81003; 83605; 83690; 83735; 85025; 96372; 96374; 96375; 99285; C9113; J1170; J1200; J1650; J2060; J2270; J2405; J2765; J7030; J7042; Q9967

== ENCOUNTER 2023-09-30 10:51 | Emergency (ER) | payer MEDICARE, MEDICAID, SELFPAY ==
[2023-09-30 11:15] VITALS: BP 130/81; PULSE 74; RESP 18; TEMP 36.7; O2SAT 96; BMI 27.5
[2023-09-30 11:25] LABS: Basophils % 0.8 %; Eosinophils # 0.1 10^3/uL (0.0-0.8); Eosinophils % 1.5 %; Hematocrit 44.4 % (36-47); Lymphocytes # 2.1 10^3/uL (0.8-4.8); Lymphocytes % 40.4 %; Mean Corpuscular HGB Conc 31.8 g/dL (30-55); Mean Corpuscular Hemoglobin 31.5 pg (27-33); Mean Corpuscular Volume 99.1 fl (85-98); Mean Platelet Volume 10.1 fL (7.4-10.4); Monocytes # 0.3 10^3/uL (0.2-0.9); Monocytes % 5.7 %; Neutrophils # 2.66 10^3/uL (1.8-7.7); Nucleated Red Blood Cells % 0 %; Platelet Count 284 10^3/cmm (157-399); Red Blood Count 4.48 10^6/uL (3.85-5.65); Red Cell Distribution Width 12.9 % (12.1-15.1); White Blood Count 5.22 10^3/uL (3.29-11.43)
--- NOTE | 2023-09-30 11:32 | CT_ITS ---
WS: [id number] CT ABDOMEN PELVIS TECHNIQUE: Contrast-enhanced CT of the abdomen and pelvis with coronal and sagittal reformatted image s. CLINICAL INFORMATION: abd pain COMPARISON: CT 09/27/2023 DLP: 642.[address] scans at [facility] use at least one of these dose optimization techniques: automated e xposure control; mA and/or kV adjustment per patient size (includes targeted exams where dose is matc hed to clinical indication); or iterative reconstruction. FINDINGS: Previously described small bowel obstruction has improved. Decompression of the dilated fluid-filled small bowel loops. Prior postoperative changes rectosigmoid resection. Colostomy LEFT lower quadrant which is patent. Prior hysterectomy. Lumbar scoliosis. Urine distended bladder. Mild bladder wall thickening. Diffuse fatty infiltration of the liver. Lisa l gallbladder. Normal spleen. Normal GE junction. Lung bases are well aerated. Fatty atrophy of the p ancreas. Celiac and SMA are patent. Adrenal glands are normal. Normal renal parenchymal enhancement. Moderate RIGHT hydronephrosis with hydroureter has improved slightly compared to previous CT/CT abdomen pelvis w con* [id number] IMPRESSION: 1. Improved previously described small bowel obstruction with decompression of the small bowel loops today. 2. Colostomy LEFT lower quadrant appears patent. 3. Moderate RIGHT hydronephrosis and hydroureter slightly improved compared to previous but persistent. No visualized obstructing calculi. 4. Diffuse bladder wall thickening with enhancement. Recommend correlation for cystitis. 5. Prior postoperative changes rectosigmoid. 6. Mild hepatomegaly.
--- NOTE | 2023-09-30 11:33 | ED_ITS ---
HPI - Abdominal Pain 2 General: Chief Complaint: Abdominal Pain Stated Complaint: abd pain Time Seen by Provider: 09/30/23 11:30 Source: patient Mode of arrival: ambulatory Limitations: no limitations History of Present Illness: 53-year-old female who is here on Wednesday was admitted with a small bowel obstruction she left Wednesday AGAINST MEDICAL ADVICE she states since then she had some continued abdominal pain not much output out of her ostomy and is concerned she still has a bowel obstruction she rates her pain a 5 out of 10 denies any vomiting. Associated Symptoms: Denies chills, diarrhea, fever(s), nausea and vomiting Review of Systems 2 Const: Denies: fever(s), chills, body aches or change in appetite ENMT: Denies: throat pain or dental pain Card: Denies: chest pain Resp: Denies: dyspnea GI: Reports: abdominal pain; Denies: nausea, vomiting or diarrhea Musc: Denies: neck pain or back pain Skin/Breast: Denies: rash Neuro: Denies: headache(s) PFSH ED 2 PFSH: Medical History Small bowel obstruction Nausea & vomiting Small bowel obstruction Obstructive sleep apnea B12 deficiency Cocaine use disorder, severe, in sustained remission Acute kidney injury Loss of hair DDD (degenerative disc disease), lumbar Lumbar spondylosis Hydronephrosis of right kidney Rectal cancer Cancer free for 14 years. Lumbar radiculitis Peripheral neuropathy Obstructive sleep apnea Restless leg syndrome Chronic post-traumatic stress disorder Pulmonary embolism CKD (chronic kidney disease) Osteoarthritis of knees, bilateral Immunosuppression Psoriasis Psoriatic arthritis Surgical History History of resection of rectum H/O: hysterectomy Due to fibroids. H/O tubal ligation Colostomy in place Family History Other Cancer Social History Smoking and tobacco/nicotine status: current every day tobacco/nicotine user cigarettes Packs smoked per day: 0.5 Years cigarettes smoked: 41 [ Other cigarette details: Pt reports smoking at age 3] Alcohol intake: current Alcohol intake frequency: holidays/special occasions only Substance/Drug Use: never Lives independently: Yes Household members: none Marital status: Legally Current occupational status: disabled Do you think of yourself as: Straight/Heterosexual Current gender identity: Female Physical Exam 2 Const: COMMON NORMALS: no acute distress, patient oriented x3 and healthy appearing HENMT: COMMON NORMALS: normocephalic and atraumatic HEAD & SCALP: n ormocephalic and atraumatic Eye: COMMON NORMALS: Equal, round and reactive pupils present and EOMs intact bilaterally PUPIL: Yes Equal, round and reactive pupils present Neck/C-Spine: COMMON NORMALS: full ROM and supple Chest: COMMONS NORMALS: normal inspection of the chest Resp: COMMON NORMALS: normal respiratory effort Cardio: COMMON NORMALS: regular rate, regular rhythm and No murmurs present (Cardio) RATE: regular rate RHYTHM: regular rhythm GI: COMMON NORMALS: Normal to inspection, nondistended, normoactive bowel sounds present, Soft to palpation, non-tender and no masses PALPATION: Yes Soft to palpation Extremity: COMMON NORMALS: normal to inspection and full ROM Neuro: COMMON NORMALS: patient oriented x3, moves all extremities and no focal motor deficits Psych: COMMON NORMALS: mental status grossly normal, Normal thought process present and cooperative THOUGHT PROCESS: Normal thought process present Skin: COMMON NORMALS: no rashes or lesions noted and no wounds GENERAL SKIN EXAM: no rashes or lesions noted Course 2 Vital Signs: Vital signs: Vital Signs Temperature 98.1 F 09/30/23 11:15 Pulse Rate 74 09/30/23 11:15 Respiratory Rate 18 09/30/23 11:15 Blood Pressure 130/81 09/30/23 11:15 Pulse Oximetry 96 09/30/23 11:15 MDM - Abdominal Pain Medical Decision Making Patient presents here with abdominal pain CT shows that her small bowel obstruction is resolved blood works normal exam here is benign with minimal tenderness bowel sounds are present today she is stable for discharge follow-up with PCP return if worsening. Medical Records I reviewed the patient's medical records. Lab Data I reviewed the patient's lab results. 09/30/23 11:14 09/30/23 11:55 Labs/Radiology: Radiology Impressions Abdomen/Pelvis CT 09/30/23 11:32 IMPRESSION: 1. Improved previously described small bowel obstruction with decompression of the small bowel loops today. 2. Colostomy LEFT lower quadrant appears patent. 3. Moderate RIGHT hydronephrosis and hydroureter slightly improved compared to previous but persistent. No visualized obstructing calculi. 4. Diffuse bladder wall thickening with enhancement. Recommend correlation for cystitis. 5. Prior postoperative changes rectosigmoid. 6. Mild hepatomegaly. Laboratory Results WBC 5.22 10^3/uL (3.29-11.43) 09/30/23 11:14 RBC 4.48 10^6/uL (3.85-5.65) 09/30/23 11:14 Hgb 14.10 g/dL (11.27-16.99) 09/30/23 11:14 Hct 44.4 % (36-47) 09/30/23 11:14 MCV 99.1 fl (85-98) H 09/30/23 11:14 MCH 31.5 pg (27-33) 09/30/23 11:14 MCHC 31.8 g/dL (30-55) 09/30/23 11:14 RDW 12.9 % (12.1-15.1) 09/30/23 11:14 Plt Count 284 10^3/cmm (157-399) 09/30/23 11:14 MPV 10.1 fL (7.4-10.4) 09/30/23 11:14 Neut % (Auto) 51.0 % 09/30/23 11:14 Lymph % (Auto) 40.4 % 09/30/23 11:14 [place] % (Auto) 5.7 % 09/30/23 11:14 Eos % (Auto) 1.5 % 09/30/23 11:14 Baso % (Auto) 0.8 % 09/30/23 11:14 Neut # (Auto) 2.66 10^3/uL (1.8-7.7) 09/30/23 11:14 Lymph # (Auto) 2.1 10^3/uL (0.8-4.8) 09/30/23 11:14 [place] # (Auto) 0.3 10^3/uL (0.2-0.9) 09/30/23 11:14 Eos # (Auto) 0.1 10^3/uL (0.0-0.8) 09/30/23 11:14 Baso # (Auto) 0.0 10^3/uL (0.0-0.1) 09/30/23 11:14 Nucleated RBC % (auto) 0 % 09/30/23 11:14 Nucleated RBCs # 0.0 /100WBC 09/30/23 11:14 Sodium 141 mmol/L (136-145) 09/30/23 11:55 Potassium 3.9 mmol/L (3.5-5.1) 09/30/23 11:55 Chloride 104 mmol/L (98-107) 09/30/23 11:55 Carbon Dioxide 23 mmol/L (22-29) 09/30/23 11:55 Anion Gap 17.9 (5-19) 09/30/23 11:55 BUN 7 mg/dL (6-20) 09/30/23 11:55 Creatinine 0.7 mg/dL (0.5-0.9) 09/30/23 11:55 GFR Calculation 86.9 mL/min (90-130) L 09/30/23 11:55 Glucose 111 mg/dL (65-115) 09/30/23 11:55 Calculated Osmolality 291 mOsm/kg (285-295) 09/30/23 11:55 Calcium 9.0 mg/dL (8.5-10.5) 09/30/23 11:55 Total Bilirubin 0.6 mg/dL (0.15-1.2) 09/30/23 11:55 AST 14 U/L (0-32) 09/30/23 11:55 ALT < 5 U/L (0-33) 09/30/23 11:55 Alkaline Phosphatase 63 U/L (35-105) 09/30/23 11:55 Total Protein 7.3 g/dL (6.6-8.7) 09/30/23 11:55 Albumin 4.2 g/dL (3.5-5.2) 09/30/23 11:55 Globulin 3.1 g/dL (1.3-4.6) 09/30/23 11:55 Lipase 56 U/L (13-60) 09/30/23 11:55 Urine Color Yellow (Yellow) 09/30/23 11:25 Urine Appearance Clear (CLEAR) 09/30/23 11:25 Urine pH 6.5 (5-7) 09/30/23 11:25 Ur Specific [place] 1.002 (1.005-1.030) L 09/30/23 11:25 Urine Protein Negative (Negative) 09/30/23 11:25 Urine Glucose (UA) Negative (Normal) 09/30/23 11:25 Urine Ketones Negative (Negative) 09/30/23 11:25 Urine Blood Negative (Negative) 09/30/23 11:25 Urine Nitrate Negative (Negative) 09/30/23 11:25 Urine Bilirubin Negative (Negative) 09/30/23 11:25 Urine Urobilinogen 0.2 mg/dL (Negative) 09/30/23 11:25 Ur Leukocyte Esterase Negative (Negative) 09/30/23 11:25 Amorphous Sediment Not Reportable 09/30/23 11:25 All radiology interpretation(s) finalized by discharge Discharge Plan Discharge Patient Disposition: Home Clinical Impression: Abdominal pain Condition: Stable Prescriptions: No Action albuterol sulfate 90 mcg/actuation HFA aerosol inhaler 1 inh inhalation QID PRN (Reason: shortness of breath or wheezing) Qty: 8.5 5RF Trelegy Ellipta 100-62.5-25 mcg blister with device 1 inh inhalation DAILY Qty: 60 3RF buspirone 15 mg tablet 15 mg PO BID Qty: 60 5RF ropinirole 4 mg tablet 4 mg PO BEDTIME Qty: 30 5RF Rx Instructions: take two hours before bed gabapentin 600 mg tablet 600 mg PO BEDTIME Qty: 30 5RF paroxetine HCl [Paxil] 40 mg tablet 40 mg PO DAILY Qty: 30 4RF (DME) insulin syringe-needle U-100 [TRUEplus Insulin] 1 mL 30 gauge x 5/16 syringe See Rx Instructions .ROUTE .MEDSUPPLY Qty: 100 2RF Rx Instructions: As directed quetiapine 200 mg tablet See Rx Instructions .ROUTE .COMPLEX Qty: 30 5RF Dose Instruction: TAKE ONE TABLET BY MOUTH DAILY Rx Instructions: TAKE ONE TABLET BY MOUTH DAILY AT BEDTIME ALONG WITH 300MG PU=152VE TOTAL. (DME) Colostomy appliances and supplies See Rx Instructions .Route .MEDSUPPLY Qty: 100 0RF Rx Instructions: As directed methotrexate sodium 25 mg/mL solution 25 mg SUBCUT Q7D Qty: 10 2RF Patient Comments: pt states she is not currently taking this medication Rx Instructions: on fridays Orencia 125 mg/mL syringe See Rx Instructions .ROUTE .COMPLEX Qty: 4 1RF Dose Instruction: inject 125mg SUBCUTANEOUSLY ONCE a week Rx Instructions: inject 125mg SUBCUTANEOUSLY ONCE a week (DME) Monoject TB Safety Syringe 1 mL 25 gauge x 5/8 syringe See Rx Instructions .ROUTE .MEDSUPPLY Qty: 50 1RF Rx Instructions: As directed polyethylene glycol 3350 17 gram Powder In Packet 17 g PO DAILY Qty: 100 0RF cyanocobalamin (vitamin B-12) 5,000 mcg capsule 5,000 mcg PO DAILY Qty: 30 0RF quetiapine 300 mg tablet See Rx Instructions .ROUTE .COMPLEX Rx Instructions: TAKE ONE TABLET BY MOUTH DAILY AT BEDTIME ALONG WITH 200MG [id number] TOTAL. 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
[2023-09-30 11:34] LABS: Charge for UA Resulting for Rev
[2023-09-30 11:40] LABS: Bilirubin Urine Negative (Negative); Blood Urine Negative (Negative); Glucose Urine UA Negative (Normal); Ketones Urine Negative (Negative); Leukocyte Esterase Urine Negative (Negative); Nitrate Urine Negative (Negative); Protein Urine Negative (Negative); Specific Gravity, Urine 1.002 (1.005-1.030); Urine Appearance Clear (CLEAR); Urine Color Yellow (Yellow); Urobilinogen Urine 0.2 mg/dL (Negative); pH Urine 6.5 (5-7)
[2023-09-30] MEDS: iohexol 350 mg/mL 500 mL Btl (per mL) IV (12:12)
[2023-09-30 12:17] LABS: Alanine Aminotransferase < 5 U/L (0-33); Albumin Level 4.2 g/dL (3.5-5.2); Alkaline Phosphatase 63 U/L (35-105); Anion Gap 17.9 (5-19); Aspartate Amino Transferase 14 U/L (0-32); Blood Urea Nitrogen 7 mg/dL (6-20); Carbon Dioxide 23 mmol/L (22-29); Chloride 104 mmol/L (98-107); Creatinine Clr Calc Pharmacy 102.0388; Globulin 3.1 g/dL (1.3-4.6); Glomerular Filtration Rate 86.9 mL/min (90-130); Glucose 111 mg/dL (65-115); Lipase 56 U/L (13-60); Osmolality Calculated 291 mOsm/kg (285-295); Potassium 3.9 mmol/L (3.5-5.1); Sodium 141 mmol/L (136-145); Total Bilirubin 0.6 mg/dL (0.15-1.2); Total Protein 7.3 g/dL (6.6-8.7)
[2023-09-30 13:10] VITALS: BP 124/66; PULSE 67; O2SAT 98
== END 2023-09-30 13:14 | disposition home or self-care (01) ==
PROVIDERS: Emergency Provider Emergency Medicine
DX: R10.9 Unspecified abdominal pain (principal); F17.210 Nicotine dependence, cigarettes, uncomplicated; Z93.3 Colostomy status
CPT/HCPCS: 36415; 74177; 80053; 81003; 81015; 83690; 85025; 99285; Q9967

== ENCOUNTER → 2023-12-28 11:07 | Outpatient (BNVA) | payer MEDICARE, MEDICAID, SELFPAY | PROVIDERS: Visit Provider Internal Medicine Rheumatology | DX: Z79.899 Other long term (current) drug therapy (principal); L40.9 Psoriasis, unspecified; L40.0 Psoriasis vulgaris; L40.50 Arthropathic psoriasis, unspecified; Z71.85 Encounter for immunization safety counseling; Z93.3 Colostomy status; Z85.048 Personal history of other malignant neoplasm of rectum, rectosigmoid junction, and anus | CPT/HCPCS: 99214; 99215 ==

== ENCOUNTER → 2024-01-04 15:43 | Outpatient (BNVA) | payer MEDICARE, MEDICAID, SELFPAY | PROVIDERS: Visit Provider Orthopaedic Surgery | DX: M54.50 Low back pain, unspecified; M48.062 Spinal stenosis, lumbar region with neurogenic claudication; M54.17 Radiculopathy, lumbosacral region | CPT/HCPCS: 72110; 99214 ==

== ENCOUNTER 2024-01-16 10:49 | Emergency (ER) | payer MEDICARE, MEDICAID, SELFPAY ==
[2024-01-16 10:53] VITALS: BMI 26.9
[2024-01-16 11:56] LABS: Amphetamines Screen Urine Positive (Negative); Barbiturates Screen Urine Negative (Negative); Benzodiazepines Screen Urine Negative (Negative); Cocaine Screen Urine Negative (Negative); Opiate Screen Urine Negative (Negative); PCP Screen Urine Negative (Negative); THC Screen Urine Negative (Negative)
[2024-01-16 12:09] LABS: Basophils # 0.1 10^3/uL (0.0-0.1); Basophils % 0.8 %; Eosinophils # 0.1 10^3/uL (0.0-0.8); Eosinophils % 1.5 %; Hematocrit 42.7 % (36-47); Lymphocytes # 1.8 10^3/uL (0.8-4.8); Lymphocytes % 24.9 %; Mean Corpuscular HGB Conc 33.7 g/dL (30-55); Mean Corpuscular Hemoglobin 31.3 pg (27-33); Mean Corpuscular Volume 92.8 fl (85-98); Mean Platelet Volume 9.1 fL (7.4-10.4); Monocytes # 0.4 10^3/uL (0.2-0.9); Monocytes % 5.8 %; Neutrophils # 4.78 10^3/uL (1.8-7.7); Neutrophils % 66.4 %; Nucleated Red Blood Cells % 0 %; Platelet Count 264 10^3/cmm (157-399); Red Cell Distribution Width 13.1 % (12.1-15.1)
[2024-01-16 12:37] LABS: Alanine Aminotransferase 13 U/L (0-33); Alkaline Phosphatase 64 U/L (35-105); Anion Gap 14.9 (5-19); Aspartate Amino Transferase 17 U/L (0-32); Blood Urea Nitrogen 12 mg/dL (6-20); Carbon Dioxide 23 mmol/L (22-29); Chloride 105 mmol/L (98-107); Creatinine Clr Calc Pharmacy 91.2427; Globulin 2.6 g/dL (1.3-4.6); Glomerular Filtration Rate 74.5 mL/min (90-130); Glucose 116 mg/dL (65-115); Osmolality Calculated 289 mOsm/kg (285-295); Potassium 3.9 mmol/L (3.5-5.1); Sodium 139 mmol/L (136-145); Thyroid Stimulating Hormone 0.67 uIU/mL (0.27-4.20); Total Bilirubin 0.8 mg/dL (0.15-1.2); Total Protein 6.6 g/dL (6.6-8.7)
[2024-01-16 12:38] LABS: Acetaminophen < 5.0 ug/mL (10-30); Alcohol Level < 10 mg/dL (0-10); Salicylate < 0.3 mg/dL (3-10)
--- NOTE | 2024-01-16 12:57 | ED.C_ITS ---
HPI - Psych 2 General: Chief Complaint: Psychiatric Symptoms Stated Complaint: mhe Time Seen by Provider: 01/16/24 10:57 History of Present Illness: This patient is a 53-year-old white female who presents to the emergency department requesting to be admitted to the psychiatric unit. Patient states she is not doing well lately. She has been drinking heavy and using methamphetamine. She has not been taking her psychiatric medications. She has been having suicidal thoughts. She states I just want to go to sleep and never wake up again . No homicidal thoughts. She states she is feeling manic. She does have a history of bipolar disorder, anxiety and borderline personality disorder. She is supposed to be on buspirone, Paxil and Seroquel but has not been taking her medications as prescribed. Associated symptoms: Reports depression and suicidal ideation; Deny homicidal ideation Related Data Home Medications Medication Instructions Recorded Confirmed apixaban 5 mg tablet (Eliquis) 5 mg PO BID 09/30/23 01/16/24 Previous Rx's Medication Instructions Recorded buspirone 15 mg tablet 15 mg PO BID #60 tabs 08/14/22 gabapentin 600 mg tablet 600 mg PO BEDTIME #30 tabs 08/14/22 ropinirole 4 mg tablet 4 mg PO BEDTIME #30 tabs 08/14/22 paroxetine HCl 40 mg tablet (Paxil) 40 mg PO DAILY #30 tabs 08/26/22 Colostomy appliances and supplies #100 ea 11/12/22 albuterol sulfate 90 mcg/actuation 1 inh inhalation QID PRN shortness 01/12/23 aerosol inhaler of breath or wheezing #8.5 grams fluticasone fur. 100 mcg-umeclid 1 inh inhalation DAILY #60 ea 06/15/23 62.5 mcg-vilant 25 mcg inhalat.powder (Trelegy Ellipta) syringe with needle 1 mL 25 gauge #50 ea 07/01/23 x 5/8 (Monoject TB Safety Syringe) cyanocobalamin (vitamin B-12) 5,000 mcg PO DAILY #30 caps 09/08/23 5,000 mcg capsule insulin syringe-needle U-100 1 mL #50 ea 12/28/23 30 gauge x 5/16 (TRUEplus Insulin) methotrexate sodium 25 mg/mL 25 mg SUBCUT Q7D #10 mL 12/28/23 injection solution risankizumab-rzaa 150 mg/mL 150 mg SUBCUT .Q12W #4 mL 01/04/24 subcutaneous pen injector (Skyrizi) Allergies Allergy/AdvReac Type Severity Reaction Status Date / Time coconut oil Allergy Severe anaphylaxis Verified 12/28/23 11:43 mushroom Allergy Severe trouble Verified 12/28/23 11:43 breathing duloxetine [From Cymbalta] Allergy Intermediate dizziness,v Verified 12/28/23 11:43 omiting atorvastatin AdvReac Intermediate does not Verified 12/28/23 11:43 want to take it Review of Systems 2 General: Reports: 10 or more systems reviewed and unremarkable except in HPI and below Psych: Reports: depression, hopelessness and suicidal ideation; Denies: homicidal ideation PFSH ED 2 PFSH: Medical History Immunization counseling Plaque psoriasis Small bowel obstruction Nausea & vomiting Small bowel obstruction Obstructive sleep apnea B12 deficiency Cocaine use disorder, severe, in sustained remission Acute kidney injury Loss of hair DDD (degenerative disc disease), lumbar Lumbar spondylosis Hydronephrosis of right kidney Rectal cancer Cancer free for 14 years. Lumbar radiculitis Peripheral neuropathy Obstructive sleep apnea Restless leg syndrome Chronic post-traumatic stress disorder Pulmonary embolism CKD (chronic kidney disease) Osteoarthritis of knees, bilateral Immunosuppression Psoriasis Psoriatic arthritis Surgical History History of resection of rectum H/O: hysterectomy Due to fibroids. H/O tubal ligation Colostomy in place Family History Other Cancer Social History Smoking and tobacco/nicotine status: never used tobacco/nicotine Alcohol intake: current Alcohol intake frequency: holidays/special occasions only Substance/Drug Use: never Lives independently: Yes Household members: none Marital status: Legally Current occupational status: disabled Do you think of yourself as: Straight/Heterosexual Current gender identity: Female Physical Exam 2 Const: COMMON NORMALS: no acute distress, patient oriented x3 and no limitations GENERAL APPEARANCE: cooperative and comfortable HENMT: COMMON NORMALS: normocephalic, atraumatic, Normal nasal mucous membranes and turbinates present, moist oral mucous membranes and oropharynx normal HEAD & SCALP: normal to inspection, normocephalic and atraumatic F SOLITARIO & SINUS: normal facial exam NOSE: Normal nasal mucous membranes and turbinates present Eye: COMMON NORMALS: Equal, round and reactive pupils present, EOMs intact bilaterally and conjunctivae normal GENERAL EYE: appearance normal, both eyes and all related structures CONJUNCTIVA: Yes conjunctivae normal PUPIL: Yes Equal, round and reactive pupils present Neck/C-Spine: COMMON NORMALS: supple and no JVD Chest: COMMONS NORMALS: normal inspection of the chest Resp: COMMON NORMALS: normal respiratory effort and clear to auscultation bilaterally AUSCULTATION: clear to auscultation bilaterally Cardio: COMMON NORMALS: no JVD, regular rate, regular rhythm, No gallops present (Cardio), No murmurs present (Cardio) and No rub (Cardio) RATE: r egular rate RHYTHM: regular rhythm GI: COMMON NORMALS: Normal to inspection, nondistended, normoactive bowel sounds present, Soft to palpation and non-tender AUSCULTATION: Yes normoactive bowel sounds PALPATION: Yes Soft to palpation : COMMON NORMALS: Yes no CVA tenderness BLADDER/KIDNEY EXAM: Yes no CVA tenderness Back/Pelvis: COMMON NORMALS: no CVA tenderness and thoracic and lumbar spine normal to inspection Extremity: COMMON NORMALS: normal to inspection Neuro: COMMON NORMALS: patient oriented x3 and CN's II-XII intact bilaterally Psych: COMMON NORMALS: mental status grossly normal, Normal thought process present, cooperative and speech normal APPEARANCE: Yes grossly normal A TTITUDE: Yes calm ACTIVITY/MOTOR BEHAVIOR: Yes appropriate eye contact S PEECH: Yes normal speech MOOD & AFFECT: Yes depressed mood THOUGHT PROCESS: Normal thought process present THOUGHT CONTENT: Yes Suicidality present ATTENTION/CONCENTRATION: Yes attention grossly intact M JIMY/COGNITION: Yes memory grossly intact INSIGHT: Fair insight present (Psych) JUDGEMENT: Poor judgement present (Psych) Skin: COMMON NORMALS: no rashes or lesions noted, turgor normal and no jaundice GENERAL SKIN EXAM: no rashes or lesions noted and turgor normal MDM - Psych Medical Decision Making CBC and CMP were normal. TSH normal. Urine drug screen was positive for amphetamines. Blood alcohol level was 0. Salicylate and acetaminophen levels were 0. The psychiatric unit here is full. Patient will need to be transferred. Patient is agreeable to being transferred. [facility] has accepted the patient. Patient will be transferred as soon as the bed is available and we have transportation. She is stable. Lab Data 01/16/24 12:02 01/16/24 12:02 Laboratory Results WBC 7.20 10^3/uL (3.29-11.43) 01/16/24 12:02 RBC 4.60 10^6/uL (3.85-5.65) 01/16/24 12:02 Hgb 14.40 g/dL (11.27-16.99) 01/16/24 12:02 Hct 42.7 % (36-47) 01/16/24 12:02 MCV 92.8 fl (85-98) 01/16/24 12:02 MCH 31.3 pg (27-33) 01/16/24 12:02 MCHC 33.7 g/dL (30-55) 01/16/24 12:02 RDW 13.1 % (12.1-15.1) 01/16/24 12:02 Plt Count 264 10^3/cmm (157-399) 01/16/24 12:02 MPV 9.1 fL (7.4-10.4) 01/16/24 12:02 Neut % (Auto) 66.4 % 01/16/24 12:02 Lymph % (Auto) 24.9 % 01/16/24 12:02 [place] % (Auto) 5.8 % 01/16/24 12:02 Eos % (Auto) 1.5 % 01/16/24 12:02 Baso % (Auto) 0.8 % 01/16/24 12:02 Neut # (Auto) 4.78 10^3/uL (1.8-7.7) 01/16/24 12:02 Lymph # (Auto) 1.8 10^3/uL (0.8-4.8) 01/16/24 12:02 [place] # (Auto) 0.4 10^3/uL (0.2-0.9) 01/16/24 12:02 Eos # (Auto) 0.1 10^3/uL (0.0-0.8) 01/16/24 12:02 Baso # (Auto) 0.1 10^3/uL (0.0-0.1) 01/16/24 12:02 Nucleated RBC % (auto) 0 % 01/16/24 12:02 Nucleated RBCs # 0.0 /100WBC 01/16/24 12:02 Sodium 139 mmol/L (136-145) 01/16/24 12:02 Potassium 3.9 mmol/L (3.5-5.1) 01/16/24 12:02 Chloride 105 mmol/L (98-107) 01/16/24 12:02 Carbon Dioxide 23 mmol/L (22-29) 01/16/24 12:02 Anion Gap 14.9 (5-19) 01/16/24 12:02 BUN 12 mg/dL (6-20) 01/16/24 12:02 Creatinine 0.8 mg/dL (0.5-0.9) 01/16/24 12:02 GFR Calculation 74.5 mL/min (90-130) L 01/16/24 12:02 Glucose 116 mg/dL (65-115) H 01/16/24 12:02 Calculated Osmolality 289 mOsm/kg (285-295) 01/16/24 12:02 Calcium 9.0 mg/dL (8.5-10.5) 01/16/24 12:02 Total Bilirubin 0.8 mg/dL (0.15-1.2) 01/16/24 12:02 AST 17 U/L (0-32) 01/16/24 12:02 ALT 13 U/L (0-33) 01/16/24 12:02 Alkaline Phosphatase 64 U/L (35-105) 01/16/24 12:02 Total Protein 6.6 g/dL (6.6-8.7) 01/16/24 12:02 Albumin 4.0 g/dL (3.5-5.2) 01/16/24 12:02 Globulin 2.6 g/dL (1.3-4.6) 01/16/24 12:02 TSH 0.67 uIU/mL (0.27-4.20) 01/16/24 12:02 Urine Color Yellow (Yellow) 01/16/24 11:34 Urine Appearance Clear (CLEAR) 01/16/24 11:34 Urine pH 6.0 (5-7) 01/16/24 11:34 Ur Specific [place] 1.018 (1.005-1.030) 01/16/24 11:34 Urine Protein Negative (Negative) 01/16/24 11:34 Urine Glucose (UA) Negative (Normal) 01/16/24 11:34 Urine Ketones Negative (Negative) 01/16/24 11:34 Urine Blood Negative (Negative) 01/16/24 11:34 Urine Nitrate Negative (Negative) 01/16/24 11:34 Urine Bilirubin Negative (Negative) 01/16/24 11:34 Urine Urobilinogen 1.0 mg/dL (Negative) 01/16/24 11:34 Ur Leukocyte Esterase Trace (Negative) A 01/16/24 11:34 Urine RBC 0-2 /hpf (0-2) 01/16/24 11:34 Urine WBC 0-5 /hpf (0-5) 01/16/24 11:34 Ur Squamous Epith Cells 0-5 /hpf (0-5) 01/16/24 11:34 Amorphous Sediment Not Reportable 01/16/24 11:34 Urine Bacteria None seen /hpf (NONE) 01/16/24 11:34 Hyaline Casts 1.21 /lpf 01/16/24 11:34 Salicylates < 0.3 mg/dL (3-10) L 01/16/24 12:02 Urine Opiates Screen Negative ng/mL (Negative) 01/16/24 11:34 Acetaminophen < 5.0 ug/mL (10-30) L 01/16/24 12:02 Ur Barbiturates Screen Negative ng/mL (Negative) 01/16/24 11:34 Ur Phencyclidine Scrn Negative ng/mL (Negative) 01/16/24 11:34 Ur Amphetamines Screen Positive ng/mL (Negative) H 01/16/24 11:34 U Benzodiazepines Scrn Negative ng/mL (Negative) 01/16/24 11:34 Urine Cocaine Screen Negative ng/mL (Negative) 01/16/24 11:34 U Marijuana (THC) Screen Negative ng/mL (Negative) 01/16/24 11:34 Ethyl Alcohol < 10 mg/dL (0-10) 01/16/24 12:02 Coronavirus (PCR) Negative (Negative) 01/16/24 13:01 Influenza A (PCR) Negative (Negative) 01/16/24 13:01 Influenza Type B (PCR) Negative (Negative) 01/16/24 13:01 RSV (PCR) Negative (Negative) 01/16/24 13:01 No radiology studies performed this visit Discharge Plan Discharge Patient Disposition: Xfer Psychiatric Hosp Clinical Impression: Suicidal ideation Condition: Stable Prescriptions: No Action albuterol sulfate 90 mcg/actuation HFA aerosol inhaler 1 inh inhalation QID PRN (Reason: shortness of breath or wheezing) Qty: 8.5 5RF Trelegy Ellipta 100-62.5-25 mcg blister with device 1 inh inhalation DAILY Qty: 60 3RF buspirone 15 mg tablet 15 mg PO BID Qty: 60 5RF ropinirole 4 mg tablet 4 mg PO BEDTIME Qty: 30 5RF Rx Instructions: take two hours before bed gabapentin 600 mg tablet 600 mg PO BEDTIME Qty: 30 5RF paroxetine HCl [Paxil] 40 mg tablet 40 mg PO DAILY Qty: 30 4RF methotrexate sodium 25 mg/mL solution 25 mg SUBCUT Q7D Qty: 10 1RF Patient Comments: pt states she is not currently taking this medication Rx Instructions: on fridays (DME) insulin syringe-needle U-100 [TRUEplus Insulin] 1 mL 30 gauge x 5/16 syringe See Rx Instructions .ROUTE .MEDSUPPLY Qty: 50 1RF Rx Instructions: As directed (DME) Colostomy appliances and supplies See Rx Instructions .Route .MEDSUPPLY Qty: 100 0RF Rx Instructions: As directed (DME) Monoject TB Safety Syringe 1 mL 25 gauge x 5/8 syringe See Rx Instructions .ROUTE .MEDSUPPLY Qty: 50 1RF Rx Instructions: As directed Skyrizi 150 mg/mL pen injector 150 mg SUBCUT .Q12W Qty: 4 5RF Rx Instructions: subcutaneous injection at Week 0, Week 4, and every 12 weeks thereafter cyanocobalamin (vitamin B-12) 5,000 mcg capsule 5,000 mcg PO DAILY Qty: 30 0RF Eliquis 5 mg Tablet 5 mg PO BID Referrals: Brii Borden NP [Primary Care Provider] - Coding Level of Care Code ED 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
--- NOTE | 2024-01-16 13:13 | PC.NURSE ---
this nurse assumed pt care at 1311 from Christina MAXWELL.
[2024-01-16 13:45] LABS: Covid PCR NEGATIVE (Negative); Influenza A NEGATIVE (Negative); Influenza B NEGATIVE (Negative); Respiratory Syncytial Virus Ce NEGATIVE (Negative)
[2024-01-16 13:52] LABS: Bilirubin Urine Negative (Negative); Blood Urine Negative (Negative); Glucose Urine UA Negative (Normal); Ketones Urine Negative (Negative); Leukocyte Esterase Urine Trace (Negative); Nitrate Urine Negative (Negative); Protein Urine Negative (Negative); Specific Gravity, Urine 1.018 (1.005-1.030); Urine Appearance Clear (CLEAR); Urine Color Yellow (Yellow)
[2024-01-16 13:55] LABS: Add Urine Microscopic? YES; Bacteria Urine None Seen /hpf; Hyaline Casts Urine 1.21 /lpf; RBC Urine 0-2 /hpf (0-2); Squamous Epithelial Cell Urine 0-5 /hpf (0-5); WBC Urine 0-5 /hpf (0-5)
[2024-01-16 15:00] VITALS: BP 103/60; PULSE 58; RESP 16; TEMP 36.8; O2SAT 97
[2024-01-16 15:53] VITALS: BP 105/62; PULSE 56; RESP 16; O2SAT 98
== END 2024-01-16 15:49 ==
PROVIDERS: Emergency Provider Emergency Medicine
DX: R45.851 Suicidal ideations (principal); Z79.4 Long term (current) use of insulin; Z79.01 Long term (current) use of anticoagulants; Z11.52 Encounter for screening for COVID-19; N18.9 Chronic kidney disease, unspecified
CPT/HCPCS: 0241U; 80053; 80306; 80307; 81001; 84443; 85025; 99283

== ENCOUNTER 2024-01-25 10:47 | Outpatient (CLI) | payer MEDICARE, MEDICAID, SELFPAY ==
--- NOTE | 2024-01-25 11:00 | MR_ITS ---
WS: [id number] MRI LUMBAR SPINE NONCONTRAST TECHNIQUE: Sagittal T1, T2 and STIR imaging. Axial T1 and T2 imaging. CLINICAL INFORMATION: back pain COMPARISON: MRI 07/10/2022 FINDINGS: Mild lumbar curve. No acute compression. No high-grade central canal stenosis. Small amount of edema in the LEFT sacral ala partially visualized. This could be further evaluated with sacral MRI L1-L2: Normal. L2-L3: Mild facet arthropathy. Spinal canal and foramen are patent. L3-L4: Mild annular bulging. Slight effacement of ventral thecal sac. Mild LEFT and no significant RI GHT foraminal narrowing. Mild facet arthropathy. L4-L5: Mild annular bulging. Slight effacement of the ventral thecal sac. Slight narrowing LEFT subar ticular recess. Mild RIGHT and no significant LEFT foraminal narrowing. Mild facet arthropathy. L5-S1: Mild annular bulging with impingement on the LEFT S1 nerve root in the subarticular recess. Mo derate LEFT foraminal narrowing. RIGHT foramen is patent. Moderate facet arthropathy. Visualized pelvic bony structures: Normal. Paravertebral soft tissues: Normal. MR/MR lumbar spine wo con* [id number] IMPRESSION: 1. Mild lumbar curve. No acute compression. No high-grade central canal stenos is. 2. Mild annular bulging L4-5 impinges the LEFT subarticular recess 3. Mild annular bulge L5-S1 impinges the traversing LEFT S1 nerve root in the subarticular recess. 4. Moderate LEFT L5-S1 foraminal narrowing. 5. Small amount of T2 signal normality in the LEFT sacral ala is indeterminate . This could be further evaluated with sacral MRI. 6. No other acute findings.
== END 2024-01-25 10:48 | disposition home or self-care (01) ==
LOC: RAD 10:48
PROVIDERS: Visit Provider Orthopaedic Surgery
DX: M99.63 Osseous and subluxation stenosis of intervertebral foramina of lumbar region (principal); M47.896 Other spondylosis, lumbar region
CPT/HCPCS: 72148

== ENCOUNTER → 2024-02-08 08:42 | Outpatient (BNVA) | payer MEDICARE, MEDICAID, SELFPAY | PROVIDERS: Visit Provider Orthopaedic Surgery | DX: Z09 Encounter for follow-up examination after completed treatment for conditions other than malignant neoplasm (principal) | CPT/HCPCS: 36415; 80053; 81003; 85025; 99214 ==

== ENCOUNTER 2024-03-23 20:13 | Inpatient (IN) | payer MEDICARE, MEDICAID, SELFPAY ==
[2024-03-23] VITALS (16 sets, daily range): BP systolic 100–122; BP diastolic 49–72; PULSE 60–69; RESP 12–26; TEMP 36.6; O2SAT 93–100; BMI 24.6
--- NOTE | 2024-03-23 20:20 | XRR_ITS ---
PROCEDURE INFORMATION: Exam: XR Abdomen Exam date and time: 03/23/2024 8:43 PM Age: 54 years old Clinical indication: Abdominal pain; Flank; Right lower quadrant (rlq); Prior surgery; Surgery date: 6+ months; Surgery type: Colon cancer HX; Additional info: Abd pain TECHNIQUE: Imaging protocol: Radiologic exam of the abdomen. Views: Frontal supine view of the abdomen. 1 View. COMPARISON: CT abdomen pelvis w con* [id number] 09/30/2023 12:06 PM FINDINGS: Gastrointestinal tract: A left lower quadrant ostomy present. The bowel gas pattern is nonobstructive. Intraperitoneal space: Multiple surgical clips involve the left abdomen. Vasculature: Multiple calcified pelvic phleboliths. No suspicious pathologic calcification. Bones/joints: No acute bony abnormality. XR/XR abdomen 1V* [id number] IMPRESSION: No acute abnormality.
--- NOTE | 2024-03-23 20:21 | W.ED.ABDPA2 ---
HPI - Abdominal Pain General: Chief Complaint: Abdominal Pain Stated Complaint: ABD Pain Time Seen by Provider: 03/23/24 20:14 History of Present Illness: 54-year-old female with a history of plaque psoriasis, history of colorectal cancer status post surgeries and also with a history of small bowel obstruction since then, obstructive sleep apnea, peripheral neuropathy, chronic kidney disease who presents emergency room with right lower quadrant abdominal pain rating to her umbilicus. She has had some nausea. No vomiting. This started today. Worsened over the last couple hours. She presents by ambulance. She received fentanyl en route. Related Data Previous Rx's Medication Instructions Recorded paroxetine HCl 40 mg tablet (Paxil) 40 mg PO DAILY #30 tabs 08/26/22 Colostomy appliances and supplies #100 ea 11/12/22 albuterol sulfate 90 mcg/actuation 1 inh inhalation QID PRN shortness 01/12/23 aerosol inhaler of breath or wheezing #8.5 grams fluticasone fur. 100 mcg-umeclid 1 inh inhalation DAILY #60 ea 06/15/23 62.5 mcg-vilant 25 mcg inhalat.powder (Trelegy Ellipta) syringe with needle 1 mL 25 gauge #50 ea 07/01/23 x 5/8 (Monoject TB Safety Syringe) cyanocobalamin (vitamin B-12) 5,000 mcg PO DAILY #30 caps 09/08/23 5,000 mcg capsule insulin syringe-needle U-100 1 mL #50 ea 12/28/23 30 gauge x 5/16 (TRUEplus Insulin) methotrexate sodium 25 mg/mL 25 mg SUBCUT Q7D #10 mL 12/28/23 injection solution risankizumab-rzaa 150 mg/mL 150 mg SUBCUT .Q12W #4 mL 01/04/24 subcutaneous pen injector (Skyrizi) diazepam 5 mg tablet (Valium) 5 mg PO BID anxiety #2 tabs 01/24/24 apixaban 5 mg tablet (Eliquis) 5 mg PO BID #60 tabs 02/10/24 cetirizine 10 mg capsule (Zyrtec) 10 mg PO DAILY PRN allergy 02/10/24 symptoms #30 caps buspirone 15 mg tablet 15 mg PO BID #60 tabs 03/13/24 gabapentin 600 mg tablet 600 mg PO BEDTIME #30 tabs 03/13/24 quetiapine 200 mg tablet (Seroquel) 200 mg PO DAILY #30 tabs 03/13/24 ropinirole 4 mg tablet 4 mg PO BEDTIME #30 tabs 03/13/24 Allergies Allergy/AdvReac Type Severity Reaction Status Date / Time coconut oil Allergy Severe anaphylaxis Verified 02/10/24 15:07 mushroom Allergy Severe trouble Verified 02/10/24 15:07 breathing duloxetine [From Cymbalta] Allergy Intermediate dizziness,v Verified 02/10/24 15:07 omiting atorvastatin AdvReac Intermediate does not Verified 02/10/24 15:07 want to take it Review of Systems Narrative: Constitutional symptoms: Negative except as documented in HPI. Skin symptoms: Negative except as documented in HPI. Eye symptoms: Negative except as documented in HPI. ENMT symptoms: Negative except as documented in HPI. Respiratory symptoms: Negative except as documented in HPI. Cardiovascular symptoms: Negative except as documented in HPI. Gastrointestinal symptoms: Negative except as documented in HPI. Genitourinary symptoms: Negative except as documented in HPI. Musculoskeletal symptoms: Negative except as documented in HPI. Neurologic symptoms: Negative except as documented in HPI. Psychiatric symptoms: Negative except as documented in HPI. Endocrine symptoms: Negative except as documented in HPI. PFSH ED PFSH: Medical History Immunization counseling Plaque psoriasis Small bowel obstruction Nausea & vomiting Small bowel obstruction Obstructive sleep apnea B12 deficiency Cocaine use disorder, severe, in sustained remission Acute kidney injury Loss of hair DDD (degenerative disc disease), lumbar Lumbar spondylosis Hydronephrosis of right kidney Rectal cancer Cancer free for 14 years. Lumbar radiculitis Peripheral neuropathy Obstructive sleep apnea Restless leg syndrome Chronic post-traumatic stress disorder Pulmonary embolism CKD (chronic kidney disease) Osteoarthritis of knees, bilateral Immunosuppression Psoriasis Psoriatic arthritis Surgical History History of resection of rectum H/O: hysterectomy Due to fibroids. H/O tubal ligation Colostomy in place Family History Other Cancer Social History Smoking and tobacco/nicotine status: current every day tobacco/nicotine user cigarettes Packs smoked per day: 0.5 Years cigarettes smoked: 41 [ Other cigarette details: Pt reports smoking at age 3] Alcohol intake: current Alcohol intake frequency: holidays/special occasions only Substance/Drug Use: never Lives independently: Yes Household members: none Marital status: Legally Current occupational status: disabled Do you think of yourself as: Straight/Heterosexual Current gender identity: Female Physical Exam Narrative: EXAM NARRATIVE: General: Alert, no acute distress. Skin: Warm, dry. Head: Normocephalic, atraumatic. Neck: Supple, trachea midline. Eye: Extraocular movements are intact. Ears, nose, mouth and throat: mucosa moist. Cardiovascular: Regular, Normal peripheral perfusion. Respiratory: Lungs are clear to auscultation, respirations are non-labored, breath sounds are equal, Symmetrical chest wall expansion. Gastrointestinal: Soft, right lower quadrant tenderness, Non distended Musculoskeletal: Normal ROM, no deformity. Neurological: Alert and oriented, No focal neurological deficit observed. Psychiatric: Cooperative, appropriate mood & affect. Course Vital Signs: Vital signs: Vital Signs Temperature 97.9 F 03/23/24 20:14 Pulse Rate 61 03/23/24 20:14 Respiratory Rate 18 03/23/24 20:14 Blood Pressure 113/72 03/23/24 20:14 Pulse Oximetry 100 03/23/24 20:14 Oxygen Delivery Me thod Room Air 03/23/24 20:14 MDM - Abdominal Pain Medical Decision Making Medical decision making: Differential diagnosis for this patient with right lower quadrant abdominal pain including but not limited to and based on the above HPI, review of systems and physical exam: Ureterolithiasis. Urinary tract infection. Appendicitis. colitis. small bowel obstruction. Crohn's flare. Pancreatitis. Cholelithiasis or cholecystitis. Hepatitis. Diverticulitis. Constipation. ovarian cyst. ovarian torsion Workup: Orders were placed to evaluate differential diagnosis based on the above differential, HPI and exam: Abdomen x-ray: Nonspecific bowel gas pattern. No evidence of free air or obstruction. This was reviewed and interpreted by myself the emergency room physician. I also reviewed the radiology report. Lab Review: Laboratory results were reviewed and interpreted by myself the emergency room physician. Lab work is fairly unremarkable. No leukocytosis. No anemia. No renal failure. Sodium is normal. Lipase is normal. CT of the abdomen pelvis with contrast: This was ordered despite normal labs and normal x-ray given her history of small bowel obstructions and her presentation. This did show some dilated loops of small bowel without a definitive transition point which would indicate a probable early small bowel obstruction. Chronic hydroureter. This was reviewed and interpreted by myself the emergency room physician. I also reviewed the radiology report. I reviewed the patient's medical record Reexamination: NG tube being placed. Patient has remained stable. Toradol helped some with pain. She is being given Dilaudid for the NG tube placement. Consultation: I spoke with Dr. Sheppard who is on-call for general surgery. He recommends 150 mL an hour of maintenance fluids and an NG tube placement. Admission to the hospitalist service. Consultation: I spoke with Dr. Bains who agrees to admission to the hospitalist service. Assessment and plan: Small bowel obstruction ?Starting IV fluids. IV Toradol. IV Zofran. IV Dilaudid. NG tube placement -I discussed the patient with the hospitalist on-call who is admitting the patient. - Discussed findings and plan with patient. Answered any questions. - All laboratory values were reviewed and interpreted personally by myself, the ER physician - All imaging was reviewed and interpreted personally by myself, the ER physician. - Evaluation and treatment of this problem were appropriate in the emergency setting Lab Data 03/23/24 20:28 03/23/24 20:28 Labs/Radiology: Radiology Impressions Abdomen X-Ray 03/23/24 20:20 IMPRESSION: No acute abnormality. Abdomen/Pelvis CT 03/23/24 21:28 IMPRESSION: 1. Multiple dilated loops of small bowel without definitive transition point. These findings are concerning for a developing partial small bowel obstruction. Close attention on follow-up imaging recommended. 2. Awqf-sd-gpnvhrvy right-sided hydronephrosis and hydroureter. This finding is chronic and may be related to right distal ureteral fibrosis. 3. Mild diffuse urinary bladder wall thickening. Clinical correlation for cystitis recommended. Laboratory Results WBC 9.53 10^3/uL (3.29-11.43) 03/23/24 20: RBC 4.25 10^6/uL (3.85-5.65) 03/23/24 20: Hgb 13.40 g/dL (11.27-16.99) 03/23/24 20: Hct 39.3 % (36-47) 03/23/24 MCV 92.5 fl (85-98) 03/23/24: MCH 31.5 pg (27-33) 03/23/24 MCHC 34.1 g/dL (30-55) 03/23/24 RDW 12.6 % (12.1-15.1) 03/23/24 Plt Count 256 10^3/cmm (157-399) 03/23/24 MPV 9.6 fL (7.4-10.4) 03/23/24 Neut % (Auto) 71.3 % 03/23/24: Lymph % (Auto) 22.4 % 03/23/24 [place] % (Auto) 4.2 % 03/23/24 Eos % (Auto) 1.3 % 03/23/24 Baso % (Auto) 0.5 % 03/23/24 Neut # (Auto) 6.80 10^3/uL (1.8-7.7) 03/23/24 Lymph # (Auto) 2.1 10^3/uL (0.8-4.8) 03/23/24 [place] # (Auto) 0.4 10^3/uL (0.2-0.9) 03/23/24 Eos # (Auto) 0.1 10^3/uL (0.0-0.8) 03/23/24 Baso # (Auto) 0.1 10^3/uL (0.0-0.1) 03/23/24 Nucleated RBC % (auto) 0 % 03/23/24 Nucleated RBCs # 0.0 /100WBC 03/23/24 Sodium 139 mmol/L (136-145) 03/23/24 Potassium 4.2 mmol/L (3.5-5.1) 03/23/24 Chloride 103 mmol/L (98-107) 03/23/24 Carbon Dioxide 23 mmol/L (22-29) 03/23/24 Anion Gap 17.2 (5-19) 01/23/25 20:28 BUN 14 mg/dL (6-20) 03/23/24 20:28 Creatinine 0.5 mg/dL (0.5-0.9) 03/23/24 20:28 GFR Calculation 127.6 mL/min (90-130) 03/23/24 20:28 Glucose 96 mg/dL (65-115) 03/23/24 20:28 Calculated Osmolality 288 mOsm/kg (285-295) 03/23/24 20: Lactic Acid 1.7 mmol/L (0.5-2.2) 03/23/24 20:28 Calcium 9.7 mg/dL (8.5-10.5) 03/23/24 20:28 Total Bilirubin 0.4 mg/dL (0.15-1.2) 03/23/24 20: AST 13 U/L (0-32) 03/23/24 20:28 ALT 9 U/L (0-33) 03/23/24 20:28 Alkaline Phosphatase 59 U/L (35-105) 03/23/24 20:28 C-Reactive Protein 9.4 mg/L (0.0-4.9) H 03/23/24 20:28 Total Protein 7.1 g/dL (6.6-8.7) 03/23/24 20:28 Albumin 4.0 g/dL (3.5-5.2) 03/23/24 20:28 Globulin 3.1 g/dL (1.3-4.6) 03/23/24 20:28 Lipase 50 U/L (13-60) 03/23/24 20:28 All radiology interpretation(s) finalized by discharge Discharge Plan Discharge Patient Disposition: Admitted As Inpatient Clinical Impression: Small bowel obstruction Condition: Stable Coding Level of Care Code ED Toy Mechanic for Vicente Tobin
[2024-03-23 20:47] LABS: Basophils # 0.1 10^3/uL (0.0-0.1); Basophils % 0.5 %; Eosinophils # 0.1 10^3/uL (0.0-0.8); Eosinophils % 1.3 %; Hematocrit 39.3 % (36-47); Lymphocytes # 2.1 10^3/uL (0.8-4.8); Lymphocytes % 22.4 %; Mean Corpuscular HGB Conc 34.1 g/dL (30-55); Mean Corpuscular Hemoglobin 31.5 pg (27-33); Mean Corpuscular Volume 92.5 fl (85-98); Mean Platelet Volume 9.6 fL (7.4-10.4); Monocytes # 0.4 10^3/uL (0.2-0.9); Monocytes % 4.2 %; Neutrophils % 71.3 %; Nucleated Red Blood Cells % 0 %; Platelet Count 256 10^3/cmm (157-399); Red Blood Count 4.25 10^6/uL (3.85-5.65); Red Cell Distribution Width 12.6 % (12.1-15.1); White Blood Count 9.53 10^3/uL (3.29-11.43)
[2024-03-23] MEDS: ketorolac 30 mg/mL INJ IVP (20:53)
[2024-03-23 21:03] LABS: Lactic Sepsis W/Reflex 1.7 mmol/L (0.5-2.2)
[2024-03-23 21:04] LABS: Alanine Aminotransferase 9 U/L (0-33); Alkaline Phosphatase 59 U/L (35-105); Anion Gap 17.2 (5-19); Aspartate Amino Transferase 13 U/L (0-32); Blood Urea Nitrogen 14 mg/dL (6-20); C Reactive Protein 9.4 mg/L (0.0-4.9); Calcium 9.7 mg/dL (8.5-10.5); Carbon Dioxide 23 mmol/L (22-29); Chloride 103 mmol/L (98-107); Globulin 3.1 g/dL (1.3-4.6); Glomerular Filtration Rate 127.6 mL/min (90-130); Glucose 96 mg/dL (65-115); Lipase 50 U/L (13-60); Osmolality Calculated 288 mOsm/kg (285-295); Potassium 4.2 mmol/L (3.5-5.1); Sodium 139 mmol/L (136-145); Total Bilirubin 0.4 mg/dL (0.15-1.2); Total Protein 7.1 g/dL (6.6-8.7)
--- NOTE | 2024-03-23 21:28 | CTR_ITS ---
PROCEDURE INFORMATION: Exam: CT Abdomen And Pelvis With Contrast Exam date and time: 03/23/2024 9:45 PM Age: 54 years old Clinical indication: Abdominal pain; Generalized; Prior surgery; Surgery date: 6+ months; Surgery type: Resection HX of colon CA TECHNIQUE: Imaging protocol: Computed tomography of the abdomen and pelvis with contrast. Radiation optimization: All CT scans at this facility use at least one of these dose optimization techniques: automated exposure control; mA and/or kV adjustment per patient size (includes targeted exams where dose is matched to clinical indication); or iterative reconstruction. Contrast material: OMNI 350; Contrast volume: 80 ml; Contrast route: INTRAVENOUS (IV); COMPARISON: CT abdomen pelvis w con* [id number] 09/30/2023 12:06 PM RADIATION DOSE METRICS: Total DLP (mGy-cm): 559.22 FINDINGS: Liver: Normal. No mass. Gallbladder and biliary ducts: Normal. No calcified stones. No ductal dilation. Pancreas: Normal. No ductal dilation. Spleen: Normal. No splenomegaly. Adrenal glands: Normal. No mass. Kidneys and ureters: There is mild to moderate right-sided hydronephrosis and hydroureter. No ureteral stones. The left kidney is mildly atrophic. Stomach and bowel: A left lower quadrant ostomy present. Postsurgical changes from a rectosigmoid colon resection. There are multiple dilated loops of small bowel without definitive transition point. Appendix: No evidence of appendicitis. Intraperitoneal space: Unremarkable. No free air. No significant fluid collection. Vasculature: Scattered calcific plaque involves the abdominal aorta. Lymph nodes: Unremarkable. No enlarged lymph nodes. Urinary bladder: The urinary bladder demonstrates mild wall thickening. Reproductive: The uterus is surgically absent. Bones/joints: Postradiation changes involve the sacrum. Multilevel degenerative changes involve the spine. No acute fracture. Soft tissues: Unremarkable. CT/CT abdomen pelvis w con* [id number] IMPRESSION: 1. Multiple dilated loops of small bowel without definitive transition point. These findings are concerning for a developing partial small bowel obstruction. Close attention on follow-up imaging recommended. 2. Kzgo-sj-exbytcev right-sided hydronephrosis and hydroureter. This finding is chronic and may be related to right distal ureteral fibrosis. 3. Mild diffuse urinary bladder wall thickening. Clinical correlation for cystitis recommended.
[2024-03-23] MEDS: iohexol 350 mg/mL 500 mL Btl (per mL) IV (21:50)
--- NOTE | 2024-03-23 23:03 | P.HP_ITS ---
Providers/Chief Complaint 2 Admitting Physician: Juventino Bains MD Primary Care Provider: Brii Borden NP Chief Complaint: ABD Pain History of Present Illness Maura Hermosillo is a 54 yo w/ hx of Stage III rectal cancer s/p resection of the rectum w/ diverting colostomy in 2008 and adjuvant chemo, PE in 2019, Restless leg syndrome, EDGARD not on CPAP, chronic back pain who presented to the ED on 03/23/2024 w/ complaints of abdominal pain since the morning. The abd pain was sharp and progressive, to the point that it made her nauseous, so she called 911. She denies emesis. EMS gave her Zofran which helped. She states that she had a BM and passed flatus b/c she changed her colostomy bag several times. She denies melenic stools or hematochezia. She also denies dysuria, hematuria, increased urinary urgency/frequency, fever, chills, dizziness, light headedness, syncope. In the ED, her vital signs were significant for tachypnea to 26breaths/min. An abdominal x-ray was done that showed no acute abnormalities; hence, a CT abd/pelvis was done that showed concerns for developing partial SBO without a definitive transition point. Also noted on the CT abd/pelvis was a mild to moderate R. sided hydronephrosis and hydroureter, which was deemed chronic and possibly related to a R. Distal ureteral fibrosis. Urinary bladder wall thickening concerning for cystitis was also noted. BCx and a UA were ordered. General surgeon on-call was consulted, who recommended admission, initiation of NS at 150 cc/h, and a consult placed to him. Review of Systems 2 Const: Denies: fever(s), chills or change in appetite Eyes: Denies: change in vision ENMT: Denies: odynophagia, ear or mastoid pain, ear discharge, nasal discharge or nasal congestion Card: Reports: swelling of feet/ankles; Denies: chest pain or palpitations Resp: Denies: dyspnea, non-productive cough or wheezing GI: Reports: abdominal pain, nausea and vomiting; Denies: diarrhea or constipation : Denies: difficulty voiding, dysuria, urinary frequency or hematuria Musc: Reports: joint pain Skin/Breast: Denies: rash or new lesions Neuro: Reports: other (no syncope); Denies: headache(s) or dizziness Psych: Reports: anxiety and depression; Denies: suicidal ideation or homicidal ideation Endo: Denies: cold intolerance or heat intolerance Alcon/Lymph: Reports: easy bruising (on anticoagulation) and easy bleeding (on anticoagulation) Medications/Allergies Home Medications Medication Instructions Recorded Confirmed Last Taken Type paroxetine HCl 40 mg tablet (Paxil) 40 mg PO DAILY #30 tabs 08/26/22 02/10/24 01/13/24 Rx Colostomy appliances and supplies #100 ea 11/12/22 02/10/24 Unknown Rx albuterol sulfate 90 mcg/actuation 1 inh inhalation QID PRN shortness 01/12/23 02/10/24 01/13/24 Rx aerosol inhaler of breath or wheezing #8.5 grams fluticasone fur. 100 mcg-umeclid 1 inh inhalation DAILY #60 ea 06/15/23 02/10/24 01/13/24 Rx 62.5 mcg-vilant 25 mcg inhalat.powder (Trelegy Ellipta) syringe with needle 1 mL 25 gauge #50 ea 07/01/23 02/10/24 Unknown Rx x 5/8 (Monoject TB Safety Syringe) cyanocobalamin (vitamin B-12) 5,000 mcg PO DAILY #30 caps 09/08/23 02/10/24 01/13/24 Rx 5,000 mcg capsule insulin syringe-needle U-100 1 mL #50 ea 12/28/23 02/10/24 Unknown Rx 30 gauge x 5/16 (TRUEplus Insulin) methotrexate sodium 25 mg/mL 25 mg SUBCUT Q7D #10 mL 12/28/23 02/10/24 01/13/24 Rx injection solution risankizumab-rzaa 150 mg/mL 150 mg SUBCUT .Q12W #4 mL 01/04/24 02/10/24 Unknown Rx subcutaneous pen injector (Skyrizi) diazepam 5 mg tablet (Valium) 5 mg PO BID anxiety #2 tabs 01/24/24 02/10/24 Unknown Rx apixaban 5 mg tablet (Eliquis) 5 mg PO BID #60 tabs 02/10/24 02/10/24 Unknown Rx cetirizine 10 mg capsule (Zyrtec) 10 mg PO DAILY PRN allergy 02/10/24 02/10/24 Unknown Rx symptoms #30 caps buspirone 15 mg tablet 15 mg PO BID #60 tabs 03/13/24 Unknown Rx gabapentin 600 mg tablet 600 mg PO BEDTIME #30 tabs 03/13/24 Unknown Rx quetiapine 200 mg tablet (Seroquel) 200 mg PO DAILY #30 tabs 03/13/24 Unknown Rx ropinirole 4 mg tablet 4 mg PO BEDTIME #30 tabs 03/13/24 Unknown Rx Allergies Allergy/AdvReac Type Severity Reaction Status Date / Time coconut oil Allergy Severe anaphylaxis Verified 02/10/24 15:07 mushroom Allergy Severe trouble Verified 02/10/24 15:07 breathing duloxetine [From Cymbalta] Allergy Intermediate dizziness,v Verified 02/10/24 15:07 omiting atorvastatin AdvReac Severe Rhabdomyoly Verified 03/24/24 06:27 sis PFSH Acute 2 PFSH: Medical History Immunization counseling Plaque psoriasis Small bowel obstruction Nausea & vomiting Small bowel obstruction Obstructive sleep apnea B12 deficiency Cocaine use disorder, severe, in sustained remission Acute kidney injury Loss of hair DDD (degenerative disc disease), lumbar Lumbar spondylosis Hydronephrosis of right kidney Rectal cancer Cancer free for 14 years. Lumbar radiculitis Peripheral neuropathy Obstructive sleep apnea Restless leg syndrome Chronic post-traumatic stress disorder Pulmonary embolism CKD (chronic kidney disease) Osteoarthritis of knees, bilateral Immunosuppression Psoriasis Psoriatic arthritis Surgical History History of resection of rectum H/O: hysterectomy Due to fibroids. H/O tubal ligation Colostomy in place Family History (Updated 03/24/24 @ 06:46 by Alyssa Bains MD) Mother Cancer Social History (Updated 03/24/24 @ 06:46 by Alyssa Bains MD) Smoking and tobacco/nicotine status: current every day tobacco/nicotine user cigarettes Packs smoked per day: 0.5 Years cigarettes smoked: 41 [ Other cigarette details: Pt reports smoking at age 3] Alcohol intake: current Alcohol intake frequency: holidays/special occasions only Substance/Drug Use: former Additional social history: cocaine, speed, crystal meth in the past Lives independently: Yes Household members: none Marital status: Legally Current occupational status: disabled Do you think of yourself as: Straight/Heterosexual Current gender identity: Female Vitals/I&O/Wt Last Vital Signs Temp 97.9 F 03/23/24 20:14 Pulse 61 03/23/24 20:14 Resp 18 03/23/24 20:14 BP 113/72 03/23/24 20:14 Pulse Ox 100 03/23/24 20:14 O2 Del Method Room Air 03/23/24 20:14 03/23/24 03/23/24 03/24/24 14:59 22:59 06:59 Intake Total 0 / 0 Balance 0 / 0 Weight last 48 hrs Weight 75.75 kg Physical Exam 2 Const: GENERAL APPEARANCE: cooperative; not comfortable ORIENTATION/CONSCIOUSNESS: Yes awake, Yes oriented to person, Yes oriented to place and Yes oriented to time HENMT: HEAD & SCALP: normocephalic and atraumatic NOSE: Normal external nose present EXTERNAL EAR: Yes external ears normal MOUTH: Normal oral and palatal mucosa present THROAT: posterior oropharynx normal OTHER: NGT in place Eye: OTHER: PERRL, EOMI, conjunctiva normal b/l Neck/C-Spine: GENERAL: Yes normal visual inspection and Yes trachea midline THYROID: Thyroid normal CERVICAL SPINE: Yes cervical ROM normal OTHER: Unable to appreciate carotid bruit due to patient partial cooperation. Lymph: OTHER: No cervical or supraclavicular LAD. Resp: OTHER: CTAB, with no wheezes rales or rhonchi. Cardio: OTHER: RRR, no murmurs, rubs, gallops, or clicks. 2+ radial and DP pulses appreciated. GI: OTHER: BS+. Tenderness to palpation in the RLQ. No rebound tenderness, no guarding, no rigidity, no no hepatosplenomegaly. Colostomy in the left side of the abdomen. Extremity: GENERAL: No clubbing, No cyanosis and No edema Neuro: CRANIAL NERVES: Yes CN normal except as noted SPEECH: speech normal SENSORY EXAM: No sensory level loss detected MOTOR EXAM: 5/5 motor strength present throughout and Normal motor muscle tone present throughout Psych: APPEARANCE: Yes grossly normal ATTITUDE: Yes calm and Yes engaged ACTIVITY/MOTOR BEHAVIOR: Yes appropriate eye contact SPEECH: Yes normal speech MOOD & AFFECT: Yes sad and Yes tearful THOUGHT PROCESS: Normal thought process present THOUGHT CONTENT: Yes Normal thought content present Skin: GENERAL SKIN EXAM: no rashes or lesions noted Data 03/24/24 06:25 03/24/24 06:25 Micro: Microbiology 03/23/24 20:38 Blood Culture - Preliminary Blood SPECIMEN COLLECTED 03/23/24 20:34 Blood Culture - Preliminary Blood SPECIMEN COLLECTED A&P Assessment and plan (1) Small bowel obstruction: Plan Maura Hermosillo is a 54 yo w/ hx of Stage III rectal cancer s/p resection of the rectum w/ diverting colostomy in 2008 and adjuvant chemo, PE in 2019, Restless leg syndrome, EDGARD not on CPAP, chronic back pain who presented to the ED on 03/23/2024 w/ complaints of abdominal pain since the morning. #Recyrrebt SBO #Hx of colorectal cancer s/p surgery w/ diverting colostomy/aduvant chemo and complicated by recurrent SBO. -Gen Surg consulted from the ED. -Continue IVF recommended by Gen Surg. -Continue IV pain control. #IDDM2: medium dose SSI for qAC and qHS. #GERD: IV PPI #Peripheral neuropathy: thought to be from a hx of heavy alcohol use per Neurologist's 12/07/2019 note - Resume meds as appropriate #Psoriasis w/ Psoriatic arthritis - NPO at this time. Resume meds as appropriate #chronic pain - hx of b/l L5/S1 laminectomy w/ partial facetectomies. 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 - Patient states that she is seeing Dr. Kaur of orthopedics for another back surgery #RLS: NPO at this time. Resume meds as appropriate #Bipolar d/o, PTSD, Anxiety, Depression - NPO at this time. Resume meds as appropriate #Hx of polysubstance use: used cocaine? and #Tobacco use d/o: Has cut down to <5cigs a day. Declined Nicotine patch #Hepatitis C?-noted on the now retired oncologist, Dr. Tobin Abbasi's note. The patient states that she was told that she fought it off. Will order labs to check. #Hx of PE in 2019 - On Apixaban DVT ppx: Lovenox Attestations 2 Medical Necessity Statement*: The patient needs to be hospitalized for >2 midnights for her SBO. Coding Level of Care Code Acute Code for Chg Fwd Other Coding Information Focused coding review requested Diagnoses Small bowel obstruction K56.609
[2024-03-23] MEDS: HYDROmorphone 1 mg/mL INJ 1 mL IVP (23:33)
[2024-03-23] MEDS: sodium chloride 0.9% 1,000 ML 150 ML IV (23:33)
--- NOTE | 2024-03-23 23:54 | XRR_ITS ---
PROCEDURE INFORMATION: Exam: XR Chest Exam date and time: 03/24/2024 12:00 AM Age: 54 years old Clinical indication: Device placement; Ng tube; Patient HX: Check S/P ng placement; Additional info: Ng tube placement TECHNIQUE: Imaging protocol: Radiologic exam of the chest. Views: 1 view. COMPARISON: CR XR chest 1V portable [id number] 09/27/2023 6:13 PM FINDINGS: Tubes, catheters and devices: There is an enteric tube with tip in the region of the body of the stomach. Lungs: Unremarkable. No consolidation. Pleural spaces: Unremarkable. No pleural effusion. No pneumothorax. Heart/Mediastinum: Unremarkable. No cardiomegaly. Bones/joints: Unremarkable. Organs: Contrast material noted within the renal collecting system. There is right-sided hydronephrosis and hydroureter. XR/XR chest 1V portable [id number] IMPRESSION: Enteric tube in good position.
[2024-03-24] VITALS (14 sets, daily range): BP systolic 90–126; BP diastolic 56–68; PULSE 60–74; RESP 13–24; TEMP 36.4–36.8; O2SAT 91–96; BMI 25.4; BMI 26.4
[2024-03-24] MEDS: HYDROmorphone 1 mg/mL INJ 1 mL IVP ×5 (03:39→22:47)
[2024-03-24] MEDS: sodium chloride 0.9% 1,000 ML 150 ML IV ×2 (05:59→13:43)
[2024-03-24 06:40] LABS: Basophils % 0.7 %; Eosinophils # 0.1 10^3/uL (0.0-0.8); Eosinophils % 2.3 %; Hematocrit 34.3 % (36-47); Lymphocytes # 1.6 10^3/uL (0.8-4.8); Lymphocytes % 28.3 %; Mean Corpuscular HGB Conc 33.2 g/dL (30-55); Mean Corpuscular Hemoglobin 31.3 pg (27-33); Mean Corpuscular Volume 94.2 fl (85-98); Mean Platelet Volume 9.6 fL (7.4-10.4); Monocytes # 0.4 10^3/uL (0.2-0.9); Monocytes % 7.1 %; Neutrophils # 3.54 10^3/uL (1.8-7.7); Neutrophils % 61.4 %; Nucleated Red Blood Cells % 0 %; Platelet Count 210 10^3/cmm (157-399); Red Blood Count 3.64 10^6/uL (3.85-5.65); Red Cell Distribution Width 12.5 % (12.1-15.1); White Blood Count 5.76 10^3/uL (3.29-11.43)
[2024-03-24 06:50] LABS: INR 0.87 (0.8-1.2)
[2024-03-24 06:59] LABS: Alanine Aminotransferase 7 U/L (0-33); Albumin Level 3.4 g/dL (3.5-5.2); Alkaline Phosphatase 54 U/L (35-105); Anion Gap 14.7 (5-19); Aspartate Amino Transferase 12 U/L (0-32); Blood Urea Nitrogen 14 mg/dL (6-20); Calcium 8.4 mg/dL (8.5-10.5); Carbon Dioxide 22 mmol/L (22-29); Chloride 105 mmol/L (98-107); Creatinine Clr Calc Pharmacy 99.0137; Globulin 2.4 g/dL (1.3-4.6); Glomerular Filtration Rate 86.6 mL/min (90-130); Glucose 92 mg/dL (65-115); Magnesium 1.9 mg/dL (1.7-2.3); Osmolality Calculated 286 mOsm/kg (285-295); Potassium 3.7 mmol/L (3.5-5.1); Sodium 138 mmol/L (136-145); Total Bilirubin 0.3 mg/dL (0.15-1.2); Total Protein 5.8 g/dL (6.6-8.7)
[2024-03-24 07:20] LABS: Hepatitis A Antibody IgM Non-Reactive (Nonreactive); Hepatitis B Core IgM Non-Reactive (Nonreactive); Hepatitis B Surface Antigen Non-Reactive (Nonreactive)
[2024-03-24 07:58] LABS: Hepatitis C Virus Antibody Reactive (Nonreactive)
[2024-03-24] MEDS: pantoprazole 40 mg SDV IVP (08:53)
[2024-03-24] MEDS: phenol oral Spray 177 mL 3 SPRAY MUCOUS MEM (10:48)
--- NOTE | 2024-03-24 12:00 | PM.CONSULT ---
Providers/Reason For Consult Consulting Physician/Specialty*: Dr. Raffi Sheppard, DO/General Surgery Reason for Consult*: Small bowel obstruction Attending Physician: Alfonso Salazar MD Primary Care Provider: Brii Borden NP History of Present Illness History of Present Illness Maura Hermosillo is a 54 yo w/ hx of Stage III rectal cancer s/p resection of the rectum w/ diverting colostomy in 2008 and adjuvant chemo, PE in 2019, Restless leg syndrome, EDGARD not on CPAP, chronic back pain who presented to the ED on 03/23/2024 w/ complaints of abdominal pain. CT the abdomen pelvis showed dilated loops of small bowel and concern for developing small bowel obstruction. She has had many small bowel obstructions in the past all of which resolved with conservative treatment. She reports that she has not had a bowel movement or passed flatus since yesterday. However, her bag did break this morning and stool spilled out. The bag is empty upon my examination today. She reports diffuse abdominal pain but mostly right sided. Palpation makes pain worse. Nothing makes pain better. She denies any nausea or vomiting Review of Systems General: Reports: 10 or more systems reviewed and unremarkable except in HPI and below Medications/Allergies Home Medications Medication Instructions Recorded Confirmed Last Taken Type paroxetine HCl 40 mg tablet (Paxil) 40 mg PO DAILY #30 tabs 08/26/22 03/24/24 01/13/24 Rx albuterol sulfate 90 mcg/actuation 1 inh inhalation QID PRN shortness 01/12/23 03/24/24 01/13/24 Rx aerosol inhaler of breath or wheezing #8.5 grams fluticasone fur. 100 mcg-umeclid 1 inh inhalation DAILY #60 ea 06/15/23 03/24/24 01/13/24 Rx 62.5 mcg-vilant 25 mcg inhalat.powder (Trelegy Ellipta) methotrexate sodium 25 mg/mL 25 mg SUBCUT Q7D #10 mL 12/28/23 03/24/24 01/13/24 Rx injection solution risankizumab-rzaa 150 mg/mL 150 mg SUBCUT .Q12W #4 mL 01/04/24 03/24/24 Unknown Rx subcutaneous pen injector (Skyrizi) apixaban 5 mg tablet (Eliquis) 5 mg PO BID #60 tabs 02/10/24 03/24/24 Unknown Rx cetirizine 10 mg capsule (Zyrtec) 10 mg PO DAILY PRN allergy 02/10/24 03/24/24 Unknown Rx symptoms #30 caps buspirone 15 mg tablet 15 mg PO BID #60 tabs 03/13/24 03/24/24 Unknown Rx gabapentin 600 mg tablet 600 mg PO BEDTIME #30 tabs 03/13/24 03/24/24 Unknown Rx quetiapine 200 mg tablet (Seroquel) 200 mg PO DAILY #30 tabs 03/13/24 03/24/24 Unknown Rx ropinirole 4 mg tablet 4 mg PO BEDTIME #30 tabs 03/13/24 03/24/24 Unknown Rx Allergies Allergy/AdvReac Type Severity Reaction Status Date / Time coconut oil Allergy Severe anaphylaxis Verified 02/10/24 15:07 mushroom Allergy Severe trouble Verified 02/10/24 15:07 breathing duloxetine [From Cymbalta] Allergy Intermediate dizziness,v Verified 02/10/24 15:07 omiting atorvastatin AdvReac Severe Rhabdomyoly Verified 03/24/24 06:27 sis Current Medications Generic Name Dose Route Start Last Admin Trade Name Freq PRN Reason Stop Dose Admin Hydromorphone HCl 1 mg 03/24/24 02:46 03/24/24 09:27 Hydromorphone 1 Mg/Ml Inj 1 Ml IVP 1 mg Q4H PRN Administration SEVERE PAIN Sodium Chloride 1,000 mls @ 100 mls/hr 03/23/24 23:15 03/24/24 08:53 Sodium Chloride 0.9% IV 100 mls/hr .Q10H YAHIR Infusion Insulin Human Lispro 0 unit 03/24/24 08:00 03/24/24 09:27 Insulin Lispro 100 Unit/1 Ml SUBCUT Not Given [facility] Protocol Pantoprazole Sodium 40 mg 03/24/24 07:30 03/24/24 08:53 Pantoprazole 40 Mg Sdv IVP 40 mg Q24H YAHIR Administration Phenol 3 spray 03/24/24 06:55 03/24/24 10:48 Phenol Oral [place] 177 Ml MUCOUS MEM 3 spray Q2H PRN Administration SORE THROAT PFSH Acute PFSH: Medical History (Updated 03/24/24 @ 12:02 by Raffi Sheppard DO) Immunization counseling Plaque psoriasis Small bowel obstruction Nausea & vomiting Small bowel obstruction Obstructive sleep apnea B12 deficiency Cocaine use disorder, severe, in sustained remission Acute kidney injury Loss of hair DDD (degenerative disc disease), lumbar Lumbar spondylosis Hydronephrosis of right kidney Rectal cancer Cancer free for 14 years. Lumbar radiculitis Peripheral neuropathy Obstructive sleep apnea Restless leg syndrome Chronic post-traumatic stress disorder Pulmonary embolism CKD (chronic kidney disease) Osteoarthritis of knees, bilateral Immunosuppression Psoriasis Psoriatic arthritis Surgical History (Updated 03/24/24 @ 12:02 by Raffi Sheppard DO) Colostomy in place History of resection of rectum H/O: hysterectomy Due to fibroids. H/O tubal ligation Family History Mother Cancer Social History Smoking and tobacco/nicotine status: current every day tobacco/nicotine user cigarettes Packs smoked per day: 0.5 Years cigarettes smoked: 41 [ Other cigarette details: Pt reports smoking at age 3] Alcohol intake: current Alcohol intake frequency: holidays/special occasions only Substance/Drug Use: former Additional social history: cocaine, speed, crystal meth in the past Lives independently: Yes Household members: none Marital status: Legally Current occupational status: disabled Do you think of yourself as: Straight/Heterosexual Current gender identity: Female Vitals/I&O/Wt Last Vital Signs Temp 98.3 F 03/24/24 08:00 Pulse 74 03/24/24 08:00 Resp 18 03/24/24 09:27 BP 90/56 03/24/24 08:00 Pulse Ox 95 03/24/24 08:00 O2 Del Method Room Air 03/24/24 04:00 03/23/24 03/24/24 03/24/24 22:59 06:59 14:59 Intake Total 0 / 0 965 / 965 435 / 435 Output Total 400 / 400 Balance 0 / 0 565 / 565 435 / 435 Weight last 48 hrs Weight 173 lb 14.4 oz Weight 173 lb 3.2 oz Weight 167 lb Weight 167 lb Physical Exam Narrative: General : Patient is well developed , no acute distress, oriented x3 Head : Normal cephalic, a-traumatic. Ears : Pinnae and external canal are normal. Hearing is normal. Eyes : PERRLA, Sclera and injection are normal. No conjunctival discharge. Nose : Mucous membranes are without erythema. Throat : buccal mucosa is normal, gums are without significant recession or hypertrophy. Lungs : Equal chest rise bilaterally, no use of accessory muscles, trachea is midline. Cor : Rate and rhythm are normal. Abdomen : Soft, ND, right-sided tenderness, no g/r/m Left lower quadrant ostomy pink and patent without production at this time Extremities : No edema, no cyanosis or clubbing, dorsalis pedis pulses are present bilaterally, non-tender to palpation of calves. Upper extremities are normal bilaterally. Back : non-tender to palpation, no CVA tenderness. Neuro : CN II - XII intact, Upper and lower extremities have equal and full strength Data 03/24/24 06:25 03/24/24 06:25 Micro: Microbiology 03/23/24 20:38 Blood Culture - Preliminary Blood SPECIMEN COLLECTED 03/23/24 20:34 Blood Culture - Preliminary Blood SPECIMEN COLLECTED A&P Assessment and plan (1) Small bowel obstruction: (2) Rectal cancer: (3) History of resection of rectum: (4) Colostomy in place: Plan Seems like she likely has a partial obstruction given that her bag broke and she spilled stool that had to be cleaned up today. But the patient is telling me that she has not passed gas or had flatus since yesterday NG tube to low intermittent suction. May have ice chips IV fluids at 150 Ambulate while tube clamped for up to 30 minutes at a time Conservative management for now. If her obstruction does not resolve after a few days or so of conservative treatment, we will need to consider diagnostic laparoscopy versus exploratory laparotomy Medical management per primary Coding Level of Care Code 77197 Diagnoses Small bowel obstruction K56.609 Rectal cancer C20 History of resection of rectum Z90.[address] Z93.3
[2024-03-24 12:03] LABS: Glucose Point of Care 91 mg/dL (70-110)
[2024-03-24 13:57] LABS: Glucose Point of Care 99 mg/dL (70-110)
--- NOTE | 2024-03-24 14:51 | PC.NURSE ---
Patient had not urinated at this time. Patient assisted to the bed side commode and urinated 500mL. Post void residual obtained by bladder scan and 357mL noted to be still in the bladder immediately after urinating. Physician rbvo to place amato catheter. Inserted amato catheter and cloudy urine returned. urine sample sent to lab.
[2024-03-24 14:55] LABS: Bilirubin Urine Negative (Negative); Blood Urine 2+ (Negative); Glucose Urine UA Negative (Normal); Ketones Urine Negative (Negative); Leukocyte Esterase Urine 2+ (Negative); Nitrate Urine Positive (Negative); Protein Urine 1+ (Negative); Urine Appearance Cloudy (CLEAR); Urine Color Yellow (Yellow); Urobilinogen Urine 0.2 mg/dL (Negative); pH Urine 5.5 (5-7)
[2024-03-24 15:00] LABS: Bacteria Urine 2+ /hpf; Hyaline Casts Urine 0-4 /lpf; RBC Urine 21-50 /hpf (0-2); Squamous Epithelial Cell Urine 0-5 /hpf (0-5); WBC Urine >100 /hpf (0-5)
[2024-03-24 15:10] LABS: Specific Gravity, Urine 1.043 (1.005-1.030)
[2024-03-24 15:11] LABS: Add Urine Culture? Yes; UA Slide Review UA Slide Review Perf
[2024-03-24] MEDS: cefTRIAXone 1,000 mg SDV 1000 MG IVP (16:39)
--- NOTE | 2024-03-24 17:50 | P.PN_ITS ---
Subjective 2 Subjective: Patient reports abdominal pain, NG tube in place, no fevers, no chills, Vitals/I&O/Wt Last Vital Signs Temp 97.6 F 03/24/24 16:00 Pulse 61 03/24/24 16:00 Resp 17 03/24/24 16:00 BP 106/68 03/24/24 16:00 Pulse Ox 96 03/24/24 16:00 O2 Del Method Room Air 03/24/24 16:00 03/24/24 03/24/24 03/24/24 06:59 14:59 22:59 Intake Total 965 / 965 992.5 / 992.5 Output Total 400 / 400 551 / 551 500 / 1051 Balance 565 / 565 441.5 / 441.5 -500 / -58.5 Weight last 48 hrs Weight 78.88 kg Weight 78.562 kg Weight 75.75 kg Weight 75.75 kg Physical Exam 2 Const: COMMON NORMALS: no acute distress and patient oriented x3 Resp: COMMON NORMALS: normal respiratory effort, No retractions, No use of accessory muscles and clear to auscultation bilaterally AUSCULTATION: clear to auscultation bilaterally Cardio: COMMON NORMALS: regular rate, regular rhythm, S1 normal heart sound present and S2 normal heart sound present RATE: regular rate RHYTHM: r egular rhythm HEART SOUNDS: S1 normal heart sound present and S2 normal heart sound present GI: OTHER: Abdomen soft, slightly distended, scattered bowel sounds, colostomy bag present, Extremity: COMMON NORMALS: no pedal edema Neuro: COMMON NORMALS: patient oriented x3 Psych: COMMON NORMALS: mental status grossly normal Urinary Catheter Management: Quevedo: Cath Placed During This Visit: yes Reason for Continuing Indwelling Catheter: Acute Urinary Retention or Obstruction Urinary Catheter Date of Insertion: 03/24/24 Urinary Catheter Time of Insertion: 14:30 Data 03/24/24 06:25 03/24/24 06:25 Micro: Microbiology 03/23/24 20:38 Blood Culture - Preliminary Blood SPECIMEN COLLECTED 03/23/24 20:34 Blood Culture - Preliminary Blood SPECIMEN COLLECTED A&P Assessment and plan (1) Small bowel obstruction: (2) UTI (urinary tract infection): Plan Maura Hermosillo is a 54 yo w/ hx of Stage III rectal cancer s/p resection of the rectum w/ diverting colostomy in 2009 and adjuvant chemo, PE in 2019, Restless leg syndrome, EDGARD not on CPAP, chronic back pain who presented to the ED on 03/23/2024 w/ complaints of abdominal pain since the morning. # Small bowel obstruction #Hx of colorectal cancer s/p surgery w/ diverting colostomy/aduvant chemo and complicated by recurrent SBO. -Continue IV fluids -Bowel rest -N.p.o. -NG tube in place -Continue pain control -General surgery consulted #IDDM2: medium dose SSI for qAC and qHS. #GERD: #Peripheral neuropathy: -History of alcoholism - Resume meds as appropriate #Psoriasis w/ Psoriatic arthritis - NPO at this time. #chronic pain - hx of b/l L5/S1 laminectomy w/ partial facetectomies. 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 - Patient states that she is seeing Dr. Kaur of orthopedics for another back surgery -Monitor #RLS: #Bipolar d/o, PTSD, Anxiety, Depression -As needed #Hx of polysubstance use: #Tobacco use d/o: #Hepatitis C?-Reordered hep C panel #Hx of PE in 2019 -Apixaban held, switch to therapeutic Lovenox # UTI, follow urine culture, continue IV Rocephin DVT ppx: Lovenox Full code Plan for today, keep n.p.o., bowel rest, NG tube in place, Dilaudid for pain control, she was found to have a UTI, started on Rocephin, general surgery consultation Attestations 2 Medical Necessity Statement*: Patient requires hospitalization for small bowel obstruction, UTI requiring inpatient admission Diagnoses Small bowel obstruction K56.609 UTI (urinary tract infection) N39.0
[2024-03-24] MEDS: enoxaparin 80 mg/0.8 mL Syringe SUBCUT (21:53)
[2024-03-24] MEDS: sodium chloride 0.9% 1,000 ML 125 ML IV (21:53)
[2024-03-25] VITALS (11 sets, daily range): BP systolic 95–116; BP diastolic 58–74; PULSE 57–91; RESP 16–19; TEMP 36.5–36.8; O2SAT 94–100
[2024-03-25] MEDS: ondansetron 2 mg/ML SDV 2 mL 4 MG IVP (03:49)
[2024-03-25] MEDS: HYDROmorphone 1 mg/mL INJ 1 mL IVP (04:54)
[2024-03-25] MEDS: sodium chloride 0.9% 1,000 ML 125 ML IV (04:54)
[2024-03-25 05:29] LABS: Basophils % 0.5 %; Eosinophils # 0.2 10^3/uL (0.0-0.8); Eosinophils % 2.8 %; Hematocrit 32.5 % (36-47); Lymphocytes # 1.8 10^3/uL (0.8-4.8); Lymphocytes % 30.5 %; Mean Corpuscular HGB Conc 33.5 g/dL (30-55); Mean Corpuscular Hemoglobin 31.4 pg (27-33); Mean Corpuscular Volume 93.7 fl (85-98); Mean Platelet Volume 9.5 fL (7.4-10.4); Monocytes # 0.3 10^3/uL (0.2-0.9); Neutrophils # 3.51 10^3/uL (1.8-7.7); Neutrophils % 60.9 %; Nucleated Red Blood Cells % 0 %; Platelet Count 189 10^3/cmm (157-399); Red Blood Count 3.47 10^6/uL (3.85-5.65); Red Cell Distribution Width 12.6 % (12.1-15.1); White Blood Count 5.77 10^3/uL (3.29-11.43)
[2024-03-25 05:53] LABS: Alanine Aminotransferase 6 U/L (0-33); Albumin Level 3.3 g/dL (3.5-5.2); Alkaline Phosphatase 52 U/L (35-105); Aspartate Amino Transferase 11 U/L (0-32); Blood Urea Nitrogen 6 mg/dL (6-20); Calcium 8.6 mg/dL (8.5-10.5); Carbon Dioxide 23 mmol/L (22-29); Chloride 109 mmol/L (98-107); Creatinine Clr Calc Pharmacy 138.7445; Globulin 2.5 g/dL (1.3-4.6); Glomerular Filtration Rate 127.6 mL/min (90-130); Glucose 92 mg/dL (65-115); Magnesium 1.8 mg/dL (1.7-2.3); Osmolality Calculated 287 mOsm/kg (285-295); Phosphorus 3.9 mg/dL (2.5-4.5); Sodium 140 mmol/L (136-145); Total Bilirubin 0.4 mg/dL (0.15-1.2); Total Protein 5.8 g/dL (6.6-8.7)
--- NOTE | 2024-03-25 09:01 | P.PN_ITS ---
Subjective 2 Subjective: Patient seen and examined. She was resting comfortably when I walked into the room. Her colostomy bag is not filling up with stool and air. She denies any significant pain Vitals/I&O/Wt Last Vital Signs Temp 97.9 F 03/25/24 07:41 Pulse 57 L 03/25/24 07:41 Resp 16 03/25/24 07:41 BP 112/58 03/25/24 07:41 Pulse Ox 95 03/25/24 07:41 O2 Del Method Room Air 03/25/24 07:41 03/24/24 03/25/24 03/25/24 22:59 06:59 14:59 Intake Total 1000.0 / 1992.5 877.083 / 2869.583 Output Total 500 / 1051 1550 / 2601 Balance 500.0 / 941.5 -672.917 / 268.583 Weight last 48 hrs Weight 174 lb 4 oz Weight 173 lb 14.4 oz Weight 173 lb 3.2 oz Weight 167 lb Weight 167 lb Physical Exam 2 Narrative: General: No acute distress, awake alert and oriented x 3. However when I removed her NG tube she started crying significantly. Tube came out very smoothly Abdomen: Soft, nontender, nondistended Urinary Catheter Management: Quevedo: Cath Placed During This Visit: yes Reason for Continuing Indwelling Catheter: Acute Urinary Retention or Obstruction Urinary Catheter Date of Insertion: 03/24/24 Urinary Catheter Time of Insertion: 14:30 Data 03/25/24 05:18 03/25/24 05:18 Micro: Microbiology 03/23/24 20:38 Blood Culture - Preliminary Blood NEGATIVE TO DATE 03/23/24 20:34 Blood Culture - Preliminary Blood NEGATIVE TO DATE A&P Assessment and plan (1) Small bowel obstruction: Plan Small bowel obstruction is resolving I pulled out her nasogastric tube and started her on clear liquids. Advance as tolerated to full liquids Her NG tube came out very very smoothly but she was profusely crying after I did it. This seems unrelated to the NG tube or her pain and more related to anxiety Will likely advance to soft diet tomorrow and clear for discharge Attestations 2 Medical Necessity Statement*: Per primary Coding Level of Care Code 21874 Diagnoses Small bowel obstruction K56.609
[2024-03-25] MEDS: enoxaparin 80 mg/0.8 mL Syringe SUBCUT (09:14)
[2024-03-25] MEDS: pantoprazole 40 mg SDV IVP (09:14)
[2024-03-25] MEDS: HYDROcodone-acetaminophen 7.5-325 mg Tablet 1 TAB PO ×3 (09:14→19:54)
--- NOTE | 2024-03-25 16:29 | P.PN_ITS ---
Subjective 2 Subjective: Patient was seen this morning she is alert oriented x 3, following all commands, denies any fevers, no chills, no nausea, no vomiting we discussed her UTI, follow-up urine cultures likely remove Quevedo catheter, urine cultures growing Staph aureus Quevedo catheter in place, likely be the source, remove Quevedo catheter started on Zyvox, she also reports that she had a small bowel overnight passing gas, NG tube has been removed by general surgery she is on clear liquid diet no nausea, no vomiting still having pain Vitals/I&O/Wt Last Vital Signs Temp 98.0 F 03/25/24 11:22 Pulse 60 03/25/24 11:22 Resp 17 03/25/24 11:22 BP 110/64 03/25/24 11:22 Pulse Ox 100 03/25/24 11:22 O2 Del Method Room Air 03/25/24 11:22 03/25/24 03/25/24 03/25/24 06:59 14:59 22:59 Intake Total 877.083 / 2869.583 1000 / 1000 Output Total 1550 / 2601 1600 / 1600 Balance -672.917 / 268.583 -600 / -600 Weight last 48 hrs Weight 79.038 kg Weight 78.88 kg Weight 78.562 kg Weight 75.75 kg Weight 75.75 kg Physical Exam 2 Const: COMMON NORMALS: no acute distress and patient oriented x3 Resp: COMMON NORMALS: normal respiratory effort, No retractions, No use of accessory muscles and clear to auscultation bilaterally AUSCULTATION: clear to auscultation bilaterally Cardio: COMMON NORMALS: regular rate, regular rhythm, S1 normal heart sound present and S2 normal heart sound present RATE: regular rate RHYTHM: r egular rhythm HEART SOUNDS: S1 normal heart sound present and S2 normal heart sound present GI: COMMON NORMALS: Normal to inspection, nondistended, normoactive bowel sounds present OTHER: Colostomy paste, air in bag, generalized abdominal pain no point tenderness, generalized abdominal tenderness Extremity: COMMON NORMALS: no pedal edema Neuro: COMMON NORMALS: patient oriented x3 Psych: COMMON NORMALS: mental status grossly normal Urinary Catheter Management: Quevedo: Cath Placed During This Visit: yes Reason for Continuing Indwelling Catheter: Acute Urinary Retention or Obstruction Urinary Catheter Date of Insertion: 03/24/24 Urinary Catheter Time of Insertion: 14:30 Data 03/25/24 05:18 03/25/24 05:18 Micro: Microbiology 03/24/24 14:45 Urine Culture - Preliminary Urine,Clean Catch Staphylococcus aureus 03/23/24 20:38 Blood Culture - Preliminary Blood NEGATIVE TO DATE 03/23/24 20:34 Blood Culture - Preliminary Blood NEGATIVE TO DATE A&P Assessment and plan (1) Small bowel obstruction: (2) UTI (urinary tract infection): Plan Maura Hermosillo is a 54 yo w/ hx of Stage III rectal cancer s/p resection of the rectum w/ diverting colostomy in 2008 and adjuvant chemo, PE in 2019, Restless leg syndrome, EDGARD not on CPAP, chronic back pain who presented to the ED on 03/23/2024 w/ complaints of abdominal pain since the morning. # Staph aureus UTI -Likely UTI associated with Quevedo catheter -Remove Quevedo catheter -Culture tip -Start Zyvox -Follow-up blood cultures # Small bowel obstruction #Hx of colorectal cancer s/p surgery w/ diverting colostomy/aduvant chemo and complicated by recurrent SBO. -De-escalate off IV fluids -Advance diet to GI soft diet -Monitor for bowel movement -G-tube out -Continue pain control -General surgery consulted #IDDM2: medium dose SSI for qAC and qHS. #GERD: #Peripheral neuropathy: -History of alcoholism - Resume meds as appropriate #Psoriasis w/ Psoriatic arthritis - NPO at this time. #chronic pain - hx of b/l L5/S1 laminectomy w/ partial facetectomies. 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 - Patient states that she is seeing Dr. Kaur of orthopedics for another back surgery -Monitor #RLS: #Bipolar d/o, PTSD, Anxiety, Depression -As needed #Hx of polysubstance use: #Tobacco use d/o: #Hepatitis C?-Reordered hep C panel #Hx of PE in 2019 -Apixaban held, switch to therapeutic Lovenox # UTI, follow urine culture, continue IV Rocephin DVT ppx: Lovenox Full code Plan for today, advance diet as tolerated, start IV antibiotics for Staph aureus UTI, remove Quevedo catheter Attestations 2 Medical Necessity Statement*: Patient requires hospitalization for Staph aureus UTI Diagnoses Small bowel obstruction K56.609 UTI (urinary tract infection) N39.0
--- NOTE | 2024-03-25 16:58 | PC.NURSE ---
Patient has complained most of the morning that staff has not been in there for four hours and when call light is on it takes way to long for staff to come. This nurse, charge nurse and both CNAs have been in there more than hourly. Patient wanted to talk to the doctor. This nurse notified Dr. Sheppard which notified Dr. Salazar. This nurse was finally able to sit on the side of the bed and speak to the patient to find out what was really bothering her. Patient stated she just wanted to go home and felt like the hospital was doing nothing since the NG tube was pulled this morning. This nurse state the antibiotics were being changed and the physician would like to monitor for the night at least. Both physicians were ready to DC if patient was admit about leaving. Patients diet was change to clear liquid then to mechanical soft. This nurse made the patient chicken broth, gave Jello, sprit, and lemon icy. Patient was satisfied.
[2024-03-25] MEDS: linezolid premix 600 MG/300 ML PREMIX 300 MG IV (17:36)
[2024-03-25] MEDS: quetiapine 100 mg Tablet 200 MG PO (17:37)
[2024-03-25 18:25] LABS: HEP C RNA Viral Load Quant <1.18 NOT DETECTED Log IU/mL (NOT DETECTED); HEP C RNA Viral Load Quant <15 NOT DETECTED IU/mL (NOT DETECTED)
[2024-03-25] MEDS: BuSPIRONE 10 mg Tablet 15 MG PO (18:41)
[2024-03-25] MEDS: gabapentin 300 mg Capsule 600 MG PO (19:53)
[2024-03-25] MEDS: sennosides 8.6 mg Tablet 17.2 MG PO (19:53)
[2024-03-25] MEDS: ropinirole 2 mg Tablet 4 MG PO (19:54)
[2024-03-25] MEDS: apixaban 5 mg Tablet PO (19:54)
[2024-03-26] MEDS: linezolid premix 600 MG/300 ML PREMIX 300 MG IV (03:50)
[2024-03-26 04:00] VITALS: BP 95/56; PULSE 59; RESP 16; TEMP 36.5; O2SAT 97
[2024-03-26 05:00] LABS: Basophils % 0.9 %; Eosinophils # 0.2 10^3/uL (0.0-0.8); Eosinophils % 5.1 %; Hematocrit 33.1 % (36-47); Lymphocytes # 1.7 10^3/uL (0.8-4.8); Mean Corpuscular HGB Conc 31.7 g/dL (30-55); Mean Corpuscular Hemoglobin 31.9 pg (27-33); Mean Corpuscular Volume 100.6 fl (85-98); Mean Platelet Volume 9.7 fL (7.4-10.4); Monocytes # 0.3 10^3/uL (0.2-0.9); Monocytes % 8.7 %; Neutrophils # 1.16 10^3/uL (1.8-7.7); Nucleated Red Blood Cells % 0 %; Platelet Count 186 10^3/cmm (157-399); Red Blood Count 3.29 10^6/uL (3.85-5.65); Red Cell Distribution Width 12.5 % (12.1-15.1); White Blood Count 3.32 10^3/uL (3.29-11.43)
[2024-03-26 05:25] LABS: Alanine Aminotransferase 7 U/L (0-33); Albumin Level 3.1 g/dL (3.5-5.2); Alkaline Phosphatase 48 U/L (35-105); Anion Gap 13.9 (5-19); Aspartate Amino Transferase 12 U/L (0-32); Blood Urea Nitrogen 6 mg/dL (6-20); Calcium 8.7 mg/dL (8.5-10.5); Carbon Dioxide 24 mmol/L (22-29); Chloride 108 mmol/L (98-107); Creatinine Clr Calc Pharmacy 115.6356; Globulin 2.5 g/dL (1.3-4.6); Glomerular Filtration Rate 103.4 mL/min (90-130); Glucose 115 mg/dL (65-115); Magnesium 1.8 mg/dL (1.7-2.3); Osmolality Calculated 293 mOsm/kg (285-295); Phosphorus 4.4 mg/dL (2.5-4.5); Potassium 3.9 mmol/L (3.5-5.1); Sodium 142 mmol/L (136-145); Total Bilirubin 0.3 mg/dL (0.15-1.2); Total Protein 5.6 g/dL (6.6-8.7)
[2024-03-26 07:40] VITALS: BP 100/57; PULSE 67; RESP 15; TEMP 36.7; O2SAT 94
[2024-03-26] MEDS: HYDROcodone-acetaminophen 7.5-325 mg Tablet 1 TAB PO (08:53)
[2024-03-26] MEDS: pantoprazole 40 mg SDV IVP (08:54)
[2024-03-26] MEDS: BuSPIRONE 10 mg Tablet 15 MG PO (08:54)
[2024-03-26 08:55] VITALS: BP 100/57; PULSE 67; RESP 15; TEMP 36.7
[2024-03-26] MEDS: apixaban 5 mg Tablet PO (08:55)
--- NOTE | 2024-03-26 10:30 | P.DS_ITS ---
Discharge Providers Date of Admission: 03/23/24 23:38 Date of Discharge: March 26, 2024 Attending Provider at Admission: Alyssa Bains MD Attending Provider at Discharge: Alfonso Salazar MD Primary Care Provider: Brii Borden NP Diagnoses at Discharge Discharge Diagnosis (1) Small bowel obstruction: Status: Acute (2) UTI (urinary tract infection): Status: Acute Reason for Visit Reason for Visit: ABD Pain Hospital Course Hospital Course This is a 54-year female with a history of stage III rectal cancer status post resection, history of diverting colostomy, history of PE, restless leg syndrome, obstructive sleep apnea, history of small bowel obstruction who presents [facility] for complaints of abdominal pain Patient presented to [facility] for small bowel obstruction, general surgery was consulted NG tube placed, IV fluids, bowel rest, IV pain control, conservatively manage. Patient overall clinically improved, NG tube removed, pain resolving, having bowel movements present in colostomy, cast present in colostomy, no significant nausea, or vomiting, no significant abdominal pain. Discharge instructions to drink plenty of electrolyte balanced fluids, come back to the emergency room if she were to have recurrent abdominal pain Patient's hospitalization was complicated by Staph aureus UTI, likely catheter associated UTI, Quevedo catheter removed, will be discharged on Zyvox for 10 days Physical Exam Const: COMMON NORMALS: no acute distress and patient oriented x3 Neck/C-Spine: COMMON NORMALS: no JVD Resp: COMMON NORMALS: normal respiratory effort, No retractions, No use of accessory muscles and clear to auscultation bilaterally AUSCULTATION: clear to auscultation bilaterally Cardio: COMMON NORMALS: no JVD, regular rate, regular rhythm, S1 normal heart sound present and S2 normal heart sound present RATE: regular rate RHYTHM: regular rhythm HEART SOUNDS: S1 normal heart sound present and S2 normal heart sound present GI: COMMON NORMALS: Normal to inspection, nondistended, normoactive bowel sounds present and non-tender OTHER: Colostomy in place with pooping bag Extremity: COMMON NORMALS: no pedal edema Neuro: COMMON NORMALS: patient oriented x3 Psych: COMMON NORMALS: mental status grossly normal Urinary Catheter Management: Quevedo: Cath Placed During This Visit: yes, but has since been removed by the nurse Reason for Continuing Indwelling Catheter: Acute Urinary Retention or Obstruction Urinary Catheter Date of Insertion: 03/24/24 Urinary Catheter Time of Insertion: 14:30 Date Urinary Catheter Removed: 03/25/24 Time Urinary Catheter Discontinued: 15:30 Discharge Data Studies Completed and Pending Completed Studies During Hospitalization Category Date Time Status CT abdomen pelvis w con* [id number] Stat Cat Scan 03/23/24 21:28 Completed XR abdomen 1V* [id number] Stat Exams 03/23/24 20:20 Completed XR chest 1V portable [id number] Routine Exams 03/23/24 23:54 Completed Pending at discharge Category Date Time Status Blood Culture Stat Lab 03/23/24 20:38 Results Complete Blood Count w/Auto AM LABS Lab 03/27/24 04:00 Ordered Comprehensive Metabolic Panel AM LABS Lab 03/27/24 04:00 Ordered Magnesium AM LABS Lab 03/27/24 04:00 Ordered Phosphorus AM LABS Lab 03/27/24 04:00 Ordered Urine Culture Stat Lab 03/24/24 14:45 Results Radiology Impressions Abdomen X-Ray 03/23/24 20:20 IMPRESSION: No acute abnormality. Abdomen/Pelvis CT 03/23/24 21:28 IMPRESSION: 1. Multiple dilated loops of small bowel without definitive transition point. These findings are concerning for a developing partial small bowel obstruction. Close attention on follow-up imaging recommended. 2. [id number] right-sided hydronephrosis and hydroureter. This finding is chronic and may be related to right distal ureteral fibrosis. 3. Mild diffuse urinary bladder wall thickening. Clinical correlation for cystitis recommended. Chest X-Ray 03/23/24 23:54 IMPRESSION: Enteric tube in good position. Laboratory Results WBC 3.32 10^3/uL (3.29-11.43) 03/26/24 04:29 RBC 3.29 10^6/uL (3.85-5.65) L 03/26/24 04:29 Hgb 10.50 g/dL (11.27-16.99) L 03/26/24 04:29 Hct 33.1 % (36-47) L 03/26/24 04:29 MCV 100.6 fl (85-98) H D 03/26/24 04:29 MCH 31.9 pg (27-33) 03/26/24 04:29 MCHC 31.7 g/dL (30-55) D 03/26/24 04:29 RDW 12.5 % (12.1-15.1) 03/26/24 04:29 Plt Count 186 10^3/cmm (157-399) 03/26/24 04: MPV 9.7 fL (7.4-10.4) 03/26/24 04:29 Neut % (Auto) 35.0 % 03/26/24 04:29 Lymph % (Auto) 50.0 % 03/26/24 04:29 Mcclain % (Auto) 8.7 % 03/26/24 04:29 Eos % (Auto) 5.1 % 03/26/24 04:29 Baso % (Auto) 0.9 % 03/26/24 04: Neut # (Auto) 1.16 10^3/uL (1.8-7.7) L 03/26/24 04: Lymph # (Auto) 1.7 10^3/uL (0.8-4.8) 03/26/24 04: Mcclain # (Auto) 0.3 10^3/uL (0.2-0.9) 03/26/24 04:29 Eos # (Auto) 0.2 10^3/uL (0.0-0.8) 03/26/24 04: Baso # (Auto) 0.0 10^3/uL (0.0-0.1) 03/26/24 04: Nucleated RBC % (auto) 0 % 03/26/24 04: Nucleated RBCs # 0.0 /100WBC 03/26/24 04: PT 12.50 SECONDS (12.1-14.9) 03/24/24 06: INR 0.87 (0.8-1.2) 03/24/24 06: APTT 28.0 SECONDS (23.9-36.7) 03/24/24 06: Sodium 142 mmol/L (136-145) 03/26/24 04: Potassium 3.9 mmol/L (3.5-5.1) 03/26/24 04: Chloride 108 mmol/L (98-107) H 03/26/24 04: Carbon Dioxide 24 mmol/L (22-29) 03/26/24 04:29 Anion Gap 13.9 (5-19) 03/26/24 04:29 BUN 6 mg/dL (6-20) 03/26/24 04:29 Creatinine 0.6 mg/dL (0.5-0.9) 03/26/24 04:29 GFR Calculation 103.4 mL/min (90-130) 03/26/24 04:29 Glucose 115 mg/dL (65-115) 03/26/24 04:29 POC Glucose 99 mg/dL (70-110) 03/24/24 13:49 Calculated Osmolality 293 mOsm/kg (285-295) 03/26/24 04:29 Lactic Acid 1.7 mmol/L (0.5-2.2) 03/23/24 20:28 Calcium 8.7 mg/dL (8.5-10.5) 03/26/24 04:29 Phosphorus 4.4 mg/dL (2.5-4.5) 03/26/24 04:29 Magnesium 1.8 mg/dL (1.7-2.3) 03/26/24 04:29 Total Bilirubin 0.3 mg/dL (0.15-1.2) 03/26/24 04:29 AST 12 U/L (0-32) 03/26/24 04:29 ALT 7 U/L (0-33) 03/26/24 04:29 Alkaline Phosphatase 48 U/L (35-105) 03/26/24 04:29 C-Reactive Protein 9.4 mg/L (0.0-4.9) H 03/23/24 20:28 Total Protein 5.6 g/dL (6.6-8.7) L 03/26/24 04:29 Albumin 3.1 g/dL (3.5-5.2) L 03/26/24 04:29 Globulin 2.5 g/dL (1.3-4.6) 03/26/24 04:29 Lipase 50 U/L (13-60) 03/23/24 20:28 Urine Color Yellow (Yellow) 03/24/24 14:45 Urine Appearance Cloudy (CLEAR) A 03/24/24 14:45 Urine pH 5.5 (5-7) 03/24/24 14:45 Ur Specific Gardners 1.043 (1.005-1.030) H 03/24/24 14:45 Urine Protein 1+ (Negative) A 03/24/24 14:45 Urine Glucose (UA) Negative (Normal) 03/24/24 14:45 Urine Ketones Negative (Negative) 03/24/24 14:45 Urine Blood 2+ (Negative) A 03/24/24 14:45 Urine Nitrate Positive (Negative) A 03/24/24 14:45 Urine Bilirubin Negative (Negative) 03/24/24 14:45 Urine Urobilinogen 0.2 mg/dL (Negative) 03/24/24 14:45 Ur Leukocyte Esterase 2+ (Negative) A 03/24/24 14:45 Urine RBC 21-50 /hpf (0-2) H 03/24/24 14:45 Urine WBC >100 /hpf (0-5) H 03/24/24 14:45 Ur Squamous Epith Cells 0-5 /hpf (0-5) 03/24/24 14:45 Amorphous Sediment Not Reportable 03/24/24 14:45 Urine Bacteria 2+ /hpf (NONE) H 03/24/24 14:45 Hyaline Casts 0-4 /lpf H 03/24/24 14:45 Hepatitis A IgM Ab Non-reactive (Nonreactive) 03/24/24 06:25 Hep Bs Antigen Non-reactive (Nonreactive) 03/24/24 06:25 Hep B Core IgM Ab Non-reactive (Nonreactive) 03/24/24 06:25 Hepatitis C Antibody Reactive (Nonreactive) H 03/24/24 06:25 HCV RNA Qnt PCR Amp&Det Cancelled 03/24/24 07:58 HCV RNA (PCR) IUs/ml Cancelled 03/24/24 07:58 HCV RNA (PCR) IU log10 Cancelled 03/24/24 07:58 Vitals Last Vital Signs Temp 98.0 F 03/26/24 07:40 Pulse 67 03/26/24 07:40 Resp 15 03/26/24 07:40 BP 100/57 03/26/24 07:40 Pulse Ox 94 03/26/24 07:40 O2 Del Method Room Air 03/26/24 07:40 Discharge Plan Discharge Patient Disposition: Home Condition: Stable Prescriptions: New linezolid [Zyvox] 600 mg tablet 600 mg PO BID 7 Days Qty: 14 0RF Continued albuterol sulfate 90 mcg/actuation HFA aerosol inhaler 1 inh inhalation QID PRN (Reason: shortness of breath or wheezing) Qty: 8.5 5RF Trelegy Ellipta 100-62.5-25 mcg blister with device 1 inh inhalation DAILY Qty: 60 3RF Eliquis 5 mg tablet 5 mg PO BID Qty: 60 2RF Zyrtec 10 mg capsule 10 mg PO DAILY PRN (Reason: allergy symptoms) Qty: 30 0RF buspirone 15 mg tablet 15 mg PO BID Qty: 60 0RF ropinirole 4 mg tablet 4 mg PO BEDTIME Qty: 30 0RF Rx Instructions: take two hours before bed quetiapine [Seroquel] 200 mg tablet 200 mg PO DAILY Qty: 30 0RF gabapentin 600 mg tablet 600 mg PO BEDTIME Qty: 30 0RF Held paroxetine HCl [Paxil] 40 mg tablet 40 mg PO DAILY Qty: 30 4RF Hold Instructions: Resume on 04/03/24. methotrexate sodium 25 mg/mL solution 25 mg SUBCUT Q7D Qty: 10 1RF Hold Instructions: Resume on 04/03/24. Patient Comments: pt states she is not currently taking this medication Rx Instructions: on fridays Skyrizi 150 mg/mL pen injector 150 mg SUBCUT .Q12W Qty: 4 5RF Hold Instructions: Resume on 04/03/24. Rx Instructions: subcutaneous injection at Week 0, Week 4, and every 12 weeks thereafter Discharge Orders: Discharge Order (Routine); Ordered 03/26/24 Ordered By: Alfonso Salazar Referrals: Brii Borden, LATEX THREAD MACHINE OPERATOR [Primary Care Provider] - 1-3 days (We have notified your physician's clinic of the need for a follow-up appointment to be scheduled. If you have not heard from them within the next 2 business days, please call them directly. ) Discharge Diet: Advance as tolerated Discharge Activity: Resume usual activity Patient Instructions: Bowel Obstruction, Linezolid (By mouth), Urinary Tract Infection in Women (DC), Opioid Safety Activity Restrictions/Additional Instructions: - If you have recurrent abdominal pain please go to the emergency room -Please hold methotrexate and paroxetine until you finish Zyvox due to concerns for interaction -Please follow-up with primary care provider 1 week -If you have recurrent abdominal pain please go to the emergency room Discharge Attestations Time Spent in Discharge Care*: greater than 30 min Status at Discharge: Cognitive status at discharge: cognitively intact , Behavioral status at discharge: can be uncooperative , Quality Metrics Clinical Quality Measures [ No reported AMI, CVA or VTE this stay] Coding Level of Care Code 76472 Total time (in minutes) for Discharge: 45 Diagnoses Small bowel obstruction K56.609 UTI (urinary tract infection) N39.0
--- NOTE | 2024-03-26 10:43 | PC.NURSE ---
Notified Dr. Salazar patient refused seroquel 200 mg this am. Patient stated the medications was only a bedtime medications. No new orders from Dr. Salazar.
[2024-03-26 11:23] VITALS: BP 106/67; PULSE 62; RESP 17; TEMP 36.4; O2SAT 100
[2024-03-26 12:00] VITALS: BP 106/67; PULSE 62; RESP 17; TEMP 36.4
[2024-03-26] MEDS: linezolid 600 mg Tablet PO (12:12)
--- NOTE | 2024-03-26 12:31 | PC.NURSE ---
Discussed discharge with patient. Discussed new medications and explained twice to hold skyrizi, Methotrexate and paroxetine until zyvox is complete. If abdominal pain worsens please come to the emergency room. Patient verbalized understanding.
[2024-03-26 12:38] VITALS: BP 106/67; PULSE 62; RESP 17; TEMP 36.4; O2SAT 100
== END 2024-03-26 12:30 | disposition home or self-care (01) | DRG 389 ==
LOC: ER 23:06 → MEDSURG 23:39
PROVIDERS: Admitting Provider Internal Medicine; Emergency Provider Emergency Medicine; Visit Provider Family Medicine
DX: K56.600 Partial intestinal obstruction, unspecified as to cause (principal); N39.0 Urinary tract infection, site not specified; T83.518A Infection and inflammatory reaction due to other urinary catheter, initial encounter; B95.61 Methicillin susceptible Staphylococcus aureus infection as the cause of diseases classified elsewhere; Y73.1 Therapeutic (nonsurgical) and rehabilitative gastroenterology and urology devices associated with adverse incidents; G47.33 Obstructive sleep apnea (adult) (pediatric); G25.81 Restless legs syndrome; G89.29 Other chronic pain; M54.9 Dorsalgia, unspecified; E11.22 Type 2 diabetes mellitus with diabetic chronic kidney disease; N18.9 Chronic kidney disease, unspecified; Z79.4 Long term (current) use of insulin; K21.9 Gastro-esophageal reflux disease without esophagitis; G62.1 Alcoholic polyneuropathy; L40.50 Arthropathic psoriasis, unspecified; F31.9 Bipolar disorder, unspecified; F43.10 Post-traumatic stress disorder, unspecified; F41.9 Anxiety disorder, unspecified; F17.210 Nicotine dependence, cigarettes, uncomplicated; Z85.048 Personal history of other malignant neoplasm of rectum, rectosigmoid junction, and anus; Z86.711 Personal history of pulmonary embolism; Z79.01 Long term (current) use of anticoagulants; Z92.21 Personal history of antineoplastic chemotherapy; Z93.3 Colostomy status; Z90.49 Acquired absence of other specified parts of digestive tract
CPT/HCPCS: 36415; 36416; 51702; 71045; 74018; 74177; 80053; 80074; 81001; 82962; 83605; 83690; 83735; 84100; 85025; 85610; 85730; 86140; 87040; 87077; 87086; 87186; 87522; 96361; 96372; 96374; 96375; 99285; J0696; J1171; J1650; J1885; J2020; J2405; J2470; J7030

== ENCOUNTER → 2024-04-04 12:45 | Outpatient (BNVA) | payer MEDICARE, MEDICAID, SELFPAY | PROVIDERS: Visit Provider Family Medicine | DX: Z01.818 Encounter for other preprocedural examination (principal) | CPT/HCPCS: 81003 ==

== ENCOUNTER → 2024-05-25 13:25 | Outpatient (BNVA) | payer MEDICARE, MEDICAID, SELFPAY | PROVIDERS: Visit Provider Orthopaedic Surgery | DX: M48.062 Spinal stenosis, lumbar region with neurogenic claudication (principal) | CPT/HCPCS: 99213 ==

== ENCOUNTER 2024-07-06 13:08 | Emergency (ER) | payer MEDICARE, MEDICAID, SELFPAY ==
[2024-07-06 13:19] VITALS: BP 116/65; PULSE 80; RESP 20; TEMP 36.7; O2SAT 97; BMI 25.8
[2024-07-06 14:44] VITALS: BP 128/78; RESP 26; O2SAT 98
--- NOTE | 2024-07-06 14:54 | W.ED.NECK ---
HPI - Neck Pain/Injury General: Chief Complaint: Neck Pain/Injury Stated Complaint: neck to arm pain Time Seen by Provider: 07/06/24 14:41 Source: patient Mode of arrival: EMS Limitations: no limitations History of Present Illness: Patient is a 54-year-old female who presents to ED today with complaint of left-sided neck and posterior shoulder pain that started over the past 2 to 3 days. No known injury or trauma. Pain is worse with range of motion of the shoulder movement of her left neck. She does not describe any midline neck tenderness. No neck stiffness or fevers. No severe headache. She is not having any numbness, tingling, loss of sensation to the left arm. She has not noticed any weakness. MD complaint: neck pain and other (Left posterior shoulder pain) Onset (ago): day(s) Place: home Radiation: left lateral and left shoulder Severity: moderate Duration: constant Relieving factors: immobilization Exacerbating factors: movement of extremity and movement of neck Associated symptoms: Reports no associated symptoms; Denies headache(s) Treatments prior to arrival: none Related Data Home Medications ?Medication ?Instructions ?Recorded ?Confirmed cyanocobalamin (vitamin B-12) 5,000 mcg PO DAILY 04/03/24 05/25/24 5,000 mcg capsule folic acid 1 mg tablet 1 mg PO DAILY 04/03/24 05/25/24 Previous Rx's ?Medication ?Instructions ?Recorded paroxetine HCl 40 mg tablet (Paxil) 40 mg PO DAILY #30 tabs 08/26/22 Held on 03/26/24. Instructions: Resume on 04/03/24. albuterol sulfate 90 mcg/actuation 1 inh inhalation QID PRN shortness 01/12/23 aerosol inhaler of breath or wheezing #8.5 grams fluticasone fur. 100 mcg-umeclid 1 inh inhalation DAILY #60 ea 06/15/23 62.5 mcg-vilant 25 mcg inhalat.powder (Trelegy Ellipta) methotrexate sodium 25 mg/mL 25 mg SUBCUT Q7D #10 mL 12/28/23 injection solution Held on 03/26/24. Instructions: Resume on 04/03/24. risankizumab-rzaa 150 mg/mL 150 mg SUBCUT .Q12W #4 mL 01/04/24 subcutaneous pen injector (Selenaizi) Held on 03/26/24. Instructions: Resume on 04/03/24. apixaban 5 mg tablet (Eliquis) 5 mg PO BID #60 tabs 02/10/24 buspirone 15 mg tablet 15 mg PO BID #60 tabs 03/13/24 gabapentin 600 mg tablet 600 mg PO BEDTIME #30 tabs 03/13/24 quetiapine 200 mg tablet (Seroquel) 200 mg PO DAILY #30 tabs 03/13/24 ropinirole 4 mg tablet 4 mg PO BEDTIME #30 tabs 03/13/24 oxycodone 5 mg tablet 5 mg PO BID PRN pain 7 days #14 05/25/24 tabs cyclobenzaprine 10 mg tablet 10 mg PO TID #14 tabs 07/06/24 ibuprofen 800 mg tablet 800 mg PO Q8H PRN pain #20 tabs 07/06/24 methylprednisolone 4 mg tablets in See Rx Instructions PO .COMPLEX 07/06/24 a dose pack (Medrol ([place])) #21 ea Allergies Allergy/AdvReac Type Severity Reaction Status Date / Time coconut oil Allergy Severe anaphylaxis Verified 05/25/24 13:43 mushroom Allergy Severe trouble Verified 05/25/24 13:43 breathing duloxetine (From Cymbalta) Allergy Intermediate dizziness,v Verified 05/25/24 13:43 omiting atorvastatin AdvReac Severe Rhabdomyoly Verified 05/25/24 13:43 sis Review of Systems Const: Denies: fever(s), chills or body aches Card: Denies: chest pain or palpitations Resp: Denies: dyspnea : Denies: flank pain, dysuria or hematuria Musc: Reports: neck pain and joint pain (L shoulder); Denies: back pain, extremity pain, extremity swelling, joint swelling, joint redness, joint warmth, joint stiffness or muscle weakness Neuro: Denies: headache(s), numbness in extremities, weakness in extremities or sensory changes PFSH ED PFSH: Medical History Immunization counseling Plaque psoriasis Small bowel obstruction Nausea & vomiting Small bowel obstruction Obstructive sleep apnea B12 deficiency Cocaine use disorder, severe, in sustained remission Acute kidney injury Loss of hair DDD (degenerative disc disease), lumbar Lumbar spondylosis Hydronephrosis of right kidney Rectal cancer Cancer free for 14 years. Lumbar radiculitis Peripheral neuropathy Obstructive sleep apnea Restless leg syndrome Chronic post-traumatic stress disorder Pulmonary embolism CKD (chronic kidney disease) Osteoarthritis of knees, bilateral Immunosuppression Psoriasis Psoriatic arthritis Surgical History Colostomy in place History of resection of rectum H/O: hysterectomy Due to fibroids. H/O tubal ligation Family History Mother Cancer Social History Smoking and tobacco/nicotine status: current every day tobacco/nicotine user cigarettes Packs smoked per day: 0.5 Years cigarettes smoked: 41 [ Other cigarette details: Pt reports smoking at age 3] Alcohol intake: current Alcohol intake frequency: holidays/special occasions only Substance/Drug Use: former Additional social history: cocaine, speed, crystal meth in the past Lives independently: Yes Household members: none Marital status: Legally Current occupational status: disabled Do you think of yourself as: Straight/Heterosexual Current gender identity: Female Physical Exam Const: COMMON NORMALS: no acute distress, average body habitus, patient oriented x3, no limitations, healthy appearing, alert and well nourished HENMT: COMMON NORMALS: normocephalic and atraumatic HEAD & SCALP: normocephalic and atraumatic FACE & SINUS: normal facial exam and face symmetric Eye: COMMON NORMALS: Equal, round and reactive pupils present and EOMs intact bilaterally GENERAL EYE: appearance normal, both eyes and all related structures and normal light reflex PUPIL: Yes Equal, round and reactive pupils present DIRECT OPHTHALMOSCOPY: Yes normal light reflex Neck/C-Spine: COMMON NORMALS: full ROM, no lymphadenopathy and no meningeal signs GENERAL: Yes normal visual inspection, No anterior neck swelling and No submandibular swelling CERVICAL SPINE: No Cervical spine tenderness, No step off deformity, Yes Paracervical muscle tenderness left, No Paracervical spasm, Yes Trapezius muscle tenderness and No Lhermitte's sign positive Chest: COMMONS NORMALS: normal inspection of the chest and normal palpation of entire chest wall Resp: COMMON NORMALS: normal respiratory effort and clear to auscultation bilaterally AUSCULTATION: clear to auscultation bilaterally Cardio: COMMON NORMALS: regular rate and regular rhythm RATE: regular rate RHYTHM: regular rhythm Back/Pelvis: COMMON NORMALS: thoracic and lumbar spine normal to inspection, no thoracic nor lumbar tenderness and thoraco-lumbar ROM normal Extremity: COMMON NORMALS: capillary refill normal GENERAL: Yes normal exam except as noted LEFT UPPER EXTREMITY: Yes shoulder joint (TTP L trapezius muscle) Left shoulder joint: Yes inspection (normal gross inspection), Yes ROM (pain over L posterior shoulder with ROM) and Yes neurovascular exam (normal) Neuro: COMMON NORMALS: patient oriented x3, moves all extremities, no focal motor deficits and no sensory deficits noted SENSORIUM/ORIENTATION: Yes alert MENINGEAL SIGNS: Yes no meningeal signs Skin: COMMON NORMALS: no rashes or lesions noted GENERAL SKIN EXAM: no rashes or lesions noted Course Vital Signs: Vital signs: Vital Signs Temperature 98.0 F 07/06/24 13:19 Pulse Rate 80 07/06/24 13:19 Respiratory Rate 62 H 07/06/24 14:44 Blood Pressure 128/78 07/06/24 14:44 Pulse Oximetry 98 07/06/24 14:44 Oxygen Delivery Me thod Room Air 07/06/24 14:44 MDM - Neck Pain/Injury Medical Decision Making Patient is a 54-year-old female here for left-sided neck pain and pain to her left posterior shoulder. She has tenderness to her left trapezius musculature. At this time I do not have any concern for meningitis, cervical radiculopathy, dissection, cord compression, or other emergent etiology. She was given IM steroids, anti-inflammatories, muscle relaxers and will be placed on medications at home over the next week. Recommend she follow-up with primary care provider next week for re-evaluation if symptoms or not improving. Differential Diagnosis Likely strain of neck muscle Medical Records I reviewed the patient's medical records. No radiology studies performed this visit Discharge Plan Discharge Patient Disposition: Home Clinical Impression: Acute pain of left shoulder Condition: Stable Prescriptions: New ibuprofen 800 mg tablet 800 mg PO Q8H PRN (Reason: pain) Qty: 20 0RF cyclobenzaprine 10 mg tablet 10 mg PO TID Qty: 14 0RF methylprednisolone [Medrol ([place])] 4 mg tablets,dose pack See Rx Instructions .ROUTE .COMPLEX Qty: 21 0RF Rx Instructions: orally per package directions No Action albuterol sulfate 90 mcg/actuation HFA aerosol inhaler 1 inh inhalation QID PRN (Reason: shortness of breath or wheezing) Qty: 8.5 5RF Trelegy Ellipta 100-62.5-25 mcg blister with device 1 inh inhalation DAILY Qty: 60 3RF Eliquis 5 mg tablet 5 mg PO BID Qty: 60 2RF paroxetine HCl [Paxil] 40 mg tablet 40 mg PO DAILY Qty: 30 4RF methotrexate sodium 25 mg/mL solution 25 mg SUBCUT Q7D Qty: 10 1RF Patient Comments: pt states she is not currently taking this medication Rx Instructions: on fridays folic acid 1 mg tablet 1 mg PO DAILY cyanocobalamin (vitamin B-12) 5,000 mcg capsule 5,000 mcg PO DAILY Skyrizi 150 mg/mL pen injector 150 mg SUBCUT .Q12W Qty: 4 5RF Rx Instructions: subcutaneous injection at Week 0, Week 4, and every 12 weeks thereafter buspirone 15 mg tablet 15 mg PO BID Qty: 60 0RF ropinirole 4 mg tablet 4 mg PO BEDTIME Qty: 30 0RF Rx Instructions: take two hours before bed quetiapine [Seroquel] 200 mg tablet 200 mg PO DAILY Qty: 30 0RF gabapentin 600 mg tablet 600 mg PO BEDTIME Qty: 30 0RF oxycodone 5 mg tablet 5 mg PO BID PRN (Reason: pain) 7 Days Qty: 14 0RF Discharge Orders: Discharge ED (Routine); Ordered 07/06/24 Ordered By: Steffanie Zhang Referrals: Brii Borden NP [Primary Care Provider, Family Practice] Activity Restrictions/Additional Instructions: As we discussed, please follow-up with your primary care provider next week for reevaluation of symptoms. You may return to the emergency department at anytime for worsening or uncontrollable pain, severe headache, neck stiffness or fevers, generally feeling worse or unwell, or any other concerns you may have. Print Language: Amharic Coding Level of Care Code ED Assistant Speech Language Pathologist for Vicente Tobin
[2024-07-06] MEDS: dexamethasone 10 mg/mL INJ 8 MG IM (15:03)
[2024-07-06] MEDS: orphenadrine 30 mg/mL Inj 2 mL 60 MG IM (15:03)
[2024-07-06] MEDS: ketorolac 60 mg/2 mL INJ IM (15:03)
[2024-07-06 15:21] VITALS: BP 112/66; PULSE 61; O2SAT 97
== END 2024-07-06 15:22 | disposition home or self-care (01) ==
PROVIDERS: Emergency Provider Physician Assistant
DX: M25.512 Pain in left shoulder (principal); Z79.01 Long term (current) use of anticoagulants; F17.210 Nicotine dependence, cigarettes, uncomplicated; N18.9 Chronic kidney disease, unspecified
CPT/HCPCS: 96372; 99284; J1100; J1885; J2360

== ENCOUNTER 2024-08-01 16:19 | Emergency (ER) | payer MEDICARE, MEDICAID, SELFPAY ==
[2024-08-01 16:20] VITALS: RESP 18; TEMP 36.6; BMI 28.8
--- NOTE | 2024-08-01 16:22 | ECG_ITS ---
[facility] Test Date: 2024-08-02 Pat Name: Maura Hermosillo Department: Room: Gender: Female Table Operator: : 1970 Requested By: Thao Wiley Order Number: [id number] Tres MD: GREGG MORGAN Measurements Intervals [place] Rate: 66 P: 76 NM: 169 QRS: 70 QRSD: 86 T: 73 QT: 425 QTc: 448 Interpretive Statements SINUS RHYTHM POSSIBLE LEFT ATRIAL ENLARGEMENT [-0.1mV P-WAVE IN V1/V2] Compared to ECG 09/30/2022 23:20:05 No significant changes Electronically Signed On 08-02-2024 22:49:47 CDT by GREGG MORGAN [email or web address]
--- NOTE | 2024-08-01 16:28 | W.ED.PSYCHS ---
HPI - Psych General: Chief Complaint: Psychiatric Symptoms Stated Complaint: SI Time Seen by Provider: 08/01/24 16:20 History of Present Illness: 54-year-old female who presents emergency room by ambulance from home. Apparently she had sent a text to family that stated goodbye and that she loved her. She was then found unresponsive. She responded to Narcan and is now combative and agitated and screaming somebody kill me now . Related Data Home Medications ?Medication ?Instructions ?Recorded ?Confirmed cyanocobalamin (vitamin B-12) 5,000 mcg PO DAILY 04/03/24 08/01/24 5,000 mcg capsule folic acid 1 mg tablet 1 mg PO DAILY 04/03/24 08/01/24 cyclobenzaprine 10 mg tablet 10 mg PO TID PRN Muscle Spasm 08/01/24 08/01/24 Previous Rx's ?Medication ?Instructions ?Recorded albuterol sulfate 90 mcg/actuation 1 inh inhalation QID PRN shortness 01/12/23 aerosol inhaler of breath or wheezing #8.5 grams methotrexate sodium 25 mg/mL 25 mg SUBCUT Q7D #10 mL 12/28/23 injection solution Held on 03/26/24. Instructions: Resume on 04/03/24. risankizumab-rzaa 150 mg/mL 150 mg SUBCUT .Q12W #4 mL 01/04/24 subcutaneous pen injector (Skyrizi) Held on 03/26/24. Instructions: Resume on 04/03/24. apixaban 5 mg tablet (Eliquis) 5 mg PO BID #60 tabs 02/10/24 buspirone 15 mg tablet 15 mg PO BID #60 tabs 03/13/24 gabapentin 600 mg tablet 600 mg PO BEDTIME #30 tabs 03/13/24 quetiapine 200 mg tablet (Seroquel) 200 mg PO DAILY #30 tabs 03/13/24 ropinirole 4 mg tablet 4 mg PO BEDTIME #30 tabs 03/13/24 oxycodone 5 mg tablet 5 mg PO BID PRN pain 7 days #14 05/25/24 tabs ibuprofen 800 mg tablet 800 mg PO Q8H PRN pain #20 tabs 07/06/24 Allergies Allergy/AdvReac Type Severity Reaction Status Date / Time coconut oil Allergy Severe anaphylaxis Verified 05/25/24 13:43 mushroom Allergy Severe trouble Verified 05/25/24 13:43 breathing duloxetine (From Cymbalta) Allergy Intermediate dizziness,v Verified 05/25/24 13:43 omiting atorvastatin AdvReac Severe Rhabdomyoly Verified 05/25/24 13:43 sis Review of Systems General: Reports: ROS unobtainable due to medical condition and ROS unobtainable due to mental status PFSH ED PFSH: Medical History Immunization counseling Plaque psoriasis Small bowel obstruction Nausea & vomiting Small bowel obstruction Obstructive sleep apnea B12 deficiency Cocaine use disorder, severe, in sustained remission Acute kidney injury Loss of hair DDD (degenerative disc disease), lumbar Lumbar spondylosis Hydronephrosis of right kidney Rectal cancer Cancer free for 14 years. Lumbar radiculitis Peripheral neuropathy Obstructive sleep apnea Restless leg syndrome Chronic post-traumatic stress disorder Pulmonary embolism CKD (chronic kidney disease) Osteoarthritis of knees, bilateral Immunosuppression Psoriasis Psoriatic arthritis Surgical History Colostomy in place History of resection of rectum H/O: hysterectomy Due to fibroids. H/O tubal ligation Family History Mother Cancer Social History Smoking and tobacco/nicotine status: current every day tobacco/nicotine user cigarettes Packs smoked per day: 0.5 Years cigarettes smoked: 41 [ Other cigarette details: Pt reports smoking at age 3] Alcohol intake: current Alcohol intake frequency: holidays/special occasions only Substance/Drug Use: former Additional social history: cocaine, speed, crystal meth in the past Lives independently: Yes Household members: none Marital status: Legally Current occupational status: disabled Do you think of yourself as: Straight/Heterosexual Current gender identity: Female Physical Exam Narrative: EXAM NARRATIVE: General: Alert, no acute distress. Skin: Warm, dry. Head: Normocephalic, atraumatic. Neck: Supple, trachea midline. Eye: Extraocular movements are intact. Ears, nose, mouth and throat: mucosa moist. Cardiovascular: Regular, Normal peripheral perfusion. Respiratory: Lungs are clear to auscultation, respirations are non-labored, breath sounds are equal, Symmetrical chest wall expansion. Gastrointestinal: Soft, Nontender, Non distended Musculoskeletal: Normal ROM, no deformity. Neurological: Alert, No focal neurological deficit observed. Psychiatric: Patient alternates between extremely tearful to extremely agitated and yelling somebody kill me now at the top of her lungs Course Vital Signs: Vital signs: Vital Signs Temperature 97.9 F 08/01/24 16:20 Pulse Rate 76 08/01/24 16:33 Respiratory Rate 18 08/01/24 16:33 Blood Pressure 118/65 08/01/24 16:33 Pulse Oximetry 99 08/01/24 16:33 Oxygen Delivery Me thod Room Air 08/01/24 16:33 MDM - Psych Medical Decision Making Differential diagnosis: Patient with reported depression and suicidal ideation. concerns for infection, alcohol intoxication, cardiac issues or other medical problems prior to psychiatric admission. Workup: labwork, ekg ordered to evaluate the pathologies and to clear the patient medically prior to psychiatric admission I was called back to the room patient had received Ativan and Geodon and was still extremely combative striking at staff a danger to herself and to others. She was placed in hard restraints. Lab Review: Laboratory results were reviewed and interpreted by myself the emergency room physician. - Medically cleared. - EKG shows no ischemic changes. - Blood alcohol level is 198 -Tylenol and salicylate levels are negative. - No anemia. - BUN and creatinine are within normal limits. Reexamination: Patient is quite intoxicated. More awake her up she still seems somewhat agitated. Concerned that if she does wake up she will come agitated and may fall out of bed and hurt herself so leaving in restraints at this time. This is at 1850. Reexamination: Patient has become a bit more awake and so she was able to make it to the bathroom but was a bit unstable. Still quite somnolent. Restraints removed at this time. Consultation: I spoke with Dr. Olivarez who is on-call for psychiatry. With the patient having an ostomy and being so altered he is not comfortable taking her to the floor right now. So at this point we can let her sleep off the alcohol little bit longer and reevaluate in the morning. Lab Data 08/01/24 17:44 08/01/24 17:44 Laboratory Results WBC 4.85 10^3/uL (3.29-11.43) 08/01/24 17:44 RBC 3.91 10^6/uL (3.85-5.65) 08/01/24 17:44 Hgb 12.30 g/dL (11.27-16.99) 08/01/24 17:44 Hct 36.5 % (36-47) 08/01/24 17:44 MCV 93.4 fl (85-98) 08/01/24 17:44 MCH 31.5 pg (27-33) 08/01/24 17:44 MCHC 33.7 g/dL (30-55) 08/01/24 17:44 RDW 13.0 % (12.1-15.1) 08/01/24 17:44 Plt Count 265 10^3/cmm (157-399) 08/01/24 17:44 MPV 9.0 fL (7.4-10.4) 08/01/24 17:44 Neut % (Auto) 53.3 % 08/01/24 17:44 Lymph % (Auto) 39.4 % 08/01/24 17:44 [place] % (Auto) 4.9 % 08/01/24 17:44 Eos % (Auto) 1.4 % 08/01/24 17:44 Baso % (Auto) 0.6 % 08/01/24 17:44 Neut # (Auto) 2.58 10^3/uL (1.8-7.7) 08/01/24 17:44 Lymph # (Auto) 1.9 10^3/uL (0.8-4.8) 08/01/24 17:44 [place] # (Auto) 0.2 10^3/uL (0.2-0.9) 08/01/24 17:44 Eos # (Auto) 0.1 10^3/uL (0.0-0.8) 08/01/24 17:44 Baso # (Auto) 0.0 10^3/uL (0.0-0.1) 08/01/24 17:44 Nucleated RBC % (auto) 0 % 08/01/24 17:44 Nucleated RBCs # 0.0 /100WBC 08/01/24 17:44 Sodium 132 mmol/L (136-145) L 08/01/24 17:44 Potassium 3.9 mmol/L (3.5-5.1) 08/01/24 17:44 Chloride 98 mmol/L (98-107) 08/01/24 17:44 Carbon Dioxide 20 mmol/L (22-29) L 08/01/24 17:44 Anion Gap 17.9 (5-19) 08/01/24 17:44 BUN 13 mg/dL (6-20) 08/01/24 17:44 Creatinine 0.6 mg/dL (0.5-0.9) 08/01/24 17:44 GFR Calculation 103.4 mL/min (90-130) 08/01/24 17:44 Glucose 93 mg/dL (65-115) 08/01/24 17:44 Calculated Osmolality 274 mOsm/kg (285-295) L 08/01/24 17:44 Calcium 8.6 mg/dL (8.5-10.5) 08/01/24 17:44 Total Bilirubin 0.4 mg/dL (0.15-1.2) 08/01/24 17:44 AST 16 U/L (0-32) 08/01/24 17:44 ALT 17 U/L (0-33) 08/01/24 17:44 Alkaline Phosphatase 59 U/L (35-105) 08/01/24 17:44 Total Protein 6.6 g/dL (6.6-8.7) 08/01/24 17:44 Albumin 4.0 g/dL (3.5-5.2) 08/01/24 17:44 Globulin 2.6 g/dL (1.3-4.6) 08/01/24 17:44 TSH 1.58 uIU/mL (0.27-4.20) 08/01/24 17:44 Salicylates < 0.3 mg/dL (3-10) L 08/01/24 17:44 Acetaminophen < 5.0 ug/mL (10-30) L 08/01/24 17:44 Ethyl Alcohol 198 mg/dL (0-10) H 08/01/24 17:44 No radiology studies performed this visit Discharge Plan Discharge Patient Disposition: Admitted As Inpatient Clinical Impression: Alcohol intoxication, Suicidal ideation Condition: Stable Coding Level of Care Code ED Jacker for Vicente Tobin
[2024-08-01 16:33] VITALS: BP 118/65; PULSE 76; RESP 18; O2SAT 99
--- NOTE | 2024-08-01 16:37 | PC.NURSE ---
PATIENT SHOUTING FROM ROOM STATING THAT SHE DOESN'T WANT TO LIVE ANYMORE. NURSE EDUCATED ABOUT YELLING IN THE ER, PATIENT STATES FUCK YOU, YOU FUCKING BITCH.
--- NOTE | 2024-08-01 16:47 | PC.PHAR ---
pt unable to verify home medications. Med rec completed via [facility] with last fill dates and day supply.
[2024-08-01] MEDS: LORazepam 1 MG/0.5 ML injection 2 MG IM (16:48)
[2024-08-01] MEDS: water for injection-sterile 10 ML (16:48)
[2024-08-01] MEDS: ziprasidone 20 mg/mL SDV IM (16:48)
--- NOTE | 2024-08-01 17:15 | PC.NURSE ---
PT BLOWING NOSE ON BED SHEET, THIS NURSE OFFERED PT A BOX OF TISSUES. PT ATTEMPTED TO HIT NURSE IN FACE AND STATED FUCK YOU BITCH. SECURITY PRESENT AT TIME OF INCIDENT, SECURITY SAFELY RESTRAINED PT TO PREVENT HARM TO NURSE OR PT. PT PLACED IN RETRAINT BED.
[2024-08-01 17:51] LABS: Basophils % 0.6 %; Eosinophils # 0.1 10^3/uL (0.0-0.8); Eosinophils % 1.4 %; Hematocrit 36.5 % (36-47); Lymphocytes # 1.9 10^3/uL (0.8-4.8); Lymphocytes % 39.4 %; Mean Corpuscular HGB Conc 33.7 g/dL (30-55); Mean Corpuscular Hemoglobin 31.5 pg (27-33); Mean Corpuscular Volume 93.4 fl (85-98); Monocytes # 0.2 10^3/uL (0.2-0.9); Monocytes % 4.9 %; Neutrophils # 2.58 10^3/uL (1.8-7.7); Neutrophils % 53.3 %; Nucleated Red Blood Cells % 0 %; Platelet Count 265 10^3/cmm (157-399); Red Blood Count 3.91 10^6/uL (3.85-5.65); White Blood Count 4.85 10^3/uL (3.29-11.43)
--- NOTE | 2024-08-01 17:58 | PC.NURSE ---
96 hr rights reviewed with pt @1640 with assistance of FOUZIA Herrera [employer] attempted to be reviewed with pt @this time. Pt would not verbalize understanding when asked. Pt continues to yell at the top of her lungs and try to beat her head and hands against wall in ER room. Code 10 called after pt attempted to assault nursing staff. Pt placed in restraint bed. Patient copy of 96 hr rights left in room with pt. PSA sat with pt for continued 1:1 observation.
[2024-08-01 18:47] LABS: Alanine Aminotransferase 17 U/L (0-33); Alcohol Level 198 mg/dL (0-10); Alkaline Phosphatase 59 U/L (35-105); Anion Gap 17.9 (5-19); Aspartate Amino Transferase 16 U/L (0-32); Blood Urea Nitrogen 13 mg/dL (6-20); Calcium 8.6 mg/dL (8.5-10.5); Carbon Dioxide 20 mmol/L (22-29); Chloride 98 mmol/L (98-107); Globulin 2.6 g/dL (1.3-4.6); Glomerular Filtration Rate 103.4 mL/min (90-130); Glucose 93 mg/dL (65-115); Osmolality Calculated 274 mOsm/kg (285-295); Potassium 3.9 mmol/L (3.5-5.1); Sodium 132 mmol/L (136-145); Thyroid Stimulating Hormone 1.58 uIU/mL (0.27-4.20); Total Bilirubin 0.4 mg/dL (0.15-1.2); Total Protein 6.6 g/dL (6.6-8.7)
[2024-08-01 18:48] LABS: Acetaminophen < 5.0 ug/mL (10-30); Salicylate < 0.3 mg/dL (3-10)
--- NOTE | 2024-08-01 19:00 | PC.NURSE ---
DR. MART AND THIS NURSE ASSESSED PT NEED FOR RESTRAINTS. PT STILL RESISTIVE TO CARE PER DR. MART PT TO STAY IN RESTRAINT BED. THIS NURSE ASSESSED PT CIRCULATION, SKIN COLOR, AND TEMP - ALL APPROPRIATE.
--- NOTE | 2024-08-01 19:24 | PC.NURSE ---
this nurse assumed pt care from Antonia MAXWELL at 1900.
[2024-08-02 00:19] LABS: HCG Qualitative Urine. Negative (Negative)
[2024-08-02 00:21] LABS: Bilirubin Urine Negative (Negative); Blood Urine Negative (Negative); Glucose Urine UA Negative (Normal); Ketones Urine Negative (Negative); Leukocyte Esterase Urine 1+ (Negative); Nitrate Urine Positive (Negative); Protein Urine Negative (Negative); Specific Gravity, Urine 1.005 (1.005-1.030); Urine Appearance Clear (CLEAR); Urine Color Yellow (Yellow); Urobilinogen Urine 0.2 mg/dL (Negative); pH Urine 5.5 (5-7)
[2024-08-02 00:24] LABS: Add Urine Microscopic? YES; Bacteria Urine 4+ /hpf; Hyaline Casts Urine 0-4 /lpf; RBC Urine 0-2 /hpf (0-2); Squamous Epithelial Cell Urine 0-5 /hpf (0-5)
[2024-08-02 00:27] LABS: Add Urine Culture? Yes; Amphetamines Screen Urine Negative (Negative); Barbiturates Screen Urine Negative (Negative); Benzodiazepines Screen Urine Positive (Negative); Cocaine Screen Urine Negative (Negative); Opiate Screen Urine Negative (Negative); PCP Screen Urine Negative (Negative); THC Screen Urine Negative (Negative)
[2024-08-02 06:12] VITALS: BP 110/59; PULSE 73; RESP 16; O2SAT 95
== END 2024-08-02 09:08 | disposition home or self-care (01) ==
PROVIDERS: Emergency Medicine; Emergency Provider Family Medicine
DX: F10.129 Alcohol abuse with intoxication, unspecified (principal); Y90.6 Blood alcohol level of 120-199 mg/100 ml; R45.851 Suicidal ideations; F17.210 Nicotine dependence, cigarettes, uncomplicated; N18.9 Chronic kidney disease, unspecified; Z85.048 Personal history of other malignant neoplasm of rectum, rectosigmoid junction, and anus
CPT/HCPCS: 36415; 80053; 80306; 80307; 81001; 81025; 84443; 85025; 87077; 87086; 87186; 93005; 96372; 99284; J2060; J3486

== ENCOUNTER 2024-08-02 12:29 | Emergency (ER) | payer MEDICARE, MEDICAID, SELFPAY ==
[2024-08-02 12:55] VITALS: BP 108/64; PULSE 81; RESP 18; TEMP 36.6; O2SAT 97; BMI 25.8
--- NOTE | 2024-08-02 12:58 | W.ED.GENADLT ---
HPI - General Adult General: Chief complaint: Psychiatric Symptoms Stated complaint: 96 Time Seen by Provider: 08/02/24 12:30 History of Present Illness: 54-year-old female who presents to the emergency room under a 96-hour old brought in by [facility]. Patient was seen earlier the day I had been here overnight she had become intoxicated had made suicidal comments when she sobered up she was no longer suicidal. She had been on a 96-hour hold we had psych since see her by telepsych they had screened her felt that she did not require inpatient treatment and she was discharged home. Family sought out another 96-hour hold and she was returned within a few hours. She has not been taking her medications for some time although there is just some discrepancy between her report and the family's report about how long she has been off of the. Dr. Borden earlier today and encouraged her to follow-up through crisis intervention. She denies doing anything to advance any lethality since she was discharged earlier today and she denies any alcohol use since the time she was discharged. Related Data Home Medications ?Medication ?Instructions ?Recorded ?Confirmed cyanocobalamin (vitamin B-12) 5,000 mcg PO DAILY 04/03/24 08/02/24 5,000 mcg capsule folic acid 1 mg tablet 1 mg PO DAILY 04/03/24 08/02/24 Previous Rx's ?Medication ?Instructions ?Recorded albuterol sulfate 90 mcg/actuation 1 inh inhalation QID PRN shortness 01/12/23 aerosol inhaler of breath or wheezing #8.5 grams methotrexate sodium 25 mg/mL 25 mg SUBCUT Q7D #10 mL 12/28/23 injection solution Held on 03/26/24. Instructions: Resume on 04/03/24. risankizumab-rzaa 150 mg/mL 150 mg SUBCUT .Q12W #4 mL 01/04/24 subcutaneous pen injector (Skyrizi) Held on 03/26/24. Instructions: Resume on 04/03/24. apixaban 5 mg tablet (Eliquis) 5 mg PO BID #60 tabs 02/10/24 buspirone 15 mg tablet 15 mg PO BID #60 tabs 03/13/24 gabapentin 600 mg tablet 600 mg PO BEDTIME #30 tabs 03/13/24 quetiapine 200 mg tablet (Seroquel) 200 mg PO DAILY #30 tabs 03/13/24 ropinirole 4 mg tablet 4 mg PO BEDTIME #30 tabs 03/13/24 Allergies Allergy/AdvReac Type Severity Reaction Status Date / Time coconut oil Allergy Severe anaphylaxis Verified 05/25/24 13:43 mushroom Allergy Severe trouble Verified 05/25/24 13:43 breathing duloxetine (From Cymbalta) Allergy Intermediate dizziness,v Verified 05/25/24 13:43 omiting atorvastatin AdvReac Severe Rhabdomyoly Verified 05/25/24 13:43 sis PFSH ED PFSH: Medical History Immunization counseling Plaque psoriasis Small bowel obstruction Nausea & vomiting Small bowel obstruction Obstructive sleep apnea B12 deficiency Cocaine use disorder, severe, in sustained remission Acute kidney injury Loss of hair DDD (degenerative disc disease), lumbar Lumbar spondylosis Hydronephrosis of right kidney Rectal cancer Cancer free for 14 years. Lumbar radiculitis Peripheral neuropathy Obstructive sleep apnea Restless leg syndrome Chronic post-traumatic stress disorder Pulmonary embolism CKD (chronic kidney disease) Osteoarthritis of knees, bilateral Immunosuppression Psoriasis Psoriatic arthritis Surgical History Colostomy in place History of resection of rectum H/O: hysterectomy Due to fibroids. H/O tubal ligation Family History Mother Cancer Social History Smoking and tobacco/nicotine status: current every day tobacco/nicotine user cigarettes Packs smoked per day: 0.5 Years cigarettes smoked: 41 [ Other cigarette details: Pt reports smoking at age 3] Alcohol intake: current Alcohol intake frequency: holidays/special occasions only Substance/Drug Use: former Additional social history: cocaine, speed, crystal meth in the past Lives independently: Yes Household members: none Marital status: Legally Current occupational status: disabled Do you think of yourself as: Straight/Heterosexual Current gender identity: Female Physical Exam Const: GENERAL APPEARANCE: cooperative ORIENTATION/CONSCIOUSNESS: Yes awake, Yes oriented to person, Yes oriented to place and Yes oriented to time HENMT: COMMON NORMALS: normocephalic, atraumatic and hearing grossly normal bilaterally HEAD & SCALP: normocephalic and atraumatic Resp: COMMON NORMALS: normal respiratory effort, No retractions, No use of accessory muscles and clear to auscultation bilaterally AUSCULTATION: clear to auscultation bilaterally Cardio: COMMON NORMALS: regular rate, regular rhythm and No murmurs present (Cardio) RATE: regular rate RHYTHM: regular rhythm Extremity: COMMON NORMALS: normal to inspection, capillary refill normal, no clubbing, cyanosis or edema, no calf tenderness and no pedal edema Neuro: SENSORIUM/ORIENTATION: Yes oriented to person, Yes oriented to place and Yes oriented to time Skin: COMMON NORMALS: no rashes or lesions noted GENERAL SKIN EXAM: no rashes or lesions noted Course Vital Signs: Vital signs: Vital Signs Temperature 97.9 F 08/02/24 12:55 Pulse Rate 81 08/02/24 12:55 Respiratory Rate 18 08/02/24 12:55 Blood Pressure 108/64 08/02/24 12:55 Pulse Oximetry 97 08/02/24 12:55 Oxygen Delivery Me thod Room Air 08/02/24 12:55 MDM - General Adult Medical Decision Making Patient was just seen within the last few hours and assessed by psychiatry and felt safe to be discharged. Psychiatrist had discussed patient plans for follow-up with her specifically and gave her different avenues to pursue if she had further problems. Patient returns back on a 96-hour hold via law enforcement she has not done anything to advance lethality she is not had any more alcohol. I did discuss with the family they are frustrated with the patient because they are having difficult time dealing with her they feel like for the last few weeks she has been making multiple threats of suicide ideation but has not followed through on anything to this point. Also very frustrated with her lack of taking her medications or abstaining from alcohol. I discussed with Dr. Borden again he is going to reevaluate the patient via telepsych and render his opinion. Dr. Borden seen the patient via telehealth recommended that she does not at this time need to be admitted to the [facility]. He feels she can be safely discharged recommends avoiding alcohol pursuing assistance with substance abuse issues through local resources also utilize the crisis stabilization and [facility]. Medical Records I reviewed the patient's medical records. No radiology studies performed this visit Discharge Plan Discharge Patient Disposition: Home Clinical Impression: Anxiety, Depression Condition: Stable Prescriptions: No Action albuterol sulfate 90 mcg/actuation HFA aerosol inhaler 1 inh inhalation QID PRN (Reason: shortness of breath or wheezing) Qty: 8.5 5RF Eliquis 5 mg tablet 5 mg PO BID Qty: 60 2RF methotrexate sodium 25 mg/mL solution 25 mg SUBCUT Q7D Qty: 10 1RF Rx Instructions: on fridays folic acid 1 mg tablet 1 mg PO DAILY cyanocobalamin (vitamin B-12) 5,000 mcg capsule 5,000 mcg PO DAILY Skyrizi 150 mg/mL pen injector 150 mg SUBCUT .Q12W Qty: 4 5RF Rx Instructions: subcutaneous injection at Week 0, Week 4, and every 12 weeks thereafter buspirone 15 mg tablet 15 mg PO BID Qty: 60 0RF ropinirole 4 mg tablet 4 mg PO BEDTIME Qty: 30 0RF Rx Instructions: take two hours before bed quetiapine [Seroquel] 200 mg tablet 200 mg PO DAILY Qty: 30 0RF gabapentin 600 mg tablet 600 mg PO BEDTIME Qty: 30 0RF Discharge Orders: Discharge ED (Routine); Ordered 08/02/24 Ordered By: Marv Aguilar Discharge Diet: Usual diet Discharge Activity: Resume usual activity Patient Instructions: Opioid Safety, Pain Management Activity Restrictions/Additional Instructions: Thank you for choosing [facility] for your healthcare needs today. It is very important that you follow up as instructed or that you return to the Emergency Department should you have concerns or if your condition changes or worsens in any way. You are seen in the emergency room for a 96-hour hold evaluation. The on-call psychiatrist repeated his evaluation and determined that you did not require inpatient care. He does recommend that you follow-up with [facility] or go to crisis intervention if you have more difficulty with anxiety and depression. Also recommend pursuing assistance with substance abuse issues such as alcohol. Print Language: Italian Coding Level of Care Code ED Analyzer Sales for Vicente Tobin
--- NOTE | 2024-08-02 14:19 | PC.PHAR ---
Pt states it has been a month since she last took any of her medications. Records show last fill dates were in March for most medications.
== END 2024-08-02 17:17 | disposition home or self-care (01) ==
PROVIDERS: Emergency Provider Family Medicine
DX: F41.9 Anxiety disorder, unspecified (principal); F32.A Depression, unspecified; Z79.01 Long term (current) use of anticoagulants; F17.210 Nicotine dependence, cigarettes, uncomplicated; Z85.048 Personal history of other malignant neoplasm of rectum, rectosigmoid junction, and anus; N18.9 Chronic kidney disease, unspecified
CPT/HCPCS: 99283

== ENCOUNTER → 2024-09-28 11:39 | Outpatient (BNVA) | payer MEDICARE, OTHER, SELFPAY | PROVIDERS: PCP Family Medicine; Visit Provider Psychiatry & Neurology Psychiatry | DX: Z79.899 Other long term (current) drug therapy (principal) | CPT/HCPCS: 80061; 83036 ==

== ENCOUNTER 2024-09-30 10:02 | Emergency (ER) | payer MEDICARE, MEDICAID, SELFPAY ==
--- OUTSIDE RECORDS SUMMARY | 2016-05-05 07:14 | XMS_ITS | Continuity of Care Document ---
Author Organization [facility] Address [id number] [address] Phone Care Team Providers Care Cardiologist Name Role Phone Unavailable Unavailable Unavailable Allergies, Adverse Reactions, Alerts Substance Reaction Status Criticality DULOXETINE HCL Nausea/Vomiting(unknown) Active N o Information Medications Medication Instructions Dosage Effective Dates (start - stop) Status Comments oxycodone 10 mg tablet Take one Tablet by mouth every 8 hours as needed for pain - Active must last 28 days baclofen 10 mg tablet take 1 tablet by oral route every day ONLY as needed for muscle spasms - Active Lyrica 200 mg capsule take 1 capsule by oral route 2 times every day 200 MG - Active tramadol 50 mg tablet take 1 tablet by oral route every 6 hours as needed for pain 50 MG - Active atorvastatin 20 mg tablet take 1 tablet by oral route every day for cholesterol - Active cyanocobalamin (vit B-12) 1,000 mcg/mL injection solution inject 1 milliliter by intramuscular route every month 1000 MCG - Active folic acid 1 mg tablet take 1 tablet by oral route daily - Active furosemide 40 mg tablet take 1 tablet by oral route daily for swelling - Active hydroxyzine HCl 25 mg tablet take 1 tablet by oral route every day as needed - Active Otrexup (PF) 25 mg/0.4 mL subcutaneous auto-injector inject 0.4 milliliter by subcutaneous route every week 25 MG - Active mirtazapine 30 mg tablet take 1 tablet by oral route every day before bedtime 30 MG - Active omeprazole 20 mg capsule,delayed release take 2 capsules 30 minutes to 1 hour before a meal as needed for acid reflux - Active paroxetine 40 mg tablet take 1 tablet by oral route every day 40 MG - Active ropinirole 2 mg tablet take 1 tablet by oral route every day at bedtime for Restless Leg - Active erythromycin 250 mg capsule,delayed release take 1 capsule by oral route daily - Active Ativan 1 mg tablet take 1 tablet by oral route every day as needed for anxiety - Active Humira Pen 40 mg/0.8 mL subcutaneous - Active Problems Condition Type Effective Dates (start - stop) Clini porsche Status Comments No Known Problems Procedures Procedure Date No Charge NO CHARGE OFFICE/OUTPATIENT VISIT EST COMPREHEN METABOLIC PANEL LIPID PANEL ROUTINE VENIPUNCTURE COMPLETE CBC AUTOMATED OFFICE/OUTPATIENT VISIT, EST OFFICE/OUTPATIENT VISIT, NEW Advance Directives Directive Yes / No Effective Date File Name No Information Encounters Encounter Description Practice Location Reason(s) For Visit Diagnoses Date Provider Providers Copied on Encounter [facility], [id number] [facility], [facility] [place], [id number], [place] tel:[phone] Family Medicine F1 No Information 7 No Information [facility], [id number] [place], [id number], [place] tel:[phone] [facility] Post-traumatic stress disorder, chronic 6 No Information [facility], [id number]- [facility] [place], [id number], [place] tel:[phone] [facility] No Information 6 No Information [facility], [id number]- [facility] [place], [id number], [place] tel:[phone] Family Medicine F1 No Information 6 No Information [facility], [id number]- [facility] [place], [id number], [place] tel:[phone] Family Medicine F1 Low back painLong term (current) use of opiate analgesic 6 No Information OFFICE/OUTPA TIENT VISIT [facility], [id number]- [facility], [place], [place], [id number], [place] tel:[phone] Family Medicine F1 PE including Breast exam (chief complaint) Encounter for oth screening for malignant neoplasm of breastCancer of colonLow back painNicotine dependence due to cigarettes 6 No Information [facility], [id number] [place], [place], [id number], [place] tel:[phone] Family Medicine F1 No Information 6 No Information [facility], [id number] [place], [id number], [place] tel:[phone] Family Medicine F1 Low back painLong term (current) use of opiate analgesic 6 No Information [facility], [id number], [id number], [place] tel:[phone] Family Medicine F1 Other psoriatic arthropathyHyp erlipidemia, unspecified 6 No Information OFFICE/OUTPA TIENT VISIT, [facility], [id number] [place], [place], [id number], [place] tel:[phone] Family Medicine F1 4 WK follow up (chief complaint) preventive exam (chief complaint) Other psoriatic arthropathyHyp erlipidemiaObe sity 6 No Information OFFICE/OUTPA TIENT VISIT, [facility], [id number], [id number], [place] tel:[phone] Family Medicine F1 Establish Care (chief complaint) BP concerns (chief complaint) Cancer of colonObesityOt her psoriatic arthropathyPos t-traumatic stress disorderHyperl ipidemiaDepres acacia NOSRestless leg syndromeStroke NOSGERD w/o esophagitis 6 No Information Family History Family Member Type Diagnosis Age At Onset No Information Payers Payer name Insurance type Covered democrat ID Authorlashauna tikrys(s) No Information Social History Type Description Quantity Date Captured Comments Alcohol Use Details Unknown Caffeine Use Details Unknown Tobacco Use Status Smoking Status No Information Sex Female Sexual Orientation Heterosexual Gender Identity Female Chief Complaint And Reason For Visit No Information Reason For Referral Reason For Referral No Information Plan Of Treatment Date Type Action Status Goal Tobacco cessation counseling completed Referral Ordered: Referrals: Pain Medicine Location: [facility] Appointment date/timeframe: 11/05/2015 ordered Referral Ordered: Referrals: Mammogram Location: [facility]. Diagnostic testing Appointment date/timeframe: 09/26/2015 ordered Referral Ordered: Referrals: MRI Lumbar spine Location: [facility] ordered History Of Present Illness Encounter Date Complaint History Of Prese nt Illness PE including Breast exam Patient is here today with her granddaughter; pt states she had her MRI of her L-spine on September 09, 2015; Pt states she had her annual colonoscopy and there were complications post-procedure and went to the ER, then hospitalized, stating there was gas in her liver. pt states colonoscopy results, otherwise were normal; still experiencing some abdominal tenderness; Pt last mammogram was last yr and she states results were normal; sister dx with breast cancer in her 20's and she is in her 40's now; another sister dx with breast and cervical cancer. No detected changes in breasts; pt ins. will not cover Celexa, will prescribe flexeril and Oxycodone for pain mgt. 4 WK follow up Patient comes in for follow-up. 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 Patient thought she had a mild viral syndrome several days ago that was associated with loose stools though this has resolved. She feels some residual fatigue and has a mild bi- temporal headache but otherwise feels well and is in good spirits. She has chronic pain meds for symptoms. preventive exam Diet regular. Ad ditional information: Pt. has had complete Hyst; her prior hx of colon CA is followed w/ reg. surviellance; her last breast exam and mammogram was > 1 year ago and she is due for f/u on this. Discussed. Establish Care Pt. here today t o establish a new primary care physician; she has seen 6 specialists for multiple medical problems moved from [facility] to [place] about 2 months ago. She has no acute problems at this time and is not requesting refills. Her med list is not complete, though there are two lists to work from.Hx of colostomy for rectal CA about 4 years ago; specifics uncertain, though she has had regular surveillance which now is yearly lower endoscopy. BP concerns No BP concerns t michelle; no hx of HTN, though pt states reason for her CVA was related to the hyperlipidemia and lower blood pressure. Functional Status Date Functional Assessmen t No Information Instructions Date Instruction Additional Infor davian schedule screening mammogram. Re lated to Encounter for oth screening for malignant neoplasm of breast surveilance UTD by GI and nayelyo n Related to Cancer of colon MRI report pending; anticipate referral to pain clinic. Related to Low back pain encouraged further w t. loss; Encouraged weight loss for the benefit in managing and prevention of chronic medical conditions relevant to the patient. Related to Obesity will need to fax res ults to Dr. Miramontes, her card writer hand, in [facility] who will need results to manage her meds.f/u 1-2 months; will do breast exam at that time and schedule mammogram; last mammogram > 1 yr. ago. Related to Other psoriatic arthropathy pt. fasting; checkin g lipids for further mgt. Related to Hyperlipidemia cont. Statin Related to Hyper lipidemia Assessments Type Assessment Date No Information Patient Care Teams Name Effective Dates (start - stop) Status Members No Information
--- OUTSIDE RECORDS SUMMARY | 2023-11-04 05:25 | XMS_ITS ---
Author Organization [facility] [place] Address [address] [place] [address] Care Team Providers Care Kilnman Name Role Phone Robby Svitlana Primary Care Provider FUNMILAYO Pinzon Unavailable [phone] PAYAM WERNER Unavailable [phone] REASON FOR VISIT 3-4 mo w/ ua/pvr/bmp/sarah Medications Medication SIG (Take, Route, Frequency, Duration) Notes Start Date End Date Status Folic Acid Active Gabapentin 600 MG 1 tablet Orally Once a day Active Eliquis 5 MG 1 tablet Orally Twice a day Active Albuterol Active busPIRone HCl 15 MG 1 tablet Orally Twice a day Active Paxil 40 MG 1 tablet in the morning Orally Once a day Active Protonix 40 MG 1 tablet Orally twice a day Active Methotrexate sq injections weekly Active Orencia sq injections weekly Active rOPINIRole HCl 4 MG 1 tablet 1 to 3 hours before bedtime Orally Once a day Active Trelegy Ellipta Acti ve SEROquel 200 MG 1 tablet at bedtime Orally Once a day Active Problems Problem Type SNOMED Code ICD Code Onset Dates Problem Status W/U Status Risk Notes Problem History of colorectal cancer (7036589785) History of colorectal cancer (Z85.038) Active confirmed Problem Current smoker (97118004) Current smoker (F17.200) Active confirmed Procedures Procedure Date Ordered Date Performed Result Body Sit e Bladder Scan 11/04/2023 N/A Encounters Encounter Location Date Provider Diagnosis [facility] [place] [address] [place] [address] 11/04/2023 PAYAM WERNER Hydronephrosis of ri ght kidney N13.30 ; Low back pain M54.50 ; History of urinary retention Z87.898 ; History of urinary tract infection Z87.440 ; History of hysterectomy Z90.710 ; History of radiation therapy Z92.3 ; History of colorectal cancer Z85.038 ; Establishing care with new doctor, encounter for Z76.89 and Current smoker F17.200 Assessments Encounter Date Diagnosis (ICD Code) Assessment Notes Treatment Notes Treatment Clinical Notes Section Notes 11/04/2023 Hydronephrosis of right kidney (ICD-10 - N13.30) 11/04/2023 Low back pain (ICD-10 - M54.50) 11/04/2023 History of urinary retention (ICD-10 - Z87.898) 11/04/2023 History of urinary tract infection (ICD-10 - Z87.440) 11/04/2023 History of hysterectomy (ICD-10 - Z90.710) 11/04/2023 History of radiation therapy (ICD-10 - Z92.3) 11/04/2023 History of colorectal cancer (ICD-10 - Z85.038) 11/04/2023 Establishing care with new doctor, encounter for (ICD-10 - Z76.89) 11/04/2023 Current smoker (ICD-10 - F17.200) Plan Of Treatment Pending Test Test Name Order Date Urinalysis, Routine 11/04/2023 Bladder Scan 11/04/2023 Progress Notes * Maura HERMOSILLO EDOB:1970 ( 54 yo F)Acc No.[id number]:11/04/2023 Progress Notes Patient: Maura HERNANDEZ Provider: MELVINA Adams :1970 A ge:53 Y S ex:Female Date:11/04/2023 Address:[facility] [address], [address] [place], [place] [id number] Pcp:Svitlana Bustamante Subjective: * Chief Complaints: * 1 . 3-4 mo w/ ua/pvr/bmp/sarah. * HPI: M igrated HPI: Ms. Hermosillo is a 53-year-old female patient with history of urinary retention. She was previous patient of Dr. James. Patient states she saw him in the past because she would drink a ton of fluids but only pee once during the day. She reports she was told that her bladder was burned up from radiation and she was put on Macrobid daily for 1 year. She has a history of colorectal cancer in her 40s with chemo and radiation. She has a colostomy. She is a current everyday smoker. She is status post hysterectomy. She currently has a new lung nodule that is being worked up for possible malignancy. She states she has a follow-up about this tomorrow. She presented to [place] [facility] on 05/29/2023 with complaint of lower abdominal pain and shortness of breath. WBC was elevated at 19, creatinine 1.[address] showed a very distended bladder with bilateral hydronephrosis and hydroureter. Catheter was placed with 3 L of output. Patient states prior to this ER visit she was having urgency and peeing like normal at home. Denies any gross hematuria, fever, dysuria or flank pain. Patient was diagnosed with pneumonia and possible sepsis, then transferred to [facility]. repeat CT showed improvement in hydronephrosis with continued mild right hydronephrosis and a decompressed bladder with Quevedo in place. Creatinine improved to 1.4, then down to 0.8. She reports history of 3 mini strokes as well as problems in her lower back. She presented to clinic on 06/11/2023 for a voiding trial in the passed. R enal ultrasound on 06/25/2023 reveals mild right hydronephrosis, otherwise normal. Here today at interval f/u for symptom reassessment with UA/PVR and BMP/ SARAH. * Medical History: * Medications: T arron Vaughn , Taking SEROquel 200 MG Tablet 1 tablet at bedtime Orally Once a day , Taking rOPINIRole HCl 4 MG Tablet 1 tablet 1 to 3 hours before bedtime Orally Once a day , Taking Protonix 40 MG Tablet Delayed Release 1 tablet Orally twice a day , Taking Paxil 40 MG Tablet 1 tablet in the morning Orally Once a day , Taking Orencia , Notes to Pharmacist: sq injections weekly, Taking Methotrexate , Notes to Pharmacist: sq injections weekly, Taking Gabapentin 600 MG Tablet 1 tablet Orally Once a day , Taking Folic Acid , Taking Eliquis 5 MG Tablet 1 tablet Orally Twice a day , Taking busPIRone HCl 15 MG Tablet 1 tablet Orally Twice a day , Taking Albuterol Objective: * Vitals: Assessment: * Assessment: 1. H ydronephrosis of right kidney - N13.30 (Primary) S pecify :chronic, mild 2 . L ow back pain - M54.50 S pecify :chronic 3 . H istory of urinary retention - Z87.898 4 . H istory of urinary tract infection - Z87.440 5 . H istory of hysterectomy - Z90.710 ? 6 . H istory of radiation therapy - Z92.3 7 . H istory of colorectal cancer - Z85.038 8 . E stablishing care with new doctor, encounter for - Z76.89 9 . C urrent smoker - F17.200 Plan: * Treatment: * Procedure Codes: 8 1003 URINALYSIS, AUTO, W/O SCOPE, 96325 US URINE CAPACITY MEASURE * Billing Information: * Visit Code: * Procedure Codes: 39948 URINALYSIS, AUTO, W/O SCOPE. 07769 US URINE CAPACITY MEASURE. * Electronic signature of PAYAM WERNER APRN on 09/30/2024 at 10:10 AM CDT Sign off status: Pending * Provider: Ashok Werner APRN-[employer] PAN TANK OPERATOR Date: 0 11/04/2023 Generated for Jamil fung/Cecily/Dollysmitting on: 0 09/30/2024 10:10 AM CDT History and Physical Notes * HPI (History of Present Illness) Category Sub-Category Detail Notes Category Not es Migrated HPI Ms. Hermosillo is a 53-year-old female patient with history of urinary retention. She was previous patient of Dr. James. Patient states she saw him in the past because she would drink a ton of fluids but only pee once during the day. She reports she was told that her bladder was burned up from radiation and she was put on Macrobid daily for 1 year. She has a history of colorectal cancer in her 40s with chemo and radiation. She has a colostomy. She is a current everyday smoker. She is status post hysterectomy. She currently has a new lung nodule that is being worked up for possible malignancy. She states she has a follow-up about this tomorrow. She presented to [place] on 05/29/2023 with complaint of lower abdominal pain and shortness of breath. WBC was elevated at 19, creatinine 1.[address] showed a very distended bladder with bilateral hydronephrosis and hydroureter. Catheter was placed with 3 L of output. Patient states prior to this ER visit she was having urgency and peeing like normal at home. Denies any gross hematuria, fever, dysuria or flank pain. Patient was diagnosed with pneumonia and possible sepsis, then transferred to [facility]. repeat CT showed improvement in hydronephrosis with continued mild right hydronephrosis and a decompressed bladder with Quevedo in place. Creatinine improved to 1.4, then down to 0.8. She reports history of 3 mini strokes as well as problems in her lower back. She presented to clinic on 06/11/2023 for a voiding trial in the passed. Renal ultrasound on 06/25/2023 reveals mild right hydronephrosis, otherwise normal. Here today at interval f/u for symptom reassessment with UA/PVR and BMP/ SARAH
[2024-09-30 10:07] VITALS: BP 137/77; PULSE 78; RESP 14; TEMP 36.4; O2SAT 99
--- OUTSIDE RECORDS SUMMARY | 2024-09-30 10:10 | XMS_ITS | Encounter Summary ---
Author Organization [facility] Address [address] [place] [address] Care Team Providers Care Press Tender Name Role Phone Burton Judge DO Primary Care Provider [phone] Encounter Details Date Type Department Care Team (Latest Contact Info) Description 09/12/2015 Ancillary Orders [facility] Pre-Registration [place] CALL TO MAKE APPOINTMENT ONLY [address] [place] [address] Burton Judge DO [address] [place] [id number] Visit for screening mammogram (Primary Dx) Social History Tobacco Use Types Packs/Day Years Used Date Smoking Tobacco: Some Days Alcohol Use Standard Drinks/Week Comments Not Asked 0 (1 standard drink = 0.6 oz pur e alcohol) Comments No Sex and Gender Information Value Date Recorded Sex Assigned at Not on file 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
--- OUTSIDE RECORDS SUMMARY | 2024-09-30 10:11 | XMS_ITS | Encounter Summary ---
Author Organization [facility] Address [address] [place] [address] Care Team Providers Care Freelance Photographer Name Role Phone RyanBurton clai Rik MUÑOZ Primary Care Provider [phone] Encounter Details Date Type Department Care Team (Latest Contact Info) Description 07/09/2004 Outpatient Historical [facility] OUTPATIENT Joaquín Santana MD NO ADDRESS ON FILE BIPOLAR DISORDER, UNSPECIFIED (CMS/HCC) (Primary Dx) Social History Tobacco Use Types Packs/Day Years Used Date Smoking Tobacco: Never Assessed Comments Unknown Sex and Gender Information Value Date Recorded Sex Assigned at Not on file 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 Gender Identity Not on file Sexual Orientation Not on file documented as of this encounter Plan of Treatment Not on file documented as of this encounter Procedures Procedure Name Priority Date/Time Associated Diagnosis Comments BUN Routine 07/09/2004 10:57 AM CDT TSH Routine 07/09/2004 10:57 AM CDT CREATININE Routine 07/09/2004 10:57 AM CDT documented in this encounter Results * CREATININE (07/09/2004 10:57 AM CDT) CREATININE 1.0 0.7 - 1.2 mg/dL INTERFACE SYSTEM 07/09/2004 10:5 7 AM CDT us Joaquín Santana MD CHEMISTRY ORDERABLES Final Res ult INTERFACE SYSTEM Refer to clinic/hospital department * BUN (07/09/2004 10:57 AM CDT) BUN 10 7 - 17 mg/dL INTERFACE SYSTEM 07/09/2004 10:5 7 AM CDT us Joaquín Santana MD CHEMISTRY ORDERABLES Final Res ult Performing Organization Address City/[facility] de Phone Number INTERFACE SYSTEM Refer to clinic/hospital department * TSH (07/09/2004 10:57 AM CDT) TSH 2.81 0.49 - 4.67 uIU/ml INTERFACE SYSTEM 07/09/2004 10:5 7 AM CDT us Joaquín Santana MD CHEMISTRY ORDERABLES Final Res ult Performing Organization Address [facility] Phone Number INTERFACE SYSTEM Refer to clinic/hospital department documented in this encounter Visit Diagnoses Diagnosis Bipolar disorder, unspecified (CMS/[facility])- Primary Bipolar disorder, unspecified documented in this encounter Care Teams Freelance Photographer Relationship Specialty Start Date End Date Burton Judge DO PCP - General Family Practice 09/03/15 documented as of this encounter
--- OUTSIDE RECORDS SUMMARY | 2024-09-30 10:11 | XMS_ITS | Clinical Summary ---
Author Organization [facility] Address [address] [facility] Attn: [place] [address] Care Team Providers Care Photographic Spotter Name Role Phone Burton Judge DO Primary Care Provider Allergies Active Allergy Reactions Criticality Noted Date Comments Atorvastatin Other (See Comments) 01/02/2020 Woke up and could not feels legs. CK was high Duloxetine Dizziness Low 09/09/2015 Medications apixaban (Eliquis) 5 mg tablet TK 1 T PO BID 0 Active pantoprazole (PROTONIX) 40 mg Tablet, Delayed Release (E.C.) TK 1 T PO BID 0 Active Folic Acid 20 mg Capsule Take by mouth. 0 Active umeclidinium-v ilanteroL (Anoro Ellipta) 62.5-25 mcg/actuation Disk with Device 0 Active etanercept (EnbreL) 50 mg/mL (0.98 mL) Syringe INJECT 1 ML SUBCUTANEOUSLY Q WEEK 0 Active QUEtiapine (SEROquel) 300 mg tablet TK 1 T PO QHS 0 Active FLUoxetine (PROzac) 20 mg capsule 0 Active rOPINIRole (REQUIP) 4 mg Tablet 4 mg daily at bedtime. 0 Active pregabalin (LYRICA) 100 mg Capsule TK 1 C PO TID 0 Active fluticasone propion-salmet Willian (ADVAIR HFA) 115-21 mcg/actuation HFA Aerosol Inhaler Take 2 Puffs by inhalation every 12 hours. 12 Gram 1 6 Active cyanocobalamin (VITAMIN B-12) 1,000 mcg/mL Solution Inject 1 mL (1,000 mcg) by intramuscular injection every 30 days. 1 mL 0 6 Active QUEtiapine (SEROquel) 100 mg tablet Take 1.5 Tablet (150 mg) by mouth daily at bedtime. 45 Tablet 1 6 Active hydrOXYzine HCL (ATARAX) 25 mg tablet TAKE ONE TABLET BY MOUTH EVERY 6 HOURS NEEDED FOR ANXIETY 90 Tablet 0 6 Active methotrexate PF 25 mg/mL Solution Inject 0.8 mL (20 mg) by subcutaneous injection every 7 days. 4 mL 1 6 Active Active Problems Problem Noted Date Diagnosed Date Moderate episode of recurrent major depressive d isorder 09/25/2015 Tobacco use 09/23/2015 Other psoriasis 08/14/2010 Chronic low back pain Mild persistent asthma without complication Restless leg syndrome Suicidal ideation Family History Medical History Relation Name Comments No Known Problems Brother Healthy Daughter Cancer Father Lung Cancer Mother Breast Cancer Sister Relation Name Status Comments Brother Alive Daughter Alive Father Mother Alive Sister Alive Social History Tobacco Use Types Packs/Day Years Used Date Smoking Tobacco: Some Days Smokeless Tobacco: Never Alcohol Use Standard Drinks/Week Comments Yes 0 (1 standard drink = 0.6 oz pur e alcohol) Comments Unknown Sex and Gender Information Value Date Recorded Sex Assigned at Not on file Legal Sex Female 8:34 AM ENTREPRENEURIAL FINANCE PROFESSOR Gender Identity Not on file Sexual Orientation Not on file Last Filed Vital Signs Vital Sign Reading Time Taken Comments Blood Pressure 120/74 01/02/2020 8:08 AM ENTREPRENEURIAL FINANCE PROFESSOR Pulse 60 01/02/2020 8:08 AM ENTREPRENEURIAL FINANCE PROFESSOR Temperature 36.7 C (98 F) 09/30/2015 7:39 AM CDT Respiratory Rate 18 09/30/2015 7:39 AM CDT Oxygen Saturation - - Inhaled Oxygen Concentration - - Weight 91.6 kg (202 lb) 01/02/2020 8:08 AM ENTREPRENEURIAL FINANCE PROFESSOR Height 172.7 cm (5' 8 ) 01/02/2020 8:08 AM ENTREPRENEURIAL FINANCE PROFESSOR Body Mass Index 30.71 01/02/2020 8:08 AM ENTREPRENEURIAL FINANCE PROFESSOR Plan of Treatment Health Maintenance Due Date Last Done Comments DTAP/TDAP/TD VACCINES (1 - Tdap) 01/27/1987 HEPATITIS B VACCINES (1 of 3 - 19+ 3-dose series) 12/31 COLORECTAL SCREENING 01/27/2013 Colorectal Cancer Screening 01/27/2013 FIT-DNA Q 3 years 01/27/2013 FIT/FOBT Q 1 year 01/27/2013 Flex Sig/CT Colonography Q 5 years 01/27/2013 BREAST CANCER SCREENING 08/22/2014 08/22/2013 ZOSTER VACCINE (1 of 2) 01/27/2018 INFLUENZA VACCINE (#1) 2024 Procedures Procedure Name Priority Date/Time Associated Diagnosis Comments MAMMO SCREEN BILAT W OR WO CAD 08/22/2013 12:00 AM CDT from Last 3 Months or Most Recently Relevant to Health Maintenance Results * MAMMO SCREEN BILAT W OR WO CAD (08/22/2013 12:00 AM CDT) Anatomical Region Laterality Modality Breast Bilateral Mammography [facility] Scanning MAMMO ORDERABLES Final Result from Last 3 Months or Most Recently Relevant to Health Maintenance Care Teams Photographic Spotter Relationship Specialty Start Date End Date Burton Judge DO [address] [place] [address] PCP - General Family Practice 09/03/15
--- OUTSIDE RECORDS SUMMARY | 2024-09-30 10:11 | XMS_ITS | Patient Health Record ---
Author Organization [facility] Address [address] [facility] [place] [address] Care Team Providers Care Mine Safety Director Name Role Phone Svitlana Bustamante Primary Care Provider FUNMILAYO Pinzon Unavailable [phone] PAYAM WERNER Unavailable [phone] Allergies Allergen (clinical drug ingredient) Drug/Non Drug Allergy documented on EMR Reaction Allergy Type Onset Date Status mushrooms (uncoded) allergy Allergy Active Coconut Flavor allergy Drug Allergy Ac tive Cymbalta allergy Drug Allergy Active Substance with 1-femhtay-7-methylgluta ryl-coenzyme A reductase inhibitor mechanism of action (substance) Statins allergy Drug Allergy Active Reason For Referral No Information Medications Medication SIG (Take, Route, Frequency, Duration) Notes Start Date End Date Status Paxil 40 MG 1 tablet in the morning Orally Once a day Active Protonix 40 MG 1 tablet Orally twice a day Active Methotrexate sq injections weekly Active Orencia sq injections weekly Active Folic Acid Active Gabapentin 600 MG 1 tablet Orally Once a day Active Eliquis 5 MG 1 tablet Orally Twice a day Active Trelegy Ellipta Acti ve Albuterol Active busPIRone HCl 15 MG 1 tablet Orally Twice a day Active rOPINIRole HCl 4 MG 1 tablet 1 to 3 hours before bedtime Orally Once a day Active SEROquel 200 MG 1 tablet at bedtime Orally Once a day Active Social History Tobacco Use: Social History Observation Description Date Details (start date - stop date) Current Smoker NA - NA Tobacco Control (Standard) Question Answer Notes Tobacco use: Current smoker How often do you smoke cigarettes? Every day How many cigarettes a day do you smoke? 6-10 Section Notes: started smoking at age 3 Problems Problem Type SNOMED Code ICD Code Onset Dates Problem Status W/U Status Risk Notes Problem Current smoker (16152485) Current smoker (F17.200) Active confirmed Problem History of colorectal cancer (1975865254) History of colorectal cancer (Z85.038) Active confirmed Problem History of radiation therapy (616168654) History of radiation therapy (Z92.3) Active confirmed Problem History of hysterectomy (137271547) History of hysterectomy (Z90.710) Active confirmed Problem Colorectal cancer (6817000529) Colorectal cancer (C19) Active confirmed Encounters Encounter Location Date Provider Diagnosis [facility] [address] [place] [address] 10/08/2023 PAYAM WERNER Plan Of Treatment Pending Test Test Name Order Date Renal Ultrasound DIPAK 78158 06/11/2023 Voiding Trial 06/11/2023 Future Test Test Name Order Date Renal Ultrasound DIPAK 73656 09/13/2023 BASIC METABOLIC PANEL (34914) 09/13/2023 Insurance Providers Payer Name Payer Address Payer Phone Subscriber Number Group Number Insured Name Patient Relationship to Insured Coverage Start Date Coverage End Date Aetna Medicare Replacemen t [address] [place], [place] [id number] Maura Hermosillo Self - patient is the insured [place] Medicaid [address] [place], [place] [id number] Maura Hermosillo Self - patient is the insured Medical (General) History Medical History History ICD Code bladder outlet obstruction/ retention Pneumonia colorectal cancer pulmonary embolism acute kidney injury bipolar disorder COPD psoriasis lung mass Surgical History Surgery Date(Month/Year) EGD 2019 colonoscopy 2019 colostomy c section hysterectomy tubal ligation Hospitalization History Reason Date(Month/Year) above
--- OUTSIDE RECORDS SUMMARY | 2024-09-30 10:11 | XMS_ITS | Patient Health Record ---
Author Organization [facility] Address [address] [place] [address] Care Team Providers Care Colorman Name Role Phone Ayan Jay MD Primary Care Provider Eufemia Hoover Unavailable [phone] Allergies Allergen (clinical drug ingredient) Drug/Non Drug Allergy documented on EMR Reaction Allergy Type Onset Date Status Information temporarily unavailable Cymbalta n/v, black out Drug Allergy Active Reason For Referral No Information Medications Medication SIG (Take, Route, Frequency, Duration) Notes Start Date End Date Status Nitroglycerin 0.4 MG Tablet Sublingual 1 tablet Sublingual prn; Duration: 5 Active Eliquis 5 MG Tablet 1 tablet Orally bid; Duration: 37 Active busPIRone HCl 15 MG Tablet 1 tablet Orally Twice a day Active rOPINIRole HCl 2 MG Tablet 1 tablet 1 to 3 hours before bedtime Orally Once a day Active Vitamin B12 1000 MCG Tablet Extended Release 1 tablet Orally Once a day Not-Taking Anoro Ellipta 62.5-25 MCG/INH Aerosol Powder Breath Activated 1 puff Inhalation Once a day Active PROzac 40 MG Capsule 1 capsule Orally On ce a day Not-Taking Methotrexate 2.5 MG/ML Solution 2.5 mg Subcutaneous once a week Active Lyrica 100 MG Capsule 1 capsule Orally tid Active SEROquel XR 300 MG Tablet Extended Release 24 Hour 1 tablet in the evening Orally Once a day Active predniSONE 5 MG Tablet 1 tablet Orally t wice a day Not-Taking SEROquel XR 200 MG Tablet Extended Release 24 Hour 1 tablet in the evening Orally Once a day Active Albuterol Sulfate HFA 108 (90 Base) MCG/ACT Aerosol Solution 1 puff as needed Inhalation every 4 hrs Active Pantoprazole Sodium 40 MG Tablet Delayed Release 1 tablet Orally bid; Duration: 30 day(s) Active Enbrel 50 MG/ML Solution Prefilled Syringe 1 ml Subcutaneous Not-T aking Immunizations Vaccine Route Administration Date Status Comme nts Influenza (whole), CPT 53241 Inactive Unknown 11/30/2015 Administered Influenza (whole), CPT 44768 Inactive Unknown 04/01/2016 Administered Influenza (whole), CPT 02220 Inactive Unknown 01/10/2018 Administered Influenza, seasonal, injecta ble, preservative free, 3 yrs and above Unknown 05/15/2019 Administered Social History Tobacco Use: Social History Observation Description Date Details (start date - stop date) Current Smoker NA - NA Social History Depression Screening Social Info Question Answer Notes PHQ-9 Little interest or pleasure in doing thin gs Not at all Feeling down, depressed, or hopeless Nearly ever y day Trouble falling or staying a sleep, or sleeping too much Nearly every day Feeling tired or having little energy Nearly carla ry day Poor appetite or overeating Nearly every day Feeling bad about yourself, or that you are a failure, or have let yourself or your family down Several days Trouble concentrating on thi ngs, such as reading the newspaper or watching television Several days Moving or speaking so slowly that other people could have noticed. Or the opposite ? being so fidgety or restless that you have been moving around a lot more than usual Several days Thoughts that you would be b renaldo off , or of hurting yourself in some way Not at all Total Score 15 Interpretation Moderately severe depression Drugs/Alcohol: Social Info Question Answer Notes Alcohol Screen (Audit-C) Did you have a drink containing alcohol in the past year? No Points 0 Interpretation Negative Drugs Have you used drugs other than those for medical reasons in the past 12 months? No Tobacco Use: Social Info Question Answer Notes xTobacco Use/Smoking Are you a current smoker How often do you smoke cigarettes? every day How many cigarettes a day do you smoke? 31 or more Additional Details Category Social Info Options Details Miscellaneous: Marital status: Occupation: disabled Problems Problem Type SNOMED Code ICD Code Onset Dates Problem Status W/U Status Risk Notes Problem Depressed bipolar I disorder (57014398) Bipolar disorder, current episode depressed, mild or moderate severity, unspecified (F31.30) Active confirmed Problem Adjustment disorder with mixed disturbance of emotions AND conduct (83594128) Adjustment disorder with mixed disturbance of emotions and conduct (F43.25) Active confirmed Problem Borderline personality disorder (23579828) Borderline personality disorder (F60.3) Active confirmed Problem Fibromyalgia (150550347) Fibromyalgia (M79.7) Active confirmed Problem Colostomy present (328099215) Colostomy status (Z93.3) Active confirmed Problem Anxiety (43340692) Anxiety (F41.9) Active confi rmed Problem COPD - Chronic obstructive pulmonary disease (31070935) Chronic obstructive pulmonary disease, unspecified COPD type (J44.9) Active confirmed Problem Gastroesophageal reflux disease with esophagitis (444990091) Gastroesophageal reflux disease with esophagitis (K21.0) Active confirmed Problem Alcohol abuse (66502738) Alcohol abuse (F10.10) Active confirmed Problem Restless legs (40959333) Restless legs syndrome (RLS) (G25.81) Active confirmed Problem Psoriasis (9091115) Psoriasis (L40.9) Active co nfirmed Problem Rectal cancer (022572743) Rectal cancer (C20) Active confirmed Problem Psoriatic arthritis (629496843) Psoriatic arthritis (L40.50) Active confirmed Problem Chronic depression (871408634) Chronic depression (F32.9) Active confirmed Problem Migraine without aura, not refractory (961522941) Migraine without aura and without status migrainosus, not intractable (G43.009) Active confirmed Problem Tobacco dependence (44669679) Tobacco dependence (F17.200) Active confirmed Problem Pulmonary Embolism (15104640) Pulmonary embolism without acute cor pulmonale, unspecified chronicity, unspecified pulmonary embolism type (I26.99) Active confirmed Problem Primary osteoarthritis (799639065) Primary osteoarthritis involving multiple joints (M89.49) Active confirmed Problem Stimulant abuse (145474362) Stimulant abuse (F15.10) Active confirmed Problem Colostomy hemorrhage (8916466392628706) Bleeding from colostomy stoma (K94.01) Active confirmed Problem History of COVID-19 (612359561799141915 ) History of COVID-19 (Z86.16) Active confirmed Plan Of Treatment Pending Test Test Name Order Date Carcinogenicembryonic Antigen 55552 08/30 CBC w\ Auto Diff 47719 10/21/2020 CBC w\ Auto Diff 97336 09/20/2019 Insurance Providers Payer Name Payer Address Payer Phone Subscriber Number Group Number Insured Name Patient Relationship to Insured Coverage Start Date Coverage End Date Aetna Voluntary [address] [address] [place] [address] [id number] Maura Hermosillo Self - patient is the insured [place] Medicaid [place] [address] [place] [address] [phone] [id number] Maura Hermosillo Self - patient is the insured [place] Medicare [place] [address] [place] [address] [id number] Maura Hermosillo Self - patient is the insured Medical (General) History Medical History History ICD Code Problem:Anxiety (finding) , Status :: Ac tive Problem:Arthritis (disorder) , Status :: Active Problem:Bipolar disorder (disorder) , St atus :: Active Problem:Chronic depression (disorder) , Status :: Active Problem:Chronic obstructive lung disease (disorder) , Status :: Active Problem:Fibromyalgia (disorder) , Status :: Active Problem:Gastroesophageal reflux disease (disorder) , Status :: Active Problem:Hyperlipidemia (disorder) , Stat us :: Active Problem:Obesity (disorder) , Status :: A ctive Problem:Polyp of colon (disorder) , Stat us :: Active Problem:Sleep apnea (finding) , Status : : Active Problem:Viral hepatitis C (disorder) , S tatus :: nonactive Surgical History Surgery Date(Month/Year) tubal ligation ovarian cyst resection hysterectomy, total with bilateral salpi carolina-oophorectomy (BSO) colon resection colostomy Spinal Decompression 2021 Hospitalization History Reason Date(Month/Year) COVID 2021 for surgical procedure
--- OUTSIDE RECORDS SUMMARY | 2024-09-30 10:11 | XMS_ITS | Clinical Summary ---
Author Organization [facility] Address [address] [place] [address] Care Team Providers Care Microbiological Laboratory Technician Name Role Phone Burton Judge DO Primary Care Provider Allergies Active Allergy Reactions Criticality Noted Date Comments Atorvastatin Other (See Comments) 01/02/2020 Woke up and could not feels legs. CK was high Duloxetine Dizziness Low 09/09/2015 Medications cyanocobalamin (VITAMIN B-12) 1,000 mcg/mL Solution Inject 1 mL (1,000 mcg) by intramuscular injection every 30 days. 1 mL 0 6 Active fluticasone-sa lmeterol (ADVAIR HFA) 115-21 mcg/actuation HFA Aerosol Inhaler Take 2 Puffs by inhalation every 12 hours. 12 Gram 1 6 Active QUEtiapine (SEROquel) 100 mg tablet Take 1.5 Tablet (150 mg) by mouth daily at bedtime. 45 Tablet 1 6 Active methotrexate PF 25 mg/mL Solution Inject 0.8 mL (20 mg) by subcutaneous injection every 7 days. 4 mL 1 6 Active hydrOXYzine HCl (ATARAX) 25 mg tablet TAKE ONE TABLET BY MOUTH EVERY 6 HOURS NEEDED FOR ANXIETY 90 Tablet 0 6 Active Eliquis 5 mg tablet TK 1 T PO BID 0 Active EnbreL 50 mg/mL (1 mL) Syringe INJECT 1 ML SUBCUTANEOUSLY Q WEEK 0 Active FLUoxetine (PROzac) 20 mg capsule 0 Active Folic Acid 20 mg Capsule Take by mouth. Acti ve pantoprazole (PROTONIX) 40 mg Tablet, Delayed Release (E.C.) TK 1 T PO BID 0 Active Anoro Ellipta 62.5-25 mcg/actuation Disk with Device 0 Active pregabalin (LYRICA) 100 mg Capsule TK 1 C PO TID 0 Active QUEtiapine (SEROquel) 300 mg tablet TK 1 T PO QHS 0 Active rOPINIRole (REQUIP) 4 mg Tablet 4 mg daily at bedtime. 0 Active Active Problems Problem Noted Date Diagnosed Date Moderate episode of recurrent major depressive d isorder 09/25/2015 Tobacco use 09/23/2015 Other psoriasis 08/14/2010 Chronic low back pain Restless leg syndrome Mild persistent asthma without complication Suicidal ideation Family History Medical History Relation [...] on file Legal Sex Female 5:28 AM OFFICE SPEC Gender Identity Not on file Sexual Orientation Not on file Last Filed Vital Signs Vital Sign Reading Time Taken Comments Blood Pressure 120/74 01/02/2020 8:08 AM OFFICE SPEC Pulse 60 01/02/2020 8:08 AM OFFICE SPEC Temperature 36.7 C (98 F) 09/30/2015 7:39 AM CDT Respiratory Rate 18 09/30/2015 7:39 AM CDT Oxygen Saturation 98% 09/30/2015 7:39 AM CDT Inhaled Oxygen Concentration - - Weight 91.6 kg (202 lb) 01/02/2020 8:08 AM OFFICE SPEC Height 172.7 cm (5' 8 ) 01/02/2020 8:08 AM OFFICE SPEC Body Mass Index 30.71 01/02/2020 8:08 AM OFFICE SPEC Plan of Treatment Health Maintenance Due Date [...] MAMMO SCREEN BILAT W OR WO CAD Routine 08/22/2013 from Last 3 Months or Most Recently Relevant to Health Maintenance Results * MAMMO DIGITAL SCREEN BILAT (08/22/2013) Anatomical Region Laterality Modality Breast Bilateral Other us Abstract Spg Provider MAMMO ORDERABLES Final Res ult from Last 3 Months or Most Recently Relevant to Health Maintenance Insurance [place] Advance Directives For more information, please contact: [phone] * Full Code (Latest Code Status on File) Date Activated Date Inactivated Comments 09/24/2015 5:44 AM 09/30/2015 2:33 PM Care Teams Microbiological Laboratory Technician Relationship Specialty Start Date End Date Burton Judge DO PCP - General Family Practice 09/03/15
--- OUTSIDE RECORDS SUMMARY | 2024-09-30 10:11 | XMS_ITS | Encounter Summary ---
Author Organization [facility] Address [address] [place] [address] Care Team Providers Care Buggy Operator Name Role Phone Burton Judge DO Primary Care Provider [phone] Reason for Referral * Outpatient Services (Routine) - Closed Specialty Diagnoses / Procedures Referred By Thuy hughes Referred To Contact Diagnoses Lower back pain Procedures MRI LUMBAR WO CONTRAST Burton Judge DO Phone: tel: fax: [facility] Pre-Registration [place] CALL TO MAKE APPOINTMENT ONLY [address] [place] [address] Phone: tel: fax: Referral ID Status Reason Start Date Expiration Date V isits Requested Visits Authorized [id number] Closed F [facility] TO SCHEDULE (F) 08/27/2015 09/26/2016 1 1 Encounter Details Date Type Department Care Team (Latest Contact Info) Description 08/27/2015 Ancillary Orders [facility] Pre-Registration [place] CALL TO MAKE APPOINTMENT ONLY [address] [place] [address] Burton Judge DO [address] [place] [address] Lower back pain (Primary Dx) Social History Tobacco Use Types Packs/Day Years Used Date Smoking Tobacco: Some Days Alcohol Use Standard Drinks/Week Comments Not Asked 0 (1 standard drink = 0.6 oz pur e alcohol) Comments Unknown Sex and Gender Information Value Date Recorded Sex Assigned at Not on file Legal Sex Female 5:28 AM TELEPATHIST Gender Identity Not on file Sexual Orientation Not on file documented as of this encounter Plan of Treatment Not on file documented as of this encounter Results * MRI LUMBAR WO CONTRAST (09/09/2015 12:47 PM CDT) Anatomical Region Laterality Modality Spine Magnetic Resonan ce 09/09/2015 12:4 9 PM CDT Impressions 09/09/2015 2:10 PM CDT IMPRESSION: Please see below. Exam: MRI LUMBAR WO CONTRAST Date/Time of Exam: 09/09/2015 12:47 PM Reason For Exam: Lower back pain. Technique: MRI of the lumbar spine was performed without the administration of intravenous contrast. Findings: The lumbar spine is normal in sagittal alignment. The cauda equina and conus medullaris appear normal. No intradural disease is present. Mild type I signal changes are present around the L5-S1 disc space. The paraspinal tissues are unremarkable. L1-2: Normal. L2-3: Normal. L3-4: Normal. L4-5: A mild diffuse bulge of the disc is present. L5-S1: A moderate diffuse bulge of the disc is present. Small herniation and mild spondylosis are present in the left subarticular and foraminal zones IMPRESSION: 1. Mild disc herniation and spondylosis on the left at L5-S1 do not cause appreciable impingement upon the L5 or S1 nerves. Clinical correlation is necessary. 2. DDD changes and mild bony surrounding inflammatory response is seen at L5-S1. Narrative Procedure Note Michael Ricketts MD - 09/09/2015 IMPRESSION IMPRESSION: Please see below. Exam: MRI LUMBAR WO CONTRAST Date/Time of Exam: 09/09/2015 12:47 PM Reason For Exam: Lower back pain. Technique: MRI of the lumbar spine was performed without the administration of intravenous contrast. Findings: The lumbar spine is normal in sagittal alignment. The cauda equina and conus medullaris appear normal. No intradural disease is present. Mild type I signal changes are present around the L5-S1 disc space. The paraspinal tissues are unremarkable. L1-2: Normal. L2-3: Normal. L3-4: Normal. L4-5: A mild diffuse bulge of the disc is present. L5-S1: A moderate diffuse bulge of the disc is present. Small herniation and mild spondylosis are present in the left subarticular and foraminal zones IMPRESSION: 1. Mild disc herniation and spondylosis on the left at L5-S1 do not cause appreciable impingement upon the L5 or S1 nerves. Clinical correlation is necessary. 2. DDD changes and mild bony surrounding inflammatory response is seen at L5-S1. us Burton Judge DO MR ORDERABLES Final Result documented in this encounter Visit Diagnoses Diagnosis Lower back pain- Primary Lumbago Lower back pain Lumbago documented in this encounter Care Teams Buggy Operator Relationship Specialty Start Date End Date Burton Judge DO PCP - General Family Practice 09/03/15 documented as of this encounter
--- OUTSIDE RECORDS SUMMARY | 2024-09-30 10:11 | XMS_ITS | Encounter Summary ---
Author Organization [facility] Address [address] [place] [address] Care Team Providers Care Edge Finisher Name Role Phone Burton Judge DO Primary Care Provider Encounter Details Date Type Department Care Team (Late st Contact Info) Description 07/20/2004 Emergency [facility] Emergency Department [address] [place] [address] Cori Becerril MD EXT HEMORRHOID W/O COMPL (Primary Dx) Social History Tobacco Use Types Packs/Day Years Used Date Smoking Tobacco: Never Assessed Comments Unknown Sex and Gender Information Value Date Recorded Sex Assigned at Not on file Legal Sex Female 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 Gender Identity Not on file Sexual Orientation Not on file documented as of this encounter Plan of Treatment Not on file documented as of this encounter Procedures Procedure Name Priority Date/Time Associated Diagnosis Comments CBC WITH DIFFERENTIAL Routine 07/20/2004 2:50 PM CDT COMPREHENSIVE METABOLIC PANEL Routine 07/20/2004 2:50 PM CDT documented in this encounter Results * COMPREHENSIVE METABOLIC PANEL (07/20/2004 2:50 PM CDT) GLUCOSE 93 70 - 110 mg/dL INTERFACE SYSTEM BUN 16 7 - 17 mg/dL INTERFACE SYSTEM CREATININE 1.0 0.7 - 1.2 mg/dL INTERFACE SYSTEM SODIUM 140 136 - 145 mEq/L INTERFACE SYSTEM POTASSIUM 3.9 3.5 - 5.0 mEq/L INTERFACE SYSTEM CO2 25 22 - 32 mmol/l INTERFACE SYSTEM CHLORIDE 107 95 - 110 mEq/L INTERFACE SYSTEM CALCIUM 8.7 8.4 - 10.5 mg/dL INTERFACE SYSTEM ALKALINE PHOSPHATASE 46 38 - 126 IU/L INTERFACE SYSTEM TOTAL PROTEIN 7.2 6.3 - 8.2 g/dL INTERFACE SYSTEM ALBUMIN 3.7 3.5 - 5.0 g/dL INTERFACE SYSTEM AST 23 14 - 36 IU/L INTERFACE SYSTEM ALT 12 9 - 52 IU/L INTERFACE SYSTEM BILIRUBIN TOTAL 0.5 0.2 - 1.4 mg/dL INTERFACE SYSTEM GLOBULIN (CALC) 3.5 2.4 - 3.9 g/dL INTERFACE SYSTEM ANION GAP 12 9 - 20 mEq/L INTERFACE SYSTEM ALBUMIN/GLOBULIN RATIO 1.1 1.0 - 2.3 INTERFACE SYSTEM OSMOLALITY, CALCULATED 289 275 - 295 mOsm/Kg INTERFACE SYSTEM 07/20/2004 2:50 PM CDT Tobin Castro MD CHEMISTRY ORDERABLES Final Result INTERFACE SYSTEM Refer to clinic/hospital department * (ABNORMAL) CBC WITH DIFFERENTIAL (07/20/2004 2:50 PM CDT) WBC 8.1 4.5 - 11.0 K/ul INTERFACE SYSTEM RBC 4.24 4.20 - 5.40 Mil/ul INTERFACE SYSTEM HEMOGLOBIN 13.2 12.0 - 16.0 g/dL INTERFACE SYSTEM HEMATOCRIT 38.3 36.0 - 46.0 % INTERFACE SYSTEM MCV 90.3 84.0 - 103.0 Fl INTERFACE SYSTEM MCH 31.1 27.0 - 34.0 pg INTERFACE SYSTEM MCHC 34.5 30.0 - 35.0 g/dL INTERFACE SYSTEM RDW 12.4 11.0 - 14.5 % INTERFACE SYSTEM PLATELETS 295 140 - 440 K/ul INTERFACE SYSTEM MPV 9.4 8.9 - 12.8 Fl INTERFACE SYSTEM NEUTROPHILS 67.6 42.2 - 75.2 % INTERFACE SYSTEM LYMPHOCYTES 20.6(L) 24.0 - 44.0 % INTERFACE SYSTEM MONOCYTES 6.9 2.0 - 10.0 % INTERFACE SYSTEM EOSINOPHILS 4.2 0.0 - 7.0 % INTERFACE SYSTEM BASOPHILS 0.7 0.0 - 1.0 % INTERFACE SYSTEM NEUTROPHIL ABSOLUTE 5.5 2.0 - 8.0 K/uL INTERFACE SYSTEM LYMPHOCYTE ABSOLUTE 1.7 1.2 - 4.0 K/ul INTERFACE SYSTEM MONOCYTE ABSOLUTE 0.6 0.1 - 0.6 K/ul INTERFACE SYSTEM EOSINOPHIL ABSOLUTE 0.3 0.0 - 0.7 K/ul INTERFACE SYSTEM BASOPHILS ABSOLUTE 0.1 0.0 - 0.2 K/ul INTERFACE SYSTEM 07/20/2004 2:50 PM CDT us Tobin Castro MD HEMATOLOGY ORDERABLES Julieta atkinson Result INTERFACE SYSTEM Refer to clinic/hospital department documented in this encounter Visit Diagnoses Diagnosis External hemorrhoids without mention of complication- Primary documented in this encounter Care Teams Edge Finisher Relationship Specialty Start Date End Date Burton Judge DO PCP - General Family Practice 09/03/15 documented as of this encounter
--- NOTE | 2024-09-30 10:18 | CTR_ITS ---
PROCEDURE INFORMATION: Exam: CT Abdomen And Pelvis With Contrast Exam date and time: 09/30/2024 10:44 AM Age: 54 years old Clinical indication: Bloating; Abdominal pain; Localized; Lower; Prior surgery; Surgery date: 6+ months; Surgery type: Colostomy, bowel resection, hysterectomy; Colon cancer; Additional info: Abd pain/vomiting TECHNIQUE: Imaging protocol: Computed tomography of the abdomen and pelvis with contrast. Radiation optimization: All CT scans at this facility use at least one of these dose optimization techniques: automated exposure control; mA and/or kV adjustment per patient size (includes targeted exams where dose is matched to clinical indication); or iterative reconstruction. Contrast material: OMNIPAQUE 350; Contrast volume: 100 ml; Contrast route: INTRAVENOUS (IV); COMPARISON: CT abdomen pelvis w con* [id number] 03/23/2024 9:45 PM RADIATION DOSE METRICS: Total DLP (mGy-cm): 615.43 FINDINGS: Lungs: Lung bases are clear. No pleural effusion. Liver: Normal. No mass. Gallbladder and biliary ducts: Normal. No calcified stones. No ductal dilation. Pancreas: Normal. No ductal dilation. Spleen: Normal. No splenomegaly. Adrenal glands: Normal. No mass. Kidneys and ureters: Normal. No hydronephrosis. Stomach and bowel: There is evidence of previous rectal surgery. A left-sided colostomy is noted. Appendix: No evidence of appendicitis. Intraperitoneal space: Unremarkable. No free air. No significant fluid collection. Vasculature: Unremarkable. No abdominal aortic aneurysm. Lymph nodes: Unremarkable. No enlarged lymph nodes. Urinary bladder: Unremarkable as visualized. Reproductive: Unremarkable as visualized. Extraperitoneal space: Mild presacral fibrosis is noted. Bones/joints: Unremarkable. No acute fracture. Soft tissues: Unremarkable. CT/CT abdomen pelvis w con* [id number] IMPRESSION: 1. No acute findings. 2. There is no evidence of active neoplastic disease.
--- NOTE | 2024-09-30 10:19 | W.ED.ABDPA2 ---
HPI - Abdominal Pain General: Chief Complaint: Abdominal Pain Stated Complaint: Feels like a Blood clot in R leg, blockage ABD Time Seen by Provider: 09/30/24 10:15 Source: patient Mode of arrival: ambulatory Limitations: no limitations History of Present Illness: 54-year-old female has had a history of colorectal cancer states she had a colostomy placed roughly 17 years ago she had bowel obstruction in the past she states she has been having some nausea and dry heaves with abdominal pain she rates a 4 out of 10. States she also spoke pain to her right anterior zaragoza denies any calf pain denies any fever Associated Symptoms: Reports nausea and vomiting; Denies chills, diarrhea, dysuria and fever(s) Related Data Home Medications ?Medication ?Instructions ?Recorded ?Confirmed cyanocobalamin (vitamin B-12) 5,000 mcg PO DAILY 04/03/24 09/28/24 5,000 mcg capsule folic acid 1 mg tablet 1 mg PO DAILY 04/03/24 09/28/24 Previous Rx's ?Medication ?Instructions ?Recorded albuterol sulfate 90 mcg/actuation 1 inh inhalation QID PRN shortness 01/12/23 aerosol inhaler of breath or wheezing #8.5 grams methotrexate sodium 25 mg/mL 25 mg SUBCUT Q7D #10 mL 12/28/23 injection solution Held on 03/26/24. Instructions: Resume on 04/03/24. risankizumab-rzaa 150 mg/mL 150 mg SUBCUT .Q12W #4 mL 01/04/24 subcutaneous pen injector (Skyrizi) Held on 03/26/24. Instructions: Resume on 04/03/24. buspirone 15 mg tablet 15 mg PO BID #60 tabs 09/28/24 citalopram 20 mg tablet (Celexa) 20 mg PO DAILY #30 tabs 09/28/24 quetiapine 50 mg tablet 50 mg PO DAILY #30 tabs 09/28/24 ropinirole 1 mg tablet 1 mg PO .nightly #30 tabs 09/28/24 ondansetron 4 mg disintegrating 4 mg PO Q6H PRN nausea and 09/30/24 tablet vomiting #14 tabs ondansetron 4 mg disintegrating 4 mg PO Q6H PRN nausea and 09/30/24 tablet vomiting #14 tabs Allergies Allergy/AdvReac Type Severity Reaction Status Date / Time coconut oil Allergy Severe anaphylaxis Verified 09/30/24 10:13 mushroom Allergy Severe trouble Verified 09/30/24 10:13 breathing duloxetine (From Cymbalta) Allergy Intermediate dizziness,v Verified 09/30/24 10:13 omiting atorvastatin AdvReac Severe Rhabdomyoly Verified 09/30/24 10:13 sis Review of Systems Const: Denies: fever(s), chills, body aches or change in appetite ENMT: Denies: throat pain or dental pain Card: Denies: chest pain Resp: Denies: dyspnea GI: Reports: abdominal pain, nausea and vomiting; Denies: diarrhea : Denies: dysuria Musc: Denies: neck pain or back pain Skin/Breast: Denies: rash Neuro: Denies: headache(s) PFSH ED PFSH: Medical History Cocaine use disorder, severe, in sustained remission Psychiatric care Immunization counseling Plaque psoriasis Small bowel obstruction Nausea & vomiting Small bowel obstruction Obstructive sleep apnea B12 deficiency Acute kidney injury Loss of hair DDD (degenerative disc disease), lumbar Lumbar spondylosis Hydronephrosis of right kidney Rectal cancer Cancer free for 14 years. Lumbar radiculitis Peripheral neuropathy Obstructive sleep apnea Restless leg syndrome Chronic post-traumatic stress disorder Pulmonary embolism CKD (chronic kidney disease) Osteoarthritis of knees, bilateral Immunosuppression Psoriasis Psoriatic arthritis Surgical History Colostomy in place History of resection of rectum H/O: hysterectomy Due to fibroids. H/O tubal ligation Family History Mother Cancer Social History Smoking and tobacco/nicotine status: current every day tobacco/nicotine user cigarettes Packs smoked per day: 0.5 Years cigarettes smoked: 41 [ Other cigarette details: Pt reports smoking at age 3] Alcohol intake: current Alcohol intake frequency: holidays/special occasions only Substance/Drug Use: former Additional social history: cocaine, speed, crystal meth in the past Lives independently: Yes Household members: none Marital status: Legally Current occupational status: disabled Do you think of yourself as: Straight/Heterosexual Current gender identity: Female Physical Exam Const: COMMON NORMALS: no acute distress, patient oriented x3 and healthy appearing HENMT: COMMON NORMALS: normocephalic and atraumatic HEAD & SCALP: normocephalic and atraumatic Eye: COMMON NORMALS: conjunctivae normal CONJUNCTIVA: Yes conjunctivae normal Neck/C-Spine: COMMON NORMALS: full ROM and supple Chest: COMMONS NORMALS: normal inspection of the chest Resp: COMMON NORMALS: normal respiratory effort, No retractions, No use of accessory muscles and clear to auscultation bilaterally AUSCULTATION: clear to auscultation bilaterally Cardio: COMMON NORMALS: regular rate, regular rhythm and No murmurs present (Cardio) RATE: regular rate RHYTHM: regular rhythm GI: COMMON NORMALS: Normal to inspection, nondistended, normoactive bowel sounds present, Soft to palpation, non-tender and no masses PALPATION: Yes Soft to palpation Extremity: OTHER: Tenderness to right anterior zaragoza no signs of blood clot no signs of abscess or cellulitis no calf tenderness. Neuro: COMMON NORMALS: patient oriented x3, moves all extremities and no focal motor deficits Psych: COMMON NORMALS: mental status grossly normal, Normal thought process present and cooperative THOUGHT PROCESS: Normal thought process present Skin: COMMON NORMALS: no rashes or lesions noted and no wounds GENERAL SKIN EXAM: no rashes or lesions noted Course Vital Signs: Vital signs: Vital Signs Temperature 97.6 F 09/30/24 10:07 Pulse Rate 61 09/30/24 11:36 Respiratory Rate 16 09/30/24 11:36 Blood Pressure 112/69 09/30/24 11:36 Pulse Oximetry 99 09/30/24 11:36 Oxygen Delivery Me thod Room Air 09/30/24 10:32 MDM - Abdominal Pain Medical Decision Making Patient presents here with abdominal pain along with vomiting she has been well-appearing here and in no pain here. CT was normal labs are normal as well patient stable for discharge follow-up PCP return if worsening. Medical Records I reviewed the patient's medical records. Lab Data I reviewed the patient's lab results. 09/30/24 10:22 09/30/24 10:22 Labs/Radiology: Radiology Impressions Abdomen/Pelvis CT 09/30/24 10:18 IMPRESSION: 1. No acute findings. 2. There is no evidence of active neoplastic disease. Laboratory Results WBC 6.55 10^3/uL (3.29-11.43) 09/30/24 10:22 RBC 4.33 10^6/uL (3.85-5.65) 09/30/24 10:22 Hgb 13.60 g/dL (11.27-16.99) 09/30/24 10:22 Hct 40.6 % (36-47) 09/30/24 10:22 MCV 93.8 fl (85-98) 09/30/24 10:22 MCH 31.4 pg (27-33) 09/30/24 10:22 MCHC 33.5 g/dL (30-55) 09/30/24 10:22 RDW 12.8 % (12.1-15.1) 09/30/24 10:22 Plt Count 266 10^3/cmm (157-399) 09/30/24 10:22 MPV 9.3 fL (7.4-10.4) 09/30/24 10:22 Neut % (Auto) 65.5 % 09/30/24 10:22 Lymph % (Auto) 26.6 % 09/30/24 10:22 [place] % (Auto) 5.6 % 09/30/24 10:22 Eos % (Auto) 1.2 % 09/30/24 10:22 Baso % (Auto) 0.8 % 09/30/24 10:22 Neut # (Auto) 4.29 10^3/uL (1.8-7.7) 09/30/24 10:22 Lymph # (Auto) 1.7 10^3/uL (0.8-4.8) 09/30/24 10:22 [place] # (Auto) 0.4 10^3/uL (0.2-0.9) 09/30/24 10:22 Eos # (Auto) 0.1 10^3/uL (0.0-0.8) 09/30/24 10:22 Baso # (Auto) 0.1 10^3/uL (0.0-0.1) 09/30/24 10:22 Nucleated RBC % (auto) 0 % 09/30/24 10:22 Nucleated RBCs # 0.0 /100WBC 09/30/24 10:22 Sodium 140 mmol/L (136-145) 09/30/24 10:22 Potassium 4.2 mmol/L (3.5-5.1) 09/30/24 10:22 Chloride 103 mmol/L (98-107) 09/30/24 10:22 Carbon Dioxide 22 mmol/L (22-29) 09/30/24 10:22 Anion Gap 19.2 (5-19) H 09/30/24 10:22 BUN 9 mg/dL (6-20) 09/30/24 10:22 Creatinine 0.8 mg/dL (0.5-0.9) 09/30/24 10:22 GFR Calculation 74.2 mL/min (90-130) L 09/30/24 10:22 Glucose 94 mg/dL (65-115) 09/30/24 10:22 Calculated Osmolality 288 mOsm/kg (285-295) 09/30/24 10:22 Calcium 9.5 mg/dL (8.5-10.5) 09/30/24 10:22 Total Bilirubin 0.7 mg/dL (0.15-1.2) 09/30/24 10:22 AST 17 U/L (0-32) 09/30/24 10:22 ALT 10 U/L (0-33) 09/30/24 10:22 Alkaline Phosphatase 68 U/L (35-105) 09/30/24 10:22 Total Protein 7.4 g/dL (6.6-8.7) 09/30/24 10:22 Albumin 4.3 g/dL (3.5-5.2) 09/30/24 10:22 Globulin 3.1 g/dL (1.3-4.6) 09/30/24 10:22 Lipase 25 U/L (13-60) 09/30/24 10:22 All radiology interpretation(s) finalized by discharge Discharge Plan Discharge Patient Disposition: Home Clinical Impression: Abdominal pain, Vomiting Condition: Stable Prescriptions: New ondansetron 4 mg tablet,disintegrating 4 mg PO Q6H PRN (Reason: nausea and vomiting) Qty: 14 0RF ondansetron 4 mg tablet,disintegrating 4 mg PO Q6H PRN (Reason: nausea and vomiting) Qty: 14 0RF No Action albuterol sulfate 90 mcg/actuation HFA aerosol inhaler 1 inh inhalation QID PRN (Reason: shortness of breath or wheezing) Qty: 8.5 5RF quetiapine 50 mg tablet 50 mg PO DAILY Qty: 30 5RF ropinirole 1 mg tablet 1 mg PO .nightly Qty: 30 5RF Rx Instructions: Take 2 hours before bed. citalopram [Celexa] 20 mg tablet 20 mg PO DAILY Qty: 30 5RF buspirone 15 mg tablet 15 mg PO BID Qty: 60 5RF methotrexate sodium 25 mg/mL solution 25 mg SUBCUT Q7D Qty: 10 1RF Rx Instructions: on fridays folic acid 1 mg tablet 1 mg PO DAILY cyanocobalamin (vitamin B-12) 5,000 mcg capsule 5,000 mcg PO DAILY Skyrizi 150 mg/mL pen injector 150 mg SUBCUT .Q12W Qty: 4 5RF Rx Instructions: subcutaneous injection at Week 0, Week 4, and every 12 weeks thereafter Discharge Orders: Discharge ED (Routine); Ordered 09/30/24 Ordered By: Samuel Monteiro Referrals: Svitlana Bustamante DO [Primary Care Provider, Family Practice] Discharge Diet: Advance as tolerated Discharge Activity: Resume usual activity Patient Instructions: Acute Nausea and Vomiting (ED), Abdominal Pain (ED) Print Language: Kuwaiti Coding Level of Care Code ED Road Traffic Controller for Vicente Tobin
[2024-09-30] MEDS: ondansetron 2 mg/ML SDV 2 mL 4 MG IVP (10:29)
[2024-09-30 10:30] LABS: Hematocrit 40.6 % (36-47); Hemoglobin 13.60 g/dL (11.27-16.99); Mean Corpuscular HGB Conc 33.5 g/dL (30-55); Mean Corpuscular Hemoglobin 31.4 pg (27-33); Mean Corpuscular Volume 93.8 fl (85-98); Nucleated Red Blood Cells % 0 %; Platelet Count 266 10^3/cmm (157-399); Red Blood Count 4.33 10^6/uL (3.85-5.65); White Blood Count 6.55 10^3/uL (3.29-11.43)
[2024-09-30 10:32] VITALS: PULSE 64; RESP 16; O2SAT 98
[2024-09-30 10:47] LABS: Alanine Aminotransferase 10 U/L (0-33); Albumin Level 4.3 g/dL (3.5-5.2); Alkaline Phosphatase 68 U/L (35-105); Anion Gap 19.2 (5-19); Aspartate Amino Transferase 17 U/L (0-32); Blood Urea Nitrogen 9 mg/dL (6-20); Calcium 9.5 mg/dL (8.5-10.5); Carbon Dioxide 22 mmol/L (22-29); Chloride 103 mmol/L (98-107); Creatinine Clr Calc Pharmacy 87.3341; Globulin 3.1 g/dL (1.3-4.6); Glucose 94 mg/dL (65-115); Lipase 25 U/L (13-60); Osmolality Calculated 288 mOsm/kg (285-295); Potassium 4.2 mmol/L (3.5-5.1); Sodium 140 mmol/L (136-145); Total Protein 7.4 g/dL (6.6-8.7)
[2024-09-30] MEDS: iohexol 350 mg/mL 500 mL Btl (per mL) IV (10:49)
[2024-09-30 11:36] VITALS: BP 112/69; PULSE 61; RESP 16; O2SAT 99
[2024-09-30] MEDS: HYDROcodone-acetaminophen 5-325 mg Tablet 1 TAB PO (11:46)
== END 2024-09-30 11:46 | disposition home or self-care (01) ==
PROVIDERS: Emergency Provider Emergency Medicine; PCP Family Medicine
DX: R10.9 Unspecified abdominal pain (principal); R11.10 Vomiting, unspecified; F17.210 Nicotine dependence, cigarettes, uncomplicated; N18.9 Chronic kidney disease, unspecified
CPT/HCPCS: 36415; 74177; 80053; 83690; 85025; 96374; 99285; J2405; J9999

== ENCOUNTER 2024-10-17 11:51 | Outpatient (CLI) | payer MEDICARE, MEDICAID, SELFPAY ==
--- NOTE | 2024-10-17 11:54 | XRR_ITS ---
PROCEDURE INFORMATION: Exam: XR Right Knee Exam date and time: 10/17/2024 12:09 PM Age: 54 years old Clinical indication: Injury or trauma; Blunt trauma; Knee; Right; Injury date: 3 days ago; Injury details: 3 days fall, pain below patella and in lower femur; HX of colorectal; Additional info: Acute right knee pain TECHNIQUE: Imaging protocol: Radiologic exam of the right knee. Views: 3 views. COMPARISON: CR XR knee RT 1-2V [id number] 01/22/2021 7:41 PM FINDINGS: Bones/joints: No displaced fracture nor dislocation seen. No marked joint space narrowing seen. Soft tissues: Slight soft tissue thickening, swelling or prominence anteriorly, prepatellar, infrapatellar, anterior to anterior tibial tuberosity/tubercle obscuring portion of patellar tendon. No metallic foreign body seen. XR/XR knee RT 3V* [id number] IMPRESSION: 1. No displaced fracture seen. 2. Soft tissue swelling, thickening, or prominence anteriorly, prepatellar, infrapatellar, anterior to anterior tibial tuberosity/tubercle obscuring portion of patellar tendon.
== END 2024-10-17 11:52 | disposition home or self-care (01) ==
LOC: LAB 11:52 → RAD 11:54
PROVIDERS: PCP Family Medicine; Visit Provider Family Medicine
DX: S80.01XA Contusion of right knee, initial encounter (principal); W19.XXXA Unspecified fall, initial encounter
CPT/HCPCS: 73562